=== PATIENT | female | born 1940 | race American Indian/Alaskan Native ===

== ENCOUNTER 2017-06-05 14:40 | Emergency (ER) | payer MEDICARE ==
[2017-06-05 15:52] LABS: Urine Drugs of Abuse Note Disclamer
[2017-06-05 15:56] LABS: Basophils % (Auto) 0.9 % (0.0-1.8); Eosinophils % (Auto) 4.2 % (0.0-4.3); Hematocrit 33.9 % (30.3-42.9); Hemoglobin 11.4 gm/dl (10.1-14.3); Mean Corpuscular HGB Conc 34 % (30-34); Mean Corpuscular Hemoglobin 31 pg (28-32); Mean Corpuscular Volume 92 fl (79-97); Platelet Count 206 K/mm3 (140-440); Red Blood Count 3.71 M/mm3 (3.65-5.03); White Blood Count 6.3 K/mm3 (4.5-11.0)
[2017-06-05 16:13] LABS: Albumin 3.7 g/dL (3.9-5); Albumin/Globulin Ratio 1.3 %; Bilirubin,Total 0.9 mg/dL (0.1-1.2); Calcium 8.7 mg/dL (8.4-10.2); Magnesium 1.8 mg/dL (1.7-2.3); Total Protein 6.6 g/dL (6.3-8.2)
[2017-06-05 16:14] LABS: Chloride 96.7 mmol/L (98-107); Potassium 4.4 mmol/L (3.6-5.0)
[2017-06-05 16:23] LABS: Bilirubin,Urine NEG (Negative); Blood,Urine NEG (Negative); Ketones,Urine NEG (Negative); Leukocyte Esterase,Urine NEG (Negative); Nitrite,Urine NEG (Negative); Protein,Urine <15 mg/dL mg/dL (Negative); Urobilinogen,Urine < 2.0 mg/dL (<2.0)
--- NOTE | 2017-06-05 18:36 | Cat Scan Report ---
FINAL REPORT PROCEDURE: CT HEAD/BRAIN WO CON TECHNIQUE: Computerized tomography of the head was performed without contrast material. HISTORY: slurred speech COMPARISON: No prior studies are available for comparison. FINDINGS: Brain: There is no evidence of intracranial hemorrhage. No parenchymal hemorrhage is seen. No mass lesions or mass effect is identified. No abnormal extra-axial fluid collections or masses are seen. Nonspecific mineralization of the basal ganglia visualized on the right. There is some decreased density seen in the periventricular white matter without mass effect. This is fairly symmetric and does not exhibit any mass effect consistent with gliosis probably on the basis of microvascular disease or white matter changes of aging. Ventricles: The ventricles, sulcal pattern and fissures are prominent consistent with atrophy. Bones: No evidence of acute fracture. Paranasal sinuses: Visualized portions appear clear. Mastoid air cells: clear IMPRESSION: There is evidence of mild atrophy and gliosis. No acute intracranial abnormalities are seen. If symptoms persist or worsen consider follow-up CT scan or MRI for further evaluation.
--- NOTE | 2017-06-05 18:52 | Emergency Department Report ---
ED General Adult HPI - General Chief complaint: Dizziness Stated complaint: SLURRED SPEECH,DIZZINESS Time Seen by Provider: 06/05/17 16:10 Source: patient, family, EMS Mode of arrival: Stretcher Limitations: Physical Limitation - History of Present Illness Initial comments: The patient had a very vague episode during dialysis. According to her and the staff that she might be having a stroke. The patient herself is completely at her baseline. The states there is no slurred speech or any focal neurological signs. He clearly states that her mental status does wax and wane due to dementia. The patient is unable to tell me her corrected age of month and year. She can' t tell me that she's in an emergency department. All this is her baseline. Her speech is not slurred. She has no current complaints. -: minutes(s) Consistency: now resolved Improves with: none Worsens with: none Associated Symptoms: denies other symptoms - Related Data Home Medications Medication Instructions Recorded Confirmed Last Taken Carvedilol [Coreg] 25 mg PO BID 01/19/15 09/19/16 06/20/16 Gabapentin 300 mg PO BID 01/19/15 09/19/16 06/20/16 Insulin NPH Hum/Reg Insulin Hm 35 unit SQ QAM 01/19/15 09/19/16 06/20/16 [HumuLIN 70-30 Vial] Pantoprazole Sodium [Protonix] 40 mg PO QDAY 01/19/15 09/19/16 06/20/16 amLODIPine [Norvasc] 10 mg PO DAILY 01/19/15 09/19/16 06/20/16 Dorzolamide HCl/Timolol Maleat 10 ml OP QDAY 09/19/16 09/19/16 Unknown [Dorzolamide-Timolol Eye Drops] Torsemide [Demadex] 10 mg PO QDAY 09/19/16 09/19/16 Unknown Previous Rx's Medication Instructions Recorded Last Taken Type Levofloxacin [Levaquin TAB] 500 mg PO QDAY #7 tablet 09/21/16 Unknown Rx Allergies Allergy/AdvReac Type Severity Reaction Status Date / Time methadone AdvReac Vomiting Verified 04/06/15 11:54 tramadol AdvReac Vomiting Verified 04/06/15 11:54 unknown Allergy Unknown Uncoded 04/06/15 11:54 ED Review of Systems ROS: Stated complaint: SLURRED SPEECH,DIZZINESS Other details as noted in HPI Comment: All other systems reviewed and negative (but limited secondary to dementia) ED Past Medical Hx - Past Medical History Previous Medical History?: Yes Hx Hypertension: Yes Hx Heart Attack/AMI: No Hx Congestive Heart Failure: Yes Hx Diabetes: Yes Hx Deep Vein Thrombosis: No Hx Pulmonary Embolism: No Hx Liver Disease: No Hx Renal Disease: Yes Hx Sickle Cell Disease: No Hx Arthritis: No Hx Seizures: No Hx Kidney Stones: No Hx Asthma: No Hx COPD: No Hx Tuberculosis: No Hx Dementia: No Hx HIV: No - Surgical History Past Surgical History?: Yes Hx Coronary Stent: No Hx Pacemaker: No Hx Internal Defibrillator: No Additional Surgical History: L kidney removed, Back surgery, Hysterectomy - Social History Smoking Status: Former Smoker Substance Use Type: Prescribed - Medications Home Medications: Home Medications Medication Instructions Recorded Confirmed Last Taken Type Carvedilol [Coreg] 25 mg PO BID 01/19/15 09/19/16 06/20/16 History Gabapentin 300 mg PO BID 01/19/15 09/19/16 06/20/16 History Insulin NPH Hum/Reg Insulin Hm 35 unit SQ QAM 01/19/15 09/19/16 06/20/16 History [HumuLIN 70-30 Vial] Pantoprazole Sodium [Protonix] 40 mg PO QDAY 01/19/15 09/19/16 06/20/16 History amLODIPine [Norvasc] 10 mg PO DAILY 01/19/15 09/19/16 06/20/16 History Dorzolamide HCl/Timolol Maleat 10 ml OP QDAY 09/19/16 09/19/16 Unknown History [Dorzolamide-Timolol Eye Drops] Torsemide [Demadex] 10 mg PO QDAY 09/19/16 09/19/16 Unknown History Levofloxacin [Levaquin TAB] 500 mg PO QDAY #7 tablet 09/21/16 Unknown Rx ED Physical Exam - General Limitations: Physical Limitation General appearance: alert, in no apparent distress - Head Head exam: Present: atraumatic, normocephalic - Eye Eye exam: Present: normal appearance, PERRL, EOMI. Absent: scleral icterus - ENT ENT exam: Present: normal exam, mucous membranes moist - Neck Neck exam: Present: normal inspection. Absent: tenderness, meningismus - Respiratory Respiratory exam: Present: normal lung sounds bilaterally. Absent: respiratory distress - Cardiovascular Cardiovascular Exam: Present: regular rate, normal rhythm. Absent: systolic murmur, diastolic murmur, rubs, gallop - GI/Abdominal GI/Abdominal exam: Present: soft, normal bowel sounds. Absent: distended, tenderness, guarding, rebound, rigid - Extremities Exam Extremities exam: Present: normal inspection - Back Exam Back exam: Present: normal inspection - Neurological Exam Neurological exam: Present: alert, oriented X3, CN II-XII intact. Absent: motor sensory deficit - Psychiatric Psychiatric exam: Present: normal mood, flat affect - Skin Skin exam: Present: warm, dry, intact, normal color. Absent: rash ED Course Vital Signs 06/05/17 06/05/17 06/05/17 14:47 14:51 15:00 Temperature 98.4 F Pulse Rate 79 84 Respiratory 17 15 16 Rate Blood Pressure 122/57 127/47 Blood Pressure 122/57 [Right] O2 Sat by Pulse 95 93 Oximetry 06/05/17 06/05/17 06/05/17 15:16 15:30 15:46 Temperature Pulse Rate 92 H 90 84 Respiratory 14 15 11 L Rate Blood Pressure 127/47 127/47 127/47 Blood Pressure [Right] O2 Sat by Pulse 92 91 Oximetry 06/05/17 06/05/17 06/05/17 16:00 16:16 16:30 Temperature Pulse Rate 82 80 71 Respiratory 16 15 11 L Rate Blood Pressure 127/47 127/47 143/59 Blood Pressure [Right] O2 Sat by Pulse 97 96 98 Oximetry 06/05/17 06/05/17 06/05/17 16:36 16:45 17:00 Temperature Pulse Rate 76 74 70 Respiratory 14 11 L 13 Rate Blood Pressure 125/64 120/54 Blood Pressure 130/61 [Right] O2 Sat by Pulse 99 98 99 Oximetry 06/05/17 06/05/17 06/05/17 17:51 18:00 18:15 Temperature Pulse Rate 79 81 77 Respiratory 16 14 20 Rate Blood Pressure 125/64 128/69 125/51 Blood Pressure [Right] O2 Sat by Pulse 95 97 Oximetry ED Medical Decision Making - Lab Data Result diagrams: 06/05/17 15:40 06/05/17 15:40 Laboratory Results - last 24 hr 11/15/17 11/15/17 11/15/17 15:30 15:40 15:40 WBC 6.3 RBC 3.71 Hgb 11.4 Hct 33.9 MCV 92 MCH 31 MCHC 34 RDW 14.0 Plt Count 206 Lymph % (Auto) 36.4 H [place] % (Auto) 4.4 Eos % (Auto) 4.2 Baso % (Auto) 0.9 Lymph # 2.3 [place] # 0.3 Eos # 0.3 Baso # 0.1 Seg Neutrophils % 54.1 Seg Neutrophils # 3.4 Sodium 140 Potassium 4.4 Chloride 96.7 L Carbon Dioxide 29 Anion Gap 19 BUN 9 Creatinine 1.1 Estimated GFR 59 BUN/Creatinine Ratio 8 Glucose 206 H POC Glucose Lactic Acid 1.90 Calcium 8.7 Magnesium 1.80 Total Bilirubin 0.90 AST 17 ALT 19 Alkaline Phosphatase 125 Total Protein 6.6 Albumin 3.7 L Albumin/Globulin Ratio 1.3 TSH Urine Color Urine Turbidity Urine pH Ur Specific [place] Urine Protein Urine Glucose (UA) Urine Ketones Urine Blood Urine Nitrite Urine Bilirubin Urine Urobilinogen Ur Leukocyte Esterase Urine WBC (Auto) Urine RBC (Auto) U Epithel Cells (Auto) Salicylates Urine Opiates Screen Urine Methadone Screen Acetaminophen Ur Barbiturates Screen Ur Phencyclidine Scrn Ur Amphetamines Screen U Benzodiazepines Scrn Urine Cocaine Screen U Marijuana (THC) Screen Drugs of Abuse Note Plasma/Serum Alcohol 06/05/17 06/05/17 06/05/17 15:40 15:40 15:40 WBC RBC Hgb Hct MCV MCH MCHC RDW Plt Count Lymph % (Auto) [place] % (Auto) Eos % (Auto) Baso % (Auto) Lymph # [place] # Eos # Baso # Seg Neutrophils % Seg Neutrophils # Sodium Potassium Chloride Carbon Dioxide Anion Gap BUN Creatinine Estimated GFR BUN/Creatinine Ratio Glucose POC Glucose Lactic Acid Calcium Magnesium Total Bilirubin AST ALT Alkaline Phosphatase Total Protein Albumin Albumin/Globulin Ratio TSH 1.810 Urine Color Urine Turbidity Urine pH Ur Specific [place] Urine Protein Urine Glucose (UA) Urine Ketones Urine Blood Urine Nitrite Urine Bilirubin Urine Urobilinogen Ur Leukocyte Esterase Urine WBC (Auto) Urine RBC (Auto) U Epithel Cells (Auto) Salicylates < 0.3 L Urine Opiates Screen Urine Methadone Screen Acetaminophen < 15.0 Ur Barbiturates Screen Ur Phencyclidine Scrn Ur Amphetamines Screen U Benzodiazepines Scrn Urine Cocaine Screen U Marijuana (THC) Screen Drugs of Abuse Note Plasma/Serum Alcohol 06/05/17 06/05/17 06/05/17 15:40 15:47 15:48 WBC RBC Hgb Hct MCV MCH MCHC RDW Plt Count Lymph % (Auto) [place] % (Auto) Eos % (Auto) Baso % (Auto) Lymph # [place] # Eos # Baso # Seg Neutrophils % Seg Neutrophils # Sodium Potassium Chloride Carbon Dioxide Anion Gap BUN Creatinine Estimated GFR BUN/Creatinine Ratio Glucose POC Glucose 223 H Lactic Acid Calcium Magnesium Total Bilirubin AST ALT Alkaline Phosphatase Total Protein Albumin Albumin/Globulin Ratio TSH Urine Color Yellow Urine Turbidity Clear Urine pH 7.0 Ur Specific [place] 1.013 Urine Protein <15 mg/dl Urine Glucose (UA) >=500 Urine Ketones Neg Urine Blood Neg Urine Nitrite Neg Urine Bilirubin Neg Urine Urobilinogen < 2.0 Ur Leukocyte Esterase Neg Urine WBC (Auto) 4.0 Urine RBC (Auto) 1.0 U Epithel Cells (Auto) 3.0 Salicylates Urine Opiates Screen Urine Methadone Screen Acetaminophen Ur Barbiturates Screen Ur Phencyclidine Scrn Ur Amphetamines Screen U Benzodiazepines Scrn Urine Cocaine Screen U Marijuana (THC) Screen Drugs of Abuse Note Plasma/Serum Alcohol < 0.01 06/05/17 06/05/17 15:48 18:03 WBC RBC Hgb Hct MCV MCH MCHC RDW Plt Count Lymph % (Auto) [place] % (Auto) Eos % (Auto) Baso % (Auto) Lymph # [place] # Eos # Baso # Seg Neutrophils % Seg Neutrophils # Sodium Potassium Chloride Carbon Dioxide Anion Gap BUN Creatinine Estimated GFR BUN/Creatinine Ratio Glucose POC Glucose Lactic Acid 1.00 Calcium Magnesium Total Bilirubin AST ALT Alkaline Phosphatase Total Protein Albumin Albumin/Globulin Ratio TSH Urine Color Urine Turbidity Urine pH Ur Specific [place] Urine Protein Urine Glucose (UA) Urine Ketones Urine Blood Urine Nitrite Urine Bilirubin Urine Urobilinogen Ur Leukocyte Esterase Urine WBC (Auto) Urine RBC (Auto) U Epithel Cells (Auto) Salicylates Urine Opiates Screen Presumptive negative Urine Methadone Screen Presumptive negative Acetaminophen Ur Barbiturates Screen Presumptive negative Ur Phencyclidine Scrn Presumptive negative Ur Amphetamines Screen Presumptive negative U Benzodiazepines Scrn Presumptive negative Urine Cocaine Screen Presumptive negative U Marijuana (THC) Screen Presumptive negative Drugs of Abuse Note Disclamer Plasma/Serum Alcohol - EKG Data -: EKG Interpreted by In EKG shows normal: sinus rhythm, axis, intervals, QRS complexes, ST-T waves Rate: normal - EKG Data Interpretation: other (minute piece nonspecific changes) Critical care attestation.: If time is entered above; I have spent that time in minutes in the direct care of this critically ill patient, excluding procedure time. ED Disposition Clinical Impression: Dementia Altered mental status Qualifiers: Altered mental status type: transient alteration of awareness Qualified Code(s) : R40.4 - Transient alteration of awareness Disposition: DC-01 TO HOME OR SELFCARE Is pt being admited?: No Does the pt Need Aspirin: No Condition: Stable Instructions: Dementia (ED), Altered Mental Status (ED) Additional Instructions: Return any acute change or problem. Referrals: PRIMARY CARE, [Primary Care Provider] - 3-5 Days Time of Disposition: 18:54
[2017-06-05 19:02] VITALS: BP 137/95
== END 2017-06-05 19:02 | disposition home or self-care (01) ==
LOC: ED 14:40
DX: F03.90 Unspecified dementia, unspecified severity, without behavioral disturbance, psychotic disturbance, mood disturbance, and anxiety (principal); I10 Essential (primary) hypertension; E11.9 Type 2 diabetes mellitus without complications
CPT/HCPCS: 36415; 70450; 80053; 80307; 81001; 82140; 82962; 83735; 84443; 85025; 93005; 93010; 99285; G0480; 80320

== ENCOUNTER 2017-06-15 17:10 | Inpatient (IN) | payer MEDICARE ==
[2017-06-15] MEDS ORDERED: NACL 0.9% 500 ML 500 ML ONE (18:12)
[2017-06-15] MEDS ORDERED: NACL 0.9% 500 ML 500 ML IV ONE ×2 (18:17→23:22)
[2017-06-15 19:22] LABS: Basophils % (Auto) 0.7 % (0.0-1.8); Eosinophils % (Auto) 1.1 % (0.0-4.3); Hematocrit 31.5 % (30.3-42.9); Hemoglobin 10.2 gm/dl (10.1-14.3); Mean Corpuscular HGB Conc 33 % (30-34); Mean Corpuscular Hemoglobin 32 pg (28-32); Mean Corpuscular Volume 97 fl (79-97); Platelet Count 205 K/mm3 (140-440); Red Blood Count 3.25 M/mm3 (3.65-5.03); Red Cell Distribution Width 15.8 % (13.2-15.2); White Blood Count 3.7 K/mm3 (4.5-11.0)
[2017-06-15 19:34] LABS: Calcium 8.5 mg/dL (8.4-10.2); Chloride 96.3 mmol/L (98-107); Potassium 3.9 mmol/L (3.6-5.0)
[2017-06-15] MEDS ORDERED: NACL 0.9% 500 ML IV SCH (20:00)
--- NOTE | 2017-06-15 20:11 | Emergency Department Report ---
- General Chief complaint: Hyperglycemia Stated complaint: AMS Time Seen by Provider: 06/15/17 19:44 Source: patient, family, EMS Mode of arrival: Stretcher Limitations: Physical Limitation - History of Present Illness Initial comments: 76 yo female renal dialysis pt who was dialyzed yesterday is here with hyperglycemia and weakness . She had an episode of nausea with vomiting yesterday-only a single episode . She denies sob/chest pain but feels tired. her weakness usually goes away within a few hours after dialysis but thsi has continued. Severity scale (0 -10): 0 - Related Data Home Medications Medication Instructions Recorded Confirmed Last Taken Carvedilol [Coreg] 25 mg PO BID 01/19/15 09/19/16 06/20/16 Gabapentin 300 mg PO BID 01/19/15 09/19/16 06/20/16 Insulin NPH Hum/Reg Insulin Hm 35 unit SQ QAM 01/19/15 09/19/16 06/20/16 [HumuLIN 70-30 Vial] Pantoprazole Sodium [Protonix] 40 mg PO QDAY 01/19/15 09/19/16 06/20/16 amLODIPine [Norvasc] 10 mg PO DAILY 01/19/15 09/19/16 06/20/16 Dorzolamide HCl/Timolol Maleat 10 ml OP QDAY 09/19/16 09/19/16 Unknown [Dorzolamide-Timolol Eye Drops] Torsemide [Demadex] 10 mg PO QDAY 09/19/16 09/19/16 Unknown Previous Rx's Medication Instructions Recorded Last Taken Type Levofloxacin [Levaquin TAB] 500 mg PO QDAY #7 tablet 09/21/16 Unknown Rx Allergies Allergy/AdvReac Type Severity Reaction Status Date / Time methadone AdvReac Vomiting Verified 04/06/15 11:54 tramadol AdvReac Vomiting Verified 04/06/15 11:54 unknown Allergy Unknown Uncoded 04/06/15 11:54 ED Review of Systems ROS: Stated complaint: AMS Other details as noted in HPI Constitutional: denies: chills, fever Eyes: denies: eye pain, eye discharge, vision change ENT: denies: ear pain, throat pain Respiratory: denies: cough, shortness of breath, wheezing Cardiovascular: denies: chest pain, palpitations Endocrine: no symptoms reported Gastrointestinal: nausea, vomiting. denies: abdominal pain, diarrhea Genitourinary: denies: urgency, dysuria, discharge Musculoskeletal: denies: back pain, joint swelling, arthralgia Skin: denies: rash, lesions Neurological: weakness. denies: headache, paresthesias Psychiatric: denies: anxiety, depression Hematological/Lymphatic: denies: easy bleeding, easy bruising ED Past Medical Hx - Past Medical History Hx Hypertension: Yes Hx Heart Attack/AMI: No Hx Congestive Heart Failure: Yes Hx Diabetes: Yes Hx Deep Vein Thrombosis: No Hx Pulmonary Embolism: No Hx Liver Disease: No Hx Renal Disease: Yes Hx Sickle Cell Disease: No Hx Arthritis: No Hx Seizures: No Hx Kidney Stones: No Hx Asthma: No Hx COPD: No Hx Tuberculosis: No Hx Dementia: No Hx HIV: No - Surgical History Hx Coronary Stent: No Hx Pacemaker: No Hx Internal Defibrillator: No Additional Surgical History: L kidney removed, Back surgery, Hysterectomy - Social History Smoking Status: Current Some Day Smoker Substance Use Type: None - Medications Home Medications: Home Medications Medication Instructions Recorded Confirmed Last Taken Type Carvedilol [Coreg] 25 mg PO BID 01/19/15 09/19/16 06/20/16 History Gabapentin 300 mg PO BID 01/19/15 09/19/16 06/20/16 History Insulin NPH Hum/Reg Insulin Hm 35 unit SQ QAM 01/19/15 09/19/16 06/20/16 History [HumuLIN 70-30 Vial] Pantoprazole Sodium [Protonix] 40 mg PO QDAY 01/19/15 09/19/16 06/20/16 History amLODIPine [Norvasc] 10 mg PO DAILY 01/19/15 09/19/16 06/20/16 History Dorzolamide HCl/Timolol Maleat 10 ml OP QDAY 09/19/16 09/19/16 Unknown History [Dorzolamide-Timolol Eye Drops] Torsemide [Demadex] 10 mg PO QDAY 09/19/16 09/19/16 Unknown History Levofloxacin [Levaquin TAB] 500 mg PO QDAY #7 tablet 09/21/16 Unknown Rx ED Physical Exam - General Limitations: Physical Limitation General appearance: alert, in no apparent distress, other (appears weak,not energized enough to sit up) - Head Head exam: Present: atraumatic, normocephalic - Eye Eye exam: Present: normal appearance, EOMI. Absent: scleral icterus, conjunctival injection - ENT ENT exam: Present: mucous membranes dry - Neck Neck exam: Present: normal inspection, full ROM - Respiratory Respiratory exam: Present: normal lung sounds bilaterally, rales (bases). Absent: respiratory distress - Cardiovascular Cardiovascular Exam: Present: regular rate, normal rhythm. Absent: systolic murmur, diastolic murmur, rubs, gallop - GI/Abdominal GI/Abdominal exam: Present: soft, normal bowel sounds - Rectal Rectal exam: Present: deferred - Extremities Exam Extremities exam: Present: normal inspection, pedal edema (trace) - Back Exam Back exam: Present: normal inspection, full ROM - Neurological Exam Neurological exam: Present: alert, oriented X3 - Psychiatric Psychiatric exam: Present: normal mood, depressed - Skin Skin exam: Present: warm, dry, intact, normal color, other (midline lower abdominal surgical scar). Absent: rash - Assessment Assessment Interval: Baseline - Level of Consciousness 1a. Level of Consciousness: alert - LOC Questions 1b. LOC Questions: answers correctly - LOC Command 1c. LOC Commands: performs tasks correctly - Best Gaze 2. Best Gaze: normal - Visual 3. Visual: no visual loss - Facial Palsy 4. Facial Palsy: normal symmetrical movement - Motor Arm 5b. Motor Arm Right: no drift 5a. Motor Arm Left: no drift - Limb Ataxia 7. Limb Ataxia: absent - Sensory 8. Sensory: normal - Best Language 9. Best Language: no aphasia - Dysarthria 10. Dysarthria: normal ED Course Vital Signs 06/15/17 06/15/17 06/15/17 17:22 17:55 18:00 Temperature 97.4 F L 97.4 F L Pulse Rate 56 L 53 L Respiratory 18 18 18 Rate Blood Pressure 93/52 Blood Pressure 93/52 [Left] O2 Sat by Pulse 97 97 96 Oximetry 06/15/17 06/15/17 06/15/17 23:11 23:13 23:15 Temperature Pulse Rate Respiratory Rate Blood Pressure 86/34 86/34 86/34 Blood Pressure [Left] O2 Sat by Pulse 94 89 91 Oximetry 06/15/17 06/15/17 06/15/17 23:17 23:19 23:21 Temperature Pulse Rate Respiratory Rate Blood Pressure 86/34 86/34 86/34 Blood Pressure [Left] O2 Sat by Pulse 91 84 88 Oximetry 06/15/17 06/15/17 06/15/17 23:23 23:25 23:27 Temperature Pulse Rate Respiratory Rate Blood Pressure 86/34 86/34 86/34 Blood Pressure [Left] O2 Sat by Pulse 89 84 81 L Oximetry 06/15/17 06/15/17 06/15/17 23:29 23:31 23:33 Temperature Pulse Rate Respiratory Rate Blood Pressure 86/34 86/34 86/34 Blood Pressure [Left] O2 Sat by Pulse 79 L 89 90 Oximetry 06/15/17 06/15/17 06/15/17 23:35 23:37 23:39 Temperature Pulse Rate Respiratory Rate Blood Pressure 86/34 86/34 86/34 Blood Pressure [Left] O2 Sat by Pulse 85 89 86 Oximetry 06/15/17 06/15/17 06/15/17 23:41 23:43 23:45 Temperature Pulse Rate Respiratory Rate Blood Pressure 86/34 86/34 86/34 Blood Pressure [Left] O2 Sat by Pulse 84 90 95 Oximetry 06/15/17 06/15/17 06/15/17 23:47 23:49 23:51 Temperature Pulse Rate Respiratory Rate Blood Pressure 86/34 86/34 86/34 Blood Pressure [Left] O2 Sat by Pulse 84 83 L 82 L Oximetry 06/15/17 06/15/17 06/15/17 23:53 23:55 23:57 Temperature Pulse Rate Respiratory Rate Blood Pressure 86/34 86/34 86/34 Blood Pressure [Left] O2 Sat by Pulse 84 88 100 Oximetry 06/15/17 06/16/17 06/16/17 23:59 00:00 00:02 Temperature Pulse Rate Respiratory Rate Blood Pressure 86/34 92/39 90/39 Blood Pressure [Left] O2 Sat by Pulse 96 86 82 L Oximetry 06/16/17 06/16/17 06/16/17 00:05 00:07 00:09 Temperature Pulse Rate Respiratory Rate Blood Pressure 90/39 90/39 90/39 Blood Pressure [Left] O2 Sat by Pulse 87 90 100 Oximetry 06/16/17 06/16/17 06/16/17 00:11 00:12 00:15 Temperature Pulse Rate Respiratory Rate Blood Pressure 88/44 88/44 98/54 Blood Pressure [Left] O2 Sat by Pulse 96 96 100 Oximetry 06/16/17 06/16/17 06/16/17 00:17 00:19 00:21 Temperature Pulse Rate Respiratory Rate Blood Pressure 98/54 98/54 98/54 Blood Pressure [Left] O2 Sat by Pulse 100 100 100 Oximetry 06/16/17 06/16/17 06/16/17 00:23 00:25 00:27 Temperature Pulse Rate Respiratory Rate Blood Pressure 98/54 98/54 98/54 Blood Pressure [Left] O2 Sat by Pulse 100 100 100 Oximetry 06/16/17 06/16/17 06/16/17 00:29 00:30 00:33 Temperature Pulse Rate Respiratory Rate Blood Pressure 98/54 90/55 90/55 Blood Pressure [Left] O2 Sat by Pulse 100 100 100 Oximetry 06/16/17 06/16/17 06/16/17 00:34 00:37 00:39 Temperature Pulse Rate Respiratory Rate Blood Pressure 90/55 90/55 90/55 Blood Pressure [Left] O2 Sat by Pulse 100 99 Oximetry 06/16/17 06/16/17 06/16/17 00:40 00:43 00:45 Temperature Pulse Rate 60 Respiratory Rate Blood Pressure 90/47 90/47 90/47 Blood Pressure [Left] O2 Sat by Pulse 97 100 100 Oximetry 06/16/17 06/16/17 06/16/17 00:47 00:49 00:52 Temperature 97.6 F Pulse Rate 63 61 59 L Respiratory 22 14 18 Rate Blood Pressure 90/47 90/47 Blood Pressure 88/44 [Left] O2 Sat by Pulse 100 100 99 Oximetry - Reevaluation(s) Reevaluation #1: 06/16/17 02:46 pt had small boluses of normal saline each time watching her pressure. she received 250ml, per time then eventually started on levaphed ater antibiiotics and 1000 had been given. - Central Line Placement Right Femoral Consent Obtained: verbal consent Time Out Performed: Yes MD Prep: mask, gown, gloves, other (head cover) Central Line Prep: Chlorhexidine scrub (x2) Local Anesthesia Used: Lidocaine 2% Amount of Anesthesia Used (mls): 5 Ultrasound Used for Placement: Yes Central Line Lumen Inserted: triple Bloods Obtained for Lab: No Central Line Position: good blood return, all ports aspirated, flus, sutured in place with 2-0 Dressing Applied: Tegaderm, sterile gauze/tape Post Procedure X-Ray: tip of catheter in good p Patient Tolerated Procedure: well Complications: none ED Medical Decision Making - Lab Data Result diagrams: 06/15/17 19:00 06/15/17 19:00 Critical Care Time: Yes Critical care time in (mins) excluding proc time.: 90 Critical care attestation.: If time is entered above; I have spent that time in minutes in the direct care of this critically ill patient, excluding procedure time. daniele Critical Care Time: 90 minutes ED Disposition Clinical Impression: Acute UTI, Hyperglycemia Sepsis Qualifiers: Sepsis type: sepsis due to unspecified organism Qualified Code(s): A41.9 - Sepsis, unspecified organism Altered mental status Qualifiers: Altered mental status type: transient alteration of awareness Qualified Code(s) : R40.4 - Transient alteration of awareness UTI (urinary tract infection) Qualifiers: Urinary tract infection type: acute cystitis Hematuria presence: without hematuria Qualified Code(s): N30.00 - Acute cystitis without hematuria Disposition: OP ADMIT IP TO THIS HOSP Is pt being admited?: Yes Does the pt Need Aspirin: No Condition: Critical Referrals: PRIMARY CARE, [Primary Care Provider] - 3-5 Days Time of Disposition: 02:49 (case reviewed with dr sydney Mcneil and she will admit pt to hospital)
[2017-06-15 20:38] LABS: Bacteria,Urine 1+ /HPF (Negative); Bilirubin,Urine SM (Negative); Blood,Urine MOD (Negative); Ketones,Urine NEG (Negative); Leukocyte Esterase,Urine MOD (Negative); Mucus,Urine 1+ /HPF; Nitrite,Urine NEG (Negative)
[2017-06-15 20:52] LABS: INR 1.31 (0.87-1.13)
[2017-06-15 20:53] LABS: Partial Thromboplastin Time 35.3 Sec. (24.2-36.6)
--- NOTE | 2017-06-15 20:57 | Cat Scan Report ---
FINAL REPORT PROCEDURE: CT HEAD/BRAIN W/O CON TECHNIQUE: Computerized tomography of the head was performed without contrast material. HISTORY: ams COMPARISON: 06/05/2017 FINDINGS: Skull and scalp: Normal. Paranasal sinuses: Mucosal thickening is noted involving left maxillary sinus.. Ventricles and subarachnoid spaces: Are prominent consistent with cerebral atrophy.. Cerebrum: No evidence of hemorrhage, acute infarction or mass . Cerebellum and brainstem: No evidence of hemorrhage, acute infarction or mass. Vasculature: Atherosclerotic calcification is noted involving bilateral internal carotid and vertebral arteries.. Comments: None. IMPRESSION: Cerebral atrophy appropriate for patient's age. Chronic left maxillary sinusitis. No acute intracranial abnormality
[2017-06-15 21:32] LABS: Creatine Kinase 147 units/L (30-135); Creatine Kinase MB 1.8 ng/mL (0.0-4.0)
[2017-06-15] MEDS ORDERED: NACL ONE (21:57)
--- NOTE | 2017-06-15 23:15 | Cat Scan Report ---
FINAL REPORT PROCEDURE: CT ANGIO CHEST TECHNIQUE: Computerized tomographic angiography of the chest was performed after the IV injection of iodinated nonionic contrast including image processing. The image data was postprocessed using 2-dimensional multiplanar reformatted (MPR) and 3-dimensional (MIP and/or volume rendered) techniques. HISTORY: chest pain,elevated ddimer COMPARISON: No prior studies are available for comparison. FINDINGS: Bilateral pulmonary arteries and their branches demonstrate normal opacification without filling defects. Aorta is not opacified. There is no evidence of aneurysm. Coronary arterial calcifications is noted. There is moderate cardiomegaly. Reflux of contrast is noted into the inferior vena cava and hepatic veins consistent with right heart failure. There are mild bilateral pleural effusions. Prominent interstitial markings are noted involving bilateral lungs. There are no confluent infiltrates or mass lesions. IMPRESSION: Changes of cardiomegaly with CHF. No evidence of pulmonary embolism Lymphadenopathy is noted in the pretracheal and as ago esophageal regions.
[2017-06-15] MEDS ORDERED: XYLOCAINE 1% MPF 5 mL INFILTRATI ONE (23:21)
[2017-06-15] MEDS ORDERED: cefTRIAXone 1 GM in NACL 0.9% 20 ML IV ONE (23:30)
[2017-06-15] MEDS ORDERED: ROCEPHIN 1,000 MG in NACL 0.9% 50 ML IV NR (23:45)
[2017-06-16] MEDS: LEVOPHED DRIP 4 MG/NS 250 ML 4 MG/250 ML BAG IV SCH ×3 (02:15→21:35)
[2017-06-16] MEDS ORDERED: DULCOLAX PR PRN (03:32)
--- NOTE | 2017-06-16 03:56 | History and Physical Report ---
History of Present Illness Date of examination: 06/16/17 Date of admission: 06/16/17 03:32 History of present illness: 75 year old woman with a history of hypertension, diabetes complicated by neuropathy, peripheral vascular, history of nephrectomy comes to the emergency room with complaints of generalized weakness, urinary frequency, nausea vomiting. Patient was hypotensive in the emergency room with systolic blood pressure of 70s, given IV fluid bolus Review Of Systems: Constitutional: no weight loss Ears, eyes, nose, mouth and throat: no nasal congestion, no nasal discharge, no sinus pressure, blurry vision, diplopia Neck: No neck pain or rigidity. Cardiovascular: no chest pain, orthopnea, palpitations Respiratory: No shortness of breath, cough Gastrointestinal: no abdominal pain, hematochezia Genitourinary : no dysuria, frequency , hematuria Musculoskeletal: no muscle ache Integumentary: no rash, no pruritis Neurological: no parathesias, focal weakness Endocrine: no cold or heat intolerance, no polyuria or polydipsia Hematologic/Lymphatic: no easy bruising, no easy bleeding, no gland swelling Allergic/Immunologic: no urticaria, no angioedema. PAST SURGICAL HISTORY: Appendectomy,back surgery, nephrectomy SOCIAL HISTORY:Denies alcohol, tobacco and drugs FAMILY HISTORY:Hypertension, Diabetes Medications and Allergies Allergies Allergy/AdvReac Type Severity Reaction Status Date / Time methadone AdvReac Vomiting Verified 04/06/15 11:54 tramadol AdvReac Vomiting Verified 04/06/15 11:54 unknown Allergy Unknown Uncoded 04/06/15 11:54 Home Medications Medication Instructions Recorded Confirmed Last Taken Type Carvedilol [Coreg] 25 mg PO BID 01/19/15 09/19/16 06/20/16 History Gabapentin 300 mg PO BID 01/19/15 09/19/16 06/20/16 History Insulin NPH Hum/Reg Insulin Hm 35 unit SQ QAM 01/19/15 09/19/16 06/20/16 History [HumuLIN 70-30 Vial] Pantoprazole Sodium [Protonix] 40 mg PO QDAY 01/19/15 09/19/16 06/20/16 History amLODIPine [Norvasc] 10 mg PO DAILY 01/19/15 09/19/16 06/20/16 History Dorzolamide HCl/Timolol Maleat 10 ml OP QDAY 09/19/16 09/19/16 Unknown History [Dorzolamide-Timolol Eye Drops] Torsemide [Demadex] 10 mg PO QDAY 09/19/16 09/19/16 Unknown History Levofloxacin [Levaquin TAB] 500 mg PO QDAY #7 tablet 09/21/16 Unknown Rx Active Meds: Active Medications Acetaminophen (Tylenol) 650 mg PO Q4H PRN PRN Reason: Pain MILD(1-3)/Fever >100.5/ALVARADO Bisacodyl (Dulcolax) 10 mg [place] QDAY PRN PRN Reason: Constipation unrelieved by MOM Enoxaparin Sodium (Lovenox) 30 mg SUB-Q QDAY MUNA Gabapentin (Neurontin) 300 mg PO BID MUNA Norepinephrine (Levophed Drip 4 Mg/Ns 250 Ml) 4 mg in 250 mls @ 7.5 mls/hr IV TITR MUNA; 2 MCG/MIN PRN Reason: Protocol Last Titration: 06/16/17 02:56 Dose: 6 mcg/min, 22.5 mls/hr Insulin Human Isoph/Insulin Regular (Novolin 70/30) 35 unit SUB-Q QAM MUNA Miscellaneous Medication (Dorzolamide Hcl/Timolol Maleat [Dorzolamide-Timolol Eye Drops]) 10 ml OP QDAY MUNA Ondansetron HCl (Zofran) 4 mg IV Q8H PRN PRN Reason: N/V unrelieved by Reglan Pantoprazole Sodium (Protonix) 40 mg PO QDAY MUNA Exam - Physical Exam Narrative exam: Gen. appearance: Patient lying in bed in no acute distress HEENT: Normocephalic/atraumatic, pupils equal round reactive to light, extra alkaline movement intact, no scleral icterus, no JVD or thyromegaly or nodule, neck is supple, mucous membrane moist, no erythema or exudate Heart: S1-S2, regular rate and rhythm Lungs: Clear to auscultation bilateral breathing comfortable Abdomen: Positive bowel sounds, nontender, nondistended, no organomegaly Extremities: No edema, cyanosis, clubbing Neuro:: Oriented 3 , cranial nerves II-12 intact, speech, motor intact Skin: No rash, nodules, warm dry - Constitutional Vitals: Temp Pulse Resp BP Pulse Ox 97.6 F 66 12 96/43 100 06/16/17 00:52 06/16/17 02:35 06/16/17 02:35 06/16/17 02:35 06/16/17 02:35 Results - Labs CBC & Chem 7: 06/15/17 19:00 06/15/17 19:00 Labs: Abnormal lab results 06/15/17 06/15/17 06/15/17 Range/Units 17:52 19:00 19:00 WBC 3.7 L (4.5-11.0) K/mm3 RBC 3.25 L (3.65-5.03) M/mm3 RDW 15.8 H (13.2-15.2) % [place] % (Auto) 7.7 H (0.0-7.3) % Lymph # 0.9 L (1.2-5.4) K/mm3 PT (12.2-14.9) Sec. INR (0.87-1.13) D-Dimer (0-234) ng/mlDDU VBG pH (7.320-7.420) Chloride 96.3 L (98-107) mmol/L BUN 32 H (7-17) mg/dL Creatinine 3.5 H (0.7-1.2) mg/dL Glucose 428 H (65-100) mg/dL POC Glucose > 500 H (70-105) Total Creatine Kinase (30-135) units/L NT-Pro-B Natriuret Pep (0-900) pg/mL Urine WBC (Auto) (0.0-6.0) /HPF 06/15/17 06/15/17 06/15/17 Range/Units 19:00 19:35 20:00 WBC (4.5-11.0) K/mm3 RBC (3.65-5.03) M/mm3 RDW (13.2-15.2) % [place] % (Auto) (0.0-7.3) % Lymph # (1.2-5.4) K/mm3 PT (12.2-14.9) Sec. INR (0.87-1.13) D-Dimer (0-234) ng/mlDDU VBG pH 7.261 L (7.320-7.420) Chloride (98-107) mmol/L BUN (7-17) mg/dL Creatinine (0.7-1.2) mg/dL Glucose (65-100) mg/dL POC Glucose 371 H 384 H (70-105) Total Creatine Kinase (30-135) units/L NT-Pro-B Natriuret Pep (0-900) pg/mL Urine WBC (Auto) (0.0-6.0) /HPF 06/15/17 06/15/17 06/15/17 Range/Units 20:21 20:21 20:21 WBC (4.5-11.0) K/mm3 RBC (3.65-5.03) M/mm3 RDW (13.2-15.2) % [place] % (Auto) (0.0-7.3) % Lymph # (1.2-5.4) K/mm3 PT 16.9 H (12.2-14.9) Sec. INR 1.31 H (0.87-1.13) D-Dimer 985.05 H (0-234) ng/mlDDU VBG pH (7.320-7.420) Chloride (98-107) mmol/L BUN (7-17) mg/dL Creatinine (0.7-1.2) mg/dL Glucose (65-100) mg/dL POC Glucose (70-105) Total Creatine Kinase 147 H (30-135) units/L NT-Pro-B Natriuret Pep 7290 H (0-900) pg/mL Urine WBC (Auto) (0.0-6.0) /HPF 06/15/17 Range/Units Unknown WBC (4.5-11.0) K/mm3 RBC (3.65-5.03) M/mm3 RDW (13.2-15.2) % [place] % (Auto) (0.0-7.3) % Lymph # (1.2-5.4) K/mm3 PT (12.2-14.9) Sec. INR (0.87-1.13) D-Dimer (0-234) ng/mlDDU VBG pH (7.320-7.420) Chloride (98-107) mmol/L BUN (7-17) mg/dL Creatinine (0.7-1.2) mg/dL Glucose (65-100) mg/dL POC Glucose (70-105) Total Creatine Kinase (30-135) units/L NT-Pro-B Natriuret Pep (0-900) pg/mL Urine WBC (Auto) 72.0 H (0.0-6.0) /HPF - Imaging and Cardiology CT scan - chest: report reviewed CT Scan - head: report reviewed Assessment and Plan Assessment Septic shock UTI ESRD renal disease on dialysis Diabetes Plan Admit to medicine Start IV Zosyn, FOllow cultures, check cardiac enzymes Start Levophed drip, consult critical care Consult renal, check fingersticks and initiate insulin size and scale DVT prophylaxis
[2017-06-16] MEDS: ZOSYN/NS 2.25 GM/50ML 2.25 GM/50 ML BAG IV SCH ×3 (05:52→18:53)
[2017-06-16] MEDS ORDERED: ZOSYN/NS 3.375GM/50ML 3.375 GM/50 ML BAG IV SCH (06:00)
[2017-06-16 06:18] LABS: Creatine Kinase MB 1.9 ng/mL (0.0-4.0)
[2017-06-16 06:19] LABS: Creatine Kinase 132 units/L (30-135)
--- NOTE | 2017-06-16 08:12 | Progress Note ---
Assessment and Plan Assessment and plan: --Septic shock; on Levophed, IV fluids, titrate systolic blood pressure to more than 100, map more than 65 --Sepsis secondary to urinary tract infection; continue empiric antibiotics, follow cultures, ID if needed --End-stage renal disease on hemodialysis; dialysis per schedule, nephrology consulted --Type 2 diabetes mellitus; Accu-Chek sliding scale coverage and ADA diet and insulin, check hemoglobin A1c, possible home health nurse at discharge --CHF on CT scan; probably diastolic dysfunction ,echocardiogram for left ventricle function ejection fraction, cannot use diuretics in view of hypotension --DVT prophylaxis; with heparin --Full CODE STATUS Closely monitor the patient and adjust the management as needed Plan of care discussed with the patient and her nurse Critical care time 31 minutes The high probability of a clinically significant, sudden or life threatening deterioration of the [ID,,cardio ,renal] system(s) required my full and direct attention, intervention and personal management. The aggregate critical care time was [31 ] minutes. This time is in addition to time spent performing reported procedures but includes the following: [x] Data Review and interpretation [x] Patient assessment and monitoring of vital signs [x] Documentation, counseling [x] Medication orders and management History Interval history: Patient seen and examined in the ER awaiting ICU bed assignment Patient feels generalized weakness, denies chest pain or shortness of breath Admitted with severe sepsis and septic shock on Levophed Hospitalist Physical - Constitutional Vitals: Temp Pulse Resp BP Pulse Ox 97.6 F 63 15 101/49 100 06/16/17 00:52 06/16/17 07:52 06/16/17 07:45 06/16/17 07:45 06/16/17 07:45 General appearance: Present: no acute distress, well-nourished, obese - EENT Eyes: Present: PERRL, EOM intact - Neck Neck: Present: supple, normal ROM - Respiratory Respiratory effort: normal Respiratory: bilateral: diminished, negative: rales, rhonchi, wheezing - Cardiovascular Rhythm: regular Heart Sounds: Present: S1 & S2 - Extremities Extremities: no ischemia, No edema - Abdominal General gastrointestinal: soft, non-tender, non-distended, normal bowel sounds - Integumentary Integumentary: Present: clear, warm - Psychiatric Psychiatric: appropriate mood/affect, cooperative - Neurologic Neurologic: CNII-XII intact, moves all extremities Results - Labs CBC & Chem 7: 06/15/17 19:00 06/15/17 19:00 Labs: Laboratory Last Values WBC 3.7 K/mm3 (4.5-11.0) L 06/15/17 19:00 RBC 3.25 M/mm3 (3.65-5.03) L 06/15/17 19:00 Hgb 10.2 gm/dl (10.1-14.3) 06/15/17 19:00 Hct 31.5 % (30.3-42.9) 06/15/17 19:00 MCV 97 fl (79-97) 06/15/17 19:00 MCH 32 pg (28-32) 06/15/17 19:00 MCHC 33 % (30-34) 06/15/17 19:00 RDW 15.8 % (13.2-15.2) H 06/15/17 19:00 Plt Count 205 K/mm3 (140-440) 06/15/17 19:00 Lymph % (Auto) 23.1 % (13.4-35.0) 06/15/17 19:00 [place] % (Auto) 7.7 % (0.0-7.3) H 06/15/17 19:00 Eos % (Auto) 1.1 % (0.0-4.3) 06/15/17 19:00 Baso % (Auto) 0.7 % (0.0-1.8) 06/15/17 19:00 Lymph # 0.9 K/mm3 (1.2-5.4) L 06/15/17 19:00 [place] # 0.3 K/mm3 (0.0-0.8) 06/15/17 19:00 Eos # 0.0 K/mm3 (0.0-0.4) 06/15/17 19:00 Baso # 0.0 K/mm3 (0.0-0.1) 06/15/17 19:00 Seg Neutrophils % 67.4 % (40.0-70.0) 06/15/17 19:00 Seg Neutrophils # 2.5 K/mm3 (1.8-7.7) 06/15/17 19:00 PT 16.9 Sec. (12.2-14.9) H 06/15/17 20:21 INR 1.31 (0.87-1.13) H 06/15/17 20:21 APTT 35.3 Sec. (24.2-36.6) 06/15/17 20:21 D-Dimer 985.05 ng/mlDDU (0-234) H 06/15/17 20:21 VBG pH 7.261 (7.320-7.420) L 06/15/17 19:00 Sodium 139 mmol/L (137-145) 06/15/17 19:00 Potassium 3.9 mmol/L (3.6-5.0) 06/15/17 19:00 Chloride 96.3 mmol/L (98-107) L 06/15/17 19:00 Carbon Dioxide 29 mmol/L (22-30) 06/15/17 19:00 Anion Gap 18 mmol/L 06/15/17 19:00 BUN 32 mg/dL (7-17) H 06/15/17 19:00 Creatinine 3.5 mg/dL (0.7-1.2) H 06/15/17 19:00 Estimated GFR 15 ml/min 06/15/17 19:00 BUN/Creatinine Ratio 9 % 06/15/17 19:00 Glucose 428 mg/dL (65-100) H 06/15/17 19:00 POC Glucose 384 (70-105) H 06/15/17 20:00 Calcium 8.5 mg/dL (8.4-10.2) 06/15/17 19:00 Total Creatine Kinase 132 units/L (30-135) 06/16/17 05:16 CK-MB (CK-2) 1.9 ng/mL (0.0-4.0) 06/16/17 05:16 CK-MB (CK-2) Rel Index 1.4 (0-4) 06/16/17 05:16 Troponin T < 0.010 ng/mL (0.00-0.029) 06/16/17 05:16 NT-Pro-B Natriuret Pep 7290 pg/mL (0-900) H 06/15/17 20:21 Urine Color [place] (Yellow) 06/15/17 Unknown Urine Turbidity Clear (Clear) 06/15/17 Unknown Urine pH 5.0 (5.0-7.0) 06/15/17 Unknown Ur Specific [place] 1.026 (1.003-1.030) 06/15/17 Unknown Urine Protein 30 mg/dl mg/dL (Negative) 06/15/17 Unknown Urine Glucose (UA) 50 mg/dL (Negative) 06/15/17 Unknown Urine Ketones Neg mg/dL (Negative) 06/15/17 Unknown Urine Blood Mod (Negative) 06/15/17 Unknown Urine Nitrite Neg (Negative) 06/15/17 Unknown Urine Bilirubin Sm (Negative) 06/15/17 Unknown Urine Ictotest Negative (Negative) 06/15/17 Unknown Urine Urobilinogen 4.0 mg/dL (<2.0) 06/15/17 Unknown Ur Leukocyte Esterase Mod (Negative) 06/15/17 Unknown Urine WBC (Auto) 72.0 /HPF (0.0-6.0) H 06/15/17 Unknown Urine RBC (Auto) 10.0 /HPF (0.0-6.0) 06/15/17 Unknown U Epithel Cells (Auto) 10.0 /HPF (0-13.0) 06/15/17 Unknown Urine Bacteria (Auto) 1+ /HPF (Negative) 06/15/17 Unknown Urine WBC Clumps 3+ /HPF 06/15/17 Unknown Hyaline Casts 11 /LPF 06/15/17 Unknown Urine Mucus 1+ /HPF 06/15/17 Unknown
[2017-06-16 11:02] LABS: Creatine Kinase 124 units/L (30-135); Creatine Kinase MB 1.9 ng/mL (0.0-4.0)
[2017-06-16] MEDS: PROTONIX PO SCH (12:10)
[2017-06-16] MEDS: NEURONTIN PO SCH (12:10)
[2017-06-16] MEDS: LOVENOX SUB-Q SCH (12:10)
[2017-06-16] MEDS: TIMOLOL MALEAT OP SCH (12:20)
[2017-06-16] MEDS: DORZOLAMIDE HCL OP SCH (12:20)
--- NOTE | 2017-06-16 15:23 | Consultation ---
History of Present Illness - Reason for Consult Consult date: 06/16/17 end stage renal disease Requesting physician: IRMA WHALEY - History of Present Illness This is a 76 yo F with PMHx of hypertension, diabetes complicated by neuropathy , peripheral vascular, history of nephrectomy, ESRD on HD on MWF schedule at [facility], who presents to the emergency room with complaints of generalized weakness, urinary frequency, nausea, vomiting. Patient was hypotensive in the emergency room with systolic blood pressure of 70s mmHg with UA showing evidence of UTI. Pt was started on vasopressor support with levophed for septic shock, renal consult is requested for management of ESRD/HD. Past History Past Medical History: anemia, diabetes, ESRD, hypertension Past Surgical History: appendectomy, Other (nephrectomy, back surgery) Social history: , lives with family Family history: diabetes, hypertension Medications and Allergies Allergies Allergy/AdvReac Type Severity Reaction Status Date / Time methadone AdvReac Vomiting Verified 04/06/15 11:54 tramadol AdvReac Vomiting Verified 04/06/15 11:54 unknown Allergy Unknown Uncoded 04/06/15 11:54 Home Medications Medication Instructions Recorded Confirmed Last Taken Type Carvedilol [Coreg] 25 mg PO BID 01/19/15 06/16/17 06/20/16 History Gabapentin 300 mg PO BID 01/19/15 06/16/17 06/20/16 History Insulin NPH Hum/Reg Insulin Hm 35 unit SQ QAM 01/19/15 06/16/17 06/20/16 History [HumuLIN 70-30 Vial] Pantoprazole Sodium [Protonix] 40 mg PO QDAY 01/19/15 06/16/17 06/20/16 History amLODIPine [Norvasc] 10 mg PO DAILY 01/19/15 06/16/17 06/20/16 History Dorzolamide HCl/Timolol Maleat 10 ml OP QDAY 09/19/16 06/16/17 Unknown History [Dorzolamide-Timolol Eye Drops] Lisinopril/Hydrochlorothiazide 1 tab PO QDAY 06/16/17 06/16/17 Unknown History [Zestoretic 20-25 mg] Pravastatin Sodium [Pravachol] 40 mg PO HS 06/16/17 06/16/17 Unknown History oxyCODONE /ACETAMINOPHEN [Percocet 5 mg PO PRN PRN 06/16/17 06/16/17 Unknown History 5/325 mg] Active Meds: Active Medications Acetaminophen (Tylenol) 650 mg PO Q4H PRN PRN Reason: Pain MILD(1-3)/Fever >100.5/ALVARADO Bisacodyl (Dulcolax) 10 mg [place] QDAY PRN PRN Reason: Constipation unrelieved by MOM Enoxaparin Sodium (Lovenox) 30 mg SUB-Q QDAY [facility] Last Admin: 06/16/17 12:10 Dose: 30 mg Gabapentin (Neurontin) 300 mg PO BID [facility] Last Admin: 06/16/17 12:10 Dose: 300 mg Norepinephrine (Levophed Drip 4 Mg/Ns 250 Ml) 4 mg in 250 mls @ 7.5 mls/hr IV TITR MUNA; 2 MCG/MIN PRN Reason: Protocol Last Titration: 06/16/17 09:11 Dose: Infused Piperacillin Sod/Tazobactam Sod (Zosyn/Ns 2.25 Gm/50ml) 2.25 gm in 50 mls @ 100 mls/hr IV Q6HR [facility] Last Admin: 06/16/17 14:51 Dose: 100 mls/hr Insulin Aspart (Novolog) 0 units SUB-Q ACHS [facility] PRN Reason: Protocol Insulin Human Isoph/Insulin Regular (Novolin 70/30) 35 unit SUB-Q QAMDIAB [facility] Last Admin: 06/16/17 10:12 Dose: 35 unit Insulin Human Isoph/Insulin Regular (Novolin 70/30) 25 unit SUB-Q QPMDIAB [facility] Miscellaneous Medication (Dorzolamide Hcl/Timolol Maleat [Dorzolamide-Timolol Eye Drops]) 10 ml OP QDAY [facility] Last Admin: 06/16/17 12:20 Dose: Not Given Ondansetron HCl (Zofran) 4 mg IV Q8H PRN PRN Reason: N/V unrelieved by Reglan Pantoprazole Sodium (Protonix) 40 mg PO QDAY [facility] Last Admin: 06/16/17 12:10 Dose: 40 mg Review of Systems All systems: negative Constitutional: fatigue, weakness Gastrointestinal: abdominal pain, nausea Genitourinary Female: dysuria Exam - Vital Signs Vital signs: Vital Signs Temp Pulse Resp BP Pulse Ox 97.4 F L 56 L 18 93/52 97 06/15/17 17:22 06/15/17 17:22 06/15/17 17:22 06/15/17 17:22 06/15/17 17:22 - General Appearance General appearance: well-developed, well-nourished, appears stated age EENT: ATNC, PERRL, mucous membranes moist Neck: Present: neck supple Respiratory: Clear to Ascultation Heart: regular, S1S2 Gastrointestinal: Present: normoactive bowel sounds Integumentary: no rash, other (no edema ) Neurologic: no focal deficit, alert and oriented x3, CN 3-12 intact Psychiatric: mood/affect appropriate, cooperative Results - Lab Results 06/15/17 19:00 06/15/17 19:00 Most recent lab results Calcium 8.5 mg/dL (8.4-10.2) 06/15/17 19:00 Laboratory Tests 06/15/17 06/15/17 06/15/17 20:21 20:21 20:21 PT 16.9 H INR 1.31 H APTT 35.3 D-Dimer 985.05 H Total Creatine Kinase 147 H CK-MB (CK-2) 1.8 CK-MB (CK-2) Rel Index 1.2 Troponin T < 0.010 NT-Pro-B Natriuret Pep 7290 H Urine Color Urine Turbidity Urine pH Ur Specific [place] Urine Protein Urine Glucose (UA) Urine Ketones Urine Blood Urine Nitrite Urine Ictotest Urine Urobilinogen Ur Leukocyte Esterase Urine WBC (Auto) Urine RBC (Auto) U Epithel Cells (Auto) Urine Bacteria (Auto) Urine WBC Clumps Hyaline Casts Urine Mucus 06/15/17 06/16/17 06/16/17 Unknown 05:16 10:25 PT INR APTT D-Dimer Total Creatine Kinase 132 124 CK-MB (CK-2) 1.9 1.9 CK-MB (CK-2) Rel Index 1.4 1.5 Troponin T < 0.010 < 0.010 NT-Pro-B Natriuret Pep Urine Color [place] Urine Turbidity Clear Urine pH 5.0 Ur Specific [place] 1.026 Urine Protein 30 mg/dl Urine Glucose (UA) 50 Urine Ketones Neg Urine Blood Mod Urine Nitrite Neg Urine Ictotest Negative Urine Urobilinogen 4.0 Ur Leukocyte Esterase Mod Urine WBC (Auto) 72.0 H Urine RBC (Auto) 10.0 U Epithel Cells (Auto) 10.0 Urine Bacteria (Auto) 1+ Urine WBC Clumps 3+ Hyaline Casts 11 Urine Mucus 1+ Assessment and Plan - Patient Problems (1) Septic shock Current Visit: No Status: Acute Plan to address problem: cont empiric ABXs, vasopressor support to keep MAP > 65mmHg. (2) Acute UTI Current Visit: Yes Status: Acute Plan to address problem: cont ABXs, dose renally adjusted (3) ESRD (end stage renal disease) Current Visit: No Status: Acute Plan to address problem: Will arrange HD in AM, to cont MWF schedule (4) Anemia in chronic kidney disease Current Visit: No Status: Acute Plan to address problem: Hb at target, no need for EPO at present
[2017-06-16] MEDS: NOVOLOG SUB-Q SCH (18:30)
[2017-06-17] MEDS ORDERED: D50W (25GM) Vial 50 ML IV ONE ×3 (00:16→23:35)
[2017-06-17] MEDS: NOVOLOG SUB-Q SCH ×3 (00:23→11:24)
[2017-06-17] MEDS: NEURONTIN PO SCH ×3 (00:23→23:09)
[2017-06-17] MEDS ORDERED: NACL 0.9% 500 ML 500 ML IV ONE (01:19)
[2017-06-17] MEDS ORDERED: NACL 0.9% 500 ML 500 ML ONE (01:22)
[2017-06-17] MEDS: ZOSYN/NS 2.25 GM/50ML 2.25 GM/50 ML BAG IV SCH ×3 (02:01→12:10)
[2017-06-17] MEDS: LEVOPHED DRIP 4 MG/NS 250 ML 4 MG/250 ML BAG IV SCH ×6 (02:34→23:09)
[2017-06-17 03:52] LABS: Basophils % (Auto) 0.6 % (0.0-1.8); Eosinophils % (Auto) 2.4 % (0.0-4.3); Hematocrit 31.4 % (30.3-42.9); Hemoglobin 10.4 gm/dl (10.1-14.3); Mean Corpuscular HGB Conc 33 % (30-34); Mean Corpuscular Hemoglobin 32 pg (28-32); Mean Corpuscular Volume 95 fl (79-97); Platelet Count 222 K/mm3 (140-440); Red Blood Count 3.31 M/mm3 (3.65-5.03); White Blood Count 7.4 K/mm3 (4.5-11.0)
[2017-06-17 03:58] LABS: Calcium 8.1 mg/dL (8.4-10.2); Chloride 99.1 mmol/L (98-107); Potassium 4.3 mmol/L (3.6-5.0)
[2017-06-17] MEDS: ZOFRAN IV PRN (06:47)
--- NOTE | 2017-06-17 07:39 | Progress Note ---
Assessment and Plan Assessment and plan: --Septic shock; on Levophed, IV fluids, titrate systolic blood pressure to more than 100, map more than 65 --Sepsis secondary to urinary tract infection; continue empiric antibiotics, follow cultures, ID if needed --End-stage renal disease on hemodialysis; dialysis per schedule, nephrology consulted --Type 2 diabetes mellitus; uncontrolled , slight insulin was not given by the nurse for unknown reason Accu-Chek sliding scale coverage and ADA diet and insulin, A1c 11.5, possible home health nurse at discharge --CHF on CT scan; probably diastolic dysfunction ,echocardiogram for left ventricle function ejection fraction, cannot use diuretics in view of hypotension --DVT prophylaxis; with heparin --Full CODE STATUS Closely monitor the patient and adjust the management as needed Plan of care discussed with the patient and her nurse Critical care time 31 minutes The high probability of a clinically significant, sudden or life threatening deterioration of the [ID,,cardio ,renal] system(s) required my full and direct attention, intervention and personal management. The aggregate critical care time was [31 ] minutes. This time is in addition to time spent performing reported procedures but includes the following: [x] Data Review and interpretation [x] Patient assessment and monitoring of vital signs [x] Documentation, counseling [x] Medication orders and management History Interval history: Patient seen and evaluated Feels better, remains on Levophed No new complaints Hospitalist Physical - Constitutional Vitals: Temp Pulse Resp BP Pulse Ox 97.6 F 59 L 16 91/59 96 06/16/17 00:52 06/17/17 07:13 06/17/17 07:13 06/17/17 07:13 06/17/17 07:13 General appearance: Present: no acute distress, well-nourished, obese - EENT Eyes: Present: PERRL, EOM intact - Neck Neck: Present: supple, normal ROM - Respiratory Respiratory effort: normal Respiratory: bilateral: diminished, negative: rales, rhonchi, wheezing - Cardiovascular Rhythm: regular Heart Sounds: Present: S1 & S2 - Extremities Extremities: no ischemia, No edema - Abdominal General gastrointestinal: soft, non-tender, non-distended, normal bowel sounds - Integumentary Integumentary: Present: clear, warm - Psychiatric Psychiatric: appropriate mood/affect, cooperative - Neurologic Neurologic: CNII-XII intact, moves all extremities Results - Labs CBC & Chem 7: 06/18/17 05:00 06/18/17 05:00 Labs: Laboratory Last Values WBC 7.4 K/mm3 (4.5-11.0) 06/17/17 03:19 RBC 3.31 M/mm3 (3.65-5.03) L 06/17/17 03:19 Hgb 10.4 gm/dl (10.1-14.3) 06/17/17 03:19 Hct 31.4 % (30.3-42.9) 06/17/17 03:19 MCV 95 fl (79-97) 06/17/17 03:19 MCH 32 pg (28-32) 06/17/17 03:19 MCHC 33 % (30-34) 06/17/17 03:19 RDW 16.0 % (13.2-15.2) H 06/17/17 03:19 Plt Count 222 K/mm3 (140-440) 06/17/17 03:19 Lymph % (Auto) 14.7 % (13.4-35.0) 06/17/17 03:19 [place] % (Auto) 6.3 % (0.0-7.3) 06/17/17 03:19 Eos % (Auto) 2.4 % (0.0-4.3) 06/17/17 03:19 Baso % (Auto) 0.6 % (0.0-1.8) 06/17/17 03:19 Lymph # 1.1 K/mm3 (1.2-5.4) L 06/17/17 03:19 [place] # 0.5 K/mm3 (0.0-0.8) 06/17/17 03:19 Eos # 0.2 K/mm3 (0.0-0.4) 06/17/17 03:19 Baso # 0.0 K/mm3 (0.0-0.1) 06/17/17 03:19 Seg Neutrophils % 76.0 % (40.0-70.0) H 06/17/17 03:19 Seg Neutrophils # 5.6 K/mm3 (1.8-7.7) 06/17/17 03:19 PT 16.9 Sec. (12.2-14.9) H 06/15/17 20:21 INR 1.31 (0.87-1.13) H 06/15/17 20:21 APTT 35.3 Sec. (24.2-36.6) 06/15/17 20:21 D-Dimer 985.05 ng/mlDDU (0-234) H 06/15/17 20:21 VBG pH 7.261 (7.320-7.420) L 06/15/17 19:00 Sodium 138 mmol/L (137-145) 06/17/17 03:19 Potassium 4.3 mmol/L (3.6-5.0) 06/17/17 03:19 Chloride 99.1 mmol/L (98-107) 06/17/17 03:19 Carbon Dioxide 22 mmol/L (22-30) D 06/17/17 03:19 Anion Gap 21 mmol/L 06/17/17 03:19 BUN 45 mg/dL (7-17) H 06/17/17 03:19 Creatinine 4.5 mg/dL (0.7-1.2) H 06/17/17 03:19 Estimated GFR 12 ml/min 06/17/17 03:19 BUN/Creatinine Ratio 10 % 06/17/17 03:19 Glucose 192 mg/dL (65-100) H 06/17/17 03:19 POC Glucose 326 (70-105) H 06/17/17 06:44 Hemoglobin A1c 11.5 % (4-6) H 06/17/17 03:19 Calcium 8.1 mg/dL (8.4-10.2) L 06/17/17 03:19 Total Creatine Kinase 124 units/L (30-135) 06/16/17 10:25 CK-MB (CK-2) 1.9 ng/mL (0.0-4.0) 06/16/17 10:25 CK-MB (CK-2) Rel Index 1.5 (0-4) 06/16/17 10:25 Troponin T < 0.010 ng/mL (0.00-0.029) 06/16/17 10:25 NT-Pro-B Natriuret Pep 7290 pg/mL (0-900) H 06/15/17 20:21 Urine Color [place] (Yellow) 06/15/17 Unknown Urine Turbidity Clear (Clear) 06/15/17 Unknown Urine pH 5.0 (5.0-7.0) 06/15/17 Unknown Ur Specific [place] 1.026 (1.003-1.030) 06/15/17 Unknown Urine Protein 30 mg/dl mg/dL (Negative) 06/15/17 Unknown Urine Glucose (UA) 50 mg/dL (Negative) 06/15/17 Unknown Urine Ketones Neg mg/dL (Negative) 06/15/17 Unknown Urine Blood Mod (Negative) 06/15/17 Unknown Urine Nitrite Neg (Negative) 06/15/17 Unknown Urine Bilirubin Sm (Negative) 06/15/17 Unknown Urine Ictotest Negative (Negative) 06/15/17 Unknown Urine Urobilinogen 4.0 mg/dL (<2.0) 06/15/17 Unknown Ur Leukocyte Esterase Mod (Negative) 06/15/17 Unknown Urine WBC (Auto) 72.0 /HPF (0.0-6.0) H 06/15/17 Unknown Urine RBC (Auto) 10.0 /HPF (0.0-6.0) 06/15/17 Unknown U Epithel Cells (Auto) 10.0 /HPF (0-13.0) 06/15/17 Unknown Urine Bacteria (Auto) 1+ /HPF (Negative) 06/15/17 Unknown Urine WBC Clumps 3+ /HPF 06/15/17 Unknown Hyaline Casts 11 /LPF 06/15/17 Unknown Urine Mucus 1+ /HPF 06/15/17 Unknown
[2017-06-17] MEDS: LOVENOX SUB-Q SCH (11:24)
[2017-06-17] MEDS: TIMOLOL MALEAT OP SCH (11:28)
[2017-06-17] MEDS: DORZOLAMIDE HCL OP SCH (11:28)
[2017-06-17] MEDS ORDERED: NACL 0.9% 100 ML IV PRN (12:00)
--- NOTE | 2017-06-17 14:33 | Progress Note ---
Assessment and Plan - Patient Problems (1) Septic shock Current Visit: No Status: Acute Plan to address problem: cont empiric ABXs, vasopressor support to keep MAP > 65mmHg. (2) Acute UTI Current Visit: Yes Status: Acute Plan to address problem: cont ABXs, dose renally adjusted (3) ESRD (end stage renal disease) Current Visit: No Status: Acute Plan to address problem: cont HD on MWF schedule (4) Anemia in chronic kidney disease Current Visit: No Status: Acute Plan to address problem: Hb at target, no need for EPO at present Subjective Date of service: 06/17/17 Principal diagnosis: sepsis, ESRD Interval history: Pt awake, alert, remains on vasopressor support with levo Objective - Vital Signs Vital signs: Vital Signs - 12hr 06/17/17 06/17/17 06/17/17 05:25 05:28 05:30 Temperature Pulse Rate 55 L 54 L 50 L Respiratory 13 13 13 Rate Blood Pressure 114/48 112/43 Blood Pressure [Left] O2 Sat by Pulse 96 96 95 Oximetry 06/17/17 06/17/17 06/17/17 05:35 05:41 05:45 Temperature Pulse Rate 54 L 52 L 53 L Respiratory 13 14 13 Rate Blood Pressure 112/43 112/43 123/59 Blood Pressure [Left] O2 Sat by Pulse 96 97 Oximetry 06/17/17 06/17/17 06/17/17 05:51 05:55 06:01 Temperature Pulse Rate 56 L 66 61 Respiratory 14 14 17 Rate Blood Pressure 123/59 123/59 133/52 Blood Pressure [Left] O2 Sat by Pulse 96 97 95 Oximetry 06/17/17 06/17/17 06/17/17 06:05 06:07 06:09 Temperature Pulse Rate 68 54 L 59 L Respiratory 14 16 16 Rate Blood Pressure 133/52 133/52 133/52 Blood Pressure [Left] O2 Sat by Pulse 95 96 97 Oximetry 06/17/17 06/17/17 06/17/17 06:11 06:13 06:15 Temperature Pulse Rate 59 L 61 60 Respiratory 14 14 17 Rate Blood Pressure 133/52 133/52 118/45 Blood Pressure [Left] O2 Sat by Pulse 99 98 98 Oximetry 06/17/17 06/17/17 06/17/17 06:16 06:19 06:21 Temperature Pulse Rate 56 L 59 L 55 L Respiratory 15 15 16 Rate Blood Pressure 118/45 118/45 118/45 Blood Pressure [Left] O2 Sat by Pulse 98 97 97 Oximetry 06/17/17 06/17/17 06/17/17 06:23 06:25 06:27 Temperature Pulse Rate 55 L 58 L 65 Respiratory 14 16 16 Rate Blood Pressure 118/45 118/45 118/45 Blood Pressure [Left] O2 Sat by Pulse 98 96 96 Oximetry 06/17/17 06/17/17 06/17/17 06:29 06:31 06:33 Temperature Pulse Rate 57 L 57 L 70 Respiratory 15 17 18 Rate Blood Pressure 118/45 111/45 111/45 Blood Pressure [Left] O2 Sat by Pulse 98 97 97 Oximetry 06/17/17 06/17/17 06/17/17 06:35 06:37 06:39 Temperature Pulse Rate 69 67 66 Respiratory 16 13 13 Rate Blood Pressure 111/45 111/45 111/45 Blood Pressure [Left] O2 Sat by Pulse 96 97 98 Oximetry 06/17/17 06/17/17 06/17/17 06:41 06:43 06:45 Temperature Pulse Rate 59 L 70 61 Respiratory 11 L 13 17 Rate Blood Pressure 111/45 111/45 111/45 Blood Pressure [Left] O2 Sat by Pulse 98 95 94 Oximetry 06/17/17 06/17/17 06/17/17 06:47 06:49 06:51 Temperature Pulse Rate 70 63 63 Respiratory 17 18 16 Rate Blood Pressure 111/45 111/45 194/142 Blood Pressure [Left] O2 Sat by Pulse 93 80 L Oximetry 06/17/17 06/17/17 06/17/17 06:53 07:00 07:13 Temperature Pulse Rate 68 64 59 L Respiratory 14 13 16 Rate Blood Pressure 107/23 103/49 Blood Pressure 91/59 [Left] O2 Sat by Pulse 98 96 96 Oximetry 06/17/17 06/17/17 06/17/17 07:15 07:30 07:45 Temperature Pulse Rate 63 57 L 60 Respiratory 17 12 14 Rate Blood Pressure 91/59 102/34 102/34 Blood Pressure [Left] O2 Sat by Pulse 97 98 99 Oximetry 06/17/17 06/17/17 06/17/17 08:00 08:15 08:30 Temperature Pulse Rate 63 57 L 54 L Respiratory 16 14 15 Rate Blood Pressure 101/38 101/38 103/35 Blood Pressure [Left] O2 Sat by Pulse 96 96 95 Oximetry 06/17/17 06/17/17 06/17/17 08:38 08:45 09:01 Temperature Pulse Rate 67 60 Respiratory 18 17 11 L Rate Blood Pressure 103/35 120/39 Blood Pressure [Left] O2 Sat by Pulse 86 92 92 Oximetry 06/17/17 06/17/17 06/17/17 09:15 09:31 09:45 Temperature Pulse Rate 63 56 L 56 L Respiratory 14 15 17 Rate Blood Pressure 120/39 96/36 96/36 Blood Pressure [Left] O2 Sat by Pulse 95 94 96 Oximetry 06/17/17 06/17/17 06/17/17 10:01 10:30 11:01 Temperature Pulse Rate 52 L 53 L 60 Respiratory 20 26 H 16 Rate Blood Pressure 84/37 106/49 83/61 Blood Pressure [Left] O2 Sat by Pulse 94 95 93 Oximetry 06/17/17 06/17/17 06/17/17 11:30 12:01 12:30 Temperature Pulse Rate 60 53 L 53 L Respiratory 14 14 14 Rate Blood Pressure 92/57 102/70 112/67 Blood Pressure [Left] O2 Sat by Pulse 95 95 96 Oximetry 06/17/17 06/17/17 13:00 14:00 Temperature 97.6 F Pulse Rate 56 L Respiratory 16 Rate Blood Pressure 100/52 Blood Pressure [Left] O2 Sat by Pulse 95 Oximetry - General Appearance General appearance: well-nourished, appears stated age, fatigue EENT: ATNC, PERRL, mucous membranes moist Neck: no JVD Respiratory: Present: Clear to Ascultation Cardiology: regular, S1S2 Gastrointestinal: normoactive bowel sounds Integumentary: no rash, other (no edema ) Neurologic: no focal deficit, alert and oriented x3, strength 5/5, CN 3-12 intact Psychiatric: mood/affect appropriate, cooperative - Lab 06/17/17 03:19 06/17/17 03:19 Most recent lab results Calcium 8.1 mg/dL (8.4-10.2) L 06/17/17 03:19
--- NOTE | 2017-06-17 15:04 | Consultation ---
History of Present Illness Consult date: 06/17/17 Requesting physician: ABHILASH WRIGHT Reason for consult: other (sepsis, uti) History of present illness: 76 yo with ESRD presents with generalized weakness, N/V, hypotension requiring CVL and Levophed. She is sleepy, arouses, but mumbles to questions, seemingly confused. On 2L NC. Denies SOB, chest pain, cough. Active Medications Acetaminophen (Tylenol) 650 mg PO Q4H PRN PRN Reason: Pain MILD(1-3)/Fever >100.5/ALVARADO Bisacodyl (Dulcolax) 10 mg HI QDAY PRN PRN Reason: Constipation unrelieved by MOM Enoxaparin Sodium (Lovenox) 30 mg SUB-Q QDAY [facility] Last Admin: 06/17/17 11:24 Dose: 30 mg Gabapentin (Neurontin) 300 mg PO BID [facility] Last Admin: 06/17/17 11:24 Dose: 300 mg Norepinephrine (Levophed Drip 4 Mg/Ns 250 Ml) 4 mg in 250 mls @ 7.5 mls/hr IV TITR MUNA; 2 MCG/MIN PRN Reason: Protocol Last Titration: 06/17/17 07:55 Dose: 27 mcg/min, 101.25 mls/hr Piperacillin Sod/Tazobactam Sod (Zosyn/Ns 2.25 Gm/50ml) 2.25 gm in 50 mls @ 100 mls/hr IV Q6HR [facility] Last Admin: 06/17/17 12:10 Dose: 100 mls/hr Sodium Chloride (Nacl 0.9%) 100 mls @ 999 mls/hr IV RAJENDRA PRN PRN Reason: Hypotension Insulin Aspart (Novolog) 0 units SUB-Q ACHS [facility] PRN Reason: Protocol Last Admin: 06/17/17 11:24 Dose: 8 units Insulin Human Isoph/Insulin Regular (Novolin 70/30) 35 unit SUB-Q QAMDIAB [facility] Last Admin: 06/17/17 08:12 Dose: 35 unit Insulin Human Isoph/Insulin Regular (Novolin 70/30) 25 unit SUB-Q QPMDIAB [facility] Last Admin: 06/16/17 18:30 Dose: Not Given Miscellaneous Medication (Dorzolamide Hcl/Timolol Maleat [Dorzolamide-Timolol Eye Drops]) 10 ml OP QDAY [facility] Last Admin: 06/17/17 11:28 Dose: Not Given Ondansetron HCl (Zofran) 4 mg IV Q8H PRN PRN Reason: N/V unrelieved by Stan Last Admin: 06/17/17 06:47 Dose: 4 mg Pantoprazole Sodium (Protonix) 40 mg PO QDAY [facility] Last Admin: 06/16/17 12:10 Dose: 40 mg Past History Past Medical History: anemia, diabetes, ESRD, hypertension Past Surgical History: appendectomy, Other (nephrectomy, back surgery) Social history: , lives with family. denies: smoking, alcohol abuse, prescription drug abuse Family history: diabetes, hypertension Medications and Allergies Allergies Allergy/AdvReac Type Severity Reaction Status Date / Time methadone AdvReac Vomiting Verified 04/06/15 11:54 tramadol AdvReac Vomiting Verified 04/06/15 11:54 unknown Allergy Unknown Uncoded 04/06/15 11:54 Home Medications Medication Instructions Recorded Confirmed Last Taken Type Carvedilol [Coreg] 25 mg PO BID 01/19/15 06/16/17 06/20/16 History Gabapentin 300 mg PO BID 01/19/15 06/16/17 06/20/16 History Insulin NPH Hum/Reg Insulin Hm 35 unit SQ QAM 01/19/15 06/16/17 06/20/16 History [HumuLIN 70-30 Vial] Pantoprazole Sodium [Protonix] 40 mg PO QDAY 01/19/15 06/16/17 06/20/16 History amLODIPine [Norvasc] 10 mg PO DAILY 01/19/15 06/16/17 06/20/16 History Dorzolamide HCl/Timolol Maleat 10 ml OP QDAY 09/19/16 06/16/17 Unknown History [Dorzolamide-Timolol Eye Drops] Lisinopril/Hydrochlorothiazide 1 tab PO QDAY 06/16/17 06/16/17 Unknown History [Zestoretic 20-25 mg] Pravastatin Sodium [Pravachol] 40 mg PO HS 06/16/17 06/16/17 Unknown History oxyCODONE /ACETAMINOPHEN [Percocet 5 mg PO PRN PRN 06/16/17 06/16/17 Unknown History 5/325 mg] Active Meds: Active Medications Acetaminophen (Tylenol) 650 mg PO Q4H PRN PRN Reason: Pain MILD(1-3)/Fever >100.5/ALVARADO Bisacodyl (Dulcolax) 10 mg HI QDAY PRN PRN Reason: Constipation unrelieved by MOM Enoxaparin Sodium (Lovenox) 30 mg SUB-Q QDAY [facility] Last Admin: 06/17/17 11:24 Dose: 30 mg Gabapentin (Neurontin) 300 mg PO BID [facility] Last Admin: 06/17/17 11:24 Dose: 300 mg Norepinephrine (Levophed Drip 4 Mg/Ns 250 Ml) 4 mg in 250 mls @ 7.5 mls/hr IV TITR MUNA; 2 MCG/MIN PRN Reason: Protocol Last Titration: 06/17/17 07:55 Dose: 27 mcg/min, 101.25 mls/hr Piperacillin Sod/Tazobactam Sod (Zosyn/Ns 2.25 Gm/50ml) 2.25 gm in 50 mls @ 100 mls/hr IV Q6HR [facility] Last Admin: 06/17/17 12:10 Dose: 100 mls/hr Sodium Chloride (Nacl 0.9%) 100 mls @ 999 mls/hr IV RAJENDRA PRN PRN Reason: Hypotension Insulin Aspart (Novolog) 0 units SUB-Q ACHS [facility] PRN Reason: Protocol Last Admin: 06/17/17 11:24 Dose: 8 units Insulin Human Isoph/Insulin Regular (Novolin 70/30) 35 unit SUB-Q QAMDIAB [facility] Last Admin: 06/17/17 08:12 Dose: 35 unit Insulin Human Isoph/Insulin Regular (Novolin 70/30) 25 unit SUB-Q QPMDIAB [facility] Last Admin: 06/16/17 18:30 Dose: Not Given Miscellaneous Medication (Dorzolamide Hcl/Timolol Maleat [Dorzolamide-Timolol Eye Drops]) 10 ml OP QDAY [facility] Last Admin: 06/17/17 11:28 Dose: Not Given Ondansetron HCl (Zofran) 4 mg IV Q8H PRN PRN Reason: N/V unrelieved by Reglan Last Admin: 06/17/17 06:47 Dose: 4 mg Pantoprazole Sodium (Protonix) 40 mg PO QDAY [facility] Last Admin: 06/16/17 12:10 Dose: 40 mg Review of Systems All systems: negative Physical Examination Vital signs: Vital Signs Temp Pulse Resp BP Pulse Ox 97.4 F L 56 L 18 93/52 97 06/15/17 17:22 06/15/17 17:22 06/15/17 17:22 06/15/17 17:22 06/15/17 17:22 General appearance: alert, other (critically ill on pressors) Eyes: non-icteric ENT: oropharynx moist Neck: supple Effort: normal Ascultation: Bilateral: clear Cardiovascular: other (bradycardia, RR; no mrg) Gastrointestinal: normoactive bowel sounds, soft, non-tender, non-distended Integumentary: normal Extremities: no cyanosis, no edema, pink and warm Musculoskeletal: no deformities non-focal exam, pupils equal and round, CN II-XII normal, other (mildly confused ) mood appropriate, affect normal Results - Laboratory Findings CBC and BMP: 06/17/17 03:19 06/17/17 03:19 PT/INR, D-dimer PT 16.9 Sec. (12.2-14.9) H 06/15/17 20:21 INR 1.31 (0.87-1.13) H 06/15/17 20:21 D-Dimer 985.05 ng/mlDDU (0-234) H 06/15/17 20:21 Abnormal lab findings: Abnormal Labs 06/15/17 06/15/17 06/15/17 17:52 19:00 19:00 WBC 3.7 L RBC 3.25 L RDW 15.8 H [place] % (Auto) 7.7 H Lymph # 0.9 L Seg Neutrophils % PT INR D-Dimer VBG pH Chlor[place] 96.3 L BUN 32 H Creatinine 3.5 H Glucose 428 H POC Glucose > 500 H Hemoglobin A1c Calcium Total Creatine Kinase NT-Pro-B Natriuret Pep Urine WBC (Auto) 06/15/17 06/15/17 06/15/17 19:00 19:35 20:00 WBC RBC RDW [place] % (Auto) Lymph # Seg Neutrophils % PT INR D-Dimer VBG pH 7.261 L Chloride BUN Creatinine Glucose POC Glucose 371 H 384 H Hemoglobin A1c Calcium Total Creatine Kinase NT-Pro-B Natriuret Pep Urine WBC (Auto) 06/15/17 06/15/17 06/15/17 20:21 20:21 20:21 WBC RBC RDW [place] % (Auto) Lymph # Seg Neutrophils % PT 16.9 H INR 1.31 H D-Dimer 985.05 H VBG pH Chloride BUN Creatinine Glucose POC Glucose Hemoglobin A1c Calcium Total Creatine Kinase 147 H NT-Pro-B Natriuret Pep 7290 H Urine WBC (Auto) 06/15/17 06/16/17 06/16/17 Unknown 10:13 13:23 WBC RBC RDW [place] % (Auto) Lymph # Seg Neutrophils % PT INR D-Dimer VBG pH Chloride BUN Creatinine Glucose POC Glucose 290 H 301 H Hemoglobin A1c Calcium Total Creatine Kinase NT-Pro-B Natriuret Pep Urine WBC (Auto) 72.0 H 06/16/17 06/17/17 06/17/17 17:36 00:16 00:35 WBC RBC RDW [place] % (Auto) Lymph # Seg Neutrophils % PT INR D-Dimer VBG pH Chloride BUN Creatinine Glucose POC Glucose 120 H < 40 L 188 H Hemoglobin A1c Calcium Total Creatine Kinase NT-Pro-B Natriuret Pep Urine WBC (Auto) 06/17/17 06/17/17 06/17/17 03:19 03:19 03:19 WBC RBC 3.31 L RDW 16.0 H [place] % (Auto) Lymph # 1.1 L Seg Neutrophils % 76.0 H PT INR D-Dimer VBG pH Chloride BUN 45 H Creatinine 4.5 H Glucose 192 H POC Glucose Hemoglobin A1c 11.5 H Calcium 8.1 L Total Creatine Kinase NT-Pro-B Natriuret Pep Urine WBC (Auto) 06/17/17 06/17/17 06/17/17 03:51 06:44 11:15 WBC RBC RDW [place] % (Auto) Lymph # Seg Neutrophils % PT INR D-Dimer VBG pH Chloride BUN Creatinine Glucose POC Glucose 184 H 326 H 380 H Hemoglobin A1c Calcium Total Creatine Kinase NT-Pro-B Natriuret Pep Urine WBC (Auto) - Diagnostic Findings CT scan - chest: report reviewed, image reviewed Assessment and Plan Imp: 1. UTI 2. Severe sepsis with septic shock 3. ESRD 4. Acute respiratory failure, hypoxia 5. Metabolic encephalopathy Rec: 1. Cont. Zosyn; check blood and urine cultures 2. Check lactate; wean pressors to keep MAP > 65 3. Check TSH 4. Echo 5. Do not suspect ILD or pneumonia per CT chest; may have mild volume overload, see #4 6. DVT PPx 7. Awaiting ICU bed No family present CCT 31 minutes
[2017-06-17] MEDS ORDERED: NACL 0.9% 1000 ML 2,000 ML ONE (19:56)
[2017-06-17] MEDS: HEPARIN IV PRN (21:43)
[2017-06-18] MEDS ORDERED: D50W (25GM) Vial IV ONE (00:19)
[2017-06-18 00:41] LABS: ISTAT Base Excess -1; ISTAT HCO3 24.8; ISTAT PCO2 48.8 (35-45); ISTAT PH 7.314 (7.35-7.45); ISTAT PO2 53 (80-105); ISTAT SO2 83; ISTAT TCO2 26
[2017-06-18] MEDS: ZOSYN/NS 2.25 GM/50ML 2.25 GM/50 ML BAG IV SCH ×3 (00:59→05:50)
[2017-06-18] MEDS: NOVOLOG SUB-Q SCH ×2 (01:02→11:30)
[2017-06-18 01:14] LABS: Calcium 8.2 mg/dL (8.4-10.2); Chloride 95.8 mmol/L (98-107); Potassium 4.2 mmol/L (3.6-5.0)
[2017-06-18 01:42] LABS: Bacteria,Urine 1+ /HPF (Negative); Bilirubin,Urine NEG (Negative); Blood,Urine SM (Negative); Ketones,Urine NEG (Negative); Leukocyte Esterase,Urine MOD (Negative); Mucus,Urine FEW /HPF; Nitrite,Urine NEG (Negative); Urobilinogen,Urine < 2.0 mg/dL (<2.0)
[2017-06-18] MEDS: LEVOPHED DRIP 4 MG/NS 250 ML 4 MG/250 ML BAG IV SCH ×2 (02:52→12:08)
[2017-06-18 05:33] LABS: Basophils % (Auto) 0.3 % (0.0-1.8); Eosinophils % (Auto) 1.4 % (0.0-4.3); Hemoglobin 10.3 gm/dl (10.1-14.3); Mean Corpuscular HGB Conc 33 % (30-34); Mean Corpuscular Hemoglobin 32 pg (28-32); Mean Corpuscular Volume 96 fl (79-97); Platelet Count 179 K/mm3 (140-440); Red Blood Count 3.22 M/mm3 (3.65-5.03); Red Cell Distribution Width 16.2 % (13.2-15.2); White Blood Count 6.7 K/mm3 (4.5-11.0)
[2017-06-18 05:54] LABS: Albumin 3.4 g/dL (3.9-5); Albumin/Globulin Ratio 1.1 %; Bilirubin,Direct 0.3 mg/dL (0-0.2); Bilirubin,Indirect 0.3 mg/dL; Bilirubin,Total 0.6 mg/dL (0.1-1.2); Calcium 7.9 mg/dL (8.4-10.2); Chloride 98.9 mmol/L (98-107); Magnesium 1.9 mg/dL (1.7-2.3); Total Protein 6.4 g/dL (6.3-8.2)
[2017-06-18 09:26] LABS: ISTAT Base Excess -1; ISTAT HCO3 23.9; ISTAT PCO2 41.5 (35-45); ISTAT PH 7.368 (7.35-7.45); ISTAT PO2 72 (80-105); ISTAT SO2 94; ISTAT TCO2 25
--- NOTE | 2017-06-18 09:39 | Progress Note ---
Assessment and Plan - Patient Problems (1) Septic shock Current Visit: No Status: Acute Plan to address problem: cont empiric ABXs, vasopressor support to keep MAP > 65mmHg. (2) Acute UTI Current Visit: Yes Status: Acute Plan to address problem: cont ABXs, dose renally adjusted (3) ESRD (end stage renal disease) Current Visit: No Status: Acute Plan to address problem: cont HD on MWF schedule, will adjust UF as tolerated given hemodynamic instability (4) Anemia in chronic kidney disease Current Visit: No Status: Acute Plan to address problem: Hb at target, no need for EPO at present Subjective Date of service: 06/18/17 Principal diagnosis: sepsis, ESRD Interval history: Pt awake, alert, remains on vasopressor support with levo at 8mcg/min Objective - Vital Signs Vital signs: Vital Signs - 12hr 06/17/17 06/17/17 06/17/17 21:45 22:00 22:01 Temperature Pulse Rate 69 61 73 Respiratory 17 13 Rate Blood Pressure 126/45 131/69 O2 Sat by Pulse 91 94 Oximetry 06/17/17 06/17/17 06/17/17 22:15 22:30 22:45 Temperature Pulse Rate 73 80 71 Respiratory 12 13 20 Rate Blood Pressure 131/69 112/44 112/44 O2 Sat by Pulse 87 88 91 Oximetry 06/17/17 06/17/17 06/17/17 23:01 23:15 23:31 Temperature Pulse Rate 74 70 70 Respiratory 19 19 18 Rate Blood Pressure 98/39 112/44 93/45 O2 Sat by Pulse 52 L 92 93 Oximetry 06/17/17 06/18/17 06/18/17 23:45 00:00 00:01 Temperature Pulse Rate 60 63 Respiratory 12 14 18 Rate Blood Pressure 93/45 131/54 O2 Sat by Pulse 93 99 94 Oximetry 06/18/17 06/18/17 06/18/17 00:15 00:31 00:45 Temperature Pulse Rate 63 65 62 Respiratory 9 L 13 13 Rate Blood Pressure 131/54 128/61 128/61 O2 Sat by Pulse 98 98 98 Oximetry 06/18/17 06/18/17 06/18/17 01:00 01:15 01:30 Temperature Pulse Rate 56 L 65 55 L Respiratory 13 11 L 13 Rate Blood Pressure 130/56 130/56 120/56 O2 Sat by Pulse 98 98 99 Oximetry 06/18/17 06/18/17 06/18/17 01:45 02:00 02:15 Temperature Pulse Rate 54 L 53 L 54 L Respiratory 12 14 12 Rate Blood Pressure 120/56 111/48 111/48 O2 Sat by Pulse 100 98 99 Oximetry 06/18/17 06/18/17 06/18/17 02:30 02:45 03:01 Temperature Pulse Rate 53 L 53 L 61 Respiratory 12 13 12 Rate Blood Pressure 112/45 112/45 104/63 O2 Sat by Pulse 96 98 99 Oximetry 06/18/17 06/18/17 06/18/17 03:15 03:31 03:45 Temperature Pulse Rate 58 L 63 Respiratory 13 14 Rate Blood Pressure 104/63 113/84 113/84 O2 Sat by Pulse 96 97 97 Oximetry 06/18/17 06/18/17 06/18/17 03:58 04:00 04:15 Temperature 96.2 F L Pulse Rate 58 L 64 Respiratory 13 17 Rate Blood Pressure 113/84 79/52 O2 Sat by Pulse 97 Oximetry 06/18/17 06/18/17 06/18/17 04:31 04:45 05:01 Temperature Pulse Rate 59 L 61 66 Respiratory 13 13 14 Rate Blood Pressure 107/51 107/51 120/54 O2 Sat by Pulse 98 96 94 Oximetry 06/18/17 06/18/17 06/18/17 05:15 05:31 05:45 Temperature Pulse Rate 71 69 63 Respiratory 15 17 14 Rate Blood Pressure 120/54 125/56 125/56 O2 Sat by Pulse 95 94 95 Oximetry 06/18/17 06/18/17 06/18/17 06:00 06:15 06:30 Temperature 97.3 F L Pulse Rate 65 65 65 Respiratory 15 14 15 Rate Blood Pressure 116/53 116/53 123/62 O2 Sat by Pulse 98 93 96 Oximetry 06/18/17 06/18/17 06/18/17 06:45 07:00 07:15 Temperature Pulse Rate 61 69 76 Respiratory 12 19 19 Rate Blood Pressure 123/62 123/54 123/54 O2 Sat by Pulse 97 87 83 L Oximetry 06/18/17 06/18/17 06/18/17 07:30 08:00 09:13 Temperature 98.3 F Pulse Rate 72 Respiratory 18 Rate Blood Pressure 123/91 O2 Sat by Pulse 97 99 Oximetry - General Appearance General appearance: well-developed, well-nourished, appears stated age EENT: ATNC, PERRL, mucous membranes moist Neck: no JVD Respiratory: Present: Clear to Ascultation Cardiology: regular, S1S2 Gastrointestinal: normoactive bowel sounds Integumentary: no rash, other (no edema ) Neurologic: no focal deficit, alert and oriented x3, strength 5/5, CN 3-12 intact Psychiatric: mood/affect appropriate, cooperative - Lab 06/18/17 05:00 06/18/17 05:00 Most recent lab results Calcium 7.9 mg/dL (8.4-10.2) L 06/18/17 05:00 Magnesium 1.90 mg/dL (1.7-2.3) 06/18/17 05:00
[2017-06-18] MEDS: NEURONTIN PO SCH ×2 (10:00→22:02)
[2017-06-18] MEDS: LOVENOX SUB-Q SCH (10:00)
[2017-06-18] MEDS: PROTONIX PO SCH (10:00)
[2017-06-18] MEDS ORDERED: VANCOMYCIN/NS 1 GM/250 ML 1 GM/250 ML BAG IV ONE (13:00)
[2017-06-18] MEDS ORDERED: ZOSYN/NS 2.25 GM/50ML 2.25 GM/50 ML BAG IV SCH (14:00)
--- NOTE | 2017-06-18 14:03 | Progress Note ---
Assessment and Plan Imp: 1. UTI 2. Severe sepsis with septic shock 3. ESRD 4. Acute respiratory failure, hypoxia 5. Metabolic encephalopathy 6. RV failure/pulm HTN/TR, ? etiology Rec: 1. Cont. Zosyn; f/u blood and urine cultures; add Vanco pending results given presence of permcath 2. Wean pressors to keep MAP > 65 3. TSH normal 4. Do not suspect ILD or pneumonia per CT chest 5. DVT PPx 6. Re: Echo findings, CTA chest negative 06/15/17, prior CT a/p showed normal liver; will send HIV and CTD panel, and give a small NS bolus given preload dependence; would consider outpatient PFTs +/- PSG if she recovers from current illness 7. Leave groin CVL 24 more hours pending cultures (not drawn on admission unfortunately); if cultures negative and cannot wean off pressors will place PICC on 06/19/17 No family present CCT 31 minutes Subjective Date of service: 06/18/17 Principal diagnosis: sepsis, ESRD Interval history: No events. On Levophed low-dose. Awake but confused, oriented to person only. Ate all of her breakfast. No complaints but poor historian. Active Medications Acetaminophen (Tylenol) 650 mg PO Q4H PRN PRN Reason: Pain MILD(1-3)/Fever >100.5/ALVARADO Bisacodyl (Dulcolax) 10 mg MI QDAY PRN PRN Reason: Constipation unrelieved by MOM Enoxaparin Sodium (Lovenox) 30 mg SUB-Q QDAY [facility] Last Admin: 06/18/17 10:00 Dose: 30 mg Gabapentin (Neurontin) 300 mg PO BID [facility] Last Admin: 06/18/17 10:00 Dose: 300 mg Heparin Sodium (Porcine) (Heparin) 5,000 unit IV RAJENDRA PRN PRN Reason: dwell after dialysis Last Admin: 06/17/17 21:43 Dose: 5,000 unit Norepinephrine (Levophed Drip 4 Mg/Ns 250 Ml) 4 mg in 250 mls @ 7.5 mls/hr IV TITR MUNA; 2 MCG/MIN PRN Reason: Protocol Last Titration: 06/18/17 12:09 Dose: 4 mcg/min, 15 mls/hr Sodium Chloride (Nacl 0.9%) 100 mls @ 999 mls/hr IV RAJENDRA PRN PRN Reason: Hypotension Piperacillin Sod/Tazobactam Sod (Zosyn/Ns 2.25 Gm/50ml) 2.25 gm in 50 mls @ 100 mls/hr IV Q8HR [facility] Vancomycin HCl (Vancomycin/Ns 1 Gm/250 Ml) 1 gm in 250 mls @ 167.007 mls/hr IV ONCE ONE Stop: 06/18/17 14:29 Sodium Chloride (Nacl 0.9% 250ml) 250 mls @ 999 mls/hr IV ONCE ONE Stop: 06/18/17 14:11 Insulin Aspart (Novolog) 0 units SUB-Q ACHS MUNA PRN Reason: Protocol Last Admin: 06/18/17 11:30 Dose: 4 units Miscellaneous Medication (Dorzolamide Hcl/Timolol Maleat [Dorzolamide-Timolol Eye Drops]) 10 ml OP QDAY [facility] Last Admin: 06/17/17 11:28 Dose: Not Given Ondansetron HCl (Zofran) 4 mg IV Q8H PRN PRN Reason: N/V unrelieved by Stan Last Admin: 06/17/17 06:47 Dose: 4 mg Pantoprazole Sodium (Protonix) 40 mg PO QDAY [facility] Last Admin: 06/18/17 10:00 Dose: 40 mg Objective Vital Signs - 12hr 06/18/17 06/18/17 06/18/17 02:00 02:15 02:30 Temperature Pulse Rate 53 L 54 L 53 L Respiratory 14 12 12 Rate Blood Pressure 111/48 111/48 112/45 O2 Sat by Pulse 98 99 96 Oximetry 06/18/17 06/18/17 06/18/17 02:45 03:01 03:15 Temperature Pulse Rate 53 L 61 58 L Respiratory 13 12 13 Rate Blood Pressure 112/45 104/63 104/63 O2 Sat by Pulse 98 99 96 Oximetry 06/18/17 06/18/17 06/18/17 03:31 03:45 03:58 Temperature 96.2 F L Pulse Rate 63 Respiratory 14 Rate Blood Pressure 113/84 113/84 O2 Sat by Pulse 97 97 Oximetry 06/18/17 06/18/17 06/18/17 04:00 04:15 04:31 Temperature Pulse Rate 58 L 64 59 L Respiratory 13 17 13 Rate Blood Pressure 113/84 79/52 107/51 O2 Sat by Pulse 97 98 Oximetry 06/18/17 06/18/17 06/18/17 04:45 05:01 05:15 Temperature Pulse Rate 61 66 71 Respiratory 13 14 15 Rate Blood Pressure 107/51 120/54 120/54 O2 Sat by Pulse 96 94 95 Oximetry 06/18/17 06/18/17 06/18/17 05:31 05:45 06:00 Temperature 97.3 F L Pulse Rate 69 63 65 Respiratory 17 14 15 Rate Blood Pressure 125/56 125/56 116/53 O2 Sat by Pulse 94 95 98 Oximetry 06/18/17 06/18/17 06/18/17 06:15 06:30 06:45 Temperature Pulse Rate 65 65 61 Respiratory 14 15 12 Rate Blood Pressure 116/53 123/62 123/62 O2 Sat by Pulse 93 96 97 Oximetry 06/18/17 06/18/17 06/18/17 07:00 07:15 07:30 Temperature Pulse Rate 69 76 72 Respiratory 19 19 18 Rate Blood Pressure 123/54 123/54 123/91 O2 Sat by Pulse 87 83 L 97 Oximetry 06/18/17 06/18/17 06/18/17 07:45 08:00 08:01 Temperature 98.3 F Pulse Rate 65 77 Respiratory 13 17 Rate Blood Pressure 123/91 113/75 O2 Sat by Pulse 99 95 Oximetry 06/18/17 06/18/17 06/18/17 08:15 08:31 08:45 Temperature Pulse Rate 78 72 58 L Respiratory 10 L 13 27 H Rate Blood Pressure 113/75 59/36 59/36 O2 Sat by Pulse 96 94 99 Oximetry 06/18/17 06/18/17 06/18/17 09:00 09:13 09:15 Temperature Pulse Rate 62 64 Respiratory 11 L 24 Rate Blood Pressure 106/57 106/57 O2 Sat by Pulse 98 99 97 Oximetry 06/18/17 06/18/17 06/18/17 09:30 09:45 10:00 Temperature Pulse Rate 59 L 59 L 63 Respiratory 15 12 14 Rate Blood Pressure 96/47 96/47 90/31 O2 Sat by Pulse 97 98 96 Oximetry 06/18/17 06/18/17 06/18/17 10:15 10:31 10:45 Temperature Pulse Rate 61 65 65 Respiratory 21 21 23 Rate Blood Pressure 90/31 93/35 93/35 O2 Sat by Pulse 96 92 97 Oximetry 06/18/17 06/18/17 06/18/17 11:00 11:15 11:31 Temperature Pulse Rate 63 62 67 Respiratory 14 15 18 Rate Blood Pressure 102/45 93/35 102/46 O2 Sat by Pulse 97 98 97 Oximetry 06/18/17 06/18/17 06/18/17 11:45 12:00 12:15 Temperature 98.4 F Pulse Rate 68 68 68 Respiratory 18 14 16 Rate Blood Pressure 102/46 105/52 112/52 O2 Sat by Pulse 97 96 96 Oximetry 06/18/17 06/18/17 06/18/17 12:31 12:45 12:49 Temperature 97.7 F Pulse Rate 81 84 Respiratory 14 14 Rate Blood Pressure 112/52 112/52 O2 Sat by Pulse 94 81 L Oximetry 06/18/17 06/18/17 13:01 13:15 Temperature Pulse Rate 76 72 Respiratory 17 15 Rate Blood Pressure 99/44 120/50 O2 Sat by Pulse 84 87 Oximetry Constitutional: alert, other (critically ill on pressors) Eyes: non-icteric ENT: oropharynx moist Neck: supple Effort: normal Ascultation: Bilateral: wheezes (faint expiratory bilaterally) Cardiovascular: regular rate and rhythm (no mrg) Gastrointestinal: normoactive bowel sounds, soft, non-tender, non-distended Integumentary: normal Extremities: no cyanosis, no edema, pink and warm Neurologic: non-focal exam, pupils equal and round, CN II-XII normal, other ( mildly confused) Psychiatric: mood appropriate, affect normal CBC and BMP: 06/18/17 05:00 06/18/17 05:00 ABG, PT/INR, D-dimer: ABG POC ABG pH 7.368 (7.35-7.45) 06/18/17 09:25 POC ABG pCO2 41.5 (35-45) 06/18/17 09:25 POC ABG pO2 72 (80-105) L 06/18/17 09:25 POC ABG HCO3 23.9 06/18/17 09:25 POC ABG Total CO2 25 06/18/17 09:25 POC ABG O2 Sat 94 06/18/17 09:25 PT/INR, D-dimer PT 16.9 Sec. (12.2-14.9) H 06/15/17 20:21 INR 1.31 (0.87-1.13) H 06/15/17 20:21 D-Dimer 985.05 ng/mlDDU (0-234) H 06/15/17 20:21 Abnormal lab findings: Abnormal Labs 06/15/17 06/15/17 06/15/17 17:52 19:00 19:00 WBC 3.7 L RBC 3.25 L RDW 15.8 H Lymph % (Auto) [place] % (Auto) 7.7 H Lymph # 0.9 L Seg Neutrophils % PT INR D-Dimer POC ABG pH POC ABG pCO2 POC ABG pO2 VBG pH Sodium Chloride 96.3 L BUN 32 H Creatinine 3.5 H Glucose 428 H POC Glucose > 500 H Hemoglobin A1c Calcium Direct Bilirubin AST ALT Alkaline Phosphatase Total Creatine Kinase NT-Pro-B Natriuret Pep Albumin Ur Specific [place] Urine WBC (Auto) U Epithel Cells (Auto) 06/15/17 06/15/17 06/15/17 19:00 19:35 20:00 WBC RBC RDW Lymph % (Auto) [place] % (Auto) Lymph # Seg Neutrophils % PT INR D-Dimer POC ABG pH POC ABG pCO2 POC ABG pO2 VBG pH 7.261 L Sodium Chloride BUN Creatinine Glucose POC Glucose 371 H 384 H Hemoglobin A1c Calcium Direct Bilirubin AST ALT Alkaline Phosphatase Total Creatine Kinase NT-Pro-B Natriuret Pep Albumin Ur Specific [place] Urine WBC (Auto) U Epithel Cells (Auto) 06/15/17 06/15/17 06/15/17 20:21 20:21 20:21 WBC RBC RDW Lymph % (Auto) [place] % (Auto) Lymph # Seg Neutrophils % PT 16.9 H INR 1.31 H D-Dimer 985.05 H POC ABG pH POC ABG pCO2 POC ABG pO2 VBG pH Sodium Chloride BUN Creatinine Glucose POC Glucose Hemoglobin A1c Calcium Direct Bilirubin AST ALT Alkaline Phosphatase Total Creatine Kinase 147 H NT-Pro-B Natriuret Pep 7290 H Albumin Ur Specific [place] Urine WBC (Auto) U Epithel Cells (Auto) 06/15/17 06/16/17 06/16/17 Unknown 10:13 13:23 WBC RBC RDW Lymph % (Auto) [place] % (Auto) Lymph # Seg Neutrophils % PT INR D-Dimer POC ABG pH POC ABG pCO2 POC ABG pO2 VBG pH Sodium Chloride BUN Creatinine Glucose POC Glucose 290 H 301 H Hemoglobin A1c Calcium Direct Bilirubin AST ALT Alkaline Phosphatase Total Creatine Kinase NT-Pro-B Natriuret Pep Albumin Ur Specific [place] Urine WBC (Auto) 72.0 H U Epithel Cells (Auto) 06/16/17 06/17/17 06/17/17 17:36 00:16 00:35 WBC RBC RDW Lymph % (Auto) [place] % (Auto) Lymph # Seg Neutrophils % PT INR D-Dimer POC ABG pH POC ABG pCO2 POC ABG pO2 VBG pH Sodium Chloride BUN Creatinine Glucose POC Glucose 120 H < 40 L 188 H Hemoglobin A1c Calcium Direct Bilirubin AST ALT Alkaline Phosphatase Total Creatine Kinase NT-Pro-B Natriuret Pep Albumin Ur Specific [place] Urine WBC (Auto) U Epithel Cells (Auto) 06/17/17 06/17/17 06/17/17 03:19 03:19 03:19 WBC RBC 3.31 L RDW 16.0 H Lymph % (Auto) [place] % (Auto) Lymph # 1.1 L Seg Neutrophils % 76.0 H PT INR D-Dimer POC ABG pH POC ABG pCO2 POC ABG pO2 VBG pH Sodium Chloride BUN 45 H Creatinine 4.5 H Glucose 192 H POC Glucose Hemoglobin A1c 11.5 H Calcium 8.1 L Direct Bilirubin AST ALT Alkaline Phosphatase Total Creatine Kinase NT-Pro-B Natriuret Pep Albumin Ur Specific [place] Urine WBC (Auto) U Epithel Cells (Auto) 06/17/17 06/17/17 06/17/17 03:51 06:44 11:15 WBC RBC RDW Lymph % (Auto) [place] % (Auto) Lymph # Seg Neutrophils % PT INR D-Dimer POC ABG pH POC ABG pCO2 POC ABG pO2 VBG pH Sodium Chloride BUN Creatinine Glucose POC Glucose 184 H 326 H 380 H Hemoglobin A1c Calcium Direct Bilirubin AST ALT Alkaline Phosphatase Total Creatine Kinase NT-Pro-B Natriuret Pep Albumin Ur Specific [place] Urine WBC (Auto) U Epithel Cells (Auto) 06/17/17 06/17/17 06/18/17 17:56 23:35 00:02 WBC RBC RDW Lymph % (Auto) [place] % (Auto) Lymph # Seg Neutrophils % PT INR D-Dimer POC ABG pH 7.314 L POC ABG pCO2 48.8 H POC ABG pO2 53 L VBG pH Sodium Chloride BUN Creatinine Glucose POC Glucose 59 L < 40 L Hemoglobin A1c Calcium Direct Bilirubin AST ALT Alkaline Phosphatase Total Creatine Kinase NT-Pro-B Natriuret Pep Albumin Ur Specific [place] Urine WBC (Auto) U Epithel Cells (Auto) 06/18/17 06/18/17 06/18/17 00:08 00:25 00:43 WBC RBC RDW Lymph % (Auto) [place] % (Auto) Lymph # Seg Neutrophils % PT INR D-Dimer POC ABG pH POC ABG pCO2 POC ABG pO2 VBG pH Sodium 136 L Chloride 95.8 L BUN 21 H Creatinine 2.9 H Glucose 131 H POC Glucose 151 H Hemoglobin A1c Calcium 8.2 L Direct Bilirubin AST ALT Alkaline Phosphatase Total Creatine Kinase NT-Pro-B Natriuret Pep Albumin Ur Specific [place] 1.041 H Urine WBC (Auto) 67.0 H U Epithel Cells (Auto) 24.0 H 06/18/17 06/18/17 06/18/17 02:11 05:00 05:00 WBC RBC 3.22 L RDW 16.2 H Lymph % (Auto) 10.3 L [place] % (Auto) Lymph # 0.7 L Seg Neutrophils % 81.3 H PT INR D-Dimer POC ABG pH POC ABG pCO2 POC ABG pO2 VBG pH Sodium Chloride BUN 21 H Creatinine 3.2 H Glucose 159 H POC Glucose 183 H Hemoglobin A1c Calcium 7.9 L Direct Bilirubin 0.3 H AST 73 H ALT 112 H Alkaline Phosphatase 207 H Total Creatine Kinase NT-Pro-B Natriuret Pep Albumin 3.4 L Ur Specific [place] Urine WBC (Auto) U Epithel Cells (Auto) 06/18/17 06/18/17 06/18/17 05:31 09:25 12:30 WBC RBC RDW Lymph % (Auto) [place] % (Auto) Lymph # Seg Neutrophils % PT INR D-Dimer POC ABG pH POC ABG pCO2 POC ABG pO2 72 L VBG pH Sodium Chloride BUN Creatinine Glucose POC Glucose 181 H 286 H Hemoglobin A1c Calcium Direct Bilirubin AST ALT Alkaline Phosphatase Total Creatine Kinase NT-Pro-B Natriuret Pep Albumin Ur Specific [place] Urine WBC (Auto) U Epithel Cells (Auto) Chest x-ray: report reviewed, image reviewed CT scan - chest: report reviewed, image reviewed
[2017-06-18] MEDS ORDERED: NACL 0.9% 250ML 250 ML IV ONE (14:56)
[2017-06-18 16:14] LABS: HIV-1 Antigen p24 Non React (Non React); HIVR-1/2 Ab Non React (Non React)
--- NOTE | 2017-06-18 16:21 | Progress Note ---
Assessment and Plan Assessment and plan: --Septic shock; on Levophed, IV fluids, titrate systolic blood pressure to more than 100, map more than 65 --Sepsis secondary to urinary tract infection; continue empiric antibiotics, follow cultures, ID if needed --End-stage renal disease on hemodialysis; dialysis per schedule, nephrology consulted --Type 2 diabetes mellitus; uncontrolled , slight insulin was not given by the nurse for unknown reason Accu-Chek sliding scale coverage and ADA diet and insulin, A1c 11.5, possible home health nurse at discharge --CHF on CT scan; probably diastolic dysfunction ,echocardiogram for left ventricle function ejection fraction, cannot use diuretics in view of hypotension --DVT prophylaxis; with heparin --Full CODE STATUS Closely monitor the patient and adjust the management as needed Plan of care discussed with the patient and her nurse Critical care time 31 minutes The high probability of a clinically significant, sudden or life threatening deterioration of the [ID,,cardio ,renal] system(s) required my full and direct attention, intervention and personal management. The aggregate critical care time was [31 ] minutes. This time is in addition to time spent performing reported procedures but includes the following: [x] Data Review and interpretation [x] Patient assessment and monitoring of vital signs [x] Documentation, counseling [x] Medication orders and management History Interval history: Patient seen and examined No new events reported by nursing staff Remains on Levophed Hospitalist Physical - Constitutional Vitals: Temp Pulse Resp BP Pulse Ox 97.7 F 72 15 120/50 87 06/18/17 12:49 06/18/17 13:15 06/18/17 13:15 06/18/17 13:15 06/18/17 13:15 General appearance: Present: no acute distress, well-nourished, obese - EENT Eyes: Present: PERRL, EOM intact - Neck Neck: Present: supple, normal ROM - Respiratory Respiratory effort: normal Respiratory: bilateral: diminished, negative: rales, rhonchi, wheezing - Cardiovascular Rhythm: regular Heart Sounds: Present: S1 & S2 - Extremities Extremities: no ischemia, normal temperature - Abdominal General gastrointestinal: soft, non-tender, non-distended, normal bowel sounds - Integumentary Integumentary: Present: clear, warm - Psychiatric Psychiatric: appropriate mood/affect, cooperative - Neurologic Neurologic: CNII-XII intact, moves all extremities Results - Labs CBC & Chem 7: 06/18/17 05:00 06/18/17 05:00 Labs: Laboratory Last Values WBC 6.7 K/mm3 (4.5-11.0) 06/18/17 05:00 RBC 3.22 M/mm3 (3.65-5.03) L 06/18/17 05:00 Hgb 10.3 gm/dl (10.1-14.3) 06/18/17 05:00 Hct 31.0 % (30.3-42.9) 06/18/17 05:00 MCV 96 fl (79-97) 06/18/17 05:00 MCH 32 pg (28-32) 06/18/17 05:00 MCHC 33 % (30-34) 06/18/17 05:00 RDW 16.2 % (13.2-15.2) H 06/18/17 05:00 Plt Count 179 K/mm3 (140-440) 06/18/17 05:00 Lymph % (Auto) 10.3 % (13.4-35.0) L 06/18/17 05:00 [place] % (Auto) 6.7 % (0.0-7.3) 06/18/17 05:00 Eos % (Auto) 1.4 % (0.0-4.3) 06/18/17 05:00 Baso % (Auto) 0.3 % (0.0-1.8) 06/18/17 05:00 Lymph # 0.7 K/mm3 (1.2-5.4) L 06/18/17 05:00 [place] # 0.4 K/mm3 (0.0-0.8) 06/18/17 05:00 Eos # 0.1 K/mm3 (0.0-0.4) 06/18/17 05:00 Baso # 0.0 K/mm3 (0.0-0.1) 06/18/17 05:00 Seg Neutrophils % 81.3 % (40.0-70.0) H 06/18/17 05:00 Seg Neutrophils # 5.5 K/mm3 (1.8-7.7) 06/18/17 05:00 PT 16.9 Sec. (12.2-14.9) H 06/15/17 20:21 INR 1.31 (0.87-1.13) H 06/15/17 20:21 APTT 35.3 Sec. (24.2-36.6) 06/15/17 20:21 D-Dimer 985.05 ng/mlDDU (0-234) H 06/15/17 20:21 POC ABG pH 7.368 (7.35-7.45) 06/18/17 09:25 POC ABG pCO2 41.5 (35-45) 06/18/17 09:25 POC ABG pO2 72 (80-105) L 06/18/17 09:25 POC ABG HCO3 23.9 06/18/17 09:25 POC ABG Total CO2 25 06/18/17 09:25 POC ABG O2 Sat 94 06/18/17 09:25 POC ABG Base Excess -1 06/18/17 09:25 VBG pH 7.261 (7.320-7.420) L 06/15/17 19:00 FiO2 35 % 06/18/17 09:25 Sodium 140 mmol/L (137-145) 06/18/17 05:00 Potassium 4.0 mmol/L (3.6-5.0) 06/18/17 05:00 Chloride 98.9 mmol/L (98-107) 06/18/17 05:00 Carbon Dioxide 27 mmol/L (22-30) 06/18/17 05:00 Anion Gap 18 mmol/L 06/18/17 05:00 BUN 21 mg/dL (7-17) H 06/18/17 05:00 Creatinine 3.2 mg/dL (0.7-1.2) H 06/18/17 05:00 Estimated GFR 17 ml/min 06/18/17 05:00 BUN/Creatinine Ratio 7 % 06/18/17 05:00 Glucose 159 mg/dL (65-100) H 06/18/17 05:00 POC Glucose 286 (70-105) H 06/18/17 12:30 Hemoglobin A1c 11.5 % (4-6) H 06/17/17 03:19 Lactic Acid 1.50 mmol/L (0.7-2.0) 06/17/17 15:12 Calcium 7.9 mg/dL (8.4-10.2) L 06/18/17 05:00 Magnesium 1.90 mg/dL (1.7-2.3) 06/18/17 05:00 Total Bilirubin 0.60 mg/dL (0.1-1.2) 06/18/17 05:00 Direct Bilirubin 0.3 mg/dL (0-0.2) H 06/18/17 05:00 Indirect Bilirubin 0.3 mg/dL 06/18/17 05:00 AST 73 units/L (5-40) H 06/18/17 05:00 ALT 112 units/L (7-56) H 06/18/17 05:00 Alkaline Phosphatase 207 units/L (35-129) H 06/18/17 05:00 Total Creatine Kinase 124 units/L (30-135) 06/16/17 10:25 CK-MB (CK-2) 1.9 ng/mL (0.0-4.0) 06/16/17 10:25 CK-MB (CK-2) Rel Index 1.5 (0-4) 06/16/17 10:25 Troponin T < 0.010 ng/mL (0.00-0.029) 06/16/17 10:25 C-Reactive Protein 2.50 mg/dL (0.00-1.30) H 06/18/17 13:57 NT-Pro-B Natriuret Pep 7290 pg/mL (0-900) H 06/15/17 20:21 Total Protein 6.4 g/dL (6.3-8.2) 06/18/17 05:00 Albumin 3.4 g/dL (3.9-5) L 06/18/17 05:00 Albumin/Globulin Ratio 1.1 % 06/18/17 05:00 TSH 0.415 mlU/mL (0.270-4.200) 06/17/17 15:12 Urine Color [place] (Yellow) 06/18/17 00:25 Urine Turbidity Slightly cloudy (Clear) 06/18/17 00:25 Urine pH 5.0 (5.0-7.0) 06/18/17 00:25 Ur Specific [place] 1.041 (1.003-1.030) H 06/18/17 00:25 Urine Protein 100 mg/dl mg/dL (Negative) 06/18/17 00:25 Urine Glucose (UA) 50 mg/dL (Negative) 06/18/17 00:25 Urine Ketones Neg mg/dL (Negative) 06/18/17 00:25 Urine Blood Sm (Negative) 06/18/17 00:25 Urine Nitrite Neg (Negative) 06/18/17 00:25 Urine Bilirubin Neg (Negative) 06/18/17 00:25 Urine Ictotest Negative (Negative) 06/15/17 Unknown Urine Urobilinogen < 2.0 mg/dL (<2.0) 06/18/17 00:25 Ur Leukocyte Esterase Mod (Negative) 06/18/17 00:25 Urine WBC (Auto) 67.0 /HPF (0.0-6.0) H 06/18/17 00:25 Urine RBC (Auto) 25.0 /HPF (0.0-6.0) 06/18/17 00:25 U Epithel Cells (Auto) 24.0 /HPF (0-13.0) H 06/18/17 00:25 Urine Bacteria (Auto) 1+ /HPF (Negative) 06/18/17 00:25 Urine WBC Clumps 2+ /HPF 06/18/17 00:25 Amorphous Crystals 2+ 06/18/17 00:25 Hyaline Casts 3 /LPF 06/18/17 00:25 Urine Mucus Few /HPF 06/18/17 00:25 Rheumatoid Factor < 10 IU/ml (0-13) 06/18/17 14:51 HIV 1&2 Antibody Rapid Non react (Non React) 06/18/17 14:51 HIV P24 Antigen Non react (Non React) 06/18/17 14:51
[2017-06-18] MEDS ORDERED: D50W (25GM) Vial 50 ML IV ONE (21:52)
[2017-06-18] MEDS ORDERED: D50W (25GM) Vial IV PRN (23:00)
[2017-06-18] MEDS: TYLENOL PO PRN (23:07)
[2017-06-18] MEDS: ZOFRAN IV PRN (23:08)
[2017-06-19] MEDS: PROVENTIL IH SCH ×3 (00:10→09:01)
[2017-06-19] MEDS: MORPHINE IV PRN ×3 (00:15→09:57)
[2017-06-19] MEDS: ZOSYN/NS 2.25 GM/50ML 2.25 GM/50 ML BAG IV SCH (00:30)
[2017-06-19 05:35] LABS: Basophils % (Auto) 0.3 % (0.0-1.8); Eosinophils % (Auto) 1.2 % (0.0-4.3); Hematocrit 29.4 % (30.3-42.9); Hemoglobin 9.7 gm/dl (10.1-14.3); Mean Corpuscular HGB Conc 33 % (30-34); Mean Corpuscular Hemoglobin 32 pg (28-32); Mean Corpuscular Volume 97 fl (79-97); Platelet Count 166 K/mm3 (140-440); Red Blood Count 3.02 M/mm3 (3.65-5.03); Red Cell Distribution Width 16.9 % (13.2-15.2); White Blood Count 7.9 K/mm3 (4.5-11.0)
[2017-06-19 06:00] LABS: Albumin 3.3 g/dL (3.9-5); Albumin/Globulin Ratio 1.1 %; Chloride 96.2 mmol/L (98-107); Potassium 4.5 mmol/L (3.6-5.0); Total Protein 6.3 g/dL (6.3-8.2)
[2017-06-19] MEDS: NOVOLOG SUB-Q SCH ×2 (06:14→13:50)
--- NOTE | 2017-06-19 09:29 | Progress Note ---
Assessment and Plan Assessment and plan: --Septic shock; blood prs improved , off Levophed, IV fluids, closely monitor --Sepsis secondary to urinary tract infection; continue empiric antibiotics, follow cultures, ID if needed --End-stage renal disease on hemodialysis; dialysis per schedule, nephrology consulted --Type 2 diabetes mellitus; uncontrolled , slight insulin was not given by the nurse for unknown reason Accu-Chek sliding scale coverage and ADA diet and insulin, A1c 11.5, possible home health nurse at discharge --CHF on CT scan; probably diastolic dysfunction ,echocardiogram for left ventricle function ejection fraction, cannot use diuretics in view of hypotension --DVT prophylaxis; with heparin --Full CODE STATUS Closely monitor the patient and adjust the management as needed If blood pressures remain stable , may transfer out of ICU to the floor Critical care time 31 minutes The high probability of a clinically significant, sudden or life threatening deterioration of the [ID,cardio ,renal] system(s) required my full and direct attention, intervention and personal management. The aggregate critical care time was [31 ] minutes. This time is in addition to time spent performing reported procedures but includes the following: [x] Data Review and interpretation [x] Patient assessment and monitoring of vital signs [x] Documentation, counseling [x] Medication orders and management History Interval history: Patient seen and examined medical records reviewed Blood pressures are reasonable levels, off Levophed Lethargy, responds to verbal commands Vital signs reviewed Hospitalist Physical - Constitutional Vitals: Temp Pulse Resp BP Pulse Ox 97.8 F 79 20 102/43 98 06/19/17 08:00 06/19/17 09:14 06/19/17 09:14 06/19/17 06:30 06/19/17 08:59 General appearance: Present: no acute distress, well-nourished, other (lethergic ) - EENT Eyes: Present: PERRL, EOM intact - Neck Neck: Present: supple, normal ROM - Respiratory Respiratory effort: normal Respiratory: bilateral: diminished, negative: rales, rhonchi, wheezing - Cardiovascular Rhythm: regular Heart Sounds: Present: S1 & S2 - Extremities Extremities: no ischemia, No edema - Abdominal General gastrointestinal: soft, non-tender, non-distended, normal bowel sounds - Integumentary Integumentary: Present: clear, warm - Psychiatric Psychiatric: cooperative, other (minimally communicative) - Neurologic Neurologic: moves all extremities, other (lethargic) Results - Labs CBC & Chem 7: 06/19/17 04:50 06/19/17 04:50 Labs: Laboratory Last Values WBC 7.9 K/mm3 (4.5-11.0) 06/19/17 04:50 RBC 3.02 M/mm3 (3.65-5.03) L 06/19/17 04:50 Hgb 9.7 gm/dl (10.1-14.3) L 06/19/17 04:50 Hct 29.4 % (30.3-42.9) L 06/19/17 04:50 MCV 97 fl (79-97) 06/19/17 04:50 MCH 32 pg (28-32) 06/19/17 04:50 MCHC 33 % (30-34) 06/19/17 04:50 RDW 16.9 % (13.2-15.2) H 06/19/17 04:50 Plt Count 166 K/mm3 (140-440) 06/19/17 04:50 Lymph % (Auto) 5.9 % (13.4-35.0) L 06/19/17 04:50 [place] % (Auto) 5.3 % (0.0-7.3) 06/19/17 04:50 Eos % (Auto) 1.2 % (0.0-4.3) 06/19/17 04:50 Baso % (Auto) 0.3 % (0.0-1.8) 06/19/17 04:50 Lymph # 0.5 K/mm3 (1.2-5.4) L 06/19/17 04:50 [place] # 0.4 K/mm3 (0.0-0.8) 06/19/17 04:50 Eos # 0.1 K/mm3 (0.0-0.4) 06/19/17 04:50 Baso # 0.0 K/mm3 (0.0-0.1) 06/19/17 04:50 Seg Neutrophils % 87.3 % (40.0-70.0) H 06/19/17 04:50 Seg Neutrophils # 6.9 K/mm3 (1.8-7.7) 06/19/17 04:50 PT 16.9 Sec. (12.2-14.9) H 06/15/17 20:21 INR 1.31 (0.87-1.13) H 06/15/17 20:21 APTT 35.3 Sec. (24.2-36.6) 06/15/17 20:21 D-Dimer 985.05 ng/mlDDU (0-234) H 06/15/17 20:21 POC ABG pH 7.368 (7.35-7.45) 06/18/17 09:25 POC ABG pCO2 41.5 (35-45) 06/18/17 09:25 POC ABG pO2 72 (80-105) L 06/18/17 09:25 POC ABG HCO3 23.9 06/18/17 09:25 POC ABG Total CO2 25 06/18/17 09:25 POC ABG O2 Sat 94 06/18/17 09:25 POC ABG Base Excess -1 06/18/17 09:25 VBG pH 7.261 (7.320-7.420) L 06/15/17 19:00 FiO2 35 % 06/18/17 09:25 Sodium 136 mmol/L (137-145) L 06/19/17 04:50 Potassium 4.5 mmol/L (3.6-5.0) 06/19/17 04:50 Chloride 96.2 mmol/L (98-107) L 06/19/17 04:50 Carbon Dioxide 24 mmol/L (22-30) 06/19/17 04:50 Anion Gap 20 mmol/L 06/19/17 04:50 BUN 27 mg/dL (7-17) H 06/19/17 04:50 Creatinine 4.3 mg/dL (0.7-1.2) H 06/19/17 04:50 Estimated GFR 12 ml/min 06/19/17 04:50 BUN/Creatinine Ratio 6 % 06/19/17 04:50 Glucose 111 mg/dL (65-100) H 06/19/17 04:50 POC Glucose 108 (70-105) H 06/19/17 07:47 Hemoglobin A1c 11.5 % (4-6) H 06/17/17 03:19 Lactic Acid 1.50 mmol/L (0.7-2.0) 06/17/17 15:12 Calcium 8.0 mg/dL (8.4-10.2) L 06/19/17 04:50 Magnesium 1.90 mg/dL (1.7-2.3) 06/18/17 05:00 Total Bilirubin 1.00 mg/dL (0.1-1.2) 06/19/17 04:50 Direct Bilirubin 0.3 mg/dL (0-0.2) H 06/18/17 05:00 Indirect Bilirubin 0.3 mg/dL 06/18/17 05:00 AST 51 units/L (5-40) H 06/19/17 04:50 ALT 95 units/L (7-56) H 06/19/17 04:50 Alkaline Phosphatase 236 units/L (35-129) H 06/19/17 04:50 Total Creatine Kinase 124 units/L (30-135) 06/16/17 10:25 CK-MB (CK-2) 1.9 ng/mL (0.0-4.0) 06/16/17 10:25 CK-MB (CK-2) Rel Index 1.5 (0-4) 06/16/17 10:25 Troponin T < 0.010 ng/mL (0.00-0.029) 06/16/17 10:25 C-Reactive Protein 2.50 mg/dL (0.00-1.30) H 06/18/17 13:57 NT-Pro-B Natriuret Pep 7290 pg/mL (0-900) H 06/15/17 20:21 Total Protein 6.3 g/dL (6.3-8.2) 06/19/17 04:50 Albumin 3.3 g/dL (3.9-5) L 06/19/17 04:50 Albumin/Globulin Ratio 1.1 % 06/19/17 04:50 TSH 0.415 mlU/mL (0.270-4.200) 06/17/17 15:12 Urine Color [place] (Yellow) 06/18/17 00:25 Urine Turbidity Slightly cloudy (Clear) 06/18/17 00:25 Urine pH 5.0 (5.0-7.0) 06/18/17 00:25 Ur Specific [place] 1.041 (1.003-1.030) H 06/18/17 00:25 Urine Protein 100 mg/dl mg/dL (Negative) 06/18/17 00:25 Urine Glucose (UA) 50 mg/dL (Negative) 06/18/17 00:25 Urine Ketones Neg mg/dL (Negative) 06/18/17 00:25 Urine Blood Sm (Negative) 06/18/17 00:25 Urine Nitrite Neg (Negative) 06/18/17 00:25 Urine Bilirubin Neg (Negative) 06/18/17 00:25 Urine Ictotest Negative (Negative) 06/15/17 Unknown Urine Urobilinogen < 2.0 mg/dL (<2.0) 06/18/17 00:25 Ur Leukocyte Esterase Mod (Negative) 06/18/17 00:25 Urine WBC (Auto) 67.0 /HPF (0.0-6.0) H 06/18/17 00:25 Urine RBC (Auto) 25.0 /HPF (0.0-6.0) 06/18/17 00:25 U Epithel Cells (Auto) 24.0 /HPF (0-13.0) H 06/18/17 00:25 Urine Bacteria (Auto) 1+ /HPF (Negative) 06/18/17 00:25 Urine WBC Clumps 2+ /HPF 06/18/17 00:25 Amorphous Crystals 2+ 06/18/17 00:25 Hyaline Casts 3 /LPF 06/18/17 00:25 Urine Mucus Few /HPF 06/18/17 00:25 Rheumatoid Factor < 10 IU/ml (0-13) 06/18/17 14:51 HIV 1&2 Antibody Rapid Non react (Non React) 06/18/17 14:51 HIV P24 Antigen Non react (Non React) 06/18/17 14:51
[2017-06-19] MEDS: NEURONTIN PO SCH (09:58)
[2017-06-19] MEDS: LOVENOX SUB-Q SCH (09:58)
[2017-06-19] MEDS: PROTONIX PO SCH (09:58)
[2017-06-19] MEDS ORDERED: LASIX PO SCH (10:00)
--- NOTE | 2017-06-19 10:55 | Progress Note ---
Assessment and Plan - Patient Problems (1) Septic shock Current Visit: No Status: Acute Plan to address problem: cont empiric ABXs, vasopressor support to keep MAP > 65mmHg. BCx/UCx NGTD (2) Acute UTI Current Visit: Yes Status: Acute Plan to address problem: cont ABXs, dose renally adjusted (3) ESRD (end stage renal disease) Current Visit: No Status: Acute Plan to address problem: cont HD on MWF schedule (4) Anemia in chronic kidney disease Current Visit: No Status: Acute Plan to address problem: Hb at target, no need for EPO at present Subjective Date of service: 06/19/17 Principal diagnosis: sepsis, ESRD Interval history: Pt weak, remains on vasopressor support with levo at 4mcg/min Objective - Vital Signs Vital signs: Vital Signs - 12hr 06/18/17 06/18/17 06/18/17 23:00 23:11 23:15 Temperature Pulse Rate 75 81 77 Pulse Rate [ Bilateral Throughout] Respiratory 14 22 14 Rate Respiratory Rate [Bilateral Throughout] Blood Pressure 121/46 121/46 121/46 O2 Sat by Pulse 94 88 93 Oximetry 06/18/17 06/18/17 06/19/17 23:31 23:45 00:00 Temperature 98.0 F Pulse Rate 76 75 76 Pulse Rate [ Bilateral Throughout] Respiratory 16 14 24 Rate Respiratory Rate [Bilateral Throughout] Blood Pressure 114/54 114/54 117/48 O2 Sat by Pulse 94 95 94 Oximetry 06/19/17 06/19/17 06/19/17 00:10 00:15 00:25 Temperature Pulse Rate 71 Pulse Rate [ 73 75 Bilateral Throughout] Respiratory 16 Rate Respiratory 15 15 Rate [Bilateral Throughout] Blood Pressure 117/48 O2 Sat by Pulse 97 Oximetry 06/19/17 06/19/17 06/19/17 00:31 00:45 01:00 Temperature Pulse Rate 72 72 Pulse Rate [ Bilateral Throughout] Respiratory 15 15 22 Rate Respiratory Rate [Bilateral Throughout] Blood Pressure 117/48 75/39 O2 Sat by Pulse 92 98 93 Oximetry 06/19/17 06/19/17 06/19/17 01:01 01:15 01:31 Temperature Pulse Rate 72 69 69 Pulse Rate [ Bilateral Throughout] Respiratory 13 17 14 Rate Respiratory Rate [Bilateral Throughout] Blood Pressure 116/40 116/40 96/37 O2 Sat by Pulse 86 95 67 L Oximetry 06/19/17 06/19/17 06/19/17 01:45 02:00 02:15 Temperature Pulse Rate 70 69 68 Pulse Rate [ Bilateral Throughout] Respiratory 9 L 16 18 Rate Respiratory Rate [Bilateral Throughout] Blood Pressure 102/50 100/43 114/40 O2 Sat by Pulse 98 94 91 Oximetry 06/19/17 06/19/17 06/19/17 02:31 02:45 03:01 Temperature Pulse Rate 69 75 71 Pulse Rate [ Bilateral Throughout] Respiratory 17 25 H 17 Rate Respiratory Rate [Bilateral Throughout] Blood Pressure 114/42 104/45 108/47 O2 Sat by Pulse 98 95 96 Oximetry 06/19/17 06/19/17 06/19/17 03:15 03:31 03:45 Temperature Pulse Rate 74 74 75 Pulse Rate [ Bilateral Throughout] Respiratory 11 L 11 L 19 Rate Respiratory Rate [Bilateral Throughout] Blood Pressure 108/47 106/49 97/59 O2 Sat by Pulse 73 L 98 87 Oximetry 06/19/17 06/19/17 06/19/17 04:00 04:15 04:31 Temperature 98.0 F Pulse Rate 72 74 74 Pulse Rate [ Bilateral Throughout] Respiratory 15 17 11 L Rate Respiratory Rate [Bilateral Throughout] Blood Pressure 114/50 106/45 107/49 O2 Sat by Pulse 95 96 95 Oximetry 06/19/17 06/19/17 06/19/17 04:39 04:45 05:01 Temperature Pulse Rate 75 82 Pulse Rate [ Bilateral Throughout] Respiratory 19 13 12 Rate Respiratory Rate [Bilateral Throughout] Blood Pressure 100/52 100/52 O2 Sat by Pulse 93 100 95 Oximetry 06/19/17 06/19/17 06/19/17 05:15 05:31 05:45 Temperature Pulse Rate 79 81 79 Pulse Rate [ Bilateral Throughout] Respiratory 12 12 24 Rate Respiratory Rate [Bilateral Throughout] Blood Pressure 66/39 109/54 108/56 O2 Sat by Pulse 85 93 95 Oximetry 06/19/17 06/19/17 06/19/17 06:01 06:15 06:16 Temperature Pulse Rate 78 80 Pulse Rate [ Bilateral Throughout] Respiratory 17 20 22 Rate Respiratory Rate [Bilateral Throughout] Blood Pressure 108/56 108/56 O2 Sat by Pulse 96 52 L Oximetry 06/19/17 06/19/17 06/19/17 06:30 06:45 07:00 Temperature Pulse Rate 70 70 72 Pulse Rate [ Bilateral Throughout] Respiratory 23 14 15 Rate Respiratory Rate [Bilateral Throughout] Blood Pressure 102/43 102/52 111/45 O2 Sat by Pulse 99 100 100 Oximetry 06/19/17 06/19/17 06/19/17 07:15 07:30 07:45 Temperature Pulse Rate 72 68 68 Pulse Rate [ Bilateral Throughout] Respiratory 15 14 14 Rate Respiratory Rate [Bilateral Throughout] Blood Pressure 104/55 100/41 111/48 O2 Sat by Pulse 100 100 98 Oximetry 06/19/17 06/19/17 06/19/17 08:00 08:59 09:00 Temperature 97.8 F Pulse Rate 69 Pulse Rate [ Bilateral Throughout] Respiratory 13 18 Rate Respiratory Rate [Bilateral Throughout] Blood Pressure 92/44 97/48 O2 Sat by Pulse 99 98 97 Oximetry 06/19/17 06/19/17 06/19/17 09:01 09:14 10:00 Temperature Pulse Rate Pulse Rate [ 74 79 Bilateral Throughout] Respiratory 18 Rate Respiratory 20 20 Rate [Bilateral Throughout] Blood Pressure 109/40 O2 Sat by Pulse 95 Oximetry - General Appearance General appearance: well-developed, well-nourished, appears stated age EENT: ATNC, PERRL Neck: no JVD Respiratory: Present: Clear to Ascultation Cardiology: regular, S1S2 Gastrointestinal: normoactive bowel sounds Integumentary: no rash, other (no edema ) Neurologic: no focal deficit, alert and oriented x3, strength 5/5, CN 3-12 intact Psychiatric: mood/affect appropriate, cooperative - Lab 06/19/17 04:50 06/19/17 04:50 Most recent lab results Calcium 8.0 mg/dL (8.4-10.2) L 06/19/17 04:50 Magnesium 1.90 mg/dL (1.7-2.3) 06/18/17 05:00
[2017-06-19] MEDS ORDERED: PROVENTIL IH PRN (12:49)
[2017-06-19] MEDS: DUONEB *Not for PRN Use IH SCH ×5 (12:50→23:44)
--- NOTE | 2017-06-19 13:53 | Progress Note ---
Assessment and Plan Imp: 1. UTI 2. Severe sepsis with septic shock 3. ESRD 4. Acute respiratory failure, hypoxia 5. Metabolic encephalopathy 6. RV failure/pulm HTN/TR, ? etiology Rec: 1. Complete course of Zosyn empirically; received a dose of Vanco 06/18/17 but no need to continue if cultures remain negative 2. Monitor BP, off pressors x 24 hours 3. TSH normal 4. Do not suspect ILD or pneumonia per CT chest 5. DVT PPx 6. Re: Echo findings, CTA chest negative 06/15/17, prior CT a/p showed normal liver; f/u HIV and CTD panel; would recommend outpatient PFTs +/- PSG if she recovers from current illness 7. For HD today 8. Mentation and work of breathing appear worse this afternoon; obtain stat CXR and ABG, w/ BIPAP on standby; CT head was negative on admit 9. Place PICC line and remove groin CVL rico Complex patient, decision-making Plan of care reviewed with family at bedside, they understand/agree Subjective Date of service: 06/19/17 Principal diagnosis: sepsis, ESRD Interval history: Patient was transferred to floor this AM. I was not called or asked to clear the patient for transfer. She has been off of pressors x 24 hours. She is more confused and somnolent today, arouses but only moans to questions. Appears to have increased SOB + wheezing as well. She cannot give me any history. She is on nasal cannula. Active Medications Acetaminophen (Tylenol) 650 mg PO Q4H PRN PRN Reason: Pain MILD(1-3)/Fever >100.5/ALVARADO Last Admin: 06/18/17 23:07 Dose: 650 mg Albuterol (Proventil) 2.5 mg IH Q3H PRN PRN Reason: Shortness Of Breath Albuterol/Ipratropium (Duoneb *Not For Prn Use*) 1 ampul IH Q4HRT [facility] Bisacodyl (Dulcolax) 10 mg [place] QDAY PRN PRN Reason: Constipation unrelieved by MOM Dextrose (D50w (25gm) Vial) 25 gm IV PRN PRN PRN Reason: Hypoglycemia Enoxaparin Sodium (Lovenox) 30 mg SUB-Q QDAY [facility] Last Admin: 06/19/17 09:58 Dose: 30 mg Gabapentin (Neurontin) 300 mg PO BID [facility] Last Admin: 06/19/17 09:58 Dose: 300 mg Heparin Sodium (Porcine) (Heparin) 5,000 unit IV RAJENDRA PRN PRN Reason: dwell after dialysis Last Admin: 06/17/17 21:43 Dose: 5,000 unit Sodium Chloride (Nacl 0.9%) 100 mls @ 999 mls/hr IV RAJENDRA PRN PRN Reason: Hypotension Piperacillin Sod/Tazobactam Sod (Zosyn/Ns 2.25 Gm/50ml) 2.25 gm in 50 mls @ 100 mls/hr IV Q8HR [facility] Insulin Aspart (Novolog) 0 units SUB-Q ACHS MUNA PRN Reason: Protocol Last Admin: 06/19/17 06:14 Dose: Not Given Miscellaneous Medication (Dorzolamide Hcl/Timolol Maleat [Dorzolamide-Timolol Eye Drops]) 10 ml OP QDAY [facility] Last Admin: 06/17/17 11:28 Dose: Not Given Ondansetron HCl (Zofran) 4 mg IV Q8H PRN PRN Reason: N/V unrelieved by Stan Last Admin: 06/18/17 23:08 Dose: 4 mg Pantoprazole Sodium (Protonix) 40 mg PO QDAY [facility] Last Admin: 06/19/17 09:58 Dose: 40 mg Objective Vital Signs - 12hr 06/19/17 06/19/17 06/19/17 02:00 02:15 02:31 Temperature Pulse Rate 69 68 69 Pulse Rate [ Bilateral Throughout] Respiratory 16 18 17 Rate Respiratory Rate [Bilateral Throughout] Blood Pressure 100/43 114/40 114/42 O2 Sat by Pulse 94 91 98 Oximetry 06/19/17 06/19/17 06/19/17 02:45 03:01 03:15 Temperature Pulse Rate 75 71 74 Pulse Rate [ Bilateral Throughout] Respiratory 25 H 17 11 L Rate Respiratory Rate [Bilateral Throughout] Blood Pressure 104/45 108/47 108/47 O2 Sat by Pulse 95 96 73 L Oximetry 06/19/17 06/19/17 06/19/17 03:31 03:45 04:00 Temperature 98.0 F Pulse Rate 74 75 72 Pulse Rate [ Bilateral Throughout] Respiratory 11 L 19 15 Rate Respiratory Rate [Bilateral Throughout] Blood Pressure 106/49 97/59 114/50 O2 Sat by Pulse 98 87 95 Oximetry 06/19/17 06/19/17 06/19/17 04:15 04:31 04:39 Temperature Pulse Rate 74 74 Pulse Rate [ Bilateral Throughout] Respiratory 17 11 L 19 Rate Respiratory Rate [Bilateral Throughout] Blood Pressure 106/45 107/49 O2 Sat by Pulse 96 95 93 Oximetry 06/19/17 06/19/17 06/19/17 04:45 05:01 05:15 Temperature Pulse Rate 75 82 79 Pulse Rate [ Bilateral Throughout] Respiratory 13 12 12 Rate Respiratory Rate [Bilateral Throughout] Blood Pressure 100/52 100/52 66/39 O2 Sat by Pulse 100 95 85 Oximetry 06/19/17 06/19/17 06/19/17 05:31 05:45 06:01 Temperature Pulse Rate 81 79 78 Pulse Rate [ Bilateral Throughout] Respiratory 12 24 17 Rate Respiratory Rate [Bilateral Throughout] Blood Pressure 109/54 108/56 108/56 O2 Sat by Pulse 93 95 96 Oximetry 06/19/17 06/19/17 06/19/17 06:15 06:16 06:30 Temperature Pulse Rate 80 70 Pulse Rate [ Bilateral Throughout] Respiratory 20 22 23 Rate Respiratory Rate [Bilateral Throughout] Blood Pressure 108/56 102/43 O2 Sat by Pulse 52 L 99 Oximetry 06/19/17 06/19/17 06/19/17 06:45 07:00 07:15 Temperature Pulse Rate 70 72 72 Pulse Rate [ Bilateral Throughout] Respiratory 14 15 15 Rate Respiratory Rate [Bilateral Throughout] Blood Pressure 102/52 111/45 104/55 O2 Sat by Pulse 100 100 100 Oximetry 06/19/17 06/19/17 06/19/17 07:30 07:45 08:00 Temperature 97.8 F Pulse Rate 68 68 69 Pulse Rate [ Bilateral Throughout] Respiratory 14 14 13 Rate Respiratory Rate [Bilateral Throughout] Blood Pressure 100/41 111/48 92/44 O2 Sat by Pulse 100 98 99 Oximetry 06/19/17 06/19/17 06/19/17 08:15 08:30 08:45 Temperature Pulse Rate 70 69 69 Pulse Rate [ Bilateral Throughout] Respiratory 14 14 14 Rate Respiratory Rate [Bilateral Throughout] Blood Pressure 84/42 83/42 97/45 O2 Sat by Pulse 99 98 98 Oximetry 06/19/17 06/19/17 06/19/17 08:59 09:00 09:01 Temperature Pulse Rate 76 Pulse Rate [ 74 Bilateral Throughout] Respiratory 18 17 Rate Respiratory 20 Rate [Bilateral Throughout] Blood Pressure 97/48 84/58 O2 Sat by Pulse 98 97 98 Oximetry 06/19/17 06/19/17 06/19/17 09:14 09:15 09:31 Temperature Pulse Rate 78 77 Pulse Rate [ 79 Bilateral Throughout] Respiratory 17 10 L Rate Respiratory 20 Rate [Bilateral Throughout] Blood Pressure 104/57 102/44 O2 Sat by Pulse 97 95 Oximetry 06/19/17 06/19/17 06/19/17 09:46 10:00 10:01 Temperature Pulse Rate 78 82 Pulse Rate [ Bilateral Throughout] Respiratory 15 18 20 Rate Respiratory Rate [Bilateral Throughout] Blood Pressure 109/40 109/40 O2 Sat by Pulse 92 95 95 Oximetry 06/19/17 06/19/17 06/19/17 10:15 10:30 10:45 Temperature Pulse Rate 76 70 70 Pulse Rate [ Bilateral Throughout] Respiratory 20 15 32 H Rate Respiratory Rate [Bilateral Throughout] Blood Pressure 98/44 90/44 78/37 O2 Sat by Pulse 94 97 97 Oximetry 06/19/17 06/19/17 06/19/17 11:00 11:12 12:27 Temperature Pulse Rate 67 Pulse Rate [ 94 H Bilateral Throughout] Respiratory 29 H 18 Rate Respiratory 16 Rate [Bilateral Throughout] Blood Pressure 82/37 149/67 O2 Sat by Pulse 97 Oximetry Constitutional: other (somnolent, arousable) Eyes: non-icteric ENT: oropharynx moist Neck: supple Effort: mildly labored Ascultation: Bilateral: wheezes (faint expiratory bilaterally with prolonged expiratory phase) Cardiovascular: regular rate and rhythm (no mrg) Gastrointestinal: normoactive bowel sounds, soft, non-tender, non-distended Integumentary: normal Extremities: no cyanosis, no edema, pink and warm Neurologic: non-focal exam (moves all extremities), pupils equal and round, CN II-XII normal, other (confused, somnolent, moans to questions, follows basic commands) Psychiatric: other (not able to assess) CBC and BMP: 06/19/17 04:50 06/19/17 04:50 ABG, PT/INR, D-dimer: ABG POC ABG pH 7.368 (7.35-7.45) 06/18/17 09:25 POC ABG pCO2 41.5 (35-45) 06/18/17 09:25 POC ABG pO2 72 (80-105) L 06/18/17 09:25 POC ABG HCO3 23.9 06/18/17 09:25 POC ABG Total CO2 25 06/18/17 09:25 POC ABG O2 Sat 94 06/18/17 09:25 PT/INR, D-dimer PT 16.9 Sec. (12.2-14.9) H 06/15/17 20:21 INR 1.31 (0.87-1.13) H 06/15/17 20:21 D-Dimer 985.05 ng/mlDDU (0-234) H 06/15/17 20:21 Abnormal lab findings: Abnormal Labs 06/15/17 06/15/17 06/15/17 17:52 19:00 19:00 WBC 3.7 L RBC 3.25 L Hgb Hct RDW 15.8 H Lymph % (Auto) [place] % (Auto) 7.7 H Lymph # 0.9 L Seg Neutrophils % PT INR D-Dimer POC ABG pH POC ABG pCO2 POC ABG pO2 VBG pH Sodium Chloride 96.3 L BUN 32 H Creatinine 3.5 H Glucose 428 H POC Glucose > 500 H Hemoglobin A1c Calcium Direct Bilirubin AST ALT Alkaline Phosphatase Total Creatine Kinase C-Reactive Protein NT-Pro-B Natriuret Pep Albumin Ur Specific [place] Urine WBC (Auto) U Epithel Cells (Auto) 06/15/17 06/15/17 06/15/17 19:00 19:35 20:00 WBC RBC Hgb Hct RDW Lymph % (Auto) [place] % (Auto) Lymph # Seg Neutrophils % PT INR D-Dimer POC ABG pH POC ABG pCO2 POC ABG pO2 VBG pH 7.261 L Sodium Chloride BUN Creatinine Glucose POC Glucose 371 H 384 H Hemoglobin A1c Calcium Direct Bilirubin AST ALT Alkaline Phosphatase Total Creatine Kinase C-Reactive Protein NT-Pro-B Natriuret Pep Albumin Ur Specific [place] Urine WBC (Auto) U Epithel Cells (Auto) 06/15/17 06/15/17 06/15/17 20:21 20:21 20:21 WBC RBC Hgb Hct RDW Lymph % (Auto) [place] % (Auto) Lymph # Seg Neutrophils % PT 16.9 H INR 1.31 H D-Dimer 985.05 H POC ABG pH POC ABG pCO2 POC ABG pO2 VBG pH Sodium Chloride BUN Creatinine Glucose POC Glucose Hemoglobin A1c Calcium Direct Bilirubin AST ALT Alkaline Phosphatase Total Creatine Kinase 147 H C-Reactive Protein NT-Pro-B Natriuret Pep 7290 H Albumin Ur Specific [place] Urine WBC (Auto) U Epithel Cells (Auto) 06/15/17 06/16/17 06/16/17 Unknown 10:13 13:23 WBC RBC Hgb Hct RDW Lymph % (Auto) [place] % (Auto) Lymph # Seg Neutrophils % PT INR D-Dimer POC ABG pH POC ABG pCO2 POC ABG pO2 VBG pH Sodium Chloride BUN Creatinine Glucose POC Glucose 290 H 301 H Hemoglobin A1c Calcium Direct Bilirubin AST ALT Alkaline Phosphatase Total Creatine Kinase C-Reactive Protein NT-Pro-B Natriuret Pep Albumin Ur Specific [place] Urine WBC (Auto) 72.0 H U Epithel Cells (Auto) 06/16/17 06/17/17 06/17/17 17:36 00:16 00:35 WBC RBC Hgb Hct RDW Lymph % (Auto) [place] % (Auto) Lymph # Seg Neutrophils % PT INR D-Dimer POC ABG pH POC ABG pCO2 POC ABG pO2 VBG pH Sodium Chloride BUN Creatinine Glucose POC Glucose 120 H < 40 L 188 H Hemoglobin A1c Calcium Direct Bilirubin AST ALT Alkaline Phosphatase Total Creatine Kinase C-Reactive Protein NT-Pro-B Natriuret Pep Albumin Ur Specific [place] Urine WBC (Auto) U Epithel Cells (Auto) 06/17/17 06/17/17 06/17/17 03:19 03:19 03:19 WBC RBC 3.31 L Hgb Hct RDW 16.0 H Lymph % (Auto) [place] % (Auto) Lymph # 1.1 L Seg Neutrophils % 76.0 H PT INR D-Dimer POC ABG pH POC ABG pCO2 POC ABG pO2 VBG pH Sodium Chloride BUN 45 H Creatinine 4.5 H Glucose 192 H POC Glucose Hemoglobin A1c 11.5 H Calcium 8.1 L Direct Bilirubin AST ALT Alkaline Phosphatase Total Creatine Kinase C-Reactive Protein NT-Pro-B Natriuret Pep Albumin Ur Specific [place] Urine WBC (Auto) U Epithel Cells (Auto) 06/17/17 06/17/17 06/17/17 03:51 06:44 11:15 WBC RBC Hgb Hct RDW Lymph % (Auto) [place] % (Auto) Lymph # Seg Neutrophils % PT INR D-Dimer POC ABG pH POC ABG pCO2 POC ABG pO2 VBG pH Sodium Chloride BUN Creatinine Glucose POC Glucose 184 H 326 H 380 H Hemoglobin A1c Calcium Direct Bilirubin AST ALT Alkaline Phosphatase Total Creatine Kinase C-Reactive Protein NT-Pro-B Natriuret Pep Albumin Ur Specific [place] Urine WBC (Auto) U Epithel Cells (Auto) 06/17/17 06/17/17 06/18/17 17:56 23:35 00:02 WBC RBC Hgb Hct RDW Lymph % (Auto) [place] % (Auto) Lymph # Seg Neutrophils % PT INR D-Dimer POC ABG pH 7.314 L POC ABG pCO2 48.8 H POC ABG pO2 53 L VBG pH Sodium Chloride BUN Creatinine Glucose POC Glucose 59 L < 40 L Hemoglobin A1c Calcium Direct Bilirubin AST ALT Alkaline Phosphatase Total Creatine Kinase C-Reactive Protein NT-Pro-B Natriuret Pep Albumin Ur Specific [place] Urine WBC (Auto) U Epithel Cells (Auto) 06/18/17 06/18/17 06/18/17 00:08 00:25 00:43 WBC RBC Hgb Hct RDW Lymph % (Auto) [place] % (Auto) Lymph # Seg Neutrophils % PT INR D-Dimer POC ABG pH POC ABG pCO2 POC ABG pO2 VBG pH Sodium 136 L Chloride 95.8 L BUN 21 H Creatinine 2.9 H Glucose 131 H POC Glucose 151 H Hemoglobin A1c Calcium 8.2 L Direct Bilirubin AST ALT Alkaline Phosphatase Total Creatine Kinase C-Reactive Protein NT-Pro-B Natriuret Pep Albumin Ur Specific [place] 1.041 H Urine WBC (Auto) 67.0 H U Epithel Cells (Auto) 24.0 H 06/18/17 06/18/17 06/18/17 02:11 05:00 05:00 WBC RBC 3.22 L Hgb Hct RDW 16.2 H Lymph % (Auto) 10.3 L [place] % (Auto) Lymph # 0.7 L Seg Neutrophils % 81.3 H PT INR D-Dimer POC ABG pH POC ABG pCO2 POC ABG pO2 VBG pH Sodium Chloride BUN 21 H Creatinine 3.2 H Glucose 159 H POC Glucose 183 H Hemoglobin A1c Calcium 7.9 L Direct Bilirubin 0.3 H AST 73 H ALT 112 H Alkaline Phosphatase 207 H Total Creatine Kinase C-Reactive Protein NT-Pro-B Natriuret Pep Albumin 3.4 L Ur Specific [place] Urine WBC (Auto) U Epithel Cells (Auto) 06/18/17 06/18/17 06/18/17 05:31 09:25 12:30 WBC RBC Hgb Hct RDW Lymph % (Auto) [place] % (Auto) Lymph # Seg Neutrophils % PT INR D-Dimer POC ABG pH POC ABG pCO2 POC ABG pO2 72 L VBG pH Sodium Chloride BUN Creatinine Glucose POC Glucose 181 H 286 H Hemoglobin A1c Calcium Direct Bilirubin AST ALT Alkaline Phosphatase Total Creatine Kinase C-Reactive Protein NT-Pro-B Natriuret Pep Albumin Ur Specific [place] Urine WBC (Auto) U Epithel Cells (Auto) 06/18/17 06/18/17 06/18/17 13:57 21:30 22:45 WBC RBC Hgb Hct RDW Lymph % (Auto) [place] % (Auto) Lymph # Seg Neutrophils % PT INR D-Dimer POC ABG pH POC ABG pCO2 POC ABG pO2 VBG pH Sodium Chloride BUN Creatinine Glucose POC Glucose 67 L 206 H Hemoglobin A1c Calcium Direct Bilirubin AST ALT Alkaline Phosphatase Total Creatine Kinase C-Reactive Protein 2.50 H NT-Pro-B Natriuret Pep Albumin Ur Specific [place] Urine WBC (Auto) U Epithel Cells (Auto) 06/19/17 06/19/17 06/19/17 00:56 04:50 04:50 WBC RBC 3.02 L Hgb 9.7 L Hct 29.4 L RDW 16.9 H Lymph % (Auto) 5.9 L [place] % (Auto) Lymph # 0.5 L Seg Neutrophils % 87.3 H PT INR D-Dimer POC ABG pH POC ABG pCO2 POC ABG pO2 VBG pH Sodium 136 L Chloride 96.2 L BUN 27 H Creatinine 4.3 H Glucose 111 H POC Glucose 150 H Hemoglobin A1c Calcium 8.0 L Direct Bilirubin AST 51 H ALT 95 H Alkaline Phosphatase 236 H Total Creatine Kinase C-Reactive Protein NT-Pro-B Natriuret Pep Albumin 3.3 L Ur Specific [place] Urine WBC (Auto) U Epithel Cells (Auto) 06/19/17 06/19/17 07:47 12:36 WBC RBC Hgb Hct RDW Lymph % (Auto) [place] % (Auto) Lymph # Seg Neutrophils % PT INR D-Dimer POC ABG pH POC ABG pCO2 POC ABG pO2 VBG pH Sodium Chloride BUN Creatinine Glucose POC Glucose 108 H 181 H Hemoglobin A1c Calcium Direct Bilirubin AST ALT Alkaline Phosphatase Total Creatine Kinase C-Reactive Protein NT-Pro-B Natriuret Pep Albumin Ur Specific [place] Urine WBC (Auto) U Epithel Cells (Auto) Chest x-ray: report reviewed, image reviewed CT scan - chest: report reviewed, image reviewed
[2017-06-19 15:20] LABS: ISTAT Base Excess -6; ISTAT HCO3 21.5; ISTAT PCO2 48.3 (35-45); ISTAT PH 7.256 (7.35-7.45); ISTAT PO2 62 (80-105); ISTAT SO2 88; ISTAT TCO2 23
[2017-06-19] MEDS ORDERED: NACL 0.9% 500 ML 500 ML IV ONE (15:42)
--- NOTE | 2017-06-19 15:47 | Event Note ---
Date: 06/19/17 The patient is lethargic, and hypotensive Response to deep stimuli and verbal commands by opening eyes Normal saline fluid bolus, Levophed drip Transfer to ICU, ICU charge nurse informed Planner Intern contacted Plan of care discussed with the patient's at the bedside CODE STATUS discussed. Full code
[2017-06-19] MEDS ORDERED: LEVOPHED DRIP 4 MG/NS 250 ML 4 MG/250 ML BAG IV SCH (16:00)
--- NOTE | 2017-06-19 16:03 | XRay Report ---
AP CHEST :06/19/17 CLINICAL: Shortness of breath. COMPARISON:09/19/16 FINDINGS: A double lumen Vas-Cath with tips in the SVC.The lungs are underexpanded. Cardiomegaly and central vascular congestion not significantly changed compared to the prior exam. Elevation of the right hemidiaphragm is seen on the last exam. IMPRESSION: CHF with cardiomegaly, pulmonary venous hypertension and perihilar pulmonary edema.
[2017-06-19] MEDS ORDERED: NACL 0.9% 500 ML 500 ML ONE (16:35)
[2017-06-19 18:29] LABS: ISTAT Base Excess -5; ISTAT PCO2 50.5 (35-45); ISTAT PH 7.247 (7.35-7.45); ISTAT PO2 108 (80-105); ISTAT SO2 97; ISTAT TCO2 24
--- NOTE | 2017-06-19 20:05 | Procedure Note ---
Date of procedure: 06/19/17 (Left IJ Central line placement) Pre-op diagnosis: hypotension Post-op diagnosis: same Procedure: Central line placement left IJ Patient was examined and site selected based on vas-cath in right IJ. Preliminary non-sterile US done to evaluate for Left IJ. Time out was done with nurses. Sterile gown and cap placed. Sterile prep of the left neck after patient secured with restraints due to combative toward procedure efforts. Chlorhexidine applied and drape placed. Site injected with lidocaine and US sterile dressing applied. Aspiration needle inserted and US-guided to left IJ. Venous blood aspirated and guide wire placed with no resistance. Dilator placed and incision made of skin. Triple lumen cather inserted to 12 cm and all lines aspirated and flushed. Line secured with sutures. EBL 10 mL. No complications. Patient tolerated without difficulty. Anesthesia: local Surgeon: VALERIE POST Estimated blood loss: minimal Pathology: none Specimen disposition: other (not applicable.) Condition: critical Disposition: ICU
--- NOTE | 2017-06-19 21:30 | XRay Report ---
FINAL REPORT EXAM: XR CHEST 1V AP HISTORY: S/P CVL placement TECHNIQUE: upright single view chest PRIORS: None. FINDINGS: Cardiac silhouette is enlarged. No focal pulmonary infiltrate is identified. No pleural fluid collection seen. Pulmonary vasculature is unremarkable. There is a right-sided dialysis catheter catheter tips projection over the caval atrial junction. There is a left IJ catheter with tip overlying the brachiocephalic. There is no evidence for pneumothorax IMPRESSION: Cardiomegaly Central venous catheters as noted. The left IJ catheter overlies the brachiocephalic vein
[2017-06-19] MEDS: LEVOPHED 8 MG in NACL 0.9% 250ML 242 ML IV SCH (21:59)
[2017-06-19] MEDS: HEPARIN IV PRN (23:38)
[2017-06-20] MEDS: TYLENOL PO PRN (00:53)
[2017-06-20] MEDS: NEURONTIN PO SCH ×2 (00:53→10:40)
[2017-06-20] MEDS: NOVOLOG SUB-Q SCH ×5 (01:00→21:44)
[2017-06-20] MEDS: DUONEB *Not for PRN Use IH SCH ×4 (03:51→21:19)
[2017-06-20] MEDS: ZOSYN/NS 2.25 GM/50ML 2.25 GM/50 ML BAG IV SCH ×3 (06:50→21:26)
[2017-06-20 06:51] LABS: Basophils % (Auto) 0.2 % (0.0-1.8); Eosinophils % (Auto) 0.2 % (0.0-4.3); Hematocrit 26.8 % (30.3-42.9); Hemoglobin 8.7 gm/dl (10.1-14.3); Mean Corpuscular HGB Conc 33 % (30-34); Mean Corpuscular Hemoglobin 31 pg (28-32); Mean Corpuscular Volume 96 fl (79-97); Red Blood Count 2.78 M/mm3 (3.65-5.03); Red Cell Distribution Width 17.1 % (13.2-15.2); White Blood Count 11.7 K/mm3 (4.5-11.0)
[2017-06-20 06:52] LABS: Platelet Count 164 K/mm3 (140-440)
[2017-06-20 07:11] LABS: Calcium 7.7 mg/dL (8.4-10.2); Chloride 98.4 mmol/L (98-107); Magnesium 1.7 mg/dL (1.7-2.3); Potassium 4.1 mmol/L (3.6-5.0)
[2017-06-20] MEDS: LEVOPHED 8 MG in NACL 0.9% 250ML 242 ML IV SCH ×3 (09:04→21:24)
--- NOTE | 2017-06-20 09:15 | Progress Note ---
Assessment and Plan Assessment and plan: --Septic shock; on Levophed, IV fluids, closely monitor --End-stage renal disease on hemodialysis; dialysis per schedule, nephrology consulted --Sepsis secondary to urinary tract infection; continue empiric antibiotics, follow cultures, ID if needed --Type 2 diabetes mellitus; uncontrolled , slight insulin was not given by the nurse for unknown reason Accu-Chek sliding scale coverage and ADA diet and insulin, A1c 11.5, possible home health nurse at discharge --CHF /acute diastolic CHF, left ventricle function ejection [id number]%, cannot use diuretics in view of hypotension --DVT prophylaxis; with heparin --Full CODE STATUS Closely monitor the patient and adjust the management as needed If blood pressures remain stable , may transfer out of ICU to the floor Critical care time 31 minutes The high probability of a clinically significant, sudden or life threatening deterioration of the [ID,cardio ,renal] system(s) required my full and direct attention, intervention and personal management. The aggregate critical care time was [31 ] minutes. This time is in addition to time spent performing reported procedures but includes the following: [x] Data Review and interpretation [x] Patient assessment and monitoring of vital signs [x] Documentation, counseling [x] Medication orders and management History Interval history: Patient seen an examined medical records reviewed No events reported by the nursing staff Remains hypotensive on Levophed Looks chronically ill and cachectic Hospitalist Physical - Constitutional Vitals: Temp Pulse Resp BP Pulse Ox 98.5 F 59 L 16 107/46 99 06/20/17 03:38 06/20/17 07:45 06/20/17 07:45 06/20/17 07:45 06/20/17 07:45 General appearance: Present: no acute distress, well-nourished, other (lethergic ) - EENT Eyes: Present: PERRL, EOM intact - Neck Neck: Present: supple, normal ROM - Respiratory Respiratory effort: normal Respiratory: negative: rales, rhonchi, wheezing - Cardiovascular Rhythm: regular Heart Sounds: Present: S1 & S2 - Extremities Extremities: no ischemia, pulses intact, pulses symmetrical Peripheral Pulses: within normal limits - Abdominal General gastrointestinal: soft, non-tender, normal bowel sounds - Integumentary Integumentary: Present: clear, warm - Psychiatric Psychiatric: appropriate mood/affect, cooperative - Neurologic Neurologic: CNII-XII intact, moves all extremities Results - Labs CBC & Chem 7: 06/20/17 06:00 06/20/17 06:00 Labs: Laboratory Last Values WBC 11.7 K/mm3 (4.5-11.0) H 06/20/17 06:00 RBC 2.78 M/mm3 (3.65-5.03) L 06/20/17 06:00 Hgb 8.7 gm/dl (10.1-14.3) L 06/20/17 06:00 Hct 26.8 % (30.3-42.9) L 06/20/17 06:00 MCV 96 fl (79-97) 06/20/17 06:00 MCH 31 pg (28-32) 06/20/17 06:00 MCHC 33 % (30-34) 06/20/17 06:00 RDW 17.1 % (13.2-15.2) H 06/20/17 06:00 Plt Count 164 K/mm3 (140-440) 06/20/17 06:00 Lymph % (Auto) 5.6 % (13.4-35.0) L 06/20/17 06:00 [place] % (Auto) 7.9 % (0.0-7.3) H 06/20/17 06:00 Eos % (Auto) 0.2 % (0.0-4.3) 06/20/17 06:00 Baso % (Auto) 0.2 % (0.0-1.8) 06/20/17 06:00 Lymph # 0.7 K/mm3 (1.2-5.4) L 06/20/17 06:00 [place] # 0.9 K/mm3 (0.0-0.8) H 06/20/17 06:00 Eos # 0.0 K/mm3 (0.0-0.4) 06/20/17 06:00 Baso # 0.0 K/mm3 (0.0-0.1) 06/20/17 06:00 Seg Neutrophils % 86.1 % (40.0-70.0) H 06/20/17 06:00 Seg Neutrophils # 10.0 K/mm3 (1.8-7.7) H 06/20/17 06:00 PT 16.9 Sec. (12.2-14.9) H 06/15/17 20:21 INR 1.31 (0.87-1.13) H 06/15/17 20:21 APTT 35.3 Sec. (24.2-36.6) 06/15/17 20:21 D-Dimer 985.05 ng/mlDDU (0-234) H 06/15/17 20:21 POC ABG pH 7.247 (7.35-7.45) L 06/19/17 18:23 POC ABG pCO2 50.5 (35-45) H 06/19/17 18:23 POC ABG pO2 108 (80-105) H 06/19/17 18:23 POC ABG HCO3 22.0 06/19/17 18:23 POC ABG Total CO2 24 06/19/17 18:23 POC ABG O2 Sat 97 06/19/17 18:23 POC ABG Base Excess -5 06/19/17 18:23 VBG pH 7.261 (7.320-7.420) L 06/15/17 19:00 FiO2 100 % 06/19/17 18:23 Sodium 139 mmol/L (137-145) 06/20/17 06:00 Potassium 4.1 mmol/L (3.6-5.0) 06/20/17 06:00 Chloride 98.4 mmol/L (98-107) 06/20/17 06:00 Carbon Dioxide 26 mmol/L (22-30) 06/20/17 06:00 Anion Gap 19 mmol/L 06/20/17 06:00 BUN 17 mg/dL (7-17) 06/20/17 06:00 Creatinine 3.0 mg/dL (0.7-1.2) H 06/20/17 06:00 Estimated GFR 18 ml/min 06/20/17 06:00 BUN/Creatinine Ratio 6 % 06/20/17 06:00 Glucose 167 mg/dL (65-100) H 06/20/17 06:00 POC Glucose 199 (70-105) H 06/20/17 09:01 Hemoglobin A1c 11.5 % (4-6) H 06/17/17 03:19 Lactic Acid 1.50 mmol/L (0.7-2.0) 06/17/17 15:12 Calcium 7.7 mg/dL (8.4-10.2) L 06/20/17 06:00 Magnesium 1.70 mg/dL (1.7-2.3) 06/20/17 06:00 Total Bilirubin 1.00 mg/dL (0.1-1.2) 06/19/17 04:50 Direct Bilirubin 0.3 mg/dL (0-0.2) H 06/18/17 05:00 Indirect Bilirubin 0.3 mg/dL 06/18/17 05:00 AST 51 units/L (5-40) H 06/19/17 04:50 ALT 95 units/L (7-56) H 06/19/17 04:50 Alkaline Phosphatase 236 units/L (35-129) H 06/19/17 04:50 Total Creatine Kinase 124 units/L (30-135) 06/16/17 10:25 CK-MB (CK-2) 1.9 ng/mL (0.0-4.0) 06/16/17 10:25 CK-MB (CK-2) Rel Index 1.5 (0-4) 06/16/17 10:25 Troponin T < 0.010 ng/mL (0.00-0.029) 06/16/17 10:25 C-Reactive Protein 2.50 mg/dL (0.00-1.30) H 06/18/17 13:57 NT-Pro-B Natriuret Pep 7290 pg/mL (0-900) H 06/15/17 20:21 Total Protein 6.3 g/dL (6.3-8.2) 06/19/17 04:50 Albumin 3.3 g/dL (3.9-5) L 06/19/17 04:50 Albumin/Globulin Ratio 1.1 % 06/19/17 04:50 TSH 0.415 mlU/mL (0.270-4.200) 06/17/17 15:12 Urine Color [place] (Yellow) 06/18/17 00:25 Urine Turbidity Slightly cloudy (Clear) 06/18/17 00:25 Urine pH 5.0 (5.0-7.0) 06/18/17 00:25 Ur Specific [place] 1.041 (1.003-1.030) H 06/18/17 00:25 Urine Protein 100 mg/dl mg/dL (Negative) 06/18/17 00:25 Urine Glucose (UA) 50 mg/dL (Negative) 06/18/17 00:25 Urine Ketones Neg mg/dL (Negative) 06/18/17 00:25 Urine Blood Sm (Negative) 06/18/17 00:25 Urine Nitrite Neg (Negative) 06/18/17 00:25 Urine Bilirubin Neg (Negative) 06/18/17 00:25 Urine Ictotest Negative (Negative) 06/15/17 Unknown Urine Urobilinogen < 2.0 mg/dL (<2.0) 06/18/17 00:25 Ur Leukocyte Esterase Mod (Negative) 06/18/17 00:25 Urine WBC (Auto) 67.0 /HPF (0.0-6.0) H 06/18/17 00:25 Urine RBC (Auto) 25.0 /HPF (0.0-6.0) 06/18/17 00:25 U Epithel Cells (Auto) 24.0 /HPF (0-13.0) H 06/18/17 00:25 Urine Bacteria (Auto) 1+ /HPF (Negative) 06/18/17 00:25 Urine WBC Clumps 2+ /HPF 06/18/17 00:25 Amorphous Crystals 2+ 06/18/17 00:25 Hyaline Casts 3 /LPF 06/18/17 00:25 Urine Mucus Few /HPF 06/18/17 00:25 Rheumatoid Factor < 10 IU/ml (0-13) 06/18/17 14:51 HIV 1&2 Antibody Rapid Non react (Non React) 06/18/17 14:51 HIV P24 Antigen Non react (Non React) 06/18/17 14:51
[2017-06-20] MEDS ORDERED: PROVENTIL IH PRN (09:45)
[2017-06-20] MEDS: PROTONIX PO SCH (10:40)
[2017-06-20] MEDS: LOVENOX SUB-Q SCH (10:40)
[2017-06-20 10:58] LABS: ISTAT Base Excess -1; ISTAT PCO2 42.4 (35-45); ISTAT PO2 57 (80-105); ISTAT SO2 88; ISTAT TCO2 25
--- NOTE | 2017-06-20 12:06 | Progress Note ---
Assessment and Plan - Patient Problems (1) Septic shock Current Visit: No Status: Acute Plan to address problem: cont empiric ABXs, vasopressor support to keep MAP > 65mmHg. BCx/UCx NGTD (2) Acute UTI Current Visit: Yes Status: Acute Plan to address problem: cont ABXs, dose renally adjusted (3) ESRD (end stage renal disease) Current Visit: No Status: Acute Plan to address problem: cont HD on MWF schedule as tolerated (4) Anemia in chronic kidney disease Current Visit: No Status: Acute Plan to address problem: start EPO with HD Subjective Date of service: 06/20/17 Principal diagnosis: sepsis, ESRD Interval history: Pt weak, confused, remains on vasopressor support with levo at 20mcg/min Objective - Vital Signs Vital signs: Vital Signs - 12hr 06/20/17 06/20/17 06/20/17 00:08 00:15 00:31 Temperature Pulse Rate 84 86 82 Pulse Rate [ Bilateral Throughout] Respiratory 24 15 15 Rate Respiratory Rate [Bilateral Throughout] Blood Pressure 93/63 122/58 122/58 O2 Sat by Pulse 100 100 100 Oximetry 06/20/17 06/20/17 06/20/17 00:45 01:01 01:15 Temperature Pulse Rate 81 81 78 Pulse Rate [ Bilateral Throughout] Respiratory 18 14 15 Rate Respiratory Rate [Bilateral Throughout] Blood Pressure 117/54 117/54 117/54 O2 Sat by Pulse 100 100 100 Oximetry 06/20/17 06/20/17 06/20/17 01:30 01:45 02:01 Temperature Pulse Rate 68 77 71 Pulse Rate [ Bilateral Throughout] Respiratory 13 11 L 14 Rate Respiratory Rate [Bilateral Throughout] Blood Pressure 121/52 119/45 115/39 O2 Sat by Pulse 99 100 99 Oximetry 06/20/17 06/20/17 06/20/17 02:15 02:30 02:45 Temperature Pulse Rate 62 62 64 Pulse Rate [ Bilateral Throughout] Respiratory 15 16 13 Rate Respiratory Rate [Bilateral Throughout] Blood Pressure 99/44 97/42 101/47 O2 Sat by Pulse 100 100 100 Oximetry 06/20/17 06/20/17 06/20/17 03:00 03:15 03:30 Temperature Pulse Rate 58 L 65 62 Pulse Rate [ Bilateral Throughout] Respiratory 13 15 13 Rate Respiratory Rate [Bilateral Throughout] Blood Pressure 102/47 87/35 101/47 O2 Sat by Pulse 99 100 99 Oximetry 06/20/17 06/20/17 06/20/17 03:38 03:45 03:51 Temperature 98.5 F Pulse Rate 66 Pulse Rate [ 64 Bilateral Throughout] Respiratory 15 Rate Respiratory 22 Rate [Bilateral Throughout] Blood Pressure 95/44 O2 Sat by Pulse 99 Oximetry 06/20/17 06/20/17 06/20/17 03:52 04:00 04:11 Temperature Pulse Rate 60 65 Pulse Rate [ 65 Bilateral Throughout] Respiratory 22 14 Rate Respiratory 22 Rate [Bilateral Throughout] Blood Pressure 95/44 94/42 O2 Sat by Pulse 100 95 Oximetry 06/20/17 06/20/17 06/20/17 04:15 04:30 04:45 Temperature Pulse Rate 66 63 65 Pulse Rate [ Bilateral Throughout] Respiratory 16 14 14 Rate Respiratory Rate [Bilateral Throughout] Blood Pressure 102/41 93/38 99/40 O2 Sat by Pulse 96 97 98 Oximetry 06/20/17 06/20/17 06/20/17 05:00 05:15 05:30 Temperature Pulse Rate 71 72 66 Pulse Rate [ Bilateral Throughout] Respiratory 14 15 11 L Rate Respiratory Rate [Bilateral Throughout] Blood Pressure 104/39 98/40 94/48 O2 Sat by Pulse 98 98 97 Oximetry 06/20/17 06/20/17 06/20/17 05:45 06:01 06:15 Temperature Pulse Rate 67 68 65 Pulse Rate [ Bilateral Throughout] Respiratory 13 15 15 Rate Respiratory Rate [Bilateral Throughout] Blood Pressure 101/45 143/116 98/40 O2 Sat by Pulse 96 97 95 Oximetry 06/20/17 06/20/17 06/20/17 06:31 06:45 07:00 Temperature Pulse Rate 75 73 75 Pulse Rate [ Bilateral Throughout] Respiratory 18 19 19 Rate Respiratory Rate [Bilateral Throughout] Blood Pressure 98/40 98/40 107/51 O2 Sat by Pulse 99 98 96 Oximetry 06/20/17 06/20/17 06/20/17 07:10 07:15 07:30 Temperature Pulse Rate 70 64 Pulse Rate [ Bilateral Throughout] Respiratory 14 17 12 Rate Respiratory Rate [Bilateral Throughout] Blood Pressure 107/45 110/48 O2 Sat by Pulse 96 98 96 Oximetry 06/20/17 06/20/17 06/20/17 07:45 08:00 08:15 Temperature 98.0 F Pulse Rate 59 L 64 58 L Pulse Rate [ Bilateral Throughout] Respiratory 16 15 18 Rate Respiratory Rate [Bilateral Throughout] Blood Pressure 107/46 112/50 105/46 O2 Sat by Pulse 99 99 99 Oximetry 06/20/17 06/20/17 06/20/17 08:30 08:45 09:00 Temperature Pulse Rate 62 57 L 64 Pulse Rate [ Bilateral Throughout] Respiratory 16 14 16 Rate Respiratory Rate [Bilateral Throughout] Blood Pressure 112/49 84/40 69/34 O2 Sat by Pulse 98 97 98 Oximetry 06/20/17 06/20/17 06/20/17 09:15 09:30 09:32 Temperature Pulse Rate 59 L 57 L 70 Pulse Rate [ Bilateral Throughout] Respiratory 16 14 22 Rate Respiratory Rate [Bilateral Throughout] Blood Pressure 118/57 122/49 122/49 O2 Sat by Pulse 96 96 98 Oximetry 06/20/17 06/20/17 06/20/17 09:39 09:43 09:45 Temperature Pulse Rate 86 Pulse Rate [ 75 Bilateral Throughout] Respiratory 20 Rate Respiratory 18 Rate [Bilateral Throughout] Blood Pressure 122/49 O2 Sat by Pulse 98 95 Oximetry 06/20/17 06/20/17 06/20/17 09:51 10:00 10:15 Temperature Pulse Rate 81 74 Pulse Rate [ 77 Bilateral Throughout] Respiratory 17 21 Rate Respiratory 16 Rate [Bilateral Throughout] Blood Pressure 123/57 123/57 O2 Sat by Pulse 96 95 Oximetry 06/20/17 06/20/17 06/20/17 10:31 10:45 10:53 Temperature Pulse Rate 76 76 Pulse Rate [ Bilateral Throughout] Respiratory 15 17 Rate Respiratory Rate [Bilateral Throughout] Blood Pressure 107/53 107/53 O2 Sat by Pulse 94 93 94 Oximetry 06/20/17 06/20/17 11:00 11:05 Temperature Pulse Rate 73 Pulse Rate [ Bilateral Throughout] Respiratory 20 18 Rate Respiratory Rate [Bilateral Throughout] Blood Pressure 117/45 O2 Sat by Pulse 98 98 Oximetry - General Appearance General appearance: well-nourished, appears stated age EENT: ATNC, PERRL, mucous membranes moist Neck: no JVD Respiratory: Present: Clear to Ascultation Cardiology: regular, S1S2 Gastrointestinal: normoactive bowel sounds Integumentary: no rash, other (no edema ) Neurologic: confused, disoriented - Lab 06/20/17 06:00 06/20/17 06:00 Most recent lab results Calcium 7.7 mg/dL (8.4-10.2) L 06/20/17 06:00 Magnesium 1.70 mg/dL (1.7-2.3) 06/20/17 06:00
--- NOTE | 2017-06-20 15:24 | Progress Note ---
Assessment and Plan Imp: 1. UTI 2. Severe sepsis with septic shock 3. ESRD 4. Acute respiratory failure, hypoxia and hypercapnea 5. Metabolic encephalopathy 6. RV failure/pulm HTN/TR, ? etiology Rec: 1. Complete course of Zosyn empirically; received a dose of Vanco 06/18/17 but no need to continue if cultures remain negative 2. Wean Levophed to keep MAP > 65; will add Midrodrine 2.5mg TID; f/u Cortisol level and consider empiric steroids if unable to wean from pressors (holding off today due to hyperglycemia issues) 3. TSH normal 4. Do not suspect ILD or pneumonia per CT chest 5. DVT PPx 6. Re: Echo findings, CTA chest negative 06/15/17, prior CT a/p showed normal liver; f/u HIV and CTD panel; would recommend outpatient PFTs +/- PSG if she recovers from current illness 7. BIPAP prn 8. Would try to limit IV narcotics if possible CCT 31 minutes Plan of care reviewed with family at bedside, they understand/agree Subjective Date of service: 06/20/17 Principal diagnosis: sepsis, ESRD Interval history: Transferred back to ICU. CVL placed by ED MD. Back on Levophed. Apparently underwent HD again. More alert, able to eat today, but remains confused. C/o back pain (has chronic back issues). Active Medications Acetaminophen (Tylenol) 650 mg PO Q4H PRN PRN Reason: Pain MILD(1-3)/Fever >100.5/ALVARADO Last Admin: 06/20/17 00:53 Dose: 650 mg Albuterol (Proventil) 2.5 mg IH Q4HRT PRN PRN Reason: Shortness Of Breath Albuterol/Ipratropium (Duoneb *Not For Prn Use*) 1 ampul IH TIDRT [facility] Last Admin: 06/20/17 14:43 Dose: 1 ampul Bisacodyl (Dulcolax) 10 mg MD QDAY PRN PRN Reason: Constipation unrelieved by MOM Dextrose (D50w (25gm) Vial) 25 gm IV PRN PRN PRN Reason: Hypoglycemia Enoxaparin Sodium (Lovenox) 30 mg SUB-Q QDAY [facility] Last Admin: 06/20/17 10:40 Dose: 30 mg Epoetin Pradeep (Epogen) 20,000 unit IV RAJENDRA MUNA Gabapentin (Neurontin) 300 mg PO BID [facility] Last Admin: 06/20/17 10:40 Dose: 300 mg Heparin Sodium (Porcine) (Heparin) 5,000 unit IV RAJENDRA PRN PRN Reason: dwell after dialysis Last Admin: 06/19/17 23:38 Dose: 5,000 unit Sodium Chloride (Nacl 0.9%) 100 mls @ 999 mls/hr IV RAJENDRA PRN PRN Reason: Hypotension Norepinephrine 8 mg/ Sodium (Chloride) 250 mls @ 3.75 mls/hr IV TITR MUNA; 2 MCG /MIN PRN Reason: Protocol Last Titration: 06/20/17 14:58 Dose: 28 mcg/min, 52.5 mls/hr Piperacillin Sod/Tazobactam Sod (Zosyn/Ns 2.25 Gm/50ml) 2.25 gm in 50 mls @ 100 mls/hr IV Q8HR [facility] Last Admin: 06/20/17 13:53 Dose: 100 mls/hr Insulin Aspart (Novolog) 0 units SUB-Q ACHS MUNA PRN Reason: Protocol Last Admin: 06/20/17 12:02 Dose: 3 units Midodrine (Proamatine) 2.5 mg PO Q8HR [facility] Miscellaneous Medication (Dorzolamide Hcl/Timolol Maleat [Dorzolamide-Timolol Eye Drops]) 10 ml OP QDAY [facility] Last Admin: 06/17/17 11:28 Dose: Not Given Morphine Sulfate (Morphine) 1 mg IV Q4H PRN PRN Reason: Pain, Moderate (4-6) Ondansetron HCl (Zofran) 4 mg IV Q8H PRN PRN Reason: N/V unrelieved by Stan Last Admin: 06/18/17 23:08 Dose: 4 mg Pantoprazole Sodium (Protonix) 40 mg PO QDAY [facility] Last Admin: 06/20/17 10:40 Dose: 40 mg Objective Vital Signs - 12hr 06/20/17 06/20/17 06/20/17 03:30 03:38 03:45 Temperature 98.5 F Pulse Rate 62 66 Pulse Rate [ Bilateral Throughout] Respiratory 13 15 Rate Respiratory Rate [Bilateral Throughout] Blood Pressure 101/47 95/44 O2 Sat by Pulse 99 99 Oximetry 06/20/17 06/20/17 06/20/17 03:51 03:52 04:00 Temperature Pulse Rate 60 65 Pulse Rate [ 64 Bilateral Throughout] Respiratory 22 14 Rate Respiratory 22 Rate [Bilateral Throughout] Blood Pressure 95/44 94/42 O2 Sat by Pulse 100 95 Oximetry 06/20/17 06/20/17 06/20/17 04:11 04:15 04:30 Temperature Pulse Rate 66 63 Pulse Rate [ 65 Bilateral Throughout] Respiratory 16 14 Rate Respiratory 22 Rate [Bilateral Throughout] Blood Pressure 102/41 93/38 O2 Sat by Pulse 96 97 Oximetry 06/20/17 06/20/17 06/20/17 04:45 05:00 05:15 Temperature Pulse Rate 65 71 72 Pulse Rate [ Bilateral Throughout] Respiratory 14 14 15 Rate Respiratory Rate [Bilateral Throughout] Blood Pressure 99/40 104/39 98/40 O2 Sat by Pulse 98 98 98 Oximetry 06/20/17 06/20/17 06/20/17 05:30 05:45 06:01 Temperature Pulse Rate 66 67 68 Pulse Rate [ Bilateral Throughout] Respiratory 11 L 13 15 Rate Respiratory Rate [Bilateral Throughout] Blood Pressure 94/48 101/45 143/116 O2 Sat by Pulse 97 96 97 Oximetry 06/20/17 06/20/17 06/20/17 06:15 06:31 06:45 Temperature Pulse Rate 65 75 73 Pulse Rate [ Bilateral Throughout] Respiratory 15 18 19 Rate Respiratory Rate [Bilateral Throughout] Blood Pressure 98/40 98/40 98/40 O2 Sat by Pulse 95 99 98 Oximetry 06/20/17 06/20/17 06/20/17 07:00 07:10 07:15 Temperature Pulse Rate 75 70 Pulse Rate [ Bilateral Throughout] Respiratory 19 14 17 Rate Respiratory Rate [Bilateral Throughout] Blood Pressure 107/51 107/45 O2 Sat by Pulse 96 96 98 Oximetry 06/20/17 06/20/17 06/20/17 07:30 07:45 08:00 Temperature 98.0 F Pulse Rate 64 59 L 64 Pulse Rate [ Bilateral Throughout] Respiratory 12 16 15 Rate Respiratory Rate [Bilateral Throughout] Blood Pressure 110/48 107/46 112/50 O2 Sat by Pulse 96 99 99 Oximetry 06/20/17 06/20/17 06/20/17 08:15 08:30 08:45 Temperature Pulse Rate 58 L 62 57 L Pulse Rate [ Bilateral Throughout] Respiratory 18 16 14 Rate Respiratory Rate [Bilateral Throughout] Blood Pressure 105/46 112/49 84/40 O2 Sat by Pulse 99 98 97 Oximetry 06/20/17 06/20/17 06/20/17 09:00 09:15 09:30 Temperature Pulse Rate 64 59 L 57 L Pulse Rate [ Bilateral Throughout] Respiratory 16 16 14 Rate Respiratory Rate [Bilateral Throughout] Blood Pressure 69/34 118/57 122/49 O2 Sat by Pulse 98 96 96 Oximetry 06/20/17 06/20/17 06/20/17 09:32 09:39 09:43 Temperature Pulse Rate 70 Pulse Rate [ 75 Bilateral Throughout] Respiratory 22 Rate Respiratory 18 Rate [Bilateral Throughout] Blood Pressure 122/49 O2 Sat by Pulse 98 98 Oximetry 06/20/17 06/20/17 06/20/17 09:45 09:51 10:00 Temperature Pulse Rate 86 81 Pulse Rate [ 77 Bilateral Throughout] Respiratory 20 17 Rate Respiratory 16 Rate [Bilateral Throughout] Blood Pressure 122/49 123/57 O2 Sat by Pulse 95 96 Oximetry 06/20/17 06/20/17 06/20/17 10:15 10:31 10:45 Temperature Pulse Rate 74 76 76 Pulse Rate [ Bilateral Throughout] Respiratory 21 15 17 Rate Respiratory Rate [Bilateral Throughout] Blood Pressure 123/57 107/53 107/53 O2 Sat by Pulse 95 94 93 Oximetry 06/20/17 06/20/17 06/20/17 10:53 11:00 11:05 Temperature Pulse Rate 73 Pulse Rate [ Bilateral Throughout] Respiratory 20 18 Rate Respiratory Rate [Bilateral Throughout] Blood Pressure 117/45 O2 Sat by Pulse 94 98 98 Oximetry 06/20/17 06/20/17 06/20/17 11:15 11:31 11:45 Temperature Pulse Rate 64 73 72 Pulse Rate [ Bilateral Throughout] Respiratory 18 16 10 L Rate Respiratory Rate [Bilateral Throughout] Blood Pressure 106/50 110/49 106/48 O2 Sat by Pulse 95 95 97 Oximetry 06/20/17 06/20/17 06/20/17 12:00 12:15 12:30 Temperature Pulse Rate 66 70 70 Pulse Rate [ Bilateral Throughout] Respiratory 16 16 17 Rate Respiratory Rate [Bilateral Throughout] Blood Pressure 106/45 110/46 114/47 O2 Sat by Pulse 96 95 94 Oximetry 06/20/17 06/20/17 06/20/17 12:45 13:00 13:15 Temperature Pulse Rate 76 78 77 Pulse Rate [ Bilateral Throughout] Respiratory 20 14 17 Rate Respiratory Rate [Bilateral Throughout] Blood Pressure 114/47 111/51 106/51 O2 Sat by Pulse 96 95 98 Oximetry 06/20/17 06/20/17 06/20/17 13:31 13:45 14:01 Temperature Pulse Rate 77 75 Pulse Rate [ Bilateral Throughout] Respiratory 20 18 Rate Respiratory Rate [Bilateral Throughout] Blood Pressure 104/47 102/45 102/45 O2 Sat by Pulse 99 96 96 Oximetry 06/20/17 06/20/17 06/20/17 14:15 14:31 14:43 Temperature Pulse Rate 74 76 Pulse Rate [ 79 Bilateral Throughout] Respiratory 33 H 24 Rate Respiratory 24 Rate [Bilateral Throughout] Blood Pressure 104/33 106/48 O2 Sat by Pulse 94 94 Oximetry Constitutional: alert (awake, critically ill on pressors) Eyes: non-icteric ENT: oropharynx moist Neck: supple Effort: normal Ascultation: Bilateral: wheezes (faint expiratory bilaterally) Cardiovascular: regular rate and rhythm (no mrg) Gastrointestinal: normoactive bowel sounds, soft, non-tender, non-distended Integumentary: normal Extremities: no cyanosis, no edema, pink and warm Neurologic: normal mental status (except confusiong), non-focal exam (moves all extremities), pupils equal and round, CN II-XII normal Psychiatric: mood appropriate, affect normal CBC and BMP: 06/20/17 06:00 06/20/17 06:00 ABG, PT/INR, D-dimer: ABG POC ABG pH 7.360 (7.35-7.45) 06/20/17 10:53 POC ABG pCO2 42.4 (35-45) 06/20/17 10:53 POC ABG pO2 57 (80-105) L 06/20/17 10:53 POC ABG HCO3 24.0 06/20/17 10:53 POC ABG Total CO2 25 06/20/17 10:53 POC ABG O2 Sat 88 06/20/17 10:53 PT/INR, D-dimer PT 16.9 Sec. (12.2-14.9) H 06/15/17 20:21 INR 1.31 (0.87-1.13) H 06/15/17 20:21 D-Dimer 985.05 ng/mlDDU (0-234) H 06/15/17 20:21 Abnormal lab findings: Abnormal Labs 06/15/17 06/15/17 06/15/17 17:52 19:00 19:00 WBC 3.7 L RBC 3.25 L Hgb Hct RDW 15.8 H Lymph % (Auto) Stephens % (Auto) 7.7 H Lymph # 0.9 L Stephens # Seg Neutrophils % Seg Neutrophils # PT INR D-Dimer POC ABG pH POC ABG pCO2 POC ABG pO2 VBG pH Sodium Chloride 96.3 L BUN 32 H Creatinine 3.5 H Glucose 428 H POC Glucose > 500 H Hemoglobin A1c Calcium Direct Bilirubin AST ALT Alkaline Phosphatase Total Creatine Kinase C-Reactive Protein NT-Pro-B Natriuret Pep Albumin Ur Specific [place] Urine WBC (Auto) U Epithel Cells (Auto) 06/15/17 06/15/17 06/15/17 19:00 19:35 20:00 WBC RBC Hgb Hct RDW Lymph % (Auto) Stephens % (Auto) Lymph # Stephens # Seg Neutrophils % Seg Neutrophils # PT INR D-Dimer POC ABG pH POC ABG pCO2 POC ABG pO2 VBG pH 7.261 L Sodium Chloride BUN Creatinine Glucose POC Glucose 371 H 384 H Hemoglobin A1c Calcium Direct Bilirubin AST ALT Alkaline Phosphatase Total Creatine Kinase C-Reactive Protein NT-Pro-B Natriuret Pep Albumin Ur Specific [place] Urine WBC (Auto) U Epithel Cells (Auto) 06/15/17 06/15/17 06/15/17 20:21 20:21 20:21 WBC RBC Hgb Hct RDW Lymph % (Auto) Stephens % (Auto) Lymph # Stephens # Seg Neutrophils % Seg Neutrophils # PT 16.9 H INR 1.31 H D-Dimer 985.05 H POC ABG pH POC ABG pCO2 POC ABG pO2 VBG pH Sodium Chloride BUN Creatinine Glucose POC Glucose Hemoglobin A1c Calcium Direct Bilirubin AST ALT Alkaline Phosphatase Total Creatine Kinase 147 H C-Reactive Protein NT-Pro-B Natriuret Pep 7290 H Albumin Ur Specific [place] Urine WBC (Auto) U Epithel Cells (Auto) 06/15/17 06/16/17 06/16/17 Unknown 10:13 13:23 WBC RBC Hgb Hct RDW Lymph % (Auto) Stephens % (Auto) Lymph # Stephens # Seg Neutrophils % Seg Neutrophils # PT INR D-Dimer POC ABG pH POC ABG pCO2 POC ABG pO2 VBG pH Sodium Chloride BUN Creatinine Glucose POC Glucose 290 H 301 H Hemoglobin A1c Calcium Direct Bilirubin AST ALT Alkaline Phosphatase Total Creatine Kinase C-Reactive Protein NT-Pro-B Natriuret Pep Albumin Ur Specific [place] Urine WBC (Auto) 72.0 H U Epithel Cells (Auto) 06/16/17 06/17/17 06/17/17 17:36 00:16 00:35 WBC RBC Hgb Hct RDW Lymph % (Auto) Stephens % (Auto) Lymph # Stephens # Seg Neutrophils % Seg Neutrophils # PT INR D-Dimer POC ABG pH POC ABG pCO2 POC ABG pO2 VBG pH Sodium Chloride BUN Creatinine Glucose POC Glucose 120 H < 40 L 188 H Hemoglobin A1c Calcium Direct Bilirubin AST ALT Alkaline Phosphatase Total Creatine Kinase C-Reactive Protein NT-Pro-B Natriuret Pep Albumin Ur Specific [place] Urine WBC (Auto) U Epithel Cells (Auto) 06/17/17 06/17/17 06/17/17 03:19 03:19 03:19 WBC RBC 3.31 L Hgb Hct RDW 16.0 H Lymph % (Auto) Stephens % (Auto) Lymph # 1.1 L Stephens # Seg Neutrophils % 76.0 H Seg Neutrophils # PT INR D-Dimer POC ABG pH POC ABG pCO2 POC ABG pO2 VBG pH Sodium Chloride BUN 45 H Creatinine 4.5 H Glucose 192 H POC Glucose Hemoglobin A1c 11.5 H Calcium 8.1 L Direct Bilirubin AST ALT Alkaline Phosphatase Total Creatine Kinase C-Reactive Protein NT-Pro-B Natriuret Pep Albumin Ur Specific [place] Urine WBC (Auto) U Epithel Cells (Auto) 06/17/17 06/17/17 06/17/17 03:51 06:44 11:15 WBC RBC Hgb Hct RDW Lymph % (Auto) Stephens % (Auto) Lymph # Stephens # Seg Neutrophils % Seg Neutrophils # PT INR D-Dimer POC ABG pH POC ABG pCO2 POC ABG pO2 VBG pH Sodium Chloride BUN Creatinine Glucose POC Glucose 184 H 326 H 380 H Hemoglobin A1c Calcium Direct Bilirubin AST ALT Alkaline Phosphatase Total Creatine Kinase C-Reactive Protein NT-Pro-B Natriuret Pep Albumin Ur Specific [place] Urine WBC (Auto) U Epithel Cells (Auto) 06/17/17 06/17/17 06/18/17 17:56 23:35 00:02 WBC RBC Hgb Hct RDW Lymph % (Auto) Stephens % (Auto) Lymph # Stephens # Seg Neutrophils % Seg Neutrophils # PT INR D-Dimer POC ABG pH 7.314 L POC ABG pCO2 48.8 H POC ABG pO2 53 L VBG pH Sodium Chloride BUN Creatinine Glucose POC Glucose 59 L < 40 L Hemoglobin A1c Calcium Direct Bilirubin AST ALT Alkaline Phosphatase Total Creatine Kinase C-Reactive Protein NT-Pro-B Natriuret Pep Albumin Ur Specific [place] Urine WBC (Auto) U Epithel Cells (Auto) 06/18/17 06/18/17 06/18/17 00:08 00:25 00:43 WBC RBC Hgb Hct RDW Lymph % (Auto) Stephens % (Auto) Lymph # Stephens # Seg Neutrophils % Seg Neutrophils # PT INR D-Dimer POC ABG pH POC ABG pCO2 POC ABG pO2 VBG pH Sodium 136 L Chloride 95.8 L BUN 21 H Creatinine 2.9 H Glucose 131 H POC Glucose 151 H Hemoglobin A1c Calcium 8.2 L Direct Bilirubin AST ALT Alkaline Phosphatase Total Creatine Kinase C-Reactive Protein NT-Pro-B Natriuret Pep Albumin Ur Specific [place] 1.041 H Urine WBC (Auto) 67.0 H U Epithel Cells (Auto) 24.0 H 06/18/17 06/18/17 06/18/17 02:11 05:00 05:00 WBC RBC 3.22 L Hgb Hct RDW 16.2 H Lymph % (Auto) 10.3 L Stephens % (Auto) Lymph # 0.7 L Stephens # Seg Neutrophils % 81.3 H Seg Neutrophils # PT INR D-Dimer POC ABG pH POC ABG pCO2 POC ABG pO2 VBG pH Sodium Chloride BUN 21 H Creatinine 3.2 H Glucose 159 H POC Glucose 183 H Hemoglobin A1c Calcium 7.9 L Direct Bilirubin 0.3 H AST 73 H ALT 112 H Alkaline Phosphatase 207 H Total Creatine Kinase C-Reactive Protein NT-Pro-B Natriuret Pep Albumin 3.4 L Ur Specific [place] Urine WBC (Auto) U Epithel Cells (Auto) 06/18/17 06/18/17 06/18/17 05:31 09:25 12:30 WBC RBC Hgb Hct RDW Lymph % (Auto) Stephens % (Auto) Lymph # Stephens # Seg Neutrophils % Seg Neutrophils # PT INR D-Dimer POC ABG pH POC ABG pCO2 POC ABG pO2 72 L VBG pH Sodium Chloride BUN Creatinine Glucose POC Glucose 181 H 286 H Hemoglobin A1c Calcium Direct Bilirubin AST ALT Alkaline Phosphatase Total Creatine Kinase C-Reactive Protein NT-Pro-B Natriuret Pep Albumin Ur Specific [place] Urine WBC (Auto) U Epithel Cells (Auto) 06/18/17 06/18/17 06/18/17 13:57 21:30 22:45 WBC RBC Hgb Hct RDW Lymph % (Auto) Stephens % (Auto) Lymph # Stephens # Seg Neutrophils % Seg Neutrophils # PT INR D-Dimer POC ABG pH POC ABG pCO2 POC ABG pO2 VBG pH Sodium Chloride BUN Creatinine Glucose POC Glucose 67 L 206 H Hemoglobin A1c Calcium Direct Bilirubin AST ALT Alkaline Phosphatase Total Creatine Kinase C-Reactive Protein 2.50 H NT-Pro-B Natriuret Pep Albumin Ur Specific [place] Urine WBC (Auto) U Epithel Cells (Auto) 06/19/17 06/19/17 06/19/17 00:56 04:50 04:50 WBC RBC 3.02 L Hgb 9.7 L Hct 29.4 L RDW 16.9 H Lymph % (Auto) 5.9 L Stephens % (Auto) Lymph # 0.5 L Stephens # Seg Neutrophils % 87.3 H Seg Neutrophils # PT INR D-Dimer POC ABG pH POC ABG pCO2 POC ABG pO2 VBG pH Sodium 136 L Chloride 96.2 L BUN 27 H Creatinine 4.3 H Glucose 111 H POC Glucose 150 H Hemoglobin A1c Calcium 8.0 L Direct Bilirubin AST 51 H ALT 95 H Alkaline Phosphatase 236 H Total Creatine Kinase C-Reactive Protein NT-Pro-B Natriuret Pep Albumin 3.3 L Ur Specific [place] Urine WBC (Auto) U Epithel Cells (Auto) 06/19/17 06/19/17 06/19/17 07:47 12:36 15:18 WBC RBC Hgb Hct RDW Lymph % (Auto) Stephens % (Auto) Lymph # Stephens # Seg Neutrophils % Seg Neutrophils # PT INR D-Dimer POC ABG pH 7.256 L POC ABG pCO2 48.3 H POC ABG pO2 62 L VBG pH Sodium Chloride BUN Creatinine Glucose POC Glucose 108 H 181 H Hemoglobin A1c Calcium Direct Bilirubin AST ALT Alkaline Phosphatase Total Creatine Kinase C-Reactive Protein NT-Pro-B Natriuret Pep Albumin Ur Specific [place] Urine WBC (Auto) U Epithel Cells (Auto) 06/19/17 06/19/17 06/19/17 18:22 18:23 21:40 WBC RBC Hgb Hct RDW Lymph % (Auto) Stephens % (Auto) Lymph # Stephens # Seg Neutrophils % Seg Neutrophils # PT INR D-Dimer POC ABG pH 7.247 L POC ABG pCO2 50.5 H POC ABG pO2 108 H VBG pH Sodium Chloride BUN Creatinine Glucose POC Glucose 177 H 217 H Hemoglobin A1c Calcium Direct Bilirubin AST ALT Alkaline Phosphatase Total Creatine Kinase C-Reactive Protein NT-Pro-B Natriuret Pep Albumin Ur Specific [place] Urine WBC (Auto) U Epithel Cells (Auto) 06/20/17 06/20/17 06/20/17 00:15 06:00 06:00 WBC 11.7 H RBC 2.78 L Hgb 8.7 L Hct 26.8 L RDW 17.1 H Lymph % (Auto) 5.6 L Stephens % (Auto) 7.9 H Lymph # 0.7 L Stephens # 0.9 H Seg Neutrophils % 86.1 H Seg Neutrophils # 10.0 H PT INR D-Dimer POC ABG pH POC ABG pCO2 POC ABG pO2 VBG pH Sodium Chloride BUN Creatinine 3.0 H Glucose 167 H POC Glucose 243 H Hemoglobin A1c Calcium 7.7 L Direct Bilirubin AST ALT Alkaline Phosphatase Total Creatine Kinase C-Reactive Protein NT-Pro-B Natriuret Pep Albumin Ur Specific [place] Urine WBC (Auto) U Epithel Cells (Auto) 06/20/17 06/20/17 06/20/17 09:01 10:53 11:10 WBC RBC Hgb Hct RDW Lymph % (Auto) Stephens % (Auto) Lymph # Stephens # Seg Neutrophils % Seg Neutrophils # PT INR D-Dimer POC ABG pH POC ABG pCO2 POC ABG pO2 57 L VBG pH Sodium Chloride BUN Creatinine Glucose POC Glucose 199 H 205 H Hemoglobin A1c Calcium Direct Bilirubin AST ALT Alkaline Phosphatase Total Creatine Kinase C-Reactive Protein NT-Pro-B Natriuret Pep Albumin Ur Specific [place] Urine WBC (Auto) U Epithel Cells (Auto) Chest x-ray: report reviewed
[2017-06-20] MEDS ORDERED: WATER FOR INJ (PF) 20 ML ONE (17:02)
[2017-06-20] MEDS: PROAMATINE PO SCH (21:24)
[2017-06-20] MEDS: MORPHINE IV PRN (22:14)
[2017-06-21] MEDS: LEVOPHED 8 MG in NACL 0.9% 250ML 242 ML IV SCH ×4 (01:21→14:41)
[2017-06-21] MEDS: MORPHINE IV PRN ×2 (04:20→16:58)
[2017-06-21] MEDS: NEURONTIN PO SCH ×3 (04:24→22:34)
[2017-06-21] MEDS: ZOSYN/NS 2.25 GM/50ML 2.25 GM/50 ML BAG IV SCH ×3 (05:04→22:31)
[2017-06-21] MEDS: PROAMATINE PO SCH ×3 (05:06→22:31)
[2017-06-21 06:05] LABS: Basophils % (Auto) 0.2 % (0.0-1.8); Hematocrit 25.6 % (30.3-42.9); Hemoglobin 8.4 gm/dl (10.1-14.3); Mean Corpuscular HGB Conc 33 % (30-34); Mean Corpuscular Hemoglobin 32 pg (28-32); Mean Corpuscular Volume 97 fl (79-97); Platelet Count 165 K/mm3 (140-440); Red Blood Count 2.63 M/mm3 (3.65-5.03); Red Cell Distribution Width 17.4 % (13.2-15.2); White Blood Count 9.6 K/mm3 (4.5-11.0)
[2017-06-21 06:22] LABS: Calcium 7.9 mg/dL (8.4-10.2); Potassium 4.2 mmol/L (3.6-5.0)
[2017-06-21] MEDS: NOVOLOG SUB-Q SCH ×4 (07:39→21:52)
[2017-06-21] MEDS: DUONEB *Not for PRN Use IH SCH ×3 (07:55→20:28)
--- NOTE | 2017-06-21 08:30 | Progress Note ---
Assessment and Plan Assessment and plan: --Sepsis secondary to urinary tract infection; continue empiric antibiotics, follow cultures, ID if needed --Septic shock; on Levophed, IV fluids, closely monitor --End-stage renal disease on hemodialysis; dialysis per schedule, nephrology consulted --Type 2 diabetes mellitus; uncontrolled , slight insulin was not given by the nurse for unknown reason Accu-Chek sliding scale coverage and ADA diet and insulin, A1c 11.5, possible home health nurse at discharge --CHF /acute diastolic CHF, left ventricle function ejection -20%, cannot use diuretics in view of hypotension --DVT prophylaxis; with heparin --Full CODE STATUS Closely monitor the patient and adjust the management as needed If blood pressures remain stable , may transfer out of ICU to the floor Critical care time 31 minutes The high probability of a clinically significant, sudden or life threatening deterioration of the [ID,cardio ,renal] system(s) required my full and direct attention, intervention and personal management. The aggregate critical care time was [31 ] minutes. This time is in addition to time spent performing reported procedures but includes the following: [x] Data Review and interpretation [x] Patient assessment and monitoring of vital signs [x] Documentation, counseling [x] Medication orders and management History Interval history: Patient Seen and examined Medical records reviewed Remained hypotensive, on Levophed No new complaints Hospitalist Physical - Constitutional Vitals: Temp Pulse Resp BP Pulse Ox 97.5 F L 82 20 113/48 98 06/21/17 07:57 06/21/17 08:09 06/21/17 08:09 06/21/17 08:00 06/21/17 08:00 General appearance: Present: no acute distress, well-nourished, other (lethergic ) - EENT Eyes: Present: PERRL, EOM intact - Neck Neck: Present: supple, normal ROM - Respiratory Respiratory effort: normal Respiratory: bilateral: diminished, negative: rales, rhonchi, wheezing - Cardiovascular Rhythm: regular Heart Sounds: Present: S1 & S2 - Extremities Extremities: no ischemia, No edema - Abdominal General gastrointestinal: soft, non-tender, non-distended, normal bowel sounds - Integumentary Integumentary: Present: clear, warm - Psychiatric Psychiatric: appropriate mood/affect, other (confused at times) - Neurologic Neurologic: CNII-XII intact, moves all extremities Results - Labs CBC & Chem 7: 06/21/17 04:30 06/21/17 04:30 Labs: Laboratory Last Values WBC 9.6 K/mm3 (4.5-11.0) 06/21/17 04:30 RBC 2.63 M/mm3 (3.65-5.03) L 06/21/17 04:30 Hgb 8.4 gm/dl (10.1-14.3) L 06/21/17 04:30 Hct 25.6 % (30.3-42.9) L 06/21/17 04:30 MCV 97 fl (79-97) 06/21/17 04:30 MCH 32 pg (28-32) 06/21/17 04:30 MCHC 33 % (30-34) 06/21/17 04:30 RDW 17.4 % (13.2-15.2) H 06/21/17 04:30 Plt Count 165 K/mm3 (140-440) 06/21/17 04:30 Lymph % (Auto) 8.6 % (13.4-35.0) L 06/21/17 04:30 [place] % (Auto) 6.2 % (0.0-7.3) 06/21/17 04:30 Eos % (Auto) 1.0 % (0.0-4.3) 06/21/17 04:30 Baso % (Auto) 0.2 % (0.0-1.8) 06/21/17 04:30 Lymph # 0.8 K/mm3 (1.2-5.4) L 06/21/17 04:30 [place] # 0.6 K/mm3 (0.0-0.8) 06/21/17 04:30 Eos # 0.1 K/mm3 (0.0-0.4) 06/21/17 04:30 Baso # 0.0 K/mm3 (0.0-0.1) 06/21/17 04:30 Seg Neutrophils % 84.0 % (40.0-70.0) H 06/21/17 04:30 Seg Neutrophils # 8.0 K/mm3 (1.8-7.7) H 06/21/17 04:30 PT 16.9 Sec. (12.2-14.9) H 06/15/17 20:21 INR 1.31 (0.87-1.13) H 06/15/17 20:21 APTT 35.3 Sec. (24.2-36.6) 06/15/17 20:21 D-Dimer 985.05 ng/mlDDU (0-234) H 06/15/17 20:21 POC ABG pH 7.360 (7.35-7.45) 06/20/17 10:53 POC ABG pCO2 42.4 (35-45) 06/20/17 10:53 POC ABG pO2 57 (80-105) L 06/20/17 10:53 POC ABG HCO3 24.0 06/20/17 10:53 POC ABG Total CO2 25 06/20/17 10:53 POC ABG O2 Sat 88 06/20/17 10:53 POC ABG Base Excess -1 06/20/17 10:53 VBG pH 7.261 (7.320-7.420) L 06/15/17 19:00 FiO2 32 % 06/20/17 10:53 Sodium 136 mmol/L (137-145) L 06/21/17 04:30 Potassium 4.2 mmol/L (3.6-5.0) 06/21/17 04:30 Chloride 96.0 mmol/L (98-107) L 06/21/17 04:30 Carbon Dioxide 22 mmol/L (22-30) 06/21/17 04:30 Anion Gap 22 mmol/L 06/21/17 04:30 BUN 28 mg/dL (7-17) H 06/21/17 04:30 Creatinine 4.1 mg/dL (0.7-1.2) H 06/21/17 04:30 Estimated GFR 13 ml/min 06/21/17 04:30 BUN/Creatinine Ratio 7 % 06/21/17 04:30 Glucose 160 mg/dL (65-100) H 06/21/17 04:30 POC Glucose 217 (70-105) H 06/21/17 07:35 Hemoglobin A1c 11.5 % (4-6) H 06/17/17 03:19 Lactic Acid 1.50 mmol/L (0.7-2.0) 06/17/17 15:12 Calcium 7.9 mg/dL (8.4-10.2) L 06/21/17 04:30 Magnesium 1.70 mg/dL (1.7-2.3) 06/20/17 06:00 Total Bilirubin 1.00 mg/dL (0.1-1.2) 06/19/17 04:50 Direct Bilirubin 0.3 mg/dL (0-0.2) H 06/18/17 05:00 Indirect Bilirubin 0.3 mg/dL 06/18/17 05:00 AST 51 units/L (5-40) H 06/19/17 04:50 ALT 95 units/L (7-56) H 06/19/17 04:50 Alkaline Phosphatase 236 units/L (35-129) H 06/19/17 04:50 Total Creatine Kinase 124 units/L (30-135) 06/16/17 10:25 CK-MB (CK-2) 1.9 ng/mL (0.0-4.0) 06/16/17 10:25 CK-MB (CK-2) Rel Index 1.5 (0-4) 06/16/17 10:25 Troponin T < 0.010 ng/mL (0.00-0.029) 06/16/17 10:25 C-Reactive Protein 2.50 mg/dL (0.00-1.30) H 06/18/17 13:57 NT-Pro-B Natriuret Pep 7290 pg/mL (0-900) H 06/15/17 20:21 Total Protein 6.3 g/dL (6.3-8.2) 06/19/17 04:50 Albumin 3.3 g/dL (3.9-5) L 06/19/17 04:50 Albumin/Globulin Ratio 1.1 % 06/19/17 04:50 TSH 0.415 mlU/mL (0.270-4.200) 06/17/17 15:12 Urine Color [place] (Yellow) 06/18/17 00:25 Urine Turbidity Slightly cloudy (Clear) 06/18/17 00:25 Urine pH 5.0 (5.0-7.0) 06/18/17 00:25 Ur Specific [place] 1.041 (1.003-1.030) H 06/18/17 00:25 Urine Protein 100 mg/dl mg/dL (Negative) 06/18/17 00:25 Urine Glucose (UA) 50 mg/dL (Negative) 06/18/17 00:25 Urine Ketones Neg mg/dL (Negative) 06/18/17 00:25 Urine Blood Sm (Negative) 06/18/17 00:25 Urine Nitrite Neg (Negative) 06/18/17 00:25 Urine Bilirubin Neg (Negative) 06/18/17 00:25 Urine Ictotest Negative (Negative) 06/15/17 Unknown Urine Urobilinogen < 2.0 mg/dL (<2.0) 06/18/17 00:25 Ur Leukocyte Esterase Mod (Negative) 06/18/17 00:25 Urine WBC (Auto) 67.0 /HPF (0.0-6.0) H 06/18/17 00:25 Urine RBC (Auto) 25.0 /HPF (0.0-6.0) 06/18/17 00:25 U Epithel Cells (Auto) 24.0 /HPF (0-13.0) H 06/18/17 00:25 Urine Bacteria (Auto) 1+ /HPF (Negative) 06/18/17 00:25 Urine WBC Clumps 2+ /HPF 06/18/17 00:25 Amorphous Crystals 2+ 06/18/17 00:25 Hyaline Casts 3 /LPF 06/18/17 00:25 Urine Mucus Few /HPF 06/18/17 00:25 Rheumatoid Factor < 10 IU/ml (0-13) 06/18/17 14:51 HIV 1&2 Antibody Rapid Non react (Non React) 06/18/17 14:51 HIV P24 Antigen Non react (Non React) 06/18/17 14:51
[2017-06-21] MEDS: HEPARIN IV PRN (11:55)
[2017-06-21] MEDS: LOVENOX SUB-Q SCH (11:58)
[2017-06-21] MEDS: PROTONIX PO SCH (12:19)
--- NOTE | 2017-06-21 13:09 | Progress Note ---
Assessment and Plan Imp: 1. UTI 2. Severe sepsis with septic shock 3. ESRD 4. Acute respiratory failure, hypoxia and hypercapnea 5. Metabolic encephalopathy 6. RV failure/pulm HTN/TR, ? etiology Rec: 1. Complete course of Zosyn empirically, now day #6 -> stop soon 2. Wean Levophed to keep MAP > 65; added Midrodrine 2.5mg TID; f/u Cortisol level -> not getting better so start empiric Solumedrol in light of persistent hypotension and wheezing 3. TSH normal 4. Do not suspect ILD or pneumonia per CT chest 5. DVT PPx 6. Re: Echo findings, CTA chest negative 06/15/17, prior CT a/p showed normal liver; f/u HIV and CTD panel; would recommend outpatient PFTs +/- PSG if she recovers from current illness 7. BIPAP prn 8. Would try to limit IV narcotics if possible 9. Prognosis is guarded CCT 31 minutes No family present today Subjective Date of service: 06/21/17 Principal diagnosis: sepsis, ESRD Interval history: No events except O2 desaturation upon initiation of HD this AM, now back on BIPAP with improvement. Mental status is not changed -> she is confused but alert with nonfocal exam. Remains on Levophed 18mcg. + Wheezing. Active Medications Acetaminophen (Tylenol) 650 mg PO Q4H PRN PRN Reason: Pain MILD(1-3)/Fever >100.5/LAVARADO Last Admin: 06/20/17 00:53 Dose: 650 mg Albuterol (Proventil) 2.5 mg IH Q4HRT PRN PRN Reason: Shortness Of Breath Albuterol/Ipratropium (Duoneb *Not For Prn Use*) 1 ampul IH TIDRT [facility] Last Admin: 06/21/17 07:55 Dose: 1 ampul Bisacodyl (Dulcolax) 10 mg UT QDAY PRN PRN Reason: Constipation unrelieved by MOM Dextrose (D50w (25gm) Vial) 25 gm IV PRN PRN PRN Reason: Hypoglycemia Enoxaparin Sodium (Lovenox) 30 mg SUB-Q QDAY [facility] Last Admin: 06/21/17 11:58 Dose: 30 mg Epoetin Pradeep (Epogen) 20,000 unit IV RAJENDRA [facility] Last Admin: 06/21/17 10:19 Dose: 20,000 unit Gabapentin (Neurontin) 300 mg PO BID [facility] Last Admin: 06/21/17 12:18 Dose: Not Given Heparin Sodium (Porcine) (Heparin) 5,000 unit IV RAJENDRA PRN PRN Reason: dwell after dialysis Last Admin: 06/21/17 11:55 Dose: 5,000 unit Sodium Chloride (Nacl 0.9%) 100 mls @ 999 mls/hr IV RAJENDRA PRN PRN Reason: Hypotension Norepinephrine 8 mg/ Sodium (Chloride) 250 mls @ 3.75 mls/hr IV TITR MUNA; 2 MCG /MIN PRN Reason: Protocol Last Titration: 06/21/17 12:00 Dose: 14 mcg/min, 26.25 mls/hr Piperacillin Sod/Tazobactam Sod (Zosyn/Ns 2.25 Gm/50ml) 2.25 gm in 50 mls @ 100 mls/hr IV Q8HR [facility] Last Admin: 06/21/17 05:04 Dose: 100 mls/hr Insulin Aspart (Novolog) 0 units SUB-Q ACHS MUNA PRN Reason: Protocol Last Admin: 06/21/17 12:00 Dose: 2 units Methylprednisolone Sodium Succinate (Solu-Medrol) 40 mg IV Q8HR MUNA Midodrine (Proamatine) 2.5 mg PO Q8HR [facility] Last Admin: 06/21/17 05:06 Dose: 2.5 mg Miscellaneous Medication (Dorzolamide Hcl/Timolol Maleat [Dorzolamide-Timolol Eye Drops]) 10 ml OP QDAY [facility] Last Admin: 06/17/17 11:28 Dose: Not Given Morphine Sulfate (Morphine) 1 mg IV Q4H PRN PRN Reason: Pain, Moderate (4-6) Last Admin: 06/21/17 04:20 Dose: 1 mg Ondansetron HCl (Zofran) 4 mg IV Q8H PRN PRN Reason: N/V unrelieved by Stan Last Admin: 06/18/17 23:08 Dose: 4 mg Pantoprazole Sodium (Protonix) 40 mg PO QDAY [facility] Last Admin: 06/21/17 12:19 Dose: Not Given Objective Vital Signs - 12hr 06/21/17 06/21/17 06/21/17 01:15 01:31 01:45 Temperature Pulse Rate 72 73 77 Pulse Rate [ Anterior Bilateral Throughout] Pulse Rate [ Left Dorsalis Pedis] Pulse Rate [ Left Radial] Pulse Rate [ Right Dorsalis Pedis] Pulse Rate [ Right Radial] Respiratory 15 18 18 Rate Respiratory Rate [Anterior Bilateral Throughout] Blood Pressure 108/42 127/52 127/55 O2 Sat by Pulse 95 97 96 Oximetry O2 Sat by Pulse Oximetry [ Anterior Bilateral Throughout] 06/21/17 06/21/17 06/21/17 02:00 02:15 02:30 Temperature Pulse Rate 82 79 79 Pulse Rate [ Anterior Bilateral Throughout] Pulse Rate [ Left Dorsalis Pedis] Pulse Rate [ Left Radial] Pulse Rate [ Right Dorsalis Pedis] Pulse Rate [ Right Radial] Respiratory 18 17 18 Rate Respiratory Rate [Anterior Bilateral Throughout] Blood Pressure 127/55 128/54 120/55 O2 Sat by Pulse 98 97 95 Oximetry O2 Sat by Pulse Oximetry [ Anterior Bilateral Throughout] 06/21/17 06/21/17 06/21/17 02:45 03:00 03:15 Temperature Pulse Rate 80 77 79 Pulse Rate [ Anterior Bilateral Throughout] Pulse Rate [ Left Dorsalis Pedis] Pulse Rate [ Left Radial] Pulse Rate [ Right Dorsalis Pedis] Pulse Rate [ Right Radial] Respiratory 19 18 16 Rate Respiratory Rate [Anterior Bilateral Throughout] Blood Pressure 129/53 128/53 128/60 O2 Sat by Pulse 96 97 97 Oximetry O2 Sat by Pulse Oximetry [ Anterior Bilateral Throughout] 06/21/17 06/21/17 06/21/17 03:24 03:30 03:45 Temperature 98.6 F Pulse Rate 77 86 Pulse Rate [ Anterior Bilateral Throughout] Pulse Rate [ Left Dorsalis Pedis] Pulse Rate [ Left Radial] Pulse Rate [ Right Dorsalis Pedis] Pulse Rate [ Right Radial] Respiratory 19 16 Rate Respiratory Rate [Anterior Bilateral Throughout] Blood Pressure 126/57 128/60 O2 Sat by Pulse 97 Oximetry O2 Sat by Pulse Oximetry [ Anterior Bilateral Throughout] 06/21/17 06/21/17 06/21/17 04:00 04:01 04:15 Temperature Pulse Rate 94 H 81 Pulse Rate [ Anterior Bilateral Throughout] Pulse Rate [ 78 Left Dorsalis Pedis] Pulse Rate [ 79 Left Radial] Pulse Rate [ 79 Right Dorsalis Pedis] Pulse Rate [ 79 Right Radial] Respiratory 21 20 20 Rate Respiratory Rate [Anterior Bilateral Throughout] Blood Pressure 130/49 120/47 O2 Sat by Pulse 97 95 96 Oximetry O2 Sat by Pulse Oximetry [ Anterior Bilateral Throughout] 06/21/17 06/21/17 06/21/17 04:20 04:31 04:45 Temperature Pulse Rate 78 76 Pulse Rate [ Anterior Bilateral Throughout] Pulse Rate [ Left Dorsalis Pedis] Pulse Rate [ Left Radial] Pulse Rate [ Right Dorsalis Pedis] Pulse Rate [ Right Radial] Respiratory 22 21 19 Rate Respiratory Rate [Anterior Bilateral Throughout] Blood Pressure 104/41 116/46 O2 Sat by Pulse 89 95 Oximetry O2 Sat by Pulse Oximetry [ Anterior Bilateral Throughout] 06/21/17 06/21/17 06/21/17 05:00 05:15 05:30 Temperature Pulse Rate 82 80 75 Pulse Rate [ Anterior Bilateral Throughout] Pulse Rate [ Left Dorsalis Pedis] Pulse Rate [ Left Radial] Pulse Rate [ Right Dorsalis Pedis] Pulse Rate [ Right Radial] Respiratory 23 21 17 Rate Respiratory Rate [Anterior Bilateral Throughout] Blood Pressure 114/50 105/42 104/50 O2 Sat by Pulse 89 85 97 Oximetry O2 Sat by Pulse Oximetry [ Anterior Bilateral Throughout] 06/21/17 06/21/17 06/21/17 05:45 06:00 06:15 Temperature Pulse Rate 86 77 76 Pulse Rate [ Anterior Bilateral Throughout] Pulse Rate [ Left Dorsalis Pedis] Pulse Rate [ Left Radial] Pulse Rate [ Right Dorsalis Pedis] Pulse Rate [ Right Radial] Respiratory 21 17 19 Rate Respiratory Rate [Anterior Bilateral Throughout] Blood Pressure 113/53 114/47 106/48 O2 Sat by Pulse 97 90 86 Oximetry O2 Sat by Pulse Oximetry [ Anterior Bilateral Throughout] 06/21/17 06/21/17 06/21/17 06:30 06:45 07:00 Temperature Pulse Rate 77 76 78 Pulse Rate [ Anterior Bilateral Throughout] Pulse Rate [ Left Dorsalis Pedis] Pulse Rate [ Left Radial] Pulse Rate [ Right Dorsalis Pedis] Pulse Rate [ Right Radial] Respiratory 16 19 24 Rate Respiratory Rate [Anterior Bilateral Throughout] Blood Pressure 110/50 115/48 106/51 O2 Sat by Pulse 95 96 86 Oximetry O2 Sat by Pulse Oximetry [ Anterior Bilateral Throughout] 06/21/17 06/21/17 06/21/17 07:15 07:25 07:30 Temperature Pulse Rate 77 84 Pulse Rate [ Anterior Bilateral Throughout] Pulse Rate [ Left Dorsalis Pedis] Pulse Rate [ Left Radial] Pulse Rate [ Right Dorsalis Pedis] Pulse Rate [ Right Radial] Respiratory 18 16 14 Rate Respiratory Rate [Anterior Bilateral Throughout] Blood Pressure 112/47 105/48 O2 Sat by Pulse 91 96 95 Oximetry O2 Sat by Pulse Oximetry [ Anterior Bilateral Throughout] 06/21/17 06/21/17 06/21/17 07:45 07:52 07:57 Temperature 97.5 F L Pulse Rate 75 Pulse Rate [ 81 Anterior Bilateral Throughout] Pulse Rate [ Left Dorsalis Pedis] Pulse Rate [ Left Radial] Pulse Rate [ Right Dorsalis Pedis] Pulse Rate [ Right Radial] Respiratory 21 Rate Respiratory 16 Rate [Anterior Bilateral Throughout] Blood Pressure 107/49 O2 Sat by Pulse 97 97 Oximetry O2 Sat by Pulse Oximetry [ Anterior Bilateral Throughout] 06/21/17 06/21/17 06/21/17 08:00 08:09 08:15 Temperature 97.5 F L Pulse Rate 78 81 Pulse Rate [ 82 Anterior Bilateral Throughout] Pulse Rate [ Left Dorsalis Pedis] Pulse Rate [ Left Radial] Pulse Rate [ Right Dorsalis Pedis] Pulse Rate [ Right Radial] Respiratory 21 18 Rate Respiratory 20 Rate [Anterior Bilateral Throughout] Blood Pressure 115/50 116/51 O2 Sat by Pulse 98 96 Oximetry O2 Sat by Pulse 94 Oximetry [ Anterior Bilateral Throughout] 06/21/17 06/21/17 06/21/17 08:20 08:30 08:45 Temperature Pulse Rate 78 89 94 H Pulse Rate [ Anterior Bilateral Throughout] Pulse Rate [ Left Dorsalis Pedis] Pulse Rate [ Left Radial] Pulse Rate [ Right Dorsalis Pedis] Pulse Rate [ Right Radial] Respiratory 16 13 Rate Respiratory Rate [Anterior Bilateral Throughout] Blood Pressure 115/50 125/55 124/62 O2 Sat by Pulse 94 96 Oximetry O2 Sat by Pulse Oximetry [ Anterior Bilateral Throughout] 06/21/17 06/21/17 06/21/17 09:00 09:01 09:15 Temperature Pulse Rate 93 H 93 H 90 Pulse Rate [ Anterior Bilateral Throughout] Pulse Rate [ Left Dorsalis Pedis] Pulse Rate [ Left Radial] Pulse Rate [ Right Dorsalis Pedis] Pulse Rate [ Right Radial] Respiratory 26 H 15 Rate Respiratory Rate [Anterior Bilateral Throughout] Blood Pressure 126/55 124/62 129/52 O2 Sat by Pulse 87 96 Oximetry O2 Sat by Pulse Oximetry [ Anterior Bilateral Throughout] 06/21/17 06/21/17 06/21/17 09:21 09:30 09:45 Temperature Pulse Rate 90 84 76 Pulse Rate [ Anterior Bilateral Throughout] Pulse Rate [ Left Dorsalis Pedis] Pulse Rate [ Left Radial] Pulse Rate [ Right Dorsalis Pedis] Pulse Rate [ Right Radial] Respiratory 23 15 17 Rate Respiratory Rate [Anterior Bilateral Throughout] Blood Pressure 129/52 120/59 118/55 O2 Sat by Pulse 98 98 100 Oximetry O2 Sat by Pulse Oximetry [ Anterior Bilateral Throughout] 06/21/17 06/21/17 06/21/17 10:00 10:15 10:30 Temperature Pulse Rate 74 84 80 Pulse Rate [ Anterior Bilateral Throughout] Pulse Rate [ Left Dorsalis Pedis] Pulse Rate [ Left Radial] Pulse Rate [ Right Dorsalis Pedis] Pulse Rate [ Right Radial] Respiratory 13 18 13 Rate Respiratory Rate [Anterior Bilateral Throughout] Blood Pressure 112/54 128/64 119/67 O2 Sat by Pulse 100 97 100 Oximetry O2 Sat by Pulse Oximetry [ Anterior Bilateral Throughout] 06/21/17 06/21/17 06/21/17 10:45 11:00 11:15 Temperature Pulse Rate 75 90 88 Pulse Rate [ Anterior Bilateral Throughout] Pulse Rate [ Left Dorsalis Pedis] Pulse Rate [ Left Radial] Pulse Rate [ Right Dorsalis Pedis] Pulse Rate [ Right Radial] Respiratory 15 17 16 Rate Respiratory Rate [Anterior Bilateral Throughout] Blood Pressure 124/63 135/60 127/62 O2 Sat by Pulse 100 98 82 L Oximetry O2 Sat by Pulse Oximetry [ Anterior Bilateral Throughout] 06/21/17 06/21/17 06/21/17 11:17 11:30 11:32 Temperature Pulse Rate 85 85 89 Pulse Rate [ Anterior Bilateral Throughout] Pulse Rate [ Left Dorsalis Pedis] Pulse Rate [ Left Radial] Pulse Rate [ Right Dorsalis Pedis] Pulse Rate [ Right Radial] Respiratory 14 Rate Respiratory Rate [Anterior Bilateral Throughout] Blood Pressure 127/64 130/64 130/64 O2 Sat by Pulse 99 Oximetry O2 Sat by Pulse Oximetry [ Anterior Bilateral Throughout] 06/21/17 06/21/17 06/21/17 11:45 11:52 12:00 Temperature 97.4 F L Pulse Rate 88 82 80 Pulse Rate [ Anterior Bilateral Throughout] Pulse Rate [ Left Dorsalis Pedis] Pulse Rate [ Left Radial] Pulse Rate [ Right Dorsalis Pedis] Pulse Rate [ Right Radial] Respiratory 19 19 Rate Respiratory Rate [Anterior Bilateral Throughout] Blood Pressure 132/68 132/68 122/97 O2 Sat by Pulse 99 99 Oximetry O2 Sat by Pulse 98 Oximetry [ Anterior Bilateral Throughout] 06/21/17 12:15 Temperature Pulse Rate 86 Pulse Rate [ Anterior Bilateral Throughout] Pulse Rate [ Left Dorsalis Pedis] Pulse Rate [ Left Radial] Pulse Rate [ Right Dorsalis Pedis] Pulse Rate [ Right Radial] Respiratory 14 Rate Respiratory Rate [Anterior Bilateral Throughout] Blood Pressure 122/57 O2 Sat by Pulse 90 Oximetry O2 Sat by Pulse Oximetry [ Anterior Bilateral Throughout] Constitutional: alert (awake, critically ill on pressors and BIPAP) Eyes: non-icteric ENT: oropharynx moist Neck: supple Effort: normal Ascultation: Bilateral: wheezes (faint expiratory bilaterally) Cardiovascular: regular rate and rhythm (no mrg; rhythm appears to be NSR with PACs) Gastrointestinal: normoactive bowel sounds, soft, non-tender, non-distended Integumentary: normal Extremities: no cyanosis, no edema, pink and warm Neurologic: normal mental status (except confusiong), non-focal exam (moves all extremities), pupils equal and round, CN II-XII normal Psychiatric: mood appropriate, affect normal CBC and BMP: 06/21/17 04:30 06/21/17 04:30 ABG, PT/INR, D-dimer: ABG POC ABG pH 7.360 (7.35-7.45) 06/20/17 10:53 POC ABG pCO2 42.4 (35-45) 06/20/17 10:53 POC ABG pO2 57 (80-105) L 06/20/17 10:53 POC ABG HCO3 24.0 06/20/17 10:53 POC ABG Total CO2 25 06/20/17 10:53 POC ABG O2 Sat 88 06/20/17 10:53 PT/INR, D-dimer PT 16.9 Sec. (12.2-14.9) H 06/15/17 20:21 INR 1.31 (0.87-1.13) H 06/15/17 20:21 D-Dimer 985.05 ng/mlDDU (0-234) H 06/15/17 20:21 Abnormal lab findings: Abnormal Labs 06/15/17 06/15/17 06/15/17 17:52 19:00 19:00 WBC 3.7 L RBC 3.25 L Hgb Hct RDW 15.8 H Lymph % (Auto) [place] % (Auto) 7.7 H Lymph # 0.9 L [place] # Seg Neutrophils % Seg Neutrophils # PT INR D-Dimer POC ABG pH POC ABG pCO2 POC ABG pO2 VBG pH Sodium Chloride 96.3 L BUN 32 H Creatinine 3.5 H Glucose 428 H POC Glucose > 500 H Hemoglobin A1c Calcium Direct Bilirubin AST ALT Alkaline Phosphatase Total Creatine Kinase C-Reactive Protein NT-Pro-B Natriuret Pep Albumin Ur Specific [place] Urine WBC (Auto) U Epithel Cells (Auto) 06/15/17 06/15/17 06/15/17 19:00 19:35 20:00 WBC RBC Hgb Hct RDW Lymph % (Auto) [place] % (Auto) Lymph # [place] # Seg Neutrophils % Seg Neutrophils # PT INR D-Dimer POC ABG pH POC ABG pCO2 POC ABG pO2 VBG pH 7.261 L Sodium Chloride BUN Creatinine Glucose POC Glucose 371 H 384 H Hemoglobin A1c Calcium Direct Bilirubin AST ALT Alkaline Phosphatase Total Creatine Kinase C-Reactive Protein NT-Pro-B Natriuret Pep Albumin Ur Specific [place] Urine WBC (Auto) U Epithel Cells (Auto) 06/15/17 06/15/17 06/15/17 20:21 20:21 20:21 WBC RBC Hgb Hct RDW Lymph % (Auto) [place] % (Auto) Lymph # [place] # Seg Neutrophils % Seg Neutrophils # PT 16.9 H INR 1.31 H D-Dimer 985.05 H POC ABG pH POC ABG pCO2 POC ABG pO2 VBG pH Sodium Chloride BUN Creatinine Glucose POC Glucose Hemoglobin A1c Calcium Direct Bilirubin AST ALT Alkaline Phosphatase Total Creatine Kinase 147 H C-Reactive Protein NT-Pro-B Natriuret Pep 7290 H Albumin Ur Specific [place] Urine WBC (Auto) U Epithel Cells (Auto) 06/15/17 06/16/17 06/16/17 Unknown 10:13 13:23 WBC RBC Hgb Hct RDW Lymph % (Auto) [place] % (Auto) Lymph # [place] # Seg Neutrophils % Seg Neutrophils # PT INR D-Dimer POC ABG pH POC ABG pCO2 POC ABG pO2 VBG pH Sodium Chloride BUN Creatinine Glucose POC Glucose 290 H 301 H Hemoglobin A1c Calcium Direct Bilirubin AST ALT Alkaline Phosphatase Total Creatine Kinase C-Reactive Protein NT-Pro-B Natriuret Pep Albumin Ur Specific [place] Urine WBC (Auto) 72.0 H U Epithel Cells (Auto) 06/16/17 06/17/17 06/17/17 17:36 00:16 00:35 WBC RBC Hgb Hct RDW Lymph % (Auto) [place] % (Auto) Lymph # [place] # Seg Neutrophils % Seg Neutrophils # PT INR D-Dimer POC ABG pH POC ABG pCO2 POC ABG pO2 VBG pH Sodium Chloride BUN Creatinine Glucose POC Glucose 120 H < 40 L 188 H Hemoglobin A1c Calcium Direct Bilirubin AST ALT Alkaline Phosphatase Total Creatine Kinase C-Reactive Protein NT-Pro-B Natriuret Pep Albumin Ur Specific [place] Urine WBC (Auto) U Epithel Cells (Auto) 06/17/17 06/17/17 06/17/17 03:19 03:19 03:19 WBC RBC 3.31 L Hgb Hct RDW 16.0 H Lymph % (Auto) [place] % (Auto) Lymph # 1.1 L [place] # Seg Neutrophils % 76.0 H Seg Neutrophils # PT INR D-Dimer POC ABG pH POC ABG pCO2 POC ABG pO2 VBG pH Sodium Chloride BUN 45 H Creatinine 4.5 H Glucose 192 H POC Glucose Hemoglobin A1c 11.5 H Calcium 8.1 L Direct Bilirubin AST ALT Alkaline Phosphatase Total Creatine Kinase C-Reactive Protein NT-Pro-B Natriuret Pep Albumin Ur Specific [place] Urine WBC (Auto) U Epithel Cells (Auto) 06/17/17 06/17/17 06/17/17 03:51 06:44 11:15 WBC RBC Hgb Hct RDW Lymph % (Auto) [place] % (Auto) Lymph # [place] # Seg Neutrophils % Seg Neutrophils # PT INR D-Dimer POC ABG pH POC ABG pCO2 POC ABG pO2 VBG pH Sodium Chloride BUN Creatinine Glucose POC Glucose 184 H 326 H 380 H Hemoglobin A1c Calcium Direct Bilirubin AST ALT Alkaline Phosphatase Total Creatine Kinase C-Reactive Protein NT-Pro-B Natriuret Pep Albumin Ur Specific [place] Urine WBC (Auto) U Epithel Cells (Auto) 06/17/17 06/17/17 06/18/17 17:56 23:35 00:02 WBC RBC Hgb Hct RDW Lymph % (Auto) [place] % (Auto) Lymph # [place] # Seg Neutrophils % Seg Neutrophils # PT INR D-Dimer POC ABG pH 7.314 L POC ABG pCO2 48.8 H POC ABG pO2 53 L VBG pH Sodium Chloride BUN Creatinine Glucose POC Glucose 59 L < 40 L Hemoglobin A1c Calcium Direct Bilirubin AST ALT Alkaline Phosphatase Total Creatine Kinase C-Reactive Protein NT-Pro-B Natriuret Pep Albumin Ur Specific [place] Urine WBC (Auto) U Epithel Cells (Auto) 06/18/17 06/18/17 06/18/17 00:08 00:25 00:43 WBC RBC Hgb Hct RDW Lymph % (Auto) [place] % (Auto) Lymph # [place] # Seg Neutrophils % Seg Neutrophils # PT INR D-Dimer POC ABG pH POC ABG pCO2 POC ABG pO2 VBG pH Sodium 136 L Chloride 95.8 L BUN 21 H Creatinine 2.9 H Glucose 131 H POC Glucose 151 H Hemoglobin A1c Calcium 8.2 L Direct Bilirubin AST ALT Alkaline Phosphatase Total Creatine Kinase C-Reactive Protein NT-Pro-B Natriuret Pep Albumin Ur Specific [place] 1.041 H Urine WBC (Auto) 67.0 H U Epithel Cells (Auto) 24.0 H 06/18/17 06/18/17 06/18/17 02:11 05:00 05:00 WBC RBC 3.22 L Hgb Hct RDW 16.2 H Lymph % (Auto) 10.3 L [place] % (Auto) Lymph # 0.7 L [place] # Seg Neutrophils % 81.3 H Seg Neutrophils # PT INR D-Dimer POC ABG pH POC ABG pCO2 POC ABG pO2 VBG pH Sodium Chloride BUN 21 H Creatinine 3.2 H Glucose 159 H POC Glucose 183 H Hemoglobin A1c Calcium 7.9 L Direct Bilirubin 0.3 H AST 73 H ALT 112 H Alkaline Phosphatase 207 H Total Creatine Kinase C-Reactive Protein NT-Pro-B Natriuret Pep Albumin 3.4 L Ur Specific [place] Urine WBC (Auto) U Epithel Cells (Auto) 06/18/17 06/18/17 06/18/17 05:31 09:25 12:30 WBC RBC Hgb Hct RDW Lymph % (Auto) [place] % (Auto) Lymph # [place] # Seg Neutrophils % Seg Neutrophils # PT INR D-Dimer POC ABG pH POC ABG pCO2 POC ABG pO2 72 L VBG pH Sodium Chloride BUN Creatinine Glucose POC Glucose 181 H 286 H Hemoglobin A1c Calcium Direct Bilirubin AST ALT Alkaline Phosphatase Total Creatine Kinase C-Reactive Protein NT-Pro-B Natriuret Pep Albumin Ur Specific [place] Urine WBC (Auto) U Epithel Cells (Auto) 06/18/17 06/18/17 06/18/17 13:57 21:30 22:45 WBC RBC Hgb Hct RDW Lymph % (Auto) [place] % (Auto) Lymph # [place] # Seg Neutrophils % Seg Neutrophils # PT INR D-Dimer POC ABG pH POC ABG pCO2 POC ABG pO2 VBG pH Sodium Chloride BUN Creatinine Glucose POC Glucose 67 L 206 H Hemoglobin A1c Calcium Direct Bilirubin AST ALT Alkaline Phosphatase Total Creatine Kinase C-Reactive Protein 2.50 H NT-Pro-B Natriuret Pep Albumin Ur Specific [place] Urine WBC (Auto) U Epithel Cells (Auto) 06/19/17 06/19/17 06/19/17 00:56 04:50 04:50 WBC RBC 3.02 L Hgb 9.7 L Hct 29.4 L RDW 16.9 H Lymph % (Auto) 5.9 L [place] % (Auto) Lymph # 0.5 L [place] # Seg Neutrophils % 87.3 H Seg Neutrophils # PT INR D-Dimer POC ABG pH POC ABG pCO2 POC ABG pO2 VBG pH Sodium 136 L Chloride 96.2 L BUN 27 H Creatinine 4.3 H Glucose 111 H POC Glucose 150 H Hemoglobin A1c Calcium 8.0 L Direct Bilirubin AST 51 H ALT 95 H Alkaline Phosphatase 236 H Total Creatine Kinase C-Reactive Protein NT-Pro-B Natriuret Pep Albumin 3.3 L Ur Specific [place] Urine WBC (Auto) U Epithel Cells (Auto) 06/19/17 06/19/17 06/19/17 07:47 12:36 15:18 WBC RBC Hgb Hct RDW Lymph % (Auto) [place] % (Auto) Lymph # [place] # Seg Neutrophils % Seg Neutrophils # PT INR D-Dimer POC ABG pH 7.256 L POC ABG pCO2 48.3 H POC ABG pO2 62 L VBG pH Sodium Chloride BUN Creatinine Glucose POC Glucose 108 H 181 H Hemoglobin A1c Calcium Direct Bilirubin AST ALT Alkaline Phosphatase Total Creatine Kinase C-Reactive Protein NT-Pro-B Natriuret Pep Albumin Ur Specific [place] Urine WBC (Auto) U Epithel Cells (Auto) 06/19/17 06/19/17 06/19/17 18:22 18:23 21:40 WBC RBC Hgb Hct RDW Lymph % (Auto) [place] % (Auto) Lymph # [place] # Seg Neutrophils % Seg Neutrophils # PT INR D-Dimer POC ABG pH 7.247 L POC ABG pCO2 50.5 H POC ABG pO2 108 H VBG pH Sodium Chloride BUN Creatinine Glucose POC Glucose 177 H 217 H Hemoglobin A1c Calcium Direct Bilirubin AST ALT Alkaline Phosphatase Total Creatine Kinase C-Reactive Protein NT-Pro-B Natriuret Pep Albumin Ur Specific [place] Urine WBC (Auto) U Epithel Cells (Auto) 06/20/17 06/20/17 06/20/17 00:15 06:00 06:00 WBC 11.7 H RBC 2.78 L Hgb 8.7 L Hct 26.8 L RDW 17.1 H Lymph % (Auto) 5.6 L [place] % (Auto) 7.9 H Lymph # 0.7 L [place] # 0.9 H Seg Neutrophils % 86.1 H Seg Neutrophils # 10.0 H PT INR D-Dimer POC ABG pH POC ABG pCO2 POC ABG pO2 VBG pH Sodium Chloride BUN Creatinine 3.0 H Glucose 167 H POC Glucose 243 H Hemoglobin A1c Calcium 7.7 L Direct Bilirubin AST ALT Alkaline Phosphatase Total Creatine Kinase C-Reactive Protein NT-Pro-B Natriuret Pep Albumin Ur Specific [place] Urine WBC (Auto) U Epithel Cells (Auto) 06/20/17 06/20/17 06/20/17 09:01 10:53 11:10 WBC RBC Hgb Hct RDW Lymph % (Auto) [place] % (Auto) Lymph # [place] # Seg Neutrophils % Seg Neutrophils # PT INR D-Dimer POC ABG pH POC ABG pCO2 POC ABG pO2 57 L VBG pH Sodium Chloride BUN Creatinine Glucose POC Glucose 199 H 205 H Hemoglobin A1c Calcium Direct Bilirubin AST ALT Alkaline Phosphatase Total Creatine Kinase C-Reactive Protein NT-Pro-B Natriuret Pep Albumin Ur Specific [place] Urine WBC (Auto) U Epithel Cells (Auto) 06/20/17 06/20/17 06/20/17 16:16 21:34 22:02 WBC RBC Hgb Hct RDW Lymph % (Auto) [place] % (Auto) Lymph # [place] # Seg Neutrophils % Seg Neutrophils # PT INR D-Dimer POC ABG pH POC ABG pCO2 POC ABG pO2 VBG pH Sodium Chloride BUN Creatinine Glucose POC Glucose 233 H 150 H 158 H Hemoglobin A1c Calcium Direct Bilirubin AST ALT Alkaline Phosphatase Total Creatine Kinase C-Reactive Protein NT-Pro-B Natriuret Pep Albumin Ur Specific [place] Urine WBC (Auto) U Epithel Cells (Auto) 06/21/17 06/21/17 06/21/17 04:30 04:30 07:35 WBC RBC 2.63 L Hgb 8.4 L Hct 25.6 L RDW 17.4 H Lymph % (Auto) 8.6 L [place] % (Auto) Lymph # 0.8 L [place] # Seg Neutrophils % 84.0 H Seg Neutrophils # 8.0 H PT INR D-Dimer POC ABG pH POC ABG pCO2 POC ABG pO2 VBG pH Sodium 136 L Chloride 96.0 L BUN 28 H Creatinine 4.1 H Glucose 160 H POC Glucose 217 H Hemoglobin A1c Calcium 7.9 L Direct Bilirubin AST ALT Alkaline Phosphatase Total Creatine Kinase C-Reactive Protein NT-Pro-B Natriuret Pep Albumin Ur Specific [place] Urine WBC (Auto) U Epithel Cells (Auto) 06/21/17 11:33 WBC RBC Hgb Hct RDW Lymph % (Auto) [place] % (Auto) Lymph # [place] # Seg Neutrophils % Seg Neutrophils # PT INR D-Dimer POC ABG pH POC ABG pCO2 POC ABG pO2 VBG pH Sodium Chloride BUN Creatinine Glucose POC Glucose 170 H Hemoglobin A1c Calcium Direct Bilirubin AST ALT Alkaline Phosphatase Total Creatine Kinase C-Reactive Protein NT-Pro-B Natriuret Pep Albumin Ur Specific [place] Urine WBC (Auto) U Epithel Cells (Auto) Chest x-ray: report reviewed, image reviewed
[2017-06-21 13:42] LABS: ISTAT Base Excess 2; ISTAT HCO3 26.7; ISTAT PH 7.391 (7.35-7.45); ISTAT PO2 50 (80-105); ISTAT SO2 84; ISTAT TCO2 28
--- NOTE | 2017-06-21 13:42 | Progress Note ---
Assessment and Plan - Patient Problems (1) Septic shock Current Visit: No Status: Acute Plan to address problem: cont empiric ABXs, vasopressor support to keep MAP > 65mmHg. BCx/UCx NGTD (2) Acute UTI Current Visit: Yes Status: Acute Plan to address problem: cont ABXs, dose renally adjusted (3) ESRD (end stage renal disease) Current Visit: No Status: Acute Plan to address problem: cont HD on MWF schedule as tolerated (4) Anemia in chronic kidney disease Current Visit: No Status: Acute Plan to address problem: EPO with HD Subjective Date of service: 06/21/17 Principal diagnosis: sepsis, ESRD Interval history: Pt weak, in acute respiratory distress, currently on BIPAP, remains on vasopressor support with levo at 14mcg/min Objective - Vital Signs Vital signs: Vital Signs - 12hr 06/21/17 06/21/17 06/21/17 01:45 02:00 02:15 Temperature Pulse Rate 77 82 79 Pulse Rate [ Anterior Bilateral Throughout] Pulse Rate [ Left Dorsalis Pedis] Pulse Rate [ Left Radial] Pulse Rate [ Right Dorsalis Pedis] Pulse Rate [ Right Radial] Respiratory 18 18 17 Rate Respiratory Rate [Anterior Bilateral Throughout] Blood Pressure 127/55 127/55 128/54 O2 Sat by Pulse 96 98 97 Oximetry O2 Sat by Pulse Oximetry [ Anterior Bilateral Throughout] 06/21/17 06/21/17 06/21/17 02:30 02:45 03:00 Temperature Pulse Rate 79 80 77 Pulse Rate [ Anterior Bilateral Throughout] Pulse Rate [ Left Dorsalis Pedis] Pulse Rate [ Left Radial] Pulse Rate [ Right Dorsalis Pedis] Pulse Rate [ Right Radial] Respiratory 18 19 18 Rate Respiratory Rate [Anterior Bilateral Throughout] Blood Pressure 120/55 129/53 128/53 O2 Sat by Pulse 95 96 97 Oximetry O2 Sat by Pulse Oximetry [ Anterior Bilateral Throughout] 06/21/17 06/21/17 06/21/17 03:15 03:24 03:30 Temperature 98.6 F Pulse Rate 79 77 Pulse Rate [ Anterior Bilateral Throughout] Pulse Rate [ Left Dorsalis Pedis] Pulse Rate [ Left Radial] Pulse Rate [ Right Dorsalis Pedis] Pulse Rate [ Right Radial] Respiratory 16 19 Rate Respiratory Rate [Anterior Bilateral Throughout] Blood Pressure 128/60 126/57 O2 Sat by Pulse 97 97 Oximetry O2 Sat by Pulse Oximetry [ Anterior Bilateral Throughout] 06/21/17 06/21/17 06/21/17 03:45 04:00 04:01 Temperature Pulse Rate 86 94 H Pulse Rate [ Anterior Bilateral Throughout] Pulse Rate [ 78 Left Dorsalis Pedis] Pulse Rate [ 79 Left Radial] Pulse Rate [ 79 Right Dorsalis Pedis] Pulse Rate [ 79 Right Radial] Respiratory 16 21 20 Rate Respiratory Rate [Anterior Bilateral Throughout] Blood Pressure 128/60 130/49 O2 Sat by Pulse 97 95 Oximetry O2 Sat by Pulse Oximetry [ Anterior Bilateral Throughout] 06/21/17 06/21/17 06/21/17 04:15 04:20 04:31 Temperature Pulse Rate 81 78 Pulse Rate [ Anterior Bilateral Throughout] Pulse Rate [ Left Dorsalis Pedis] Pulse Rate [ Left Radial] Pulse Rate [ Right Dorsalis Pedis] Pulse Rate [ Right Radial] Respiratory 20 22 21 Rate Respiratory Rate [Anterior Bilateral Throughout] Blood Pressure 120/47 104/41 O2 Sat by Pulse 96 89 Oximetry O2 Sat by Pulse Oximetry [ Anterior Bilateral Throughout] 06/21/17 06/21/17 06/21/17 04:45 05:00 05:15 Temperature Pulse Rate 76 82 80 Pulse Rate [ Anterior Bilateral Throughout] Pulse Rate [ Left Dorsalis Pedis] Pulse Rate [ Left Radial] Pulse Rate [ Right Dorsalis Pedis] Pulse Rate [ Right Radial] Respiratory 19 23 21 Rate Respiratory Rate [Anterior Bilateral Throughout] Blood Pressure 116/46 114/50 105/42 O2 Sat by Pulse 95 89 85 Oximetry O2 Sat by Pulse Oximetry [ Anterior Bilateral Throughout] 06/21/17 06/21/17 06/21/17 05:30 05:45 06:00 Temperature Pulse Rate 75 86 77 Pulse Rate [ Anterior Bilateral Throughout] Pulse Rate [ Left Dorsalis Pedis] Pulse Rate [ Left Radial] Pulse Rate [ Right Dorsalis Pedis] Pulse Rate [ Right Radial] Respiratory 17 21 17 Rate Respiratory Rate [Anterior Bilateral Throughout] Blood Pressure 104/50 113/53 114/47 O2 Sat by Pulse 97 97 90 Oximetry O2 Sat by Pulse Oximetry [ Anterior Bilateral Throughout] 06/21/17 06/21/17 06/21/17 06:15 06:30 06:45 Temperature Pulse Rate 76 77 76 Pulse Rate [ Anterior Bilateral Throughout] Pulse Rate [ Left Dorsalis Pedis] Pulse Rate [ Left Radial] Pulse Rate [ Right Dorsalis Pedis] Pulse Rate [ Right Radial] Respiratory 19 16 19 Rate Respiratory Rate [Anterior Bilateral Throughout] Blood Pressure 106/48 110/50 115/48 O2 Sat by Pulse 86 95 96 Oximetry O2 Sat by Pulse Oximetry [ Anterior Bilateral Throughout] 06/21/17 06/21/17 06/21/17 07:00 07:15 07:25 Temperature Pulse Rate 78 77 Pulse Rate [ Anterior Bilateral Throughout] Pulse Rate [ Left Dorsalis Pedis] Pulse Rate [ Left Radial] Pulse Rate [ Right Dorsalis Pedis] Pulse Rate [ Right Radial] Respiratory 24 18 16 Rate Respiratory Rate [Anterior Bilateral Throughout] Blood Pressure 106/51 112/47 O2 Sat by Pulse 86 91 96 Oximetry O2 Sat by Pulse Oximetry [ Anterior Bilateral Throughout] 06/21/17 06/21/17 06/21/17 07:30 07:45 07:52 Temperature Pulse Rate 84 75 Pulse Rate [ 81 Anterior Bilateral Throughout] Pulse Rate [ Left Dorsalis Pedis] Pulse Rate [ Left Radial] Pulse Rate [ Right Dorsalis Pedis] Pulse Rate [ Right Radial] Respiratory 14 21 Rate Respiratory 16 Rate [Anterior Bilateral Throughout] Blood Pressure 105/48 107/49 O2 Sat by Pulse 95 97 97 Oximetry O2 Sat by Pulse Oximetry [ Anterior Bilateral Throughout] 06/21/17 06/21/17 06/21/17 07:57 08:00 08:09 Temperature 97.5 F L 97.5 F L Pulse Rate 78 Pulse Rate [ 82 Anterior Bilateral Throughout] Pulse Rate [ Left Dorsalis Pedis] Pulse Rate [ Left Radial] Pulse Rate [ Right Dorsalis Pedis] Pulse Rate [ Right Radial] Respiratory 21 Rate Respiratory 20 Rate [Anterior Bilateral Throughout] Blood Pressure 115/50 O2 Sat by Pulse 98 Oximetry O2 Sat by Pulse 94 Oximetry [ Anterior Bilateral Throughout] 06/21/17 06/21/17 06/21/17 08:15 08:20 08:30 Temperature Pulse Rate 81 78 89 Pulse Rate [ Anterior Bilateral Throughout] Pulse Rate [ Left Dorsalis Pedis] Pulse Rate [ Left Radial] Pulse Rate [ Right Dorsalis Pedis] Pulse Rate [ Right Radial] Respiratory 18 16 Rate Respiratory Rate [Anterior Bilateral Throughout] Blood Pressure 116/51 115/50 125/55 O2 Sat by Pulse 96 94 Oximetry O2 Sat by Pulse Oximetry [ Anterior Bilateral Throughout] 06/21/17 06/21/17 06/21/17 08:45 09:00 09:01 Temperature Pulse Rate 94 H 93 H 93 H Pulse Rate [ Anterior Bilateral Throughout] Pulse Rate [ Left Dorsalis Pedis] Pulse Rate [ Left Radial] Pulse Rate [ Right Dorsalis Pedis] Pulse Rate [ Right Radial] Respiratory 13 26 H Rate Respiratory Rate [Anterior Bilateral Throughout] Blood Pressure 124/62 126/55 124/62 O2 Sat by Pulse 96 87 Oximetry O2 Sat by Pulse Oximetry [ Anterior Bilateral Throughout] 06/21/17 06/21/17 06/21/17 09:15 09:21 09:30 Temperature Pulse Rate 90 90 84 Pulse Rate [ Anterior Bilateral Throughout] Pulse Rate [ Left Dorsalis Pedis] Pulse Rate [ Left Radial] Pulse Rate [ Right Dorsalis Pedis] Pulse Rate [ Right Radial] Respiratory 15 23 15 Rate Respiratory Rate [Anterior Bilateral Throughout] Blood Pressure 129/52 129/52 120/59 O2 Sat by Pulse 96 98 98 Oximetry O2 Sat by Pulse Oximetry [ Anterior Bilateral Throughout] 06/21/17 06/21/17 06/21/17 09:45 10:00 10:15 Temperature Pulse Rate 76 74 84 Pulse Rate [ Anterior Bilateral Throughout] Pulse Rate [ Left Dorsalis Pedis] Pulse Rate [ Left Radial] Pulse Rate [ Right Dorsalis Pedis] Pulse Rate [ Right Radial] Respiratory 17 13 18 Rate Respiratory Rate [Anterior Bilateral Throughout] Blood Pressure 118/55 112/54 128/64 O2 Sat by Pulse 100 100 97 Oximetry O2 Sat by Pulse Oximetry [ Anterior Bilateral Throughout] 06/21/17 06/21/17 06/21/17 10:30 10:45 11:00 Temperature Pulse Rate 80 75 90 Pulse Rate [ Anterior Bilateral Throughout] Pulse Rate [ Left Dorsalis Pedis] Pulse Rate [ Left Radial] Pulse Rate [ Right Dorsalis Pedis] Pulse Rate [ Right Radial] Respiratory 13 15 17 Rate Respiratory Rate [Anterior Bilateral Throughout] Blood Pressure 119/67 124/63 135/60 O2 Sat by Pulse 100 100 98 Oximetry O2 Sat by Pulse Oximetry [ Anterior Bilateral Throughout] 06/21/17 06/21/17 06/21/17 11:15 11:17 11:30 Temperature Pulse Rate 88 85 85 Pulse Rate [ Anterior Bilateral Throughout] Pulse Rate [ Left Dorsalis Pedis] Pulse Rate [ Left Radial] Pulse Rate [ Right Dorsalis Pedis] Pulse Rate [ Right Radial] Respiratory 16 14 Rate Respiratory Rate [Anterior Bilateral Throughout] Blood Pressure 127/62 127/64 130/64 O2 Sat by Pulse 82 L 99 Oximetry O2 Sat by Pulse Oximetry [ Anterior Bilateral Throughout] 06/21/17 06/21/17 06/21/17 11:32 11:45 11:52 Temperature Pulse Rate 89 88 82 Pulse Rate [ Anterior Bilateral Throughout] Pulse Rate [ Left Dorsalis Pedis] Pulse Rate [ Left Radial] Pulse Rate [ Right Dorsalis Pedis] Pulse Rate [ Right Radial] Respiratory 19 Rate Respiratory Rate [Anterior Bilateral Throughout] Blood Pressure 130/64 132/68 132/68 O2 Sat by Pulse 99 Oximetry O2 Sat by Pulse Oximetry [ Anterior Bilateral Throughout] 06/21/17 06/21/17 06/21/17 12:00 12:15 12:30 Temperature 97.4 F L Pulse Rate 80 86 82 Pulse Rate [ Anterior Bilateral Throughout] Pulse Rate [ Left Dorsalis Pedis] Pulse Rate [ Left Radial] Pulse Rate [ Right Dorsalis Pedis] Pulse Rate [ Right Radial] Respiratory 19 14 15 Rate Respiratory Rate [Anterior Bilateral Throughout] Blood Pressure 122/97 122/57 127/55 O2 Sat by Pulse 99 90 86 Oximetry O2 Sat by Pulse 98 Oximetry [ Anterior Bilateral Throughout] 06/21/17 06/21/17 06/21/17 12:45 13:01 13:08 Temperature Pulse Rate 84 86 88 Pulse Rate [ Anterior Bilateral Throughout] Pulse Rate [ Left Dorsalis Pedis] Pulse Rate [ Left Radial] Pulse Rate [ Right Dorsalis Pedis] Pulse Rate [ Right Radial] Respiratory 13 18 Rate Respiratory Rate [Anterior Bilateral Throughout] Blood Pressure 126/58 123/53 123/53 O2 Sat by Pulse 89 89 Oximetry O2 Sat by Pulse Oximetry [ Anterior Bilateral Throughout] 06/21/17 13:34 Temperature Pulse Rate 85 Pulse Rate [ Anterior Bilateral Throughout] Pulse Rate [ Left Dorsalis Pedis] Pulse Rate [ Left Radial] Pulse Rate [ Right Dorsalis Pedis] Pulse Rate [ Right Radial] Respiratory Rate Respiratory Rate [Anterior Bilateral Throughout] Blood Pressure O2 Sat by Pulse 90 Oximetry O2 Sat by Pulse Oximetry [ Anterior Bilateral Throughout] - General Appearance General appearance: well-nourished, appears stated age, moderate distress EENT: ATNC, PERRL, mucous membranes moist Neck: no JVD Respiratory: Present: Ronchi, Wheezes, Decreased Breath Sounds Cardiology: regular, S1S2 Gastrointestinal: normoactive bowel sounds Integumentary: no rash, other (no edema ) Neurologic: no focal deficit, alert and oriented x3, strength 5/5, CN 3-12 intact Psychiatric: mood/affect appropriate, cooperative - Lab 06/21/17 04:30 06/21/17 04:30 Most recent lab results Calcium 7.9 mg/dL (8.4-10.2) L 06/21/17 04:30 Magnesium 1.70 mg/dL (1.7-2.3) 06/20/17 06:00
[2017-06-22] MEDS: LEVOPHED 8 MG in NACL 0.9% 250ML 242 ML IV SCH ×2 (06:24→13:08)
[2017-06-22] MEDS: ZOSYN/NS 2.25 GM/50ML 2.25 GM/50 ML BAG IV SCH ×3 (06:24→22:05)
[2017-06-22 06:52] LABS: Basophils % (Auto) 0.1 % (0.0-1.8); Eosinophils % (Auto) 0.1 % (0.0-4.3); Hematocrit 29.3 % (30.3-42.9); Hemoglobin 9.5 gm/dl (10.1-14.3); Mean Corpuscular HGB Conc 32 % (30-34); Mean Corpuscular Hemoglobin 32 pg (28-32); Mean Corpuscular Volume 98 fl (79-97); Platelet Count 215 K/mm3 (140-440); Red Cell Distribution Width 17.5 % (13.2-15.2); White Blood Count 7.3 K/mm3 (4.5-11.0)
[2017-06-22 07:30] LABS: Calcium 8.2 mg/dL (8.4-10.2); Chloride 95.6 mmol/L (98-107); Potassium 4.8 mmol/L (3.6-5.0)
[2017-06-22] MEDS: NOVOLOG SUB-Q SCH ×7 (07:30→22:00)
[2017-06-22] MEDS: DUONEB *Not for PRN Use IH SCH ×3 (07:37→20:02)
[2017-06-22] MEDS: LOVENOX SUB-Q SCH (10:59)
[2017-06-22] MEDS: NEURONTIN PO SCH ×2 (11:00→22:00)
[2017-06-22] MEDS: PROTONIX PO SCH (11:00)
[2017-06-22] MEDS: MORPHINE IV PRN ×2 (11:00→19:45)
--- NOTE | 2017-06-22 11:45 | Progress Note ---
Assessment and Plan - Patient Problems (1) Hypoglycemia associated with diabetes Current Visit: Yes Status: Acute (2) Acute UTI Current Visit: Yes Status: Acute (3) Hyperglycemia Current Visit: Yes Status: Acute (4) Sepsis Current Visit: Yes Status: Acute Qualifiers: Sepsis type: sepsis due to unspecified organism Qualified Code(s): A41.9 - Sepsis, unspecified organism (5) UTI (urinary tract infection) Current Visit: Yes Status: Acute Qualifiers: Urinary tract infection type: acute cystitis Hematuria presence: without hematuria Qualified Code(s): N30.00 - Acute cystitis without hematuria (6) ARF (acute renal failure) Current Visit: No Status: Acute Qualifiers: Acute renal failure type: unspecified Qualified Code(s): N17.9 - Acute kidney failure, unspecified (7) Acute delirium Current Visit: No Status: Acute (8) Acute hypoxemic respiratory failure Current Visit: No Status: Acute (9) Septic shock Current Visit: No Status: Acute (10) Diabetes Current Visit: No Status: Chronic Subjective Principal diagnosis: sepsis, ESRD Interval history: awake but confused Objective Vital Signs - 12hr 06/22/17 06/22/17 06/22/17 00:00 00:15 00:30 Temperature 98.0 F Pulse Rate 81 84 72 Pulse Rate [ Anterior Bilateral Throughout] Pulse Rate [ 72 Left Dorsalis Pedis] Pulse Rate [ 72 Left Radial] Pulse Rate [ 72 Right Dorsalis Pedis] Pulse Rate [ 72 Right Radial] Respiratory 14 17 16 Rate Respiratory Rate [Anterior Bilateral Throughout] Blood Pressure 130/58 127/60 125/57 O2 Sat by Pulse 98 98 97 Oximetry 06/22/17 06/22/17 06/22/17 00:45 01:00 01:15 Temperature Pulse Rate 77 76 80 Pulse Rate [ Anterior Bilateral Throughout] Pulse Rate [ Left Dorsalis Pedis] Pulse Rate [ Left Radial] Pulse Rate [ Right Dorsalis Pedis] Pulse Rate [ Right Radial] Respiratory 19 16 16 Rate Respiratory Rate [Anterior Bilateral Throughout] Blood Pressure 130/61 128/58 132/59 O2 Sat by Pulse 97 96 98 Oximetry 06/22/17 06/22/17 06/22/17 01:30 01:45 02:00 Temperature Pulse Rate 71 82 82 Pulse Rate [ Anterior Bilateral Throughout] Pulse Rate [ Left Dorsalis Pedis] Pulse Rate [ Left Radial] Pulse Rate [ Right Dorsalis Pedis] Pulse Rate [ Right Radial] Respiratory 16 15 15 Rate Respiratory Rate [Anterior Bilateral Throughout] Blood Pressure 129/55 132/46 125/62 O2 Sat by Pulse 98 96 98 Oximetry 06/22/17 06/22/17 06/22/17 02:15 02:30 02:45 Temperature Pulse Rate 78 80 82 Pulse Rate [ Anterior Bilateral Throughout] Pulse Rate [ Left Dorsalis Pedis] Pulse Rate [ Left Radial] Pulse Rate [ Right Dorsalis Pedis] Pulse Rate [ Right Radial] Respiratory 11 L 13 13 Rate Respiratory Rate [Anterior Bilateral Throughout] Blood Pressure 132/60 133/61 130/59 O2 Sat by Pulse 98 99 98 Oximetry 06/22/17 06/22/17 06/22/17 03:00 03:15 03:24 Temperature Pulse Rate 77 78 80 Pulse Rate [ Anterior Bilateral Throughout] Pulse Rate [ Left Dorsalis Pedis] Pulse Rate [ Left Radial] Pulse Rate [ Right Dorsalis Pedis] Pulse Rate [ Right Radial] Respiratory 19 15 21 Rate Respiratory Rate [Anterior Bilateral Throughout] Blood Pressure 131/60 132/58 131/60 O2 Sat by Pulse 97 98 97 Oximetry 06/22/17 06/22/17 06/22/17 03:30 03:45 04:00 Temperature 98.5 F Pulse Rate 69 77 84 Pulse Rate [ Anterior Bilateral Throughout] Pulse Rate [ 76 Left Dorsalis Pedis] Pulse Rate [ Left Radial] Pulse Rate [ 76 Right Dorsalis Pedis] Pulse Rate [ 76 Right Radial] Respiratory 17 17 15 Rate Respiratory Rate [Anterior Bilateral Throughout] Blood Pressure 126/62 131/62 121/60 O2 Sat by Pulse 97 97 97 Oximetry 06/22/17 06/22/17 06/22/17 04:15 04:30 04:45 Temperature Pulse Rate 92 H 82 79 Pulse Rate [ Anterior Bilateral Throughout] Pulse Rate [ Left Dorsalis Pedis] Pulse Rate [ Left Radial] Pulse Rate [ Right Dorsalis Pedis] Pulse Rate [ Right Radial] Respiratory 18 14 15 Rate Respiratory Rate [Anterior Bilateral Throughout] Blood Pressure 132/63 121/51 121/51 O2 Sat by Pulse 98 99 99 Oximetry 06/22/17 06/22/17 06/22/17 05:00 05:15 05:30 Temperature Pulse Rate 83 82 79 Pulse Rate [ Anterior Bilateral Throughout] Pulse Rate [ Left Dorsalis Pedis] Pulse Rate [ Left Radial] Pulse Rate [ Right Dorsalis Pedis] Pulse Rate [ Right Radial] Respiratory 12 12 16 Rate Respiratory Rate [Anterior Bilateral Throughout] Blood Pressure 134/59 142/60 134/61 O2 Sat by Pulse 99 99 100 Oximetry 06/22/17 06/22/17 06/22/17 05:45 06:00 06:15 Temperature Pulse Rate 90 80 83 Pulse Rate [ Anterior Bilateral Throughout] Pulse Rate [ Left Dorsalis Pedis] Pulse Rate [ Left Radial] Pulse Rate [ Right Dorsalis Pedis] Pulse Rate [ Right Radial] Respiratory 16 11 L 20 Rate Respiratory Rate [Anterior Bilateral Throughout] Blood Pressure 134/61 129/56 129/56 O2 Sat by Pulse 99 99 100 Oximetry 06/22/17 06/22/17 06/22/17 06:31 06:45 07:01 Temperature Pulse Rate 88 82 83 Pulse Rate [ Anterior Bilateral Throughout] Pulse Rate [ Left Dorsalis Pedis] Pulse Rate [ Left Radial] Pulse Rate [ Right Dorsalis Pedis] Pulse Rate [ Right Radial] Respiratory 17 10 L 13 Rate Respiratory Rate [Anterior Bilateral Throughout] Blood Pressure 135/61 135/61 126/59 O2 Sat by Pulse 98 100 98 Oximetry 06/22/17 06/22/17 06/22/17 07:15 07:19 07:31 Temperature Pulse Rate 79 86 Pulse Rate [ Anterior Bilateral Throughout] Pulse Rate [ Left Dorsalis Pedis] Pulse Rate [ Left Radial] Pulse Rate [ Right Dorsalis Pedis] Pulse Rate [ Right Radial] Respiratory 15 16 Rate Respiratory Rate [Anterior Bilateral Throughout] Blood Pressure 126/59 116/51 O2 Sat by Pulse 100 98 100 Oximetry 06/22/17 06/22/17 06/22/17 07:37 07:42 07:45 Temperature Pulse Rate 87 Pulse Rate [ 82 85 Anterior Bilateral Throughout] Pulse Rate [ Left Dorsalis Pedis] Pulse Rate [ Left Radial] Pulse Rate [ Right Dorsalis Pedis] Pulse Rate [ Right Radial] Respiratory 17 Rate Respiratory 20 20 Rate [Anterior Bilateral Throughout] Blood Pressure 124/56 O2 Sat by Pulse 97 Oximetry 06/22/17 06/22/17 06/22/17 08:00 08:01 08:15 Temperature 99.1 F Pulse Rate 89 83 Pulse Rate [ Anterior Bilateral Throughout] Pulse Rate [ Left Dorsalis Pedis] Pulse Rate [ Left Radial] Pulse Rate [ Right Dorsalis Pedis] Pulse Rate [ Right Radial] Respiratory 21 13 Rate Respiratory Rate [Anterior Bilateral Throughout] Blood Pressure 120/61 120/54 O2 Sat by Pulse 99 98 Oximetry 06/22/17 06/22/17 06/22/17 08:31 08:45 09:01 Temperature Pulse Rate 84 88 88 Pulse Rate [ Anterior Bilateral Throughout] Pulse Rate [ Left Dorsalis Pedis] Pulse Rate [ Left Radial] Pulse Rate [ Right Dorsalis Pedis] Pulse Rate [ Right Radial] Respiratory 15 16 16 Rate Respiratory Rate [Anterior Bilateral Throughout] Blood Pressure 120/61 120/61 125/60 O2 Sat by Pulse 99 90 97 Oximetry 06/22/17 06/22/17 09:15 09:31 Temperature Pulse Rate 90 85 Pulse Rate [ Anterior Bilateral Throughout] Pulse Rate [ Left Dorsalis Pedis] Pulse Rate [ Left Radial] Pulse Rate [ Right Dorsalis Pedis] Pulse Rate [ Right Radial] Respiratory 13 18 Rate Respiratory Rate [Anterior Bilateral Throughout] Blood Pressure 125/60 124/56 O2 Sat by Pulse 96 98 Oximetry Constitutional: no acute distress, other (awake) Eyes: non-icteric ENT: oropharynx moist Neck: supple Effort: normal Ascultation: Bilateral: clear Cardiovascular: regular rate and rhythm (no mrg; rhythm appears to be NSR with PACs) Gastrointestinal: normoactive bowel sounds, soft, non-tender, non-distended Integumentary: normal Extremities: no cyanosis, no edema, pink and warm Neurologic: normal mental status (except confusiong), non-focal exam (moves all extremities), pupils equal and round, CN II-XII normal Psychiatric: mood appropriate, affect normal CBC and BMP: 06/22/17 06:20 06/22/17 06:20 ABG, PT/INR, D-dimer: ABG POC ABG pH 7.391 (7.35-7.45) 06/21/17 13:29 POC ABG pCO2 44.0 (35-45) 06/21/17 13:29 POC ABG pO2 50 (80-105) L 06/21/17 13:29 POC ABG HCO3 26.7 06/21/17 13:29 POC ABG Total CO2 28 06/21/17 13:29 POC ABG O2 Sat 84 06/21/17 13:29 PT/INR, D-dimer PT 16.9 Sec. (12.2-14.9) H 06/15/17 20:21 INR 1.31 (0.87-1.13) H 06/15/17 20:21 D-Dimer 985.05 ng/mlDDU (0-234) H 06/15/17 20:21 Abnormal lab findings: Abnormal Labs 06/15/17 06/15/17 06/15/17 17:52 19:00 19:00 WBC 3.7 L RBC 3.25 L Hgb Hct MCV RDW 15.8 H Lymph % (Auto) [place] % (Auto) 7.7 H Lymph # 0.9 L [place] # Seg Neutrophils % Seg Neutrophils # PT INR D-Dimer POC ABG pH POC ABG pCO2 POC ABG pO2 VBG pH Sodium Chloride 96.3 L Carbon Dioxide BUN 32 H Creatinine 3.5 H Glucose 428 H POC Glucose > 500 H Hemoglobin A1c Calcium Direct Bilirubin AST ALT Alkaline Phosphatase Total Creatine Kinase C-Reactive Protein NT-Pro-B Natriuret Pep Albumin Ur Specific [place] Urine WBC (Auto) U Epithel Cells (Auto) 06/15/17 06/15/17 06/15/17 19:00 19:35 20:00 WBC RBC Hgb Hct MCV RDW Lymph % (Auto) [place] % (Auto) Lymph # [place] # Seg Neutrophils % Seg Neutrophils # PT INR D-Dimer POC ABG pH POC ABG pCO2 POC ABG pO2 VBG pH 7.261 L Sodium Chloride Carbon Dioxide BUN Creatinine Glucose POC Glucose 371 H 384 H Hemoglobin A1c Calcium Direct Bilirubin AST ALT Alkaline Phosphatase Total Creatine Kinase C-Reactive Protein NT-Pro-B Natriuret Pep Albumin Ur Specific [place] Urine WBC (Auto) U Epithel Cells (Auto) 06/15/17 06/15/17 06/15/17 20:21 20:21 20:21 WBC RBC Hgb Hct MCV RDW Lymph % (Auto) [place] % (Auto) Lymph # [place] # Seg Neutrophils % Seg Neutrophils # PT 16.9 H INR 1.31 H D-Dimer 985.05 H POC ABG pH POC ABG pCO2 POC ABG pO2 VBG pH Sodium Chloride Carbon Dioxide BUN Creatinine Glucose POC Glucose Hemoglobin A1c Calcium Direct Bilirubin AST ALT Alkaline Phosphatase Total Creatine Kinase 147 H C-Reactive Protein NT-Pro-B Natriuret Pep 7290 H Albumin Ur Specific [place] Urine WBC (Auto) U Epithel Cells (Auto) 1106/16/17 06/16/17 Unknown 10:13 13:23 WBC RBC Hgb Hct MCV RDW Lymph % (Auto) [place] % (Auto) Lymph # [place] # Seg Neutrophils % Seg Neutrophils # PT INR D-Dimer POC ABG pH POC ABG pCO2 POC ABG pO2 VBG pH Sodium Chloride Carbon Dioxide BUN Creatinine Glucose POC Glucose 290 H 301 H Hemoglobin A1c Calcium Direct Bilirubin AST ALT Alkaline Phosphatase Total Creatine Kinase C-Reactive Protein NT-Pro-B Natriuret Pep Albumin Ur Specific [place] Urine WBC (Auto) 72.0 H U Epithel Cells (Auto) 06/16/17 06/17/17 06/17/17 17:36 00:16 00:35 WBC RBC Hgb Hct MCV RDW Lymph % (Auto) [place] % (Auto) Lymph # [place] # Seg Neutrophils % Seg Neutrophils # PT INR D-Dimer POC ABG pH POC ABG pCO2 POC ABG pO2 VBG pH Sodium Chloride Carbon Dioxide BUN Creatinine Glucose POC Glucose 120 H < 40 L 188 H Hemoglobin A1c Calcium Direct Bilirubin AST ALT Alkaline Phosphatase Total Creatine Kinase C-Reactive Protein NT-Pro-B Natriuret Pep Albumin Ur Specific [place] Urine WBC (Auto) U Epithel Cells (Auto) 06/17/17 06/17/17 06/17/17 03:19 03:19 03:19 WBC RBC 3.31 L Hgb Hct MCV RDW 16.0 H Lymph % (Auto) [place] % (Auto) Lymph # 1.1 L [place] # Seg Neutrophils % 76.0 H Seg Neutrophils # PT INR D-Dimer POC ABG pH POC ABG pCO2 POC ABG pO2 VBG pH Sodium Chloride Carbon Dioxide BUN 45 H Creatinine 4.5 H Glucose 192 H POC Glucose Hemoglobin A1c 11.5 H Calcium 8.1 L Direct Bilirubin AST ALT Alkaline Phosphatase Total Creatine Kinase C-Reactive Protein NT-Pro-B Natriuret Pep Albumin Ur Specific [place] Urine WBC (Auto) U Epithel Cells (Auto) 06/17/17 06/17/17 06/17/17 03:51 06:44 11:15 WBC RBC Hgb Hct MCV RDW Lymph % (Auto) [place] % (Auto) Lymph # [place] # Seg Neutrophils % Seg Neutrophils # PT INR D-Dimer POC ABG pH POC ABG pCO2 POC ABG pO2 VBG pH Sodium Chloride Carbon Dioxide BUN Creatinine Glucose POC Glucose 184 H 326 H 380 H Hemoglobin A1c Calcium Direct Bilirubin AST ALT Alkaline Phosphatase Total Creatine Kinase C-Reactive Protein NT-Pro-B Natriuret Pep Albumin Ur Specific [place] Urine WBC (Auto) U Epithel Cells (Auto) 06/17/17 06/17/17 06/18/17 17:56 23:35 00:02 WBC RBC Hgb Hct MCV RDW Lymph % (Auto) [place] % (Auto) Lymph # [place] # Seg Neutrophils % Seg Neutrophils # PT INR D-Dimer POC ABG pH 7.314 L POC ABG pCO2 48.8 H POC ABG pO2 53 L VBG pH Sodium Chloride Carbon Dioxide BUN Creatinine Glucose POC Glucose 59 L < 40 L Hemoglobin A1c Calcium Direct Bilirubin AST ALT Alkaline Phosphatase Total Creatine Kinase C-Reactive Protein NT-Pro-B Natriuret Pep Albumin Ur Specific [place] Urine WBC (Auto) U Epithel Cells (Auto) 06/18/17 06/18/17 06/18/17 00:08 00:25 00:43 WBC RBC Hgb Hct MCV RDW Lymph % (Auto) [place] % (Auto) Lymph # [place] # Seg Neutrophils % Seg Neutrophils # PT INR D-Dimer POC ABG pH POC ABG pCO2 POC ABG pO2 VBG pH Sodium 136 L Chloride 95.8 L Carbon Dioxide BUN 21 H Creatinine 2.9 H Glucose 131 H POC Glucose 151 H Hemoglobin A1c Calcium 8.2 L Direct Bilirubin AST ALT Alkaline Phosphatase Total Creatine Kinase C-Reactive Protein NT-Pro-B Natriuret Pep Albumin Ur Specific [place] 1.041 H Urine WBC (Auto) 67.0 H U Epithel Cells (Auto) 24.0 H 06/18/17 06/18/17 06/18/17 02:11 05:00 05:00 WBC RBC 3.22 L Hgb Hct MCV RDW 16.2 H Lymph % (Auto) 10.3 L [place] % (Auto) Lymph # 0.7 L [place] # Seg Neutrophils % 81.3 H Seg Neutrophils # PT INR D-Dimer POC ABG pH POC ABG pCO2 POC ABG pO2 VBG pH Sodium Chloride Carbon Dioxide BUN 21 H Creatinine 3.2 H Glucose 159 H POC Glucose 183 H Hemoglobin A1c Calcium 7.9 L Direct Bilirubin 0.3 H AST 73 H ALT 112 H Alkaline Phosphatase 207 H Total Creatine Kinase C-Reactive Protein NT-Pro-B Natriuret Pep Albumin 3.4 L Ur Specific [place] Urine WBC (Auto) U Epithel Cells (Auto) 1106/18/17 06/18/17 05:31 09:25 12:30 WBC RBC Hgb Hct MCV RDW Lymph % (Auto) [place] % (Auto) Lymph # [place] # Seg Neutrophils % Seg Neutrophils # PT INR D-Dimer POC ABG pH POC ABG pCO2 POC ABG pO2 72 L VBG pH Sodium Chloride Carbon Dioxide BUN Creatinine Glucose POC Glucose 181 H 286 H Hemoglobin A1c Calcium Direct Bilirubin AST ALT Alkaline Phosphatase Total Creatine Kinase C-Reactive Protein NT-Pro-B Natriuret Pep Albumin Ur Specific [place] Urine WBC (Auto) U Epithel Cells (Auto) 06/18/17 06/18/17 06/18/17 13:57 21:30 22:45 WBC RBC Hgb Hct MCV RDW Lymph % (Auto) [place] % (Auto) Lymph # [place] # Seg Neutrophils % Seg Neutrophils # PT INR D-Dimer POC ABG pH POC ABG pCO2 POC ABG pO2 VBG pH Sodium Chloride Carbon Dioxide BUN Creatinine Glucose POC Glucose 67 L 206 H Hemoglobin A1c Calcium Direct Bilirubin AST ALT Alkaline Phosphatase Total Creatine Kinase C-Reactive Protein 2.50 H NT-Pro-B Natriuret Pep Albumin Ur Specific [place] Urine WBC (Auto) U Epithel Cells (Auto) 06/19/17 06/19/17 06/19/17 00:56 04:50 04:50 WBC RBC 3.02 L Hgb 9.7 L Hct 29.4 L MCV RDW 16.9 H Lymph % (Auto) 5.9 L [place] % (Auto) Lymph # 0.5 L [place] # Seg Neutrophils % 87.3 H Seg Neutrophils # PT INR D-Dimer POC ABG pH POC ABG pCO2 POC ABG pO2 VBG pH Sodium 136 L Chloride 96.2 L Carbon Dioxide BUN 27 H Creatinine 4.3 H Glucose 111 H POC Glucose 150 H Hemoglobin A1c Calcium 8.0 L Direct Bilirubin AST 51 H ALT 95 H Alkaline Phosphatase 236 H Total Creatine Kinase C-Reactive Protein NT-Pro-B Natriuret Pep Albumin 3.3 L Ur Specific [place] Urine WBC (Auto) U Epithel Cells (Auto) 06/19/17 06/19/17 06/19/17 07:47 12:36 15:18 WBC RBC Hgb Hct MCV RDW Lymph % (Auto) [place] % (Auto) Lymph # [place] # Seg Neutrophils % Seg Neutrophils # PT INR D-Dimer POC ABG pH 7.256 L POC ABG pCO2 48.3 H POC ABG pO2 62 L VBG pH Sodium Chloride Carbon Dioxide BUN Creatinine Glucose POC Glucose 108 H 181 H Hemoglobin A1c Calcium Direct Bilirubin AST ALT Alkaline Phosphatase Total Creatine Kinase C-Reactive Protein NT-Pro-B Natriuret Pep Albumin Ur Specific [place] Urine WBC (Auto) U Epithel Cells (Auto) 06/19/17 06/19/17 06/19/17 18:22 18:23 21:40 WBC RBC Hgb Hct MCV RDW Lymph % (Auto) [place] % (Auto) Lymph # [place] # Seg Neutrophils % Seg Neutrophils # PT INR D-Dimer POC ABG pH 7.247 L POC ABG pCO2 50.5 H POC ABG pO2 108 H VBG pH Sodium Chloride Carbon Dioxide BUN Creatinine Glucose POC Glucose 177 H 217 H Hemoglobin A1c Calcium Direct Bilirubin AST ALT Alkaline Phosphatase Total Creatine Kinase C-Reactive Protein NT-Pro-B Natriuret Pep Albumin Ur Specific [place] Urine WBC (Auto) U Epithel Cells (Auto) 06/20/17 06/20/17 06/20/17 00:15 06:00 06:00 WBC 11.7 H RBC 2.78 L Hgb 8.7 L Hct 26.8 L MCV RDW 17.1 H Lymph % (Auto) 5.6 L [place] % (Auto) 7.9 H Lymph # 0.7 L [place] # 0.9 H Seg Neutrophils % 86.1 H Seg Neutrophils # 10.0 H PT INR D-Dimer POC ABG pH POC ABG pCO2 POC ABG pO2 VBG pH Sodium Chloride Carbon Dioxide BUN Creatinine 3.0 H Glucose 167 H POC Glucose 243 H Hemoglobin A1c Calcium 7.7 L Direct Bilirubin AST ALT Alkaline Phosphatase Total Creatine Kinase C-Reactive Protein NT-Pro-B Natriuret Pep Albumin Ur Specific [place] Urine WBC (Auto) U Epithel Cells (Auto) 06/20/17 06/20/17 06/20/17 09:01 10:53 11:10 WBC RBC Hgb Hct MCV RDW Lymph % (Auto) [place] % (Auto) Lymph # [place] # Seg Neutrophils % Seg Neutrophils # PT INR D-Dimer POC ABG pH POC ABG pCO2 POC ABG pO2 57 L VBG pH Sodium Chloride Carbon Dioxide BUN Creatinine Glucose POC Glucose 199 H 205 H Hemoglobin A1c Calcium Direct Bilirubin AST ALT Alkaline Phosphatase Total Creatine Kinase C-Reactive Protein NT-Pro-B Natriuret Pep Albumin Ur Specific [place] Urine WBC (Auto) U Epithel Cells (Auto) 06/20/17 06/20/17 06/20/17 16:16 21:34 22:02 WBC RBC Hgb Hct MCV RDW Lymph % (Auto) [place] % (Auto) Lymph # [place] # Seg Neutrophils % Seg Neutrophils # PT INR D-Dimer POC ABG pH POC ABG pCO2 POC ABG pO2 VBG pH Sodium Chloride Carbon Dioxide BUN Creatinine Glucose POC Glucose 233 H 150 H 158 H Hemoglobin A1c Calcium Direct Bilirubin AST ALT Alkaline Phosphatase Total Creatine Kinase C-Reactive Protein NT-Pro-B Natriuret Pep Albumin Ur Specific [place] Urine WBC (Auto) U Epithel Cells (Auto) 06/21/17 06/21/17 06/21/17 04:30 04:30 07:35 WBC RBC 2.63 L Hgb 8.4 L Hct 25.6 L MCV RDW 17.4 H Lymph % (Auto) 8.6 L [place] % (Auto) Lymph # 0.8 L [place] # Seg Neutrophils % 84.0 H Seg Neutrophils # 8.0 H PT INR D-Dimer POC ABG pH POC ABG pCO2 POC ABG pO2 VBG pH Sodium 136 L Chloride 96.0 L Carbon Dioxide BUN 28 H Creatinine 4.1 H Glucose 160 H POC Glucose 217 H Hemoglobin A1c Calcium 7.9 L Direct Bilirubin AST ALT Alkaline Phosphatase Total Creatine Kinase C-Reactive Protein NT-Pro-B Natriuret Pep Albumin Ur Specific [place] Urine WBC (Auto) U Epithel Cells (Auto) 06/21/17 06/21/17 06/21/17 11:33 13:29 16:47 WBC RBC Hgb Hct MCV RDW Lymph % (Auto) [place] % (Auto) Lymph # [place] # Seg Neutrophils % Seg Neutrophils # PT INR D-Dimer POC ABG pH POC ABG pCO2 POC ABG pO2 50 L VBG pH Sodium Chloride Carbon Dioxide BUN Creatinine Glucose POC Glucose 170 H 216 H Hemoglobin A1c Calcium Direct Bilirubin AST ALT Alkaline Phosphatase Total Creatine Kinase C-Reactive Protein NT-Pro-B Natriuret Pep Albumin Ur Specific [place] Urine WBC (Auto) U Epithel Cells (Auto) 06/21/17 06/22/17 06/22/17 21:06 06:20 06:20 WBC RBC 3.00 L Hgb 9.5 L Hct 29.3 L MCV 98 H RDW 17.5 H Lymph % (Auto) 11.0 L [place] % (Auto) Lymph # 0.8 L [place] # Seg Neutrophils % 86.8 H Seg Neutrophils # PT INR D-Dimer POC ABG pH POC ABG pCO2 POC ABG pO2 VBG pH Sodium Chloride 95.6 L Carbon Dioxide 21 L BUN 19 H Creatinine 2.9 H Glucose 187 H POC Glucose 141 H Hemoglobin A1c Calcium 8.2 L Direct Bilirubin AST ALT Alkaline Phosphatase Total Creatine Kinase C-Reactive Protein NT-Pro-B Natriuret Pep Albumin Ur Specific [place] Urine WBC (Auto) U Epithel Cells (Auto) 06/22/17 06:31 WBC RBC Hgb Hct MCV RDW Lymph % (Auto) [place] % (Auto) Lymph # [place] # Seg Neutrophils % Seg Neutrophils # PT INR D-Dimer POC ABG pH POC ABG pCO2 POC ABG pO2 VBG pH Sodium Chloride Carbon Dioxide BUN Creatinine Glucose POC Glucose 197 H Hemoglobin A1c Calcium Direct Bilirubin AST ALT Alkaline Phosphatase Total Creatine Kinase C-Reactive Protein NT-Pro-B Natriuret Pep Albumin Ur Specific [place] Urine WBC (Auto) U Epithel Cells (Auto)
--- NOTE | 2017-06-22 11:49 | Progress Note ---
Assessment and Plan Assessment and plan: --Septic shock; on Levophed, antibiotics and supportive care Gentle IV hydration as needed --Sepsis secondary to urinary tract infection; continue empiric antibiotics, follow cultures, ID if needed --End-stage renal disease on hemodialysis; dialysis per schedule, nephrology consulted --Type 2 diabetes mellitus; uncontrolled , slight insulin was not given by the nurse for unknown reason Accu-Chek sliding scale coverage and ADA diet and insulin, A1c 11.5, possible home health nurse at discharge --CHF /acute diastolic CHF, left ventricle function ejection [id number] cannot use diuretics in view of hypotension --DVT prophylaxis; with heparin --Full CODE STATUS --Restraints for safety Plan of care discussed with patient's nurse, her . The high probability of a clinically significant, sudden or life threatening deterioration of the [ID,cardio ,renal] system(s) required my full and direct attention, intervention and personal management. The aggregate critical care time was [31 ] minutes. This time is in addition to time spent performing reported procedures but includes the following: [x] Data Review and interpretation [x] Patient assessment and monitoring of vital signs [x] Documentation, counseling [x] Medication orders and management History Interval history: Patient seen and examined this morning Medical records reviewed, patient's is at the bedside and has multiple questions All of them discussed with him Patient feels slightly better, pressor dependent Alert and awake, cachectic afebrile Vital signs reviewed Hospitalist Physical - Constitutional Vitals: Temp Pulse Resp BP Pulse Ox 99.1 F 85 18 124/56 98 06/22/17 08:00 06/22/17 09:31 06/22/17 09:31 06/22/17 09:31 06/22/17 09:31 General appearance: Present: no acute distress, well-nourished, other (lethergic ) - EENT Eyes: Present: PERRL, EOM intact - Neck Neck: Present: supple, normal ROM - Respiratory Respiratory effort: normal, labored Respiratory: bilateral: diminished, rhonchi, negative: rales, wheezing - Cardiovascular Rhythm: regular Heart Sounds: Present: S1 & S2 - Extremities Extremities: no ischemia, No edema - Abdominal General gastrointestinal: soft, non-tender, non-distended, normal bowel sounds - Integumentary Integumentary: Present: clear, warm - Psychiatric Psychiatric: appropriate mood/affect, other (infused at times) - Neurologic Neurologic: moves all extremities Results - Labs CBC & Chem 7: 06/22/17 06:20 06/22/17 06:20 Labs: Laboratory Last Values WBC 7.3 K/mm3 (4.5-11.0) 06/22/17 06:20 RBC 3.00 M/mm3 (3.65-5.03) L 06/22/17 06:20 Hgb 9.5 gm/dl (10.1-14.3) L 06/22/17 06:20 Hct 29.3 % (30.3-42.9) L 06/22/17 06:20 MCV 98 fl (79-97) H 06/22/17 06:20 MCH 32 pg (28-32) 06/22/17 06:20 MCHC 32 % (30-34) 06/22/17 06:20 RDW 17.5 % (13.2-15.2) H 06/22/17 06:20 Plt Count 215 K/mm3 (140-440) 06/22/17 06:20 Lymph % (Auto) 11.0 % (13.4-35.0) L 06/22/17 06:20 [place] % (Auto) 2.0 % (0.0-7.3) 06/22/17 06:20 Eos % (Auto) 0.1 % (0.0-4.3) 06/22/17 06:20 Baso % (Auto) 0.1 % (0.0-1.8) 06/22/17 06:20 Lymph # 0.8 K/mm3 (1.2-5.4) L 06/22/17 06:20 [place] # 0.1 K/mm3 (0.0-0.8) 06/22/17 06:20 Eos # 0.0 K/mm3 (0.0-0.4) 06/22/17 06:20 Baso # 0.0 K/mm3 (0.0-0.1) 06/22/17 06:20 Seg Neutrophils % 86.8 % (40.0-70.0) H 06/22/17 06:20 Seg Neutrophils # 6.3 K/mm3 (1.8-7.7) 06/22/17 06:20 PT 16.9 Sec. (12.2-14.9) H 06/15/17 20:21 INR 1.31 (0.87-1.13) H 06/15/17 20:21 APTT 35.3 Sec. (24.2-36.6) 06/15/17 20:21 D-Dimer 985.05 ng/mlDDU (0-234) H 06/15/17 20:21 POC ABG pH 7.391 (7.35-7.45) 06/21/17 13:29 POC ABG pCO2 44.0 (35-45) 06/21/17 13:29 POC ABG pO2 50 (80-105) L 06/21/17 13:29 POC ABG HCO3 26.7 06/21/17 13:29 POC ABG Total CO2 28 06/21/17 13:29 POC ABG O2 Sat 84 06/21/17 13:29 POC ABG Base Excess 2 06/21/17 13:29 VBG pH 7.261 (7.320-7.420) L 06/15/17 19:00 FiO2 40 % 06/21/17 13:29 Sodium 138 mmol/L (137-145) 06/22/17 06:20 Potassium 4.8 mmol/L (3.6-5.0) 06/22/17 06:20 Chloride 95.6 mmol/L (98-107) L 06/22/17 06:20 Carbon Dioxide 21 mmol/L (22-30) L 06/22/17 06:20 Anion Gap 26 mmol/L 06/22/17 06:20 BUN 19 mg/dL (7-17) H 06/22/17 06:20 Creatinine 2.9 mg/dL (0.7-1.2) H 06/22/17 06:20 Estimated GFR 19 ml/min 06/22/17 06:20 BUN/Creatinine Ratio 7 % 06/22/17 06:20 Glucose 187 mg/dL (65-100) H 06/22/17 06:20 POC Glucose 197 (70-105) H 06/22/17 06:31 Hemoglobin A1c 11.5 % (4-6) H 06/17/17 03:19 Lactic Acid 1.50 mmol/L (0.7-2.0) 06/17/17 15:12 Calcium 8.2 mg/dL (8.4-10.2) L 06/22/17 06:20 Magnesium 1.70 mg/dL (1.7-2.3) 06/20/17 06:00 Total Bilirubin 1.00 mg/dL (0.1-1.2) 06/19/17 04:50 Direct Bilirubin 0.3 mg/dL (0-0.2) H 06/18/17 05:00 Indirect Bilirubin 0.3 mg/dL 06/18/17 05:00 AST 51 units/L (5-40) H 06/19/17 04:50 ALT 95 units/L (7-56) H 06/19/17 04:50 Alkaline Phosphatase 236 units/L (35-129) H 06/19/17 04:50 Total Creatine Kinase 124 units/L (30-135) 06/16/17 10:25 CK-MB (CK-2) 1.9 ng/mL (0.0-4.0) 06/16/17 10:25 CK-MB (CK-2) Rel Index 1.5 (0-4) 06/16/17 10:25 Troponin T < 0.010 ng/mL (0.00-0.029) 06/16/17 10:25 C-Reactive Protein 2.50 mg/dL (0.00-1.30) H 06/18/17 13:57 NT-Pro-B Natriuret Pep 7290 pg/mL (0-900) H 06/15/17 20:21 Total Protein 6.3 g/dL (6.3-8.2) 06/19/17 04:50 Albumin 3.3 g/dL (3.9-5) L 06/19/17 04:50 Albumin/Globulin Ratio 1.1 % 06/19/17 04:50 TSH 0.415 mlU/mL (0.270-4.200) 06/17/17 15:12 Urine Color [place] (Yellow) 06/18/17 00:25 Urine Turbidity Slightly cloudy (Clear) 06/18/17 00:25 Urine pH 5.0 (5.0-7.0) 06/18/17 00:25 Ur Specific [place] 1.041 (1.003-1.030) H 06/18/17 00:25 Urine Protein 100 mg/dl mg/dL (Negative) 06/18/17 00:25 Urine Glucose (UA) 50 mg/dL (Negative) 06/18/17 00:25 Urine Ketones Neg mg/dL (Negative) 06/18/17 00:25 Urine Blood Sm (Negative) 06/18/17 00:25 Urine Nitrite Neg (Negative) 06/18/17 00:25 Urine Bilirubin Neg (Negative) 06/18/17 00:25 Urine Ictotest Negative (Negative) 06/15/17 Unknown Urine Urobilinogen < 2.0 mg/dL (<2.0) 06/18/17 00:25 Ur Leukocyte Esterase Mod (Negative) 06/18/17 00:25 Urine WBC (Auto) 67.0 /HPF (0.0-6.0) H 06/18/17 00:25 Urine RBC (Auto) 25.0 /HPF (0.0-6.0) 06/18/17 00:25 U Epithel Cells (Auto) 24.0 /HPF (0-13.0) H 06/18/17 00:25 Urine Bacteria (Auto) 1+ /HPF (Negative) 06/18/17 00:25 Urine WBC Clumps 2+ /HPF 06/18/17 00:25 Amorphous Crystals 2+ 06/18/17 00:25 Hyaline Casts 3 /LPF 06/18/17 00:25 Urine Mucus Few /HPF 06/18/17 00:25 Rheumatoid Factor < 10 IU/ml (0-13) 06/18/17 14:51 HIV 1&2 Antibody Rapid Non react (Non React) 06/18/17 14:51 HIV P24 Antigen Non react (Non React) 06/18/17 14:51
--- NOTE | 2017-06-22 11:58 | Progress Note ---
Assessment and Plan - Patient Problems (1) Altered mental status Current Visit: Yes Status: Acute Qualifiers: Altered mental status type: transient alteration of awareness Qualified Code(s): R40.4 - Transient alteration of awareness Plan to address problem: Continue Neuro monitoring. 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 (3) History of nephrectomy, unilateral Current Visit: No Status: Acute (4) HTN (hypertension) Current Visit: No Status: Chronic Plan to address problem: Blood pressure is now low. Patient is off of hypertensive medications. Follow- up Subjective Date of service: 06/22/17 Principal diagnosis: sepsis, ESRD Interval history: Patient seen lying in bed. She is a bit confused. is not at the bedside. Nurse reports incontinence of urine and stool Objective - Exam Narrative Exam: Elderly -[place] female lying in bed in no acute distress HEENT: NCAT, pink oral mucous membrane Neck: Supple, no venous distention CVS: S1S2 RRR with no murmur, rub or gallop Chest: Clear to auscultation Abdomen: Protuberant, soft, nontender, no organomegaly, bowel sounds are present Extremities: No edema Neuro: Awake, alert no focal deficits - Vital Signs Vital signs: Vital Signs - 12hr 06/22/17 06/22/17 06/22/17 00:00 00:15 00:30 Temperature 98.0 F Pulse Rate 81 84 72 Pulse Rate [ Anterior Bilateral Throughout] Pulse Rate [ 72 Left Dorsalis Pedis] Pulse Rate [ 72 Left Radial] Pulse Rate [ 72 Right Dorsalis Pedis] Pulse Rate [ 72 Right Radial] Respiratory 14 17 16 Rate Respiratory Rate [Anterior Bilateral Throughout] Blood Pressure 130/58 127/60 125/57 O2 Sat by Pulse 98 98 97 Oximetry 06/22/17 06/22/17 06/22/17 00:45 01:00 01:15 Temperature Pulse Rate 77 76 80 Pulse Rate [ Anterior Bilateral Throughout] Pulse Rate [ Left Dorsalis Pedis] Pulse Rate [ Left Radial] Pulse Rate [ Right Dorsalis Pedis] Pulse Rate [ Right Radial] Respiratory 19 16 16 Rate Respiratory Rate [Anterior Bilateral Throughout] Blood Pressure 130/61 128/58 132/59 O2 Sat by Pulse 97 96 98 Oximetry 06/22/17 06/22/17 06/22/17 01:30 01:45 02:00 Temperature Pulse Rate 71 82 82 Pulse Rate [ Anterior Bilateral Throughout] Pulse Rate [ Left Dorsalis Pedis] Pulse Rate [ Left Radial] Pulse Rate [ Right Dorsalis Pedis] Pulse Rate [ Right Radial] Respiratory 16 15 15 Rate Respiratory Rate [Anterior Bilateral Throughout] Blood Pressure 129/55 132/46 125/62 O2 Sat by Pulse 98 96 98 Oximetry 06/22/17 06/22/17 06/22/17 02:15 02:30 02:45 Temperature Pulse Rate 78 80 82 Pulse Rate [ Anterior Bilateral Throughout] Pulse Rate [ Left Dorsalis Pedis] Pulse Rate [ Left Radial] Pulse Rate [ Right Dorsalis Pedis] Pulse Rate [ Right Radial] Respiratory 11 L 13 13 Rate Respiratory Rate [Anterior Bilateral Throughout] Blood Pressure 132/60 133/61 130/59 O2 Sat by Pulse 98 99 98 Oximetry 06/22/17 06/22/17 06/22/17 03:00 03:15 03:24 Temperature Pulse Rate 77 78 80 Pulse Rate [ Anterior Bilateral Throughout] Pulse Rate [ Left Dorsalis Pedis] Pulse Rate [ Left Radial] Pulse Rate [ Right Dorsalis Pedis] Pulse Rate [ Right Radial] Respiratory 19 15 21 Rate Respiratory Rate [Anterior Bilateral Throughout] Blood Pressure 131/60 132/58 131/60 O2 Sat by Pulse 97 98 97 Oximetry 06/22/17 06/22/17 06/22/17 03:30 03:45 04:00 Temperature 98.5 F Pulse Rate 69 77 84 Pulse Rate [ Anterior Bilateral Throughout] Pulse Rate [ 76 Left Dorsalis Pedis] Pulse Rate [ Left Radial] Pulse Rate [ 76 Right Dorsalis Pedis] Pulse Rate [ 76 Right Radial] Respiratory 17 17 15 Rate Respiratory Rate [Anterior Bilateral Throughout] Blood Pressure 126/62 131/62 121/60 O2 Sat by Pulse 97 97 97 Oximetry 06/22/17 06/22/17 06/22/17 04:15 04:30 04:45 Temperature Pulse Rate 92 H 82 79 Pulse Rate [ Anterior Bilateral Throughout] Pulse Rate [ Left Dorsalis Pedis] Pulse Rate [ Left Radial] Pulse Rate [ Right Dorsalis Pedis] Pulse Rate [ Right Radial] Respiratory 18 14 15 Rate Respiratory Rate [Anterior Bilateral Throughout] Blood Pressure 132/63 121/51 121/51 O2 Sat by Pulse 98 99 99 Oximetry 06/22/17 06/22/17 06/22/17 05:00 05:15 05:30 Temperature Pulse Rate 83 82 79 Pulse Rate [ Anterior Bilateral Throughout] Pulse Rate [ Left Dorsalis Pedis] Pulse Rate [ Left Radial] Pulse Rate [ Right Dorsalis Pedis] Pulse Rate [ Right Radial] Respiratory 12 12 16 Rate Respiratory Rate [Anterior Bilateral Throughout] Blood Pressure 134/59 142/60 134/61 O2 Sat by Pulse 99 99 100 Oximetry 06/22/17 06/22/17 06/22/17 05:45 06:00 06:15 Temperature Pulse Rate 90 80 83 Pulse Rate [ Anterior Bilateral Throughout] Pulse Rate [ Left Dorsalis Pedis] Pulse Rate [ Left Radial] Pulse Rate [ Right Dorsalis Pedis] Pulse Rate [ Right Radial] Respiratory 16 11 L 20 Rate Respiratory Rate [Anterior Bilateral Throughout] Blood Pressure 134/61 129/56 129/56 O2 Sat by Pulse 99 99 100 Oximetry 06/22/17 06/22/17 06/22/17 06:31 06:45 07:01 Temperature Pulse Rate 88 82 83 Pulse Rate [ Anterior Bilateral Throughout] Pulse Rate [ Left Dorsalis Pedis] Pulse Rate [ Left Radial] Pulse Rate [ Right Dorsalis Pedis] Pulse Rate [ Right Radial] Respiratory 17 10 L 13 Rate Respiratory Rate [Anterior Bilateral Throughout] Blood Pressure 135/61 135/61 126/59 O2 Sat by Pulse 98 100 98 Oximetry 06/22/17 06/22/17 06/22/17 07:15 07:19 07:31 Temperature Pulse Rate 79 86 Pulse Rate [ Anterior Bilateral Throughout] Pulse Rate [ Left Dorsalis Pedis] Pulse Rate [ Left Radial] Pulse Rate [ Right Dorsalis Pedis] Pulse Rate [ Right Radial] Respiratory 15 16 Rate Respiratory Rate [Anterior Bilateral Throughout] Blood Pressure 126/59 116/51 O2 Sat by Pulse 100 98 100 Oximetry 06/22/17 06/22/17 06/22/17 07:37 07:42 07:45 Temperature Pulse Rate 87 Pulse Rate [ 82 85 Anterior Bilateral Throughout] Pulse Rate [ Left Dorsalis Pedis] Pulse Rate [ Left Radial] Pulse Rate [ Right Dorsalis Pedis] Pulse Rate [ Right Radial] Respiratory 17 Rate Respiratory 20 20 Rate [Anterior Bilateral Throughout] Blood Pressure 124/56 O2 Sat by Pulse 97 Oximetry 06/22/17 06/22/17 06/22/17 08:00 08:01 08:15 Temperature 99.1 F Pulse Rate 89 83 Pulse Rate [ Anterior Bilateral Throughout] Pulse Rate [ Left Dorsalis Pedis] Pulse Rate [ Left Radial] Pulse Rate [ Right Dorsalis Pedis] Pulse Rate [ Right Radial] Respiratory 21 13 Rate Respiratory Rate [Anterior Bilateral Throughout] Blood Pressure 120/61 120/54 O2 Sat by Pulse 92 99 98 Oximetry 06/22/17 06/22/17 06/22/17 08:31 08:45 09:01 Temperature Pulse Rate 84 88 88 Pulse Rate [ Anterior Bilateral Throughout] Pulse Rate [ Left Dorsalis Pedis] Pulse Rate [ Left Radial] Pulse Rate [ Right Dorsalis Pedis] Pulse Rate [ Right Radial] Respiratory 15 16 16 Rate Respiratory Rate [Anterior Bilateral Throughout] Blood Pressure 120/61 120/61 125/60 O2 Sat by Pulse 99 90 97 Oximetry 06/22/17 06/22/17 09:15 09:31 Temperature Pulse Rate 90 85 Pulse Rate [ Anterior Bilateral Throughout] Pulse Rate [ Left Dorsalis Pedis] Pulse Rate [ Left Radial] Pulse Rate [ Right Dorsalis Pedis] Pulse Rate [ Right Radial] Respiratory 13 18 Rate Respiratory Rate [Anterior Bilateral Throughout] Blood Pressure 125/60 124/56 O2 Sat by Pulse 96 98 Oximetry - Lab 06/22/17 06:20 06/22/17 06:20 Most recent lab results Calcium 8.2 mg/dL (8.4-10.2) L 06/22/17 06:20 Magnesium 1.70 mg/dL (1.7-2.3) 06/20/17 06:00
[2017-06-22] MEDS: PROAMATINE PO SCH (14:21)
[2017-06-23] MEDS: PROAMATINE PO SCH ×5 (00:40→21:47)
[2017-06-23] MEDS: LEVOPHED 8 MG in NACL 0.9% 250ML 242 ML IV SCH ×2 (00:44→09:25)
[2017-06-23] MEDS: MORPHINE IV PRN (05:47)
[2017-06-23] MEDS: ZOSYN/NS 2.25 GM/50ML 2.25 GM/50 ML BAG IV SCH ×3 (05:48→21:19)
[2017-06-23 07:29] LABS: Basophils % (Auto) 0.3 % (0.0-1.8); Hematocrit 28.2 % (30.3-42.9); Hemoglobin 9.3 gm/dl (10.1-14.3); Mean Corpuscular HGB Conc 33 % (30-34); Mean Corpuscular Hemoglobin 32 pg (28-32); Mean Corpuscular Volume 96 fl (79-97); Platelet Count 238 K/mm3 (140-440); Red Blood Count 2.93 M/mm3 (3.65-5.03); Red Cell Distribution Width 17.1 % (13.2-15.2); White Blood Count 9.2 K/mm3 (4.5-11.0)
[2017-06-23] MEDS: NOVOLOG SUB-Q SCH ×5 (07:45→22:25)
[2017-06-23 07:46] LABS: Calcium 8.2 mg/dL (8.4-10.2); Chloride 96.7 mmol/L (98-107); Potassium 4.3 mmol/L (3.6-5.0)
[2017-06-23] MEDS: LOVENOX SUB-Q SCH (10:00)
[2017-06-23] MEDS: PROTONIX PO SCH (10:04)
[2017-06-23] MEDS: DUONEB *Not for PRN Use IH SCH ×3 (10:05→20:06)
--- NOTE | 2017-06-23 13:29 | Progress Note ---
Assessment and Plan - Patient Problems (1) Hypoglycemia associated with diabetes Current Visit: Yes Status: Acute (2) Acute UTI Current Visit: Yes Status: Acute (3) Hyperglycemia Current Visit: Yes Status: Acute (4) Sepsis Current Visit: Yes Status: Acute Qualifiers: Sepsis type: sepsis due to unspecified organism Qualified Code(s): A41.9 - Sepsis, unspecified organism (5) UTI (urinary tract infection) Current Visit: Yes Status: Acute Qualifiers: Urinary tract infection type: acute cystitis Hematuria presence: without hematuria Qualified Code(s): N30.00 - Acute cystitis without hematuria (6) ARF (acute renal failure) Current Visit: No Status: Acute Qualifiers: Acute renal failure type: unspecified Qualified Code(s): N17.9 - Acute kidney failure, unspecified (7) Acute delirium Current Visit: No Status: Acute (8) Acute hypoxemic respiratory failure Current Visit: No Status: Acute (9) Septic shock Current Visit: No Status: Acute (10) Diabetes Current Visit: No Status: Chronic Subjective Principal diagnosis: sepsis, ESRD Interval history: cough Objective Vital Signs - 12hr 06/23/17 06/23/17 06/23/17 01:30 01:45 02:01 Temperature Pulse Rate 85 85 87 Pulse Rate [ Anterior Bilateral Throughout] Pulse Rate [ Left Dorsalis Pedis] Pulse Rate [ Left Radial] Pulse Rate [ Right Dorsalis Pedis] Pulse Rate [ Right Radial] Respiratory 17 12 16 Rate Respiratory Rate [Anterior Bilateral Throughout] Blood Pressure 111/50 105/61 103/65 O2 Sat by Pulse 97 96 97 Oximetry 06/23/17 06/23/17 06/23/17 02:15 02:30 02:45 Temperature Pulse Rate 80 83 83 Pulse Rate [ Anterior Bilateral Throughout] Pulse Rate [ Left Dorsalis Pedis] Pulse Rate [ Left Radial] Pulse Rate [ Right Dorsalis Pedis] Pulse Rate [ Right Radial] Respiratory 16 16 19 Rate Respiratory Rate [Anterior Bilateral Throughout] Blood Pressure 106/49 112/65 94/73 O2 Sat by Pulse 97 97 96 Oximetry 06/23/17 06/23/17 06/23/17 03:00 03:15 03:30 Temperature Pulse Rate 78 84 87 Pulse Rate [ Anterior Bilateral Throughout] Pulse Rate [ Left Dorsalis Pedis] Pulse Rate [ Left Radial] Pulse Rate [ Right Dorsalis Pedis] Pulse Rate [ Right Radial] Respiratory 18 18 18 Rate Respiratory Rate [Anterior Bilateral Throughout] Blood Pressure 109/58 102/67 106/64 O2 Sat by Pulse 99 99 96 Oximetry 06/23/17 06/23/17 06/23/17 03:45 03:56 04:00 Temperature 98.6 F Pulse Rate 86 80 Pulse Rate [ Anterior Bilateral Throughout] Pulse Rate [ 104 H Left Dorsalis Pedis] Pulse Rate [ 104 H Left Radial] Pulse Rate [ 104 H Right Dorsalis Pedis] Pulse Rate [ 104 H Right Radial] Respiratory 20 35 H 16 Rate Respiratory Rate [Anterior Bilateral Throughout] Blood Pressure 106/58 109/52 O2 Sat by Pulse 94 100 98 Oximetry 06/23/17 06/23/17 06/23/17 04:15 04:30 04:45 Temperature Pulse Rate 82 82 80 Pulse Rate [ Anterior Bilateral Throughout] Pulse Rate [ Left Dorsalis Pedis] Pulse Rate [ Left Radial] Pulse Rate [ Right Dorsalis Pedis] Pulse Rate [ Right Radial] Respiratory 16 14 15 Rate Respiratory Rate [Anterior Bilateral Throughout] Blood Pressure 105/51 104/49 104/49 O2 Sat by Pulse 99 98 96 Oximetry 06/23/17 06/23/17 06/23/17 05:00 05:15 05:30 Temperature Pulse Rate 77 76 80 Pulse Rate [ Anterior Bilateral Throughout] Pulse Rate [ Left Dorsalis Pedis] Pulse Rate [ Left Radial] Pulse Rate [ Right Dorsalis Pedis] Pulse Rate [ Right Radial] Respiratory 14 15 19 Rate Respiratory Rate [Anterior Bilateral Throughout] Blood Pressure 103/50 103/50 99/51 O2 Sat by Pulse 97 97 96 Oximetry 06/23/17 06/23/17 06/23/17 05:45 06:00 06:15 Temperature Pulse Rate 85 79 78 Pulse Rate [ Anterior Bilateral Throughout] Pulse Rate [ Left Dorsalis Pedis] Pulse Rate [ Left Radial] Pulse Rate [ Right Dorsalis Pedis] Pulse Rate [ Right Radial] Respiratory 21 13 16 Rate Respiratory Rate [Anterior Bilateral Throughout] Blood Pressure 102/49 108/54 107/53 O2 Sat by Pulse 97 97 92 Oximetry 06/23/17 06/23/17 06/23/17 06:30 06:45 07:00 Temperature Pulse Rate 78 79 95 H Pulse Rate [ Anterior Bilateral Throughout] Pulse Rate [ Left Dorsalis Pedis] Pulse Rate [ Left Radial] Pulse Rate [ Right Dorsalis Pedis] Pulse Rate [ Right Radial] Respiratory 16 13 18 Rate Respiratory Rate [Anterior Bilateral Throughout] Blood Pressure 103/49 98/55 105/54 O2 Sat by Pulse 98 96 95 Oximetry 06/23/17 06/23/17 06/23/17 07:15 07:30 07:45 Temperature Pulse Rate 81 83 76 Pulse Rate [ Anterior Bilateral Throughout] Pulse Rate [ Left Dorsalis Pedis] Pulse Rate [ Left Radial] Pulse Rate [ Right Dorsalis Pedis] Pulse Rate [ Right Radial] Respiratory 15 18 21 Rate Respiratory Rate [Anterior Bilateral Throughout] Blood Pressure 113/57 101/52 104/50 O2 Sat by Pulse 96 94 95 Oximetry 06/23/17 06/23/17 06/23/17 08:00 08:15 08:30 Temperature 97.6 F Pulse Rate 81 79 76 Pulse Rate [ Anterior Bilateral Throughout] Pulse Rate [ Left Dorsalis Pedis] Pulse Rate [ Left Radial] Pulse Rate [ Right Dorsalis Pedis] Pulse Rate [ Right Radial] Respiratory 16 15 12 Rate Respiratory Rate [Anterior Bilateral Throughout] Blood Pressure 104/53 101/56 97/53 O2 Sat by Pulse 94 94 98 Oximetry 06/23/17 06/23/17 06/23/17 08:45 09:00 09:15 Temperature Pulse Rate 76 78 85 Pulse Rate [ Anterior Bilateral Throughout] Pulse Rate [ Left Dorsalis Pedis] Pulse Rate [ Left Radial] Pulse Rate [ Right Dorsalis Pedis] Pulse Rate [ Right Radial] Respiratory 19 15 16 Rate Respiratory Rate [Anterior Bilateral Throughout] Blood Pressure 107/55 99/56 99/56 O2 Sat by Pulse 98 97 89 Oximetry 06/23/17 06/23/17 06/23/17 09:56 10:13 12:00 Temperature 97.7 F Pulse Rate Pulse Rate [ 85 91 H Anterior Bilateral Throughout] Pulse Rate [ Left Dorsalis Pedis] Pulse Rate [ Left Radial] Pulse Rate [ Right Dorsalis Pedis] Pulse Rate [ Right Radial] Respiratory Rate Respiratory 20 16 Rate [Anterior Bilateral Throughout] Blood Pressure O2 Sat by Pulse 98 Oximetry Constitutional: no acute distress, other (awake) Eyes: non-icteric ENT: oropharynx moist Neck: supple Effort: normal Ascultation: Bilateral: clear, wheezes (faint expiratory bilaterally) Cardiovascular: regular rate and rhythm (no mrg; rhythm appears to be NSR with PACs) Gastrointestinal: normoactive bowel sounds, soft, non-tender, non-distended Integumentary: normal Extremities: no cyanosis, no edema, pink and warm Neurologic: normal mental status (except confusiong), non-focal exam (moves all extremities), pupils equal and round, CN II-XII normal Psychiatric: mood appropriate, affect normal CBC and BMP: 06/23/17 07:20 06/23/17 07:20 ABG, PT/INR, D-dimer: ABG POC ABG pH 7.391 (7.35-7.45) 06/21/17 13:29 POC ABG pCO2 44.0 (35-45) 06/21/17 13:29 POC ABG pO2 50 (80-105) L 06/21/17 13:29 POC ABG HCO3 26.7 06/21/17 13:29 POC ABG Total CO2 28 06/21/17 13:29 POC ABG O2 Sat 84 06/21/17 13:29 PT/INR, D-dimer PT 16.9 Sec. (12.2-14.9) H 06/15/17 20:21 INR 1.31 (0.87-1.13) H 06/15/17 20:21 D-Dimer 985.05 ng/mlDDU (0-234) H 06/15/17 20:21 Abnormal lab findings: Abnormal Labs 06/15/17 06/15/17 06/15/17 17:52 19:00 19:00 WBC 3.7 L RBC 3.25 L Hgb Hct MCV RDW 15.8 H Lymph % (Auto) [place] % (Auto) 7.7 H Lymph # 0.9 L [place] # Seg Neutrophils % Seg Neutrophils # PT INR D-Dimer POC ABG pH POC ABG pCO2 POC ABG pO2 VBG pH Sodium Chloride 96.3 L Carbon Dioxide BUN 32 H Creatinine 3.5 H Glucose 428 H POC Glucose > 500 H Hemoglobin A1c Calcium Direct Bilirubin AST ALT Alkaline Phosphatase Total Creatine Kinase C-Reactive Protein NT-Pro-B Natriuret Pep Albumin Ur Specific [place] Urine WBC (Auto) U Epithel Cells (Auto) 06/15/17 06/15/17 06/15/17 19:00 19:35 20:00 WBC RBC Hgb Hct MCV RDW Lymph % (Auto) [place] % (Auto) Lymph # [place] # Seg Neutrophils % Seg Neutrophils # PT INR D-Dimer POC ABG pH POC ABG pCO2 POC ABG pO2 VBG pH 7.261 L Sodium Chloride Carbon Dioxide BUN Creatinine Glucose POC Glucose 371 H 384 H Hemoglobin A1c Calcium Direct Bilirubin AST ALT Alkaline Phosphatase Total Creatine Kinase C-Reactive Protein NT-Pro-B Natriuret Pep Albumin Ur Specific [place] Urine WBC (Auto) U Epithel Cells (Auto) 06/15/17 06/15/17 06/15/17 20:21 20:21 20:21 WBC RBC Hgb Hct MCV RDW Lymph % (Auto) [place] % (Auto) Lymph # [place] # Seg Neutrophils % Seg Neutrophils # PT 16.9 H INR 1.31 H D-Dimer 985.05 H POC ABG pH POC ABG pCO2 POC ABG pO2 VBG pH Sodium Chloride Carbon Dioxide BUN Creatinine Glucose POC Glucose Hemoglobin A1c Calcium Direct Bilirubin AST ALT Alkaline Phosphatase Total Creatine Kinase 147 H C-Reactive Protein NT-Pro-B Natriuret Pep 7290 H Albumin Ur Specific [place] Urine WBC (Auto) U Epithel Cells (Auto) 06/15/17 06/16/17 06/16/17 Unknown 10:13 13:23 WBC RBC Hgb Hct MCV RDW Lymph % (Auto) [place] % (Auto) Lymph # [place] # Seg Neutrophils % Seg Neutrophils # PT INR D-Dimer POC ABG pH POC ABG pCO2 POC ABG pO2 VBG pH Sodium Chloride Carbon Dioxide BUN Creatinine Glucose POC Glucose 290 H 301 H Hemoglobin A1c Calcium Direct Bilirubin AST ALT Alkaline Phosphatase Total Creatine Kinase C-Reactive Protein NT-Pro-B Natriuret Pep Albumin Ur Specific [place] Urine WBC (Auto) 72.0 H U Epithel Cells (Auto) 06/16/17 06/17/17 06/17/17 17:36 00:16 00:35 WBC RBC Hgb Hct MCV RDW Lymph % (Auto) [place] % (Auto) Lymph # [place] # Seg Neutrophils % Seg Neutrophils # PT INR D-Dimer POC ABG pH POC ABG pCO2 POC ABG pO2 VBG pH Sodium Chloride Carbon Dioxide BUN Creatinine Glucose POC Glucose 120 H < 40 L 188 H Hemoglobin A1c Calcium Direct Bilirubin AST ALT Alkaline Phosphatase Total Creatine Kinase C-Reactive Protein NT-Pro-B Natriuret Pep Albumin Ur Specific [place] Urine WBC (Auto) U Epithel Cells (Auto) 06/17/17 06/17/17 06/17/17 03:19 03:19 03:19 WBC RBC 3.31 L Hgb Hct MCV RDW 16.0 H Lymph % (Auto) [place] % (Auto) Lymph # 1.1 L [place] # Seg Neutrophils % 76.0 H Seg Neutrophils # PT INR D-Dimer POC ABG pH POC ABG pCO2 POC ABG pO2 VBG pH Sodium Chloride Carbon Dioxide BUN 45 H Creatinine 4.5 H Glucose 192 H POC Glucose Hemoglobin A1c 11.5 H Calcium 8.1 L Direct Bilirubin AST ALT Alkaline Phosphatase Total Creatine Kinase C-Reactive Protein NT-Pro-B Natriuret Pep Albumin Ur Specific [place] Urine WBC (Auto) U Epithel Cells (Auto) 06/17/17 06/17/17 06/17/17 03:51 06:44 11:15 WBC RBC Hgb Hct MCV RDW Lymph % (Auto) [place] % (Auto) Lymph # [place] # Seg Neutrophils % Seg Neutrophils # PT INR D-Dimer POC ABG pH POC ABG pCO2 POC ABG pO2 VBG pH Sodium Chloride Carbon Dioxide BUN Creatinine Glucose POC Glucose 184 H 326 H 380 H Hemoglobin A1c Calcium Direct Bilirubin AST ALT Alkaline Phosphatase Total Creatine Kinase C-Reactive Protein NT-Pro-B Natriuret Pep Albumin Ur Specific [place] Urine WBC (Auto) U Epithel Cells (Auto) 06/17/17 06/17/17 06/18/17 17:56 23:35 00:02 WBC RBC Hgb Hct MCV RDW Lymph % (Auto) [place] % (Auto) Lymph # [place] # Seg Neutrophils % Seg Neutrophils # PT INR D-Dimer POC ABG pH 7.314 L POC ABG pCO2 48.8 H POC ABG pO2 53 L VBG pH Sodium Chloride Carbon Dioxide BUN Creatinine Glucose POC Glucose 59 L < 40 L Hemoglobin A1c Calcium Direct Bilirubin AST ALT Alkaline Phosphatase Total Creatine Kinase C-Reactive Protein NT-Pro-B Natriuret Pep Albumin Ur Specific [place] Urine WBC (Auto) U Epithel Cells (Auto) 06/18/17 06/18/17 06/18/17 00:08 00:25 00:43 WBC RBC Hgb Hct MCV RDW Lymph % (Auto) [place] % (Auto) Lymph # [place] # Seg Neutrophils % Seg Neutrophils # PT INR D-Dimer POC ABG pH POC ABG pCO2 POC ABG pO2 VBG pH Sodium 136 L Chloride 95.8 L Carbon Dioxide BUN 21 H Creatinine 2.9 H Glucose 131 H POC Glucose 151 H Hemoglobin A1c Calcium 8.2 L Direct Bilirubin AST ALT Alkaline Phosphatase Total Creatine Kinase C-Reactive Protein NT-Pro-B Natriuret Pep Albumin Ur Specific [place] 1.041 H Urine WBC (Auto) 67.0 H U Epithel Cells (Auto) 24.0 H 06/18/17 06/18/17 06/18/17 02:11 05:00 05:00 WBC RBC 3.22 L Hgb Hct MCV RDW 16.2 H Lymph % (Auto) 10.3 L [place] % (Auto) Lymph # 0.7 L [place] # Seg Neutrophils % 81.3 H Seg Neutrophils # PT INR D-Dimer POC ABG pH POC ABG pCO2 POC ABG pO2 VBG pH Sodium Chloride Carbon Dioxide BUN 21 H Creatinine 3.2 H Glucose 159 H POC Glucose 183 H Hemoglobin A1c Calcium 7.9 L Direct Bilirubin 0.3 H AST 73 H ALT 112 H Alkaline Phosphatase 207 H Total Creatine Kinase C-Reactive Protein NT-Pro-B Natriuret Pep Albumin 3.4 L Ur Specific [place] Urine WBC (Auto) U Epithel Cells (Auto) 06/18/17 06/18/17 06/18/17 05:31 09:25 12:30 WBC RBC Hgb Hct MCV RDW Lymph % (Auto) [place] % (Auto) Lymph # [place] # Seg Neutrophils % Seg Neutrophils # PT INR D-Dimer POC ABG pH POC ABG pCO2 POC ABG pO2 72 L VBG pH Sodium Chloride Carbon Dioxide BUN Creatinine Glucose POC Glucose 181 H 286 H Hemoglobin A1c Calcium Direct Bilirubin AST ALT Alkaline Phosphatase Total Creatine Kinase C-Reactive Protein NT-Pro-B Natriuret Pep Albumin Ur Specific [place] Urine WBC (Auto) U Epithel Cells (Auto) 06/18/17 06/18/17 06/18/17 13:57 21:30 22:45 WBC RBC Hgb Hct MCV RDW Lymph % (Auto) [place] % (Auto) Lymph # [place] # Seg Neutrophils % Seg Neutrophils # PT INR D-Dimer POC ABG pH POC ABG pCO2 POC ABG pO2 VBG pH Sodium Chloride Carbon Dioxide BUN Creatinine Glucose POC Glucose 67 L 206 H Hemoglobin A1c Calcium Direct Bilirubin AST ALT Alkaline Phosphatase Total Creatine Kinase C-Reactive Protein 2.50 H NT-Pro-B Natriuret Pep Albumin Ur Specific [place] Urine WBC (Auto) U Epithel Cells (Auto) 06/19/17 06/19/17 06/19/17 00:56 04:50 04:50 WBC RBC 3.02 L Hgb 9.7 L Hct 29.4 L MCV RDW 16.9 H Lymph % (Auto) 5.9 L [place] % (Auto) Lymph # 0.5 L [place] # Seg Neutrophils % 87.3 H Seg Neutrophils # PT INR D-Dimer POC ABG pH POC ABG pCO2 POC ABG pO2 VBG pH Sodium 136 L Chloride 96.2 L Carbon Dioxide BUN 27 H Creatinine 4.3 H Glucose 111 H POC Glucose 150 H Hemoglobin A1c Calcium 8.0 L Direct Bilirubin AST 51 H ALT 95 H Alkaline Phosphatase 236 H Total Creatine Kinase C-Reactive Protein NT-Pro-B Natriuret Pep Albumin 3.3 L Ur Specific [place] Urine WBC (Auto) U Epithel Cells (Auto) 06/19/17 06/19/17 06/19/17 07:47 12:36 15:18 WBC RBC Hgb Hct MCV RDW Lymph % (Auto) [place] % (Auto) Lymph # [place] # Seg Neutrophils % Seg Neutrophils # PT INR D-Dimer POC ABG pH 7.256 L POC ABG pCO2 48.3 H POC ABG pO2 62 L VBG pH Sodium Chloride Carbon Dioxide BUN Creatinine Glucose POC Glucose 108 H 181 H Hemoglobin A1c Calcium Direct Bilirubin AST ALT Alkaline Phosphatase Total Creatine Kinase C-Reactive Protein NT-Pro-B Natriuret Pep Albumin Ur Specific [place] Urine WBC (Auto) U Epithel Cells (Auto) 06/19/17 06/19/17 06/19/17 18:22 18:23 21:40 WBC RBC Hgb Hct MCV RDW Lymph % (Auto) [place] % (Auto) Lymph # [place] # Seg Neutrophils % Seg Neutrophils # PT INR D-Dimer POC ABG pH 7.247 L POC ABG pCO2 50.5 H POC ABG pO2 108 H VBG pH Sodium Chloride Carbon Dioxide BUN Creatinine Glucose POC Glucose 177 H 217 H Hemoglobin A1c Calcium Direct Bilirubin AST ALT Alkaline Phosphatase Total Creatine Kinase C-Reactive Protein NT-Pro-B Natriuret Pep Albumin Ur Specific [place] Urine WBC (Auto) U Epithel Cells (Auto) 06/20/17 06/20/17 06/20/17 00:15 06:00 06:00 WBC 11.7 H RBC 2.78 L Hgb 8.7 L Hct 26.8 L MCV RDW 17.1 H Lymph % (Auto) 5.6 L [place] % (Auto) 7.9 H Lymph # 0.7 L [place] # 0.9 H Seg Neutrophils % 86.1 H Seg Neutrophils # 10.0 H PT INR D-Dimer POC ABG pH POC ABG pCO2 POC ABG pO2 VBG pH Sodium Chloride Carbon Dioxide BUN Creatinine 3.0 H Glucose 167 H POC Glucose 243 H Hemoglobin A1c Calcium 7.7 L Direct Bilirubin AST ALT Alkaline Phosphatase Total Creatine Kinase C-Reactive Protein NT-Pro-B Natriuret Pep Albumin Ur Specific [place] Urine WBC (Auto) U Epithel Cells (Auto) 06/20/17 06/20/17 06/20/17 09:01 10:53 11:10 WBC RBC Hgb Hct MCV RDW Lymph % (Auto) [place] % (Auto) Lymph # [place] # Seg Neutrophils % Seg Neutrophils # PT INR D-Dimer POC ABG pH POC ABG pCO2 POC ABG pO2 57 L VBG pH Sodium Chloride Carbon Dioxide BUN Creatinine Glucose POC Glucose 199 H 205 H Hemoglobin A1c Calcium Direct Bilirubin AST ALT Alkaline Phosphatase Total Creatine Kinase C-Reactive Protein NT-Pro-B Natriuret Pep Albumin Ur Specific [place] Urine WBC (Auto) U Epithel Cells (Auto) 06/20/17 06/20/17 06/20/17 16:16 21:34 22:02 WBC RBC Hgb Hct MCV RDW Lymph % (Auto) [place] % (Auto) Lymph # [place] # Seg Neutrophils % Seg Neutrophils # PT INR D-Dimer POC ABG pH POC ABG pCO2 POC ABG pO2 VBG pH Sodium Chloride Carbon Dioxide BUN Creatinine Glucose POC Glucose 233 H 150 H 158 H Hemoglobin A1c Calcium Direct Bilirubin AST ALT Alkaline Phosphatase Total Creatine Kinase C-Reactive Protein NT-Pro-B Natriuret Pep Albumin Ur Specific [place] Urine WBC (Auto) U Epithel Cells (Auto) 06/21/17 06/21/17 06/21/17 04:30 04:30 07:35 WBC RBC 2.63 L Hgb 8.4 L Hct 25.6 L MCV RDW 17.4 H Lymph % (Auto) 8.6 L [place] % (Auto) Lymph # 0.8 L [place] # Seg Neutrophils % 84.0 H Seg Neutrophils # 8.0 H PT INR D-Dimer POC ABG pH POC ABG pCO2 POC ABG pO2 VBG pH Sodium 136 L Chloride 96.0 L Carbon Dioxide BUN 28 H Creatinine 4.1 H Glucose 160 H POC Glucose 217 H Hemoglobin A1c Calcium 7.9 L Direct Bilirubin AST ALT Alkaline Phosphatase Total Creatine Kinase C-Reactive Protein NT-Pro-B Natriuret Pep Albumin Ur Specific [place] Urine WBC (Auto) U Epithel Cells (Auto) 06/21/17 06/21/17 06/21/17 11:33 13:29 16:47 WBC RBC Hgb Hct MCV RDW Lymph % (Auto) [place] % (Auto) Lymph # [place] # Seg Neutrophils % Seg Neutrophils # PT INR D-Dimer POC ABG pH POC ABG pCO2 POC ABG pO2 50 L VBG pH Sodium Chloride Carbon Dioxide BUN Creatinine Glucose POC Glucose 170 H 216 H Hemoglobin A1c Calcium Direct Bilirubin AST ALT Alkaline Phosphatase Total Creatine Kinase C-Reactive Protein NT-Pro-B Natriuret Pep Albumin Ur Specific [place] Urine WBC (Auto) U Epithel Cells (Auto) 06/21/17 06/22/17 06/22/17 21:06 06:20 06:20 WBC RBC 3.00 L Hgb 9.5 L Hct 29.3 L MCV 98 H RDW 17.5 H Lymph % (Auto) 11.0 L [place] % (Auto) Lymph # 0.8 L [place] # Seg Neutrophils % 86.8 H Seg Neutrophils # PT INR D-Dimer POC ABG pH POC ABG pCO2 POC ABG pO2 VBG pH Sodium Chloride 95.6 L Carbon Dioxide 21 L BUN 19 H Creatinine 2.9 H Glucose 187 H POC Glucose 141 H Hemoglobin A1c Calcium 8.2 L Direct Bilirubin AST ALT Alkaline Phosphatase Total Creatine Kinase C-Reactive Protein NT-Pro-B Natriuret Pep Albumin Ur Specific [place] Urine WBC (Auto) U Epithel Cells (Auto) 06/22/17 06/22/17 06/22/17 06:31 07:53 12:01 WBC RBC Hgb Hct MCV RDW Lymph % (Auto) [place] % (Auto) Lymph # [place] # Seg Neutrophils % Seg Neutrophils # PT INR D-Dimer POC ABG pH POC ABG pCO2 POC ABG pO2 VBG pH Sodium Chloride Carbon Dioxide BUN Creatinine Glucose POC Glucose 197 H 203 H 297 H Hemoglobin A1c Calcium Direct Bilirubin AST ALT Alkaline Phosphatase Total Creatine Kinase C-Reactive Protein NT-Pro-B Natriuret Pep Albumin Ur Specific [place] Urine WBC (Auto) U Epithel Cells (Auto) 06/22/17 06/22/17 06/23/17 16:32 21:29 07:20 WBC RBC 2.93 L Hgb 9.3 L Hct 28.2 L MCV RDW 17.1 H Lymph % (Auto) 7.4 L [place] % (Auto) 8.9 H Lymph # 0.7 L [place] # Seg Neutrophils % 83.4 H Seg Neutrophils # PT INR D-Dimer POC ABG pH POC ABG pCO2 POC ABG pO2 VBG pH Sodium Chloride Carbon Dioxide BUN Creatinine Glucose POC Glucose 370 H 400 H Hemoglobin A1c Calcium Direct Bilirubin AST ALT Alkaline Phosphatase Total Creatine Kinase C-Reactive Protein NT-Pro-B Natriuret Pep Albumin Ur Specific [place] Urine WBC (Auto) U Epithel Cells (Auto) 06/23/17 06/23/17 06/23/17 07:20 07:45 12:22 WBC RBC Hgb Hct MCV RDW Lymph % (Auto) [place] % (Auto) Lymph # [place] # Seg Neutrophils % Seg Neutrophils # PT INR D-Dimer POC ABG pH POC ABG pCO2 POC ABG pO2 VBG pH Sodium Chloride 96.7 L Carbon Dioxide BUN 41 H Creatinine 4.3 H Glucose 281 H POC Glucose 293 H 416 H Hemoglobin A1c Calcium 8.2 L Direct Bilirubin AST ALT Alkaline Phosphatase Total Creatine Kinase C-Reactive Protein NT-Pro-B Natriuret Pep Albumin Ur Specific [place] Urine WBC (Auto) U Epithel Cells (Auto)
--- NOTE | 2017-06-23 15:17 | Progress Note ---
Assessment and Plan Assessment and plan: The high probability of a clinically significant sudden or life-threatening deterioration of patient require muffling direct attention. My intervention and personal management secondary to life-threatening illness. My critical care time was 34 minutes. This included time spent performing data review and interpretation patient assessment and monitoring documentation counseling and medical orders. Total Time Spent with Patient (Minutes): 35 - Patient Problems (1) Acute UTI Current Visit: Yes Status: Acute Plan to address problem: Ratio remain on antibiotics Zosyn will follow up culture sepsis secondary to UTI present on admission. (2) Altered mental status Current Visit: Yes Status: Acute Qualifiers: Altered mental status type: transient alteration of awareness Qualified Code(s): R40.4 - Transient alteration of awareness Plan to address problem: Mental status may be something other than sepsis. Patient confused requiring 4. restraints. Temperature removal restraints unable to secondary to confusion and inability to hurt himself by pulling off oxygen. (3) Sepsis Current Visit: Yes Status: Acute Qualifiers: Sepsis type: sepsis due to unspecified organism Qualified Code(s): A41.9 - Sepsis, unspecified organism Plan to address problem: T UTI follow culture data and continue present antibiotic coverage. Zosyn. No growth in culture data so far or urine. (4) UTI (urinary tract infection) Current Visit: Yes Status: Acute Qualifiers: Urinary tract infection type: acute cystitis Hematuria presence: without hematuria Qualified Code(s): N30.00 - Acute cystitis without hematuria (5) Acute hypoxemic respiratory failure Current Visit: No Status: Acute Plan to address problem: Secondary to COPD. Patient placed on nebulizers pulmonology following. (6) ESRD (end stage renal disease) Current Visit: No Status: Acute Plan to address problem: T hemodialysis. (7) Diabetes Current Visit: No Status: Chronic Plan to address problem: Uncontrolled diabetes. We'll add long-acting insulin Lantus 10 units daily at bedtime. (8) Hyperlipidemia Current Visit: No Status: Chronic History Interval history: At present patient in bed only with fair drip. Somewhat confused 4-point restraint. Attempt to remove restraint patient attempted to take oxygen off. Hospitalist Physical - Constitutional Vitals: Temp Pulse Resp BP Pulse Ox 97.7 F 90 16 99/56 98 06/23/17 12:00 06/23/17 15:00 06/23/17 15:00 06/23/17 09:15 06/23/17 09:56 General appearance: Present: no acute distress, well-nourished, other (lethergic ) - EENT Eyes: Present: PERRL, EOM intact ENT: hearing intact - Respiratory Respiratory effort: normal Respiratory: bilateral: diminished - Cardiovascular Rhythm: regular Heart Sounds: Present: S1 & S2 - Extremities Extremities: no ischemia, normal temperature, normal color Extremity abnormal: edema Peripheral Pulses: within normal limits - Abdominal General gastrointestinal: soft, non-tender, non-distended, other (obese) - Psychiatric Psychiatric: other (poor judgment poor cognition.) - Neurologic Neurologic: CNII-XII intact Results - Labs CBC & Chem 7: 06/23/17 07:20 06/23/17 07:20 Labs: Laboratory Last Values WBC 9.2 K/mm3 (4.5-11.0) 06/23/17 07:20 RBC 2.93 M/mm3 (3.65-5.03) L 06/23/17 07:20 Hgb 9.3 gm/dl (10.1-14.3) L 06/23/17 07:20 Hct 28.2 % (30.3-42.9) L 06/23/17 07:20 MCV 96 fl (79-97) 06/23/17 07:20 MCH 32 pg (28-32) 06/23/17 07:20 MCHC 33 % (30-34) 06/23/17 07:20 RDW 17.1 % (13.2-15.2) H 06/23/17 07:20 Plt Count 238 K/mm3 (140-440) 06/23/17 07:20 Lymph % (Auto) 7.4 % (13.4-35.0) L 06/23/17 07:20 Orange % (Auto) 8.9 % (0.0-7.3) H 06/23/17 07:20 Eos % (Auto) 0.0 % (0.0-4.3) 06/23/17 07:20 Baso % (Auto) 0.3 % (0.0-1.8) 06/23/17 07:20 Lymph # 0.7 K/mm3 (1.2-5.4) L 06/23/17 07:20 Orange # 0.8 K/mm3 (0.0-0.8) 06/23/17 07:20 Eos # 0.0 K/mm3 (0.0-0.4) 06/23/17 07:20 Baso # 0.0 K/mm3 (0.0-0.1) 06/23/17 07:20 Seg Neutrophils % 83.4 % (40.0-70.0) H 06/23/17 07:20 Seg Neutrophils # 7.7 K/mm3 (1.8-7.7) 06/23/17 07:20 PT 16.9 Sec. (12.2-14.9) H 06/15/17 20:21 INR 1.31 (0.87-1.13) H 06/15/17 20:21 APTT 35.3 Sec. (24.2-36.6) 06/15/17 20:21 D-Dimer 985.05 ng/mlDDU (0-234) H 06/15/17 20:21 POC ABG pH 7.391 (7.35-7.45) 06/21/17 13:29 POC ABG pCO2 44.0 (35-45) 06/21/17 13:29 POC ABG pO2 50 (80-105) L 06/21/17 13:29 POC ABG HCO3 26.7 06/21/17 13:29 POC ABG Total CO2 28 06/21/17 13:29 POC ABG O2 Sat 84 06/21/17 13:29 POC ABG Base Excess 2 06/21/17 13:29 VBG pH 7.261 (7.320-7.420) L 06/15/17 19:00 FiO2 40 % 06/21/17 13:29 Sodium 138 mmol/L (137-145) 06/23/17 07:20 Potassium 4.3 mmol/L (3.6-5.0) 06/23/17 07:20 Chloride 96.7 mmol/L (98-107) L 06/23/17 07:20 Carbon Dioxide 24 mmol/L (22-30) 06/23/17 07:20 Anion Gap 22 mmol/L 06/23/17 07:20 BUN 41 mg/dL (7-17) H 06/23/17 07:20 Creatinine 4.3 mg/dL (0.7-1.2) H 06/23/17 07:20 Estimated GFR 12 ml/min 06/23/17 07:20 BUN/Creatinine Ratio 10 % 06/23/17 07:20 Glucose 281 mg/dL (65-100) H 06/23/17 07:20 POC Glucose 416 (70-105) H 06/23/17 12:22 Hemoglobin A1c 11.5 % (4-6) H 06/17/17 03:19 Lactic Acid 1.50 mmol/L (0.7-2.0) 06/17/17 15:12 Calcium 8.2 mg/dL (8.4-10.2) L 06/23/17 07:20 Magnesium 1.70 mg/dL (1.7-2.3) 06/20/17 06:00 Total Bilirubin 1.00 mg/dL (0.1-1.2) 06/19/17 04:50 Direct Bilirubin 0.3 mg/dL (0-0.2) H 06/18/17 05:00 Indirect Bilirubin 0.3 mg/dL 06/18/17 05:00 AST 51 units/L (5-40) H 06/19/17 04:50 ALT 95 units/L (7-56) H 06/19/17 04:50 Alkaline Phosphatase 236 units/L (35-129) H 06/19/17 04:50 Total Creatine Kinase 124 units/L (30-135) 06/16/17 10:25 CK-MB (CK-2) 1.9 ng/mL (0.0-4.0) 06/16/17 10:25 CK-MB (CK-2) Rel Index 1.5 (0-4) 06/16/17 10:25 Troponin T < 0.010 ng/mL (0.00-0.029) 06/16/17 10:25 C-Reactive Protein 2.50 mg/dL (0.00-1.30) H 06/18/17 13:57 NT-Pro-B Natriuret Pep 7290 pg/mL (0-900) H 06/15/17 20:21 Total Protein 6.3 g/dL (6.3-8.2) 06/19/17 04:50 Albumin 3.3 g/dL (3.9-5) L 06/19/17 04:50 Albumin/Globulin Ratio 1.1 % 06/19/17 04:50 TSH 0.415 mlU/mL (0.270-4.200) 06/17/17 15:12 Urine Color [place] (Yellow) 06/18/17 00:25 Urine Turbidity Slightly cloudy (Clear) 06/18/17 00:25 Urine pH 5.0 (5.0-7.0) 06/18/17 00:25 Ur Specific [place] 1.041 (1.003-1.030) H 06/18/17 00:25 Urine Protein 100 mg/dl mg/dL (Negative) 06/18/17 00:25 Urine Glucose (UA) 50 mg/dL (Negative) 06/18/17 00:25 Urine Ketones Neg mg/dL (Negative) 06/18/17 00:25 Urine Blood Sm (Negative) 06/18/17 00:25 Urine Nitrite Neg (Negative) 06/18/17 00:25 Urine Bilirubin Neg (Negative) 06/18/17 00:25 Urine Ictotest Negative (Negative) 06/15/17 Unknown Urine Urobilinogen < 2.0 mg/dL (<2.0) 06/18/17 00:25 Ur Leukocyte Esterase Mod (Negative) 06/18/17 00:25 Urine WBC (Auto) 67.0 /HPF (0.0-6.0) H 06/18/17 00:25 Urine RBC (Auto) 25.0 /HPF (0.0-6.0) 06/18/17 00:25 U Epithel Cells (Auto) 24.0 /HPF (0-13.0) H 06/18/17 00:25 Urine Bacteria (Auto) 1+ /HPF (Negative) 06/18/17 00:25 Urine WBC Clumps 2+ /HPF 06/18/17 00:25 Amorphous Crystals 2+ 06/18/17 00:25 Hyaline Casts 3 /LPF 06/18/17 00:25 Urine Mucus Few /HPF 06/18/17 00:25 Rheumatoid Factor < 10 IU/ml (0-13) 06/18/17 14:51 HIV 1&2 Antibody Rapid Non react (Non React) 06/18/17 14:51 HIV P24 Antigen Non react (Non React) 06/18/17 14:51 - Imaging and Cardiology Chest x-ray: image reviewed CT scan - chest: image reviewed CT Scan - head: image reviewed
--- NOTE | 2017-06-23 16:16 | XRay Report ---
FINAL REPORT EXAM: XR CHEST 1V AP HISTORY: cough TECHNIQUE: AP semi erect portable chest x-ray Comparison: 06/19 FINDINGS: Cardiomegaly. Right-sided dialysis catheter present with tips unchanged. No pneumothorax. Persistent pulmonary vascular congestion. Blunting of left costophrenic sulcus with silhouetting of the hemidiaphragm compatible with layering effusion and basal consolidation. No pneumothorax. IMPRESSION: Dialysis catheter unchanged. No pneumothorax. Persist pulmonary vascular congestion/interstitial edema and layering left pleural effusion. Right pleural effusion may also be present. Persistent basal consolidation.
--- NOTE | 2017-06-23 16:38 | Progress Note ---
Assessment and Plan - Patient Problems (1) Altered mental status Current Visit: Yes Status: Acute Qualifiers: Altered mental status type: transient alteration of awareness Qualified Code(s): R40.4 - Transient alteration of awareness Plan to address problem: Continue Neuro monitoring. Being managed by primary attending/heel nail rasper (2) ESRD (end stage renal disease) Current Visit: No Status: Acute Plan to address problem: Continue dialysis on a Saturday, Saturday and Saturday schedule. (3) History of nephrectomy, unilateral Current Visit: No Status: Acute (4) Hypotension Current Visit: Yes Status: Acute Plan to address problem: Wean Levophed to map of more than 60 mmHg. Continue midodrine. (5) HTN (hypertension) Current Visit: No Status: Chronic Plan to address problem: Blood pressure is now low. Patient is off of hypertensive medications. Follow- up Subjective Date of service: 06/23/17 Principal diagnosis: sepsis, ESRD Interval history: Patient seen lying in bed. She is still a bit confused. is at the bedside. Low-dose Levophed infusion. Nurse reports blood pressure has been very labile Objective - Exam Narrative Exam: Elderly -[place] female lying in bed in no acute distress HEENT: NCAT, pink oral mucous membrane Neck: Supple, no venous distention CVS: S1S2 RRR with no murmur, rub or gallop Chest: Clear to auscultation Abdomen: Protuberant, soft, nontender, no organomegaly, bowel sounds are present Extremities: No edema Neuro: Awake, alert no focal deficits - Vital Signs Vital signs: Vital Signs - 12hr 06/23/17 06/23/17 06/23/17 04:45 05:00 05:15 Temperature Pulse Rate 80 77 76 Pulse Rate [ Anterior Bilateral Throughout] Respiratory 15 14 15 Rate Respiratory Rate [Anterior Bilateral Throughout] Blood Pressure 104/49 103/50 103/50 O2 Sat by Pulse 96 97 97 Oximetry 06/23/17 06/23/17 06/23/17 05:30 05:45 06:00 Temperature Pulse Rate 80 85 79 Pulse Rate [ Anterior Bilateral Throughout] Respiratory 19 21 13 Rate Respiratory Rate [Anterior Bilateral Throughout] Blood Pressure 99/51 102/49 108/54 O2 Sat by Pulse 96 97 97 Oximetry 06/23/17 06/23/17 06/23/17 06:15 06:30 06:45 Temperature Pulse Rate 78 78 79 Pulse Rate [ Anterior Bilateral Throughout] Respiratory 16 16 13 Rate Respiratory Rate [Anterior Bilateral Throughout] Blood Pressure 107/53 103/49 98/55 O2 Sat by Pulse 92 98 96 Oximetry 06/23/17 06/23/17 06/23/17 07:00 07:15 07:30 Temperature Pulse Rate 95 H 81 83 Pulse Rate [ Anterior Bilateral Throughout] Respiratory 18 15 18 Rate Respiratory Rate [Anterior Bilateral Throughout] Blood Pressure 105/54 113/57 101/52 O2 Sat by Pulse 95 96 94 Oximetry 06/23/17 06/23/17 06/23/17 07:45 08:00 08:15 Temperature 97.6 F Pulse Rate 76 81 79 Pulse Rate [ Anterior Bilateral Throughout] Respiratory 21 16 15 Rate Respiratory Rate [Anterior Bilateral Throughout] Blood Pressure 104/50 104/53 101/56 O2 Sat by Pulse 95 94 94 Oximetry 06/23/17 06/23/17 06/23/17 08:30 08:45 09:00 Temperature Pulse Rate 76 76 78 Pulse Rate [ Anterior Bilateral Throughout] Respiratory 12 19 15 Rate Respiratory Rate [Anterior Bilateral Throughout] Blood Pressure 97/53 107/55 99/56 O2 Sat by Pulse 98 98 97 Oximetry 06/23/17 06/23/17 06/23/17 09:15 09:31 09:45 Temperature Pulse Rate 85 89 87 Pulse Rate [ Anterior Bilateral Throughout] Respiratory 16 17 18 Rate Respiratory Rate [Anterior Bilateral Throughout] Blood Pressure 99/56 85/47 84/46 O2 Sat by Pulse 89 83 L 86 Oximetry 06/23/17 06/23/17 06/23/17 09:56 10:00 10:13 Temperature Pulse Rate 87 Pulse Rate [ 85 91 H Anterior Bilateral Throughout] Respiratory 18 Rate Respiratory 20 16 Rate [Anterior Bilateral Throughout] Blood Pressure 116/67 O2 Sat by Pulse 98 96 Oximetry 06/23/17 06/23/17 06/23/17 10:15 10:30 10:45 Temperature Pulse Rate 89 91 H 77 Pulse Rate [ Anterior Bilateral Throughout] Respiratory 18 16 12 Rate Respiratory Rate [Anterior Bilateral Throughout] Blood Pressure 116/67 113/63 123/59 O2 Sat by Pulse 99 96 98 Oximetry 06/23/17 06/23/17 06/23/17 11:00 11:15 11:30 Temperature Pulse Rate 81 79 79 Pulse Rate [ Anterior Bilateral Throughout] Respiratory 15 22 16 Rate Respiratory Rate [Anterior Bilateral Throughout] Blood Pressure 132/86 126/72 131/69 O2 Sat by Pulse 100 98 97 Oximetry 06/23/17 06/23/17 06/23/17 11:45 12:00 12:15 Temperature 97.7 F Pulse Rate 74 79 91 H Pulse Rate [ Anterior Bilateral Throughout] Respiratory 15 17 17 Rate Respiratory Rate [Anterior Bilateral Throughout] Blood Pressure 131/65 127/72 131/65 O2 Sat by Pulse 97 99 96 Oximetry 06/23/17 06/23/17 06/23/17 12:31 12:45 13:01 Temperature Pulse Rate 95 H 97 H 97 H Pulse Rate [ Anterior Bilateral Throughout] Respiratory 18 19 15 Rate Respiratory Rate [Anterior Bilateral Throughout] Blood Pressure 183/155 127/72 127/72 O2 Sat by Pulse 97 97 96 Oximetry 06/23/17 06/23/17 06/23/17 13:15 13:30 13:45 Temperature Pulse Rate 95 H 92 H 89 Pulse Rate [ Anterior Bilateral Throughout] Respiratory 9 L 15 19 Rate Respiratory Rate [Anterior Bilateral Throughout] Blood Pressure 151/54 112/65 106/60 O2 Sat by Pulse 96 97 98 Oximetry 06/23/17 06/23/17 06/23/17 14:00 14:15 14:31 Temperature Pulse Rate 95 H 97 H 83 Pulse Rate [ Anterior Bilateral Throughout] Respiratory 17 23 16 Rate Respiratory Rate [Anterior Bilateral Throughout] Blood Pressure 106/60 127/70 O2 Sat by Pulse 98 96 98 Oximetry 06/23/17 06/23/17 06/23/17 14:45 15:00 15:15 Temperature Pulse Rate 94 H 87 83 Pulse Rate [ 90 Anterior Bilateral Throughout] Respiratory 15 17 22 Rate Respiratory 16 Rate [Anterior Bilateral Throughout] Blood Pressure 127/70 101/56 101/56 O2 Sat by Pulse 97 98 99 Oximetry 06/23/17 06/23/17 06/23/17 15:20 15:30 15:45 Temperature Pulse Rate 95 H 88 Pulse Rate [ 86 Anterior Bilateral Throughout] Respiratory 14 19 Rate Respiratory 20 Rate [Anterior Bilateral Throughout] Blood Pressure 103/46 111/60 O2 Sat by Pulse 98 98 Oximetry 06/23/17 06/23/17 16:00 16:15 Temperature 97.6 F Pulse Rate 95 H 90 Pulse Rate [ Anterior Bilateral Throughout] Respiratory 16 18 Rate Respiratory Rate [Anterior Bilateral Throughout] Blood Pressure 112/81 125/67 O2 Sat by Pulse 97 98 Oximetry - Lab 06/23/17 07:20 06/23/17 07:20 Most recent lab results Calcium 8.2 mg/dL (8.4-10.2) L 06/23/17 07:20 Magnesium 1.70 mg/dL (1.7-2.3) 06/20/17 06:00
[2017-06-23] MEDS: NEURONTIN PO SCH (21:46)
[2017-06-23] MEDS ORDERED: LEVEMIR SUB-Q SCH (22:00)
[2017-06-24] MEDS: PROAMATINE PO SCH ×4 (01:33→21:20)
[2017-06-24] MEDS: ZOSYN/NS 2.25 GM/50ML 2.25 GM/50 ML BAG IV SCH (05:50)
[2017-06-24 06:02] LABS: Hematocrit 31.2 % (30.3-42.9); Hemoglobin 9.9 gm/dl (10.1-14.3); Mean Corpuscular HGB Conc 32 % (30-34); Mean Corpuscular Hemoglobin 30 pg (28-32); Mean Corpuscular Volume 96 fl (79-97); Platelet Count 271 K/mm3 (140-440); Red Blood Count 3.26 M/mm3 (3.65-5.03); White Blood Count 11.9 K/mm3 (4.5-11.0)
[2017-06-24 06:29] LABS: Calcium 8.4 mg/dL (8.4-10.2); Chloride 97.4 mmol/L (98-107); Potassium 4.2 mmol/L (3.6-5.0)
[2017-06-24] MEDS: LEVOPHED 8 MG in NACL 0.9% 250ML 242 ML IV SCH (06:44)
[2017-06-24 06:50] LABS: Anisocytosis 1+; Basophils % (Manual) 0 % (0.0-1.8); Blastocytes % (Manual) 0 %; Diff Status Complete; Eosinophils % (Manual) 0 % (0.0-4.3); Macrocytosis Few; Platelet Estimate Consistent w Auto; Polychromasia Few
[2017-06-24] MEDS: NOVOLOG SUB-Q SCH ×4 (08:00→22:29)
[2017-06-24] MEDS: DUONEB *Not for PRN Use IH SCH ×3 (08:33→20:22)
--- NOTE | 2017-06-24 10:30 | Progress Note ---
Assessment and Plan 76 y/o female with known renal failure, now admitted to ICU with shock, etiology unknown, RV failure of unknown etiology and acute respiratory failure with pulmonary hypertension 1. Will attempt a dose of hydrocortisone to see if this will help to remedy shock 2. Will encourage patient to eat 3. Bipap PRN 4. HD per renal 5. Wean pressors for MAPs >65 6. Overall prognosis is guarded CCT 31 minutes. Subjective Date of service: 06/24/17 Principal diagnosis: sepsis, ESRD Interval history: Currently on HD, no family at bedside. Did not wear bipap last night. Objective Vital Signs - 12hr 06/23/17 06/23/17 06/23/17 22:30 22:45 23:00 Temperature Pulse Rate 87 87 81 Pulse Rate [ Anterior Bilateral Throughout] Respiratory 14 15 15 Rate Respiratory Rate [Anterior Bilateral Throughout] Blood Pressure 85/55 93/50 93/50 O2 Sat by Pulse 95 98 99 Oximetry O2 Sat by Pulse Oximetry [ Anterior Bilateral Throughout] 06/23/17 06/23/17 06/23/17 23:15 23:30 23:45 Temperature Pulse Rate 78 78 77 Pulse Rate [ Anterior Bilateral Throughout] Respiratory 15 17 15 Rate Respiratory Rate [Anterior Bilateral Throughout] Blood Pressure 93/51 91/47 89/48 O2 Sat by Pulse 100 100 100 Oximetry O2 Sat by Pulse Oximetry [ Anterior Bilateral Throughout] 06/24/17 06/24/17 06/24/17 00:00 00:15 00:30 Temperature 98.1 F Pulse Rate 82 77 76 Pulse Rate [ Anterior Bilateral Throughout] Respiratory 24 15 29 H Rate Respiratory Rate [Anterior Bilateral Throughout] Blood Pressure 81/46 84/45 93/58 O2 Sat by Pulse 100 100 100 Oximetry O2 Sat by Pulse Oximetry [ Anterior Bilateral Throughout] 06/24/17 06/24/17 06/24/17 00:45 01:00 01:15 Temperature Pulse Rate 79 77 75 Pulse Rate [ Anterior Bilateral Throughout] Respiratory 20 14 13 Rate Respiratory Rate [Anterior Bilateral Throughout] Blood Pressure 88/48 88/53 96/54 O2 Sat by Pulse 100 100 100 Oximetry O2 Sat by Pulse Oximetry [ Anterior Bilateral Throughout] 06/24/17 06/24/17 06/24/17 01:31 01:45 02:00 Temperature Pulse Rate 82 79 77 Pulse Rate [ Anterior Bilateral Throughout] Respiratory 18 27 H 14 Rate Respiratory Rate [Anterior Bilateral Throughout] Blood Pressure 88/58 95/49 96/53 O2 Sat by Pulse 100 100 100 Oximetry O2 Sat by Pulse Oximetry [ Anterior Bilateral Throughout] 06/24/17 06/24/17 06/24/17 02:15 02:30 02:45 Temperature Pulse Rate 79 77 78 Pulse Rate [ Anterior Bilateral Throughout] Respiratory 16 15 19 Rate Respiratory Rate [Anterior Bilateral Throughout] Blood Pressure 99/52 96/47 96/47 O2 Sat by Pulse 100 99 98 Oximetry O2 Sat by Pulse Oximetry [ Anterior Bilateral Throughout] 06/24/17 06/24/17 06/24/17 03:00 03:15 03:30 Temperature Pulse Rate 78 78 77 Pulse Rate [ Anterior Bilateral Throughout] Respiratory 27 H 17 28 H Rate Respiratory Rate [Anterior Bilateral Throughout] Blood Pressure 97/55 104/53 105/43 O2 Sat by Pulse 98 99 99 Oximetry O2 Sat by Pulse Oximetry [ Anterior Bilateral Throughout] 06/24/17 06/24/17 06/24/17 03:45 04:00 04:15 Temperature 98.6 F Pulse Rate 86 80 79 Pulse Rate [ Anterior Bilateral Throughout] Respiratory 18 13 29 H Rate Respiratory Rate [Anterior Bilateral Throughout] Blood Pressure 105/54 111/49 99/57 O2 Sat by Pulse 99 100 99 Oximetry O2 Sat by Pulse Oximetry [ Anterior Bilateral Throughout] 06/24/17 06/24/17 06/24/17 04:30 04:45 05:00 Temperature Pulse Rate 88 90 87 Pulse Rate [ Anterior Bilateral Throughout] Respiratory 15 16 15 Rate Respiratory Rate [Anterior Bilateral Throughout] Blood Pressure 112/56 112/56 105/52 O2 Sat by Pulse 98 98 98 Oximetry O2 Sat by Pulse Oximetry [ Anterior Bilateral Throughout] 06/24/17 06/24/17 06/24/17 05:15 05:30 05:45 Temperature Pulse Rate 82 79 79 Pulse Rate [ Anterior Bilateral Throughout] Respiratory 18 26 H 19 Rate Respiratory Rate [Anterior Bilateral Throughout] Blood Pressure 99/56 112/46 104/51 O2 Sat by Pulse 99 100 100 Oximetry O2 Sat by Pulse Oximetry [ Anterior Bilateral Throughout] 06/24/17 06/24/17 06/24/17 06:00 06:15 06:30 Temperature Pulse Rate 79 86 79 Pulse Rate [ Anterior Bilateral Throughout] Respiratory 28 H 18 29 H Rate Respiratory Rate [Anterior Bilateral Throughout] Blood Pressure 103/50 95/52 101/54 O2 Sat by Pulse 99 98 98 Oximetry O2 Sat by Pulse Oximetry [ Anterior Bilateral Throughout] 06/24/17 06/24/17 06/24/17 06:45 07:00 08:00 Temperature 98.4 F Pulse Rate 79 79 73 Pulse Rate [ Anterior Bilateral Throughout] Respiratory 16 16 18 Rate Respiratory Rate [Anterior Bilateral Throughout] Blood Pressure 102/54 100/44 114/38 O2 Sat by Pulse 98 98 Oximetry O2 Sat by Pulse 99 Oximetry [ Anterior Bilateral Throughout] 06/24/17 06/24/17 06/24/17 08:15 08:30 08:43 Temperature Pulse Rate 76 74 Pulse Rate [ 85 88 Anterior Bilateral Throughout] Respiratory Rate Respiratory 21 18 Rate [Anterior Bilateral Throughout] Blood Pressure 105/81 159/72 O2 Sat by Pulse 100 Oximetry O2 Sat by Pulse Oximetry [ Anterior Bilateral Throughout] 06/24/17 06/24/17 06/24/17 08:45 09:00 09:15 Temperature Pulse Rate 89 78 81 Pulse Rate [ Anterior Bilateral Throughout] Respiratory Rate Respiratory Rate [Anterior Bilateral Throughout] Blood Pressure 152/80 153/82 131/63 O2 Sat by Pulse Oximetry O2 Sat by Pulse Oximetry [ Anterior Bilateral Throughout] 06/24/17 06/24/17 09:30 09:45 Temperature Pulse Rate 80 75 Pulse Rate [ Anterior Bilateral Throughout] Respiratory Rate Respiratory Rate [Anterior Bilateral Throughout] Blood Pressure 140/71 129/62 O2 Sat by Pulse Oximetry O2 Sat by Pulse Oximetry [ Anterior Bilateral Throughout] Constitutional: no acute distress, other (awake) Eyes: non-icteric ENT: oropharynx moist Neck: supple Effort: normal Ascultation: Bilateral: clear, wheezes (faint expiratory bilaterally) Cardiovascular: regular rate and rhythm (no mrg; rhythm appears to be NSR with PACs) Gastrointestinal: normoactive bowel sounds, soft, non-tender, non-distended Integumentary: normal Extremities: no cyanosis, no edema, pink and warm Neurologic: normal mental status (except confusiong), non-focal exam (moves all extremities), pupils equal and round, CN II-XII normal Psychiatric: mood appropriate, affect normal CBC and BMP: 06/24/17 05:40 06/24/17 05:40 ABG, PT/INR, D-dimer: ABG POC ABG pH 7.391 (7.35-7.45) 06/21/17 13:29 POC ABG pCO2 44.0 (35-45) 06/21/17 13:29 POC ABG pO2 50 (80-105) L 06/21/17 13:29 POC ABG HCO3 26.7 06/21/17 13:29 POC ABG Total CO2 28 06/21/17 13:29 POC ABG O2 Sat 84 06/21/17 13:29 PT/INR, D-dimer PT 16.9 Sec. (12.2-14.9) H 06/15/17 20:21 INR 1.31 (0.87-1.13) H 06/15/17 20:21 D-Dimer 985.05 ng/mlDDU (0-234) H 06/15/17 20:21 Abnormal lab findings: Abnormal Labs 06/15/17 06/15/17 06/15/17 17:52 19:00 19:00 WBC 3.7 L RBC 3.25 L Hgb Hct MCV RDW 15.8 H Lymph % (Auto) [place] % (Auto) 7.7 H Lymph # 0.9 L [place] # Seg Neutrophils % Seg Neuts % (Manual) Lymphocytes % (Manual) Seg Neutrophils # Seg Neutrophils # Man Lymphocytes # (Manual) PT INR D-Dimer POC ABG pH POC ABG pCO2 POC ABG pO2 VBG pH Sodium Chloride 96.3 L Carbon Dioxide BUN 32 H Creatinine 3.5 H Glucose 428 H POC Glucose > 500 H Hemoglobin A1c Calcium Direct Bilirubin AST ALT Alkaline Phosphatase Total Creatine Kinase C-Reactive Protein NT-Pro-B Natriuret Pep Albumin Ur Specific [place] Urine WBC (Auto) U Epithel Cells (Auto) 06/15/17 06/15/17 06/15/17 19:00 19:35 20:00 WBC RBC Hgb Hct MCV RDW Lymph % (Auto) [place] % (Auto) Lymph # [place] # Seg Neutrophils % Seg Neuts % (Manual) Lymphocytes % (Manual) Seg Neutrophils # Seg Neutrophils # Man Lymphocytes # (Manual) PT INR D-Dimer POC ABG pH POC ABG pCO2 POC ABG pO2 VBG pH 7.261 L Sodium Chloride Carbon Dioxide BUN Creatinine Glucose POC Glucose 371 H 384 H Hemoglobin A1c Calcium Direct Bilirubin AST ALT Alkaline Phosphatase Total Creatine Kinase C-Reactive Protein NT-Pro-B Natriuret Pep Albumin Ur Specific [place] Urine WBC (Auto) U Epithel Cells (Auto) 06/15/17 06/15/17 06/15/17 20:21 20:21 20:21 WBC RBC Hgb Hct MCV RDW Lymph % (Auto) [place] % (Auto) Lymph # [place] # Seg Neutrophils % Seg Neuts % (Manual) Lymphocytes % (Manual) Seg Neutrophils # Seg Neutrophils # Man Lymphocytes # (Manual) PT 16.9 H INR 1.31 H D-Dimer 985.05 H POC ABG pH POC ABG pCO2 POC ABG pO2 VBG pH Sodium Chloride Carbon Dioxide BUN Creatinine Glucose POC Glucose Hemoglobin A1c Calcium Direct Bilirubin AST ALT Alkaline Phosphatase Total Creatine Kinase 147 H C-Reactive Protein NT-Pro-B Natriuret Pep 7290 H Albumin Ur Specific [place] Urine WBC (Auto) U Epithel Cells (Auto) 06/15/17 06/16/17 06/16/17 Unknown 10:13 13:23 WBC RBC Hgb Hct MCV RDW Lymph % (Auto) [place] % (Auto) Lymph # [place] # Seg Neutrophils % Seg Neuts % (Manual) Lymphocytes % (Manual) Seg Neutrophils # Seg Neutrophils # Man Lymphocytes # (Manual) PT INR D-Dimer POC ABG pH POC ABG pCO2 POC ABG pO2 VBG pH Sodium Chloride Carbon Dioxide BUN Creatinine Glucose POC Glucose 290 H 301 H Hemoglobin A1c Calcium Direct Bilirubin AST ALT Alkaline Phosphatase Total Creatine Kinase C-Reactive Protein NT-Pro-B Natriuret Pep Albumin Ur Specific [place] Urine WBC (Auto) 72.0 H U Epithel Cells (Auto) 06/16/17 06/17/17 06/17/17 17:36 00:16 00:35 WBC RBC Hgb Hct MCV RDW Lymph % (Auto) [place] % (Auto) Lymph # [place] # Seg Neutrophils % Seg Neuts % (Manual) Lymphocytes % (Manual) Seg Neutrophils # Seg Neutrophils # Man Lymphocytes # (Manual) PT INR D-Dimer POC ABG pH POC ABG pCO2 POC ABG pO2 VBG pH Sodium Chloride Carbon Dioxide BUN Creatinine Glucose POC Glucose 120 H < 40 L 188 H Hemoglobin A1c Calcium Direct Bilirubin AST ALT Alkaline Phosphatase Total Creatine Kinase C-Reactive Protein NT-Pro-B Natriuret Pep Albumin Ur Specific [place] Urine WBC (Auto) U Epithel Cells (Auto) 06/17/17 06/17/17 06/17/17 03:19 03:19 03:19 WBC RBC 3.31 L Hgb Hct MCV RDW 16.0 H Lymph % (Auto) [place] % (Auto) Lymph # 1.1 L [place] # Seg Neutrophils % 76.0 H Seg Neuts % (Manual) Lymphocytes % (Manual) Seg Neutrophils # Seg Neutrophils # Man Lymphocytes # (Manual) PT INR D-Dimer POC ABG pH POC ABG pCO2 POC ABG pO2 VBG pH Sodium Chloride Carbon Dioxide BUN 45 H Creatinine 4.5 H Glucose 192 H POC Glucose Hemoglobin A1c 11.5 H Calcium 8.1 L Direct Bilirubin AST ALT Alkaline Phosphatase Total Creatine Kinase C-Reactive Protein NT-Pro-B Natriuret Pep Albumin Ur Specific [place] Urine WBC (Auto) U Epithel Cells (Auto) 06/17/17 06/17/17 06/17/17 03:51 06:44 11:15 WBC RBC Hgb Hct MCV RDW Lymph % (Auto) [place] % (Auto) Lymph # [place] # Seg Neutrophils % Seg Neuts % (Manual) Lymphocytes % (Manual) Seg Neutrophils # Seg Neutrophils # Man Lymphocytes # (Manual) PT INR D-Dimer POC ABG pH POC ABG pCO2 POC ABG pO2 VBG pH Sodium Chloride Carbon Dioxide BUN Creatinine Glucose POC Glucose 184 H 326 H 380 H Hemoglobin A1c Calcium Direct Bilirubin AST ALT Alkaline Phosphatase Total Creatine Kinase C-Reactive Protein NT-Pro-B Natriuret Pep Albumin Ur Specific [place] Urine WBC (Auto) U Epithel Cells (Auto) 06/17/17 06/17/17 06/18/17 17:56 23:35 00:02 WBC RBC Hgb Hct MCV RDW Lymph % (Auto) [place] % (Auto) Lymph # [place] # Seg Neutrophils % Seg Neuts % (Manual) Lymphocytes % (Manual) Seg Neutrophils # Seg Neutrophils # Man Lymphocytes # (Manual) PT INR D-Dimer POC ABG pH 7.314 L POC ABG pCO2 48.8 H POC ABG pO2 53 L VBG pH Sodium Chloride Carbon Dioxide BUN Creatinine Glucose POC Glucose 59 L < 40 L Hemoglobin A1c Calcium Direct Bilirubin AST ALT Alkaline Phosphatase Total Creatine Kinase C-Reactive Protein NT-Pro-B Natriuret Pep Albumin Ur Specific [place] Urine WBC (Auto) U Epithel Cells (Auto) 06/18/17 06/18/17 06/18/17 00:08 00:25 00:43 WBC RBC Hgb Hct MCV RDW Lymph % (Auto) [place] % (Auto) Lymph # [place] # Seg Neutrophils % Seg Neuts % (Manual) Lymphocytes % (Manual) Seg Neutrophils # Seg Neutrophils # Man Lymphocytes # (Manual) PT INR D-Dimer POC ABG pH POC ABG pCO2 POC ABG pO2 VBG pH Sodium 136 L Chloride 95.8 L Carbon Dioxide BUN 21 H Creatinine 2.9 H Glucose 131 H POC Glucose 151 H Hemoglobin A1c Calcium 8.2 L Direct Bilirubin AST ALT Alkaline Phosphatase Total Creatine Kinase C-Reactive Protein NT-Pro-B Natriuret Pep Albumin Ur Specific [place] 1.041 H Urine WBC (Auto) 67.0 H U Epithel Cells (Auto) 24.0 H 06/18/17 06/18/17 06/18/17 02:11 05:00 05:00 WBC RBC 3.22 L Hgb Hct MCV RDW 16.2 H Lymph % (Auto) 10.3 L [place] % (Auto) Lymph # 0.7 L [place] # Seg Neutrophils % 81.3 H Seg Neuts % (Manual) Lymphocytes % (Manual) Seg Neutrophils # Seg Neutrophils # Man Lymphocytes # (Manual) PT INR D-Dimer POC ABG pH POC ABG pCO2 POC ABG pO2 VBG pH Sodium Chloride Carbon Dioxide BUN 21 H Creatinine 3.2 H Glucose 159 H POC Glucose 183 H Hemoglobin A1c Calcium 7.9 L Direct Bilirubin 0.3 H AST 73 H ALT 112 H Alkaline Phosphatase 207 H Total Creatine Kinase C-Reactive Protein NT-Pro-B Natriuret Pep Albumin 3.4 L Ur Specific [place] Urine WBC (Auto) U Epithel Cells (Auto) 06/18/17 06/18/17 06/18/17 05:31 09:25 12:30 WBC RBC Hgb Hct MCV RDW Lymph % (Auto) [place] % (Auto) Lymph # [place] # Seg Neutrophils % Seg Neuts % (Manual) Lymphocytes % (Manual) Seg Neutrophils # Seg Neutrophils # Man Lymphocytes # (Manual) PT INR D-Dimer POC ABG pH POC ABG pCO2 POC ABG pO2 72 L VBG pH Sodium Chloride Carbon Dioxide BUN Creatinine Glucose POC Glucose 181 H 286 H Hemoglobin A1c Calcium Direct Bilirubin AST ALT Alkaline Phosphatase Total Creatine Kinase C-Reactive Protein NT-Pro-B Natriuret Pep Albumin Ur Specific [place] Urine WBC (Auto) U Epithel Cells (Auto) 06/18/17 06/18/17 06/18/17 13:57 21:30 22:45 WBC RBC Hgb Hct MCV RDW Lymph % (Auto) [place] % (Auto) Lymph # [place] # Seg Neutrophils % Seg Neuts % (Manual) Lymphocytes % (Manual) Seg Neutrophils # Seg Neutrophils # Man Lymphocytes # (Manual) PT INR D-Dimer POC ABG pH POC ABG pCO2 POC ABG pO2 VBG pH Sodium Chloride Carbon Dioxide BUN Creatinine Glucose POC Glucose 67 L 206 H Hemoglobin A1c Calcium Direct Bilirubin AST ALT Alkaline Phosphatase Total Creatine Kinase C-Reactive Protein 2.50 H NT-Pro-B Natriuret Pep Albumin Ur Specific [place] Urine WBC (Auto) U Epithel Cells (Auto) 06/19/17 06/19/17 06/19/17 00:56 04:50 04:50 WBC RBC 3.02 L Hgb 9.7 L Hct 29.4 L MCV RDW 16.9 H Lymph % (Auto) 5.9 L [place] % (Auto) Lymph # 0.5 L [place] # Seg Neutrophils % 87.3 H Seg Neuts % (Manual) Lymphocytes % (Manual) Seg Neutrophils # Seg Neutrophils # Man Lymphocytes # (Manual) PT INR D-Dimer POC ABG pH POC ABG pCO2 POC ABG pO2 VBG pH Sodium 136 L Chloride 96.2 L Carbon Dioxide BUN 27 H Creatinine 4.3 H Glucose 111 H POC Glucose 150 H Hemoglobin A1c Calcium 8.0 L Direct Bilirubin AST 51 H ALT 95 H Alkaline Phosphatase 236 H Total Creatine Kinase C-Reactive Protein NT-Pro-B Natriuret Pep Albumin 3.3 L Ur Specific [place] Urine WBC (Auto) U Epithel Cells (Auto) 06/19/17 06/19/17 06/19/17 07:47 12:36 15:18 WBC RBC Hgb Hct MCV RDW Lymph % (Auto) [place] % (Auto) Lymph # [place] # Seg Neutrophils % Seg Neuts % (Manual) Lymphocytes % (Manual) Seg Neutrophils # Seg Neutrophils # Man Lymphocytes # (Manual) PT INR D-Dimer POC ABG pH 7.256 L POC ABG pCO2 48.3 H POC ABG pO2 62 L VBG pH Sodium Chloride Carbon Dioxide BUN Creatinine Glucose POC Glucose 108 H 181 H Hemoglobin A1c Calcium Direct Bilirubin AST ALT Alkaline Phosphatase Total Creatine Kinase C-Reactive Protein NT-Pro-B Natriuret Pep Albumin Ur Specific [place] Urine WBC (Auto) U Epithel Cells (Auto) 06/19/17 06/19/17 06/19/17 18:22 18:23 21:40 WBC RBC Hgb Hct MCV RDW Lymph % (Auto) [place] % (Auto) Lymph # [place] # Seg Neutrophils % Seg Neuts % (Manual) Lymphocytes % (Manual) Seg Neutrophils # Seg Neutrophils # Man Lymphocytes # (Manual) PT INR D-Dimer POC ABG pH 7.247 L POC ABG pCO2 50.5 H POC ABG pO2 108 H VBG pH Sodium Chloride Carbon Dioxide BUN Creatinine Glucose POC Glucose 177 H 217 H Hemoglobin A1c Calcium Direct Bilirubin AST ALT Alkaline Phosphatase Total Creatine Kinase C-Reactive Protein NT-Pro-B Natriuret Pep Albumin Ur Specific [place] Urine WBC (Auto) U Epithel Cells (Auto) 06/20/17 06/20/17 06/20/17 00:15 06:00 06:00 WBC 11.7 H RBC 2.78 L Hgb 8.7 L Hct 26.8 L MCV RDW 17.1 H Lymph % (Auto) 5.6 L [place] % (Auto) 7.9 H Lymph # 0.7 L [place] # 0.9 H Seg Neutrophils % 86.1 H Seg Neuts % (Manual) Lymphocytes % (Manual) Seg Neutrophils # 10.0 H Seg Neutrophils # Man Lymphocytes # (Manual) PT INR D-Dimer POC ABG pH POC ABG pCO2 POC ABG pO2 VBG pH Sodium Chloride Carbon Dioxide BUN Creatinine 3.0 H Glucose 167 H POC Glucose 243 H Hemoglobin A1c Calcium 7.7 L Direct Bilirubin AST ALT Alkaline Phosphatase Total Creatine Kinase C-Reactive Protein NT-Pro-B Natriuret Pep Albumin Ur Specific [place] Urine WBC (Auto) U Epithel Cells (Auto) 06/20/17 06/20/17 06/20/17 09:01 10:53 11:10 WBC RBC Hgb Hct MCV RDW Lymph % (Auto) [place] % (Auto) Lymph # [place] # Seg Neutrophils % Seg Neuts % (Manual) Lymphocytes % (Manual) Seg Neutrophils # Seg Neutrophils # Man Lymphocytes # (Manual) PT INR D-Dimer POC ABG pH POC ABG pCO2 POC ABG pO2 57 L VBG pH Sodium Chloride Carbon Dioxide BUN Creatinine Glucose POC Glucose 199 H 205 H Hemoglobin A1c Calcium Direct Bilirubin AST ALT Alkaline Phosphatase Total Creatine Kinase C-Reactive Protein NT-Pro-B Natriuret Pep Albumin Ur Specific [place] Urine WBC (Auto) U Epithel Cells (Auto) 06/20/17 06/20/17 06/20/17 16:16 21:34 22:02 WBC RBC Hgb Hct MCV RDW Lymph % (Auto) [place] % (Auto) Lymph # [place] # Seg Neutrophils % Seg Neuts % (Manual) Lymphocytes % (Manual) Seg Neutrophils # Seg Neutrophils # Man Lymphocytes # (Manual) PT INR D-Dimer POC ABG pH POC ABG pCO2 POC ABG pO2 VBG pH Sodium Chloride Carbon Dioxide BUN Creatinine Glucose POC Glucose 233 H 150 H 158 H Hemoglobin A1c Calcium Direct Bilirubin AST ALT Alkaline Phosphatase Total Creatine Kinase C-Reactive Protein NT-Pro-B Natriuret Pep Albumin Ur Specific [place] Urine WBC (Auto) U Epithel Cells (Auto) 06/21/17 06/21/17 06/21/17 04:30 04:30 07:35 WBC RBC 2.63 L Hgb 8.4 L Hct 25.6 L MCV RDW 17.4 H Lymph % (Auto) 8.6 L [place] % (Auto) Lymph # 0.8 L [place] # Seg Neutrophils % 84.0 H Seg Neuts % (Manual) Lymphocytes % (Manual) Seg Neutrophils # 8.0 H Seg Neutrophils # Man Lymphocytes # (Manual) PT INR D-Dimer POC ABG pH POC ABG pCO2 POC ABG pO2 VBG pH Sodium 136 L Chloride 96.0 L Carbon Dioxide BUN 28 H Creatinine 4.1 H Glucose 160 H POC Glucose 217 H Hemoglobin A1c Calcium 7.9 L Direct Bilirubin AST ALT Alkaline Phosphatase Total Creatine Kinase C-Reactive Protein NT-Pro-B Natriuret Pep Albumin Ur Specific [place] Urine WBC (Auto) U Epithel Cells (Auto) 06/21/17 06/21/17 06/21/17 11:33 13:29 16:47 WBC RBC Hgb Hct MCV RDW Lymph % (Auto) [place] % (Auto) Lymph # [place] # Seg Neutrophils % Seg Neuts % (Manual) Lymphocytes % (Manual) Seg Neutrophils # Seg Neutrophils # Man Lymphocytes # (Manual) PT INR D-Dimer POC ABG pH POC ABG pCO2 POC ABG pO2 50 L VBG pH Sodium Chloride Carbon Dioxide BUN Creatinine Glucose POC Glucose 170 H 216 H Hemoglobin A1c Calcium Direct Bilirubin AST ALT Alkaline Phosphatase Total Creatine Kinase C-Reactive Protein NT-Pro-B Natriuret Pep Albumin Ur Specific [place] Urine WBC (Auto) U Epithel Cells (Auto) 06/21/17 06/22/17 06/22/17 21:06 06:20 06:20 WBC RBC 3.00 L Hgb 9.5 L Hct 29.3 L MCV 98 H RDW 17.5 H Lymph % (Auto) 11.0 L [place] % (Auto) Lymph # 0.8 L [place] # Seg Neutrophils % 86.8 H Seg Neuts % (Manual) Lymphocytes % (Manual) Seg Neutrophils # Seg Neutrophils # Man Lymphocytes # (Manual) PT INR D-Dimer POC ABG pH POC ABG pCO2 POC ABG pO2 VBG pH Sodium Chloride 95.6 L Carbon Dioxide 21 L BUN 19 H Creatinine 2.9 H Glucose 187 H POC Glucose 141 H Hemoglobin A1c Calcium 8.2 L Direct Bilirubin AST ALT Alkaline Phosphatase Total Creatine Kinase C-Reactive Protein NT-Pro-B Natriuret Pep Albumin Ur Specific [place] Urine WBC (Auto) U Epithel Cells (Auto) 06/22/17 06/22/17 06/22/17 06:31 07:53 12:01 WBC RBC Hgb Hct MCV RDW Lymph % (Auto) [place] % (Auto) Lymph # [place] # Seg Neutrophils % Seg Neuts % (Manual) Lymphocytes % (Manual) Seg Neutrophils # Seg Neutrophils # Man Lymphocytes # (Manual) PT INR D-Dimer POC ABG pH POC ABG pCO2 POC ABG pO2 VBG pH Sodium Chloride Carbon Dioxide BUN Creatinine Glucose POC Glucose 197 H 203 H 297 H Hemoglobin A1c Calcium Direct Bilirubin AST ALT Alkaline Phosphatase Total Creatine Kinase C-Reactive Protein NT-Pro-B Natriuret Pep Albumin Ur Specific [place] Urine WBC (Auto) U Epithel Cells (Auto) 06/22/17 06/22/17 06/23/17 16:32 21:29 07:20 WBC RBC 2.93 L Hgb 9.3 L Hct 28.2 L MCV RDW 17.1 H Lymph % (Auto) 7.4 L [place] % (Auto) 8.9 H Lymph # 0.7 L [place] # Seg Neutrophils % 83.4 H Seg Neuts % (Manual) Lymphocytes % (Manual) Seg Neutrophils # Seg Neutrophils # Man Lymphocytes # (Manual) PT INR D-Dimer POC ABG pH POC ABG pCO2 POC ABG pO2 VBG pH Sodium Chloride Carbon Dioxide BUN Creatinine Glucose POC Glucose 370 H 400 H Hemoglobin A1c Calcium Direct Bilirubin AST ALT Alkaline Phosphatase Total Creatine Kinase C-Reactive Protein NT-Pro-B Natriuret Pep Albumin Ur Specific [place] Urine WBC (Auto) U Epithel Cells (Auto) 06/23/17 06/23/17 06/23/17 07:20 07:45 12:22 WBC RBC Hgb Hct MCV RDW Lymph % (Auto) [place] % (Auto) Lymph # [place] # Seg Neutrophils % Seg Neuts % (Manual) Lymphocytes % (Manual) Seg Neutrophils # Seg Neutrophils # Man Lymphocytes # (Manual) PT INR D-Dimer POC ABG pH POC ABG pCO2 POC ABG pO2 VBG pH Sodium Chloride 96.7 L Carbon Dioxide BUN 41 H Creatinine 4.3 H Glucose 281 H POC Glucose 293 H 416 H Hemoglobin A1c Calcium 8.2 L Direct Bilirubin AST ALT Alkaline Phosphatase Total Creatine Kinase C-Reactive Protein NT-Pro-B Natriuret Pep Albumin Ur Specific [place] Urine WBC (Auto) U Epithel Cells (Auto) 06/23/17 06/24/17 06/24/17 21:56 05:40 05:40 WBC 11.9 H RBC 3.26 L Hgb 9.9 L Hct MCV RDW 17.0 H Lymph % (Auto) [place] % (Auto) Lymph # [place] # Seg Neutrophils % Seg Neuts % (Manual) 92.0 H Lymphocytes % (Manual) 5.0 L Seg Neutrophils # Seg Neutrophils # Man 10.9 H Lymphocytes # (Manual) 0.6 L PT INR D-Dimer POC ABG pH POC ABG pCO2 POC ABG pO2 VBG pH Sodium Chloride 97.4 L Carbon Dioxide BUN 54 H Creatinine 4.9 H Glucose 175 H POC Glucose 310 H Hemoglobin A1c Calcium Direct Bilirubin AST ALT Alkaline Phosphatase Total Creatine Kinase C-Reactive Protein NT-Pro-B Natriuret Pep Albumin Ur Specific [place] Urine WBC (Auto) U Epithel Cells (Auto)
[2017-06-24] MEDS: HEPARIN IV PRN (11:32)
[2017-06-24] MEDS: LEVEMIR SUB-Q SCH (12:29)
[2017-06-24] MEDS: PROTONIX PO SCH (12:29)
[2017-06-24] MEDS: LOVENOX SUB-Q SCH (12:29)
--- NOTE | 2017-06-24 14:54 | Progress Note ---
Assessment and Plan Assessment and plan: The high probability of a clinically significant, sudden or life threatening deterioration of the [pulmonary and endocrine and cardiovascular] system(s) required my full and direct attention, intervention and personal management. The aggregate critical care time was [34] minutes. This time is in addition to time spent performing reported procedures but includes the following: [x] Data Review and interpretation [x] Patient assessment and monitoring of vital signs x[]x Documentation [x] Medication orders and management - Patient Problems (1) Acute UTI Current Visit: Yes Status: Acute Plan to address problem: Ratio remain on antibiotics Zosyn will follow up culture sepsis secondary to UTI present on admission. (2) Altered mental status Current Visit: Yes Status: Acute Qualifiers: Altered mental status type: transient alteration of awareness Qualified Code(s): R40.4 - Transient alteration of awareness Plan to address problem: Much improved. Much better than yesterday. Even family states patient much more alert. Was secondary to sepsis and dehydration and most likely hypoxemia (3) Sepsis Current Visit: Yes Status: Acute Qualifiers: Sepsis type: sepsis due to unspecified organism Qualified Code(s): A41.9 - Sepsis, unspecified organism Plan to address problem: T UTI follow culture data and continue present antibiotic coverage. Zosyn. No growth in culture data so far or urine. (4) UTI (urinary tract infection) Current Visit: Yes Status: Acute Qualifiers: Urinary tract infection type: acute cystitis Hematuria presence: without hematuria Qualified Code(s): N30.00 - Acute cystitis without hematuria Plan to address problem: Current antibiotic coverage stable. Abscess improving. (5) Acute hypoxemic respiratory failure Current Visit: No Status: Acute Plan to address problem: Secondary to COPD. Patient placed on nebulizers pulmonology following. (6) ESRD (end stage renal disease) Current Visit: No Status: Acute Plan to address problem: T hemodialysis. (7) Diabetes Current Visit: No Status: Chronic Plan to address problem: Diabetes uncontrolled. We'll increase Lantus to 15 units daily at bedtime. (8) Hyperlipidemia Current Visit: No Status: Chronic History Interval history: Patient this a.m. is actively getting dialysis. Dialysis Saturday and Saturday. Hospital course complicated by uncontrolled blood sugars [phone]. An altered mental status. Alert than yesterday. Hospitalist Physical - Constitutional Vitals: Temp Pulse Resp BP Pulse Ox 98.4 F 87 13 148/61 99 06/24/17 12:00 06/24/17 12:15 06/24/17 12:15 06/24/17 12:15 06/24/17 12:15 General appearance: Present: no acute distress, well-nourished, other (lethergic ) - EENT Eyes: Present: PERRL, EOM intact ENT: hearing intact - Neck Neck: Present: supple, normal ROM - Respiratory Respiratory effort: normal Respiratory: bilateral: diminished - Cardiovascular Rhythm: regular - Extremities Extremities: no ischemia, No edema, normal temperature, normal color Peripheral Pulses: within normal limits - Abdominal General gastrointestinal: soft, non-tender, non-distended - Psychiatric Psychiatric: other (poor cognition much more cooperative much more alert and able to answer some questions.) - Neurologic Neurologic: CNII-XII intact Results - Labs CBC & Chem 7: 06/24/17 05:40 06/24/17 05:40 Labs: Laboratory Last Values WBC 11.9 K/mm3 (4.5-11.0) H 06/24/17 05:40 RBC 3.26 M/mm3 (3.65-5.03) L 06/24/17 05:40 Hgb 9.9 gm/dl (10.1-14.3) L 06/24/17 05:40 Hct 31.2 % (30.3-42.9) 06/24/17 05:40 MCV 96 fl (79-97) 06/24/17 05:40 MCH 30 pg (28-32) 06/24/17 05:40 MCHC 32 % (30-34) 06/24/17 05:40 RDW 17.0 % (13.2-15.2) H 06/24/17 05:40 Plt Count 271 K/mm3 (140-440) 06/24/17 05:40 Lymph % (Auto) 7.4 % (13.4-35.0) L 06/23/17 07:20 [place] % (Auto) 8.9 % (0.0-7.3) H 06/23/17 07:20 Eos % (Auto) 0.0 % (0.0-4.3) 06/23/17 07:20 Baso % (Auto) 0.3 % (0.0-1.8) 06/23/17 07:20 Lymph # 0.7 K/mm3 (1.2-5.4) L 06/23/17 07:20 [place] # 0.8 K/mm3 (0.0-0.8) 06/23/17 07:20 Eos # 0.0 K/mm3 (0.0-0.4) 06/23/17 07:20 Baso # 0.0 K/mm3 (0.0-0.1) 06/23/17 07:20 Add Manual Diff Complete 06/24/17 05:40 Total Counted 100 06/24/17 05:40 Seg Neutrophils % Director Ship 06/24/17 05:40 Seg Neuts % (Manual) 92.0 % (40.0-70.0) H 06/24/17 05:40 Band Neutrophils % 0 % 06/24/17 05:40 Lymphocytes % (Manual) 5.0 % (13.4-35.0) L 06/24/17 05:40 Reactive Lymphs % (Man) 0 % 06/24/17 05:40 Monocytes % (Manual) 3.0 % (0.0-7.3) 06/24/17 05:40 Eosinophils % (Manual) 0 % (0.0-4.3) 06/24/17 05:40 Basophils % (Manual) 0 % (0.0-1.8) 06/24/17 05:40 Metamyelocytes % 0 % 06/24/17 05:40 Myelocytes % 0 % 06/24/17 05:40 Promyelocytes % 0 % 06/24/17 05:40 Blast Cells % 0 % 06/24/17 05:40 Nucleated RBC % Not Reportable 06/24/17 05:40 Seg Neutrophils # 7.7 K/mm3 (1.8-7.7) 06/23/17 07:20 Seg Neutrophils # Man 10.9 K/mm3 (1.8-7.7) H 06/24/17 05:40 Band Neutrophils # 0.0 K/mm3 06/24/17 05:40 Lymphocytes # (Manual) 0.6 K/mm3 (1.2-5.4) L 06/24/17 05:40 Abs React Lymphs (Man) 0.0 K/mm3 06/24/17 05:40 Monocytes # (Manual) 0.4 K/mm3 (0.0-0.8) 06/24/17 05:40 Eosinophils # (Manual) 0.0 K/mm3 (0.0-0.4) 06/24/17 05:40 Basophils # (Manual) 0.0 K/mm3 (0.0-0.1) 06/24/17 05:40 Metamyelocytes # 0.0 K/mm3 06/24/17 05:40 Myelocytes # 0.0 K/mm3 06/24/17 05:40 Promyelocytes # 0.0 K/mm3 06/24/17 05:40 Blast Cells # 0.0 K/mm3 06/24/17 05:40 WBC Morphology Not Reportable 06/24/17 05:40 Hypersegmented Neuts Not Reportable 06/24/17 05:40 Hyposegmented Neuts Not Reportable 06/24/17 05:40 Hypogranular Neuts Not Reportable 06/24/17 05:40 Smudge Cells Not Reportable 06/24/17 05:40 Toxic Granulation Not Reportable 06/24/17 05:40 Toxic Vacuolation Not Reportable 06/24/17 05:40 Dohle Bodies Not Reportable 06/24/17 05:40 Pelger-Huet Anomaly Not Reportable 06/24/17 05:40 Anastasiya Rods Not Reportable 06/24/17 05:40 Platelet Estimate Consistent w auto 06/24/17 05:40 Clumped Platelets Not Reportable 06/24/17 05:40 Plt Clumps, EDTA Not Reportable 06/24/17 05:40 Large Platelets Not Reportable 06/24/17 05:40 Giant Platelets Not Reportable 06/24/17 05:40 Platelet Satelliting Not Reportable 06/24/17 05:40 Plt Morphology Comment Not Reportable 06/24/17 05:40 RBC Morphology Not Reportable 06/24/17 05:40 Dimorphic RBCs Not Reportable 06/24/17 05:40 Polychromasia Few 06/24/17 05:40 Hypochromasia Not Reportable 06/24/17 05:40 Poikilocytosis Not Reportable 06/24/17 05:40 Anisocytosis 1+ 06/24/17 05:40 Microcytosis Not Reportable 06/24/17 05:40 Macrocytosis Few 06/24/17 05:40 Spherocytes Not Reportable 06/24/17 05:40 Pappenheimer Bodies Not Reportable 06/24/17 05:40 Sickle Cells Not Reportable 06/24/17 05:40 Target Cells Not Reportable 06/24/17 05:40 Tear Drop Cells Not Reportable 06/24/17 05:40 Ovalocytes Not Reportable 06/24/17 05:40 Helmet Cells Not Reportable 06/24/17 05:40 [place] Bodies Not Reportable 06/24/17 05:40 [place] Rings Not Reportable 06/24/17 05:40 [place] Cells Not Reportable 06/24/17 05:40 Bite Cells Not Reportable 06/24/17 05:40 Crenated Cell Not Reportable 06/24/17 05:40 Elliptocytes Not Reportable 06/24/17 05:40 Acanthocytes (Spur) Not Reportable 06/24/17 05:40 Rouleaux Not Reportable 06/24/17 05:40 Hemoglobin C Crystals Not Reportable 06/24/17 05:40 Schistocytes Not Reportable 06/24/17 05:40 Malaria parasites Not Reportable 06/24/17 05:40 [place] Bodies Not Reportable 06/24/17 05:40 Hem Pathologist Commnt No 06/24/17 05:40 PT 16.9 Sec. (12.2-14.9) H 06/15/17 20:21 INR 1.31 (0.87-1.13) H 06/15/17 20:21 APTT 35.3 Sec. (24.2-36.6) 06/15/17 20:21 D-Dimer 985.05 ng/mlDDU (0-234) H 06/15/17 20:21 POC ABG pH 7.391 (7.35-7.45) 06/21/17 13:29 POC ABG pCO2 44.0 (35-45) 06/21/17 13:29 POC ABG pO2 50 (80-105) L 06/21/17 13:29 POC ABG HCO3 26.7 06/21/17 13:29 POC ABG Total CO2 28 06/21/17 13:29 POC ABG O2 Sat 84 06/21/17 13:29 POC ABG Base Excess 2 06/21/17 13:29 VBG pH 7.261 (7.320-7.420) L 06/15/17 19:00 FiO2 40 % 06/21/17 13:29 Sodium 138 mmol/L (137-145) 06/24/17 05:40 Potassium 4.2 mmol/L (3.6-5.0) 06/24/17 05:40 Chloride 97.4 mmol/L (98-107) L 06/24/17 05:40 Carbon Dioxide 23 mmol/L (22-30) 06/24/17 05:40 Anion Gap 22 mmol/L 06/24/17 05:40 BUN 54 mg/dL (7-17) H 06/24/17 05:40 Creatinine 4.9 mg/dL (0.7-1.2) H 06/24/17 05:40 Estimated GFR 10 ml/min 06/24/17 05:40 BUN/Creatinine Ratio 11 % 06/24/17 05:40 Glucose 175 mg/dL (65-100) H 06/24/17 05:40 POC Glucose 181 (70-105) H 06/24/17 07:27 Hemoglobin A1c 11.5 % (4-6) H 06/17/17 03:19 Lactic Acid 1.50 mmol/L (0.7-2.0) 06/17/17 15:12 Calcium 8.4 mg/dL (8.4-10.2) 06/24/17 05:40 Magnesium 1.70 mg/dL (1.7-2.3) 06/20/17 06:00 Total Bilirubin 1.00 mg/dL (0.1-1.2) 06/19/17 04:50 Direct Bilirubin 0.3 mg/dL (0-0.2) H 06/18/17 05:00 Indirect Bilirubin 0.3 mg/dL 06/18/17 05:00 AST 51 units/L (5-40) H 06/19/17 04:50 ALT 95 units/L (7-56) H 06/19/17 04:50 Alkaline Phosphatase 236 units/L (35-129) H 06/19/17 04:50 Total Creatine Kinase 124 units/L (30-135) 06/16/17 10:25 CK-MB (CK-2) 1.9 ng/mL (0.0-4.0) 06/16/17 10:25 CK-MB (CK-2) Rel Index 1.5 (0-4) 06/16/17 10:25 Troponin T < 0.010 ng/mL (0.00-0.029) 06/16/17 10:25 C-Reactive Protein 2.50 mg/dL (0.00-1.30) H 06/18/17 13:57 NT-Pro-B Natriuret Pep 7290 pg/mL (0-900) H 06/15/17 20:21 Total Protein 6.3 g/dL (6.3-8.2) 06/19/17 04:50 Albumin 3.3 g/dL (3.9-5) L 06/19/17 04:50 Albumin/Globulin Ratio 1.1 % 06/19/17 04:50 TSH 0.415 mlU/mL (0.270-4.200) 06/17/17 15:12 Urine Color [place] (Yellow) 06/18/17 00:25 Urine Turbidity Slightly cloudy (Clear) 06/18/17 00:25 Urine pH 5.0 (5.0-7.0) 06/18/17 00:25 Ur Specific [place] 1.041 (1.003-1.030) H 06/18/17 00:25 Urine Protein 100 mg/dl mg/dL (Negative) 06/18/17 00:25 Urine Glucose (UA) 50 mg/dL (Negative) 06/18/17 00:25 Urine Ketones Neg mg/dL (Negative) 06/18/17 00:25 Urine Blood Sm (Negative) 06/18/17 00:25 Urine Nitrite Neg (Negative) 06/18/17 00:25 Urine Bilirubin Neg (Negative) 06/18/17 00:25 Urine Ictotest Negative (Negative) 06/15/17 Unknown Urine Urobilinogen < 2.0 mg/dL (<2.0) 06/18/17 00:25 Ur Leukocyte Esterase Mod (Negative) 06/18/17 00:25 Urine WBC (Auto) 67.0 /HPF (0.0-6.0) H 06/18/17 00:25 Urine RBC (Auto) 25.0 /HPF (0.0-6.0) 06/18/17 00:25 U Epithel Cells (Auto) 24.0 /HPF (0-13.0) H 06/18/17 00:25 Urine Bacteria (Auto) 1+ /HPF (Negative) 06/18/17 00:25 Urine WBC Clumps 2+ /HPF 06/18/17 00:25 Amorphous Crystals 2+ 06/18/17 00:25 Hyaline Casts 3 /LPF 06/18/17 00:25 Urine Mucus Few /HPF 06/18/17 00:25 Rheumatoid Factor < 10 IU/ml (0-13) 06/18/17 14:51 HIV 1&2 Antibody Rapid Non react (Non React) 06/18/17 14:51 HIV P24 Antigen Non react (Non React) 06/18/17 14:51 - Imaging and Cardiology Chest x-ray: report reviewed, image reviewed CT scan - chest: image reviewed CT Scan - head: image reviewed
--- NOTE | 2017-06-24 17:56 | Progress Note ---
Assessment and Plan (1) Altered mental status Current Visit: Yes Status: Acute Qualifiers: Altered mental status type: transient alteration of awareness Qualified Code(s): R40.4 - Transient alteration of awareness Plan to address problem: Improved (2) ESRD (end stage renal disease) Current Visit: No Status: Acute Plan to address problem: Continue dialysis on a Saturday, Saturday and Saturday schedule. (3) History of nephrectomy, unilateral Current Visit: No Status: Acute (4) Hypotension Current Visit: Yes Status: Acute Plan to address problem: Wean Levophed to map of more than 60 mmHg. Continue midodrine. (5) Anemia Current Visit: Yes Status: chronic Plan to address problem: JAN on dialysis Subjective Date of service: 06/24/17 Principal diagnosis: sepsis, ESRD Interval history: No SOB/CP Objective - Vital Signs Vital signs: Vital Signs - 12hr 06/24/17 06/24/17 06/24/17 06:00 06:15 06:30 Temperature Pulse Rate 79 86 79 Pulse Rate [ Anterior Bilateral Throughout] Respiratory 28 H 18 29 H Rate Respiratory Rate [Anterior Bilateral Throughout] Blood Pressure 103/50 95/52 101/54 O2 Sat by Pulse 99 98 98 Oximetry O2 Sat by Pulse Oximetry [ Anterior Bilateral Throughout] 06/24/17 06/24/17 06/24/17 06:45 07:00 07:15 Temperature Pulse Rate 79 79 85 Pulse Rate [ Anterior Bilateral Throughout] Respiratory 16 16 13 Rate Respiratory Rate [Anterior Bilateral Throughout] Blood Pressure 102/54 100/44 107/57 O2 Sat by Pulse 98 98 98 Oximetry O2 Sat by Pulse Oximetry [ Anterior Bilateral Throughout] 06/24/17 06/24/17 06/24/17 07:31 07:45 08:00 Temperature 98.4 F Pulse Rate 78 82 89 Pulse Rate [ Anterior Bilateral Throughout] Respiratory 14 13 16 Rate Respiratory Rate [Anterior Bilateral Throughout] Blood Pressure 91/45 91/45 114/38 O2 Sat by Pulse 98 97 98 Oximetry O2 Sat by Pulse 99 Oximetry [ Anterior Bilateral Throughout] 06/24/17 06/24/17 06/24/17 08:15 08:30 08:43 Temperature Pulse Rate 79 84 Pulse Rate [ 85 88 Anterior Bilateral Throughout] Respiratory 16 18 Rate Respiratory 21 18 Rate [Anterior Bilateral Throughout] Blood Pressure 100/53 165/76 O2 Sat by Pulse 98 98 Oximetry O2 Sat by Pulse Oximetry [ Anterior Bilateral Throughout] 06/24/17 06/24/17 06/24/17 08:45 09:00 09:15 Temperature Pulse Rate 83 86 81 Pulse Rate [ Anterior Bilateral Throughout] Respiratory 14 16 17 Rate Respiratory Rate [Anterior Bilateral Throughout] Blood Pressure 152/80 150/81 154/76 O2 Sat by Pulse 99 98 98 Oximetry O2 Sat by Pulse Oximetry [ Anterior Bilateral Throughout] 06/24/17 06/24/17 06/24/17 09:30 09:35 09:45 Temperature Pulse Rate 76 88 Pulse Rate [ Anterior Bilateral Throughout] Respiratory 13 13 19 Rate Respiratory Rate [Anterior Bilateral Throughout] Blood Pressure 126/67 129/62 O2 Sat by Pulse 99 100 99 Oximetry O2 Sat by Pulse Oximetry [ Anterior Bilateral Throughout] 06/24/17 06/24/17 06/24/17 10:00 10:15 10:30 Temperature Pulse Rate 86 90 82 Pulse Rate [ Anterior Bilateral Throughout] Respiratory 15 16 Rate Respiratory Rate [Anterior Bilateral Throughout] Blood Pressure 138/64 148/69 139/63 O2 Sat by Pulse 99 100 Oximetry O2 Sat by Pulse Oximetry [ Anterior Bilateral Throughout] 06/24/17 06/24/17 06/24/17 10:31 10:45 11:00 Temperature Pulse Rate 78 79 78 Pulse Rate [ Anterior Bilateral Throughout] Respiratory 16 16 Rate Respiratory Rate [Anterior Bilateral Throughout] Blood Pressure 139/63 137/59 138/64 O2 Sat by Pulse 100 100 Oximetry O2 Sat by Pulse Oximetry [ Anterior Bilateral Throughout] 06/24/17 06/24/17 06/24/17 11:01 11:15 11:30 Temperature Pulse Rate 71 74 83 Pulse Rate [ Anterior Bilateral Throughout] Respiratory 16 17 Rate Respiratory Rate [Anterior Bilateral Throughout] Blood Pressure 135/60 145/63 120/63 O2 Sat by Pulse 99 99 Oximetry O2 Sat by Pulse Oximetry [ Anterior Bilateral Throughout] 06/24/17 06/24/17 06/24/17 11:31 11:45 11:50 Temperature 98.4 F Pulse Rate 84 85 84 Pulse Rate [ Anterior Bilateral Throughout] Respiratory 16 15 10 L Rate Respiratory Rate [Anterior Bilateral Throughout] Blood Pressure 144/66 144/67 145/67 O2 Sat by Pulse 98 98 Oximetry O2 Sat by Pulse 99 Oximetry [ Anterior Bilateral Throughout] 06/24/17 06/24/17 06/24/17 12:00 12:01 12:15 Temperature 98.4 F Pulse Rate 85 87 Pulse Rate [ Anterior Bilateral Throughout] Respiratory 17 13 Rate Respiratory Rate [Anterior Bilateral Throughout] Blood Pressure 156/55 148/61 O2 Sat by Pulse 98 99 Oximetry O2 Sat by Pulse Oximetry [ Anterior Bilateral Throughout] 06/24/17 06/24/17 06/24/17 12:30 12:31 12:45 Temperature Pulse Rate 80 91 H Pulse Rate [ Anterior Bilateral Throughout] Respiratory 12 12 14 Rate Respiratory Rate [Anterior Bilateral Throughout] Blood Pressure 139/60 128/74 O2 Sat by Pulse 99 99 91 Oximetry O2 Sat by Pulse Oximetry [ Anterior Bilateral Throughout] 06/24/17 06/24/17 06/24/17 13:01 13:15 13:31 Temperature Pulse Rate 95 H 93 H 85 Pulse Rate [ Anterior Bilateral Throughout] Respiratory 22 21 14 Rate Respiratory Rate [Anterior Bilateral Throughout] Blood Pressure 116/49 123/59 128/59 O2 Sat by Pulse 92 99 99 Oximetry O2 Sat by Pulse Oximetry [ Anterior Bilateral Throughout] 06/24/17 06/24/17 06/24/17 13:45 14:01 14:15 Temperature Pulse Rate 84 82 83 Pulse Rate [ Anterior Bilateral Throughout] Respiratory 12 20 17 Rate Respiratory Rate [Anterior Bilateral Throughout] Blood Pressure 126/53 113/61 129/57 O2 Sat by Pulse 100 99 99 Oximetry O2 Sat by Pulse Oximetry [ Anterior Bilateral Throughout] 06/24/17 06/24/17 06/24/17 14:31 14:45 15:01 Temperature Pulse Rate 92 H 82 81 Pulse Rate [ Anterior Bilateral Throughout] Respiratory 20 19 18 Rate Respiratory Rate [Anterior Bilateral Throughout] Blood Pressure 121/47 121/56 108/51 O2 Sat by Pulse 99 99 98 Oximetry O2 Sat by Pulse Oximetry [ Anterior Bilateral Throughout] 06/24/17 06/24/17 06/24/17 15:15 15:31 15:45 Temperature Pulse Rate 82 81 79 Pulse Rate [ Anterior Bilateral Throughout] Respiratory 17 15 18 Rate Respiratory Rate [Anterior Bilateral Throughout] Blood Pressure 106/51 123/61 112/55 O2 Sat by Pulse 99 100 99 Oximetry O2 Sat by Pulse Oximetry [ Anterior Bilateral Throughout] 06/24/17 06/24/17 06/24/17 16:00 16:01 16:15 Temperature Pulse Rate 78 82 Pulse Rate [ Anterior Bilateral Throughout] Respiratory 17 17 16 Rate Respiratory Rate [Anterior Bilateral Throughout] Blood Pressure 120/51 117/50 O2 Sat by Pulse 97 97 98 Oximetry O2 Sat by Pulse Oximetry [ Anterior Bilateral Throughout] 06/24/17 06/24/17 16:48 17:49 Temperature 98.6 F Pulse Rate Pulse Rate [ 86 Anterior Bilateral Throughout] Respiratory Rate Respiratory 19 Rate [Anterior Bilateral Throughout] Blood Pressure O2 Sat by Pulse Oximetry O2 Sat by Pulse Oximetry [ Anterior Bilateral Throughout] - Lab 06/24/17 05:40 06/24/17 05:40 Most recent lab results Calcium 8.4 mg/dL (8.4-10.2) 06/24/17 05:40 Magnesium 1.70 mg/dL (1.7-2.3) 06/20/17 06:00
[2017-06-24] MEDS: NEURONTIN PO SCH (21:20)
[2017-06-25] MEDS: PROAMATINE PO SCH ×3 (06:28→21:52)
[2017-06-25] MEDS: NOVOLOG SUB-Q SCH ×4 (07:40→21:52)
[2017-06-25] MEDS: DUONEB *Not for PRN Use IH SCH ×3 (08:09→20:38)
--- NOTE | 2017-06-25 09:45 | Progress Note ---
Assessment and Plan 76 y/o female with known renal failure, now admitted to ICU with shock, etiology unknown, RV failure of unknown etiology and acute respiratory failure with pulmonary hypertension 1. Continue Midodrine 2. Will encourage patient to eat 3. Bipap PRN 4. HD per renal MWF 5. Overall prognosis is guarded Subjective Date of service: 06/25/17 Principal diagnosis: sepsis, ESRD Interval history: Levophed has been weaned off. Currently on nasal cannula with good sats. Did not wear bipap last night. No family at bedside. Had HD yesterday. Tolerated Midodrine and did get one dose of hydrocortisone on yesterday. Objective Vital Signs - 12hr 06/24/17 06/24/17 06/24/17 21:45 22:00 22:01 Temperature Pulse Rate 80 80 77 Pulse Rate [ Anterior Bilateral Throughout] Respiratory 13 15 Rate Respiratory Rate [Anterior Bilateral Throughout] Blood Pressure 117/55 129/58 O2 Sat by Pulse 99 98 Oximetry 06/24/17 06/24/17 06/24/17 22:15 22:31 22:45 Temperature Pulse Rate 90 81 83 Pulse Rate [ Anterior Bilateral Throughout] Respiratory 14 12 17 Rate Respiratory Rate [Anterior Bilateral Throughout] Blood Pressure 129/58 130/63 129/58 O2 Sat by Pulse 97 98 99 Oximetry 06/24/17 06/24/17 06/24/17 23:01 23:15 23:30 Temperature 98.2 F Pulse Rate 86 84 Pulse Rate [ Anterior Bilateral Throughout] Respiratory 18 21 Rate Respiratory Rate [Anterior Bilateral Throughout] Blood Pressure 140/64 140/64 O2 Sat by Pulse 98 97 Oximetry 06/24/17 06/24/17 06/25/17 23:31 23:45 00:00 Temperature Pulse Rate 82 83 Pulse Rate [ Anterior Bilateral Throughout] Respiratory 18 13 17 Rate Respiratory Rate [Anterior Bilateral Throughout] Blood Pressure 144/64 123/75 O2 Sat by Pulse 100 97 100 Oximetry 06/25/17 06/25/17 06/25/17 00:01 00:15 00:31 Temperature Pulse Rate 83 83 Pulse Rate [ Anterior Bilateral Throughout] Respiratory 15 15 Rate Respiratory Rate [Anterior Bilateral Throughout] Blood Pressure 123/75 97/70 109/58 O2 Sat by Pulse 97 100 99 Oximetry 06/25/17 06/25/17 06/25/17 00:45 01:01 01:15 Temperature Pulse Rate 90 77 86 Pulse Rate [ Anterior Bilateral Throughout] Respiratory 14 18 15 Rate Respiratory Rate [Anterior Bilateral Throughout] Blood Pressure 109/58 107/56 133/57 O2 Sat by Pulse 98 98 98 Oximetry 06/25/17 06/25/17 06/25/17 01:31 01:45 02:01 Temperature Pulse Rate 77 75 78 Pulse Rate [ Anterior Bilateral Throughout] Respiratory 17 31 H 17 Rate Respiratory Rate [Anterior Bilateral Throughout] Blood Pressure 110/59 110/59 129/52 O2 Sat by Pulse 98 99 95 Oximetry 06/25/17 06/25/17 06/25/17 02:15 02:31 02:45 Temperature Pulse Rate 75 73 81 Pulse Rate [ Anterior Bilateral Throughout] Respiratory 15 16 14 Rate Respiratory Rate [Anterior Bilateral Throughout] Blood Pressure 129/52 129/52 129/52 O2 Sat by Pulse 97 96 96 Oximetry 06/25/17 06/25/17 06/25/17 03:01 03:15 03:31 Temperature Pulse Rate 72 71 79 Pulse Rate [ Anterior Bilateral Throughout] Respiratory 15 16 14 Rate Respiratory Rate [Anterior Bilateral Throughout] Blood Pressure 129/52 132/56 133/56 O2 Sat by Pulse 96 97 96 Oximetry 06/25/17 06/25/17 06/25/17 03:45 03:57 04:00 Temperature 99 F Pulse Rate 72 Pulse Rate [ Anterior Bilateral Throughout] Respiratory 15 16 Rate Respiratory Rate [Anterior Bilateral Throughout] Blood Pressure 133/56 O2 Sat by Pulse 97 98 Oximetry 06/25/17 06/25/17 06/25/17 04:01 04:15 04:31 Temperature Pulse Rate 74 73 85 Pulse Rate [ Anterior Bilateral Throughout] Respiratory 16 16 14 Rate Respiratory Rate [Anterior Bilateral Throughout] Blood Pressure 131/54 131/54 118/64 O2 Sat by Pulse 96 98 97 Oximetry 06/25/17 06/25/17 06/25/17 04:45 05:01 05:15 Temperature Pulse Rate 80 81 87 Pulse Rate [ Anterior Bilateral Throughout] Respiratory 17 17 16 Rate Respiratory Rate [Anterior Bilateral Throughout] Blood Pressure 118/64 124/64 130/91 O2 Sat by Pulse 97 98 95 Oximetry 06/25/17 06/25/17 06/25/17 05:31 05:45 06:01 Temperature Pulse Rate 73 85 93 H Pulse Rate [ Anterior Bilateral Throughout] Respiratory 17 15 16 Rate Respiratory Rate [Anterior Bilateral Throughout] Blood Pressure 142/64 142/64 145/67 O2 Sat by Pulse 96 98 100 Oximetry 06/25/17 06/25/17 06/25/17 06:15 06:31 06:45 Temperature Pulse Rate 81 81 77 Pulse Rate [ Anterior Bilateral Throughout] Respiratory 17 14 16 Rate Respiratory Rate [Anterior Bilateral Throughout] Blood Pressure 145/67 149/62 149/62 O2 Sat by Pulse 99 96 98 Oximetry 06/25/17 06/25/17 06/25/17 07:01 07:15 07:25 Temperature Pulse Rate 77 78 Pulse Rate [ Anterior Bilateral Throughout] Respiratory 18 17 12 Rate Respiratory Rate [Anterior Bilateral Throughout] Blood Pressure 152/61 152/61 O2 Sat by Pulse 98 100 99 Oximetry 06/25/17 06/25/17 06/25/17 07:31 07:45 08:00 Temperature 97.6 F Pulse Rate 84 82 70 Pulse Rate [ Anterior Bilateral Throughout] Respiratory 15 13 16 Rate Respiratory Rate [Anterior Bilateral Throughout] Blood Pressure 148/68 148/68 126/56 O2 Sat by Pulse 98 98 96 Oximetry 06/25/17 06/25/17 06/25/17 08:09 08:10 08:15 Temperature Pulse Rate 87 Pulse Rate [ 73 Anterior Bilateral Throughout] Respiratory 13 Rate Respiratory 16 Rate [Anterior Bilateral Throughout] Blood Pressure 131/59 O2 Sat by Pulse 98 96 Oximetry 06/25/17 06/25/17 06/25/17 08:23 08:31 08:45 Temperature Pulse Rate 74 84 Pulse Rate [ 81 Anterior Bilateral Throughout] Respiratory 16 11 L Rate Respiratory 16 Rate [Anterior Bilateral Throughout] Blood Pressure 136/59 136/59 O2 Sat by Pulse 97 97 Oximetry Constitutional: no acute distress, other (awake) Eyes: non-icteric ENT: oropharynx moist Neck: supple Effort: normal Ascultation: Bilateral: clear, wheezes (faint expiratory bilaterally) Cardiovascular: regular rate and rhythm (no mrg; rhythm appears to be NSR with PACs) Gastrointestinal: normoactive bowel sounds, soft, non-tender, non-distended Integumentary: normal Extremities: no cyanosis, no edema, pink and warm Neurologic: normal mental status (except confusiong), non-focal exam (moves all extremities), pupils equal and round, CN II-XII normal Psychiatric: mood appropriate, affect normal CBC and BMP: 06/24/17 05:40 06/24/17 05:40 ABG, PT/INR, D-dimer: ABG POC ABG pH 7.391 (7.35-7.45) 06/21/17 13:29 POC ABG pCO2 44.0 (35-45) 06/21/17 13:29 POC ABG pO2 50 (80-105) L 06/21/17 13:29 POC ABG HCO3 26.7 06/21/17 13:29 POC ABG Total CO2 28 06/21/17 13:29 POC ABG O2 Sat 84 06/21/17 13:29 PT/INR, D-dimer PT 16.9 Sec. (12.2-14.9) H 06/15/17 20:21 INR 1.31 (0.87-1.13) H 06/15/17 20:21 D-Dimer 985.05 ng/mlDDU (0-234) H 06/15/17 20:21 Abnormal lab findings: Abnormal Labs 06/15/17 06/15/17 06/15/17 17:52 19:00 19:00 WBC 3.7 L RBC 3.25 L Hgb Hct MCV RDW 15.8 H Lymph % (Auto) [place] % (Auto) 7.7 H Lymph # 0.9 L [place] # Seg Neutrophils % Seg Neuts % (Manual) Lymphocytes % (Manual) Seg Neutrophils # Seg Neutrophils # Man Lymphocytes # (Manual) PT INR D-Dimer POC ABG pH POC ABG pCO2 POC ABG pO2 VBG pH Sodium Chloride 96.3 L Carbon Dioxide BUN 32 H Creatinine 3.5 H Glucose 428 H POC Glucose > 500 H Hemoglobin A1c Calcium Direct Bilirubin AST ALT Alkaline Phosphatase Total Creatine Kinase C-Reactive Protein NT-Pro-B Natriuret Pep Albumin Ur Specific [place] Urine WBC (Auto) U Epithel Cells (Auto) 06/15/17 06/15/17 06/15/17 19:00 19:35 20:00 WBC RBC Hgb Hct MCV RDW Lymph % (Auto) [place] % (Auto) Lymph # [place] # Seg Neutrophils % Seg Neuts % (Manual) Lymphocytes % (Manual) Seg Neutrophils # Seg Neutrophils # Man Lymphocytes # (Manual) PT INR D-Dimer POC ABG pH POC ABG pCO2 POC ABG pO2 VBG pH 7.261 L Sodium Chloride Carbon Dioxide BUN Creatinine Glucose POC Glucose 371 H 384 H Hemoglobin A1c Calcium Direct Bilirubin AST ALT Alkaline Phosphatase Total Creatine Kinase C-Reactive Protein NT-Pro-B Natriuret Pep Albumin Ur Specific [place] Urine WBC (Auto) U Epithel Cells (Auto) 06/15/17 06/15/17 06/15/17 20:21 20:21 20:21 WBC RBC Hgb Hct MCV RDW Lymph % (Auto) [place] % (Auto) Lymph # [place] # Seg Neutrophils % Seg Neuts % (Manual) Lymphocytes % (Manual) Seg Neutrophils # Seg Neutrophils # Man Lymphocytes # (Manual) PT 16.9 H INR 1.31 H D-Dimer 985.05 H POC ABG pH POC ABG pCO2 POC ABG pO2 VBG pH Sodium Chloride Carbon Dioxide BUN Creatinine Glucose POC Glucose Hemoglobin A1c Calcium Direct Bilirubin AST ALT Alkaline Phosphatase Total Creatine Kinase 147 H C-Reactive Protein NT-Pro-B Natriuret Pep 7290 H Albumin Ur Specific [place] Urine WBC (Auto) U Epithel Cells (Auto) 06/15/17 06/16/17 06/16/17 Unknown 10:13 13:23 WBC RBC Hgb Hct MCV RDW Lymph % (Auto) [place] % (Auto) Lymph # [place] # Seg Neutrophils % Seg Neuts % (Manual) Lymphocytes % (Manual) Seg Neutrophils # Seg Neutrophils # Man Lymphocytes # (Manual) PT INR D-Dimer POC ABG pH POC ABG pCO2 POC ABG pO2 VBG pH Sodium Chloride Carbon Dioxide BUN Creatinine Glucose POC Glucose 290 H 301 H Hemoglobin A1c Calcium Direct Bilirubin AST ALT Alkaline Phosphatase Total Creatine Kinase C-Reactive Protein NT-Pro-B Natriuret Pep Albumin Ur Specific [place] Urine WBC (Auto) 72.0 H U Epithel Cells (Auto) 06/16/17 06/17/17 06/17/17 17:36 00:16 00:35 WBC RBC Hgb Hct MCV RDW Lymph % (Auto) [place] % (Auto) Lymph # [place] # Seg Neutrophils % Seg Neuts % (Manual) Lymphocytes % (Manual) Seg Neutrophils # Seg Neutrophils # Man Lymphocytes # (Manual) PT INR D-Dimer POC ABG pH POC ABG pCO2 POC ABG pO2 VBG pH Sodium Chloride Carbon Dioxide BUN Creatinine Glucose POC Glucose 120 H < 40 L 188 H Hemoglobin A1c Calcium Direct Bilirubin AST ALT Alkaline Phosphatase Total Creatine Kinase C-Reactive Protein NT-Pro-B Natriuret Pep Albumin Ur Specific [place] Urine WBC (Auto) U Epithel Cells (Auto) 06/17/17 06/17/17 06/17/17 03:19 03:19 03:19 WBC RBC 3.31 L Hgb Hct MCV RDW 16.0 H Lymph % (Auto) [place] % (Auto) Lymph # 1.1 L [place] # Seg Neutrophils % 76.0 H Seg Neuts % (Manual) Lymphocytes % (Manual) Seg Neutrophils # Seg Neutrophils # Man Lymphocytes # (Manual) PT INR D-Dimer POC ABG pH POC ABG pCO2 POC ABG pO2 VBG pH Sodium Chloride Carbon Dioxide BUN 45 H Creatinine 4.5 H Glucose 192 H POC Glucose Hemoglobin A1c 11.5 H Calcium 8.1 L Direct Bilirubin AST ALT Alkaline Phosphatase Total Creatine Kinase C-Reactive Protein NT-Pro-B Natriuret Pep Albumin Ur Specific [place] Urine WBC (Auto) U Epithel Cells (Auto) 06/17/17 06/17/17 06/17/17 03:51 06:44 11:15 WBC RBC Hgb Hct MCV RDW Lymph % (Auto) [place] % (Auto) Lymph # [place] # Seg Neutrophils % Seg Neuts % (Manual) Lymphocytes % (Manual) Seg Neutrophils # Seg Neutrophils # Man Lymphocytes # (Manual) PT INR D-Dimer POC ABG pH POC ABG pCO2 POC ABG pO2 VBG pH Sodium Chloride Carbon Dioxide BUN Creatinine Glucose POC Glucose 184 H 326 H 380 H Hemoglobin A1c Calcium Direct Bilirubin AST ALT Alkaline Phosphatase Total Creatine Kinase C-Reactive Protein NT-Pro-B Natriuret Pep Albumin Ur Specific [place] Urine WBC (Auto) U Epithel Cells (Auto) 06/17/17 06/17/17 06/18/17 17:56 23:35 00:02 WBC RBC Hgb Hct MCV RDW Lymph % (Auto) [place] % (Auto) Lymph # [place] # Seg Neutrophils % Seg Neuts % (Manual) Lymphocytes % (Manual) Seg Neutrophils # Seg Neutrophils # Man Lymphocytes # (Manual) PT INR D-Dimer POC ABG pH 7.314 L POC ABG pCO2 48.8 H POC ABG pO2 53 L VBG pH Sodium Chloride Carbon Dioxide BUN Creatinine Glucose POC Glucose 59 L < 40 L Hemoglobin A1c Calcium Direct Bilirubin AST ALT Alkaline Phosphatase Total Creatine Kinase C-Reactive Protein NT-Pro-B Natriuret Pep Albumin Ur Specific [place] Urine WBC (Auto) U Epithel Cells (Auto) 06/18/17 06/18/17 06/18/17 00:08 00:25 00:43 WBC RBC Hgb Hct MCV RDW Lymph % (Auto) [place] % (Auto) Lymph # [place] # Seg Neutrophils % Seg Neuts % (Manual) Lymphocytes % (Manual) Seg Neutrophils # Seg Neutrophils # Man Lymphocytes # (Manual) PT INR D-Dimer POC ABG pH POC ABG pCO2 POC ABG pO2 VBG pH Sodium 136 L Chloride 95.8 L Carbon Dioxide BUN 21 H Creatinine 2.9 H Glucose 131 H POC Glucose 151 H Hemoglobin A1c Calcium 8.2 L Direct Bilirubin AST ALT Alkaline Phosphatase Total Creatine Kinase C-Reactive Protein NT-Pro-B Natriuret Pep Albumin Ur Specific [place] 1.041 H Urine WBC (Auto) 67.0 H U Epithel Cells (Auto) 24.0 H 06/18/17 06/18/17 06/18/17 02:11 05:00 05:00 WBC RBC 3.22 L Hgb Hct MCV RDW 16.2 H Lymph % (Auto) 10.3 L [place] % (Auto) Lymph # 0.7 L [place] # Seg Neutrophils % 81.3 H Seg Neuts % (Manual) Lymphocytes % (Manual) Seg Neutrophils # Seg Neutrophils # Man Lymphocytes # (Manual) PT INR D-Dimer POC ABG pH POC ABG pCO2 POC ABG pO2 VBG pH Sodium Chloride Carbon Dioxide BUN 21 H Creatinine 3.2 H Glucose 159 H POC Glucose 183 H Hemoglobin A1c Calcium 7.9 L Direct Bilirubin 0.3 H AST 73 H ALT 112 H Alkaline Phosphatase 207 H Total Creatine Kinase C-Reactive Protein NT-Pro-B Natriuret Pep Albumin 3.4 L Ur Specific [place] Urine WBC (Auto) U Epithel Cells (Auto) 06/18/17 06/18/17 06/18/17 05:31 09:25 12:30 WBC RBC Hgb Hct MCV RDW Lymph % (Auto) [place] % (Auto) Lymph # [place] # Seg Neutrophils % Seg Neuts % (Manual) Lymphocytes % (Manual) Seg Neutrophils # Seg Neutrophils # Man Lymphocytes # (Manual) PT INR D-Dimer POC ABG pH POC ABG pCO2 POC ABG pO2 72 L VBG pH Sodium Chloride Carbon Dioxide BUN Creatinine Glucose POC Glucose 181 H 286 H Hemoglobin A1c Calcium Direct Bilirubin AST ALT Alkaline Phosphatase Total Creatine Kinase C-Reactive Protein NT-Pro-B Natriuret Pep Albumin Ur Specific [place] Urine WBC (Auto) U Epithel Cells (Auto) 06/18/17 06/18/17 06/18/17 13:57 21:30 22:45 WBC RBC Hgb Hct MCV RDW Lymph % (Auto) [place] % (Auto) Lymph # [place] # Seg Neutrophils % Seg Neuts % (Manual) Lymphocytes % (Manual) Seg Neutrophils # Seg Neutrophils # Man Lymphocytes # (Manual) PT INR D-Dimer POC ABG pH POC ABG pCO2 POC ABG pO2 VBG pH Sodium Chloride Carbon Dioxide BUN Creatinine Glucose POC Glucose 67 L 206 H Hemoglobin A1c Calcium Direct Bilirubin AST ALT Alkaline Phosphatase Total Creatine Kinase C-Reactive Protein 2.50 H NT-Pro-B Natriuret Pep Albumin Ur Specific [place] Urine WBC (Auto) U Epithel Cells (Auto) 06/19/17 06/19/17 06/19/17 00:56 04:50 04:50 WBC RBC 3.02 L Hgb 9.7 L Hct 29.4 L MCV RDW 16.9 H Lymph % (Auto) 5.9 L [place] % (Auto) Lymph # 0.5 L [place] # Seg Neutrophils % 87.3 H Seg Neuts % (Manual) Lymphocytes % (Manual) Seg Neutrophils # Seg Neutrophils # Man Lymphocytes # (Manual) PT INR D-Dimer POC ABG pH POC ABG pCO2 POC ABG pO2 VBG pH Sodium 136 L Chloride 96.2 L Carbon Dioxide BUN 27 H Creatinine 4.3 H Glucose 111 H POC Glucose 150 H Hemoglobin A1c Calcium 8.0 L Direct Bilirubin AST 51 H ALT 95 H Alkaline Phosphatase 236 H Total Creatine Kinase C-Reactive Protein NT-Pro-B Natriuret Pep Albumin 3.3 L Ur Specific [place] Urine WBC (Auto) U Epithel Cells (Auto) 06/19/17 06/19/17 06/19/17 07:47 12:36 15:18 WBC RBC Hgb Hct MCV RDW Lymph % (Auto) [place] % (Auto) Lymph # [place] # Seg Neutrophils % Seg Neuts % (Manual) Lymphocytes % (Manual) Seg Neutrophils # Seg Neutrophils # Man Lymphocytes # (Manual) PT INR D-Dimer POC ABG pH 7.256 L POC ABG pCO2 48.3 H POC ABG pO2 62 L VBG pH Sodium Chloride Carbon Dioxide BUN Creatinine Glucose POC Glucose 108 H 181 H Hemoglobin A1c Calcium Direct Bilirubin AST ALT Alkaline Phosphatase Total Creatine Kinase C-Reactive Protein NT-Pro-B Natriuret Pep Albumin Ur Specific [place] Urine WBC (Auto) U Epithel Cells (Auto) 06/19/17 06/19/17 06/19/17 18:22 18:23 21:40 WBC RBC Hgb Hct MCV RDW Lymph % (Auto) [place] % (Auto) Lymph # [place] # Seg Neutrophils % Seg Neuts % (Manual) Lymphocytes % (Manual) Seg Neutrophils # Seg Neutrophils # Man Lymphocytes # (Manual) PT INR D-Dimer POC ABG pH 7.247 L POC ABG pCO2 50.5 H POC ABG pO2 108 H VBG pH Sodium Chloride Carbon Dioxide BUN Creatinine Glucose POC Glucose 177 H 217 H Hemoglobin A1c Calcium Direct Bilirubin AST ALT Alkaline Phosphatase Total Creatine Kinase C-Reactive Protein NT-Pro-B Natriuret Pep Albumin Ur Specific [place] Urine WBC (Auto) U Epithel Cells (Auto) 06/20/17 06/20/17 06/20/17 00:15 06:00 06:00 WBC 11.7 H RBC 2.78 L Hgb 8.7 L Hct 26.8 L MCV RDW 17.1 H Lymph % (Auto) 5.6 L [place] % (Auto) 7.9 H Lymph # 0.7 L [place] # 0.9 H Seg Neutrophils % 86.1 H Seg Neuts % (Manual) Lymphocytes % (Manual) Seg Neutrophils # 10.0 H Seg Neutrophils # Man Lymphocytes # (Manual) PT INR D-Dimer POC ABG pH POC ABG pCO2 POC ABG pO2 VBG pH Sodium Chloride Carbon Dioxide BUN Creatinine 3.0 H Glucose 167 H POC Glucose 243 H Hemoglobin A1c Calcium 7.7 L Direct Bilirubin AST ALT Alkaline Phosphatase Total Creatine Kinase C-Reactive Protein NT-Pro-B Natriuret Pep Albumin Ur Specific [place] Urine WBC (Auto) U Epithel Cells (Auto) 06/20/17 06/20/17 06/20/17 09:01 10:53 11:10 WBC RBC Hgb Hct MCV RDW Lymph % (Auto) [place] % (Auto) Lymph # [place] # Seg Neutrophils % Seg Neuts % (Manual) Lymphocytes % (Manual) Seg Neutrophils # Seg Neutrophils # Man Lymphocytes # (Manual) PT INR D-Dimer POC ABG pH POC ABG pCO2 POC ABG pO2 57 L VBG pH Sodium Chloride Carbon Dioxide BUN Creatinine Glucose POC Glucose 199 H 205 H Hemoglobin A1c Calcium Direct Bilirubin AST ALT Alkaline Phosphatase Total Creatine Kinase C-Reactive Protein NT-Pro-B Natriuret Pep Albumin Ur Specific [place] Urine WBC (Auto) U Epithel Cells (Auto) 06/20/17 06/20/17 06/20/17 16:16 21:34 22:02 WBC RBC Hgb Hct MCV RDW Lymph % (Auto) [place] % (Auto) Lymph # [place] # Seg Neutrophils % Seg Neuts % (Manual) Lymphocytes % (Manual) Seg Neutrophils # Seg Neutrophils # Man Lymphocytes # (Manual) PT INR D-Dimer POC ABG pH POC ABG pCO2 POC ABG pO2 VBG pH Sodium Chloride Carbon Dioxide BUN Creatinine Glucose POC Glucose 233 H 150 H 158 H Hemoglobin A1c Calcium Direct Bilirubin AST ALT Alkaline Phosphatase Total Creatine Kinase C-Reactive Protein NT-Pro-B Natriuret Pep Albumin Ur Specific [place] Urine WBC (Auto) U Epithel Cells (Auto) 06/21/17 06/21/17 06/21/17 04:30 04:30 07:35 WBC RBC 2.63 L Hgb 8.4 L Hct 25.6 L MCV RDW 17.4 H Lymph % (Auto) 8.6 L [place] % (Auto) Lymph # 0.8 L [place] # Seg Neutrophils % 84.0 H Seg Neuts % (Manual) Lymphocytes % (Manual) Seg Neutrophils # 8.0 H Seg Neutrophils # Man Lymphocytes # (Manual) PT INR D-Dimer POC ABG pH POC ABG pCO2 POC ABG pO2 VBG pH Sodium 136 L Chloride 96.0 L Carbon Dioxide BUN 28 H Creatinine 4.1 H Glucose 160 H POC Glucose 217 H Hemoglobin A1c Calcium 7.9 L Direct Bilirubin AST ALT Alkaline Phosphatase Total Creatine Kinase C-Reactive Protein NT-Pro-B Natriuret Pep Albumin Ur Specific [place] Urine WBC (Auto) U Epithel Cells (Auto) 06/21/17 06/21/17 06/21/17 11:33 13:29 16:47 WBC RBC Hgb Hct MCV RDW Lymph % (Auto) [place] % (Auto) Lymph # [place] # Seg Neutrophils % Seg Neuts % (Manual) Lymphocytes % (Manual) Seg Neutrophils # Seg Neutrophils # Man Lymphocytes # (Manual) PT INR D-Dimer POC ABG pH POC ABG pCO2 POC ABG pO2 50 L VBG pH Sodium Chloride Carbon Dioxide BUN Creatinine Glucose POC Glucose 170 H 216 H Hemoglobin A1c Calcium Direct Bilirubin AST ALT Alkaline Phosphatase Total Creatine Kinase C-Reactive Protein NT-Pro-B Natriuret Pep Albumin Ur Specific [place] Urine WBC (Auto) U Epithel Cells (Auto) 06/21/17 06/22/17 06/22/17 21:06 06:20 06:20 WBC RBC 3.00 L Hgb 9.5 L Hct 29.3 L MCV 98 H RDW 17.5 H Lymph % (Auto) 11.0 L [place] % (Auto) Lymph # 0.8 L [place] # Seg Neutrophils % 86.8 H Seg Neuts % (Manual) Lymphocytes % (Manual) Seg Neutrophils # Seg Neutrophils # Man Lymphocytes # (Manual) PT INR D-Dimer POC ABG pH POC ABG pCO2 POC ABG pO2 VBG pH Sodium Chloride 95.6 L Carbon Dioxide 21 L BUN 19 H Creatinine 2.9 H Glucose 187 H POC Glucose 141 H Hemoglobin A1c Calcium 8.2 L Direct Bilirubin AST ALT Alkaline Phosphatase Total Creatine Kinase C-Reactive Protein NT-Pro-B Natriuret Pep Albumin Ur Specific [place] Urine WBC (Auto) U Epithel Cells (Auto) 06/22/17 06/22/17 06/22/17 06:31 07:53 12:01 WBC RBC Hgb Hct MCV RDW Lymph % (Auto) [place] % (Auto) Lymph # [place] # Seg Neutrophils % Seg Neuts % (Manual) Lymphocytes % (Manual) Seg Neutrophils # Seg Neutrophils # Man Lymphocytes # (Manual) PT INR D-Dimer POC ABG pH POC ABG pCO2 POC ABG pO2 VBG pH Sodium Chloride Carbon Dioxide BUN Creatinine Glucose POC Glucose 197 H 203 H 297 H Hemoglobin A1c Calcium Direct Bilirubin AST ALT Alkaline Phosphatase Total Creatine Kinase C-Reactive Protein NT-Pro-B Natriuret Pep Albumin Ur Specific [place] Urine WBC (Auto) U Epithel Cells (Auto) 06/22/17 06/22/17 06/23/17 16:32 21:29 07:20 WBC RBC 2.93 L Hgb 9.3 L Hct 28.2 L MCV RDW 17.1 H Lymph % (Auto) 7.4 L [place] % (Auto) 8.9 H Lymph # 0.7 L [place] # Seg Neutrophils % 83.4 H Seg Neuts % (Manual) Lymphocytes % (Manual) Seg Neutrophils # Seg Neutrophils # Man Lymphocytes # (Manual) PT INR D-Dimer POC ABG pH POC ABG pCO2 POC ABG pO2 VBG pH Sodium Chloride Carbon Dioxide BUN Creatinine Glucose POC Glucose 370 H 400 H Hemoglobin A1c Calcium Direct Bilirubin AST ALT Alkaline Phosphatase Total Creatine Kinase C-Reactive Protein NT-Pro-B Natriuret Pep Albumin Ur Specific [place] Urine WBC (Auto) U Epithel Cells (Auto) 06/23/17 06/23/17 06/23/17 07:20 07:45 12:22 WBC RBC Hgb Hct MCV RDW Lymph % (Auto) [place] % (Auto) Lymph # [place] # Seg Neutrophils % Seg Neuts % (Manual) Lymphocytes % (Manual) Seg Neutrophils # Seg Neutrophils # Man Lymphocytes # (Manual) PT INR D-Dimer POC ABG pH POC ABG pCO2 POC ABG pO2 VBG pH Sodium Chloride 96.7 L Carbon Dioxide BUN 41 H Creatinine 4.3 H Glucose 281 H POC Glucose 293 H 416 H Hemoglobin A1c Calcium 8.2 L Direct Bilirubin AST ALT Alkaline Phosphatase Total Creatine Kinase C-Reactive Protein NT-Pro-B Natriuret Pep Albumin Ur Specific [place] Urine WBC (Auto) U Epithel Cells (Auto) 06/23/17 06/24/17 06/24/17 21:56 05:40 05:40 WBC 11.9 H RBC 3.26 L Hgb 9.9 L Hct MCV RDW 17.0 H Lymph % (Auto) [place] % (Auto) Lymph # [place] # Seg Neutrophils % Seg Neuts % (Manual) 92.0 H Lymphocytes % (Manual) 5.0 L Seg Neutrophils # Seg Neutrophils # Man 10.9 H Lymphocytes # (Manual) 0.6 L PT INR D-Dimer POC ABG pH POC ABG pCO2 POC ABG pO2 VBG pH Sodium Chloride 97.4 L Carbon Dioxide BUN 54 H Creatinine 4.9 H Glucose 175 H POC Glucose 310 H Hemoglobin A1c Calcium Direct Bilirubin AST ALT Alkaline Phosphatase Total Creatine Kinase C-Reactive Protein NT-Pro-B Natriuret Pep Albumin Ur Specific [place] Urine WBC (Auto) U Epithel Cells (Auto) 06/24/17 06/24/17 06/24/17 07:27 12:23 16:43 WBC RBC Hgb Hct MCV RDW Lymph % (Auto) [place] % (Auto) Lymph # [place] # Seg Neutrophils % Seg Neuts % (Manual) Lymphocytes % (Manual) Seg Neutrophils # Seg Neutrophils # Man Lymphocytes # (Manual) PT INR D-Dimer POC ABG pH POC ABG pCO2 POC ABG pO2 VBG pH Sodium Chloride Carbon Dioxide BUN Creatinine Glucose POC Glucose 181 H 188 H 301 H Hemoglobin A1c Calcium Direct Bilirubin AST ALT Alkaline Phosphatase Total Creatine Kinase C-Reactive Protein NT-Pro-B Natriuret Pep Albumin Ur Specific [place] Urine WBC (Auto) U Epithel Cells (Auto) 06/24/17 06/25/17 21:33 07:50 WBC RBC Hgb Hct MCV RDW Lymph % (Auto) [place] % (Auto) Lymph # [place] # Seg Neutrophils % Seg Neuts % (Manual) Lymphocytes % (Manual) Seg Neutrophils # Seg Neutrophils # Man Lymphocytes # (Manual) PT INR D-Dimer POC ABG pH POC ABG pCO2 POC ABG pO2 VBG pH Sodium Chloride Carbon Dioxide BUN Creatinine Glucose POC Glucose 204 H 132 H Hemoglobin A1c Calcium Direct Bilirubin AST ALT Alkaline Phosphatase Total Creatine Kinase C-Reactive Protein NT-Pro-B Natriuret Pep Albumin Ur Specific [place] Urine WBC (Auto) U Epithel Cells (Auto)
[2017-06-25] MEDS: LOVENOX SUB-Q SCH (10:38)
[2017-06-25] MEDS: PROTONIX PO SCH (10:38)
[2017-06-25] MEDS: LEVEMIR SUB-Q SCH (10:39)
--- NOTE | 2017-06-25 15:54 | Progress Note ---
Assessment and Plan (1) Altered mental status Current Visit: Yes Status: Acute Qualifiers: Altered mental status type: transient alteration of awareness Qualified Code(s): R40.4 - Transient alteration of awareness Plan to address problem: Improved, back to baseline (2) ESRD (end stage renal disease) Current Visit: No Status: Acute Plan to address problem: Continue dialysis on a Saturday, Saturday and Saturday schedule. (3) History of nephrectomy, unilateral Current Visit: No Status: Acute Stable. (4) Hypotension Current Visit: Yes Status: Acute Plan to address problem: Off Levophed. Continue Midodrine (5) Anemia Current Visit: Yes Status: chronic Plan to address problem: JAN on dialysis Subjective Date of service: 06/25/17 Principal diagnosis: sepsis, ESRD Interval history: Feels better, more alert, off levo Objective - Exam Narrative Exam: Elderly -[place] female lying in bed in no acute distress HEENT: NCAT, pink oral mucous membrane Neck: Supple, no venous distention CVS: S1S2 RRR with no murmur, rub or gallop Chest: decreased BS b/L, no wheezing Abdomen: Protuberant, soft, nontender, no organomegaly, bowel sounds are present Extremities: No edema, no clubbing Neuro: AO x3, no focal deficits - Vital Signs Vital signs: Vital Signs - 12hr 06/25/17 06/25/17 06/25/17 03:57 04:00 04:01 Temperature 99 F Pulse Rate 74 Pulse Rate [ Anterior Bilateral Throughout] Respiratory 16 16 Rate Respiratory Rate [Anterior Bilateral Throughout] Blood Pressure 131/54 O2 Sat by Pulse 98 96 Oximetry 06/25/17 06/25/17 06/25/17 04:15 04:31 04:45 Temperature Pulse Rate 73 85 80 Pulse Rate [ Anterior Bilateral Throughout] Respiratory 16 14 17 Rate Respiratory Rate [Anterior Bilateral Throughout] Blood Pressure 131/54 118/64 118/64 O2 Sat by Pulse 98 97 97 Oximetry 06/25/17 06/25/17 06/25/17 05:01 05:15 05:31 Temperature Pulse Rate 81 87 73 Pulse Rate [ Anterior Bilateral Throughout] Respiratory 17 16 17 Rate Respiratory Rate [Anterior Bilateral Throughout] Blood Pressure 124/64 130/91 142/64 O2 Sat by Pulse 98 95 96 Oximetry 06/25/17 06/25/17 06/25/17 05:45 06:01 06:15 Temperature Pulse Rate 85 93 H 81 Pulse Rate [ Anterior Bilateral Throughout] Respiratory 15 16 17 Rate Respiratory Rate [Anterior Bilateral Throughout] Blood Pressure 142/64 145/67 145/67 O2 Sat by Pulse 98 100 99 Oximetry 06/25/17 06/25/17 06/25/17 06:31 06:45 07:01 Temperature Pulse Rate 81 77 77 Pulse Rate [ Anterior Bilateral Throughout] Respiratory 14 16 18 Rate Respiratory Rate [Anterior Bilateral Throughout] Blood Pressure 149/62 149/62 152/61 O2 Sat by Pulse 96 98 98 Oximetry 06/25/17 06/25/17 06/25/17 07:15 07:25 07:31 Temperature Pulse Rate 78 84 Pulse Rate [ Anterior Bilateral Throughout] Respiratory 17 12 15 Rate Respiratory Rate [Anterior Bilateral Throughout] Blood Pressure 152/61 148/68 O2 Sat by Pulse 100 99 98 Oximetry 06/25/17 06/25/17 06/25/17 07:45 08:00 08:09 Temperature 97.6 F Pulse Rate 82 70 Pulse Rate [ Anterior Bilateral Throughout] Respiratory 13 16 Rate Respiratory Rate [Anterior Bilateral Throughout] Blood Pressure 148/68 126/56 O2 Sat by Pulse 98 96 98 Oximetry 06/25/17 06/25/17 06/25/17 08:10 08:15 08:23 Temperature Pulse Rate 87 Pulse Rate [ 73 81 Anterior Bilateral Throughout] Respiratory 13 Rate Respiratory 16 16 Rate [Anterior Bilateral Throughout] Blood Pressure 131/59 O2 Sat by Pulse 96 Oximetry 06/25/17 06/25/17 06/25/17 08:31 08:45 09:01 Temperature Pulse Rate 74 84 94 H Pulse Rate [ Anterior Bilateral Throughout] Respiratory 16 11 L 21 Rate Respiratory Rate [Anterior Bilateral Throughout] Blood Pressure 136/59 136/59 136/59 O2 Sat by Pulse 97 97 97 Oximetry 06/25/17 06/25/17 06/25/17 09:15 09:31 09:45 Temperature Pulse Rate 82 77 80 Pulse Rate [ Anterior Bilateral Throughout] Respiratory 14 16 17 Rate Respiratory Rate [Anterior Bilateral Throughout] Blood Pressure 136/59 136/59 137/53 O2 Sat by Pulse 97 96 96 Oximetry 06/25/17 06/25/17 06/25/17 10:01 10:15 10:30 Temperature Pulse Rate 77 82 81 Pulse Rate [ Anterior Bilateral Throughout] Respiratory 17 11 L 13 Rate Respiratory Rate [Anterior Bilateral Throughout] Blood Pressure 124/49 124/49 104/54 O2 Sat by Pulse 95 99 98 Oximetry 06/25/17 06/25/17 06/25/17 10:45 11:01 11:15 Temperature Pulse Rate 85 88 80 Pulse Rate [ Anterior Bilateral Throughout] Respiratory 16 13 17 Rate Respiratory Rate [Anterior Bilateral Throughout] Blood Pressure 104/54 85/49 85/49 O2 Sat by Pulse 100 97 98 Oximetry 06/25/17 06/25/17 06/25/17 11:31 11:45 12:00 Temperature 98.3 F Pulse Rate 88 79 Pulse Rate [ Anterior Bilateral Throughout] Respiratory 17 16 Rate Respiratory Rate [Anterior Bilateral Throughout] Blood Pressure 103/43 103/43 O2 Sat by Pulse 96 98 Oximetry 06/25/17 06/25/17 06/25/17 12:01 12:10 12:15 Temperature Pulse Rate 77 90 Pulse Rate [ Anterior Bilateral Throughout] Respiratory 17 17 17 Rate Respiratory Rate [Anterior Bilateral Throughout] Blood Pressure 103/43 101/53 O2 Sat by Pulse 97 100 97 Oximetry 06/25/17 06/25/17 06/25/17 12:30 12:45 13:00 Temperature Pulse Rate 77 81 88 Pulse Rate [ Anterior Bilateral Throughout] Respiratory 17 17 17 Rate Respiratory Rate [Anterior Bilateral Throughout] Blood Pressure 87/48 87/48 113/55 O2 Sat by Pulse 97 98 97 Oximetry 06/25/17 06/25/17 06/25/17 13:15 13:30 14:59 Temperature Pulse Rate 92 H 104 H Pulse Rate [ 87 Anterior Bilateral Throughout] Respiratory 16 Rate Respiratory 18 Rate [Anterior Bilateral Throughout] Blood Pressure 113/55 O2 Sat by Pulse 97 Oximetry 06/25/17 15:11 Temperature Pulse Rate Pulse Rate [ 85 Anterior Bilateral Throughout] Respiratory Rate Respiratory 16 Rate [Anterior Bilateral Throughout] Blood Pressure O2 Sat by Pulse Oximetry - Lab 06/24/17 05:40 06/24/17 05:40 Most recent lab results Calcium 8.4 mg/dL (8.4-10.2) 06/24/17 05:40 Magnesium 1.70 mg/dL (1.7-2.3) 06/20/17 06:00
--- NOTE | 2017-06-25 18:20 | Progress Note ---
Assessment and Plan Assessment and plan: Sepsis with septic shock secondary to UTI - Was treated with IV Zosyn and currently off IV antibiotics - Blood pressure is holding and patient is off pressors - We'll increase midodrine to 10 mg by mouth 3 times a day End-stage renal disease on hemodialysis - Nephrology is following Acute on chronic respiratory failure - Patient is on intranasal oxygen currently DVT prophylaxis Disposition - Possible transfer to the floor tomorrow if continued to be stable. History Interval history: Patient was seen and evaluated this morning, I have discussed the management plan with the patient and her who was in the room by the time of examination. Hospitalist Physical - Physical exam Narrative exam: Not in cardiopulmonary distress. On intranasal oxygen. The patient appeared well nourished and normally developed. Vital signs as documented. Head exam is unremarkable. No scleral icterus . Neck is without jugular venous distension, thyromegaly, or carotid bruits. Lungs are clear to auscultation. Cardiac exam reveals regular rate and Rhythm. First and second heart sounds normal. No murmurs, rubs or gallops. Abdominal exam reveals normal bowel sounds, no masses, no organomegaly and no aortic enlargement. Extremities are nonedematous and both femoral and pedal pulses are normal. CHIROPRACTIC ASSISTANT: Alert and oriented 3. No focal weakness. - Constitutional Vitals: Temp Pulse Resp BP Pulse Ox 98.5 F 83 17 137/67 98 06/25/17 16:00 06/25/17 18:01 06/25/17 18:01 06/25/17 18:01 06/25/17 18:01 General appearance: Present: no acute distress, well-nourished, other (lethergic ) Results - Labs CBC & Chem 7: 06/24/17 05:40 06/24/17 05:40 Labs: Laboratory Last Values WBC 11.9 K/mm3 (4.5-11.0) H 06/24/17 05:40 RBC 3.26 M/mm3 (3.65-5.03) L 06/24/17 05:40 Hgb 9.9 gm/dl (10.1-14.3) L 06/24/17 05:40 Hct 31.2 % (30.3-42.9) 06/24/17 05:40 MCV 96 fl (79-97) 06/24/17 05:40 MCH 30 pg (28-32) 06/24/17 05:40 MCHC 32 % (30-34) 06/24/17 05:40 RDW 17.0 % (13.2-15.2) H 06/24/17 05:40 Plt Count 271 K/mm3 (140-440) 06/24/17 05:40 Lymph % (Auto) 7.4 % (13.4-35.0) L 06/23/17 07:20 [place] % (Auto) 8.9 % (0.0-7.3) H 06/23/17 07:20 Eos % (Auto) 0.0 % (0.0-4.3) 06/23/17 07:20 Baso % (Auto) 0.3 % (0.0-1.8) 06/23/17 07:20 Lymph # 0.7 K/mm3 (1.2-5.4) L 06/23/17 07:20 [place] # 0.8 K/mm3 (0.0-0.8) 06/23/17 07:20 Eos # 0.0 K/mm3 (0.0-0.4) 06/23/17 07:20 Baso # 0.0 K/mm3 (0.0-0.1) 06/23/17 07:20 Add Manual Diff Complete 06/24/17 05:40 Total Counted 100 06/24/17 05:40 Seg Neutrophils % Grinder Setup Operator 06/24/17 05:40 Seg Neuts % (Manual) 92.0 % (40.0-70.0) H 06/24/17 05:40 Band Neutrophils % 0 % 06/24/17 05:40 Lymphocytes % (Manual) 5.0 % (13.4-35.0) L 06/24/17 05:40 Reactive Lymphs % (Man) 0 % 06/24/17 05:40 Monocytes % (Manual) 3.0 % (0.0-7.3) 06/24/17 05:40 Eosinophils % (Manual) 0 % (0.0-4.3) 06/24/17 05:40 Basophils % (Manual) 0 % (0.0-1.8) 06/24/17 05:40 Metamyelocytes % 0 % 06/24/17 05:40 Myelocytes % 0 % 06/24/17 05:40 Promyelocytes % 0 % 06/24/17 05:40 Blast Cells % 0 % 06/24/17 05:40 Nucleated RBC % Not Reportable 06/24/17 05:40 Seg Neutrophils # 7.7 K/mm3 (1.8-7.7) 06/23/17 07:20 Seg Neutrophils # Man 10.9 K/mm3 (1.8-7.7) H 06/24/17 05:40 Band Neutrophils # 0.0 K/mm3 06/24/17 05:40 Lymphocytes # (Manual) 0.6 K/mm3 (1.2-5.4) L 06/24/17 05:40 Abs React Lymphs (Man) 0.0 K/mm3 06/24/17 05:40 Monocytes # (Manual) 0.4 K/mm3 (0.0-0.8) 06/24/17 05:40 Eosinophils # (Manual) 0.0 K/mm3 (0.0-0.4) 06/24/17 05:40 Basophils # (Manual) 0.0 K/mm3 (0.0-0.1) 06/24/17 05:40 Metamyelocytes # 0.0 K/mm3 06/24/17 05:40 Myelocytes # 0.0 K/mm3 06/24/17 05:40 Promyelocytes # 0.0 K/mm3 06/24/17 05:40 Blast Cells # 0.0 K/mm3 06/24/17 05:40 WBC Morphology Not Reportable 06/24/17 05:40 Hypersegmented Neuts Not Reportable 06/24/17 05:40 Hyposegmented Neuts Not Reportable 06/24/17 05:40 Hypogranular Neuts Not Reportable 06/24/17 05:40 Smudge Cells Not Reportable 06/24/17 05:40 Toxic Granulation Not Reportable 06/24/17 05:40 Toxic Vacuolation Not Reportable 06/24/17 05:40 Dohle Bodies Not Reportable 06/24/17 05:40 Pelger-Huet Anomaly Not Reportable 06/24/17 05:40 Anastasiya Rods Not Reportable 06/24/17 05:40 Platelet Estimate Consistent w auto 06/24/17 05:40 Clumped Platelets Not Reportable 06/24/17 05:40 Plt Clumps, EDTA Not Reportable 06/24/17 05:40 Large Platelets Not Reportable 06/24/17 05:40 Giant Platelets Not Reportable 06/24/17 05:40 Platelet Satelliting Not Reportable 06/24/17 05:40 Plt Morphology Comment Not Reportable 06/24/17 05:40 RBC Morphology Not Reportable 06/24/17 05:40 Dimorphic RBCs Not Reportable 06/24/17 05:40 Polychromasia Few 06/24/17 05:40 Hypochromasia Not Reportable 06/24/17 05:40 Poikilocytosis Not Reportable 06/24/17 05:40 Anisocytosis 1+ 06/24/17 05:40 Microcytosis Not Reportable 06/24/17 05:40 Macrocytosis Few 06/24/17 05:40 Spherocytes Not Reportable 06/24/17 05:40 Pappenheimer Bodies Not Reportable 06/24/17 05:40 Sickle Cells Not Reportable 06/24/17 05:40 Target Cells Not Reportable 06/24/17 05:40 Tear Drop Cells Not Reportable 06/24/17 05:40 Ovalocytes Not Reportable 06/24/17 05:40 Helmet Cells Not Reportable 06/24/17 05:40 Cornelius-Nickerson Bodies Not Reportable 06/24/17 05:40 [place] Rings Not Reportable 06/24/17 05:40 F[place]ar Cells Not Reportable 06/24/17 05:40 Bite Cells Not Reportable 06/24/17 05:40 Crenated Cell Not Reportable 06/24/17 05:40 Elliptocytes Not Reportable 06/24/17 05:40 Acanthocytes (Spur) Not Reportable 06/24/17 05:40 Rouleaux Not Reportable 06/24/17 05:40 Hemoglobin C Crystals Not Reportable 06/24/17 05:40 Schistocytes Not Reportable 06/24/17 05:40 Malaria parasites Not Reportable 06/24/17 05:40 Remberto Bodies Not Reportable 06/24/17 05:40 Hem Pathologist Commnt No 06/24/17 05:40 PT 16.9 Sec. (12.2-14.9) H 06/15/17 20:21 INR 1.31 (0.87-1.13) H 06/15/17 20:21 APTT 35.3 Sec. (24.2-36.6) 06/15/17 20:21 D-Dimer 985.05 ng/mlDDU (0-234) H 06/15/17 20:21 POC ABG pH 7.391 (7.35-7.45) 06/21/17 13:29 POC ABG pCO2 44.0 (35-45) 06/21/17 13:29 POC ABG pO2 50 (80-105) L 06/21/17 13:29 POC ABG HCO3 26.7 06/21/17 13:29 POC ABG Total CO2 28 06/21/17 13:29 POC ABG O2 Sat 84 06/21/17 13:29 POC ABG Base Excess 2 06/21/17 13:29 VBG pH 7.261 (7.320-7.420) L 06/15/17 19:00 FiO2 40 % 06/21/17 13:29 Sodium 138 mmol/L (137-145) 06/24/17 05:40 Potassium 4.2 mmol/L (3.6-5.0) 06/24/17 05:40 Chloride 97.4 mmol/L (98-107) L 06/24/17 05:40 Carbon Dioxide 23 mmol/L (22-30) 06/24/17 05:40 Anion Gap 22 mmol/L 06/24/17 05:40 BUN 54 mg/dL (7-17) H 06/24/17 05:40 Creatinine 4.9 mg/dL (0.7-1.2) H 06/24/17 05:40 Estimated GFR 10 ml/min 06/24/17 05:40 BUN/Creatinine Ratio 11 % 06/24/17 05:40 Glucose 175 mg/dL (65-100) H 06/24/17 05:40 POC Glucose 186 (70-105) H 06/25/17 16:36 Hemoglobin A1c 11.5 % (4-6) H 06/17/17 03:19 Lactic Acid 1.50 mmol/L (0.7-2.0) 06/17/17 15:12 Calcium 8.4 mg/dL (8.4-10.2) 06/24/17 05:40 Magnesium 1.70 mg/dL (1.7-2.3) 06/20/17 06:00 Total Bilirubin 1.00 mg/dL (0.1-1.2) 06/19/17 04:50 Direct Bilirubin 0.3 mg/dL (0-0.2) H 06/18/17 05:00 Indirect Bilirubin 0.3 mg/dL 06/18/17 05:00 AST 51 units/L (5-40) H 06/19/17 04:50 ALT 95 units/L (7-56) H 06/19/17 04:50 Alkaline Phosphatase 236 units/L (35-129) H 06/19/17 04:50 Total Creatine Kinase 124 units/L (30-135) 06/16/17 10:25 CK-MB (CK-2) 1.9 ng/mL (0.0-4.0) 06/16/17 10:25 CK-MB (CK-2) Rel Index 1.5 (0-4) 06/16/17 10:25 Troponin T < 0.010 ng/mL (0.00-0.029) 06/16/17 10:25 C-Reactive Protein 2.50 mg/dL (0.00-1.30) H 06/18/17 13:57 NT-Pro-B Natriuret Pep 7290 pg/mL (0-900) H 06/15/17 20:21 Total Protein 6.3 g/dL (6.3-8.2) 06/19/17 04:50 Albumin 3.3 g/dL (3.9-5) L 06/19/17 04:50 Albumin/Globulin Ratio 1.1 % 06/19/17 04:50 TSH 0.415 mlU/mL (0.270-4.200) 06/17/17 15:12 Urine Color [place] (Yellow) 06/18/17 00:25 Urine Turbidity Slightly cloudy (Clear) 06/18/17 00:25 Urine pH 5.0 (5.0-7.0) 06/18/17 00:25 Ur Specific [place] 1.041 (1.003-1.030) H 06/18/17 00:25 Urine Protein 100 mg/dl mg/dL (Negative) 06/18/17 00:25 Urine Glucose (UA) 50 mg/dL (Negative) 06/18/17 00:25 Urine Ketones Neg mg/dL (Negative) 06/18/17 00:25 Urine Blood Sm (Negative) 06/18/17 00:25 Urine Nitrite Neg (Negative) 06/18/17 00:25 Urine Bilirubin Neg (Negative) 06/18/17 00:25 Urine Ictotest Negative (Negative) 06/15/17 Unknown Urine Urobilinogen < 2.0 mg/dL (<2.0) 06/18/17 00:25 Ur Leukocyte Esterase Mod (Negative) 06/18/17 00:25 Urine WBC (Auto) 67.0 /HPF (0.0-6.0) H 06/18/17 00:25 Urine RBC (Auto) 25.0 /HPF (0.0-6.0) 06/18/17 00:25 U Epithel Cells (Auto) 24.0 /HPF (0-13.0) H 06/18/17 00:25 Urine Bacteria (Auto) 1+ /HPF (Negative) 06/18/17 00:25 Urine WBC Clumps 2+ /HPF 06/18/17 00:25 Amorphous Crystals 2+ 06/18/17 00:25 Hyaline Casts 3 /LPF 06/18/17 00:25 Urine Mucus Few /HPF 06/18/17 00:25 Rheumatoid Factor < 10 IU/ml (0-13) 06/18/17 14:51 HIV 1&2 Antibody Rapid Non react (Non React) 06/18/17 14:51 HIV P24 Antigen Non react (Non React) 06/18/17 14:51
[2017-06-25] MEDS: NEURONTIN PO SCH (21:52)
[2017-06-26 04:18] LABS: Hematocrit 32.6 % (30.3-42.9); Hemoglobin 10.3 gm/dl (10.1-14.3); Mean Corpuscular HGB Conc 32 % (30-34); Mean Corpuscular Hemoglobin 31 pg (28-32); Mean Corpuscular Volume 98 fl (79-97); Platelet Count 266 K/mm3 (140-440); Red Blood Count 3.32 M/mm3 (3.65-5.03); Red Cell Distribution Width 18.1 % (13.2-15.2); White Blood Count 8.4 K/mm3 (4.5-11.0)
[2017-06-26 04:25] LABS: Calcium 7.7 mg/dL (8.4-10.2); Chloride 100.5 mmol/L (98-107)
[2017-06-26 05:15] LABS: Basophils % (Manual) 0 % (0.0-1.8); Blastocytes % (Manual) 0 %
[2017-06-26 05:16] LABS: Anisocytosis 1+; Diff Status Complete; Macrocytosis Few; Platelet Estimate Consistent w Auto; Polychromasia Few
[2017-06-26] MEDS: PROAMATINE PO SCH ×3 (05:24→23:03)
[2017-06-26] MEDS: DUONEB *Not for PRN Use IH SCH ×3 (08:02→21:44)
[2017-06-26] MEDS: NOVOLOG SUB-Q SCH ×3 (08:18→16:56)
[2017-06-26] MEDS: LOVENOX SUB-Q SCH (10:16)
[2017-06-26] MEDS: PROTONIX PO SCH (10:16)
--- NOTE | 2017-06-26 10:59 | Progress Note ---
Assessment and Plan 76 y/o female with known renal failure, now admitted to ICU with shock, etiology unknown, RV failure of unknown etiology and acute respiratory failure with pulmonary hypertension 1. Continue Midodrine 2. Will encourage patient to eat 3. Bipap PRN 4. HD per renal MWF 5. Overall prognosis is guarded 6. Hemodynamically stable now, will transfer out of ICU. Subjective Date of service: 06/26/17 Principal diagnosis: sepsis, ESRD Interval history: No acute events over night. Did not require any further vasopressor therapy. Tolerating more PO and more alert. Stable on 3 liters NC. Objective Vital Signs - 12hr 06/25/17 06/25/17 06/26/17 23:01 23:31 00:00 Temperature 98.7 F Pulse Rate 91 H 79 Pulse Rate [ Anterior Bilateral Throughout] Respiratory 18 17 Rate Respiratory Rate [Anterior Bilateral Throughout] Blood Pressure 133/57 140/61 O2 Sat by Pulse 97 97 97 Oximetry 06/26/17 06/26/17 06/26/17 00:01 00:31 01:01 Temperature Pulse Rate 77 74 73 Pulse Rate [ Anterior Bilateral Throughout] Respiratory 25 H 18 30 H Rate Respiratory Rate [Anterior Bilateral Throughout] Blood Pressure 150/60 131/59 132/57 O2 Sat by Pulse 99 99 98 Oximetry 06/26/17 06/26/17 06/26/17 01:31 02:01 02:31 Temperature Pulse Rate 75 83 77 Pulse Rate [ Anterior Bilateral Throughout] Respiratory 15 26 H 16 Rate Respiratory Rate [Anterior Bilateral Throughout] Blood Pressure 140/57 144/59 133/57 O2 Sat by Pulse 97 97 97 Oximetry 06/26/17 06/26/17 06/26/17 03:01 03:31 04:00 Temperature 98.8 F Pulse Rate 74 82 Pulse Rate [ Anterior Bilateral Throughout] Respiratory 14 31 H Rate Respiratory Rate [Anterior Bilateral Throughout] Blood Pressure 118/48 118/48 O2 Sat by Pulse 96 95 97 Oximetry 06/26/17 06/26/17 06/26/17 04:01 04:31 05:01 Temperature Pulse Rate 83 88 80 Pulse Rate [ Anterior Bilateral Throughout] Respiratory 19 17 16 Rate Respiratory Rate [Anterior Bilateral Throughout] Blood Pressure 135/61 135/60 132/56 O2 Sat by Pulse 98 98 98 Oximetry 06/26/17 06/26/17 06/26/17 05:31 06:01 07:01 Temperature Pulse Rate 92 H 82 80 Pulse Rate [ Anterior Bilateral Throughout] Respiratory 17 16 16 Rate Respiratory Rate [Anterior Bilateral Throughout] Blood Pressure 123/56 119/65 123/60 O2 Sat by Pulse 95 98 100 Oximetry 06/26/17 06/26/17 06/26/17 07:31 08:00 08:01 Temperature 98 F Pulse Rate 76 77 Pulse Rate [ Anterior Bilateral Throughout] Respiratory 17 16 Rate Respiratory Rate [Anterior Bilateral Throughout] Blood Pressure 146/57 134/55 O2 Sat by Pulse 97 98 Oximetry 06/26/17 06/26/17 06/26/17 08:02 08:15 08:31 Temperature Pulse Rate Pulse Rate [ 79 80 Anterior Bilateral Throughout] Respiratory Rate Respiratory 16 16 Rate [Anterior Bilateral Throughout] Blood Pressure 138/56 O2 Sat by Pulse 95 Oximetry 06/26/17 06/26/17 06/26/17 09:01 09:31 10:01 Temperature Pulse Rate 84 85 98 H Pulse Rate [ Anterior Bilateral Throughout] Respiratory 17 19 20 Rate Respiratory Rate [Anterior Bilateral Throughout] Blood Pressure 134/97 126/52 132/65 O2 Sat by Pulse 98 98 99 Oximetry Constitutional: no acute distress, other (awake) Eyes: non-icteric ENT: oropharynx moist Neck: supple Effort: normal Ascultation: Bilateral: clear, wheezes (faint expiratory bilaterally) Cardiovascular: regular rate and rhythm (no mrg; rhythm appears to be NSR with PACs) Gastrointestinal: normoactive bowel sounds, soft, non-tender, non-distended Integumentary: normal Extremities: no cyanosis, no edema, pink and warm Neurologic: normal mental status (except confusiong), non-focal exam (moves all extremities), pupils equal and round, CN II-XII normal Psychiatric: mood appropriate, affect normal CBC and BMP: 06/26/17 03:27 06/26/17 03:27 ABG, PT/INR, D-dimer: ABG POC ABG pH 7.391 (7.35-7.45) 06/21/17 13:29 POC ABG pCO2 44.0 (35-45) 06/21/17 13:29 POC ABG pO2 50 (80-105) L 06/21/17 13:29 POC ABG HCO3 26.7 06/21/17 13:29 POC ABG Total CO2 28 06/21/17 13:29 POC ABG O2 Sat 84 06/21/17 13:29 PT/INR, D-dimer PT 16.9 Sec. (12.2-14.9) H 06/15/17 20:21 INR 1.31 (0.87-1.13) H 06/15/17 20:21 D-Dimer 985.05 ng/mlDDU (0-234) H 06/15/17 20:21 Abnormal lab findings: Abnormal Labs 06/15/17 06/15/17 06/15/17 17:52 19:00 19:00 WBC 3.7 L RBC 3.25 L Hgb Hct MCV RDW 15.8 H Lymph % (Auto) [place] % (Auto) 7.7 H Lymph # 0.9 L [place] # Seg Neutrophils % Seg Neuts % (Manual) Lymphocytes % (Manual) Nucleated RBC % Seg Neutrophils # Seg Neutrophils # Man Lymphocytes # (Manual) PT INR D-Dimer POC ABG pH POC ABG pCO2 POC ABG pO2 VBG pH Sodium Chloride 96.3 L Carbon Dioxide BUN 32 H Creatinine 3.5 H Glucose 428 H POC Glucose > 500 H Hemoglobin A1c Calcium Direct Bilirubin AST ALT Alkaline Phosphatase Total Creatine Kinase C-Reactive Protein NT-Pro-B Natriuret Pep Albumin Ur Specific [place] Urine WBC (Auto) U Epithel Cells (Auto) 06/15/17 06/15/17 06/15/17 19:00 19:35 20:00 WBC RBC Hgb Hct MCV RDW Lymph % (Auto) [place] % (Auto) Lymph # [place] # Seg Neutrophils % Seg Neuts % (Manual) Lymphocytes % (Manual) Nucleated RBC % Seg Neutrophils # Seg Neutrophils # Man Lymphocytes # (Manual) PT INR D-Dimer POC ABG pH POC ABG pCO2 POC ABG pO2 VBG pH 7.261 L Sodium Chloride Carbon Dioxide BUN Creatinine Glucose POC Glucose 371 H 384 H Hemoglobin A1c Calcium Direct Bilirubin AST ALT Alkaline Phosphatase Total Creatine Kinase C-Reactive Protein NT-Pro-B Natriuret Pep Albumin Ur Specific [place] Urine WBC (Auto) U Epithel Cells (Auto) 06/15/17 06/15/17 06/15/17 20:21 20:21 20:21 WBC RBC Hgb Hct MCV RDW Lymph % (Auto) [place] % (Auto) Lymph # [place] # Seg Neutrophils % Seg Neuts % (Manual) Lymphocytes % (Manual) Nucleated RBC % Seg Neutrophils # Seg Neutrophils # Man Lymphocytes # (Manual) PT 16.9 H INR 1.31 H D-Dimer 985.05 H POC ABG pH POC ABG pCO2 POC ABG pO2 VBG pH Sodium Chloride Carbon Dioxide BUN Creatinine Glucose POC Glucose Hemoglobin A1c Calcium Direct Bilirubin AST ALT Alkaline Phosphatase Total Creatine Kinase 147 H C-Reactive Protein NT-Pro-B Natriuret Pep 7290 H Albumin Ur Specific [place] Urine WBC (Auto) U Epithel Cells (Auto) 06/15/17 06/16/17 06/16/17 Unknown 10:13 13:23 WBC RBC Hgb Hct MCV RDW Lymph % (Auto) [place] % (Auto) Lymph # [place] # Seg Neutrophils % Seg Neuts % (Manual) Lymphocytes % (Manual) Nucleated RBC % Seg Neutrophils # Seg Neutrophils # Man Lymphocytes # (Manual) PT INR D-Dimer POC ABG pH POC ABG pCO2 POC ABG pO2 VBG pH Sodium Chloride Carbon Dioxide BUN Creatinine Glucose POC Glucose 290 H 301 H Hemoglobin A1c Calcium Direct Bilirubin AST ALT Alkaline Phosphatase Total Creatine Kinase C-Reactive Protein NT-Pro-B Natriuret Pep Albumin Ur Specific [place] Urine WBC (Auto) 72.0 H U Epithel Cells (Auto) 06/16/17 06/17/17 06/17/17 17:36 00:16 00:35 WBC RBC Hgb Hct MCV RDW Lymph % (Auto) [place] % (Auto) Lymph # [place] # Seg Neutrophils % Seg Neuts % (Manual) Lymphocytes % (Manual) Nucleated RBC % Seg Neutrophils # Seg Neutrophils # Man Lymphocytes # (Manual) PT INR D-Dimer POC ABG pH POC ABG pCO2 POC ABG pO2 VBG pH Sodium Chloride Carbon Dioxide BUN Creatinine Glucose POC Glucose 120 H < 40 L 188 H Hemoglobin A1c Calcium Direct Bilirubin AST ALT Alkaline Phosphatase Total Creatine Kinase C-Reactive Protein NT-Pro-B Natriuret Pep Albumin Ur Specific [place] Urine WBC (Auto) U Epithel Cells (Auto) 06/17/17 06/17/17 06/17/17 03:19 03:19 03:19 WBC RBC 3.31 L Hgb Hct MCV RDW 16.0 H Lymph % (Auto) [place] % (Auto) Lymph # 1.1 L [place] # Seg Neutrophils % 76.0 H Seg Neuts % (Manual) Lymphocytes % (Manual) Nucleated RBC % Seg Neutrophils # Seg Neutrophils # Man Lymphocytes # (Manual) PT INR D-Dimer POC ABG pH POC ABG pCO2 POC ABG pO2 VBG pH Sodium Chloride Carbon Dioxide BUN 45 H Creatinine 4.5 H Glucose 192 H POC Glucose Hemoglobin A1c 11.5 H Calcium 8.1 L Direct Bilirubin AST ALT Alkaline Phosphatase Total Creatine Kinase C-Reactive Protein NT-Pro-B Natriuret Pep Albumin Ur Specific [place] Urine WBC (Auto) U Epithel Cells (Auto) 06/17/17 06/17/17 06/17/17 03:51 06:44 11:15 WBC RBC Hgb Hct MCV RDW Lymph % (Auto) [place] % (Auto) Lymph # [place] # Seg Neutrophils % Seg Neuts % (Manual) Lymphocytes % (Manual) Nucleated RBC % Seg Neutrophils # Seg Neutrophils # Man Lymphocytes # (Manual) PT INR D-Dimer POC ABG pH POC ABG pCO2 POC ABG pO2 VBG pH Sodium Chloride Carbon Dioxide BUN Creatinine Glucose POC Glucose 184 H 326 H 380 H Hemoglobin A1c Calcium Direct Bilirubin AST ALT Alkaline Phosphatase Total Creatine Kinase C-Reactive Protein NT-Pro-B Natriuret Pep Albumin Ur Specific [place] Urine WBC (Auto) U Epithel Cells (Auto) 06/17/17 06/17/17 06/18/17 17:56 23:35 00:02 WBC RBC Hgb Hct MCV RDW Lymph % (Auto) [place] % (Auto) Lymph # [place] # Seg Neutrophils % Seg Neuts % (Manual) Lymphocytes % (Manual) Nucleated RBC % Seg Neutrophils # Seg Neutrophils # Man Lymphocytes # (Manual) PT INR D-Dimer POC ABG pH 7.314 L POC ABG pCO2 48.8 H POC ABG pO2 53 L VBG pH Sodium Chloride Carbon Dioxide BUN Creatinine Glucose POC Glucose 59 L < 40 L Hemoglobin A1c Calcium Direct Bilirubin AST ALT Alkaline Phosphatase Total Creatine Kinase C-Reactive Protein NT-Pro-B Natriuret Pep Albumin Ur Specific [place] Urine WBC (Auto) U Epithel Cells (Auto) 06/18/17 06/18/17 06/18/17 00:08 00:25 00:43 WBC RBC Hgb Hct MCV RDW Lymph % (Auto) [place] % (Auto) Lymph # [place] # Seg Neutrophils % Seg Neuts % (Manual) Lymphocytes % (Manual) Nucleated RBC % Seg Neutrophils # Seg Neutrophils # Man Lymphocytes # (Manual) PT INR D-Dimer POC ABG pH POC ABG pCO2 POC ABG pO2 VBG pH Sodium 136 L Chloride 95.8 L Carbon Dioxide BUN 21 H Creatinine 2.9 H Glucose 131 H POC Glucose 151 H Hemoglobin A1c Calcium 8.2 L Direct Bilirubin AST ALT Alkaline Phosphatase Total Creatine Kinase C-Reactive Protein NT-Pro-B Natriuret Pep Albumin Ur Specific [place] 1.041 H Urine WBC (Auto) 67.0 H U Epithel Cells (Auto) 24.0 H 06/18/17 06/18/17 06/18/17 02:11 05:00 05:00 WBC RBC 3.22 L Hgb Hct MCV RDW 16.2 H Lymph % (Auto) 10.3 L [place] % (Auto) Lymph # 0.7 L [place] # Seg Neutrophils % 81.3 H Seg Neuts % (Manual) Lymphocytes % (Manual) Nucleated RBC % Seg Neutrophils # Seg Neutrophils # Man Lymphocytes # (Manual) PT INR D-Dimer POC ABG pH POC ABG pCO2 POC ABG pO2 VBG pH Sodium Chloride Carbon Dioxide BUN 21 H Creatinine 3.2 H Glucose 159 H POC Glucose 183 H Hemoglobin A1c Calcium 7.9 L Direct Bilirubin 0.3 H AST 73 H ALT 112 H Alkaline Phosphatase 207 H Total Creatine Kinase C-Reactive Protein NT-Pro-B Natriuret Pep Albumin 3.4 L Ur Specific [place] Urine WBC (Auto) U Epithel Cells (Auto) 06/18/17 06/18/17 06/18/17 05:31 09:25 12:30 WBC RBC Hgb Hct MCV RDW Lymph % (Auto) [place] % (Auto) Lymph # [place] # Seg Neutrophils % Seg Neuts % (Manual) Lymphocytes % (Manual) Nucleated RBC % Seg Neutrophils # Seg Neutrophils # Man Lymphocytes # (Manual) PT INR D-Dimer POC ABG pH POC ABG pCO2 POC ABG pO2 72 L VBG pH Sodium Chloride Carbon Dioxide BUN Creatinine Glucose POC Glucose 181 H 286 H Hemoglobin A1c Calcium Direct Bilirubin AST ALT Alkaline Phosphatase Total Creatine Kinase C-Reactive Protein NT-Pro-B Natriuret Pep Albumin Ur Specific [place] Urine WBC (Auto) U Epithel Cells (Auto) 06/18/17 06/18/17 06/18/17 13:57 21:30 22:45 WBC RBC Hgb Hct MCV RDW Lymph % (Auto) [place] % (Auto) Lymph # [place] # Seg Neutrophils % Seg Neuts % (Manual) Lymphocytes % (Manual) Nucleated RBC % Seg Neutrophils # Seg Neutrophils # Man Lymphocytes # (Manual) PT INR D-Dimer POC ABG pH POC ABG pCO2 POC ABG pO2 VBG pH Sodium Chloride Carbon Dioxide BUN Creatinine Glucose POC Glucose 67 L 206 H Hemoglobin A1c Calcium Direct Bilirubin AST ALT Alkaline Phosphatase Total Creatine Kinase C-Reactive Protein 2.50 H NT-Pro-B Natriuret Pep Albumin Ur Specific [place] Urine WBC (Auto) U Epithel Cells (Auto) 06/19/17 06/19/17 06/19/17 00:56 04:50 04:50 WBC RBC 3.02 L Hgb 9.7 L Hct 29.4 L MCV RDW 16.9 H Lymph % (Auto) 5.9 L [place] % (Auto) Lymph # 0.5 L [place] # Seg Neutrophils % 87.3 H Seg Neuts % (Manual) Lymphocytes % (Manual) Nucleated RBC % Seg Neutrophils # Seg Neutrophils # Man Lymphocytes # (Manual) PT INR D-Dimer POC ABG pH POC ABG pCO2 POC ABG pO2 VBG pH Sodium 136 L Chloride 96.2 L Carbon Dioxide BUN 27 H Creatinine 4.3 H Glucose 111 H POC Glucose 150 H Hemoglobin A1c Calcium 8.0 L Direct Bilirubin AST 51 H ALT 95 H Alkaline Phosphatase 236 H Total Creatine Kinase C-Reactive Protein NT-Pro-B Natriuret Pep Albumin 3.3 L Ur Specific [place] Urine WBC (Auto) U Epithel Cells (Auto) 06/19/17 06/19/17 06/19/17 07:47 12:36 15:18 WBC RBC Hgb Hct MCV RDW Lymph % (Auto) [place] % (Auto) Lymph # [place] # Seg Neutrophils % Seg Neuts % (Manual) Lymphocytes % (Manual) Nucleated RBC % Seg Neutrophils # Seg Neutrophils # Man Lymphocytes # (Manual) PT INR D-Dimer POC ABG pH 7.256 L POC ABG pCO2 48.3 H POC ABG pO2 62 L VBG pH Sodium Chloride Carbon Dioxide BUN Creatinine Glucose POC Glucose 108 H 181 H Hemoglobin A1c Calcium Direct Bilirubin AST ALT Alkaline Phosphatase Total Creatine Kinase C-Reactive Protein NT-Pro-B Natriuret Pep Albumin Ur Specific [place] Urine WBC (Auto) U Epithel Cells (Auto) 06/19/17 06/19/17 06/19/17 18:22 18:23 21:40 WBC RBC Hgb Hct MCV RDW Lymph % (Auto) [place] % (Auto) Lymph # [place] # Seg Neutrophils % Seg Neuts % (Manual) Lymphocytes % (Manual) Nucleated RBC % Seg Neutrophils # Seg Neutrophils # Man Lymphocytes # (Manual) PT INR D-Dimer POC ABG pH 7.247 L POC ABG pCO2 50.5 H POC ABG pO2 108 H VBG pH Sodium Chloride Carbon Dioxide BUN Creatinine Glucose POC Glucose 177 H 217 H Hemoglobin A1c Calcium Direct Bilirubin AST ALT Alkaline Phosphatase Total Creatine Kinase C-Reactive Protein NT-Pro-B Natriuret Pep Albumin Ur Specific [place] Urine WBC (Auto) U Epithel Cells (Auto) 06/20/17 06/20/17 06/20/17 00:15 06:00 06:00 WBC 11.7 H RBC 2.78 L Hgb 8.7 L Hct 26.8 L MCV RDW 17.1 H Lymph % (Auto) 5.6 L [place] % (Auto) 7.9 H Lymph # 0.7 L [place] # 0.9 H Seg Neutrophils % 86.1 H Seg Neuts % (Manual) Lymphocytes % (Manual) Nucleated RBC % Seg Neutrophils # 10.0 H Seg Neutrophils # Man Lymphocytes # (Manual) PT INR D-Dimer POC ABG pH POC ABG pCO2 POC ABG pO2 VBG pH Sodium Chloride Carbon Dioxide BUN Creatinine 3.0 H Glucose 167 H POC Glucose 243 H Hemoglobin A1c Calcium 7.7 L Direct Bilirubin AST ALT Alkaline Phosphatase Total Creatine Kinase C-Reactive Protein NT-Pro-B Natriuret Pep Albumin Ur Specific [place] Urine WBC (Auto) U Epithel Cells (Auto) 06/20/17 06/20/17 06/20/17 09:01 10:53 11:10 WBC RBC Hgb Hct MCV RDW Lymph % (Auto) [place] % (Auto) Lymph # [place] # Seg Neutrophils % Seg Neuts % (Manual) Lymphocytes % (Manual) Nucleated RBC % Seg Neutrophils # Seg Neutrophils # Man Lymphocytes # (Manual) PT INR D-Dimer POC ABG pH POC ABG pCO2 POC ABG pO2 57 L VBG pH Sodium Chloride Carbon Dioxide BUN Creatinine Glucose POC Glucose 199 H 205 H Hemoglobin A1c Calcium Direct Bilirubin AST ALT Alkaline Phosphatase Total Creatine Kinase C-Reactive Protein NT-Pro-B Natriuret Pep Albumin Ur Specific [place] Urine WBC (Auto) U Epithel Cells (Auto) 06/20/17 06/20/17 06/20/17 16:16 21:34 22:02 WBC RBC Hgb Hct MCV RDW Lymph % (Auto) [place] % (Auto) Lymph # [place] # Seg Neutrophils % Seg Neuts % (Manual) Lymphocytes % (Manual) Nucleated RBC % Seg Neutrophils # Seg Neutrophils # Man Lymphocytes # (Manual) PT INR D-Dimer POC ABG pH POC ABG pCO2 POC ABG pO2 VBG pH Sodium Chloride Carbon Dioxide BUN Creatinine Glucose POC Glucose 233 H 150 H 158 H Hemoglobin A1c Calcium Direct Bilirubin AST ALT Alkaline Phosphatase Total Creatine Kinase C-Reactive Protein NT-Pro-B Natriuret Pep Albumin Ur Specific [place] Urine WBC (Auto) U Epithel Cells (Auto) 06/21/17 06/21/17 06/21/17 04:30 04:30 07:35 WBC RBC 2.63 L Hgb 8.4 L Hct 25.6 L MCV RDW 17.4 H Lymph % (Auto) 8.6 L [place] % (Auto) Lymph # 0.8 L [place] # Seg Neutrophils % 84.0 H Seg Neuts % (Manual) Lymphocytes % (Manual) Nucleated RBC % Seg Neutrophils # 8.0 H Seg Neutrophils # Man Lymphocytes # (Manual) PT INR D-Dimer POC ABG pH POC ABG pCO2 POC ABG pO2 VBG pH Sodium 136 L Chloride 96.0 L Carbon Dioxide BUN 28 H Creatinine 4.1 H Glucose 160 H POC Glucose 217 H Hemoglobin A1c Calcium 7.9 L Direct Bilirubin AST ALT Alkaline Phosphatase Total Creatine Kinase C-Reactive Protein NT-Pro-B Natriuret Pep Albumin Ur Specific [place] Urine WBC (Auto) U Epithel Cells (Auto) 06/21/17 06/21/17 06/21/17 11:33 13:29 16:47 WBC RBC Hgb Hct MCV RDW Lymph % (Auto) [place] % (Auto) Lymph # [place] # Seg Neutrophils % Seg Neuts % (Manual) Lymphocytes % (Manual) Nucleated RBC % Seg Neutrophils # Seg Neutrophils # Man Lymphocytes # (Manual) PT INR D-Dimer POC ABG pH POC ABG pCO2 POC ABG pO2 50 L VBG pH Sodium Chloride Carbon Dioxide BUN Creatinine Glucose POC Glucose 170 H 216 H Hemoglobin A1c Calcium Direct Bilirubin AST ALT Alkaline Phosphatase Total Creatine Kinase C-Reactive Protein NT-Pro-B Natriuret Pep Albumin Ur Specific [place] Urine WBC (Auto) U Epithel Cells (Auto) 06/21/17 06/22/17 06/22/17 21:06 06:20 06:20 WBC RBC 3.00 L Hgb 9.5 L Hct 29.3 L MCV 98 H RDW 17.5 H Lymph % (Auto) 11.0 L [place] % (Auto) Lymph # 0.8 L [place] # Seg Neutrophils % 86.8 H Seg Neuts % (Manual) Lymphocytes % (Manual) Nucleated RBC % Seg Neutrophils # Seg Neutrophils # Man Lymphocytes # (Manual) PT INR D-Dimer POC ABG pH POC ABG pCO2 POC ABG pO2 VBG pH Sodium Chloride 95.6 L Carbon Dioxide 21 L BUN 19 H Creatinine 2.9 H Glucose 187 H POC Glucose 141 H Hemoglobin A1c Calcium 8.2 L Direct Bilirubin AST ALT Alkaline Phosphatase Total Creatine Kinase C-Reactive Protein NT-Pro-B Natriuret Pep Albumin Ur Specific [place] Urine WBC (Auto) U Epithel Cells (Auto) 06/22/17 06/22/17 06/22/17 06:31 07:53 12:01 WBC RBC Hgb Hct MCV RDW Lymph % (Auto) [place] % (Auto) Lymph # [place] # Seg Neutrophils % Seg Neuts % (Manual) Lymphocytes % (Manual) Nucleated RBC % Seg Neutrophils # Seg Neutrophils # Man Lymphocytes # (Manual) PT INR D-Dimer POC ABG pH POC ABG pCO2 POC ABG pO2 VBG pH Sodium Chloride Carbon Dioxide BUN Creatinine Glucose POC Glucose 197 H 203 H 297 H Hemoglobin A1c Calcium Direct Bilirubin AST ALT Alkaline Phosphatase Total Creatine Kinase C-Reactive Protein NT-Pro-B Natriuret Pep Albumin Ur Specific [place] Urine WBC (Auto) U Epithel Cells (Auto) 06/22/17 06/22/17 06/23/17 16:32 21:29 07:20 WBC RBC 2.93 L Hgb 9.3 L Hct 28.2 L MCV RDW 17.1 H Lymph % (Auto) 7.4 L [place] % (Auto) 8.9 H Lymph # 0.7 L [place] # Seg Neutrophils % 83.4 H Seg Neuts % (Manual) Lymphocytes % (Manual) Nucleated RBC % Seg Neutrophils # Seg Neutrophils # Man Lymphocytes # (Manual) PT INR D-Dimer POC ABG pH POC ABG pCO2 POC ABG pO2 VBG pH Sodium Chloride Carbon Dioxide BUN Creatinine Glucose POC Glucose 370 H 400 H Hemoglobin A1c Calcium Direct Bilirubin AST ALT Alkaline Phosphatase Total Creatine Kinase C-Reactive Protein NT-Pro-B Natriuret Pep Albumin Ur Specific [place] Urine WBC (Auto) U Epithel Cells (Auto) 06/23/17 06/23/17 06/23/17 07:20 07:45 12:22 WBC RBC Hgb Hct MCV RDW Lymph % (Auto) [place] % (Auto) Lymph # [place] # Seg Neutrophils % Seg Neuts % (Manual) Lymphocytes % (Manual) Nucleated RBC % Seg Neutrophils # Seg Neutrophils # Man Lymphocytes # (Manual) PT INR D-Dimer POC ABG pH POC ABG pCO2 POC ABG pO2 VBG pH Sodium Chloride 96.7 L Carbon Dioxide BUN 41 H Creatinine 4.3 H Glucose 281 H POC Glucose 293 H 416 H Hemoglobin A1c Calcium 8.2 L Direct Bilirubin AST ALT Alkaline Phosphatase Total Creatine Kinase C-Reactive Protein NT-Pro-B Natriuret Pep Albumin Ur Specific [place] Urine WBC (Auto) U Epithel Cells (Auto) 06/23/17 06/24/17 06/24/17 21:56 05:40 05:40 WBC 11.9 H RBC 3.26 L Hgb 9.9 L Hct MCV RDW 17.0 H Lymph % (Auto) [place] % (Auto) Lymph # [place] # Seg Neutrophils % Seg Neuts % (Manual) 92.0 H Lymphocytes % (Manual) 5.0 L Nucleated RBC % Seg Neutrophils # Seg Neutrophils # Man 10.9 H Lymphocytes # (Manual) 0.6 L PT INR D-Dimer POC ABG pH POC ABG pCO2 POC ABG pO2 VBG pH Sodium Chloride 97.4 L Carbon Dioxide BUN 54 H Creatinine 4.9 H Glucose 175 H POC Glucose 310 H Hemoglobin A1c Calcium Direct Bilirubin AST ALT Alkaline Phosphatase Total Creatine Kinase C-Reactive Protein NT-Pro-B Natriuret Pep Albumin Ur Specific [place] Urine WBC (Auto) U Epithel Cells (Auto) 06/24/17 06/24/17 06/24/17 07:27 12:23 16:43 WBC RBC Hgb Hct MCV RDW Lymph % (Auto) [place] % (Auto) Lymph # [place] # Seg Neutrophils % Seg Neuts % (Manual) Lymphocytes % (Manual) Nucleated RBC % Seg Neutrophils # Seg Neutrophils # Man Lymphocytes # (Manual) PT INR D-Dimer POC ABG pH POC ABG pCO2 POC ABG pO2 VBG pH Sodium Chloride Carbon Dioxide BUN Creatinine Glucose POC Glucose 181 H 188 H 301 H Hemoglobin A1c Calcium Direct Bilirubin AST ALT Alkaline Phosphatase Total Creatine Kinase C-Reactive Protein NT-Pro-B Natriuret Pep Albumin Ur Specific [place] Urine WBC (Auto) U Epithel Cells (Auto) 06/24/17 06/25/17 06/25/17 21:33 07:50 11:55 WBC RBC Hgb Hct MCV RDW Lymph % (Auto) [place] % (Auto) Lymph # [place] # Seg Neutrophils % Seg Neuts % (Manual) Lymphocytes % (Manual) Nucleated RBC % Seg Neutrophils # Seg Neutrophils # Man Lymphocytes # (Manual) PT INR D-Dimer POC ABG pH POC ABG pCO2 POC ABG pO2 VBG pH Sodium Chloride Carbon Dioxide BUN Creatinine Glucose POC Glucose 204 H 132 H 261 H Hemoglobin A1c Calcium Direct Bilirubin AST ALT Alkaline Phosphatase Total Creatine Kinase C-Reactive Protein NT-Pro-B Natriuret Pep Albumin Ur Specific [place] Urine WBC (Auto) U Epithel Cells (Auto) 06/25/17 06/25/17 06/26/17 16:36 21:44 03:27 WBC RBC 3.32 L Hgb Hct MCV 98 H RDW 18.1 H Lymph % (Auto) [place] % (Auto) Lymph # [place] # Seg Neutrophils % Seg Neuts % (Manual) 86.0 H Lymphocytes % (Manual) 7.0 L Nucleated RBC % 2.0 H Seg Neutrophils # Seg Neutrophils # Man Lymphocytes # (Manual) 0.6 L PT INR D-Dimer POC ABG pH POC ABG pCO2 POC ABG pO2 VBG pH Sodium Chloride Carbon Dioxide BUN Creatinine Glucose POC Glucose 186 H 202 H Hemoglobin A1c Calcium Direct Bilirubin AST ALT Alkaline Phosphatase Total Creatine Kinase C-Reactive Protein NT-Pro-B Natriuret Pep Albumin Ur Specific [place] Urine WBC (Auto) U Epithel Cells (Auto) 06/26/17 06/26/17 03:27 07:31 WBC RBC Hgb Hct MCV RDW Lymph % (Auto) [place] % (Auto) Lymph # [place] # Seg Neutrophils % Seg Neuts % (Manual) Lymphocytes % (Manual) Nucleated RBC % Seg Neutrophils # Seg Neutrophils # Man Lymphocytes # (Manual) PT INR D-Dimer POC ABG pH POC ABG pCO2 POC ABG pO2 VBG pH Sodium Chloride Carbon Dioxide BUN 37 H Creatinine 3.2 H Glucose 127 H POC Glucose 151 H Hemoglobin A1c Calcium 7.7 L Direct Bilirubin AST ALT Alkaline Phosphatase Total Creatine Kinase C-Reactive Protein NT-Pro-B Natriuret Pep Albumin Ur Specific [place] Urine WBC (Auto) U Epithel Cells (Auto)
[2017-06-26] MEDS: HEPARIN IV PRN (15:19)
--- NOTE | 2017-06-26 16:35 | Progress Note ---
Assessment and Plan Assessment and plan: Sepsis with septic shock secondary to UTI - Was treated with IV Zosyn and currently off IV antibiotics - Blood pressure is holding and patient is off pressors - We'll increase midodrine to 10 mg by mouth 3 times a day End-stage renal disease on hemodialysis - Nephrology is following Acute on chronic respiratory failure - Patient is on intranasal oxygen currently DVT prophylaxis Disposition - Transfer to the floor. History Interval history: Patient was seen and evaluated this morning, I have discussed the management plan with the patient. Hospitalist Physical - Physical exam Narrative exam: Not in cardiopulmonary distress. On intranasal oxygen. The patient appeared well nourished and normally developed. Vital signs as documented. Head exam is unremarkable. No scleral icterus . Neck is without jugular venous distension, thyromegaly, or carotid bruits. Lungs are clear to auscultation. Cardiac exam reveals regular rate and Rhythm. First and second heart sounds normal. No murmurs, rubs or gallops. Abdominal exam reveals normal bowel sounds, no masses, no organomegaly and no aortic enlargement. Extremities are nonedematous and both femoral and pedal pulses are normal. 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 No focal weakness. - Constitutional Vitals: Temp Pulse Resp BP Pulse Ox 97.7 F 96 H 20 128/48 100 06/26/17 16:02 06/26/17 16:02 06/26/17 16:02 06/26/17 16:02 06/26/17 16:02 General appearance: Present: no acute distress, well-nourished, other (lethergic ) Results - Labs CBC & Chem 7: 06/26/17 03:27 06/26/17 03:27 Labs: Laboratory Last Values WBC 8.4 K/mm3 (4.5-11.0) 06/26/17 03:27 RBC 3.32 M/mm3 (3.65-5.03) L 06/26/17 03:27 Hgb 10.3 gm/dl (10.1-14.3) 06/26/17 03:27 Hct 32.6 % (30.3-42.9) 06/26/17 03:27 MCV 98 fl (79-97) H 06/26/17 03:27 MCH 31 pg (28-32) 06/26/17 03:27 MCHC 32 % (30-34) 06/26/17 03:27 RDW 18.1 % (13.2-15.2) H 06/26/17 03:27 Plt Count 266 K/mm3 (140-440) 06/26/17 03:27 Lymph % (Auto) 7.4 % (13.4-35.0) L 06/23/17 07:20 Holmes % (Auto) 8.9 % (0.0-7.3) H 06/23/17 07:20 Eos % (Auto) 0.0 % (0.0-4.3) 06/23/17 07:20 Baso % (Auto) 0.3 % (0.0-1.8) 06/23/17 07:20 Lymph # 0.7 K/mm3 (1.2-5.4) L 06/23/17 07:20 Holmes # 0.8 K/mm3 (0.0-0.8) 06/23/17 07:20 Eos # 0.0 K/mm3 (0.0-0.4) 06/23/17 07:20 Baso # 0.0 K/mm3 (0.0-0.1) 06/23/17 07:20 Add Manual Diff Complete 06/26/17 03:27 Total Counted 100 06/26/17 03:27 Seg Neutrophils % Template Checker 06/24/17 05:40 Seg Neuts % (Manual) 86.0 % (40.0-70.0) H 06/26/17 03:27 Band Neutrophils % 0 % 06/26/17 03:27 Lymphocytes % (Manual) 7.0 % (13.4-35.0) L 06/26/17 03:27 Reactive Lymphs % (Man) 0 % 06/26/17 03:27 Monocytes % (Manual) 5.0 % (0.0-7.3) 06/26/17 03:27 Eosinophils % (Manual) 1.0 % (0.0-4.3) 06/26/17 03:27 Basophils % (Manual) 0 % (0.0-1.8) 06/26/17 03:27 Metamyelocytes % 0 % 06/26/17 03:27 Myelocytes % 1.0 % 06/26/17 03:27 Promyelocytes % 0 % 06/26/17 03:27 Blast Cells % 0 % 06/26/17 03:27 Nucleated RBC % 2.0 % (0.0-0.9) H 06/26/17 03:27 Seg Neutrophils # 7.7 K/mm3 (1.8-7.7) 06/23/17 07:20 Seg Neutrophils # Man 7.2 K/mm3 (1.8-7.7) 06/26/17 03:27 Band Neutrophils # 0.0 K/mm3 06/26/17 03:27 Lymphocytes # (Manual) 0.6 K/mm3 (1.2-5.4) L 06/26/17 03:27 Abs React Lymphs (Man) 0.0 K/mm3 06/26/17 03:27 Monocytes # (Manual) 0.4 K/mm3 (0.0-0.8) 06/26/17 03:27 Eosinophils # (Manual) 0.1 K/mm3 (0.0-0.4) 06/26/17 03:27 Basophils # (Manual) 0.0 K/mm3 (0.0-0.1) 06/26/17 03:27 Metamyelocytes # 0.0 K/mm3 06/26/17 03:27 Myelocytes # 0.1 K/mm3 06/26/17 03:27 Promyelocytes # 0.0 K/mm3 06/26/17 03:27 Blast Cells # 0.0 K/mm3 06/26/17 03:27 WBC Morphology Not Reportable 06/26/17 03:27 Hypersegmented Neuts Not Reportable 06/26/17 03:27 Hyposegmented Neuts Not Reportable 06/26/17 03:27 Hypogranular Neuts Not Reportable 06/26/17 03:27 Smudge Cells Not Reportable 06/26/17 03:27 Toxic Granulation Not Reportable 06/26/17 03:27 Toxic Vacuolation Not Reportable 06/26/17 03:27 Dohle Bodies Not Reportable 06/26/17 03:27 Pelger-Huet Anomaly Not Reportable 06/26/17 03:27 Anastasiya Rods Not Reportable 06/26/17 03:27 Platelet Estimate Consistent w auto 06/26/17 03:27 Clumped Platelets Not Reportable 06/26/17 03:27 Plt Clumps, EDTA Not Reportable 06/26/17 03:27 Large Platelets Not Reportable 06/26/17 03:27 Giant Platelets Not Reportable 06/26/17 03:27 Platelet Satelliting Not Reportable 06/26/17 03:27 Plt Morphology Comment Not Reportable 06/26/17 03:27 RBC Morphology Not Reportable 06/26/17 03:27 Dimorphic RBCs Not Reportable 06/26/17 03:27 Polychromasia Few 06/26/17 03:27 Hypochromasia Not Reportable 06/26/17 03:27 Poikilocytosis Not Reportable 06/26/17 03:27 Anisocytosis 1+ 06/26/17 03:27 Microcytosis Not Reportable 06/26/17 03:27 Macrocytosis Few 06/26/17 03:27 Spherocytes Not Reportable 06/26/17 03:27 Pappenheimer Bodies Not Reportable 06/26/17 03:27 Sickle Cells Not Reportable 06/26/17 03:27 Target Cells Not Reportable 06/26/17 03:27 Tear Drop Cells Not Reportable 06/26/17 03:27 Ovalocytes Not Reportable 06/26/17 03:27 Helmet Cells Not Reportable 06/26/17 03:27 Cornelius-[place] Bodies Not Reportable 06/26/17 03:27 [place] Rings Not Reportable 06/26/17 03:27 [place] Cells Not Reportable 06/26/17 03:27 Bite Cells Not Reportable 06/26/17 03:27 Crenated Cell Not Reportable 06/26/17 03:27 Elliptocytes Not Reportable 06/26/17 03:27 Acanthocytes (Spur) Not Reportable 06/26/17 03:27 Rouleaux Not Reportable 06/26/17 03:27 Hemoglobin C Crystals Not Reportable 06/26/17 03:27 Schistocytes Not Reportable 06/26/17 03:27 Malaria parasites Not Reportable 06/26/17 03:27 Remberto Bodies Not Reportable 06/26/17 03:27 Hem Pathologist Commnt No 06/26/17 03:27 PT 16.9 Sec. (12.2-14.9) H 06/15/17 20:21 INR 1.31 (0.87-1.13) H 06/15/17 20:21 APTT 35.3 Sec. (24.2-36.6) 06/15/17 20:21 D-Dimer 985.05 ng/mlDDU (0-234) H 06/15/17 20:21 POC ABG pH 7.391 (7.35-7.45) 06/21/17 13:29 POC ABG pCO2 44.0 (35-45) 06/21/17 13:29 POC ABG pO2 50 (80-105) L 06/21/17 13:29 POC ABG HCO3 26.7 06/21/17 13:29 POC ABG Total CO2 28 06/21/17 13:29 POC ABG O2 Sat 84 06/21/17 13:29 POC ABG Base Excess 2 06/21/17 13:29 VBG pH 7.261 (7.320-7.420) L 06/15/17 19:00 FiO2 40 % 06/21/17 13:29 Sodium 138 mmol/L (137-145) 06/26/17 03:27 Potassium 4.0 mmol/L (3.6-5.0) 06/26/17 03:27 Chloride 100.5 mmol/L (98-107) 06/26/17 03:27 Carbon Dioxide 27 mmol/L (22-30) 06/26/17 03:27 Anion Gap 15 mmol/L 06/26/17 03:27 BUN 37 mg/dL (7-17) H 06/26/17 03:27 Creatinine 3.2 mg/dL (0.7-1.2) H 06/26/17 03:27 Estimated GFR 17 ml/min 06/26/17 03:27 BUN/Creatinine Ratio 12 % 06/26/17 03:27 Glucose 127 mg/dL (65-100) H 06/26/17 03:27 POC Glucose 233 (70-105) H 06/26/17 12:03 Hemoglobin A1c 11.5 % (4-6) H 06/17/17 03:19 Lactic Acid 1.50 mmol/L (0.7-2.0) 06/17/17 15:12 Calcium 7.7 mg/dL (8.4-10.2) L 06/26/17 03:27 Magnesium 1.70 mg/dL (1.7-2.3) 06/20/17 06:00 Total Bilirubin 1.00 mg/dL (0.1-1.2) 06/19/17 04:50 Direct Bilirubin 0.3 mg/dL (0-0.2) H 06/18/17 05:00 Indirect Bilirubin 0.3 mg/dL 06/18/17 05:00 AST 51 units/L (5-40) H 06/19/17 04:50 ALT 95 units/L (7-56) H 06/19/17 04:50 Alkaline Phosphatase 236 units/L (35-129) H 06/19/17 04:50 Total Creatine Kinase 124 units/L (30-135) 06/16/17 10:25 CK-MB (CK-2) 1.9 ng/mL (0.0-4.0) 06/16/17 10:25 CK-MB (CK-2) Rel Index 1.5 (0-4) 06/16/17 10:25 Troponin T < 0.010 ng/mL (0.00-0.029) 06/16/17 10:25 C-Reactive Protein 2.50 mg/dL (0.00-1.30) H 06/18/17 13:57 NT-Pro-B Natriuret Pep 7290 pg/mL (0-900) H 06/15/17 20:21 Total Protein 6.3 g/dL (6.3-8.2) 06/19/17 04:50 Albumin 3.3 g/dL (3.9-5) L 06/19/17 04:50 Albumin/Globulin Ratio 1.1 % 06/19/17 04:50 TSH 0.415 mlU/mL (0.270-4.200) 06/17/17 15:12 Urine Color [place] (Yellow) 06/18/17 00:25 Urine Turbidity Slightly cloudy (Clear) 06/18/17 00:25 Urine pH 5.0 (5.0-7.0) 06/18/17 00:25 Ur Specific [place] 1.041 (1.003-1.030) H 06/18/17 00:25 Urine Protein 100 mg/dl mg/dL (Negative) 06/18/17 00:25 Urine Glucose (UA) 50 mg/dL (Negative) 06/18/17 00:25 Urine Ketones Neg mg/dL (Negative) 06/18/17 00:25 Urine Blood Sm (Negative) 06/18/17 00:25 Urine Nitrite Neg (Negative) 06/18/17 00:25 Urine Bilirubin Neg (Negative) 06/18/17 00:25 Urine Ictotest Negative (Negative) 06/15/17 Unknown Urine Urobilinogen < 2.0 mg/dL (<2.0) 06/18/17 00:25 Ur Leukocyte Esterase Mod (Negative) 06/18/17 00:25 Urine WBC (Auto) 67.0 /HPF (0.0-6.0) H 06/18/17 00:25 Urine RBC (Auto) 25.0 /HPF (0.0-6.0) 06/18/17 00:25 U Epithel Cells (Auto) 24.0 /HPF (0-13.0) H 06/18/17 00:25 Urine Bacteria (Auto) 1+ /HPF (Negative) 06/18/17 00:25 Urine WBC Clumps 2+ /HPF 06/18/17 00:25 Amorphous Crystals 2+ 06/18/17 00:25 Hyaline Casts 3 /LPF 06/18/17 00:25 Urine Mucus Few /HPF 06/18/17 00:25 Rheumatoid Factor < 10 IU/ml (0-13) 06/18/17 14:51 HIV 1&2 Antibody Rapid Non react (Non React) 06/18/17 14:51 HIV P24 Antigen Non react (Non React) 06/18/17 14:51
--- NOTE | 2017-06-26 16:47 | Progress Note ---
Assessment and Plan (1) Altered mental status Current Visit: Yes Status: Acute Qualifiers: Altered mental status type: transient alteration of awareness Qualified Code(s): R40.4 - Transient alteration of awareness Plan to address problem: Improved, back to baseline (2) ESRD (end stage renal disease) Current Visit: No Status: Acute Plan to address problem: HD today. (3) History of nephrectomy, unilateral Current Visit: No Status: Acute Stable. (4) Hypotension Current Visit: Yes Status: Acute Plan to address problem: Off Levophed. Continue Midodrine OK for transfer out of ICU after dialysis (5) Anemia Current Visit: Yes Status: chronic Plan to address problem: JAN on dialysis Subjective Date of service: 06/26/17 Principal diagnosis: sepsis, ESRD Interval history: Feels better, more alert, off levo , Pt seen and examined while on HD Objective - Exam Narrative Exam: Elderly -[place] female lying in bed in no acute distress HEENT: NCAT, pink oral mucous membrane Neck: Supple, no venous distention CVS: S1S2 RRR with no murmur, rub or gallop Chest: decreased BS b/L, no wheezing Abdomen: Protuberant, soft, nontender, no organomegaly, bowel sounds are present Extremities: No edema, no clubbing Neuro: AO x3, no focal deficits - Vital Signs Vital signs: Vital Signs - 12hr 06/26/17 06/26/17 06/26/17 05:01 05:31 06:01 Temperature Pulse Rate 80 92 H 82 Pulse Rate [ Anterior Bilateral Throughout] Pulse Rate [ Posterior Bilateral Bases ] Respiratory 16 17 16 Rate Respiratory Rate [Anterior Bilateral Throughout] Respiratory Rate [Posterior Bilateral Bases] Blood Pressure 132/56 123/56 119/65 Blood Pressure [Left] O2 Sat by Pulse 98 95 98 Oximetry 06/26/17 06/26/17 06/26/17 07:01 07:31 08:00 Temperature 98 F Pulse Rate 80 76 Pulse Rate [ Anterior Bilateral Throughout] Pulse Rate [ Posterior Bilateral Bases ] Respiratory 16 17 Rate Respiratory Rate [Anterior Bilateral Throughout] Respiratory Rate [Posterior Bilateral Bases] Blood Pressure 123/60 146/57 Blood Pressure [Left] O2 Sat by Pulse 100 97 Oximetry 06/26/17 06/26/17 06/26/17 08:01 08:02 08:15 Temperature Pulse Rate 77 Pulse Rate [ 79 80 Anterior Bilateral Throughout] Pulse Rate [ Posterior Bilateral Bases ] Respiratory 16 Rate Respiratory 16 16 Rate [Anterior Bilateral Throughout] Respiratory Rate [Posterior Bilateral Bases] Blood Pressure 134/55 Blood Pressure [Left] O2 Sat by Pulse 98 Oximetry 06/26/17 06/26/17 06/26/17 08:31 09:01 09:31 Temperature Pulse Rate 84 85 Pulse Rate [ Anterior Bilateral Throughout] Pulse Rate [ Posterior Bilateral Bases ] Respiratory 17 19 Rate Respiratory Rate [Anterior Bilateral Throughout] Respiratory Rate [Posterior Bilateral Bases] Blood Pressure 138/56 134/97 126/52 Blood Pressure [Left] O2 Sat by Pulse 95 98 98 Oximetry 06/26/17 06/26/17 06/26/17 10:01 10:31 11:01 Temperature Pulse Rate 98 H 85 91 H Pulse Rate [ Anterior Bilateral Throughout] Pulse Rate [ Posterior Bilateral Bases ] Respiratory 20 17 20 Rate Respiratory Rate [Anterior Bilateral Throughout] Respiratory Rate [Posterior Bilateral Bases] Blood Pressure 132/65 134/57 133/63 Blood Pressure [Left] O2 Sat by Pulse 99 98 98 Oximetry 06/26/17 06/26/17 06/26/17 11:15 11:30 11:31 Temperature Pulse Rate 86 84 91 H Pulse Rate [ Anterior Bilateral Throughout] Pulse Rate [ Posterior Bilateral Bases ] Respiratory 15 Rate Respiratory Rate [Anterior Bilateral Throughout] Respiratory Rate [Posterior Bilateral Bases] Blood Pressure 103/32 137/55 103/32 Blood Pressure [Left] O2 Sat by Pulse 100 Oximetry 06/26/17 06/26/17 06/26/17 11:39 11:45 12:00 Temperature 98.0 F 97.6 F Pulse Rate 89 85 80 Pulse Rate [ Anterior Bilateral Throughout] Pulse Rate [ Posterior Bilateral Bases ] Respiratory 18 Rate Respiratory Rate [Anterior Bilateral Throughout] Respiratory Rate [Posterior Bilateral Bases] Blood Pressure 103/32 128/64 138/64 Blood Pressure [Left] O2 Sat by Pulse Oximetry 06/26/17 06/26/17 06/26/17 12:01 12:15 12:30 Temperature Pulse Rate 80 96 H 83 Pulse Rate [ Anterior Bilateral Throughout] Pulse Rate [ Posterior Bilateral Bases ] Respiratory 16 Rate Respiratory Rate [Anterior Bilateral Throughout] Respiratory Rate [Posterior Bilateral Bases] Blood Pressure 138/64 141/62 130/54 Blood Pressure [Left] O2 Sat by Pulse 98 Oximetry 06/26/17 06/26/17 06/26/17 12:31 12:45 13:00 Temperature Pulse Rate 78 98 H 107 H Pulse Rate [ Anterior Bilateral Throughout] Pulse Rate [ Posterior Bilateral Bases ] Respiratory 15 Rate Respiratory Rate [Anterior Bilateral Throughout] Respiratory Rate [Posterior Bilateral Bases] Blood Pressure 130/54 119/60 108/66 Blood Pressure [Left] O2 Sat by Pulse 97 Oximetry 06/26/17 06/26/17 06/26/17 13:01 13:15 13:30 Temperature Pulse Rate 94 H 100 H 85 Pulse Rate [ Anterior Bilateral Throughout] Pulse Rate [ Posterior Bilateral Bases ] Respiratory 17 Rate Respiratory Rate [Anterior Bilateral Throughout] Respiratory Rate [Posterior Bilateral Bases] Blood Pressure 108/66 129/59 117/55 Blood Pressure [Left] O2 Sat by Pulse 98 Oximetry 06/26/17 06/26/17 06/26/17 13:31 14:00 14:01 Temperature Pulse Rate 97 H 91 H 88 Pulse Rate [ Anterior Bilateral Throughout] Pulse Rate [ Posterior Bilateral Bases ] Respiratory 14 17 Rate Respiratory Rate [Anterior Bilateral Throughout] Respiratory Rate [Posterior Bilateral Bases] Blood Pressure 129/59 114/54 114/54 Blood Pressure [Left] O2 Sat by Pulse 100 98 Oximetry 06/26/17 06/26/17 06/26/17 14:08 14:15 14:19 Temperature Pulse Rate 90 Pulse Rate [ Anterior Bilateral Throughout] Pulse Rate [ 92 H 94 H Posterior Bilateral Bases ] Respiratory Rate Respiratory Rate [Anterior Bilateral Throughout] Respiratory 18 16 Rate [Posterior Bilateral Bases] Blood Pressure 124/58 Blood Pressure [Left] O2 Sat by Pulse Oximetry 06/26/17 06/26/17 06/26/17 14:30 14:31 14:45 Temperature Pulse Rate 84 76 80 Pulse Rate [ Anterior Bilateral Throughout] Pulse Rate [ Posterior Bilateral Bases ] Respiratory 15 Rate Respiratory Rate [Anterior Bilateral Throughout] Respiratory Rate [Posterior Bilateral Bases] Blood Pressure 138/62 138/62 130/56 Blood Pressure [Left] O2 Sat by Pulse 100 Oximetry 06/26/17 06/26/17 06/26/17 15:00 15:01 15:15 Temperature 98.4 F Pulse Rate 94 H 91 H 94 H Pulse Rate [ Anterior Bilateral Throughout] Pulse Rate [ Posterior Bilateral Bases ] Respiratory 15 14 Rate Respiratory Rate [Anterior Bilateral Throughout] Respiratory Rate [Posterior Bilateral Bases] Blood Pressure 122/61 122/61 135/57 Blood Pressure [Left] O2 Sat by Pulse 98 Oximetry 06/26/17 16:02 Temperature 97.7 F Pulse Rate 96 H Pulse Rate [ Anterior Bilateral Throughout] Pulse Rate [ Posterior Bilateral Bases ] Respiratory 20 Rate Respiratory Rate [Anterior Bilateral Throughout] Respiratory Rate [Posterior Bilateral Bases] Blood Pressure Blood Pressure 128/48 [Left] O2 Sat by Pulse 100 Oximetry - Lab 06/26/17 03:27 06/26/17 03:27 Most recent lab results Calcium 7.7 mg/dL (8.4-10.2) L 06/26/17 03:27 Magnesium 1.70 mg/dL (1.7-2.3) 06/20/17 06:00
[2017-06-26] MEDS: NEURONTIN PO SCH (23:02)
[2017-06-27] MEDS: NOVOLOG SUB-Q SCH ×3 (01:18→11:42)
[2017-06-27 06:34] LABS: Chloride 100.9 mmol/L (98-107); Potassium 3.7 mmol/L (3.6-5.0)
[2017-06-27] MEDS: LOVENOX SUB-Q SCH (09:02)
[2017-06-27] MEDS: PROTONIX PO SCH (09:02)
[2017-06-27] MEDS: PROAMATINE PO SCH (09:09)
[2017-06-27] MEDS: DUONEB *Not for PRN Use IH SCH ×2 (09:12→13:28)
--- NOTE | 2017-06-27 11:09 | Discharge Summary ---
Providers - Providers Date of Admission: 06/16/17 03:32 Date of discharge: 06/27/17 Attending physician: BERTRAND SALCEDO MD 06/16/17 03:32 Consult to Physician [CONS] Routine Consulting Provider: JAMILAH BUSCH Reason For Exam: hd Place consult to:: answering service Notified:: yes Phone number called:: [phone] Was contact made?: Yes If yes, spoke with:: Ariela Time called:: 09:00 06/16/17 03:59 Consult to Physician [CONS] Routine Consulting Provider: EVANGELISTA FOREMAN Reason For Exam: cc Place consult to:: Dr. Foreman Notified:: Answering Service Phone number called:: [phone] Was contact made?: No 06/26/17 16:06 Physical Therapy Evaluation and Treat [CONS] Routine Comment: Reason For Exam: weakness, deconditionong Primary care physician: SQUARING MACHINE OPERATOR Hospitalization Reason for admission: Septic shock Condition: Stable Hospital course: 75 year old woman with a history of hypertension, diabetes complicated by neuropathy, peripheral vascular, history of nephrectomy comes to the emergency room with complaints of generalized weakness, urinary frequency, nausea vomiting. Patient was hypotensive in the emergency room with systolic blood pressure of 70s, given IV fluid bolus. Patient is admitted to ICU for management of septic shock, shows treated according to sepsis protocol and patient showed improvement. Patient transferred to the floor and observed for one day, patient was hemodynamically stable. I have offered her to go to SNF but patient declined. Nephrology and skin care technician input was appreciated. Patient discharged home with advice to keep dialysis appointment and see primary care physician. Patient's questions and concerns were addressed at the bedside. Disposition: DC-01 TO HOME OR SELFCARE Time spent for discharge: 31 minutes - Discharge Diagnoses (1) ESRD on hemodialysis Status: Acute (2) Acute UTI Status: Acute (3) Altered mental status Status: Acute Qualifiers: Altered mental status type: transient alteration of awareness Qualified Code(s): R40.4 - Transient alteration of awareness (4) Septic shock Status: Acute Core Measure Documentation - Palliative Care Palliative Care/ Comfort Measures: Not Applicable - Core Measures Any of the following diagnoses?: none Exam - Physical Exam Narrative exam: Not in cardiopulmonary distress. The patient appeared well nourished and normally developed. Vital signs as documented. Head exam is unremarkable. No scleral icterus . Neck is without jugular venous distension, thyromegaly, or carotid bruits. Lungs are clear to auscultation. Cardiac exam reveals regular rate and Rhythm. First and second heart sounds normal. No murmurs, rubs or gallops. Abdominal exam reveals normal bowel sounds, no masses, no organomegaly and no aortic enlargement. Extremities are nonedematous and both femoral and pedal pulses are normal. 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 No focal weakness. - Constitutional Vitals: Temp Pulse Resp BP Pulse Ox 98.9 F 106 H 17 132/50 96 06/27/17 08:27 06/27/17 09:12 06/27/17 09:12 06/27/17 08:27 06/27/17 09:13 Plan Activity: no restrictions Weight Bearing Status: Full Weight Bearing Diet: low cholesterol, diabetic, renal Additional Instructions: please follow at [facility] in 2 weeks. Follow up with: PRIMARY MD KURT [Primary Care Provider] - 7 Days
--- NOTE | 2017-06-27 11:23 | Progress Note ---
Assessment and Plan 76 y/o female with known renal failure, now admitted to ICU with shock, etiology unknown, RV failure of unknown etiology and acute respiratory failure with pulmonary hypertension 1. Weaned to room air and stable. 2. Will sign off Subjective Date of service: 06/27/17 Principal diagnosis: sepsis, ESRD Interval history: Stable transfer out of the ICU. Objective Vital Signs - 12hr 06/27/17 06/27/17 06/27/17 03:24 06:17 08:00 Temperature 97.3 F L 98.6 F Pulse Rate 91 H 98 H Pulse Rate [ 104 H Posterior Bilateral Bases ] Respiratory 18 18 Rate Respiratory 18 Rate [Posterior Bilateral Bases] Blood Pressure 128/51 132/56 O2 Sat by Pulse 93 92 Oximetry 06/27/17 06/27/17 06/27/17 08:27 09:12 09:13 Temperature 98.9 F Pulse Rate 95 H Pulse Rate [ 106 H Posterior Bilateral Bases ] Respiratory 20 Rate Respiratory 17 Rate [Posterior Bilateral Bases] Blood Pressure 132/50 O2 Sat by Pulse 84 96 Oximetry Constitutional: no acute distress, other (awake) Eyes: non-icteric ENT: oropharynx moist Neck: supple Effort: normal Ascultation: Bilateral: clear, wheezes (faint expiratory bilaterally) Cardiovascular: regular rate and rhythm (no mrg; rhythm appears to be NSR with PACs) Gastrointestinal: normoactive bowel sounds, soft, non-tender, non-distended Integumentary: normal Extremities: no cyanosis, no edema, pink and warm Neurologic: normal mental status (except confusiong), non-focal exam (moves all extremities), pupils equal and round, CN II-XII normal Psychiatric: mood appropriate, affect normal CBC and BMP: 06/26/17 03:27 06/27/17 05:17 ABG, PT/INR, D-dimer: ABG POC ABG pH 7.391 (7.35-7.45) 06/21/17 13:29 POC ABG pCO2 44.0 (35-45) 06/21/17 13:29 POC ABG pO2 50 (80-105) L 06/21/17 13:29 POC ABG HCO3 26.7 06/21/17 13:29 POC ABG Total CO2 28 06/21/17 13:29 POC ABG O2 Sat 84 06/21/17 13:29 PT/INR, D-dimer PT 16.9 Sec. (12.2-14.9) H 06/15/17 20:21 INR 1.31 (0.87-1.13) H 06/15/17 20:21 D-Dimer 985.05 ng/mlDDU (0-234) H 06/15/17 20:21 Abnormal lab findings: Abnormal Labs 06/15/17 06/15/17 06/15/17 17:52 19:00 19:00 WBC 3.7 L RBC 3.25 L Hgb Hct MCV RDW 15.8 H Lymph % (Auto) [place] % (Auto) 7.7 H Lymph # 0.9 L [place] # Seg Neutrophils % Seg Neuts % (Manual) Lymphocytes % (Manual) Nucleated RBC % Seg Neutrophils # Seg Neutrophils # Man Lymphocytes # (Manual) PT INR D-Dimer POC ABG pH POC ABG pCO2 POC ABG pO2 VBG pH Sodium Chloride 96.3 L Carbon Dioxide BUN 32 H Creatinine 3.5 H Glucose 428 H POC Glucose > 500 H Hemoglobin A1c Calcium Direct Bilirubin AST ALT Alkaline Phosphatase Total Creatine Kinase C-Reactive Protein NT-Pro-B Natriuret Pep Albumin Ur Specific [place] Urine WBC (Auto) U Epithel Cells (Auto) 06/15/17 06/15/17 06/15/17 19:00 19:35 20:00 WBC RBC Hgb Hct MCV RDW Lymph % (Auto) [place] % (Auto) Lymph # [place] # Seg Neutrophils % Seg Neuts % (Manual) Lymphocytes % (Manual) Nucleated RBC % Seg Neutrophils # Seg Neutrophils # Man Lymphocytes # (Manual) PT INR D-Dimer POC ABG pH POC ABG pCO2 POC ABG pO2 VBG pH 7.261 L Sodium Chloride Carbon Dioxide BUN Creatinine Glucose POC Glucose 371 H 384 H Hemoglobin A1c Calcium Direct Bilirubin AST ALT Alkaline Phosphatase Total Creatine Kinase C-Reactive Protein NT-Pro-B Natriuret Pep Albumin Ur Specific [place] Urine WBC (Auto) U Epithel Cells (Auto) 06/15/17 06/15/17 06/15/17 20:21 20:21 20:21 WBC RBC Hgb Hct MCV RDW Lymph % (Auto) [place] % (Auto) Lymph # [place] # Seg Neutrophils % Seg Neuts % (Manual) Lymphocytes % (Manual) Nucleated RBC % Seg Neutrophils # Seg Neutrophils # Man Lymphocytes # (Manual) PT 16.9 H INR 1.31 H D-Dimer 985.05 H POC ABG pH POC ABG pCO2 POC ABG pO2 VBG pH Sodium Chloride Carbon Dioxide BUN Creatinine Glucose POC Glucose Hemoglobin A1c Calcium Direct Bilirubin AST ALT Alkaline Phosphatase Total Creatine Kinase 147 H C-Reactive Protein NT-Pro-B Natriuret Pep 7290 H Albumin Ur Specific [place] Urine WBC (Auto) U Epithel Cells (Auto) 06/15/17 06/16/17 06/16/17 Unknown 10:13 13:23 WBC RBC Hgb Hct MCV RDW Lymph % (Auto) [place] % (Auto) Lymph # [place] # Seg Neutrophils % Seg Neuts % (Manual) Lymphocytes % (Manual) Nucleated RBC % Seg Neutrophils # Seg Neutrophils # Man Lymphocytes # (Manual) PT INR D-Dimer POC ABG pH POC ABG pCO2 POC ABG pO2 VBG pH Sodium Chloride Carbon Dioxide BUN Creatinine Glucose POC Glucose 290 H 301 H Hemoglobin A1c Calcium Direct Bilirubin AST ALT Alkaline Phosphatase Total Creatine Kinase C-Reactive Protein NT-Pro-B Natriuret Pep Albumin Ur Specific [place] Urine WBC (Auto) 72.0 H U Epithel Cells (Auto) 06/16/17 06/17/17 06/17/17 17:36 00:16 00:35 WBC RBC Hgb Hct MCV RDW Lymph % (Auto) [place] % (Auto) Lymph # [place] # Seg Neutrophils % Seg Neuts % (Manual) Lymphocytes % (Manual) Nucleated RBC % Seg Neutrophils # Seg Neutrophils # Man Lymphocytes # (Manual) PT INR D-Dimer POC ABG pH POC ABG pCO2 POC ABG pO2 VBG pH Sodium Chloride Carbon Dioxide BUN Creatinine Glucose POC Glucose 120 H < 40 L 188 H Hemoglobin A1c Calcium Direct Bilirubin AST ALT Alkaline Phosphatase Total Creatine Kinase C-Reactive Protein NT-Pro-B Natriuret Pep Albumin Ur Specific [place] Urine WBC (Auto) U Epithel Cells (Auto) 06/17/17 06/17/17 06/17/17 03:19 03:19 03:19 WBC RBC 3.31 L Hgb Hct MCV RDW 16.0 H Lymph % (Auto) [place] % (Auto) Lymph # 1.1 L [place] # Seg Neutrophils % 76.0 H Seg Neuts % (Manual) Lymphocytes % (Manual) Nucleated RBC % Seg Neutrophils # Seg Neutrophils # Man Lymphocytes # (Manual) PT INR D-Dimer POC ABG pH POC ABG pCO2 POC ABG pO2 VBG pH Sodium Chloride Carbon Dioxide BUN 45 H Creatinine 4.5 H Glucose 192 H POC Glucose Hemoglobin A1c 11.5 H Calcium 8.1 L Direct Bilirubin AST ALT Alkaline Phosphatase Total Creatine Kinase C-Reactive Protein NT-Pro-B Natriuret Pep Albumin Ur Specific [place] Urine WBC (Auto) U Epithel Cells (Auto) 06/17/17 06/17/17 06/17/17 03:51 06:44 11:15 WBC RBC Hgb Hct MCV RDW Lymph % (Auto) [place] % (Auto) Lymph # [place] # Seg Neutrophils % Seg Neuts % (Manual) Lymphocytes % (Manual) Nucleated RBC % Seg Neutrophils # Seg Neutrophils # Man Lymphocytes # (Manual) PT INR D-Dimer POC ABG pH POC ABG pCO2 POC ABG pO2 VBG pH Sodium Chloride Carbon Dioxide BUN Creatinine Glucose POC Glucose 184 H 326 H 380 H Hemoglobin A1c Calcium Direct Bilirubin AST ALT Alkaline Phosphatase Total Creatine Kinase C-Reactive Protein NT-Pro-B Natriuret Pep Albumin Ur Specific [place] Urine WBC (Auto) U Epithel Cells (Auto) 06/17/17 06/17/17 06/18/17 17:56 23:35 00:02 WBC RBC Hgb Hct MCV RDW Lymph % (Auto) [place] % (Auto) Lymph # [place] # Seg Neutrophils % Seg Neuts % (Manual) Lymphocytes % (Manual) Nucleated RBC % Seg Neutrophils # Seg Neutrophils # Man Lymphocytes # (Manual) PT INR D-Dimer POC ABG pH 7.314 L POC ABG pCO2 48.8 H POC ABG pO2 53 L VBG pH Sodium Chloride Carbon Dioxide BUN Creatinine Glucose POC Glucose 59 L < 40 L Hemoglobin A1c Calcium Direct Bilirubin AST ALT Alkaline Phosphatase Total Creatine Kinase C-Reactive Protein NT-Pro-B Natriuret Pep Albumin Ur Specific [place] Urine WBC (Auto) U Epithel Cells (Auto) 06/18/17 06/18/17 06/18/17 00:08 00:25 00:43 WBC RBC Hgb Hct MCV RDW Lymph % (Auto) [place] % (Auto) Lymph # [place] # Seg Neutrophils % Seg Neuts % (Manual) Lymphocytes % (Manual) Nucleated RBC % Seg Neutrophils # Seg Neutrophils # Man Lymphocytes # (Manual) PT INR D-Dimer POC ABG pH POC ABG pCO2 POC ABG pO2 VBG pH Sodium 136 L Chloride 95.8 L Carbon Dioxide BUN 21 H Creatinine 2.9 H Glucose 131 H POC Glucose 151 H Hemoglobin A1c Calcium 8.2 L Direct Bilirubin AST ALT Alkaline Phosphatase Total Creatine Kinase C-Reactive Protein NT-Pro-B Natriuret Pep Albumin Ur Specific [place] 1.041 H Urine WBC (Auto) 67.0 H U Epithel Cells (Auto) 24.0 H 06/18/17 06/18/17 06/18/17 02:11 05:00 05:00 WBC RBC 3.22 L Hgb Hct MCV RDW 16.2 H Lymph % (Auto) 10.3 L [place] % (Auto) Lymph # 0.7 L [place] # Seg Neutrophils % 81.3 H Seg Neuts % (Manual) Lymphocytes % (Manual) Nucleated RBC % Seg Neutrophils # Seg Neutrophils # Man Lymphocytes # (Manual) PT INR D-Dimer POC ABG pH POC ABG pCO2 POC ABG pO2 VBG pH Sodium Chloride Carbon Dioxide BUN 21 H Creatinine 3.2 H Glucose 159 H POC Glucose 183 H Hemoglobin A1c Calcium 7.9 L Direct Bilirubin 0.3 H AST 73 H ALT 112 H Alkaline Phosphatase 207 H Total Creatine Kinase C-Reactive Protein NT-Pro-B Natriuret Pep Albumin 3.4 L Ur Specific [place] Urine WBC (Auto) U Epithel Cells (Auto) 06/18/17 06/18/17 06/18/17 05:31 09:25 12:30 WBC RBC Hgb Hct MCV RDW Lymph % (Auto) [place] % (Auto) Lymph # [place] # Seg Neutrophils % Seg Neuts % (Manual) Lymphocytes % (Manual) Nucleated RBC % Seg Neutrophils # Seg Neutrophils # Man Lymphocytes # (Manual) PT INR D-Dimer POC ABG pH POC ABG pCO2 POC ABG pO2 72 L VBG pH Sodium Chloride Carbon Dioxide BUN Creatinine Glucose POC Glucose 181 H 286 H Hemoglobin A1c Calcium Direct Bilirubin AST ALT Alkaline Phosphatase Total Creatine Kinase C-Reactive Protein NT-Pro-B Natriuret Pep Albumin Ur Specific [place] Urine WBC (Auto) U Epithel Cells (Auto) 06/18/17 06/18/17 06/18/17 13:57 21:30 22:45 WBC RBC Hgb Hct MCV RDW Lymph % (Auto) [place] % (Auto) Lymph # [place] # Seg Neutrophils % Seg Neuts % (Manual) Lymphocytes % (Manual) Nucleated RBC % Seg Neutrophils # Seg Neutrophils # Man Lymphocytes # (Manual) PT INR D-Dimer POC ABG pH POC ABG pCO2 POC ABG pO2 VBG pH Sodium Chloride Carbon Dioxide BUN Creatinine Glucose POC Glucose 67 L 206 H Hemoglobin A1c Calcium Direct Bilirubin AST ALT Alkaline Phosphatase Total Creatine Kinase C-Reactive Protein 2.50 H NT-Pro-B Natriuret Pep Albumin Ur Specific [place] Urine WBC (Auto) U Epithel Cells (Auto) 06/19/17 06/19/17 06/19/17 00:56 04:50 04:50 WBC RBC 3.02 L Hgb 9.7 L Hct 29.4 L MCV RDW 16.9 H Lymph % (Auto) 5.9 L [place] % (Auto) Lymph # 0.5 L [place] # Seg Neutrophils % 87.3 H Seg Neuts % (Manual) Lymphocytes % (Manual) Nucleated RBC % Seg Neutrophils # Seg Neutrophils # Man Lymphocytes # (Manual) PT INR D-Dimer POC ABG pH POC ABG pCO2 POC ABG pO2 VBG pH Sodium 136 L Chloride 96.2 L Carbon Dioxide BUN 27 H Creatinine 4.3 H Glucose 111 H POC Glucose 150 H Hemoglobin A1c Calcium 8.0 L Direct Bilirubin AST 51 H ALT 95 H Alkaline Phosphatase 236 H Total Creatine Kinase C-Reactive Protein NT-Pro-B Natriuret Pep Albumin 3.3 L Ur Specific [place] Urine WBC (Auto) U Epithel Cells (Auto) 06/19/17 06/19/17 06/19/17 07:47 12:36 15:18 WBC RBC Hgb Hct MCV RDW Lymph % (Auto) [place] % (Auto) Lymph # [place] # Seg Neutrophils % Seg Neuts % (Manual) Lymphocytes % (Manual) Nucleated RBC % Seg Neutrophils # Seg Neutrophils # Man Lymphocytes # (Manual) PT INR D-Dimer POC ABG pH 7.256 L POC ABG pCO2 48.3 H POC ABG pO2 62 L VBG pH Sodium Chloride Carbon Dioxide BUN Creatinine Glucose POC Glucose 108 H 181 H Hemoglobin A1c Calcium Direct Bilirubin AST ALT Alkaline Phosphatase Total Creatine Kinase C-Reactive Protein NT-Pro-B Natriuret Pep Albumin Ur Specific [place] Urine WBC (Auto) U Epithel Cells (Auto) 06/19/17 06/19/17 06/19/17 18:22 18:23 21:40 WBC RBC Hgb Hct MCV RDW Lymph % (Auto) [place] % (Auto) Lymph # [place] # Seg Neutrophils % Seg Neuts % (Manual) Lymphocytes % (Manual) Nucleated RBC % Seg Neutrophils # Seg Neutrophils # Man Lymphocytes # (Manual) PT INR D-Dimer POC ABG pH 7.247 L POC ABG pCO2 50.5 H POC ABG pO2 108 H VBG pH Sodium Chloride Carbon Dioxide BUN Creatinine Glucose POC Glucose 177 H 217 H Hemoglobin A1c Calcium Direct Bilirubin AST ALT Alkaline Phosphatase Total Creatine Kinase C-Reactive Protein NT-Pro-B Natriuret Pep Albumin Ur Specific [place] Urine WBC (Auto) U Epithel Cells (Auto) 06/20/17 06/20/17 06/20/17 00:15 06:00 06:00 WBC 11.7 H RBC 2.78 L Hgb 8.7 L Hct 26.8 L MCV RDW 17.1 H Lymph % (Auto) 5.6 L [place] % (Auto) 7.9 H Lymph # 0.7 L [place] # 0.9 H Seg Neutrophils % 86.1 H Seg Neuts % (Manual) Lymphocytes % (Manual) Nucleated RBC % Seg Neutrophils # 10.0 H Seg Neutrophils # Man Lymphocytes # (Manual) PT INR D-Dimer POC ABG pH POC ABG pCO2 POC ABG pO2 VBG pH Sodium Chloride Carbon Dioxide BUN Creatinine 3.0 H Glucose 167 H POC Glucose 243 H Hemoglobin A1c Calcium 7.7 L Direct Bilirubin AST ALT Alkaline Phosphatase Total Creatine Kinase C-Reactive Protein NT-Pro-B Natriuret Pep Albumin Ur Specific [place] Urine WBC (Auto) U Epithel Cells (Auto) 06/20/17 06/20/17 06/20/17 09:01 10:53 11:10 WBC RBC Hgb Hct MCV RDW Lymph % (Auto) [place] % (Auto) Lymph # [place] # Seg Neutrophils % Seg Neuts % (Manual) Lymphocytes % (Manual) Nucleated RBC % Seg Neutrophils # Seg Neutrophils # Man Lymphocytes # (Manual) PT INR D-Dimer POC ABG pH POC ABG pCO2 POC ABG pO2 57 L VBG pH Sodium Chloride Carbon Dioxide BUN Creatinine Glucose POC Glucose 199 H 205 H Hemoglobin A1c Calcium Direct Bilirubin AST ALT Alkaline Phosphatase Total Creatine Kinase C-Reactive Protein NT-Pro-B Natriuret Pep Albumin Ur Specific [place] Urine WBC (Auto) U Epithel Cells (Auto) 06/20/17 06/20/17 06/20/17 16:16 21:34 22:02 WBC RBC Hgb Hct MCV RDW Lymph % (Auto) [place] % (Auto) Lymph # [place] # Seg Neutrophils % Seg Neuts % (Manual) Lymphocytes % (Manual) Nucleated RBC % Seg Neutrophils # Seg Neutrophils # Man Lymphocytes # (Manual) PT INR D-Dimer POC ABG pH POC ABG pCO2 POC ABG pO2 VBG pH Sodium Chloride Carbon Dioxide BUN Creatinine Glucose POC Glucose 233 H 150 H 158 H Hemoglobin A1c Calcium Direct Bilirubin AST ALT Alkaline Phosphatase Total Creatine Kinase C-Reactive Protein NT-Pro-B Natriuret Pep Albumin Ur Specific [place] Urine WBC (Auto) U Epithel Cells (Auto) 06/21/17 06/21/17 06/21/17 04:30 04:30 07:35 WBC RBC 2.63 L Hgb 8.4 L Hct 25.6 L MCV RDW 17.4 H Lymph % (Auto) 8.6 L [place] % (Auto) Lymph # 0.8 L [place] # Seg Neutrophils % 84.0 H Seg Neuts % (Manual) Lymphocytes % (Manual) Nucleated RBC % Seg Neutrophils # 8.0 H Seg Neutrophils # Man Lymphocytes # (Manual) PT INR D-Dimer POC ABG pH POC ABG pCO2 POC ABG pO2 VBG pH Sodium 136 L Chloride 96.0 L Carbon Dioxide BUN 28 H Creatinine 4.1 H Glucose 160 H POC Glucose 217 H Hemoglobin A1c Calcium 7.9 L Direct Bilirubin AST ALT Alkaline Phosphatase Total Creatine Kinase C-Reactive Protein NT-Pro-B Natriuret Pep Albumin Ur Specific [place] Urine WBC (Auto) U Epithel Cells (Auto) 06/21/17 06/21/17 06/21/17 11:33 13:29 16:47 WBC RBC Hgb Hct MCV RDW Lymph % (Auto) [place] % (Auto) Lymph # [place] # Seg Neutrophils % Seg Neuts % (Manual) Lymphocytes % (Manual) Nucleated RBC % Seg Neutrophils # Seg Neutrophils # Man Lymphocytes # (Manual) PT INR D-Dimer POC ABG pH POC ABG pCO2 POC ABG pO2 50 L VBG pH Sodium Chloride Carbon Dioxide BUN Creatinine Glucose POC Glucose 170 H 216 H Hemoglobin A1c Calcium Direct Bilirubin AST ALT Alkaline Phosphatase Total Creatine Kinase C-Reactive Protein NT-Pro-B Natriuret Pep Albumin Ur Specific [place] Urine WBC (Auto) U Epithel Cells (Auto) 06/21/17 06/22/17 06/22/17 21:06 06:20 06:20 WBC RBC 3.00 L Hgb 9.5 L Hct 29.3 L MCV 98 H RDW 17.5 H Lymph % (Auto) 11.0 L [place] % (Auto) Lymph # 0.8 L [place] # Seg Neutrophils % 86.8 H Seg Neuts % (Manual) Lymphocytes % (Manual) Nucleated RBC % Seg Neutrophils # Seg Neutrophils # Man Lymphocytes # (Manual) PT INR D-Dimer POC ABG pH POC ABG pCO2 POC ABG pO2 VBG pH Sodium Chloride 95.6 L Carbon Dioxide 21 L BUN 19 H Creatinine 2.9 H Glucose 187 H POC Glucose 141 H Hemoglobin A1c Calcium 8.2 L Direct Bilirubin AST ALT Alkaline Phosphatase Total Creatine Kinase C-Reactive Protein NT-Pro-B Natriuret Pep Albumin Ur Specific [place] Urine WBC (Auto) U Epithel Cells (Auto) 06/22/17 06/22/17 06/22/17 06:31 07:53 12:01 WBC RBC Hgb Hct MCV RDW Lymph % (Auto) [place] % (Auto) Lymph # [place] # Seg Neutrophils % Seg Neuts % (Manual) Lymphocytes % (Manual) Nucleated RBC % Seg Neutrophils # Seg Neutrophils # Man Lymphocytes # (Manual) PT INR D-Dimer POC ABG pH POC ABG pCO2 POC ABG pO2 VBG pH Sodium Chloride Carbon Dioxide BUN Creatinine Glucose POC Glucose 197 H 203 H 297 H Hemoglobin A1c Calcium Direct Bilirubin AST ALT Alkaline Phosphatase Total Creatine Kinase C-Reactive Protein NT-Pro-B Natriuret Pep Albumin Ur Specific [place] Urine WBC (Auto) U Epithel Cells (Auto) 06/22/17 06/22/17 06/23/17 16:32 21:29 07:20 WBC RBC 2.93 L Hgb 9.3 L Hct 28.2 L MCV RDW 17.1 H Lymph % (Auto) 7.4 L [place] % (Auto) 8.9 H Lymph # 0.7 L [place] # Seg Neutrophils % 83.4 H Seg Neuts % (Manual) Lymphocytes % (Manual) Nucleated RBC % Seg Neutrophils # Seg Neutrophils # Man Lymphocytes # (Manual) PT INR D-Dimer POC ABG pH POC ABG pCO2 POC ABG pO2 VBG pH Sodium Chloride Carbon Dioxide BUN Creatinine Glucose POC Glucose 370 H 400 H Hemoglobin A1c Calcium Direct Bilirubin AST ALT Alkaline Phosphatase Total Creatine Kinase C-Reactive Protein NT-Pro-B Natriuret Pep Albumin Ur Specific [place] Urine WBC (Auto) U Epithel Cells (Auto) 06/23/17 06/23/17 06/23/17 07:20 07:45 12:22 WBC RBC Hgb Hct MCV RDW Lymph % (Auto) [place] % (Auto) Lymph # [place] # Seg Neutrophils % Seg Neuts % (Manual) Lymphocytes % (Manual) Nucleated RBC % Seg Neutrophils # Seg Neutrophils # Man Lymphocytes # (Manual) PT INR D-Dimer POC ABG pH POC ABG pCO2 POC ABG pO2 VBG pH Sodium Chloride 96.7 L Carbon Dioxide BUN 41 H Creatinine 4.3 H Glucose 281 H POC Glucose 293 H 416 H Hemoglobin A1c Calcium 8.2 L Direct Bilirubin AST ALT Alkaline Phosphatase Total Creatine Kinase C-Reactive Protein NT-Pro-B Natriuret Pep Albumin Ur Specific [place] Urine WBC (Auto) U Epithel Cells (Auto) 06/23/17 06/24/17 06/24/17 21:56 05:40 05:40 WBC 11.9 H RBC 3.26 L Hgb 9.9 L Hct MCV RDW 17.0 H Lymph % (Auto) [place] % (Auto) Lymph # [place] # Seg Neutrophils % Seg Neuts % (Manual) 92.0 H Lymphocytes % (Manual) 5.0 L Nucleated RBC % Seg Neutrophils # Seg Neutrophils # Man 10.9 H Lymphocytes # (Manual) 0.6 L PT INR D-Dimer POC ABG pH POC ABG pCO2 POC ABG pO2 VBG pH Sodium Chloride 97.4 L Carbon Dioxide BUN 54 H Creatinine 4.9 H Glucose 175 H POC Glucose 310 H Hemoglobin A1c Calcium Direct Bilirubin AST ALT Alkaline Phosphatase Total Creatine Kinase C-Reactive Protein NT-Pro-B Natriuret Pep Albumin Ur Specific [place] Urine WBC (Auto) U Epithel Cells (Auto) 06/24/17 06/24/17 06/24/17 07:27 12:23 16:43 WBC RBC Hgb Hct MCV RDW Lymph % (Auto) [place] % (Auto) Lymph # [place] # Seg Neutrophils % Seg Neuts % (Manual) Lymphocytes % (Manual) Nucleated RBC % Seg Neutrophils # Seg Neutrophils # Man Lymphocytes # (Manual) PT INR D-Dimer POC ABG pH POC ABG pCO2 POC ABG pO2 VBG pH Sodium Chloride Carbon Dioxide BUN Creatinine Glucose POC Glucose 181 H 188 H 301 H Hemoglobin A1c Calcium Direct Bilirubin AST ALT Alkaline Phosphatase Total Creatine Kinase C-Reactive Protein NT-Pro-B Natriuret Pep Albumin Ur Specific [place] Urine WBC (Auto) U Epithel Cells (Auto) 06/24/17 06/25/17 06/25/17 21:33 07:50 11:55 WBC RBC Hgb Hct MCV RDW Lymph % (Auto) [place] % (Auto) Lymph # [place] # Seg Neutrophils % Seg Neuts % (Manual) Lymphocytes % (Manual) Nucleated RBC % Seg Neutrophils # Seg Neutrophils # Man Lymphocytes # (Manual) PT INR D-Dimer POC ABG pH POC ABG pCO2 POC ABG pO2 VBG pH Sodium Chloride Carbon Dioxide BUN Creatinine Glucose POC Glucose 204 H 132 H 261 H Hemoglobin A1c Calcium Direct Bilirubin AST ALT Alkaline Phosphatase Total Creatine Kinase C-Reactive Protein NT-Pro-B Natriuret Pep Albumin Ur Specific [place] Urine WBC (Auto) U Epithel Cells (Auto) 06/25/17 06/25/17 06/26/17 16:36 21:44 03:27 WBC RBC 3.32 L Hgb Hct MCV 98 H RDW 18.1 H Lymph % (Auto) [place] % (Auto) Lymph # [place] # Seg Neutrophils % Seg Neuts % (Manual) 86.0 H Lymphocytes % (Manual) 7.0 L Nucleated RBC % 2.0 H Seg Neutrophils # Seg Neutrophils # Man Lymphocytes # (Manual) 0.6 L PT INR D-Dimer POC ABG pH POC ABG pCO2 POC ABG pO2 VBG pH Sodium Chloride Carbon Dioxide BUN Creatinine Glucose POC Glucose 186 H 202 H Hemoglobin A1c Calcium Direct Bilirubin AST ALT Alkaline Phosphatase Total Creatine Kinase C-Reactive Protein NT-Pro-B Natriuret Pep Albumin Ur Specific [place] Urine WBC (Auto) U Epithel Cells (Auto) 06/26/17 06/26/17 06/26/17 03:27 07:31 12:03 WBC RBC Hgb Hct MCV RDW Lymph % (Auto) [place] % (Auto) Lymph # [place] # Seg Neutrophils % Seg Neuts % (Manual) Lymphocytes % (Manual) Nucleated RBC % Seg Neutrophils # Seg Neutrophils # Man Lymphocytes # (Manual) PT INR D-Dimer POC ABG pH POC ABG pCO2 POC ABG pO2 VBG pH Sodium Chloride Carbon Dioxide BUN 37 H Creatinine 3.2 H Glucose 127 H POC Glucose 151 H 233 H Hemoglobin A1c Calcium 7.7 L Direct Bilirubin AST ALT Alkaline Phosphatase Total Creatine Kinase C-Reactive Protein NT-Pro-B Natriuret Pep Albumin Ur Specific [place] Urine WBC (Auto) U Epithel Cells (Auto) 06/26/17 06/26/17 06/27/17 16:14 22:26 05:17 WBC RBC Hgb Hct MCV RDW Lymph % (Auto) [place] % (Auto) Lymph # [place] # Seg Neutrophils % Seg Neuts % (Manual) Lymphocytes % (Manual) Nucleated RBC % Seg Neutrophils # Seg Neutrophils # Man Lymphocytes # (Manual) PT INR D-Dimer POC ABG pH POC ABG pCO2 POC ABG pO2 VBG pH Sodium Chloride Carbon Dioxide BUN 19 H Creatinine 1.9 H Glucose 163 H POC Glucose 222 H 244 H Hemoglobin A1c Calcium 8.0 L Direct Bilirubin AST ALT Alkaline Phosphatase Total Creatine Kinase C-Reactive Protein NT-Pro-B Natriuret Pep Albumin Ur Specific [place] Urine WBC (Auto) U Epithel Cells (Auto) 06/27/17 07:39 WBC RBC Hgb Hct MCV RDW Lymph % (Auto) [place] % (Auto) Lymph # [place] # Seg Neutrophils % Seg Neuts % (Manual) Lymphocytes % (Manual) Nucleated RBC % Seg Neutrophils # Seg Neutrophils # Man Lymphocytes # (Manual) PT INR D-Dimer POC ABG pH POC ABG pCO2 POC ABG pO2 VBG pH Sodium Chloride Carbon Dioxide BUN Creatinine Glucose POC Glucose 175 H Hemoglobin A1c Calcium Direct Bilirubin AST ALT Alkaline Phosphatase Total Creatine Kinase C-Reactive Protein NT-Pro-B Natriuret Pep Albumin Ur Specific [place] Urine WBC (Auto) U Epithel Cells (Auto)
--- NOTE | 2017-06-27 16:16 | Progress Note ---
Assessment and Plan (1) Altered mental status Current Visit: Yes Status: Acute Qualifiers: Altered mental status type: transient alteration of awareness Qualified Code(s): R40.4 - Transient alteration of awareness Plan to address problem: Improved, back to baseline (2) ESRD (end stage renal disease) Current Visit: No Status: Acute Plan to address problem: HD MWF schedule (3) History of nephrectomy, unilateral Current Visit: No Status: Acute Stable. (4) Hypotension Current Visit: Yes Status: Acute Plan to address problem: Improved. (5) Anemia Current Visit: Yes Status: chronic Plan to address problem: JAN on dialysis D/c planning per primary team Subjective Date of service: 06/27/17 Principal diagnosis: sepsis, ESRD Interval history: No new events Objective - Exam Narrative Exam: Elderly -Cypriot female lying in bed in no acute distress HEENT: NCAT, pink oral mucous membrane Neck: Supple, no venous distention CVS: S1S2 RRR with no murmur, rub or gallop Chest: decreased BS b/L, no wheezing Abdomen: Protuberant, soft, nontender, no organomegaly, bowel sounds are present Extremities: No edema, no clubbing Neuro: AO x3, no focal deficits - Vital Signs Vital signs: Vital Signs - 12hr 06/27/17 06/27/17 06/27/17 06:17 08:00 08:27 Temperature 98.6 F 98.9 F Pulse Rate 98 H 95 H Pulse Rate [ 104 H Posterior Bilateral Bases ] Respiratory 18 20 Rate Respiratory 18 Rate [Posterior Bilateral Bases] Blood Pressure 132/56 132/50 O2 Sat by Pulse 92 84 Oximetry 06/27/17 06/27/17 06/27/17 09:12 09:13 13:28 Temperature Pulse Rate Pulse Rate [ 106 H 101 H Posterior Bilateral Bases ] Respiratory Rate Respiratory 17 17 Rate [Posterior Bilateral Bases] Blood Pressure O2 Sat by Pulse 96 Oximetry 06/27/17 13:29 Temperature Pulse Rate Pulse Rate [ 102 H Posterior Bilateral Bases ] Respiratory Rate Respiratory 18 Rate [Posterior Bilateral Bases] Blood Pressure O2 Sat by Pulse Oximetry - Lab 06/26/17 03:27 06/27/17 05:17 Most recent lab results Calcium 8.0 mg/dL (8.4-10.2) L 06/27/17 05:17 Magnesium 1.70 mg/dL (1.7-2.3) 06/20/17 06:00
[2017-06-27 17:20] VITALS: BP 134/55
== END 2017-06-27 17:02 | disposition home or self-care (01) | DRG 871 ==
LOC: ED 17:10 → CC1 06-16 03:32 → 3A 06-19 12:03 → CC1 06-19 16:47 → 2B-ACE 06-26 15:53
PROVIDERS: ADMIT Internal Medicine; ATTEND Internal Medicine
PROC: 06HN33Z Insertion of Infusion Device into Left Femoral Vein, Percutaneous Approach (ICD-10-PCS; 2017-06-16)
PROC: B54CZZA Ultrasonography of Left Lower Extremity Veins, Guidance (ICD-10-PCS; 2017-06-16)
PROC: 4A033R1 Measurement of Arterial Saturation, Peripheral, Percutaneous Approach (ICD-10-PCS; principal; 2017-06-18)
PROC: B544ZZA Ultrasonography of Left Jugular Veins, Guidance (ICD-10-PCS; 2017-06-19)
PROC: 02HV33Z Insertion of Infusion Device into Superior Vena Cava, Percutaneous Approach (ICD-10-PCS; 2017-06-20)
PROC: 5A09457 Assistance with Respiratory Ventilation, 24-96 Consecutive Hours, Continuous Positive Airway Pressure (ICD-10-PCS; 2017-06-20)
PROC: 5A1D70Z Performance of Urinary Filtration, Intermittent, Less than 6 Hours Per Day (ICD-10-PCS; 2017-06-21)
PROC: 5A1D70Z Performance of Urinary Filtration, Intermittent, Less than 6 Hours Per Day (ICD-10-PCS; 2017-06-24)
PROC: 5A1D70Z Performance of Urinary Filtration, Intermittent, Less than 6 Hours Per Day (ICD-10-PCS; 2017-06-26)
DX: A41.9 Sepsis, unspecified organism (principal); N18.6 End stage renal disease; J96.01 Acute respiratory failure with hypoxia; G93.41 Metabolic encephalopathy; R65.21 Severe sepsis with septic shock; N39.0 Urinary tract infection, site not specified; I50.30 Unspecified diastolic (congestive) heart failure; I13.2 Hypertensive heart and chronic kidney disease with heart failure and with stage 5 chronic kidney disease, or end stage renal disease; N17.9 Acute kidney failure, unspecified; I50.810 Right heart failure, unspecified; Z88.5 Allergy status to narcotic agent; Z88.8 Allergy status to other drugs, medicaments and biological substances; Z79.4 Long term (current) use of insulin; E11.22 Type 2 diabetes mellitus with diabetic chronic kidney disease; Z99.2 Dependence on renal dialysis; Z90.710 Acquired absence of both cervix and uterus; F17.200 Nicotine dependence, unspecified, uncomplicated; E11.40 Type 2 diabetes mellitus with diabetic neuropathy, unspecified; E11.51 Type 2 diabetes mellitus with diabetic peripheral angiopathy without gangrene; Z82.49 Family history of ischemic heart disease and other diseases of the circulatory system; Z83.3 Family history of diabetes mellitus; D63.1 Anemia in chronic kidney disease; I27.20 Pulmonary hypertension, unspecified; E11.649 Type 2 diabetes mellitus with hypoglycemia without coma; E78.5 Hyperlipidemia, unspecified
CPT/HCPCS: 36415; 36600; 70460; 71010; 71275; 80048; 80053; 80074; 81001; 82140; 82533; 82550; 82553; 82803; 82805; 82962; 83036; 83735; 83880; 84443; 84484; 85007; 85025; 85379; 85610; 85730; 86038; 86140; 86200; 86235; 86618; 87040; 87086; 87806; 93005; 93010; 93306; 94640; 94660; 94760; 96365; 96372; 99291; 99292; G8978-GP; G8979-GP; J0696; J0885; J1644; J1650; J1720; J1815; J1818; J2270; J2405; J2543; J2920; J3370; J7030; J7040; J7050; Q9967

== ENCOUNTER 2017-07-04 14:15 | Inpatient (IN) | payer MEDICARE ==
--- NOTE | 2017-07-04 15:01 | Emergency Department Report ---
ED General Adult HPI - General Chief complaint: Hypoglycemia Stated complaint: HYPOGLYCEMIA Time Seen by Provider: 07/04/17 14:48 Source: family Mode of arrival: Stretcher Limitations: Altered Mental Status - History of Present Illness Initial comments: Patient is 76 years old female history of end stage renal disease on dialysis, patient was recently discharged from the hospital. 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 Patient initial blood sugar at the office was 13, patient given dextrose 50 by EMS, blood sugar increased to 102 now. Patient denied any fever, shortness of breath but she stated that she's been coughing a lot recently. Patient denies any chest pain. Severity scale (0 -10): 5 - Related Data Home Medications Medication Instructions Recorded Confirmed Last Taken Carvedilol [Coreg] 25 mg PO BID 01/19/15 07/04/17 06/20/16 Gabapentin 300 mg PO BID 01/19/15 07/04/17 06/20/16 Insulin NPH Hum/Reg Insulin Hm 35 unit SQ QAM 01/19/15 07/04/17 07/04/17 [HumuLIN 70-30 Vial] Pantoprazole Sodium [Protonix] 40 mg PO QDAY 01/19/15 07/04/17 06/20/16 amLODIPine [Norvasc] 10 mg PO DAILY 01/19/15 07/04/17 06/20/16 Dorzolamide HCl/Timolol Maleat 10 ml OP QDAY 09/19/16 07/04/17 Unknown [Dorzolamide-Timolol Eye Drops] Lisinopril/Hydrochlorothiazide 1 tab PO QDAY 06/16/17 07/04/17 Unknown [Zestoretic 20-25 mg] Pravastatin Sodium [Pravachol] 40 mg PO HS 06/16/17 07/04/17 Unknown oxyCODONE /ACETAMINOPHEN [Percocet 5 mg PO PRN PRN 06/16/17 07/04/17 Unknown 5/325 mg] Allergies Allergy/AdvReac Type Severity Reaction Status Date / Time methadone AdvReac Vomiting Verified 04/06/15 11:54 tramadol AdvReac Vomiting Verified 04/06/15 11:54 unknown Allergy Unknown Uncoded 04/06/15 11:54 ED Review of Systems ROS: Stated complaint: HYPOGLYCEMIA Other details as noted in HPI Comment: All other systems reviewed and negative Constitutional: denies: chills, fever Respiratory: cough. denies: shortness of breath, SOB with exertion Cardiovascular: denies: chest pain, palpitations, dyspnea on exertion, orthopnea , edema, paroxysmal nocturnal dyspnea Gastrointestinal: denies: abdominal pain, nausea, vomiting, diarrhea, constipation, hematemesis, melena, hematochezia Musculoskeletal: denies: back pain, joint swelling Neurological: denies: headache, weakness, numbness, paresthesias ED Past Medical Hx - Past Medical History Hx Hypertension: Yes Hx Heart Attack/AMI: No Hx Congestive Heart Failure: Yes Hx Diabetes: Yes Hx Deep Vein Thrombosis: No Hx Pulmonary Embolism: No Hx Liver Disease: No Hx Renal Disease: Yes Hx Sickle Cell Disease: No Hx Arthritis: No Hx Seizures: No Hx Kidney Stones: No Hx Asthma: No Hx COPD: No Hx Tuberculosis: No Hx Dementia: No Hx HIV: No - Surgical History Hx Coronary Stent: No Hx Pacemaker: No Hx Internal Defibrillator: No Additional Surgical History: L kidney removed, Back surgery, Hysterectomy - Social History Smoking Status: Never Smoker - Medications Home Medications: Home Medications Medication Instructions Recorded Confirmed Last Taken Type Carvedilol [Coreg] 25 mg PO BID 01/19/15 07/04/17 06/20/16 History Gabapentin 300 mg PO BID 01/19/15 07/04/17 06/20/16 History Insulin NPH Hum/Reg Insulin Hm 35 unit SQ QAM 01/19/15 07/04/17 07/04/17 History [HumuLIN 70-30 Vial] Pantoprazole Sodium [Protonix] 40 mg PO QDAY 01/19/15 07/04/17 06/20/16 History amLODIPine [Norvasc] 10 mg PO DAILY 01/19/15 07/04/17 06/20/16 History Dorzolamide HCl/Timolol Maleat 10 ml OP QDAY 09/19/16 07/04/17 Unknown History [Dorzolamide-Timolol Eye Drops] Lisinopril/Hydrochlorothiazide 1 tab PO QDAY 06/16/17 07/04/17 Unknown History [Zestoretic 20-25 mg] Pravastatin Sodium [Pravachol] 40 mg PO HS 06/16/17 07/04/17 Unknown History oxyCODONE /ACETAMINOPHEN [Percocet 5 mg PO PRN PRN 06/16/17 07/04/17 Unknown History 5/325 mg] ED Physical Exam - General Limitations: Altered Mental Status General appearance: alert, in no apparent distress - Head Head exam: Present: atraumatic, normocephalic, normal inspection - Eye Eye exam: Present: normal appearance, PERRL - ENT ENT exam: Present: normal exam, mucous membranes moist - Neck Neck exam: Present: normal inspection, full ROM. Absent: meningismus, lymphadenopathy, thyromegaly - Respiratory Respiratory exam: Present: normal lung sounds bilaterally. Absent: respiratory distress, wheezes, rales, rhonchi, chest wall tenderness, accessory muscle use, decreased breath sounds, prolonged expiratory - Cardiovascular Cardiovascular Exam: Present: regular rate, normal rhythm, normal heart sounds - GI/Abdominal GI/Abdominal exam: Present: soft, normal bowel sounds. Absent: distended, tenderness, guarding, rebound, rigid, organomegaly, mass, bruit, pulsatile mass , hernia - Extremities Exam Extremities exam: Present: normal inspection, normal capillary refill - Back Exam Back exam: Present: normal inspection. Absent: CVA tenderness (R), CVA tenderness (L) - Neurological Exam Neurological exam: Present: alert, oriented X3, CN II-XII intact - Skin Skin exam: Present: warm, intact, normal color ED Course Vital Signs 07/04/17 14:48 Pulse Rate 87 Respiratory 21 Rate Blood Pressure 155/71 [Left] O2 Sat by Pulse 95 Oximetry ED Medical Decision Making - Lab Data Result diagrams: 07/04/17 15:01 07/04/17 15:01 - EKG Data -: EKG Interpreted by Ms Rate: normal - EKG Data Interpretation: no acute changes - Radiology Data Radiology results: report reviewed Chest x-ray showed no acute abnormalities. - Medical Decision Making discuss with Dr Alvarez, informed about the patient, agreed to admit to his service. Critical care attestation.: If time is entered above; I have spent that time in minutes in the direct care of this critically ill patient, excluding procedure time. ED Disposition Clinical Impression: Hypoglycemic reaction to insulin Altered mental status Qualifiers: Altered mental status type: transient alteration of awareness Qualified Code(s) : R40.4 - Transient alteration of awareness Disposition: DC-09 OP ADMIT IP TO THIS HOSP Is pt being admited?: Yes Condition: Stable
[2017-07-04 15:17] LABS: Basophils % (Auto) 0.7 % (0.0-1.8); Eosinophils % (Auto) 0.7 % (0.0-4.3); Hematocrit 37.7 % (30.3-42.9); Hemoglobin 11.9 gm/dl (10.1-14.3); Mean Corpuscular HGB Conc 32 % (30-34); Mean Corpuscular Hemoglobin 31 pg (28-32); Mean Corpuscular Volume 97 fl (79-97); Platelet Count 279 K/mm3 (140-440); Red Blood Count 3.88 M/mm3 (3.65-5.03); Red Cell Distribution Width 18.8 % (13.2-15.2); White Blood Count 7.3 K/mm3 (4.5-11.0)
--- NOTE | 2017-07-04 15:34 | XRay Report ---
AP CHEST: HISTORY: Lightheadedness, dizziness, syncope Dual-lumen right IJ catheter is unchanged since 06/23/17. Mild improvement in cardiomegaly and vascular congestion is demonstrated since the previous exam. Small left pleural effusion has resolved. The lungs are generally clear. IMPRESSION: No acute cardiopulmonary process is identified. Borderline to mild cardiomegaly and pulmonary venous congestion which has an proved.
[2017-07-04 15:40] LABS: Albumin 3.8 g/dL (3.9-5); Albumin/Globulin Ratio 1.3 %; Bilirubin,Total 0.6 mg/dL (0.1-1.2); Calcium 8.6 mg/dL (8.4-10.2); Chloride 102.4 mmol/L (98-107); Potassium 3.5 mmol/L (3.6-5.0); Total Protein 6.7 g/dL (6.3-8.2)
[2017-07-04] MEDS ORDERED: D10W 1,000 ML IV SCH (16:00)
[2017-07-04] MEDS ORDERED: D50W (25GM) Vial 50 ML IV ONE ×2 (16:00→21:55)
[2017-07-04] MEDS ORDERED: D50W (25GM) Syringe IV ONE ×2 (16:08→18:07)
[2017-07-04] MEDS ORDERED: TYLENOL PO PRN (16:50)
[2017-07-04] MEDS ORDERED: MILK OF MAGNESIA PO PRN (16:50)
[2017-07-04] MEDS ORDERED: ZOFRAN IV PRN (16:50)
[2017-07-04] MEDS ORDERED: PROVENTIL IH PRN (16:50)
[2017-07-04] MEDS ORDERED: DULCOLAX PR PRN (16:50)
--- NOTE | 2017-07-04 16:50 | History and Physical Report ---
History of Present Illness Chief complaint: her blood sugar is low History of present illness: 76 YO Female with ESRD on HD, HTN, DM, presents to ED for evaluation. Pt is confused and lethargic on exam. Pt is at bedside and provides history. As per , Pt took her insulin prior to leaving home for her nephrology appointment. Pt seen and evaluated at the nephrologists office and found to be confused, and weak. Serum glucose was checked, and was found to be 13. EMS called, and upon arrival patient was given D50 with improvement in serum glucose , but only mild improvement in symptoms. Pt transported to [facility] for evaluation. Pt seen and evaluated in ED and found to be confused,and lethargic with serum glucose of 33, but patient is able to protect her airway. Pt started on D10 drip. No reports of fever, chills, CP, Palpitations, NVD, Syncope, BRBPR, Recent Ill contacts, Trauma, or medication noncompliance. Pt acknowledges decreased oral intake over the past few days. Past History Past Medical History: diabetes, ESRD, hypertension Past Surgical History: hysterectomy, Other (nephrectomy, back) Social history: , lives with family. denies: smoking, alcohol abuse, prescription drug abuse Family history: diabetes, hypertension Medications and Allergies Allergies Allergy/AdvReac Type Severity Reaction Status Date / Time methadone AdvReac Vomiting Verified 04/06/15 11:54 tramadol AdvReac Vomiting Verified 04/06/15 11:54 unknown Allergy Unknown Uncoded 04/06/15 11:54 Home Medications Medication Instructions Recorded Confirmed Last Taken Type Carvedilol [Coreg] 25 mg PO BID 01/19/15 07/04/17 06/20/16 History Gabapentin 300 mg PO BID 01/19/15 07/04/17 06/20/16 History Insulin NPH Hum/Reg Insulin Hm 35 unit SQ QAM 01/19/15 07/04/17 07/04/17 History [HumuLIN 70-30 Vial] Pantoprazole Sodium [Protonix] 40 mg PO QDAY 01/19/15 07/04/17 06/20/16 History amLODIPine [Norvasc] 10 mg PO DAILY 01/19/15 07/04/17 06/20/16 History Dorzolamide HCl/Timolol Maleat 10 ml OP QDAY 03/01/17 12/14/17 Unknown History [Dorzolamide-Timolol Eye Drops] Lisinopril/Hydrochlorothiazide 1 tab PO QDAY 06/16/17 07/04/17 Unknown History [Zestoretic 20-25 mg] Pravastatin Sodium [Pravachol] 40 mg PO HS 06/16/17 07/04/17 Unknown History oxyCODONE /ACETAMINOPHEN [Percocet 5 mg PO PRN PRN 06/16/17 07/04/17 Unknown History 5/325 mg] Active Meds: Active Medications Dextrose (D10w) 1,000 mls @ 125 mls/hr IV DIRECT MUNA Last Admin: 07/04/17 15:56 Dose: 125 mls/hr Review of Systems ROS unobtainable: due to mental status Exam - Constitutional Vitals: Temp Pulse Resp BP Pulse Ox 87 21 155/71 95 07/04/17 14:48 07/04/17 14:48 07/04/17 14:48 07/04/17 14:48 General appearance: Present: mild distress, disheveled - EENT Eyes: Present: PERRL ENT: hearing intact, clear oral mucosa - Neck Neck: Present: supple, normal ROM - Respiratory Respiratory effort: normal Respiratory: bilateral: CTA - Cardiovascular Heart Sounds: Present: S1 & S2. Absent: rub, click - Extremities Extremities: pulses symmetrical, No edema Peripheral Pulses: within normal limits - Abdominal General gastrointestinal: Present: soft, non-tender, non-distended, normal bowel sounds Female genitourinary: Present: normal - Integumentary Integumentary: Present: clear, dry, clammy, decreased turgor - Musculoskeletal Musculoskeletal: generalized weakness - Psychiatric Psychiatric: no intact judgment & insight, no memory intact - Neurologic Neurologic: no gait normal Results - Labs CBC & Chem 7: 07/04/17 15:01 07/04/17 15:01 Labs: Abnormal lab results 07/04/17 07/04/17 Range/Units 15:01 15:01 RDW 18.8 H (13.2-15.2) % Lymph % (Auto) 8.8 L (13.4-35.0) % Lymph # 0.6 L (1.2-5.4) K/mm3 Seg Neutrophils % 84.4 H (40.0-70.0) % Sodium 146 H (137-145) mmol/L Potassium 3.5 L (3.6-5.0) mmol/L Glucose 33 L* (65-100) mg/dL Alkaline Phosphatase 231 H (35-129) units/L Albumin 3.8 L (3.9-5) g/dL Assessment and Plan - Patient Problems (1) Hypoglycemia Current Visit: Yes Status: Acute Plan to address problem: D10 therapy, monitor serum glucose, serial bmp, accu check, supportive care, hold antihyperglycemic therapy overnight. (2) Encephalopathy Current Visit: Yes Status: Acute Plan to address problem: Metabolic Encephalopathy: Suspect secondary to prolonged hypoglycemia, supportive care, monitor serum glucose, (3) ESRD (end stage renal disease) Current Visit: Yes Status: Acute Plan to address problem: Nephrology consulted in ED, dialysis as per renal team (4) HTN (hypertension) Current Visit: Yes Status: Acute Plan to address problem: Accelerated Hypertension: Monitor BP q shift, Iv hydralazine prn, continue medical management. (5) DVT prophylaxis Current Visit: Yes Status: Acute Plan to address problem: SCD to BLE while in bed
--- NOTE | 2017-07-04 17:43 | Cat Scan Report ---
FINAL REPORT EXAM: CT HEAD/BRAIN WO CON HISTORY: AMS, headache TECHNIQUE: Axial noncontrast CT images of the brain were performed. Total exam DLP 932.21 mGy-cm FINDINGS: There is normal valdez-white differentiation without midline shift or mass effect. There are no acute extra-axial fluid collections or intraparenchymal blood products. Ventricles and cisterns have normal size and configuration. There is streak artifact through the left middle cranial fossa with possible mild encephalomalacic defect. Bilateral temporal tips are prominent and commensurate with the remaining ventricular system. There is mild soft tissue/muscular prominence projecting over the posterior left parietal/occipital convexity. Clear imaged paranasal sinuses. No displaced calvarial fracture. IMPRESSION: Minimal atrophy. No acute transcortical infarct, bleed, or mass identified. Mild posterior left parietal/occipital muscular/soft tissue prominence without overlying soft tissue edema.
[2017-07-04] MEDS ORDERED: D50W (25GM) Vial IV PRN (22:13)
[2017-07-05] MEDS ORDERED: D50W (25GM) Syringe IV PRN (11:02)
[2017-07-05] MEDS ORDERED: REGLAN IV PRN (11:04)
--- NOTE | 2017-07-05 11:15 | Progress Note ---
Assessment and Plan Assessment and plan: Patient is a 76 yo woman with a history of end-stage renal disease on hemodialysis Saturday, Saturday, Saturday, diabetes mellitus type 2 on insulin, dyslipidemia, GERD, chronic pain syndrome, hypertension, peripheral neuropathy and glaucoma who presents with a blood glucose of only 13 with confusion. Patient was recently discharged last month, she was treated for septic shock and was in the ICU, documentation says she refused SNF hence bounced back CT of the head without contrast reported as minimal atrophy, no acute transcortical infarct bleed or mass effect, mild posterior left parietal/ occipital muscular/soft tissue prominence without overlying soft tissue edema pCXR reported as no acute process, borderline to mild cardiomegaly and pulmonary venous congestion which has improved, small left pleural effusion has resolved the lungs are clear -Acute metabolic encephalopathy due to hyperglycemia: Closely monitor blood sugars, treat with dextrose -Hypoglycemia with insulin: Start diet, Accu-Cheks -End-stage renal disease on hemodialysis: Consulted sample prep technician -Right occipital neck pain, reviewed CT head, no definite mass felt, possible contusion, ?trauma to head: continue to monitor, symptomatic management -DVT prophylaxis: Added subcutaneous heparin History Interval history: Patient was seen and examined. Follow-up on current diagnosis/low blood sugar. Overnight uneventful. Patient denies any chest pain, shortness breath, nausea /vomiting or severe headaches. Imaging, nursing note, chart, labs and old chart reviewed. Discussed with patient. Hospitalist Physical - Physical exam Narrative exam: GEN: Frail woman, appears chronically debilitated, NAD, AWAKE, ALERT, ORIENTATED 2 HEENT: NCAT, EOMI, PERRL, OP Clear, NECK: Palpable occipital neck pains without definite mass, no adenopathy, no thyromegaly, no JVD CVS/HEART: RRR, NORMAL S1S2, NO JVD, pulses present bilaterally CHEST/LUNGS: CTA B, Symmetrical chest expansion, good air entry bilaterally, she has a dialysis catheter right chest wall GI/Abdomen: soft, NTND, good bowel sounds, no guarding or rebound /Bladder: no suprapubic tenderness, no CVA or paraspinal tenderness EXT/Skin: no c/c/e, no obvious rash MSK: FROM x 4 Neuro: CN 2-12 grossly intact, no new focal deficits Psych: calm - Constitutional Vitals: Temp Pulse Resp BP Pulse Ox 99.3 F 96 H 18 146/53 95 07/05/17 07:50 07/05/17 07:50 07/05/17 07:50 07/05/17 07:50 07/05/17 09:33 General appearance: Present: disheveled Results - Labs CBC & Chem 7: 07/04/17 15:01 07/04/17 15:01 Labs: Laboratory Last Values WBC 7.3 K/mm3 (4.5-11.0) 07/04/17 15:01 RBC 3.88 M/mm3 (3.65-5.03) 07/04/17 15:01 Hgb 11.9 gm/dl (10.1-14.3) 07/04/17 15:01 Hct 37.7 % (30.3-42.9) 07/04/17 15:01 MCV 97 fl (79-97) 07/04/17 15:01 MCH 31 pg (28-32) 07/04/17 15:01 MCHC 32 % (30-34) 07/04/17 15:01 RDW 18.8 % (13.2-15.2) H 07/04/17 15:01 Plt Count 279 K/mm3 (140-440) 07/04/17 15:01 Lymph % (Auto) 8.8 % (13.4-35.0) L 07/04/17 15:01 [place] % (Auto) 5.4 % (0.0-7.3) 07/04/17 15:01 Eos % (Auto) 0.7 % (0.0-4.3) 07/04/17 15:01 Baso % (Auto) 0.7 % (0.0-1.8) 07/04/17 15:01 Lymph # 0.6 K/mm3 (1.2-5.4) L 07/04/17 15:01 [place] # 0.4 K/mm3 (0.0-0.8) 07/04/17 15:01 Eos # 0.0 K/mm3 (0.0-0.4) 07/04/17 15:01 Baso # 0.0 K/mm3 (0.0-0.1) 07/04/17 15:01 Seg Neutrophils % 84.4 % (40.0-70.0) H 07/04/17 15:01 Seg Neutrophils # 6.2 K/mm3 (1.8-7.7) 07/04/17 15:01 Sodium 146 mmol/L (137-145) H 07/04/17 15:01 Potassium 3.5 mmol/L (3.6-5.0) L 07/04/17 15:01 Chloride 102.4 mmol/L (98-107) 07/04/17 15:01 Carbon Dioxide 28 mmol/L (22-30) 07/04/17 15:01 Anion Gap 19 mmol/L 07/04/17 15:01 BUN 17 mg/dL (7-17) 07/04/17 15:01 Creatinine 1.2 mg/dL (0.7-1.2) 07/04/17 15:01 Estimated GFR 53 ml/min 07/04/17 15:01 BUN/Creatinine Ratio 14 % 07/04/17 15:01 Glucose 33 mg/dL (65-100) L* 07/04/17 15:01 POC Glucose 179 (70-105) H 07/05/17 01:57 Calcium 8.6 mg/dL (8.4-10.2) 07/04/17 15:01 Total Bilirubin 0.60 mg/dL (0.1-1.2) 07/04/17 15:01 AST 21 units/L (5-40) 07/04/17 15:01 ALT 18 units/L (7-56) 07/04/17 15:01 Alkaline Phosphatase 231 units/L (35-129) H 07/04/17 15:01 Troponin T 0.015 ng/mL (0.00-0.029) 07/04/17 15:01 Total Protein 6.7 g/dL (6.3-8.2) 07/04/17 15:01 Albumin 3.8 g/dL (3.9-5) L 07/04/17 15:01 Albumin/Globulin Ratio 1.3 % 07/04/17 15:01
[2017-07-05] MEDS: NOVOLOG SUB-Q SCH ×3 (12:42→23:24)
[2017-07-05] MEDS ORDERED: NACL 0.9% 100 ML IV PRN (15:30)
[2017-07-05] MEDS ORDERED: HEPARIN IV PRN ×2 (17:07→18:49)
[2017-07-05] MEDS ORDERED: NACL 0.9 (PRIMING MACHINE ONLY DIALYSIS) MC ONE ×2 (17:36→21:07)
--- NOTE | 2017-07-05 18:20 | Consultation ---
History of Present Illness - Reason for Consult Consult date: 07/05/17 end stage renal disease - History of Present Illness 76-year-old lady with a history of end-stage renal disease on hemodialysis on a Saturday, Saturday and Saturday schedule. Patient also has a history of type 2 diabetes mellitus. She was recently discharged from the hospital. Patient was brought back because of hypoglycemia. She was taken to the physician's office for a follow-up appointment. Patient was confused and her blood sugar was 13 mg /dL. She was also very weak. They called EMS and the patient was given D50 W and blood sugar increased to 102 mg/dL. Patient had very mild improvement in her symptoms (MENTAL status) and so she was brought to the hospital for further evaluation. I saw the patient on dialysis. I had given orders to the dialysis nurse earlier. She admits to having chills and cough productive of yellowish sputum. Appetite has been diminished. She denies any fever. No shortness of breath. No hemoptysis or wheezing. Past History Past Medical History: anemia, diabetes, ESRD, hypertension Past Surgical History: appendectomy, hysterectomy, Other (nephrectomy, back, permacath placement) Social history: , lives with family. denies: smoking, alcohol abuse, prescription drug abuse Family history: diabetes, hypertension Medications and Allergies Allergies Allergy/AdvReac Type Severity Reaction Status Date / Time methadone AdvReac Vomiting Verified 04/06/15 11:54 tramadol AdvReac Vomiting Verified 04/06/15 11:54 unknown Allergy Unknown Uncoded 04/06/15 11:54 Home Medications Medication Instructions Recorded Confirmed Last Taken Type Carvedilol [Coreg] 25 mg PO BID 01/19/15 07/04/17 06/20/16 History Gabapentin 300 mg PO BID 01/19/15 07/04/17 06/20/16 History Insulin NPH Hum/Reg Insulin Hm 35 unit SQ QAM 01/19/15 07/04/17 07/04/17 History [HumuLIN 70-30 Vial] Pantoprazole Sodium [Protonix] 40 mg PO QDAY 01/19/15 07/04/17 06/20/16 History amLODIPine [Norvasc] 10 mg PO DAILY 01/19/15 07/04/17 06/20/16 History Dorzolamide HCl/Timolol Maleat 10 ml OP QDAY 09/19/16 07/04/17 Unknown History [Dorzolamide-Timolol Eye Drops] Lisinopril/Hydrochlorothiazide 1 tab PO QDAY 06/16/17 07/04/17 Unknown History [Zestoretic 20-25 mg] Pravastatin Sodium [Pravachol] 40 mg PO HS 06/16/17 07/04/17 Unknown History oxyCODONE /ACETAMINOPHEN [Percocet 5 mg PO PRN PRN 06/16/17 07/04/17 Unknown History 5/325 mg] Active Meds: Active Medications Acetaminophen (Tylenol) 650 mg PO Q4H PRN PRN Reason: Pain MILD(1-3)/Fever >100.5/ALVARADO Last Admin: 07/05/17 10:59 Dose: 650 mg Albuterol (Proventil) 2.5 mg IH Q4HRT PRN PRN Reason: Shortness Of Breath Amlodipine Besylate (Norvasc) 10 mg PO DAILY MUNA Bisacodyl (Dulcolax) 10 mg TN QDAY PRN PRN Reason: Constipation unrelieved by MOM Carvedilol (Coreg) 25 mg PO BID MUNA Dextrose (D50w (25gm) Vial) 25 gm IV PRN PRN PRN Reason: Hypoglycemia Gabapentin (Neurontin) 300 mg PO BID MUNA Heparin Sodium (Porcine) (Heparin) 5,000 unit SUB-Q Q12HR MUNA Heparin Sodium (Porcine) (Heparin) 5,000 unit IV RAJENDRA PRN PRN Reason: hemodialysis Dextrose (D10w) 1,000 mls @ 125 mls/hr IV DIRECT MUNA Last Admin: 07/04/17 15:56 Dose: 125 mls/hr Sodium Chloride (Nacl 0.9%) 100 mls @ 999 mls/hr IV RAJENDRA PRN PRN Reason: Hypotension Insulin Aspart (Novolog) 0 units SUB-Q ACHS MUAN PRN Reason: Protocol Last Admin: 07/05/17 17:27 Dose: Not Given Metoclopramide HCl (Reglan) 10 mg IV Q8H PRN PRN Reason: Nausea And Vomiting Miscellaneous Medication (Dorzolamide Hcl/Timolol Maleat [Dorzolamide-Timolol Eye Drops]) 10 ml OP QDAY MUNA Ondansetron HCl (Zofran) 4 mg IV Q8H PRN PRN Reason: N/V unrelieved by Reglan Oxycodone/Acetaminophen (Percocet 5/325) 1 tab PO Q6H PRN PRN Reason: Pain Pantoprazole Sodium (Protonix) 40 mg PO QDAY MUNA Pravastatin Sodium (Pravachol) 40 mg PO HS MUNA Review of Systems All systems: negative (Constitutional: no fever she admits to chills. No anorexia or weight loss. HEENT: No sore throat or sinus drainage no hearing or vision impairment . Cardiovascular: No chest pain, shortness of breath, palpitations, lower extremity swelling or dizziness. Respiratory: Admits to cough productive of yellowish sputum, no shortness of breath, hemoptysis or wheezing. Gastrointestinal: No nausea, vomiting, diarrhea, abdominal pain, hematemesis or melena. Genitourinary: She makes very little urine No frequency urgency dysuria or hematuria. hematologic: No abnormal bleeding or bruising. Integumentary: no pruritus or rash. Neurological: She admits to dizziness. No headache no focal weakness or numbness, no syncope or seizures. Musculoskeletal : No joint pains no stiffness. Psychiatry: no anxiety but patient appears depressed) Exam - Vital Signs Vital signs: Vital Signs Pulse Resp BP Pulse Ox 87 21 155/71 95 07/04/17 14:48 07/04/17 14:48 07/04/17 14:48 07/04/17 14:48 - Physical Exam Narrative exam: Frail elderly -Italian lady lying in bed in no acute distress HEENT: NCAT, pink oral mucous membrane Neck: Supple, no venous distention, right IJ permacath CVS: S1S2 RRR with no murmur, rub or gallop Chest: Faint rhonchi, good chest expansion Abdomen: Protuberant, soft, nontender, no organomegaly, bowel sounds are present Extremities: No edema, no clubbing Skin: No rash, warm and dry Neuro: Awake, alert no focal deficits Results - Lab Results 07/04/17 15:01 07/04/17 15:01 Most recent lab results Calcium 8.6 mg/dL (8.4-10.2) 07/04/17 15:01 Assessment and Plan - Patient Problems (1) Hypertensive chronic kidney disease with stage 5 chronic kidney disease or end stage renal disease Current Visit: Yes Status: Acute Plan to address problem: Follow-up blood pressure on current medications (2) Altered mental status Current Visit: Yes Status: Acute Qualifiers: Altered mental status type: transient alteration of awareness Qualified Code(s): R40.4 - Transient alteration of awareness Plan to address problem: Mental status has improved. (3) ESRD (end stage renal disease) Current Visit: Yes Status: Acute Plan to address problem: Hemodialysis ongoing. Continue dialysis on a Saturday, Saturday and Saturday schedule. Low creatinine noted. Follow-up creatinine in the morning. If still low, may need to do 24-hour urine creatinine clearance to see if kidney function has improved. (4) Hypoglycemia Current Visit: Yes Status: Acute Plan to address problem: Insulin on hold. Blood sugar management by primary attending (5) History of nephrectomy, unilateral Current Visit: No Status: Acute (6) Anemia in chronic kidney disease Current Visit: Yes Status: Acute Plan to address problem: Give Erythropoetin on dialysis
[2017-07-05] MEDS: NEURONTIN PO SCH (23:24)
[2017-07-05] MEDS: PERCOCET 5/325 PO PRN (23:24)
[2017-07-05] MEDS: PRAVACHOL PO SCH (23:24)
[2017-07-05] MEDS: COREG PO SCH (23:24)
[2017-07-06 04:25] LABS: Hematocrit 34.5 % (30.3-42.9); Mean Corpuscular HGB Conc 32 % (30-34); Mean Corpuscular Hemoglobin 31 pg (28-32); Mean Corpuscular Volume 97 fl (79-97); Platelet Count 234 K/mm3 (140-440); Red Blood Count 3.56 M/mm3 (3.65-5.03); Red Cell Distribution Width 18.3 % (13.2-15.2); White Blood Count 6.3 K/mm3 (4.5-11.0)
[2017-07-06 04:42] LABS: Albumin/Globulin Ratio 0.9 %; Bilirubin,Total 0.6 mg/dL (0.1-1.2); Chloride 99.8 mmol/L (98-107); Potassium 3.4 mmol/L (3.6-5.0); Total Protein 6.2 g/dL (6.3-8.2)
[2017-07-06] MEDS: NOVOLOG SUB-Q SCH ×4 (08:25→22:07)
[2017-07-06] MEDS: NEURONTIN PO SCH (09:58)
[2017-07-06] MEDS: PROTONIX PO SCH (09:58)
[2017-07-06] MEDS ORDERED: TIMOLOL MALEAT OP SCH (10:00)
[2017-07-06] MEDS ORDERED: DORZOLAMIDE HCL OP SCH (10:00)
[2017-07-06] MEDS: COREG PO SCH ×2 (10:03→22:07)
[2017-07-06] MEDS: NORVASC PO SCH (10:04)
[2017-07-06] MEDS: HEPARIN SUB-Q SCH ×2 (10:22→22:08)
--- NOTE | 2017-07-06 11:30 | Progress Note ---
Assessment and Plan Assessment and plan: Patient is a 76 yo woman with a history of end-stage renal disease on hemodialysis Saturday, Saturday, Saturday, diabetes mellitus type 2 on insulin, dyslipidemia, GERD, chronic pain syndrome, hypertension, peripheral neuropathy and glaucoma who presents with a blood glucose of only 13 with confusion. Patient was recently discharged last month, she was treated for septic shock and was in the ICU, documentation says she refused SNF hence bounced back CT of the head without contrast reported as minimal atrophy, no acute transcortical infarct bleed or mass effect, mild posterior left parietal/ occipital muscular/soft tissue prominence without overlying soft tissue edema pCXR reported as no acute process, borderline to mild cardiomegaly and pulmonary venous congestion which has improved, small left pleural effusion has resolved the lungs are clear -Acute metabolic encephalopathy due to hyperglycemia: Closely monitor blood sugars, treat with dextrose -Hypoglycemia with insulin: Start diet, Accu-Cheks -End-stage renal disease on hemodialysis: Consulted accounting instructor -Right occipital neck pain, reviewed CT head, no definite mass felt, possible contusion, ?trauma to head: continue to monitor, symptomatic management -DVT prophylaxis: Added subcutaneous heparin 07/06/17: I called the to find out her baseline mental status, no answer at [phone], Will get Mri brain and consult Neurology. Asked staff to call me when he arrives. History Interval history: Patient was seen and examined. Follow-up on current diagnosis/low blood sugar. Overnight uneventful. Patient denies any chest pain, shortness breath, nausea /vomiting or severe headaches. Imaging, nursing note, chart, labs and old chart reviewed. Discussed with patient but she remains confused and left neck pain below ear. Hospitalist Physical - Physical exam Narrative exam: GEN: Frail woman, appears chronically debilitated, NAD, AWAKE, ALERT, ORIENTATED 1 HEENT: NCAT, EOMI, PERRL, OP Clear, NECK: Palpable occipital neck pains without definite mass, no adenopathy, no thyromegaly, no JVD CVS/HEART: RRR, NORMAL S1S2, NO JVD, pulses present bilaterally CHEST/LUNGS: CTA B, Symmetrical chest expansion, good air entry bilaterally, she has a dialysis catheter right chest wall GI/Abdomen: soft, NTND, good bowel sounds, no guarding or rebound /Bladder: no suprapubic tenderness, no CVA or paraspinal tenderness EXT/Skin: no c/c/e, no obvious rash MSK: FROM x 4 Neuro: CN 2-12 grossly intact, no new focal deficits Psych: calm - Constitutional Vitals: Temp Pulse Resp BP Pulse Ox 98.1 F 96 H 18 102/48 94 07/06/17 07:39 07/06/17 10:04 07/06/17 07:39 07/06/17 10:04 07/06/17 10:00 General appearance: Present: disheveled Results - Labs CBC & Chem 7: 07/06/17 03:51 07/06/17 03:51 Labs: Laboratory Last Values WBC 6.3 K/mm3 (4.5-11.0) 07/06/17 03:51 RBC 3.56 M/mm3 (3.65-5.03) L 07/06/17 03:51 Hgb 11.0 gm/dl (10.1-14.3) 07/06/17 03:51 Hct 34.5 % (30.3-42.9) 07/06/17 03:51 MCV 97 fl (79-97) 07/06/17 03:51 MCH 31 pg (28-32) 07/06/17 03:51 MCHC 32 % (30-34) 07/06/17 03:51 RDW 18.3 % (13.2-15.2) H 07/06/17 03:51 Plt Count 234 K/mm3 (140-440) 07/06/17 03:51 Lymph % (Auto) 8.8 % (13.4-35.0) L 07/04/17 15:01 [place] % (Auto) 5.4 % (0.0-7.3) 07/04/17 15:01 Eos % (Auto) 0.7 % (0.0-4.3) 07/04/17 15:01 Baso % (Auto) 0.7 % (0.0-1.8) 07/04/17 15:01 Lymph # 0.6 K/mm3 (1.2-5.4) L 07/04/17 15:01 [place] # 0.4 K/mm3 (0.0-0.8) 07/04/17 15:01 Eos # 0.0 K/mm3 (0.0-0.4) 07/04/17 15:01 Baso # 0.0 K/mm3 (0.0-0.1) 07/04/17 15:01 Seg Neutrophils % 84.4 % (40.0-70.0) H 07/04/17 15:01 Seg Neutrophils # 6.2 K/mm3 (1.8-7.7) 07/04/17 15:01 Sodium 138 mmol/L (137-145) D 07/06/17 03:51 Potassium 3.4 mmol/L (3.6-5.0) L 07/06/17 03:51 Chloride 99.8 mmol/L (98-107) 07/06/17 03:51 Carbon Dioxide 27 mmol/L (22-30) 07/06/17 03:51 Anion Gap 15 mmol/L 07/06/17 03:51 BUN 9 mg/dL (7-17) 07/06/17 03:51 Creatinine 1.5 mg/dL (0.7-1.2) H 07/06/17 03:51 Estimated GFR 41 ml/min 07/06/17 03:51 BUN/Creatinine Ratio 6 % 07/06/17 03:51 Glucose 149 mg/dL (65-100) H 07/06/17 03:51 POC Glucose 374 (70-105) H 07/05/17 22:48 Calcium 8.0 mg/dL (8.4-10.2) L 07/06/17 03:51 Total Bilirubin 0.60 mg/dL (0.1-1.2) 07/06/17 03:51 AST 14 units/L (5-40) 07/06/17 03:51 ALT 15 units/L (7-56) 07/06/17 03:51 Alkaline Phosphatase 215 units/L (35-129) H 07/06/17 03:51 Troponin T 0.015 ng/mL (0.00-0.029) 07/04/17 15:01 Total Protein 6.2 g/dL (6.3-8.2) L 07/06/17 03:51 Albumin 3.0 g/dL (3.9-5) L 07/06/17 03:51 Albumin/Globulin Ratio 0.9 % 07/06/17 03:51
--- NOTE | 2017-07-06 11:39 | Progress Note ---
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 Mental status has improved with improved glucose control (3) Hypoglycemia Current Visit: Yes Status: Acute Plan to address problem: improved (4) ESRD (end stage renal disease) Current Visit: Yes Status: Acute Plan to address problem: improved renal indices seen, possible renal recovery? will monitor lytes/renal parameters daily and decide whether pt needs further HD. (5) Anemia in chronic kidney disease Current Visit: No Status: Acute Plan to address problem: no EPO needed (6) History of nephrectomy, unilateral Current Visit: No Status: Acute Subjective Date of service: 07/06/17 Principal diagnosis: hypoglycemia Interval history: pt awake alert, FSG improved >100-200s Objective - Vital Signs Vital signs: Vital Signs - 12hr 07/06/17 07/06/17 07/06/17 04:14 05:42 05:50 Temperature 97.6 F Pulse Rate 78 75 Respiratory 20 18 Rate Blood Pressure 96/43 100/38 99/37 O2 Sat by Pulse 93 89 Oximetry 07/06/17 07/06/17 07/06/17 07:11 07:12 07:35 Temperature 97.5 F L Pulse Rate Respiratory 24 18 Rate Blood Pressure O2 Sat by Pulse Oximetry 07/06/17 07/06/17 07/06/17 07:39 10:00 10:03 Temperature 98.1 F Pulse Rate 80 88 96 H Respiratory 18 Rate Blood Pressure 114/53 102/48 102/48 O2 Sat by Pulse 90 94 Oximetry 07/06/17 10:04 Temperature Pulse Rate 96 H Respiratory Rate Blood Pressure 102/48 O2 Sat by Pulse Oximetry - General Appearance General appearance: well-nourished, appears stated age EENT: ATNC, PERRL, mucous membranes moist Neck: no JVD Respiratory: Present: Clear to Ascultation Cardiology: regular, S1S2 Gastrointestinal: normoactive bowel sounds Integumentary: no rash, other (no edema ) Neurologic: no focal deficit, alert and oriented x3, strength 5/5, CN 3-12 intact Psychiatric: mood/affect appropriate, cooperative - Lab 07/06/17 03:51 07/06/17 03:51 Most recent lab results Calcium 8.0 mg/dL (8.4-10.2) L 07/06/17 03:51
[2017-07-06] MEDS ORDERED: K-DUR PO ONE (12:00)
--- NOTE | 2017-07-06 13:43 | Consultation ---
History of Present Illness Consult date: 07/06/17 History of present illness: I have dictated a full consult she is in process of havinh her MRI of the brain done I will review this certainly sounds like hypoglycwemic encephalopathy from poor oral intake did note she was on excessive doses of neurontin for age/ level of renal function this can create severe sedation in older patients I will review this Past History Past Medical History: anemia, diabetes, ESRD, hypertension Past Surgical History: appendectomy, hysterectomy, Other (nephrectomy, back, permacath placement) Social history: , lives with family. denies: smoking, alcohol abuse, prescription drug abuse Family history: diabetes, hypertension Medications and Allergies Allergies Allergy/AdvReac Type Severity Reaction Status Date / Time methadone AdvReac Vomiting Verified 04/06/15 11:54 tramadol AdvReac Vomiting Verified 04/06/15 11:54 unknown Allergy Unknown Uncoded 04/06/15 11:54 Home Medications Medication Instructions Recorded Confirmed Last Taken Type Carvedilol [Coreg] 25 mg PO BID 01/19/15 07/04/17 06/20/16 History Gabapentin 300 mg PO BID 01/19/15 07/04/17 06/20/16 History Insulin NPH Hum/Reg Insulin Hm 35 unit SQ QAM 01/19/15 07/04/17 07/04/17 History [HumuLIN 70-30 Vial] Pantoprazole Sodium [Protonix] 40 mg PO QDAY 01/19/15 07/04/17 06/20/16 History amLODIPine [Norvasc] 10 mg PO DAILY 01/19/15 07/04/17 06/20/16 History Dorzolamide HCl/Timolol Maleat 10 ml OP QDAY 09/19/16 07/04/17 Unknown History [Dorzolamide-Timolol Eye Drops] Lisinopril/Hydrochlorothiazide 1 tab PO QDAY 06/16/17 07/04/17 Unknown History [Zestoretic 20-25 mg] Pravastatin Sodium [Pravachol] 40 mg PO HS 06/16/17 07/04/17 Unknown History oxyCODONE /ACETAMINOPHEN [Percocet 5 mg PO PRN PRN 06/16/17 07/04/17 Unknown History 5/325 mg] Active Meds: Active Medications Acetaminophen (Tylenol) 650 mg PO Q4H PRN PRN Reason: Pain MILD(1-3)/Fever >100.5/ALVARADO Last Admin: 07/05/17 10:59 Dose: 650 mg Albuterol (Proventil) 2.5 mg IH Q4HRT PRN PRN Reason: Shortness Of Breath Amlodipine Besylate (Norvasc) 10 mg PO DAILY [facility] Last Admin: 07/06/17 10:04 Dose: Not Given Bisacodyl (Dulcolax) 10 mg SD QDAY PRN PRN Reason: Constipation unrelieved by MOM Carvedilol (Coreg) 25 mg PO BID [facility] Last Admin: 07/06/17 10:03 Dose: Not Given Dextrose (D50w (25gm) Vial) 25 gm IV PRN PRN PRN Reason: Hypoglycemia Gabapentin (Neurontin) 300 mg PO BID [facility] Last Admin: 07/06/17 09:58 Dose: 300 mg Heparin Sodium (Porcine) (Heparin) 5,000 unit SUB-Q Q12HR [facility] Last Admin: 07/06/17 10:22 Dose: 5,000 unit Heparin Sodium (Porcine) (Heparin) 5,000 unit IV RAJENDRA PRN PRN Reason: hemodialysis Last Admin: 07/05/17 20:28 Dose: 5,000 unit Sodium Chloride (Nacl 0.9%) 100 mls @ 999 mls/hr IV RAJENDRA PRN PRN Reason: Hypotension Insulin Aspart (Novolog) 0 units SUB-Q ACHS MUNA PRN Reason: Protocol Last Admin: 07/06/17 12:11 Dose: 4 units Metoclopramide HCl (Reglan) 10 mg IV Q8H PRN PRN Reason: Nausea And Vomiting Miscellaneous Medication (Dorzolamide Hcl/Timolol Maleat [Dorzolamide-Timolol Eye Drops]) 10 ml OP QDAY [facility] Ondansetron HCl (Zofran) 4 mg IV Q8H PRN PRN Reason: N/V unrelieved by Reglan Oxycodone/Acetaminophen (Percocet 5/325) 1 tab PO Q6H PRN PRN Reason: Pain Last Admin: 07/05/17 23:24 Dose: 1 tab Pantoprazole Sodium (Protonix) 40 mg PO QDAY [facility] Last Admin: 07/06/17 09:58 Dose: 40 mg Pravastatin Sodium (Pravachol) 40 mg PO HS [facility] Last Admin: 07/05/17 23:24 Dose: 40 mg Physical Examination - Vital Signs Vital Signs: Vital Signs Pulse Resp BP Pulse Ox 87 21 155/71 95 07/04/17 14:48 07/04/17 14:48 07/04/17 14:48 07/04/17 14:48 Results - Laboratory Findings CBC and BMP: 07/06/17 03:51 07/06/17 03:51 Abnormal Lab Findings: Abnormal Labs 07/04/17 07/04/17 07/04/17 15:01 15:01 17:54 RBC RDW 18.8 H Lymph % (Auto) 8.8 L Lymph # 0.6 L Seg Neutrophils % 84.4 H Sodium 146 H Potassium 3.5 L Creatinine Glucose 33 L* POC Glucose 41 L Calcium Alkaline Phosphatase 231 H Total Protein Albumin 3.8 L 07/04/17 07/05/17 07/05/17 22:11 01:57 12:02 RBC RDW Lymph % (Auto) Lymph # Seg Neutrophils % Sodium Potassium Creatinine Glucose POC Glucose 160 H 179 H 291 H Calcium Alkaline Phosphatase Total Protein Albumin 07/05/17 07/05/17 07/05/17 16:45 22:45 22:48 RBC RDW Lymph % (Auto) Lymph # Seg Neutrophils % Sodium Potassium Creatinine Glucose POC Glucose 282 H > 500 H 374 H Calcium Alkaline Phosphatase Total Protein Albumin 07/06/17 07/06/17 07/06/17 03:51 03:51 11:41 RBC 3.56 L RDW 18.3 H Lymph % (Auto) Lymph # Seg Neutrophils % Sodium Potassium 3.4 L Creatinine 1.5 H Glucose 149 H POC Glucose 323 H Calcium 8.0 L Alkaline Phosphatase 215 H Total Protein 6.2 L Albumin 3.0 L
[2017-07-06] MEDS: PRAVACHOL PO SCH (22:09)
--- NOTE | 2017-07-07 02:49 | Consultation ---
HISTORY OF PRESENT ILLNESS: This is a 76-year-old black female who was readmitted to [facility] following a period of intense confusion and disorientation. She had previously according to the 's history been discharged from the hospital several days back. She interestingly was not eating well for 2-3 days because she had lost her dentures by history. She has taken some insulin, had seen her principal systems architect; her blood sugar at that point was 13. She was given dextrose 50 by the EMS. She had been coughing and also complaining of shortness of breath. Her previous medications were carvedilol, gabapentin, insulin, lisinopril, pravastatin. She has a history of kidney stones. She has history of congestive heart failure. She has a history of hypertension and when she presented to the hospital, her glucose was 33 and she had a sodium of 146 and a potassium of 3.5. She was admitted to the hospital with hypoglycemia and altered mental status associated with profound hypoglycemia. The patient's CT scan, which I reviewed, shows only minimal atrophy. Most recent laboratory showed the creatinine to be 1.5, glucose is in the range of 291-223 and albumin is 3.0. On my examination, the history from her who is at the bedside, he does not give me a very clear history of what happened to her except she had difficulty chewing and swallowing, apparently he did not alter her dose of insulin. She became more disoriented and inappropriate and lethargic and not at all reacting well. PHYSICAL EXAMINATION: VITAL SIGNS: Examination of the patient reveals her blood pressure at present to be 102/48, pulse rate is 96, respirations 18. She is afebrile. Her neck is supple. She has very limited speech, not reacting or responding to me much at all. She seems very withdrawn. Used Building Materials Yard Worker strength is equal. Motor tone in the lower extremities is unremarkable. She has absent reflexes throughout. Sensory examination is difficult to assess given the patient's level of responsivity. Cranial nerves 2-12 are intact. IMPRESSION: 1. Likely toxic encephalopathy, multifactorial. One thing that does concern me is her dose of Neurontin; typically, Neurontin should not be given as the creatinine is above 1.3-1.4 and particularly so in the elderly. I would recommend discontinuing that medication as it can produce sedation, especially in renal impairment and it is possible it is accumulated at the present dose. I would get an EEG. I plan to review her MRI scan. She is in the process of going for the MRI and ____ to obviously get the results but it has not yet been done. She does at this point is still appear to have altered mental status. This could be from profound hypoglycemia that had been present for 2-3 days ____. Given the history from the , he seems to have limited insight into her overall state of functioning and level of responsivity. So, I suspect that hypoglycemia may have been chronically present and this even possible that she did not have her doses of insulin well regulated but this is purely hypothetical. JOB# [id number] KRISTIN/SIMÓN
[2017-07-07 06:08] LABS: Calcium 7.9 mg/dL (8.4-10.2); Chloride 99.6 mmol/L (98-107); Potassium 3.3 mmol/L (3.6-5.0)
[2017-07-07] MEDS: NOVOLOG SUB-Q SCH ×4 (06:30→22:04)
[2017-07-07] MEDS: HEPARIN SUB-Q SCH ×2 (09:19→22:05)
[2017-07-07] MEDS: NORVASC PO SCH (09:20)
[2017-07-07] MEDS: PROTONIX PO SCH (09:21)
[2017-07-07] MEDS: COREG PO SCH ×2 (09:21→22:06)
[2017-07-07] MEDS: PERCOCET 5/325 PO PRN (09:29)
--- NOTE | 2017-07-07 11:38 | Progress Note ---
Assessment and Plan Assessment and plan: Patient is a 76 yo woman with a history of end-stage renal disease on hemodialysis Saturday, Saturday, Saturday, diabetes mellitus type 2 on insulin, dyslipidemia, GERD, chronic pain syndrome, hypertension, peripheral neuropathy and glaucoma who presents with a blood glucose of only 13 with confusion. Patient was recently discharged last month, she was treated for septic shock and was in the ICU, documentation says she refused SNF hence bounced back Acute metabolic encephalopathy due to hypoglycemia: Closely monitor blood sugars , treat with dextrose 50% iv prn. Blood glucose now normal. MRI Brain pending. Hypoglycemia with insulin: On consistent carbohydrate diet, Accu-Cheks End-stage renal disease on hemodialysis: Nephrology following Right occipital neck pain, reviewed CT head, no definite mass felt, possible contusion, ?trauma to head: continue to monitor, symptomatic management DVT prophylaxis: Heparin subcut History Interval history: Altered mental status no chest pain, nio vomiting Hospitalist Physical - Physical exam Narrative exam: GEN APPEARANCE : Not in acute distress HEENT: Normocephalic, Atraumatic NECK : supple, no JVD LUNGS: Clear to auscultation, bilaterally, no rales, no wheeze HEART: S1 and S2 regular, no murmurs, rubs or gallop, ABD: Soft, non tender, non distended, normal bowel sounds EXT: No edema, no clubbing, no cyanosis NEURO: Awake, confused, lethargic - Constitutional Vitals: Temp Pulse Resp BP Pulse Ox 98.7 F 91 H 18 110/48 96 07/07/17 08:03 07/07/17 09:21 07/07/17 09:29 07/07/17 09:21 07/07/17 08:03 Results - Labs CBC & Chem 7: 07/06/17 03:51 07/07/17 04:45 Labs: Laboratory Last Values WBC 6.3 K/mm3 (4.5-11.0) 07/06/17 03:51 RBC 3.56 M/mm3 (3.65-5.03) L 07/06/17 03:51 Hgb 11.0 gm/dl (10.1-14.3) 07/06/17 03:51 Hct 34.5 % (30.3-42.9) 07/06/17 03:51 MCV 97 fl (79-97) 07/06/17 03:51 MCH 31 pg (28-32) 07/06/17 03:51 MCHC 32 % (30-34) 07/06/17 03:51 RDW 18.3 % (13.2-15.2) H 07/06/17 03:51 Plt Count 234 K/mm3 (140-440) 07/06/17 03:51 Lymph % (Auto) 8.8 % (13.4-35.0) L 07/04/17 15:01 [place] % (Auto) 5.4 % (0.0-7.3) 07/04/17 15:01 Eos % (Auto) 0.7 % (0.0-4.3) 07/04/17 15:01 Baso % (Auto) 0.7 % (0.0-1.8) 07/04/17 15:01 Lymph # 0.6 K/mm3 (1.2-5.4) L 07/04/17 15:01 [place] # 0.4 K/mm3 (0.0-0.8) 07/04/17 15:01 Eos # 0.0 K/mm3 (0.0-0.4) 07/04/17 15:01 Baso # 0.0 K/mm3 (0.0-0.1) 07/04/17 15:01 Seg Neutrophils % 84.4 % (40.0-70.0) H 07/04/17 15:01 Seg Neutrophils # 6.2 K/mm3 (1.8-7.7) 07/04/17 15:01 Sodium 140 mmol/L (137-145) 07/07/17 04:45 Potassium 3.3 mmol/L (3.6-5.0) L 07/07/17 04:45 Chloride 99.6 mmol/L (98-107) 07/07/17 04:45 Carbon Dioxide 26 mmol/L (22-30) 07/07/17 04:45 Anion Gap 18 mmol/L 07/07/17 04:45 BUN 28 mg/dL (7-17) H 07/07/17 04:45 Creatinine 2.7 mg/dL (0.7-1.2) H D 07/07/17 04:45 Estimated GFR 21 ml/min 07/07/17 04:45 BUN/Creatinine Ratio 10 % 12/17/17 04:45 Glucose 123 mg/dL (65-100) H 07/07/17 04:45 POC Glucose 274 (70-105) H 07/06/17 21:57 Calcium 7.9 mg/dL (8.4-10.2) L 07/07/17 04:45 Total Bilirubin 0.60 mg/dL (0.1-1.2) 07/06/17 03:51 AST 14 units/L (5-40) 07/06/17 03:51 ALT 15 units/L (7-56) 07/06/17 03:51 Alkaline Phosphatase 215 units/L (35-129) H 07/06/17 03:51 Troponin T 0.015 ng/mL (0.00-0.029) 07/04/17 15:01 Total Protein 6.2 g/dL (6.3-8.2) L 07/06/17 03:51 Albumin 3.0 g/dL (3.9-5) L 07/06/17 03:51 Albumin/Globulin Ratio 0.9 % 07/06/17 03:51
--- NOTE | 2017-07-07 12:42 | Progress Note ---
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 Mental status has improved with improved glucose control (3) Hypoglycemia Current Visit: Yes Status: Acute Plan to address problem: improved (4) ESRD (end stage renal disease) Current Visit: Yes Status: Acute Plan to address problem: BUN/Cr rising off HD, will cont HD on MWF schedule (5) Anemia in chronic kidney disease Current Visit: No Status: Acute Plan to address problem: no EPO needed (6) History of nephrectomy, unilateral Current Visit: No Status: Acute Subjective Date of service: 07/07/17 Principal diagnosis: hypoglycemia Interval history: pt awake alert, FSG improved >200- 300s Objective - Vital Signs Vital signs: Vital Signs - 12hr 07/07/17 07/07/17 07/07/17 04:09 08:03 08:56 Temperature 99.2 F 98.7 F Pulse Rate 89 91 H Respiratory 18 18 18 Rate Blood Pressure 120/47 110/48 O2 Sat by Pulse 93 96 Oximetry 07/07/17 07/07/17 07/07/17 09:20 09:21 09:29 Temperature Pulse Rate 91 H 91 H Respiratory 18 Rate Blood Pressure 110/48 110/48 O2 Sat by Pulse Oximetry - General Appearance General appearance: appears stated age, chronically ill EENT: ATNC, PERRL, mucous membranes moist Neck: no JVD Respiratory: Present: Clear to Ascultation Cardiology: regular, S1S2 Gastrointestinal: normoactive bowel sounds Integumentary: no rash, other (no edema ) Neurologic: no focal deficit, alert and oriented x3, strength 5/5, CN 3-12 intact Psychiatric: mood/affect appropriate, cooperative - Lab 07/06/17 03:51 07/07/17 04:45 Most recent lab results Calcium 7.9 mg/dL (8.4-10.2) L 07/07/17 04:45
[2017-07-07] MEDS: TESSALON PERLES PO SCH ×2 (17:57→22:05)
[2017-07-07] MEDS: PRAVACHOL PO SCH (22:05)
[2017-07-08] MEDS: TESSALON PERLES PO SCH ×2 (05:47→13:57)
[2017-07-08] MEDS: NOVOLOG SUB-Q SCH ×3 (06:42→17:00)
--- NOTE | 2017-07-08 07:31 | Magnetic Resonance Report ---
FINAL REPORT EXAM: MR BRAIN WO CON HISTORY: AMS, headache TECHNIQUE: Multiplanar, multisequence MRI of the brain was performed without intravenous contrast. PRIORS: CT of the head 07/04/2017. FINDINGS: Motion artifact degrades image quality on several sequences. No intracranial hemorrhage, mass, mass effect, midline shift or evidence of ischemic infarct. No restricted diffusion. The intracranial flow voids are patent. The ventricles are normal in size, shape and position. The basilar cisterns are patent. Mild areas of T2 hyperintensity are seen in the periventricular and subcortical white matter. There is diffuse cerebral volume loss. Bilateral mastoid effusions are seen. Mucosal thickening of the maxillary and ethmoid sinuses is likely congestive or inflammatory. The orbits are intact. The extracranial soft tissues are normal. IMPRESSION: 1. No acute intracranial abnormality. 2. Mild findings of chronic microvascular ischemic disease and diffuse cerebral volume loss. 3. Bilateral mastoid effusions. 4. Mucosal thickening of the maxillary and ethmoid sinuses is likely congestive or inflammatory.
[2017-07-08] MEDS: HEPARIN SUB-Q SCH (09:27)
[2017-07-08] MEDS: PROTONIX PO SCH (09:29)
[2017-07-08] MEDS: COREG PO SCH (09:30)
[2017-07-08] MEDS: NORVASC PO SCH (09:33)
--- NOTE | 2017-07-08 12:59 | Discharge Summary ---
Providers - Providers Date of Admission: 07/04/17 16:50 Date of discharge: 07/08/17 Attending physician: TESSA THOMAS 07/05/17 11:00 Consult to Physician [CONS] Routine Consulting Provider: JAMILAH BUSCH Reason For Exam: esrd HD mwf, pt known to you Place consult to:: Notified:: Phone number called:: [phone] Was contact made?: Yes If yes, spoke with:: DANILO Time called:: 11:46 Comment:: SUSIE 07/06/17 11:30 Consult to Physician [CONS] Routine Consulting Provider: CORKY ESCOBEDO Reason For Exam: AMS, why confused? Place consult to:: Notified:: Phone number called:: [phone] Was contact made?: Yes If yes, spoke with:: ALEKSANDR Time called:: 12:00 Comment:: SUSIE Primary care physician: TESSA MAJOR Hospitalization Condition: Fair Hospital course: Patient is 76 yo with ESRD on dialysis, diabetes. She was brought to ED by paramedics because of hypoglycemia. She was lethargic at home , had blood glucose of 13, thererefore given 50%Dextrose and brought to ED. In Emergency room, her blood glucose was 33, so was started on 10%Dextrose and admitted. She improved slowly over several days, mental status went back to normal, lethargy resolved, 10% Dextrose was discontinued. Blood glucose increased and she was then discharged home. Total time spent on discharge, 33 mins. Disposition: - TO HOME OR SELFCARE - Discharge Diagnoses (1) Acute metabolic encephalopathy Status: Acute (2) ESRD on hemodialysis Status: Acute (3) Hypoglycemia associated with diabetes Status: Acute (4) Diabetes mellitus type 2 in nonobese Status: Chronic (5) HTN (hypertension), benign Status: Chronic (6) Hypokalemia Status: Acute Core Measure Documentation - Palliative Care Palliative Care/ Comfort Measures: Not Applicable - Core Measures Any of the following diagnoses?: none Exam - Physical Exam Narrative exam: GEN APPEARANCE : Not in acute distress HEENT: Normocephalic, Atraumatic NECK : supple, no JVD LUNGS: Clear to auscultation, bilaterally, no rales, no wheeze HEART: S1 and S2 regular, no murmurs, rubs or gallop, ABD: Soft, non tender, non distended, normal bowel sounds EXT: No edema, no clubbing, no cyanosis NEURO: Awake, alert,oriented x 3 - Constitutional Vitals: Temp Pulse Resp BP Pulse Ox 99.2 F 81 20 123/45 97 07/08/17 08:06 07/08/17 09:33 07/08/17 08:06 07/08/17 09:33 07/08/17 08:06 Plan Activity: no restrictions Diet: low salt, diabetic, renal Additional Instructions: 1.Follow up with PCP in 1 week. 2.Routine hemodialysis as scheduled Follow up with: TESSA MAJRO MD [Primary Care Provider] - 3-5 Days Prescriptions: guaiFENesin [Robitussin] 100 mg PO Q6H PRN #1 bottle PRN Reason: Cough Insulin NPH/Regular [Novolin 70/30] 4 unit SQ BIDDIAB #1 vial
--- NOTE | 2017-07-08 15:57 | Progress Note ---
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 Mental status has improved with improved glucose control (3) Hypoglycemia Current Visit: Yes Status: Acute Plan to address problem: improved (4) ESRD (end stage renal disease) Current Visit: Yes Status: Acute Plan to address problem: BUN/Cr rising off HD, will cont HD on MWF schedule (5) Anemia in chronic kidney disease Current Visit: No Status: Acute Plan to address problem: no EPO needed (6) History of nephrectomy, unilateral Current Visit: No Status: Acute Subjective Date of service: 07/08/17 Principal diagnosis: hypoglycemia Interval history: pt seen and examined during HD, BP 127/64 P 78 UF target 2.5L. in NAD Objective - Vital Signs Vital signs: Vital Signs - 12hr 07/08/17 07/08/17 07/08/17 04:30 08:06 09:30 Temperature 99.0 F 99.2 F Pulse Rate 86 81 81 Respiratory 18 20 Rate Blood Pressure 138/57 123/45 123/45 O2 Sat by Pulse 100 97 Oximetry 07/08/17 09:33 Temperature Pulse Rate 81 Respiratory Rate Blood Pressure 123/45 O2 Sat by Pulse Oximetry - General Appearance General appearance: well-nourished, appears stated age, chronically ill EENT: ATNC, PERRL, mucous membranes moist Neck: no JVD Respiratory: Present: Clear to Ascultation Cardiology: regular, S1S2 Gastrointestinal: normoactive bowel sounds Integumentary: no rash, other (no edema ) Neurologic: no focal deficit, alert and oriented x3, strength 5/5, CN 3-12 intact Psychiatric: mood/affect appropriate, cooperative - Lab 07/06/17 03:51 07/08/17 07:33 Most recent lab results Calcium 7.9 mg/dL (8.4-10.2) L 07/07/17 04:45
[2017-07-08] MEDS ORDERED: NACL 0.9 (PRIMING MACHINE ONLY DIALYSIS) MC ONE (16:36)
[2017-07-08 18:02] VITALS: BP 130/64
== END 2017-07-08 18:45 | disposition home or self-care (01) | DRG 637 ==
LOC: ED 14:15 → 3A 16:50 → 2B-ACE 18:09
PROVIDERS: ADMIT Internal Medicine; ATTEND Internal Medicine
PROC: 5A1D70Z Performance of Urinary Filtration, Intermittent, Less than 6 Hours Per Day (ICD-10-PCS; principal; 2017-07-05)
PROC: 5A1D70Z Performance of Urinary Filtration, Intermittent, Less than 6 Hours Per Day (ICD-10-PCS; 2017-07-08)
DX: E11.649 Type 2 diabetes mellitus with hypoglycemia without coma (principal); G93.41 Metabolic encephalopathy; I13.2 Hypertensive heart and chronic kidney disease with heart failure and with stage 5 chronic kidney disease, or end stage renal disease; N18.6 End stage renal disease; I50.9 Heart failure, unspecified; E11.22 Type 2 diabetes mellitus with diabetic chronic kidney disease; D63.1 Anemia in chronic kidney disease; K21.9 Gastro-esophageal reflux disease without esophagitis; G89.4 Chronic pain syndrome; E11.42 Type 2 diabetes mellitus with diabetic polyneuropathy; M54.2 Cervicalgia; Z79.4 Long term (current) use of insulin; Z79.899 Other long term (current) drug therapy; Z90.710 Acquired absence of both cervix and uterus; Z90.5 Acquired absence of kidney; Z82.49 Family history of ischemic heart disease and other diseases of the circulatory system; Z83.3 Family history of diabetes mellitus; Z90.49 Acquired absence of other specified parts of digestive tract; Z87.442 Personal history of urinary calculi
CPT/HCPCS: 36415; 70450; 70551; 71010; 80048; 80053; 82962; 84132; 84484; 85025; 85027; 87040; 93005; 93010; 96374; 96376; A9270-GY; J1644; J1815; J7030

== ENCOUNTER 2017-12-17 15:50 | Outpatient (CLI) | payer MEDICARE ==
--- NOTE | 2017-12-19 13:01 | XRay Report ---
CERVICAL SPINE SERIES THREE VIEWS: 12/17/17 15:50:00 CLINICAL: Neck pain. FINDINGS: Normal vertebral body alignment through T1. Decreased height of the C5 and C6 vertebral bodies but no fracture lines. The disc spaces are preserved. However, large anterior osteophytes from C2-3 through C6-7. The largest osteophytes are at C5-6. Minimal facet joint disease. The odontoid and C1 are normal. Normal airway and soft tissues. IMPRESSION: Extensive spondylosis with large anterior osteophytes. The osteophytes are particularly large at C5-6 and may impair swallowing.
== END 2017-12-17 15:51 | disposition home or self-care (01) ==
LOC: SPVIMAG 15:50
DX: M47.892 Other spondylosis, cervical region (principal); M25.78 Osteophyte, vertebrae
CPT/HCPCS: 72040

== ENCOUNTER 2018-09-22 13:48 | Inpatient (IN) | payer MEDICARE ==
--- NOTE | 2018-09-22 14:11 | Emergency Department Report ---
Chief Complaint: Medical Clearance Stated Complaint: DIALYSIS PATIENT Time Seen by Provider: 09/22/18 14:06 - HPI History of Present Illness: Pt presents due to left AV fistula failure Pt was unable to do dialysis today due to failure of the fistula Pt has not been able to have dialysis since 09/17 Pt brought a paper with her which is a plan for left AVF thrombectomy on 09/23/18 at 8:30 AM MSE complete MSE screening note: Focused history and physical exam performed. Due to findings the following was ordered: [facility] ED Disposition for MSE Condition: Stable
--- NOTE | 2018-09-22 14:58 | Emergency Department Report ---
ED General Adult HPI - General Chief complaint: Medical Clearance Stated complaint: DIALYSIS PATIENT Time Seen by Provider: 09/22/18 14:06 Source: patient Mode of arrival: Ambulatory Limitations: No Limitations - History of Present Illness Initial comments: Patient is 77-year-old female with history of end-stage renal disease on hemodialysis, diabetes and hypertension. Patient was sent from dialysis center for failure to dialyze due to left upper extremity fistula not working. Patient stated that last dialysis was September 17. Patient denied any chest pain, shortness of breath, nausea or vomiting. Patient brought in labor from Dr. Colbert, vascular surgeon stating that she is scheduled for fistula thrombectomy tomorrow. She denied any fever or chills. Severity scale (0 -10): 0 - Related Data Home Medications Medication Instructions Recorded Confirmed Last Taken Carvedilol [Coreg] 25 mg PO BID 01/19/15 08/10/17 06/20/16 Pantoprazole Sodium [Protonix] 40 mg PO QDAY 01/19/15 08/10/17 06/20/16 Dorzolamide HCl/Timolol Maleat 10 ml OP QDAY 09/19/16 08/10/17 Unknown [Dorzolamide-Timolol Eye Drops] Previous Rx's Medication Instructions Recorded Last Taken Type guaiFENesin [Robitussin] 100 mg PO Q6H PRN #1 bottle 07/08/17 Unknown Rx Haloperidol [Haldol] 5 mg PO Q6H PRN tablet 08/14/17 Unknown Rx Insulin NPH/Regular [NovoLIN 70/30] 4 unit SUB-Q BIDDIAB units 08/14/17 Unknown Rx Carvedilol [Coreg] 6.25 mg PO BID #60 tablet 05/22/18 Unknown Rx Dorzolamide/Timolol(Nf) 2-0.5% 1 drops OU BID bottle 05/22/18 Unknown Rx [Cosopt (Nf)] Epoetin Pradeep 10,000 Unit [Procrit] 10,000 unit IV RAJENDRA PRN vial 05/22/18 Unknown Rx Gabapentin [Neurontin] 300 mg PO BID #60 capsule 05/22/18 Unknown Rx Insulin Regular, Human [HumuLIN R] 0 units SUB-Q ACHS units 05/22/18 Unknown Rx Latanoprost 0.005% 1 drops OU QPM bottle 05/22/18 Unknown Rx Lisinopril/Hydrochlorothiazide 1 tab PO QDAY #30 tablet 05/22/18 Unknown Rx [Zestoretic 20-25 mg] Pravastatin Sodium [Pravachol] 40 mg PO HS #30 tablet 05/22/18 Unknown Rx amLODIPine [Norvasc] 10 mg PO DAILY #30 tablet 05/22/18 Unknown Rx hydroCHLOROthiazide [HCTZ] 25 mg PO QDAY tablet 05/22/18 Unknown Rx levoFLOXacin [Levaquin TAB] 500 mg PO Q48H #5 tablet 05/22/18 Unknown Rx Allergies Allergy/AdvReac Type Severity Reaction Status Date / Time methadone AdvReac Vomiting Verified 08/08/17 20:43 tramadol AdvReac Vomiting Verified 08/08/17 20:43 unknown Allergy Unknown Uncoded 08/08/17 20:43 ED Review of Systems ROS: Stated complaint: DIALYSIS PATIENT Other details as noted in HPI Comment: All other systems reviewed and negative Constitutional: denies: chills, fever Respiratory: denies: cough, orthopnea, shortness of breath, SOB with exertion, SOB at rest, wheezing Cardiovascular: denies: chest pain, palpitations Gastrointestinal: denies: abdominal pain, nausea Musculoskeletal: denies: back pain ED Past Medical Hx - Past Medical History Hx Hypertension: Yes Hx Heart Attack/AMI: No Hx Congestive Heart Failure: Yes Hx Diabetes: Yes Hx Deep Vein Thrombosis: No Hx Pulmonary Embolism: No Hx Liver Disease: No Hx Renal Disease: Yes (M,W,F) Hx Sickle Cell Disease: No Hx Arthritis: No Hx Seizures: No Hx Kidney Stones: No Hx Asthma: No Hx COPD: No Hx Tuberculosis: No Hx Dementia: No Hx HIV: No - Surgical History Hx Coronary Stent: No Hx Pacemaker: No Hx Internal Defibrillator: No Additional Surgical History: L kidney removed, Back surgery, Hysterectomy - Social History Smoking Status: Never Smoker Substance Use Type: None - Medications Home Medications: Home Medications Medication Instructions Recorded Confirmed Last Taken Type Carvedilol [Coreg] 25 mg PO BID 01/19/15 08/10/17 06/20/16 History Pantoprazole Sodium [Protonix] 40 mg PO QDAY 01/19/15 08/10/17 06/20/16 History Dorzolamide HCl/Timolol Maleat 10 ml OP QDAY 09/19/16 08/10/17 Unknown History [Dorzolamide-Timolol Eye Drops] guaiFENesin [Robitussin] 100 mg PO Q6H PRN #1 bottle 07/08/17 08/10/17 Unknown Rx Haloperidol [Haldol] 5 mg PO Q6H PRN tablet 08/14/17 Unknown Rx Insulin NPH/Regular [NovoLIN 70/30] 4 unit SUB-Q BIDDIAB units 08/14/17 Unknown Rx Carvedilol [Coreg] 6.25 mg PO BID #60 tablet 05/22/18 Unknown Rx Dorzolamide/Timolol(Nf) 2-0.5% 1 drops OU BID bottle 05/22/18 Unknown Rx [Cosopt (Nf)] Epoetin Pradeep 10,000 Unit [Procrit] 10,000 unit IV RAJENDRA PRN vial 05/22/18 Unknown Rx Gabapentin [Neurontin] 300 mg PO BID #60 capsule 05/22/18 Unknown Rx Insulin Regular, Human [HumuLIN R] 0 units SUB-Q ACHS units 05/22/18 Unknown Rx Latanoprost 0.005% 1 drops OU QPM bottle 05/22/18 Unknown Rx Lisinopril/Hydrochlorothiazide 1 tab PO QDAY #30 tablet 05/22/18 Unknown Rx [Zestoretic 20-25 mg] Pravastatin Sodium [Pravachol] 40 mg PO HS #30 tablet 05/22/18 Unknown Rx amLODIPine [Norvasc] 10 mg PO DAILY #30 tablet 05/22/18 Unknown Rx hydroCHLOROthiazide [HCTZ] 25 mg PO QDAY tablet 05/22/18 Unknown Rx levoFLOXacin [Levaquin TAB] 500 mg PO Q48H #5 tablet 05/22/18 Unknown Rx ED Physical Exam - General Limitations: No Limitations General appearance: alert, in no apparent distress - Head Head exam: Present: atraumatic, normocephalic, normal inspection - Eye Eye exam: Present: normal appearance, PERRL - ENT ENT exam: Present: normal exam, normal orophraynx, mucous membranes moist - Neck Neck exam: Present: normal inspection, full ROM. Absent: tenderness, meningismus, lymphadenopathy, thyromegaly - Respiratory Respiratory exam: Present: normal lung sounds bilaterally. Absent: respiratory distress, wheezes, rales, rhonchi, chest wall tenderness, accessory muscle use, decreased breath sounds, prolonged expiratory - Cardiovascular Cardiovascular Exam: Present: regular rate, normal rhythm, normal heart sounds - GI/Abdominal GI/Abdominal exam: Present: soft. Absent: distended, tenderness, guarding, rebound, rigid, mass - Extremities Exam Extremities exam: Present: normal inspection, full ROM, normal capillary refill, other (left upper extremity fistula, No thrill) - Back Exam Back exam: Present: normal inspection, full ROM - Neurological Exam Neurological exam: Present: alert, oriented X3, CN II-XII intact - Psychiatric Psychiatric exam: Present: normal mood - Skin Skin exam: Present: warm, intact, normal color ED Course Vital Signs 09/22/18 09/22/18 09/22/18 14:06 14:33 16:00 Temperature 97.3 F L 97.7 F Pulse Rate 90 84 82 Respiratory 18 19 20 Rate Blood Pressure 147/114 148/38 Blood Pressure 177/68 [Right] O2 Sat by Pulse 97 98 98 Oximetry - Consultations Consultation #1: 09/22/18 16:59 I discussed the patient is Dr. Noriega, he advised to admit the patient to the hospital and keep the patient nothing by mouth after midnight Consultation #2: 09/22/18 17:39 I discussed the patient is Dr. Causey, from nephrology, he advised to admit to the hospital and he will follow-up ED Medical Decision Making - Lab Data Result diagrams: 09/22/18 14:58 09/22/18 14:39 - Medical Decision Making I discussed the patient with Dr. Will, he had be to admit the patient to medical service. Critical Care Time: Yes Critical care time in (mins) excluding proc time.: 30 Critical care attestation.: If time is entered above; I have spent that time in minutes in the direct care of this critically ill patient, excluding procedure time. ED Disposition Clinical Impression: Acute hyperkalemia, End stage renal disease on dialysis Disposition: OP ADMIT IP TO THIS HOSP Is pt being admited?: Yes Condition: Stable Referrals: [facility] [Other] - 3-5 Days
[2018-09-22 15:18] LABS: Basophils % (Auto) 0.5 % (0.0-1.8); Eosinophils # (Auto) 0.2 K/mm3 (0.0-0.4); Eosinophils % (Auto) 4.1 % (0.0-4.3); Hematocrit 37.7 % (30.3-42.9); Hemoglobin 12.7 gm/dl (10.1-14.3); Lymphocytes # (Auto) 1.9 K/mm3 (1.2-5.4); Lymphocytes % (Auto) 32.9 % (13.4-35.0); Mean Corpuscular HGB Conc 34 % (30-34); Mean Corpuscular Volume 93 fl (79-97); Monocytes # (Auto) 0.3 K/mm3 (0.0-0.8); Monocytes % (Auto) 4.4 % (0.0-7.3); Platelet Count 168 K/mm3 (140-440); Red Blood Count 4.07 M/mm3 (3.65-5.03); Red Cell Distribution Width 16.4 % (13.2-15.2)
[2018-09-22 15:24] LABS: INR 1.02 (0.87-1.13); Partial Thromboplastin Time 22.6 Sec. (24.2-36.6)
[2018-09-22 15:28] LABS: Calcium 9.2 mg/dL (8.4-10.2)
[2018-09-22] MEDS ORDERED: HumuLIN R IV ONE (16:16)
[2018-09-22] MEDS ORDERED: D50W (25GM) Syringe IV ONE (16:16)
--- NOTE | 2018-09-22 16:59 | Event Note ---
Date: 09/22/18 Patient missed HD session, AVF malfunction. Denies ROGERIO, K 5.4. Will schedle for thrombectomy vs permcath tomorrow.
[2018-09-22] MEDS ORDERED: KIONEX PO ONE (18:07)
[2018-09-22] MEDS ORDERED: KIONEX ONE ×2 (18:44)
[2018-09-23] MEDS ORDERED: HALDOL PO PRN (02:29)
[2018-09-23] MEDS ORDERED: TIMOLOL OU SCH (02:30)
[2018-09-23] MEDS ORDERED: DORZOLAMIDE OU SCH (02:30)
[2018-09-23] MEDS ORDERED: AMBIEN PO PRN (02:32)
[2018-09-23] MEDS ORDERED: DILAUDID IV PRN (02:32)
[2018-09-23] MEDS ORDERED: SODIUM CHLORIDE FLUSH SYRINGE 10 ML IV PRN (02:32)
[2018-09-23] MEDS ORDERED: ZOFRAN IV PRN (02:32)
[2018-09-23] MEDS ORDERED: PERCOCET 5/325 PO PRN (02:32)
[2018-09-23] MEDS ORDERED: TYLENOL PO PRN (02:32)
[2018-09-23] MEDS: COREG PO SCH ×3 (04:18→21:33)
[2018-09-23] MEDS: NEURONTIN PO SCH ×3 (04:18→22:09)
[2018-09-23 05:52] LABS: Basophils % (Auto) 0.8 % (0.0-1.8); Eosinophils # (Auto) 0.2 K/mm3 (0.0-0.4); Hematocrit 35.9 % (30.3-42.9); Hemoglobin 12.1 gm/dl (10.1-14.3); Lymphocytes # (Auto) 1.9 K/mm3 (1.2-5.4); Lymphocytes % (Auto) 39.7 % (13.4-35.0); Mean Corpuscular HGB Conc 34 % (30-34); Mean Corpuscular Volume 92 fl (79-97); Monocytes # (Auto) 0.3 K/mm3 (0.0-0.8); Monocytes % (Auto) 6.4 % (0.0-7.3); Platelet Count 149 K/mm3 (140-440); Red Cell Distribution Width 16.1 % (13.2-15.2)
[2018-09-23 06:08] LABS: Albumin 4.1 g/dL (3.9-5); Calcium 9.2 mg/dL (8.4-10.2)
--- NOTE | 2018-09-23 06:42 | Event Note ---
Date: 09/22/18 See dictated H/p in repots Malfunctioning AV Graft ESRD needing HD Volume Overload
--- NOTE | 2018-09-23 07:09 | History and Physical Report ---
CHIEF COMPLAINT: Malfunctioning left upper extremity AV fistula. HISTORY OF PRESENT ILLNESS: A 77-year-old female sent from dialysis center for malfunctioning left upper extremity AV fistula. The patient's last dialysis was on 09/17/2018. No chest pain. No shortness of breath. The patient was supposed to be scheduled for fistula thrombectomy tomorrow. No fever or chills. PAST MEDICAL HISTORY: As mentioned, insulin-dependent diabetes, hypertension, end-stage renal disease, anemia of chronic kidney disease, glaucoma, hyperlipidemia. PAST SURGICAL HISTORY: Significant for left kidney removed, hysterectomy, back surgery. SOCIAL HISTORY: Does not smoke. No alcohol, no recreational drugs. FAMILY HISTORY: Hypertension. CURRENT MEDICATIONS: On the chart. REVIEW OF SYSTEMS: Significant for malfunctioning left AV graft. Slight shortness of breath present on close questioning. Otherwise, review of systems negative. PHYSICAL EXAMINATION: GENERAL: On examination, elderly female, cooperative during examination. VITAL SIGNS: Blood pressure is 145/43, temperature is 97.8, pulse is 85, and respirations 22. HEENT: Unremarkable. Pupils are equal and reactive. NECK: Supple, no lymphadenopathy, no thyromegaly. LUNGS: Clear to auscultation and percussion. Good air entry. CARDIOVASCULAR: S1, S2 heard. No gallop, no murmur, no rub. Apical impulse in left fifth intercostal space and midclavicular line. ABDOMEN: Soft and benign. No hepatosplenomegaly. No guarding, no rigidity. Hernial orifices are normal. EXTREMITIES: Left AV fistula. No thrill. CENTRAL NERVOUS SYSTEM: Normal. SKIN: Normal. LABORATORY DATA: Significant for normal CBC, potassium of 5.4, BUN and creatinine are 72 and 2.3, and glucose is 250. ASSESSMENT AND PLAN: 1. Malfunctioning AV graft. Vascular Surgery consult requested. The patient to be taken to the OR for thrombectomy. 2. End-stage renal disease, requiring hemodialysis. The patient to be taken for dialysis after the thrombectomy. 3. Insulin-dependent diabetes. Continue insulin from the home and also coverage. 4. Hypertension. Continue Coreg and amlodipine. 5. Peripheral neuropathy. Continue gabapentin. 6. Glaucoma. Continue latanoprost and Cosopt eyedrops and also timolol eyedrops. 7. Deep venous thrombosis prophylaxis, heparin 5000 q.12 hours. 8. Hyperkalemia--Kayexalate given in ER JOB# [id number] VSM/NTS MTDD
[2018-09-23] MEDS: HumaLOG SUB-Q SCH ×4 (08:50→22:10)
[2018-09-23] MEDS ORDERED: KIONEX PO NR (09:38)
[2018-09-23] MEDS ORDERED: ZESTRIL PO SCH (10:00)
[2018-09-23] MEDS ORDERED: DORZOLAMIDE HCL OP SCH (10:00)
[2018-09-23] MEDS ORDERED: HCTZ PO SCH (10:00)
[2018-09-23] MEDS ORDERED: TIMOLOL MALEAT OP SCH (10:00)
[2018-09-23] MEDS ORDERED: NON-FORMULARY (Lisinopril/Hydrochlorothiazide [Zestoretic 20-25 Mg] 1 TAB) PO SCH (10:00)
--- NOTE | 2018-09-23 10:56 | Consultation ---
History of Present Illness - Reason for Consult Consult date: 09/23/18 end stage renal disease Requesting physician: LULU FLORES - History of Present Illness This is a 77 yo F with PMHx of hypertension, diabetes, complicated by neuropathy and nephropathy, peripheral vascular disease, history of nephrectomy, ESRD on HD on MWF schedule at [facility], who was sent to the ER since pt was not dialyzed since last Sat due to AVF malfunction. pt was scheduled for thrombectomy on 09/23. Patient denied any chest pain, shortness of breath, nausea or vomiting. Labs showed stable renal function with BUN/Cr at 57/1.9mg/dl along with hyperkalemia with K at 5.6. Renal consult is requested for management of ESRD/hyperkalemia. Past History Past Medical History: anemia, diabetes, ESRD, hypertension Past Surgical History: Other (AVF placement ) Social history: denies: smoking, alcohol abuse, prescription drug abuse, IV drug use Family history: hypertension Medications and Allergies Allergies Allergy/AdvReac Type Severity Reaction Status Date / Time methadone AdvReac Vomiting Verified 08/08/17 20:43 tramadol AdvReac Vomiting Verified 08/08/17 20:43 unknown Allergy Unknown Uncoded 08/08/17 20:43 Home Medications Medication Instructions Recorded Confirmed Last Taken Type Carvedilol [Coreg] 25 mg PO BID 01/19/15 08/10/17 06/20/16 History Pantoprazole Sodium [Protonix] 40 mg PO QDAY 01/19/15 08/10/17 06/20/16 History Dorzolamide HCl/Timolol Maleat 10 ml OP QDAY 09/19/16 08/10/17 Unknown History [Dorzolamide-Timolol Eye Drops] guaiFENesin [Robitussin] 100 mg PO Q6H PRN #1 bottle 07/08/17 08/10/17 Unknown Rx Haloperidol [Haldol] 5 mg PO Q6H PRN tablet 08/14/17 Unknown Rx Insulin NPH/Regular [NovoLIN 70/30] 4 unit SUB-Q BIDDIAB units 08/14/17 Unknown Rx Carvedilol [Coreg] 6.25 mg PO BID #60 tablet 05/22/18 Unknown Rx Dorzolamide/Timolol(Nf) 2-0.5% 1 drops OU BID bottle 05/22/18 Unknown Rx [Cosopt (Nf)] Epoetin Pradeep 10,000 Unit [Procrit] 10,000 unit IV RAJENDRA PRN vial 05/22/18 Unknown Rx Gabapentin [Neurontin] 300 mg PO BID #60 capsule 05/22/18 Unknown Rx Insulin Regular, Human [HumuLIN R] 0 units SUB-Q ACHS units 05/22/18 Unknown Rx Latanoprost 0.005% 1 drops OU QPM bottle 05/22/18 Unknown Rx Lisinopril/Hydrochlorothiazide 1 tab PO QDAY #30 tablet 05/22/18 Unknown Rx [Zestoretic 20-25 mg] Pravastatin Sodium [Pravachol] 40 mg PO HS #30 tablet 05/22/18 Unknown Rx amLODIPine [Norvasc] 10 mg PO DAILY #30 tablet 05/22/18 Unknown Rx hydroCHLOROthiazide [HCTZ] 25 mg PO QDAY tablet 05/22/18 Unknown Rx levoFLOXacin [Levaquin TAB] 500 mg PO Q48H #5 tablet 05/22/18 Unknown Rx Active Meds: Active Medications Acetaminophen (Tylenol) 650 mg PO Q4H PRN PRN Reason: Pain MILD(1-3)/Fever >100.5/ALVARADO Amlodipine Besylate (Norvasc) 10 mg PO DAILY [facility] Carvedilol (Coreg) 25 mg PO BID [facility] Last Admin: 09/23/18 04:18 Dose: 25 mg Documented by: Furosemide (Lasix) 40 mg PO QDAY [facility] Gabapentin (Neurontin) 300 mg PO BID [facility] Last Admin: 09/23/18 04:18 Dose: 300 mg Documented by: Haloperidol (Haldol) 5 mg PO Q6H PRN PRN Reason: Agitation Heparin Sodium (Porcine) (Heparin) 5,000 unit SUB-Q Q12HR [facility] Hydromorphone HCl (Dilaudid) 0.5 mg IV Q3H PRN PRN Reason: Pain , Severe (7-10) Insulin Human Isoph/Insulin Regular (Humulin 70/30) 4 unit SUB-Q BIDDIAB [facility] Last Admin: 09/23/18 08:50 Dose: Not Given Documented by: Insulin Human Lispro (Humalog) 0 unit SUB-Q ACHS [facility]; Protocol Last Admin: 09/23/18 08:50 Dose: Not Given Documented by: Latanoprost (Latanoprost 0.005%) 1 drops OU QPM [facility] Miscellaneous Medication (Dorzolamide/Timolol(Nf) 2-0.5%) 1 drops OU BID [facility] Ondansetron HCl (Zofran) 4 mg IV Q8H PRN PRN Reason: Nausea And Vomiting Oxycodone/Acetaminophen (Percocet 5/325) 1 tab PO Q6H PRN PRN Reason: Pain, Moderate (4-6) Pantoprazole Sodium (Protonix) 40 mg PO QDAY [facility] Pravastatin Sodium (Pravachol) 40 mg PO HS [facility] Sodium Chloride (Sodium Chloride Flush Syringe 10 Ml) 10 ml IV BID [facility] Sodium Chloride (Sodium Chloride Flush Syringe 10 Ml) 10 ml IV PRN PRN PRN Reason: LINE FLUSH Sodium Polystyrene Sulfonate (Kionex) 30 gm PO ONCE NR Stop: 09/23/18 13:00 Zolpidem Tartrate (Ambien) 5 mg PO QHS PRN PRN Reason: Insomnia Review of Systems All systems: negative Constitutional: fatigue, weakness Exam - Vital Signs Vital signs: Vital Signs Temp Pulse Resp BP Pulse Ox 97.3 F L 90 18 147/114 97 09/22/18 14:06 09/22/18 14:06 09/22/18 14:06 09/22/18 14:06 09/22/18 14:06 - General Appearance General appearance: appears stated age, chronically ill EENT: ATNC, PERRL, mucous membranes moist Neck: Present: neck supple Respiratory: Clear to Ascultation Heart: regular, S1S2 Gastrointestinal: Present: normoactive bowel sounds Integumentary: no rash, other (no pitting edema ) Neurologic: no focal deficit, alert and oriented x3, strength 5/5, CN 3-12 in tact Psychiatric: mood/affect appropriate, cooperative Results - Lab Results 09/23/18 05:36 09/23/18 05:36 Most recent lab results Calcium 9.2 mg/dL (8.4-10.2) 09/23/18 05:36 Phosphorus 3.10 mg/dL (2.5-4.5) 09/22/18 14:39 Magnesium 1.90 mg/dL (1.7-2.3) 09/22/18 14:39 Assessment and Plan - Patient Problems (1) Acute hyperkalemia Current Visit: Yes Status: Acute Plan to address problem: treat hyperkalemia medically with D50/IV insulin, Kayexalate. will hold lisinopril and start lasix 40mg po qd for further kaliuretic effect. cont 2g K renal diet. (2) Chronic kidney disease, stage 4 (severe) Current Visit: Yes Status: Acute Plan to address problem: pt with preserved renal function despite not being dialyzed for about 1 week. will monitor volume status and renal parameters off HD for now and assess further signs of renal recovery. (3) Anemia in chronic kidney disease Current Visit: No Status: Acute Plan to address problem: Hb at target no need for EPO (4) HTN (hypertension) Current Visit: No Status: Acute Plan to address problem: BP controlled on current meds (5) Type 2 diabetes mellitus with diabetic nephropathy Current Visit: No Status: Acute Plan to address problem: glucose control as per primary attending
[2018-09-23] MEDS: PROTONIX PO SCH (11:09)
[2018-09-23] MEDS: HEPARIN SUB-Q SCH ×2 (11:10→21:33)
[2018-09-23] MEDS: SODIUM CHLORIDE FLUSH SYRINGE 10 ML IV SCH ×2 (11:11→21:34)
[2018-09-23] MEDS: NORVASC PO SCH (11:11)
--- NOTE | 2018-09-23 11:58 | Progress Note ---
Assessment and Plan Assessment and plan: Patient is a 77 year old female admitted with malfunctioning AV fistula of the left upper ext. Patients last dialysis was 09/17/18. She denies any chest pain, nausea, or vomiting. Left Upper ext Malfunction: planned for thrombectomy today. ESRD: Dialysis following Thombectomy Hyperkalemia: Kayxalate ordered, will recheck DM with hyper glycemia: Continue insulin and accucheck, resume consistent carb diet following procedure HTN: continue current management Peripheral neuropathy: Continue gabapentin Glaucoma: stable continue current management DVT/GI prophy History Interval history: Patient seen and examined, no new complaints this am. Denies any chest pain, nausea and vomiting. Hospitalist Physical - Constitutional Vitals: Temp Pulse Resp BP Pulse Ox 97.6 F 78 18 166/64 95 09/23/18 02:26 09/23/18 11:11 09/23/18 07:41 09/23/18 11:11 09/23/18 11:06 General appearance: Present: no acute distress, well-nourished - EENT Eyes: Present: PERRL, EOM intact - Neck Neck: Present: supple, normal ROM - Respiratory Respiratory effort: normal Respiratory: bilateral: diminished - Cardiovascular Rhythm: regularly irregular Heart Sounds: Present: S1 & S2. Absent: systolic murmur, diastolic murmur - Extremities Extremities: pulses symmetrical (No thrills in upper ext), normal color, abnormal Peripheral Pulses: within normal limits - Abdominal General gastrointestinal: deferred, soft, non-tender, non-distended, normal bowel sounds Localized gastrointestinal: rebound: diffuse - Integumentary Integumentary: Present: clear, warm, dry - Psychiatric Psychiatric: appropriate mood/affect - Neurologic Neurologic: CNII-XII intact, gait normal - Allied Health Allied health notes reviewed: nursing Results - Labs CBC & Chem 7: 09/23/18 05:36 09/23/18 05:36 Labs: Laboratory Last Values WBC 4.8 K/mm3 (4.5-11.0) 09/23/18 05:36 RBC 3.90 M/mm3 (3.65-5.03) 09/23/18 05:36 Hgb 12.1 gm/dl (10.1-14.3) 09/23/18 05:36 Hct 35.9 % (30.3-42.9) 09/23/18 05:36 MCV 92 fl (79-97) 09/23/18 05:36 MCH 31 pg (28-32) 09/23/18 05:36 MCHC 34 % (30-34) 09/23/18 05:36 RDW 16.1 % (13.2-15.2) H 09/23/18 05:36 Plt Count 149 K/mm3 (140-440) 09/23/18 05:36 Lymph % (Auto) 39.7 % (13.4-35.0) H 09/23/18 05:36 Bladen % (Auto) 6.4 % (0.0-7.3) 09/23/18 05:36 Eos % (Auto) 4.0 % (0.0-4.3) 09/23/18 05:36 Baso % (Auto) 0.8 % (0.0-1.8) 09/23/18 05:36 Lymph # 1.9 K/mm3 (1.2-5.4) 09/23/18 05:36 Bladen # 0.3 K/mm3 (0.0-0.8) 09/23/18 05:36 Eos # 0.2 K/mm3 (0.0-0.4) 09/23/18 05:36 Baso # 0.0 K/mm3 (0.0-0.1) 09/23/18 05:36 Seg Neutrophils % 49.1 % (40.0-70.0) 09/23/18 05:36 Seg Neutrophils # 2.3 K/mm3 (1.8-7.7) 09/23/18 05:36 PT 14.0 Sec. (12.2-14.9) 09/22/18 14:58 INR 1.02 (0.87-1.13) 09/22/18 14:58 APTT 22.6 Sec. (24.2-36.6) L 09/22/18 14:58 Sodium 144 mmol/L (137-145) 09/23/18 05:36 Potassium 5.6 mmol/L (3.6-5.0) H 09/23/18 05:36 Chloride 106.4 mmol/L (98-107) 09/23/18 05:36 Carbon Dioxide 24 mmol/L (22-30) 09/23/18 05:36 Anion Gap 19 mmol/L 09/23/18 05:36 BUN 57 mg/dL (7-17) H 09/23/18 05:36 Creatinine 1.9 mg/dL (0.7-1.2) H 09/23/18 05:36 Estimated GFR 31 ml/min 09/23/18 05:36 BUN/Creatinine Ratio 30 % 09/23/18 05:36 Glucose 280 mg/dL (65-100) H 09/23/18 05:36 POC Glucose 213 (70-105) H 09/23/18 11:35 Hemoglobin A1c 9.3 % (4-6) H 09/23/18 05:36 Calcium 9.2 mg/dL (8.4-10.2) 09/23/18 05:36 Phosphorus 3.10 mg/dL (2.5-4.5) 09/22/18 14:39 Magnesium 1.90 mg/dL (1.7-2.3) 09/22/18 14:39 Total Bilirubin 0.20 mg/dL (0.1-1.2) 09/23/18 05:36 AST 61 units/L (5-40) H 09/23/18 05:36 ALT 41 units/L (7-56) 09/23/18 05:36 Alkaline Phosphatase 210 units/L (35-129) H 09/23/18 05:36 Total Protein 7.4 g/dL (6.3-8.2) 09/23/18 05:36 Albumin 4.1 g/dL (3.9-5) 09/23/18 05:36 Albumin/Globulin Ratio 1.2 % 09/23/18 05:36
[2018-09-23] MEDS ORDERED: HEPARIN/NS 5000 UNIT/500ML(CATH LAB) 1,000 ML IR ONE (12:19)
[2018-09-23] MEDS ORDERED: XYLOCAINE 2% INFILTRATI ONE (12:20)
[2018-09-23] MEDS ORDERED: NACL 0.9% 250ML 250 ML ONE (12:20)
[2018-09-23] MEDS ORDERED: ANCEF/STERILE WATER 2 GM/20 ML 2 GM/20 ML SYRINGE IV ONE (12:38)
[2018-09-23] MEDS: VERSED ONE ×2 (12:39→13:19)
[2018-09-23] MEDS: SUBLIMAZE ONE ×2 (12:39→13:18)
[2018-09-23] MEDS: HEPARIN 10,000 UNITS/10 ML ONE ×2 (12:49→13:18)
--- NOTE | 2018-09-23 13:49 | Operative Report ---
Operative Report Operative Report: Operative note: Date: 09/23/2018 Preoperative diagnosis: Malfunctioning left arm AV access Postoperative diagnosis: Same. Operation: Left arm fistulogram, angioplasty of cephalic vein, angioplasty of arterial anastomosis. Surgeon: Leola Stahl. Asst.: none Anesthesia: moderate sedation EBL: minimal Findings: Cephalic vein has multiple stents that continue from cephalic arch into cephalic vein was small gap between them. At the end of procedure palpable thrill. Indications: 77-year-old female was missed dialysis session due to "pulling clots ". She came to the hospital and was scheduled for fistulogram. All risks, benefits and alternatives procedure were discussed with patient and her . Patient understood and signed informed consent. Operative details: Patient was brought to the [employer] [employer] Consultant and placed in supine position. Her left arm was prepped and draped in sterile fashion. Timeout was performed. Patient was initially accessed in retrograde fashion in the venous direction with micropuncture needle unchanged micropuncture sheath. J-wire was advanced proximally without any difficulty and multiple branches were changed O6 Bulgarian access sheath. Patient was performed showing diffuse in-stent stenosis. 8 x 60 Pilger balloon was used for balloon angioplasty protocol stented cephalic vein. Through multiple inflations 1 minute each. There was improvement was about 20% diffuse residual stenosis. Reflux was done showing some stenosis at the arterial anastomosis. Patient was accessed with micropuncture technique the worth arterial site. Glidewire was advanced proximally into brachial artery and micropuncture she's was exchanged to 6 Bulgarian sheath. I used a 5 x 40 ever Flex balloon and performed angioplasty of the perianastomotic portion of the vein. At the completion of procedure there was palpable thrill. At the sites were sutured was 4-0 chromic [id number] stitch. Patient tolerated procedure well and was transferred back in stable condition.
[2018-09-23] MEDS: LASIX PO SCH (15:29)
[2018-09-23] MEDS: LATANOPROST 0.005% OU SCH (17:20)
[2018-09-23] MEDS ORDERED: KIONEX PO ONE (20:45)
[2018-09-23] MEDS: PRAVACHOL PO SCH (21:34)
[2018-09-24] MEDS: HumaLOG SUB-Q SCH ×4 (08:21→22:20)
[2018-09-24] MEDS: SODIUM CHLORIDE FLUSH SYRINGE 10 ML IV SCH ×2 (09:17→22:23)
[2018-09-24] MEDS: NEURONTIN PO SCH ×2 (09:17→22:22)
[2018-09-24] MEDS: PROTONIX PO SCH (09:17)
[2018-09-24] MEDS: HEPARIN SUB-Q SCH ×2 (09:17→22:22)
[2018-09-24] MEDS: LASIX PO SCH (09:17)
[2018-09-24] MEDS: NORVASC PO SCH (09:21)
[2018-09-24] MEDS: COREG PO SCH ×2 (09:21→22:22)
--- NOTE | 2018-09-24 10:47 | Progress Note ---
Assessment and Plan - Patient Problems (1) Acute hyperkalemia Current Visit: Yes Status: Acute Plan to address problem: s/p medical treatment with with D50/IV insulin, Kayexalate. cont hold lisinopril, started lasix 40mg po qd for further kaliuretic effect. cont 2g K renal diet. (2) Chronic kidney disease, stage 4 (severe) Current Visit: Yes Status: Acute Plan to address problem: pt with preserved renal function despite not being dialyzed for about 1 week. will monitor volume status and renal parameters off HD for now and assess further signs of renal recovery. check 24h CrCl. if eGFR remains >20mls/min pt can be discharged off HD with close outpatient f/u (3) Anemia in chronic kidney disease Current Visit: No Status: Acute Plan to address problem: Hb at target no need for EPO (4) HTN (hypertension) Current Visit: No Status: Acute Plan to address problem: BP controlled on current meds (5) Type 2 diabetes mellitus with diabetic nephropathy Current Visit: No Status: Acute Plan to address problem: glucose control as per primary attending Subjective Date of service: 09/24/18 Principal diagnosis: ESRD Interval history: Pt awake alert, in no acute distress, 24hr CrCl pending Objective - Vital Signs Vital signs: Vital Signs - 12hr 09/24/18 09/24/18 09/24/18 03:12 07:45 09:20 Temperature 97.9 F 98.2 F Pulse Rate 80 86 Pulse Rate [ From Monitor] Respiratory 20 18 Rate Blood Pressure 115/47 162/68 149/63 O2 Sat by Pulse 96 97 Oximetry 09/24/18 09/24/18 09:21 10:00 Temperature Pulse Rate 86 87 Pulse Rate [ 87 From Monitor] Respiratory 18 Rate Blood Pressure 149/63 O2 Sat by Pulse 97 Oximetry - General Appearance General appearance: well-developed, well-nourished, appears stated age EENT: ATNC, PERRL, mucous membranes moist Neck: no JVD Respiratory: Present: Clear to Ascultation Cardiology: regular, S1S2 Gastrointestinal: normoactive bowel sounds Integumentary: no rash, other (no edema ) Neurologic: no focal deficit, alert and oriented x3, strength 5/5, CN 3-12 intact Psychiatric: mood/affect appropriate, cooperative - Lab 09/23/18 05:36 09/23/18 05:36 Most recent lab results Calcium 9.2 mg/dL (8.4-10.2) 09/23/18 05:36 Phosphorus 3.10 mg/dL (2.5-4.5) 09/22/18 14:39 Magnesium 1.90 mg/dL (1.7-2.3) 09/22/18 14:39 Medications & Allergies - Medications Allergies/Adverse Reactions: Allergies methadone Adverse Reaction (Verified 08/08/17 20:43) Vomiting tramadol Adverse Reaction (Verified 08/08/17 20:43) Vomiting unknown Allergy (Uncoded 08/08/17 20:43) Unknown PT DOES NOT NAME OR TYPE OF MEDICATION THAT SHE IS ALLERGIC TO. Home Medications: Home Medications Medication Instructions Recorded Confirmed Last Taken Type Carvedilol [Coreg] 25 mg PO BID 01/19/15 08/10/17 06/20/16 History Pantoprazole Sodium [Protonix] 40 mg PO QDAY 01/19/15 08/10/17 06/20/16 History Dorzolamide HCl/Timolol Maleat 10 ml OP QDAY 09/19/16 08/10/17 Unknown History [Dorzolamide-Timolol Eye Drops] guaiFENesin [Robitussin] 100 mg PO Q6H PRN #1 bottle 07/08/17 08/10/17 Unknown Rx Haloperidol [Haldol] 5 mg PO Q6H PRN tablet 08/14/17 Unknown Rx Insulin NPH/Regular [NovoLIN 70/30] 4 unit SUB-Q BIDDIAB units 08/14/17 Unknown Rx Carvedilol [Coreg] 6.25 mg PO BID #60 tablet 05/22/18 Unknown Rx Dorzolamide/Timolol(Nf) 2-0.5% 1 drops OU BID bottle 05/22/18 Unknown Rx [Cosopt (Nf)] Epoetin Pradeep 10,000 Unit [Procrit] 10,000 unit IV RAJENDRA PRN vial 05/22/18 Unknown Rx Gabapentin [Neurontin] 300 mg PO BID #60 capsule 05/22/18 Unknown Rx Insulin Regular, Human [HumuLIN R] 0 units SUB-Q ACHS units 05/22/18 Unknown Rx Latanoprost 0.005% 1 drops OU QPM bottle 05/22/18 Unknown Rx Lisinopril/Hydrochlorothiazide 1 tab PO QDAY #30 tablet 05/22/18 Unknown Rx [Zestoretic 20-25 mg] Pravastatin Sodium [Pravachol] 40 mg PO HS #30 tablet 05/22/18 Unknown Rx amLODIPine [Norvasc] 10 mg PO DAILY #30 tablet 05/22/18 Unknown Rx hydroCHLOROthiazide [HCTZ] 25 mg PO QDAY tablet 05/22/18 Unknown Rx levoFLOXacin [Levaquin TAB] 500 mg PO Q48H #5 tablet 05/22/18 Unknown Rx Active Medications: Generic Name Dose Route Start Last Admin Trade Name Freq PRN Reason Stop Dose Admin Acetaminophen 650 mg 09/23/18 02:32 Tylenol PO Q4H PRN Pain MILD(1-3)/Fever >100.5/ALVARADO Amlodipine Besylate 10 mg 09/23/18 10:00 09/24/18 09:21 Norvasc PO 10 mg DAILY MUNA Administration Carvedilol 25 mg 09/23/18 03:00 09/24/18 09:21 Coreg PO 25 mg BID MUNA Administration Furosemide 40 mg 09/23/18 11:00 09/24/18 09:17 Lasix PO 40 mg QDAY MUNA Administration Gabapentin 300 mg 09/23/18 03:00 09/24/18 09:17 Neurontin PO 300 mg BID MUNA Administration Haloperidol 5 mg 09/23/18 02:29 Haldol PO Q6H PRN Agitation Heparin Sodium (Porcine) 5,000 unit 09/23/18 10:00 09/24/18 09:17 Heparin SUB-Q 5,000 unit Q12HR MUNA Administration Hydromorphone HCl 0.5 mg 09/23/18 02:32 Dilaudid IV Q3H PRN Pain , Severe (7-10) Insulin Human Isoph/Insulin Regular 4 unit 09/23/18 08:00 09/24/18 08:20 Humulin 70/30 SUB-Q 4 unit BIDDIAB MUNA Administration Insulin Human Lispro 0 unit 09/23/18 07:30 09/24/18 08:21 Humalog SUB-Q Not Given ACHS [facility] Protocol Latanoprost 1 drops 09/23/18 18:00 09/23/18 17:20 Latanoprost 0.005% OU 1 drops QPM MUNA Administration Miscellaneous Medication 1 drops 09/23/18 02:30 Dorzolamide/Timolol(Nf) 2-0.5% OU BID MUNA Ondansetron HCl 4 mg 09/23/18 02:32 Zofran IV Q8H PRN Nausea And Vomiting Oxycodone/Acetaminophen 1 tab 09/23/18 02:32 Percocet 5/325 PO Q6H PRN Pain, Moderate (4-6) Pantoprazole Sodium 40 mg 09/23/18 10:00 09/24/18 09:17 Protonix PO 40 mg QDAY MUNA Administration Pravastatin Sodium 40 mg 09/23/18 22:00 09/23/18 21:34 Pravachol PO 40 mg HS MUNA Administration Sodium Chloride 10 ml 09/23/18 10:00 09/24/18 09:17 Sodium Chloride Flush Syringe 10 Ml IV 10 ml BID MUNA Administration Sodium Chloride 10 ml 09/23/18 02:32 Sodium Chloride Flush Syringe 10 Ml IV PRN PRN LINE FLUSH Zolpidem Tartrate 5 mg 09/23/18 02:32 Ambien PO QHS PRN Insomnia
--- NOTE | 2018-09-24 11:47 | Progress Note ---
Assessment and Plan Assessment and plan: Patient is a 77 year old female admitted with malfunctioning AV fistula of the left upper ext. Patients last dialysis was 09/17/18. She denies any chest pain, nausea, or vomiting. Left Upper ext Malfunction: planned for thrombectomy today. ESRD: Dialysis following Thombectomy. Renal holding dialysis and monitoring 24hr CrCl Hyperkalemia: Kayxalate Given. Resolved DM with hyper glycemia: Continue insulin and accucheck, resume consistent carb diet following procedure HTN: continue current management Peripheral neuropathy: Continue gabapentin Glaucoma: stable continue current management DVT/GI prophy History Interval history: Patient seen and examined, no new complaints this am. Denies any chest pain, nausea and vomiting. PER RENAL UNDERGOING 24 HR URINE COLLECTION Hospitalist Physical - Physical exam Narrative exam: VITAL SIGNS: Reviewed. GENERAL: The patient appeared well nourished and normally developed. Vital sign s as documented. HEAD: No signs of head trauma. EYES: Pupils are equal. Extraocular motions intact. EARS: Hearing grossly intact. MOUTH: Oropharynx is normal. NECK: No adenopathy, no JVD. CHEST: Chest with clear breath sounds bilaterally. No wheezes, rales, or rhonchi. CARDIAC: Regular rate and rhythm. S1 and S2, without murmurs, gallops, or rubs. VASCULAR: LEFT UPPER EXT FISTULA, WITH THRILLS No Edema. Peripheral pulses normal and equal in all extremities. ABDOMEN: Soft, without detectable tenderness. No sign of distention. No rebound or guarding, and no masses palpated. Bowel Sounds normal. MUSCULOSKELETAL: Good range of motion of all major joints. Extremities without clubbing, cyanosis or edema. NEUROLOGIC EXAM: Alert and oriented x 3. No focal sensory or strength deficits. Speech normal. Follows commands. PSYCHIATRIC: Mood normal. SKIN: No rash or lesions. - Constitutional Vitals: Temp Pulse Resp BP Pulse Ox 98.2 F 87 18 149/63 97 09/24/18 07:45 09/24/18 10:00 09/24/18 10:00 09/24/18 09:21 09/24/18 10:00 General appearance: Present: no acute distress, well-nourished Results - Labs CBC & Chem 7: 09/24/18 12:22 09/24/18 12:22 Labs: Laboratory Last Values WBC 4.8 K/mm3 (4.5-11.0) 09/23/18 05:36 RBC 3.90 M/mm3 (3.65-5.03) 09/23/18 05:36 Hgb 12.1 gm/dl (10.1-14.3) 09/23/18 05:36 Hct 35.9 % (30.3-42.9) 09/23/18 05:36 MCV 92 fl (79-97) 09/23/18 05:36 MCH 31 pg (28-32) 09/23/18 05:36 MCHC 34 % (30-34) 09/23/18 05:36 RDW 16.1 % (13.2-15.2) H 09/23/18 05:36 Plt Count 149 K/mm3 (140-440) 09/23/18 05:36 Lymph % (Auto) 39.7 % (13.4-35.0) H 09/23/18 05:36 Wise % (Auto) 6.4 % (0.0-7.3) 09/23/18 05:36 Eos % (Auto) 4.0 % (0.0-4.3) 09/23/18 05:36 Baso % (Auto) 0.8 % (0.0-1.8) 09/23/18 05:36 Lymph # 1.9 K/mm3 (1.2-5.4) 09/23/18 05:36 Wise # 0.3 K/mm3 (0.0-0.8) 09/23/18 05:36 Eos # 0.2 K/mm3 (0.0-0.4) 09/23/18 05:36 Baso # 0.0 K/mm3 (0.0-0.1) 09/23/18 05:36 Seg Neutrophils % 49.1 % (40.0-70.0) 09/23/18 05:36 Seg Neutrophils # 2.3 K/mm3 (1.8-7.7) 09/23/18 05:36 PT 14.0 Sec. (12.2-14.9) 09/22/18 14:58 INR 1.02 (0.87-1.13) 09/22/18 14:58 APTT 22.6 Sec. (24.2-36.6) L 09/22/18 14:58 Sodium 144 mmol/L (137-145) 09/23/18 05:36 Potassium 5.6 mmol/L (3.6-5.0) H 09/23/18 05:36 Chloride 106.4 mmol/L (98-107) 09/23/18 05:36 Carbon Dioxide 24 mmol/L (22-30) 09/23/18 05:36 Anion Gap 19 mmol/L 09/23/18 05:36 BUN 57 mg/dL (7-17) H 09/23/18 05:36 Creatinine 1.9 mg/dL (0.7-1.2) H 09/23/18 05:36 Estimated GFR 31 ml/min 09/23/18 05:36 BUN/Creatinine Ratio 30 % 09/23/18 05:36 Glucose 280 mg/dL (65-100) H 09/23/18 05:36 POC Glucose 229 (70-105) H 09/24/18 11:26 Hemoglobin A1c 9.3 % (4-6) H 09/23/18 05:36 Calcium 9.2 mg/dL (8.4-10.2) 09/23/18 05:36 Phosphorus 3.10 mg/dL (2.5-4.5) 09/22/18 14:39 Magnesium 1.90 mg/dL (1.7-2.3) 09/22/18 14:39 Total Bilirubin 0.20 mg/dL (0.1-1.2) 09/23/18 05:36 AST 61 units/L (5-40) H 09/23/18 05:36 ALT 41 units/L (7-56) 09/23/18 05:36 Alkaline Phosphatase 210 units/L (35-129) H 09/23/18 05:36 Total Protein 7.4 g/dL (6.3-8.2) 09/23/18 05:36 Albumin 4.1 g/dL (3.9-5) 09/23/18 05:36 Albumin/Globulin Ratio 1.2 % 09/23/18 05:36
[2018-09-24 13:07] LABS: Albumin 3.6 g/dL (3.9-5); Calcium 8.6 mg/dL (8.4-10.2)
[2018-09-24 14:09] LABS: Hematocrit 36.5 % (30.3-42.9); Hemoglobin 12.2 gm/dl (10.1-14.3); Mean Corpuscular HGB Conc 34 % (30-34); Mean Corpuscular Volume 92 fl (79-97); Platelet Count 153 K/mm3 (140-440); Red Blood Count 3.97 M/mm3 (3.65-5.03); Red Cell Distribution Width 16.1 % (13.2-15.2)
[2018-09-24 14:10] LABS: Mean Platelet Volume 9.5 fl (6-12)
[2018-09-24] MEDS: LATANOPROST 0.005% OU SCH (17:23)
[2018-09-24 19:33] LABS: Creatinine 24 Hour,Urine 0.9 (0.8-2.8); Creatinine,Urine 92.3 mg/dL (0.1-20.0)
[2018-09-24] MEDS: PRAVACHOL PO SCH (22:21)
[2018-09-25] MEDS: HumaLOG SUB-Q SCH ×2 (09:16→13:00)
[2018-09-25] MEDS: COREG PO SCH (09:44)
[2018-09-25] MEDS: LASIX PO SCH (09:44)
[2018-09-25] MEDS: HEPARIN SUB-Q SCH (09:44)
[2018-09-25] MEDS: PROTONIX PO SCH (09:44)
[2018-09-25] MEDS: NEURONTIN PO SCH (09:44)
[2018-09-25] MEDS: NORVASC PO SCH (09:44)
[2018-09-25 10:11] LABS: Calcium 8.4 mg/dL (8.4-10.2)
--- NOTE | 2018-09-25 10:27 | Discharge Summary ---
Providers - Providers Date of Admission: 09/22/18 18:08 Attending physician: MICKY EMMANUEL MD 09/22/18 16:57 Consult to Physician [CONS] Stat Comment: Consulting Provider: FRED ELDRIDGE Physician Instructions: Reason For Exam: ESRD, DIALYSIS ACCESS FAILURE 09/22/18 17:38 Consult to Physician [CONS] Stat Comment: Consulting Provider: SANGEETA VOSS Physician Instructions: Reason For Exam: ESRD ON HD, ACCESS MALFUNCTION [facility] Reason for admission: malfunctioning av fistula Condition: Stable Hospital course: Patient is a 77 year old female admitted with malfunctioning AV fistula of the left upper ext. Patients last dialysis was 09/17/18. She denies any chest pain, nausea, or vomiting. Left Upper ext Malfunction: Had thrombectomy based on findings of renal function, Manager Membership recommending hold off dialysis for now and will follow outpatient. ESRD: Dialysis following Thombectomy. Renal holding dialysis, patient had a 24 hr urine collection for creatnine clearance and will discuss with knitting machine fixer outpatient Hyperkalemia: Kayxalate Given. Resolved DM with hyper glycemia: Continue insulin and accucheck, resume consistent carb diet HTN: continue current management.acei and hctz held, knitting machine fixer will re- evaluate outpt. also will discuss result of the 24hr CrCL AND IF NEED BE, RESTART DIALYSIS Peripheral neuropathy: Continue gabapentine Glaucoma: stable continue current management findings and plans was discussed with patient and family in detail prior to disc harge. Disposition: - TO HOME OR SELFCARE Time spent for discharge: 35 MINS Core Measure Documentation - Palliative Care Palliative Care/ Comfort Measures: Not Applicable - Core Measures Any of the following diagnoses?: none Exam - Physical Exam Narrative exam: VITAL SIGNS: Reviewed. GENERAL: The patient appeared well nourished and normally developed. Vital signs as documented. HEAD: No signs of head trauma. EYES: Pupils are equal. Extraocular motions intact. EARS: Hearing grossly intact. MOUTH: Oropharynx is normal. NECK: No adenopathy, no JVD. CHEST: Chest with clear breath sounds bilaterally. No wheezes, rales, or rhonchi. CARDIAC: Regular rate and rhythm. S1 and S2, without murmurs, gallops, or rubs. VASCULAR: LEFT UPPER EXT FISTULA, WITH THRILLS No Edema. Peripheral pulses normal and equal in all extremities. ABDOMEN: Soft, without detectable tenderness. No sign of distention. No rebound or guarding, and no masses palpated. Bowel Sounds normal. MUSCULOSKELETAL: Good range of motion of all major joints. Extremities without clubbing, cyanosis or edema. NEUROLOGIC EXAM: Alert and oriented x 3. No focal sensory or strength deficits. Speech normal. Follows commands. PSYCHIATRIC: Mood normal. SKIN: No rash or lesions. - Constitutional Vitals: Temp Pulse Resp BP Pulse Ox 98.5 F 69 20 164/49 98 09/25/18 08:41 09/25/18 08:41 09/25/18 08:41 09/25/18 08:41 09/25/18 08:41 Plan Activity: advance as tolerated, fall precautions Diet: diabetic, renal Special Instructions: record daily BP diary, record blood sugar diary Follow up with: [facility] [Other] - 3-5 Days ELLE PARKS MD [Staff Physician] - 7 Days Prescriptions: Furosemide [Lasix TAB] 40 mg PO QDAY #30 tablet
[2018-09-25] MEDS: SODIUM CHLORIDE FLUSH SYRINGE 10 ML IV SCH (11:51)
--- NOTE | 2018-09-25 13:12 | Progress Note ---
Assessment and Plan - Patient Problems (1) Acute hyperkalemia Current Visit: Yes Status: Acute Plan to address problem: resolved s/p medical treatment with with D50/IV insulin, Kayexalate. cont hold lisinopril, started lasix 40mg po qd for further kaliuretic effect. cont 2g K renal diet. (2) Chronic kidney disease, stage 4 (severe) Current Visit: Yes Status: Acute Plan to address problem: pt with preserved renal function despite not being dialyzed for about 1 week. will monitor volume status and renal parameters off HD for now and assess further signs of renal recovery. eGFR remains >20mls/min, pt can be discharged off HD with close outpatient f/u in 1 week in our office (3) Anemia in chronic kidney disease Current Visit: No Status: Acute Plan to address problem: Hb at target no need for EPO (4) HTN (hypertension) Current Visit: No Status: Acute Plan to address problem: BP controlled on current meds (5) Type 2 diabetes mellitus with diabetic nephropathy Current Visit: No Status: Acute Plan to address problem: glucose control as per primary attending Subjective Date of service: 09/25/18 Principal diagnosis: ESRD Interval history: Pt awake alert, in no acute distress, 24hr CrCl pending Objective - Vital Signs Vital signs: Vital Signs - 12hr 09/25/18 09/25/18 09/25/18 02:09 08:41 10:00 Temperature 98.3 F 98.5 F Pulse Rate 75 69 78 Pulse Rate [ 69 From Monitor] Respiratory 20 20 Rate Blood Pressure 115/36 Blood Pressure 164/49 [Right] O2 Sat by Pulse 93 98 98 Oximetry 09/25/18 12:48 Temperature Pulse Rate 74 Pulse Rate [ From Monitor] Respiratory 20 Rate Blood Pressure Blood Pressure 116/61 [Right] O2 Sat by Pulse Oximetry - General Appearance General appearance: well-developed, well-nourished, appears stated age EENT: ATNC, PERRL, mucous membranes moist Neck: no JVD Respiratory: Present: Clear to Ascultation Cardiology: regular, S1S2 Gastrointestinal: normoactive bowel sounds Integumentary: no rash, other (no edema ) Neurologic: no focal deficit, alert and oriented x3, strength 5/5, CN 3-12 intact Psychiatric: mood/affect appropriate, cooperative - Lab 09/24/18 12:22 09/25/18 09:22 Most recent lab results Calcium 8.4 mg/dL (8.4-10.2) 09/25/18 09:22 Phosphorus 3.10 mg/dL (2.5-4.5) 09/22/18 14:39 Magnesium 1.90 mg/dL (1.7-2.3) 09/22/18 14:39 Urine Creatinine 92.3 mg/dL (0.1-20.0) H 09/24/18 Unknown Medications & Allergies - Medications Allergies/Adverse Reactions: Allergies methadone Adverse Reaction (Verified 08/08/17 20:43) Vomiting tramadol Adverse Reaction (Verified 08/08/17 20:43) Vomiting unknown Allergy (Uncoded 08/08/17 20:43) Unknown PT DOES NOT NAME OR TYPE OF MEDICATION THAT SHE IS ALLERGIC TO. Home Medications: Home Medications Medication Instructions Recorded Confirmed Last Taken Type Carvedilol [Coreg] 25 mg PO BID 01/19/15 09/24/18 06/20/16 History Pantoprazole Sodium [Protonix] 40 mg PO QDAY 01/19/15 09/24/18 06/20/16 History Dorzolamide HCl/Timolol Maleat 10 ml OP QDAY 09/19/16 09/24/18 Unknown History [Dorzolamide-Timolol Eye Drops] guaiFENesin [Robitussin] 100 mg PO Q6H PRN #1 bottle 07/08/17 09/24/18 Unknown Rx Haloperidol [Haldol] 5 mg PO Q6H PRN tablet 08/14/17 09/24/18 Unknown Rx Insulin NPH/Regular [NovoLIN 70/30] 4 unit SUB-Q BIDDIAB units 08/14/17 09/24/18 Unknown Rx Carvedilol [Coreg] 6.25 mg PO BID #60 tablet 05/22/18 09/24/18 Unknown Rx Dorzolamide/Timolol(Nf) 2-0.5% 1 drops OU BID bottle 05/22/18 09/24/18 Unknown Rx [Cosopt (Nf)] Epoetin Pradeep 10,000 Unit [Procrit] 10,000 unit IV RAJENDRA PRN vial 05/22/18 09/24/18 Unknown Rx Gabapentin [Neurontin] 300 mg PO BID #60 capsule 05/22/18 09/24/18 Unknown Rx Insulin Regular, Human [HumuLIN R] 0 units SUB-Q ACHS units 05/22/18 09/24/18 Unknown Rx Latanoprost 0.005% 1 drops OU QPM bottle 05/22/18 09/24/18 Unknown Rx Pravastatin Sodium [Pravachol] 40 mg PO HS #30 tablet 05/22/18 09/24/18 Unknown Rx amLODIPine [Norvasc] 10 mg PO DAILY #30 tablet 05/22/18 09/24/18 Unknown Rx Furosemide [Lasix TAB] 40 mg PO QDAY #30 tablet 09/25/18 Unknown Rx Active Medications: Generic Name Dose Route Start Last Admin Trade Name Freq PRN Reason Stop Dose Admin Acetaminophen 650 mg 09/23/18 02:32 Tylenol PO Q4H PRN Pain MILD(1-3)/Fever >100.5/ALVARADO Amlodipine Besylate 10 mg 09/23/18 10:00 09/25/18 09:44 Norvasc PO 10 mg DAILY MUNA Administration Carvedilol 25 mg 09/23/18 03:00 09/25/18 09:44 Coreg PO 25 mg BID MUNA Administration Furosemide 40 mg 09/23/18 11:00 09/25/18 09:44 Lasix PO 40 mg QDAY MUNA Administration Gabapentin 300 mg 09/23/18 03:00 09/25/18 09:44 Neurontin PO 300 mg BID MUNA Administration Haloperidol 5 mg 09/23/18 02:29 Haldol PO Q6H PRN Agitation Heparin Sodium (Porcine) 5,000 unit 09/23/18 10:00 09/25/18 09:44 Heparin SUB-Q 5,000 unit Q12HR MUNA Administration Hydromorphone HCl 0.5 mg 09/23/18 02:32 Dilaudid IV Q3H PRN Pain , Severe (7-10) Insulin Human Isoph/Insulin Regular 4 unit 09/23/18 08:00 09/25/18 09:23 Humulin 70/30 SUB-Q 4 unit BIDDIAB MUNA Administration Insulin Human Lispro 0 unit 09/23/18 07:30 09/25/18 13:00 Humalog SUB-Q 3 unit ACHS MUNA Administration Protocol Latanoprost 1 drops 09/23/18 18:00 09/24/18 17:23 Latanoprost 0.005% OU 1 drops QPM MUNA Administration Miscellaneous Medication 1 drops 09/23/18 02:30 Dorzolamide/Timolol(Nf) 2-0.5% OU BID MUNA Ondansetron HCl 4 mg 09/23/18 02:32 Zofran IV Q8H PRN Nausea And Vomiting Oxycodone/Acetaminophen 1 tab 09/23/18 02:32 Percocet 5/325 PO Q6H PRN Pain, Moderate (4-6) Pantoprazole Sodium 40 mg 09/23/18 10:00 09/25/18 09:44 Protonix PO 40 mg QDAY MUNA Administration Pravastatin Sodium 40 mg 09/23/18 22:00 09/24/18 22:21 Pravachol PO 40 mg HS MUNA Administration Sodium Chloride 10 ml 09/23/18 10:00 09/25/18 11:51 Sodium Chloride Flush Syringe 10 Ml IV 10 ml BID MUNA Administration Sodium Chloride 10 ml 09/23/18 02:32 Sodium Chloride Flush Syringe 10 Ml IV PRN PRN LINE FLUSH Zolpidem Tartrate 5 mg 09/23/18 02:32 Ambien PO QHS PRN Insomnia
[2018-09-25 14:59] VITALS: BP 113/54
[2018-09-25] MEDS ORDERED: K-DUR PO ONE (16:37)
== END 2018-09-25 15:40 | disposition home or self-care (01) | DRG 252 ==
LOC: ED 13:48 → 2B-ACE 18:08
PROVIDERS: ADMIT Internal Medicine; ATTEND Internal Medicine
PROC: B51NYZZ Fluoroscopy of Left Upper Extremity Veins using Other Contrast (ICD-10-PCS; principal; 2018-09-23)
PROC: 057F3ZZ Dilation of Left Cephalic Vein, Percutaneous Approach (ICD-10-PCS; 2018-09-23)
PROC: 03783ZZ Dilation of Left Brachial Artery, Percutaneous Approach (ICD-10-PCS; 2018-09-23)
PROC: B51W1ZZ Fluoroscopy of Dialysis Shunt/Fistula using Low Osmolar Contrast (ICD-10-PCS; 2018-09-23)
DX: T82.510A Breakdown (mechanical) of surgically created arteriovenous fistula, initial encounter (principal); N18.6 End stage renal disease; I13.2 Hypertensive heart and chronic kidney disease with heart failure and with stage 5 chronic kidney disease, or end stage renal disease; E87.5 Hyperkalemia; E11.65 Type 2 diabetes mellitus with hyperglycemia; E11.22 Type 2 diabetes mellitus with diabetic chronic kidney disease; E11.42 Type 2 diabetes mellitus with diabetic polyneuropathy; H40.9 Unspecified glaucoma; E87.70 Fluid overload, unspecified; I50.9 Heart failure, unspecified; D63.1 Anemia in chronic kidney disease; Y83.2 Surgical operation with anastomosis, bypass or graft as the cause of abnormal reaction of the patient, or of later complication, without mention of misadventure at the time of the procedure; Z99.2 Dependence on renal dialysis; Z82.49 Family history of ischemic heart disease and other diseases of the circulatory system; Z79.4 Long term (current) use of insulin; Z79.899 Other long term (current) drug therapy; Z90.710 Acquired absence of both cervix and uterus; Y92.89 Other specified places as the place of occurrence of the external cause
CPT/HCPCS: 36415; 36902; 80048; 80053; 82570; 82962; 83036; 83735; 84100; 85025; 85610; 85730; G0378; A9270-GY; C1725; C1769; C1894; J0690; J1644; J1815; J2250; J3010; J7050; Q9967

== ENCOUNTER 2018-11-19 09:55 | Inpatient (IN) | payer MEDICARE ==
[2018-11-19 10:40] LABS: Basophils % (Auto) 0.6 % (0.0-1.8); Eosinophils # (Auto) 0.2 K/mm3 (0.0-0.4); Hematocrit 33.6 % (30.3-42.9); Hemoglobin 11.2 gm/dl (10.1-14.3); Lymphocytes # (Auto) 1.4 K/mm3 (1.2-5.4); Lymphocytes % (Auto) 23.2 % (13.4-35.0); Mean Corpuscular HGB Conc 33 % (30-34); Mean Corpuscular Volume 94 fl (79-97); Monocytes # (Auto) 0.4 K/mm3 (0.0-0.8); Monocytes % (Auto) 5.9 % (0.0-7.3); Platelet Count 232 K/mm3 (140-440); Red Blood Count 3.57 M/mm3 (3.65-5.03)
[2018-11-19 11:14] LABS: Albumin 3.7 g/dL (3.9-5); Calcium 8.8 mg/dL (8.4-10.2)
--- NOTE | 2018-11-19 11:17 | Emergency Department Report ---
HPI - General Chief Complaint: Altered Mental Status Time Seen by Provider: 11/19/18 10:17 - HPI HPI: 77-year-old female presents to the emergency department from home with complaint of some altered mental status. The patient has a past medical history includes CHF, diabetes, end-stage renal disease, hypertension. Her machine turner is Dr. Dailey and her primary care physician is a Dr. Mckinney. The says that the patient was taken off dialysis about 2 weeks ago to "see how her kidneys do. Over the past few days the patient has been complaining of "feeling funny" and says that she is having trouble remembering things. Currently she is AAO [address] but not time. She has not taken anything for her symptoms prior to arrival. No recent travel or sick contacts at home. ED Past Medical Hx - Past Medical History Previous Medical History?: Yes Hx Hypertension: Yes Hx Heart Attack/AMI: No Hx Congestive Heart Failure: Yes Hx Diabetes: Yes Hx Deep Vein Thrombosis: No Hx Pulmonary Embolism: No Hx Liver Disease: No Hx Renal Disease: Yes (M,W,F) Hx Sickle Cell Disease: No Hx Arthritis: No Hx Seizures: No Hx Kidney Stones: No Hx Asthma: No Hx COPD: No Hx Tuberculosis: No Hx Dementia: No Hx HIV: No - Surgical History Past Surgical History?: Yes Hx Coronary Stent: No Hx Pacemaker: No Hx Internal Defibrillator: No Additional Surgical History: L kidney removed, Back surgery, Hysterectomy - Social History Smoking Status: Unknown if ever smoked Substance Use Type: None - Medications Home Medications: Home Medications Medication Instructions Recorded Confirmed Last Taken Type Pantoprazole Sodium [Protonix] 40 mg PO QAM 01/19/15 11/19/18 06/20/16 History Carvedilol [Coreg] 6.25 mg PO BID #60 tablet 05/22/18 11/19/18 Unknown Rx Pravastatin Sodium [Pravachol] 40 mg PO HS #30 tablet 05/22/18 11/19/18 Unknown Rx Furosemide [Lasix TAB] 40 mg PO DAILY 11/19/18 11/19/18 Unknown History L. Acidophilus/Bifid. Animalis 1 each PO DAILY 11/19/18 11/19/18 Unknown History [Dialyvite Chewable Probiotic] Lisinopril/Hydrochlorothiazide 1 tab PO DAILY 11/19/18 11/19/18 Unknown History [Zestoretic 20-25 mg] amLODIPine [Norvasc] 5 mg PO DAILY 11/19/18 11/19/18 Unknown History ED Review of Systems ROS: Stated complaint: SICK Other details as noted in HPI Comment: All other systems reviewed and negative Constitutional: denies: chills, fever Eyes: denies: eye pain, vision change ENT: denies: ear pain, throat pain Respiratory: shortness of breath. denies: cough Cardiovascular: denies: chest pain, palpitations Gastrointestinal: denies: abdominal pain, vomiting Genitourinary: denies: dysuria, discharge Musculoskeletal: denies: back pain, arthralgia Skin: denies: rash Neurological: confusion. denies: headache Physical Exam - Physical Exam Vital Signs: Vital Signs 11/19/18 10:08 Temperature 98.7 F Pulse Rate 71 Respiratory 16 Rate Blood Pressure 115/39 [Right] O2 Sat by Pulse 96 Oximetry Physical Exam: GENERAL: The patient is well-developed well-nourished. HENT: Normocephalic. Atraumatic. Patient has moist mucous membranes. EYES: Extraocular motions are intact. Pupils equal reactive to light bilaterally. NECK: Supple. Trachea is midline. CHEST/LUNGS: Clear to auscultation. There is no respiratory distress noted. HEART/CARDIOVASCULAR: Regular. There is no tachycardia. There is no murmur. ABDOMEN: Abdomen is soft, nontender. Patient has normal bowel sounds. There is no abdominal distention. SKIN: Skin is warm and dry. NEURO: The patient is awake and cooperative but confused. AAO [address] but not time. The patient has no focal neurologic deficits. The patient has normal speech. Cranial nerves II through XII grossly intact. MUSCULOSKELETAL: There is no tenderness or deformity. There appears to be a patent left upper extremity dialysis fistula. There is no evidence of acute injury. ED Course Vital Signs 11/19/18 10:08 Temperature 98.7 F Pulse Rate 71 Respiratory 16 Rate Blood Pressure 115/39 [Right] O2 Sat by Pulse 96 Oximetry ED Medical Decision Making - Lab Data Result diagrams: 11/19/18 10:23 11/19/18 10:23 - EKG Data -: EKG Interpreted by Me EKG shows normal: sinus rhythm, axis, intervals, QRS complexes, ST-T waves Rate: normal - EKG Data When compared to previous EKG there are: previous EKG unavailable Interpretation: normal EKG - Radiology Data Radiology results: report reviewed, image reviewed interpreted by me: Chest x-ray shows some mild pulmonary vascular congestion. CT HEAD WITHOUT CONTRAST INDICATION: Altered mental status. COMPARISON: 05/20/2018. FINDINGS: Noncontrast head CT again demonstrates normal ventricles and sulci. Mild periventricular hypodensities. Minimal benign bilateral basal ganglia calcifications. No definite acute infarct, hemorrhage, mass effect or midline shift. No abnormal extra-axial fluid collections. Normal posterior fossa with preserved basilar cisterns. Bilateral cataract surgery. Moderate to severe left maxillary sinus heterogeneous density/opacification again noted, possibly inspissated secretions versus fungal etiology. Clear remainder imaged paranasal sinuses and mastoid air cells. Extensive atherosclerotic ICA and vertebral artery calcifications. Normal calvarium and scalp. Edentulous mandible. CONCLUSION: No acute intracranial CT abnormality with extensive left maxillary sinus disease again noted, as described. Please correlate. Thank you for the opportunity to participate in this patient's care. Transcribed By: RS Dictated By: YASMIN NIEVES MD Electronically Authenticated By: YASMIN NIEVES MD Signed Date/Time: 11/19/18 1243 - Medical Decision Making Patient presents to the emergency department with some confusion and trouble wi th her memory. CT scan of the head did not show any bleed, shift, mass, ischemia or any other acute process. Labs show some of her chronic kidney disease along with some mild hyperkalemia. She was given some Kayexalate. Chest x-ray shows some mild pulmonary vascular congestion but the patient does not appear to be in any respiratory distress. However secondary to her recent altered mental status, the patient will be admitted to the hospital for further evaluation and treatment and was accepted for admission by the hospitalist, Dr. Alvarez. - Differential Diagnosis CVA, TIA, electrolyte abnormalities, CHF Critical Care Time: No Critical care attestation.: If time is entered above; I have spent that time in minutes in the direct care of this critically ill patient, excluding procedure time. ED Disposition Clinical Impression: Encephalopathy, Hyperkalemia Altered mental status Qualifiers: Altered mental status type: unspecified Qualified Code(s): R41.82 - Altered mental status, unspecified HTN (hypertension) Qualifiers: Hypertension type: essential hypertension Qualified Code(s): I10 - Essential (primary) hypertension Disposition: DC09 OP ADMIT IP TO THIS HOSP Is pt being admited?: Yes Condition: Fair Time of Disposition: 18:11
[2018-11-19] MEDS ORDERED: KIONEX PO ONE (11:31)
--- NOTE | 2018-11-19 12:07 | XRay Report ---
PORTABLE CHEST INDICATION: Shortness of breath. COMPARISON: 05/20/2018 FINDINGS: Portable, frontal chest radiograph suggests prominent perihilar haziness/possible congestion. No significant pleural effusions or overt CHF however. Mild cardiomegaly. Aortic knob calcifications. Right hemidiaphragm again approximately 3 cm higher than the left. Demineralized bones. EKG leads. Multiple new left axillary/upper arm stents. CONCLUSION: New left axillary/upper arm stents and slight central congestion possible in this patient with cardiomegaly and few other findings, as above. Please correlate. Thank you for the opportunity to participate in this patient's care.
--- NOTE | 2018-11-19 12:44 | Cat Scan Report ---
CT HEAD WITHOUT CONTRAST INDICATION: Altered mental status. COMPARISON: 05/20/2018. FINDINGS: Noncontrast head CT again demonstrates normal ventricles and sulci. Mild periventricular hypodensities. Minimal benign bilateral basal ganglia calcifications. No definite acute infarct, hemorrhage, mass effect or midline shift. No abnormal extra-axial fluid collections. Normal posterior fossa with preserved basilar cisterns. Bilateral cataract surgery. Moderate to severe left maxillary sinus heterogeneous density/opacification again noted, possibly inspissated secretions versus fungal etiology. Clear remainder imaged paranasal sinuses and mastoid air cells. Extensive atherosclerotic ICA and vertebral artery calcifications. Normal calvarium and scalp. Edentulous mandible. CONCLUSION: No acute intracranial CT abnormality with extensive left maxillary sinus disease again noted, as described. Please correlate. Thank you for the opportunity to participate in this patient's care.
--- NOTE | 2018-11-19 15:08 | History and Physical Report ---
History of Present Illness Chief complaint: She is confused, and not acting like herself History of present illness: 77 YO Female with DM, HTN, Dementia, Debility, ESRD on HD (Discontinued 2 weeks ago), CHF presents to ED for evaluation. Pt is confused and unable to provide detailed history. Pt history provided by her who is at bedside during exam and interview. Pt reports that patient has experienced worsening confusion, worsening short term memory loss, generalized weakness over the past 1 month with progressively worsening symptoms over the past 2 weeks. Pt is requires increased assistance with activities of daily living as well as increased verbal prompting and redirection. Pt transported to [facility] via private vehicle. Pt seen and evaluated in ED and found to have Encephalopathy, ARF, Hype rkalemia, and Sinusitis. Pt admitted to [facility] unit and initiated on IV antibiotic therapy. Nephrology consulted in ED. Prior admission on 09/22/18 reviewed. All listed medication reconciled at time of admission. Past History Past Medical History: diabetes, ESRD, heart failure, hypertension, other (Dementia, Debility) Past Surgical History: hysterectomy, Other (Left Nephrectomy) Social history: , lives with family. denies: smoking, alcohol abuse, prescription drug abuse, IV drug use Family history: diabetes, hypertension Medications and Allergies Allergies Allergy/AdvReac Type Severity Reaction Status Date / Time methadone AdvReac Vomiting Verified 08/08/17 20:43 tramadol AdvReac Vomiting Verified 08/08/17 20:43 unknown Allergy Unknown Uncoded 08/08/17 20:43 Home Medications Medication Instructions Recorded Confirmed Last Taken Type Pantoprazole Sodium [Protonix] 40 mg PO QAM 01/19/15 11/19/18 06/20/16 History Carvedilol [Coreg] 6.25 mg PO BID #60 tablet 05/22/18 11/19/18 Unknown Rx Pravastatin Sodium [Pravachol] 40 mg PO HS #30 tablet 05/22/18 11/19/18 Unknown Rx Furosemide [Lasix TAB] 40 mg PO DAILY 11/19/18 11/19/18 Unknown History L. Acidophilus/Bifid. Animalis 1 each PO DAILY 11/19/18 11/19/18 Unknown History [Dialyvite Chewable Probiotic] Lisinopril/Hydrochlorothiazide 1 tab PO DAILY 11/19/18 11/19/18 Unknown History [Zestoretic 20-25 mg] amLODIPine [Norvasc] 5 mg PO DAILY 11/19/18 11/19/18 Unknown History Review of Systems ROS unobtainable: due to mental status Exam - Constitutional Vitals: Temp Pulse Resp BP Pulse Ox 98.7 F 72 20 149/60 100 11/19/18 10:08 11/19/18 15:01 11/19/18 15:01 11/19/18 15:01 11/19/18 15:01 General appearance: Present: mild distress - EENT Eyes: Present: PERRL ENT: hearing intact, clear oral mucosa - Neck Neck: Present: supple, normal ROM - Respiratory Respiratory effort: normal Respiratory: bilateral: CTA - Cardiovascular Heart Sounds: Present: S1 & S2. Absent: rub, click - Extremities Extremities: pulses symmetrical, No edema Peripheral Pulses: within normal limits - Abdominal General gastrointestinal: Present: soft, non-tender, non-distended, normal bowel sounds Female genitourinary: Present: normal - Integumentary Integumentary: Present: clear, warm, dry - Musculoskeletal Musculoskeletal: generalized weakness - Psychiatric Psychiatric: no appropriate mood/affect, no intact judgment & insight, no memory intact - Neurologic Neurologic: CNII-XII intact, no focal deficits, moves all extremities, no gait normal Results - Labs CBC & Chem 7: 11/19/18 10:23 11/19/18 10:23 Labs: Abnormal lab results 11/19/18 11/19/18 11/19/18 Range/Units 10:23 10:23 10:23 RBC 3.57 L (3.65-5.03) M/mm3 Potassium 5.5 H (3.6-5.0) mmol/L BUN 29 H (7-17) mg/dL Creatinine 1.9 H (0.7-1.2) mg/dL Glucose 153 H (65-100) mg/dL Lactic Acid 0.40 L (0.7-2.0) mmol/L Alkaline Phosphatase 302 H (35-129) units/L Albumin 3.7 L (3.9-5) g/dL Assessment and Plan - Patient Problems (1) Encephalopathy Current Visit: Yes Status: Acute Plan to address problem: CT Head, neuro checks, seizure precautions, neuro check, aspiration precautions, fall precautions. (2) ARF (acute renal failure) Current Visit: No Status: Acute Qualifiers: Acute renal failure type: unspecified Qualified Code(s): N17.9 - Acute kidney failure, unspecified Plan to address problem: Nephrology consulted in ED, IVF resuscitation, monitor uop q shift, urine electrolytes, (3) Hyperkalemia Current Visit: No Status: Acute Plan to address problem: supportive care, kayexelate, repeat bmp to monitor serum potassium level (4) Sinusitis Current Visit: Yes Status: Acute Qualifiers: Sinusitis location: maxillary Plan to address problem: IV antibiotic therapy, CBC, CMP, CT head (5) Diastolic CHF Current Visit: Yes Status: Acute Qualifiers: Heart failure chronicity: chronic Qualified Code(s): I50.32 - Chronic diastolic (congestive) heart failure Plan to address problem: Strict I/O, daily weight, monitor uop q shift, afterload reduction, blood pressure control, (6) Dementia Current Visit: Yes Status: Acute Qualifiers: Alzheimer's disease onset: unspecified onset Plan to address problem: Initiate therapy with Aricept, neuro checks, supportive care. (7) DVT prophylaxis Current Visit: No Status: Acute Plan to address problem: SCD to BLE while in bed.
[2018-11-19] MEDS ORDERED: SODIUM CHLORIDE FLUSH SYRINGE 10 ML IV PRN (15:11)
[2018-11-19] MEDS ORDERED: TYLENOL PO PRN (15:11)
[2018-11-19] MEDS ORDERED: PROVENTIL IH PRN (15:11)
[2018-11-19] MEDS ORDERED: NON-FORMULARY (Lisinopril/Hydrochlorothiazide [Zestoretic 20-25 Mg] 1 TAB) PO SCH (15:48)
[2018-11-19] MEDS ORDERED: APRESOLINE IV PRN (15:50)
[2018-11-19] MEDS ORDERED: NACL 0.45% 500 ML IV SCH (16:00)
[2018-11-19] MEDS: HCTZ PO SCH (17:27)
[2018-11-19] MEDS: ZESTRIL PO SCH (17:28)
[2018-11-19] MEDS: PRAVACHOL PO SCH (21:55)
[2018-11-19] MEDS: ARICEPT PO SCH (21:56)
[2018-11-19] MEDS: COREG PO SCH (21:56)
[2018-11-19] MEDS: SODIUM CHLORIDE FLUSH SYRINGE 10 ML IV SCH (21:56)
[2018-11-20 06:32] LABS: Hematocrit 34.3 % (30.3-42.9); Hemoglobin 11.1 gm/dl (10.1-14.3); Mean Corpuscular HGB Conc 32 % (30-34); Mean Corpuscular Volume 93 fl (79-97); Red Blood Count 3.68 M/mm3 (3.65-5.03); Red Cell Distribution Width 13.9 % (13.2-15.2)
[2018-11-20 06:54] LABS: Calcium 8.7 mg/dL (8.4-10.2)
[2018-11-20] MEDS ORDERED: D50W (25GM) Syringe IV PRN (09:30)
[2018-11-20] MEDS: HCTZ PO SCH (09:35)
[2018-11-20] MEDS: PROTONIX PO SCH (09:35)
[2018-11-20] MEDS: ZESTRIL PO SCH (09:36)
[2018-11-20] MEDS: NORVASC PO SCH (09:36)
[2018-11-20] MEDS: COREG PO SCH ×2 (09:36→21:50)
[2018-11-20] MEDS: LASIX PO SCH (09:36)
[2018-11-20] MEDS: LEVAQUIN 250MG/50ML 250 MG/50 ML BAG IV SCH (09:37)
[2018-11-20] MEDS: SODIUM CHLORIDE FLUSH SYRINGE 10 ML IV SCH ×2 (09:38→21:48)
[2018-11-20] MEDS ORDERED: BIFID ANIMALIS PO SCH ×2 (10:00)
[2018-11-20] MEDS ORDERED: ACIDOPHILUS PO SCH ×2 (10:00)
[2018-11-20 10:52] LABS: Basophils % (Manual) 0 % (0.0-1.8); Platelet Estimate Consistent w Auto; RBC Morphology Normal; Total Cells Counted 100
[2018-11-20 10:59] LABS: Platelet Count 213 K/mm3 (140-440)
--- NOTE | 2018-11-20 11:33 | Progress Note ---
<CALVIN FIGUEROA - Last Filed: 11/20/18 17:00> Assessment and Plan Assessment and plan: 77 YO Female with DM, HTN, Dementia, Debility, ESRD on HD (Discontinued 2 weeks ago), CHF, DM2 with neuropathy, who presented to ED for evaluation. Pt is confused and unable to provide detailed history. Pt history provided by her who is at bedside during exam and interview. Pt reports that patient has experienced worsening confusion, worsening short term memory loss, generalized weakness over the past 1 month with progressively worsening symptoms over the past 2 weeks. Pt is requires increased assistance with activities of daily living as well as increased verbal prompting and redirection. Pt transported to [facility] via private vehicle. Pt seen and evaluated in ED and found to have Encephalopathy, ARF, Hyperkalemia, and Sinusitis. Pt admitted to [facility] unit and initiated on IV antibiotic therapy. Nephrology consulted in ED. Prior admission on 09/22/[address] head unrevealing for any acute intracranial CT abnormality with extensive, and showed left maxillary sinus disease . Acute Metabolic Encephalopthy EDRD- previously on HD; Lt AV fistula CKD3 Diastolic CHF Hyperkalemia Sinusitis Dementia DM 2 wit neuropathy Plan: POC BG Moniroting SSI and scheduled Lantus Monitor BP Continue antihypertensive medications to optimize BP Continue IV hydralazine prn Continue IV Levaquin Received kayexelate Monitor electrolytes Continue fall precautions Continue neuro checks Continue aspiration precautions Fluid restriction 1.5L per day Continue po Lasix Nephrology consulted DVT PPX on heparin History Interval history: Pt is seen on the [facility] unit. She has no complaints at this time. Pt is a poor historian and her is not at the bedside. She has generalized weakness. Note at baseline pt uses manual wheelchair. She denies cough, dyspnea, n/v/, and pain. Hospitalist Physical - Constitutional Vitals: Temp Pulse Resp BP Pulse Ox 98.7 F 89 20 169/69 92 11/20/18 07:30 11/20/18 10:00 11/20/18 07:30 11/20/18 09:36 11/20/18 10:00 General appearance: Present: no acute distress - EENT Eyes: Present: PERRL, EOM intact ENT: hearing intact, clear oral mucosa, poor dentition - Neck Neck: Present: supple, normal ROM - Respiratory Respiratory effort: normal Respiratory: bilateral: diminished - Cardiovascular Heart rate: 95 (bpm) Rhythm: regular Heart Sounds: Present: S1 & S2 - Extremities Extremities: pulses intact, abnormal (BAKARI AV fistula) Extremity abnormal: edema - Peripheral Assessment Lower Extremity Edema Type: Pitting Edema Degree: 1+ Skin Temperature: Warm - Abdominal General gastrointestinal: soft, non-tender, normal bowel sounds - Integumentary Integumentary: Present: warm, dry - Psychiatric Psychiatric: appropriate mood/affect, cooperative, other (poor historian) - Allied Health Allied health notes reviewed: nursing Results - Labs CBC & Chem 7: 11/20/18 06:04 11/20/18 06:04 Labs: Laboratory Last Values WBC 10.3 K/mm3 (4.5-11.0) 11/20/18 06:04 RBC 3.68 M/mm3 (3.65-5.03) 11/20/18 06:04 Hgb 11.1 gm/dl (10.1-14.3) 11/20/18 06:04 Hct 34.3 % (30.3-42.9) 11/20/18 06:04 MCV 93 fl (79-97) 11/20/18 06:04 MCH 30 pg (28-32) 11/20/18 06:04 MCHC 32 % (30-34) 11/20/18 06:04 RDW 13.9 % (13.2-15.2) 11/20/18 06:04 Plt Count 213 K/mm3 (140-440) 11/20/18 06:04 Lymph % (Auto) 23.2 % (13.4-35.0) 11/19/18 10:23 Waldo % (Auto) 5.9 % (0.0-7.3) 11/19/18 10:23 Eos % (Auto) 4.0 % (0.0-4.3) 11/19/18 10:23 Baso % (Auto) 0.6 % (0.0-1.8) 11/19/18 10:23 Lymph # 1.4 K/mm3 (1.2-5.4) 11/19/18 10:23 Waldo # 0.4 K/mm3 (0.0-0.8) 11/19/18 10:23 Eos # 0.2 K/mm3 (0.0-0.4) 11/19/18 10:23 Baso # 0.0 K/mm3 (0.0-0.1) 11/19/18 10:23 Add Manual Diff Complete 11/20/18 06:04 Total Counted 100 11/20/18 06:04 Seg Neutrophils % 66.3 % (40.0-70.0) 11/19/18 10:23 Seg Neuts % (Manual) 72.0 % (40.0-70.0) H 11/20/18 06:04 Band Neutrophils % 0 % 11/20/18 06:04 Lymphocytes % (Manual) 20.0 % (13.4-35.0) 11/20/18 06:04 Reactive Lymphs % (Man) 0 % 11/20/18 06:04 Monocytes % (Manual) 2.0 % (0.0-7.3) 11/20/18 06:04 Eosinophils % (Manual) 6.0 % (0.0-4.3) H 11/20/18 06:04 Basophils % (Manual) 0 % (0.0-1.8) 11/20/18 06:04 Metamyelocytes % 0 % 11/20/18 06:04 Myelocytes % 0 % 11/20/18 06:04 Promyelocytes % 0 % 11/20/18 06:04 Blast Cells % 0 % 11/20/18 06:04 Nucleated RBC % 1.0 % (0.0-0.9) H 11/20/18 06:04 Seg Neutrophils # 4.0 K/mm3 (1.8-7.7) 11/19/18 10:23 Seg Neutrophils # Man 7.4 K/mm3 (1.8-7.7) 11/20/18 06:04 Band Neutrophils # 0.0 K/mm3 11/20/18 06:04 Lymphocytes # (Manual) 2.1 K/mm3 (1.2-5.4) 11/20/18 06:04 Abs React Lymphs (Man) 0.0 K/mm3 11/20/18 06:04 Monocytes # (Manual) 0.2 K/mm3 (0.0-0.8) 11/20/18 06:04 Eosinophils # (Manual) 0.6 K/mm3 (0.0-0.4) H 11/20/18 06:04 Basophils # (Manual) 0.0 K/mm3 (0.0-0.1) 11/20/18 06:04 Metamyelocytes # 0.0 K/mm3 11/20/18 06:04 Myelocytes # 0.0 K/mm3 11/20/18 06:04 Promyelocytes # 0.0 K/mm3 11/20/18 06:04 Blast Cells # 0.0 K/mm3 11/20/18 06:04 WBC Morphology Not Reportable 11/20/18 06:04 Hypersegmented Neuts Not Reportable 11/20/18 06:04 Hyposegmented Neuts Not Reportable 11/20/18 06:04 Hypogranular Neuts Not Reportable 11/20/18 06:04 Smudge Cells Not Reportable 11/20/18 06:04 Toxic Granulation Not Reportable 11/20/18 06:04 Toxic Vacuolation Not Reportable 11/20/18 06:04 Dohle Bodies Not Reportable 11/20/18 06:04 Pelger-Huet Anomaly Not Reportable 11/20/18 06:04 Anastasiya Rods Not Reportable 11/20/18 06:04 Platelet Estimate Consistent w auto 11/20/18 06:04 Clumped Platelets Not Reportable 11/20/18 06:04 Plt Clumps, EDTA Not Reportable 11/20/18 06:04 Large Platelets Not Reportable 11/20/18 06:04 Giant Platelets Not Reportable 11/20/18 06:04 Platelet Satelliting Not Reportable 11/20/18 06:04 Plt Morphology Comment Not Reportable 11/20/18 06:04 RBC Morphology Normal 11/20/18 06:04 Dimorphic RBCs Not Reportable 11/20/18 06:04 Polychromasia Not Reportable 11/20/18 06:04 Hypochromasia Not Reportable 11/20/18 06:04 Poikilocytosis Not Reportable 11/20/18 06:04 Anisocytosis Not Reportable 11/20/18 06:04 Microcytosis Not Reportable 11/20/18 06:04 Macrocytosis Not Reportable 11/20/18 06:04 Spherocytes Not Reportable 11/20/18 06:04 Pappenheimer Bodies Not Reportable 11/20/18 06:04 Sickle Cells Not Reportable 11/20/18 06:04 Target Cells Not Reportable 11/20/18 06:04 Tear Drop Cells Not Reportable 11/20/18 06:04 Ovalocytes Not Reportable 11/20/18 06:04 Helmet Cells Not Reportable 11/20/18 06:04 [place] Bodies Not Reportable 11/20/18 06:04 [place] Rings Not Reportable 11/20/18 06:04 Adrianne Cells Not Reportable 11/20/18 06:04 Bite Cells Not Reportable 11/20/18 06:04 Crenated Cell Not Reportable 11/20/18 06:04 Elliptocytes Not Reportable 11/20/18 06:04 Acanthocytes (Spur) Not Reportable 11/20/18 06:04 Rouleaux Not Reportable 11/20/18 06:04 Hemoglobin C Crystals Not Reportable 11/20/18 06:04 Schistocytes Not Reportable 11/20/18 06:04 Malaria parasites Not Reportable 11/20/18 06:04 Remberto Bodies Not Reportable 11/20/18 06:04 Hem Pathologist Commnt No 11/20/18 06:04 Sodium 142 mmol/L (137-145) 11/20/18 06:04 Potassium 4.1 mmol/L (3.6-5.0) D 11/20/18 06:04 Chloride 105.5 mmol/L (98-107) 11/20/18 06:04 Carbon Dioxide 21 mmol/L (22-30) L 11/20/18 06:04 Anion Gap 20 mmol/L 11/20/18 06:04 BUN 28 mg/dL (7-17) H 11/20/18 06:04 Creatinine 1.7 mg/dL (0.7-1.2) H 11/20/18 06:04 Estimated GFR 35 ml/min 11/20/18 06:04 BUN/Creatinine Ratio 16 % 11/20/18 06:04 Glucose 327 mg/dL (65-100) H 11/20/18 06:04 POC Glucose 326 (70-105) H 11/20/18 11:32 Lactic Acid 0.40 mmol/L (0.7-2.0) L 11/19/18 10:23 Calcium 8.7 mg/dL (8.4-10.2) 11/20/18 06:04 Total Bilirubin 0.50 mg/dL (0.1-1.2) 11/19/18 10:23 AST 34 units/L (5-40) 11/19/18 10:23 ALT 38 units/L (7-56) 11/19/18 10:23 Alkaline Phosphatase 302 units/L (35-129) H 11/19/18 10:23 Ammonia 35.0 umol/L (25-60) 11/19/18 10:23 Total Protein 7.7 g/dL (6.3-8.2) 11/19/18 10:23 Albumin 3.7 g/dL (3.9-5) L 11/19/18 10:23 Albumin/Globulin Ratio 0.9 % 11/19/18 10:23 TSH 1.120 mlU/mL (0.270-4.200) 11/19/18 10:23 Plasma/Serum Alcohol < 0.01 % (0-0.07) 11/19/18 10:23 Active Medications - Current Medications Current Medications: Generic Name Dose Route Start Last Admin Trade Name Freq PRN Reason Stop Dose Admin Acetaminophen 650 mg 11/19/18 15:11 Tylenol PO Q4H PRN Pain MILD(1-3)/Fever >100.5/ALVARADO Albuterol 2.5 mg 11/19/18 15:11 Proventil IH Q4HRT PRN Shortness Of Breath Amlodipine Besylate 5 mg 11/20/18 10:00 11/20/18 09:36 Norvasc PO 5 mg DAILY MUNA Administration Carvedilol 6.25 mg 11/19/18 22:00 11/20/18 09:36 Coreg PO 6.25 mg BID MUNA Administration Dextrose 50 ml 11/20/18 09:30 D50w (25gm) Syringe IV PRN PRN Hypoglycemia Donepezil HCl 10 mg 11/19/18 22:00 11/19/18 21:56 Aricept PO 10 mg QHS MUNA Administration Furosemide 40 mg 11/20/18 10:00 11/20/18 09:36 Lasix PO 40 mg DAILY MUNA Administration Hydralazine HCl 10 mg 11/19/18 15:50 Apresoline IV Q6HR PRN Hypertension Levofloxacin/Dextrose 250 mg in 50 mls @ 50 mls/hr 11/20/18 10:00 11/20/18 09:37 Levaquin 250mg/50ml IV 50 mls/hr Q24HR MUNA Administration Protocol Sodium Chloride 500 mls @ 50 mls/hr 11/19/18 16:00 Nacl 0.45% IV DIRECT MUNA Insulin Human Lispro 0 unit 11/20/18 11:30 Humalog SUB-Q ACHS MUNA Protocol Lisinopril 20 mg 11/19/18 17:00 11/20/18 09:36 Zestril PO 20 mg QDAY MUNA Administration Miscellaneous Medication 1 each 11/20/18 10:00 L. Acidophilus/Bifid. Animalis [Dialyvite Chewable Probiotic] PO DAILY MUNA Ondansetron HCl 4 mg 11/19/18 15:11 Zofran IV Q8H PRN Nausea And Vomiting Pantoprazole Sodium 40 mg 11/20/18 10:00 11/20/18 09:35 Protonix PO 40 mg QAM MUNA Administration Pneumococcal Polyvalent Vaccine 0.5 ml 11/20/18 12:00 Pneumovax 23 IM 11/20/18 12:01 .ONCE ONE Pravastatin Sodium 40 mg 11/19/18 22:00 11/19/18 21:55 Pravachol PO 40 mg HS MUNA Administration Sodium Chloride 10 ml 11/19/18 22:00 11/20/18 09:38 Sodium Chloride Flush Syringe 10 Ml IV 10 ml BID MUNA Administration Sodium Chloride 10 ml 11/19/18 15:11 Sodium Chloride Flush Syringe 10 Ml IV PRN PRN LINE FLUSH <NALLELY JIMENEZ M - Last Filed: 11/22/18 19:19> Assessment and Plan Assessment and plan: I saw and evaluated the patient. I agree with the findings and the plan of care as documented in the Nurse Practitioner's~note, with the following corrections a nd additions. - CKD who was on HD, (not ESRD), who was taken off HD 2 weeks ago Hyperkalemia-now resolved, sp kayexalate - Htn- cont bp meds -DM- optimize insulins - debility- cont PT -CHF- cont diuretics and fluid restriction, nephrology input appreciated Hospitalist Physical - Constitutional Vitals: Temp Pulse Resp BP Pulse Ox 98.2 F 81 20 166/74 94 11/22/18 07:14 11/22/18 09:46 11/22/18 07:14 11/22/18 09:46 11/22/18 09:17 Results - Labs CBC & Chem 7: 11/20/18 06:04 11/20/18 06:04 Labs: Laboratory Last Values WBC 10.3 K/mm3 (4.5-11.0) 11/20/18 06:04 RBC 3.68 M/mm3 (3.65-5.03) 11/20/18 06:04 Hgb 11.1 gm/dl (10.1-14.3) 11/20/18 06:04 Hct 34.3 % (30.3-42.9) 11/20/18 06:04 MCV 93 fl (79-97) 11/20/18 06:04 MCH 30 pg (28-32) 11/20/18 06:04 MCHC 32 % (30-34) 11/20/18 06:04 RDW 13.9 % (13.2-15.2) 11/20/18 06:04 Plt Count 213 K/mm3 (140-440) 11/20/18 06:04 Lymph % (Auto) 23.2 % (13.4-35.0) 11/19/18 10:23 Waldo % (Auto) 5.9 % (0.0-7.3) 11/19/18 10:23 Eos % (Auto) 4.0 % (0.0-4.3) 11/19/18 10:23 Baso % (Auto) 0.6 % (0.0-1.8) 11/19/18 10:23 Lymph # 1.4 K/mm3 (1.2-5.4) 11/19/18 10:23 Waldo # 0.4 K/mm3 (0.0-0.8) 11/19/18 10:23 Eos # 0.2 K/mm3 (0.0-0.4) 11/19/18 10:23 Baso # 0.0 K/mm3 (0.0-0.1) 11/19/18 10:23 Add Manual Diff Complete 11/20/18 06:04 Total Counted 100 11/20/18 06:04 Seg Neutrophils % 66.3 % (40.0-70.0) 11/19/18 10:23 Seg Neuts % (Manual) 72.0 % (40.0-70.0) H 11/20/18 06:04 Band Neutrophils % 0 % 11/20/18 06:04 Lymphocytes % (Manual) 20.0 % (13.4-35.0) 11/20/18 06:04 Reactive Lymphs % (Man) 0 % 11/20/18 06:04 Monocytes % (Manual) 2.0 % (0.0-7.3) 11/20/18 06:04 Eosinophils % (Manual) 6.0 % (0.0-4.3) H 11/20/18 06:04 Basophils % (Manual) 0 % (0.0-1.8) 11/20/18 06:04 Metamyelocytes % 0 % 11/20/18 06:04 Myelocytes % 0 % 11/20/18 06:04 Promyelocytes % 0 % 11/20/18 06:04 Blast Cells % 0 % 11/20/18 06:04 Nucleated RBC % 1.0 % (0.0-0.9) H 11/20/18 06:04 Seg Neutrophils # 4.0 K/mm3 (1.8-7.7) 11/19/18 10:23 Seg Neutrophils # Man 7.4 K/mm3 (1.8-7.7) 11/20/18 06:04 Band Neutrophils # 0.0 K/mm3 11/20/18 06:04 Lymphocytes # (Manual) 2.1 K/mm3 (1.2-5.4) 11/20/18 06:04 Abs React Lymphs (Man) 0.0 K/mm3 11/20/18 06:04 Monocytes # (Manual) 0.2 K/mm3 (0.0-0.8) 11/20/18 06:04 Eosinophils # (Manual) 0.6 K/mm3 (0.0-0.4) H 11/20/18 06:04 Basophils # (Manual) 0.0 K/mm3 (0.0-0.1) 11/20/18 06:04 Metamyelocytes # 0.0 K/mm3 11/20/18 06:04 Myelocytes # 0.0 K/mm3 11/20/18 06:04 Promyelocytes # 0.0 K/mm3 11/20/18 06:04 Blast Cells # 0.0 K/mm3 11/20/18 06:04 WBC Morphology Not Reportable 11/20/18 06:04 Hypersegmented Neuts Not Reportable 11/20/18 06:04 Hyposegmented Neuts Not Reportable 11/20/18 06:04 Hypogranular Neuts Not Reportable 11/20/18 06:04 Smudge Cells Not Reportable 11/20/18 06:04 Toxic Granulation Not Reportable 11/20/18 06:04 Toxic Vacuolation Not Reportable 11/20/18 06:04 Dohle Bodies Not Reportable 11/20/18 06:04 Pelger-Huet Anomaly Not Reportable 11/20/18 06:04 Anastasiya Rods Not Reportable 11/20/18 06:04 Platelet Estimate Consistent w auto 11/20/18 06:04 Clumped Platelets Not Reportable 11/20/18 06:04 Plt Clumps, EDTA Not Reportable 11/20/18 06:04 Large Platelets Not Reportable 11/20/18 06:04 Giant Platelets Not Reportable 11/20/18 06:04 Platelet Satelliting Not Reportable 11/20/18 06:04 Plt Morphology Comment Not Reportable 11/20/18 06:04 RBC Morphology Normal 11/20/18 06:04 Dimorphic RBCs Not Reportable 11/20/18 06:04 Polychromasia Not Reportable 11/20/18 06:04 Hypochromasia Not Reportable 11/20/18 06:04 Poikilocytosis Not Reportable 11/20/18 06:04 Anisocytosis Not Reportable 11/20/18 06:04 Microcytosis Not Reportable 11/20/18 06:04 Macrocytosis Not Reportable 11/20/18 06:04 Spherocytes Not Reportable 11/20/18 06:04 Pappenheimer Bodies Not Reportable 11/20/18 06:04 Sickle Cells Not Reportable 11/20/18 06:04 Target Cells Not Reportable 11/20/18 06:04 Tear Drop Cells Not Reportable 11/20/18 06:04 Ovalocytes Not Reportable 11/20/18 06:04 Helmet Cells Not Reportable 11/20/18 06:04 [place] Bodies Not Reportable 11/20/18 06:04 [place] Rings Not Reportable 11/20/18 06:04 Adrianne Cells Not Reportable 11/20/18 06:04 Bite Cells Not Reportable 11/20/18 06:04 Crenated Cell Not Reportable 11/20/18 06:04 Elliptocytes Not Reportable 11/20/18 06:04 Acanthocytes (Spur) Not Reportable 11/20/18 06:04 Rouleaux Not Reportable 11/20/18 06:04 Hemoglobin C Crystals Not Reportable 11/20/18 06:04 Schistocytes Not Reportable 11/20/18 06:04 Malaria parasites Not Reportable 11/20/18 06:04 Remberto Bodies Not Reportable 11/20/18 06:04 Hem Pathologist Commnt No 11/20/18 06:04 Sodium 142 mmol/L (137-145) 11/20/18 06:04 Potassium 4.1 mmol/L (3.6-5.0) D 11/20/18 06:04 Chloride 105.5 mmol/L (98-107) 11/20/18 06:04 Carbon Dioxide 21 mmol/L (22-30) L 11/20/18 06:04 Anion Gap 20 mmol/L 11/20/18 06:04 BUN 28 mg/dL (7-17) H 11/20/18 06:04 Creatinine 1.7 mg/dL (0.7-1.2) H 11/20/18 06:04 Estimated GFR 35 ml/min 11/20/18 06:04 BUN/Creatinine Ratio 16 % 11/20/18 06:04 Glucose 327 mg/dL (65-100) H 11/20/18 06:04 POC Glucose 280 (70-105) H 11/22/18 16:40 Hemoglobin A1c 9.0 % (4-6) H 11/21/18 04:50 Lactic Acid 0.40 mmol/L (0.7-2.0) L 11/19/18 10:23 Calcium 8.7 mg/dL (8.4-10.2) 11/20/18 06:04 Total Bilirubin 0.50 mg/dL (0.1-1.2) 11/19/18 10:23 AST 34 units/L (5-40) 11/19/18 10:23 ALT 38 units/L (7-56) 11/19/18 10:23 Alkaline Phosphatase 302 units/L (35-129) H 11/19/18 10:23 Ammonia 35.0 umol/L (25-60) 11/19/18 10:23 Total Protein 7.7 g/dL (6.3-8.2) 11/19/18 10:23 Albumin 3.7 g/dL (3.9-5) L 11/19/18 10:23 Albumin/Globulin Ratio 0.9 % 11/19/18 10:23 TSH 1.120 mlU/mL (0.270-4.200) 11/19/18 10:23 Urine Color Straw (Yellow) 11/20/18 14:47 Urine Turbidity Clear (Clear) 11/20/18 14:47 Urine pH 6.0 (5.0-7.0) 11/20/18 14:47 Ur Specific Harrell 1.009 (1.003-1.030) 11/20/18 14:47 Urine Protein 100 mg/dl mg/dL (Negative) 11/20/18 14:47 Urine Glucose (UA) 50 mg/dL (Negative) 11/20/18 14:47 Urine Ketones Neg mg/dL (Negative) 11/20/18 14:47 Urine Blood Mod (Negative) 11/20/18 14:47 Urine Nitrite Neg (Negative) 11/20/18 14:47 Urine Bilirubin Neg (Negative) 11/20/18 14:47 Urine Urobilinogen < 2.0 mg/dL (<2.0) 11/20/18 14:47 Ur Leukocyte Esterase Neg (Negative) 11/20/18 14:47 Urine WBC (Auto) < 1.0 /HPF (0.0-6.0) 11/20/18 14:47 Urine RBC (Auto) 2.0 /HPF (0.0-6.0) 11/20/18 14:47 U Epithel Cells (Auto) 1.0 /HPF (0-13.0) 11/20/18 14:47 Urine Creatinine 37.6 mg/dL (0.1-20.0) H 11/20/18 14:48 Urine Sodium 129 mmol/L 11/20/18 14:48 Plasma/Serum Alcohol < 0.01 % (0-0.07) 11/19/18 10:23 Active Medications - Current Medications Current Medications: Generic Name Dose Route Start Last Admin Trade Name Freq PRN Reason Stop Dose Admin Acetaminophen 650 mg 11/19/18 15:11 Tylenol PO Q4H PRN Pain MILD(1-3)/Fever >100.5/ALVARADO Albuterol 2.5 mg 11/19/18 15:11 Proventil IH Q4HRT PRN Shortness Of Breath Amlodipine Besylate 5 mg 11/20/18 10:00 11/22/18 09:46 Norvasc PO 5 mg DAILY MUNA Administration Carvedilol 12.5 mg 11/22/18 22:00 Coreg PO BID MUNA Dextrose 50 ml 11/20/18 09:30 D50w (25gm) Syringe IV PRN PRN Hypoglycemia Donepezil HCl 10 mg 11/19/18 22:00 11/21/18 22:14 Aricept PO 10 mg QHS MUNA Administration Furosemide 40 mg 11/20/18 10:00 11/22/18 09:46 Lasix PO 40 mg DAILY MUNA Administration Heparin Sodium (Porcine) 5,000 unit 11/20/18 22:00 11/22/18 09:44 Heparin SUB-Q 5,000 unit Q12HR MUNA Administration Hydralazine HCl 10 mg 11/19/18 15:50 Apresoline IV Q6HR PRN Hypertension Insulin Glargine 15 units 11/20/18 22:00 11/21/18 23:11 Lantus SUB-Q 15 units QHS MUNA Administration Insulin Human Lispro 0 unit 11/20/18 11:30 11/22/18 17:23 Humalog SUB-Q 4 unit ACHS MUNA Administration Protocol Levofloxacin 250 mg 11/22/18 10:00 11/22/18 09:46 Levaquin PO 250 mg DAILY MUNA Administration Lisinopril 20 mg 11/19/18 17:00 11/22/18 09:46 Zestril PO 20 mg QDAY MUNA Administration Ondansetron HCl 4 mg 11/19/18 15:11 11/22/18 12:22 Zofran IV 4 mg Q8H PRN Administration Nausea And Vomiting Pantoprazole Sodium 40 mg 11/20/18 10:00 11/22/18 09:45 Protonix PO 40 mg QAM MUNA Administration Pravastatin Sodium 40 mg 11/19/18 22:00 11/21/18 22:14 Pravachol PO 40 mg HS MUNA Administration Sodium Chloride 10 ml 11/19/18 22:00 11/22/18 09:45 Sodium Chloride Flush Syringe 10 Ml IV 10 ml BID MUNA Administration Sodium Chloride 10 ml 11/19/18 15:11 Sodium Chloride Flush Syringe 10 Ml IV PRN PRN LINE FLUSH Nutrition/Malnutrition Assess - Dietary Evaluation Nutrition/Malnutrition Findings: Nutrition Notes Start: 11/20/18 13:33 Freq: Status: Active Protocol: Document 11/20/18 13:33 RM (Rec: 11/20/18 13:43 RM [id number]) Nutrition Notes 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 Pt stated that her appetite is good and that she eats most of her meals. Denied chewing difficulty. Pt tech confirmed that pt ate all of breakfast this morning but only ate 25% of lunch. Stated that pt said she was full. Burn Absent Trauma Absent #1 Nutrition Diagnosis Inadequate oral intake Etiology dementia, encephalopathy As Evidenced by Signs and Symptoms pt tech statement that pt ate 25% of lunch Is patient on ventilator? No Is Patient Ambulatory and/or Out of Bed Yes REE-([facility]-ambulatory/OOB) [ [id number] [id number]] Calculation Used for Recommendations [facility] Additional Notes Protein Needs: 75-98g (1-1.3g/ kg) Fluid Needs: 1 ml/kcal Nutrition Intervention Change Diet Order: Continue current Add Supplement/Snack (indicate name/kcal Glucerna 1 daily /protein ) Provides kCal: 220 Provides Protein (gm) 10 Goal #1 Meet at least 75% of calorie and protein needs via PO and ONS intakes Anticipated Discharge Needs: Renal Follow-Up By: 11/25/18 Additional Comments Follow for PO and ONS intakes
[2018-11-20] MEDS: HumaLOG SUB-Q SCH ×3 (11:51→22:47)
[2018-11-20] MEDS ORDERED: PNEUMOVAX 23 IM ONE ×2 (12:00→17:00)
--- NOTE | 2018-11-20 13:39 | Consultation ---
History of Present Illness - Reason for Consult Consult date: 11/20/18 chronic renal failure, hyperkalemia Requesting physician: DEEPIKA SANTOS - History of Present Illness This is a 77 yo F with PMHx of hypertension, diabetes, complicated by neuropathy and nephropathy, peripheral vascular disease, history of nephrectomy, CKD who was on HD until 09/2018, then was taken off HD due to renal recovery, currently at CKD stage 3, who now presents to [facility] ER with complaints of confusion, worsening short term memory loss, generalized weakness for the past 1 month. Pt is required increased assistance with activities of daily living as well as increased verbal prompting and redirection. In ER CT head showed no acute findings. labs showed elevated K at 5.5, elevated, but stable renal function with Cr around 1.7- 1.8mg/dl. renal consult is requested for management of CKD and electrolyte imbalance. Past History Past Medical History: diabetes, ESRD, heart failure, hypertension, other (Dementia, Debility) Past Surgical History: hysterectomy, Other (Left Nephrectomy) Social history: , lives with family. denies: smoking, alcohol abuse, prescription drug abuse, IV drug use Family history: diabetes, hypertension Medications and Allergies Allergies Allergy/AdvReac Type Severity Reaction Status Date / Time methadone AdvReac Vomiting Verified 08/08/17 20:43 tramadol AdvReac Vomiting Verified 08/08/17 20:43 unknown Allergy Unknown Uncoded 08/08/17 20:43 Home Medications Medication Instructions Recorded Confirmed Last Taken Type Pantoprazole Sodium [Protonix] 40 mg PO QAM 01/19/15 11/19/18 06/20/16 History Carvedilol [Coreg] 6.25 mg PO BID #60 tablet 05/22/18 11/19/18 Unknown Rx Pravastatin Sodium [Pravachol] 40 mg PO HS #30 tablet 05/22/18 11/19/18 Unknown Rx Furosemide [Lasix TAB] 40 mg PO DAILY 11/19/18 11/19/18 Unknown History L. Acidophilus/Bifid. Animalis 1 each PO DAILY 11/19/18 11/19/18 Unknown History [Dialyvite Chewable Probiotic] Lisinopril/Hydrochlorothiazide 1 tab PO DAILY 11/19/18 11/19/18 Unknown History [Zestoretic 20-25 mg] amLODIPine [Norvasc] 5 mg PO DAILY 11/19/18 11/19/18 Unknown History Active Meds: Active Medications Acetaminophen (Tylenol) 650 mg PO Q4H PRN PRN Reason: Pain MILD(1-3)/Fever >100.5/ALVARADO Albuterol (Proventil) 2.5 mg IH Q4HRT PRN PRN Reason: Shortness Of Breath Amlodipine Besylate (Norvasc) 5 mg PO DAILY [facility] Last Admin: 11/20/18 09:36 Dose: 5 mg Documented by: Carvedilol (Coreg) 6.25 mg PO BID [facility] Last Admin: 11/20/18 09:36 Dose: 6.25 mg Documented by: Dextrose (D50w (25gm) Syringe) 50 ml IV PRN PRN PRN Reason: Hypoglycemia Donepezil HCl (Aricept) 10 mg PO QHS [facility] Last Admin: 11/19/18 21:56 Dose: 10 mg Documented by: Furosemide (Lasix) 40 mg PO DAILY [facility] Last Admin: 11/20/18 09:36 Dose: 40 mg Documented by: Hydralazine HCl (Apresoline) 10 mg IV Q6HR PRN PRN Reason: Hypertension Levofloxacin/Dextrose (Levaquin 250mg/50ml) 250 mg in 50 mls @ 50 mls/hr IV Q24HR [facility]; Protocol Last Admin: 11/20/18 09:37 Dose: 50 mls/hr Documented by: Sodium Chloride (Nacl 0.45%) 500 mls @ 50 mls/hr IV DIRECT [facility] Insulin Human Lispro (Humalog) 0 unit SUB-Q ACHS [facility]; Protocol Last Admin: 11/20/18 11:51 Dose: 6 unit Documented by: Lisinopril (Zestril) 20 mg PO QDAY [facility] Last Admin: 11/20/18 09:36 Dose: 20 mg Documented by: Miscellaneous Medication (L. Acidophilus/Bifid. Animalis [Dialyvite Chewable Probiotic]) 1 each PO DAILY [facility] Ondansetron HCl (Zofran) 4 mg IV Q8H PRN PRN Reason: Nausea And Vomiting Pantoprazole Sodium (Protonix) 40 mg PO QAM [facility] Last Admin: 11/20/18 09:35 Dose: 40 mg Documented by: Pravastatin Sodium (Pravachol) 40 mg PO HS [facility] Last Admin: 11/19/18 21:55 Dose: 40 mg Documented by: Sodium Chloride (Sodium Chloride Flush Syringe 10 Ml) 10 ml IV BID [facility] Last Admin: 11/20/18 09:38 Dose: 10 ml Documented by: Sodium Chloride (Sodium Chloride Flush Syringe 10 Ml) 10 ml IV PRN PRN PRN Reason: LINE FLUSH Review of Systems All systems: negative Constitutional: fatigue, weakness, malaise Cardiovascular: shortness of breath Exam - Vital Signs Vital signs: Vital Signs Temp Pulse Resp BP Pulse Ox 98.7 F 71 16 115/39 96 11/19/18 10:08 11/19/18 10:08 11/19/18 10:08 11/19/18 10:08 11/19/18 10:08 - General Appearance General appearance: well-developed, well-nourished, appears stated age EENT: ATNC, PERRL, mucous membranes moist Neck: Present: neck supple Respiratory: Decreased Breath Sounds Heart: regular, S1S2 Gastrointestinal: Present: normoactive bowel sounds Integumentary: no rash, other Neurologic: no focal deficit, alert and oriented x3, strength 5/5, CN 3-12 intact Psychiatric: mood/affect appropriate, cooperative Results - Lab Results 11/20/18 06:04 11/20/18 06:04 Most recent lab results Calcium 8.7 mg/dL (8.4-10.2) 11/20/18 06:04 Assessment and Plan - Patient Problems (1) Hyperkalemia Current Visit: Yes Status: Acute Plan to address problem: K improved s/p treatment with Kayexalate, cont lasix 40mg po qd. cont 2g K renal diet. (2) Encephalopathy Current Visit: Yes Status: Acute Plan to address problem: CT head without acute findings, cont neuro checks, aspiration precautions, fall precautions. (3) Hypertensive chronic kidney disease with stage 1 through stage 4 chronic kidney disease, or unspecified chronic kidney disease Current Visit: Yes Status: Acute Plan to address problem: monitor BP on current meds (4) Chronic kidney disease, stage III (moderate) Current Visit: Yes Status: Acute Plan to address problem: stable renal function, cont supportive care for CKD, avoid nephrotoxins, NSAIDs IV contrast. no acute need for renal replacement therapy. Recommend to continue lisinopril 20mg po qd for now, since K is controlled. (5) Diastolic CHF Current Visit: Yes Status: Acute Qualifiers: Heart failure chronicity: chronic Qualified Code(s): I50.32 - Chronic diastolic (congestive) heart failure Plan to address problem: cont lasix 40mg po qd. fluid restriction to 1,5L/day
[2018-11-20 15:01] LABS: Bilirubin,Urine NEG (Negative); Blood,Urine MOD (Negative); Color,Urine Straw (Yellow); Urobilinogen,Urine < 2.0 mg/dL (<2.0); WBC,Urine < 1.0 /HPF (0.0-6.0)
[2018-11-20 15:15] LABS: Creatinine,Urine 37.6 mg/dL (0.1-20.0)
[2018-11-20] MEDS: HEPARIN SUB-Q SCH (21:47)
[2018-11-20] MEDS: ARICEPT PO SCH (21:48)
[2018-11-20] MEDS: PRAVACHOL PO SCH (21:48)
[2018-11-20] MEDS: LANTUS SUB-Q SCH (21:49)
[2018-11-20] MEDS: ZOFRAN IV PRN (23:49)
[2018-11-21] MEDS: HumaLOG SUB-Q SCH ×4 (07:17→23:15)
[2018-11-21] MEDS: LEVAQUIN 250MG/50ML 250 MG/50 ML BAG IV SCH (09:40)
[2018-11-21] MEDS: HEPARIN SUB-Q SCH ×2 (09:40→22:18)
[2018-11-21] MEDS: PROTONIX PO SCH (09:41)
[2018-11-21] MEDS: ZESTRIL PO SCH (09:41)
[2018-11-21] MEDS: LASIX PO SCH (09:41)
[2018-11-21] MEDS: NORVASC PO SCH (09:42)
[2018-11-21] MEDS: SODIUM CHLORIDE FLUSH SYRINGE 10 ML IV SCH ×2 (09:42→22:20)
[2018-11-21] MEDS: COREG PO SCH ×2 (09:42→22:14)
--- NOTE | 2018-11-21 13:49 | Progress Note ---
<CALVIN FIGUEROA - Last Filed: 11/21/18 13:58> Assessment and Plan Assessment and plan: 77 YO Female with DM, HTN, Dementia, Debility, ESRD on HD (Discontinued 2 weeks ago), CHF, DM2 with neuropathy, who presented to ED for evaluation. Pt is confused and unable to provide detailed history. Pt history provided by her who is at bedside during exam and interview. Pt reports that patient has experienced worsening confusion, worsening short term memory loss, generalized weakness over the past 1 month with progressively worsening symptoms over the past 2 weeks. Pt is requires increased assistance with activities of daily living as well as increased verbal prompting and redirection. Pt transported to [facility] via private vehicle. Pt seen and evaluated in ED and found to have Encephalopathy, ARF, Hyperkalemia, and Sinusitis. Pt admitted to [facility] unit and initiated on IV antibiotic therapy. Nephrology consulted in ED. Prior admission on 09/22/[address] head unrevealing for any acute intracranial CT abnormality with extensive, and showed left maxillary sinus disease . Acute Metabolic Encephalopthy EDRD- previously on HD; Lt AV fistula CKD3 Diastolic CHF Hyperkalemia Sinusitis Dementia DM 2 wit neuropathy Plan: POC BG Moniroting SSI and scheduled Lantus HgbA1c 9.0 Monitor BP Continue antihypertensive medications to optimize BP Continue IV hydralazine prn Continue IV Levaquin Received kayexelate Monitor electrolytes Continue fall precautions Continue neuro checks Continue aspiration precautions Continue Renal diet Fluid restriction 1.5L per day Continue po Lasix Nephrology consulted DVT PPX on heparin History Interval history: Pt is seen on the [facility] unit this morning. Pt was given kayexelate, and had 3 episodes of soft formed bowel movements. At baseline she is a poor historian and her is not at the bedside. She has no complaints at this time. She denies cough, dyspnea, n/v/, and pain. Hospitalist Physical - Physical exam Narrative exam: General appearance: Present: no acute distress - EENT Eyes: Present: PERRL, EOM intact ENT: hearing intact, clear oral mucosa, poor dentition - Neck Neck: Present: supple, normal ROM - Respiratory Respiratory effort: normal Respiratory: bilateral: diminished - Cardiovascular Heart rate: 87 (bpm) Rhythm: regular Heart Sounds: Present: S1 & S2 - Extremities Extremities: pulses intact, abnormal (BAKARI AV fistula) Extremity abnormal: edema - Peripheral Assessment Lower Extremity Edema Type: Pitting Edema Degree: 1+ Skin Temperature: Warm - Abdominal General gastrointestinal: soft, non-tender, normal bowel sounds - Integumentary Integumentary: Present: warm, dry - Psychiatric Psychiatric: appropriate mood/affect, cooperative, other (poor historian) - Constitutional Vitals: Temp Pulse Resp BP Pulse Ox 98.0 F 87 20 141/71 91 11/21/18 07:10 11/21/18 10:00 11/21/18 07:10 11/21/18 09:41 11/21/18 10:00 General appearance: Present: no acute distress Results - Labs CBC & Chem 7: 11/20/18 06:04 11/20/18 06:04 Labs: Laboratory Last Values WBC 10.3 K/mm3 (4.5-11.0) 11/20/18 06:04 RBC 3.68 M/mm3 (3.65-5.03) 11/20/18 06:04 Hgb 11.1 gm/dl (10.1-14.3) 11/20/18 06:04 Hct 34.3 % (30.3-42.9) 11/20/18 06:04 MCV 93 fl (79-97) 11/20/18 06:04 MCH 30 pg (28-32) 11/20/18 06:04 MCHC 32 % (30-34) 11/20/18 06:04 RDW 13.9 % (13.2-15.2) 11/20/18 06:04 Plt Count 213 K/mm3 (140-440) 11/20/18 06:04 Lymph % (Auto) 23.2 % (13.4-35.0) 11/19/18 10:23 [place] % (Auto) 5.9 % (0.0-7.3) 11/19/18 10:23 Eos % (Auto) 4.0 % (0.0-4.3) 11/19/18 10:23 Baso % (Auto) 0.6 % (0.0-1.8) 11/19/18 10:23 Lymph # 1.4 K/mm3 (1.2-5.4) 11/19/18 10:23 [place] # 0.4 K/mm3 (0.0-0.8) 11/19/18 10:23 Eos # 0.2 K/mm3 (0.0-0.4) 11/19/18 10:23 Baso # 0.0 K/mm3 (0.0-0.1) 11/19/18 10:23 Add Manual Diff Complete 11/20/18 06:04 Total Counted 100 11/20/18 06:04 Seg Neutrophils % 66.3 % (40.0-70.0) 11/19/18 10:23 Seg Neuts % (Manual) 72.0 % (40.0-70.0) H 11/20/18 06:04 Band Neutrophils % 0 % 11/20/18 06:04 Lymphocytes % (Manual) 20.0 % (13.4-35.0) 11/20/18 06:04 Reactive Lymphs % (Man) 0 % 11/20/18 06:04 Monocytes % (Manual) 2.0 % (0.0-7.3) 11/20/18 06:04 Eosinophils % (Manual) 6.0 % (0.0-4.3) H 11/20/18 06:04 Basophils % (Manual) 0 % (0.0-1.8) 11/20/18 06:04 Metamyelocytes % 0 % 11/20/18 06:04 Myelocytes % 0 % 11/20/18 06:04 Promyelocytes % 0 % 11/20/18 06:04 Blast Cells % 0 % 11/20/18 06:04 Nucleated RBC % 1.0 % (0.0-0.9) H 11/20/18 06:04 Seg Neutrophils # 4.0 K/mm3 (1.8-7.7) 11/19/18 10:23 Seg Neutrophils # Man 7.4 K/mm3 (1.8-7.7) 11/20/18 06:04 Band Neutrophils # 0.0 K/mm3 11/20/18 06:04 Lymphocytes # (Manual) 2.1 K/mm3 (1.2-5.4) 11/20/18 06:04 Abs React Lymphs (Man) 0.0 K/mm3 11/20/18 06:04 Monocytes # (Manual) 0.2 K/mm3 (0.0-0.8) 11/20/18 06:04 Eosinophils # (Manual) 0.6 K/mm3 (0.0-0.4) H 11/20/18 06:04 Basophils # (Manual) 0.0 K/mm3 (0.0-0.1) 11/20/18 06:04 Metamyelocytes # 0.0 K/mm3 11/20/18 06:04 Myelocytes # 0.0 K/mm3 11/20/18 06:04 Promyelocytes # 0.0 K/mm3 11/20/18 06:04 Blast Cells # 0.0 K/mm3 11/20/18 06:04 WBC Morphology Not Reportable 11/20/18 06:04 Hypersegmented Neuts Not Reportable 11/20/18 06:04 Hyposegmented Neuts Not Reportable 11/20/18 06:04 Hypogranular Neuts Not Reportable 11/20/18 06:04 Smudge Cells Not Reportable 11/20/18 06:04 Toxic Granulation Not Reportable 11/20/18 06:04 Toxic Vacuolation Not Reportable 11/20/18 06:04 Dohle Bodies Not Reportable 11/20/18 06:04 Pelger-Huet Anomaly Not Reportable 11/20/18 06:04 Anastasiya Rods Not Reportable 11/20/18 06:04 Platelet Estimate Consistent w auto 11/20/18 06:04 Clumped Platelets Not Reportable 11/20/18 06:04 Plt Clumps, EDTA Not Reportable 11/20/18 06:04 Large Platelets Not Reportable 11/20/18 06:04 Giant Platelets Not Reportable 11/20/18 06:04 Platelet Satelliting Not Reportable 11/20/18 06:04 Plt Morphology Comment Not Reportable 11/20/18 06:04 RBC Morphology Normal 11/20/18 06:04 Dimorphic RBCs Not Reportable 11/20/18 06:04 Polychromasia Not Reportable 11/20/18 06:04 Hypochromasia Not Reportable 11/20/18 06:04 Poikilocytosis Not Reportable 11/20/18 06:04 Anisocytosis Not Reportable 11/20/18 06:04 Microcytosis Not Reportable 11/20/18 06:04 Macrocytosis Not Reportable 11/20/18 06:04 Spherocytes Not Reportable 11/20/18 06:04 Pappenheimer Bodies Not Reportable 11/20/18 06:04 Sickle Cells Not Reportable 11/20/18 06:04 Target Cells Not Reportable 11/20/18 06:04 Tear Drop Cells Not Reportable 11/20/18 06:04 Ovalocytes Not Reportable 11/20/18 06:04 Helmet Cells Not Reportable 11/20/18 06:04 Cornelius-Steward Bodies Not Reportable 11/20/18 06:04 [place] Rings Not Reportable 11/20/18 06:04 [place] Cells Not Reportable 11/20/18 06:04 Bite Cells Not Reportable 11/20/18 06:04 Crenated Cell Not Reportable 11/20/18 06:04 Elliptocytes Not Reportable 11/20/18 06:04 Acanthocytes (Spur) Not Reportable 11/20/18 06:04 Rouleaux Not Reportable 11/20/18 06:04 Hemoglobin C Crystals Not Reportable 11/20/18 06:04 Schistocytes Not Reportable 11/20/18 06:04 Malaria parasites Not Reportable 11/20/18 06:04 Remberto Bodies Not Reportable 11/20/18 06:04 Hem Pathologist Commnt No 11/20/18 06:04 Sodium 142 mmol/L (137-145) 11/20/18 06:04 Potassium 4.1 mmol/L (3.6-5.0) D 11/20/18 06:04 Chloride 105.5 mmol/L (98-107) 11/20/18 06:04 Carbon Dioxide 21 mmol/L (22-30) L 11/20/18 06:04 Anion Gap 20 mmol/L 11/20/18 06:04 BUN 28 mg/dL (7-17) H 11/20/18 06:04 Creatinine 1.7 mg/dL (0.7-1.2) H 11/20/18 06:04 Estimated GFR 35 ml/min 11/20/18 06:04 BUN/Creatinine Ratio 16 % 11/20/18 06:04 Glucose 327 mg/dL (65-100) H 11/20/18 06:04 POC Glucose 194 (70-105) H 11/21/18 11:49 Hemoglobin A1c 9.0 % (4-6) H 11/21/18 04:50 Lactic Acid 0.40 mmol/L (0.7-2.0) L 11/19/18 10:23 Calcium 8.7 mg/dL (8.4-10.2) 11/20/18 06:04 Total Bilirubin 0.50 mg/dL (0.1-1.2) 11/19/18 10:23 AST 34 units/L (5-40) 11/19/18 10:23 ALT 38 units/L (7-56) 11/19/18 10:23 Alkaline Phosphatase 302 units/L (35-129) H 11/19/18 10:23 Ammonia 35.0 umol/L (25-60) 11/19/18 10:23 Total Protein 7.7 g/dL (6.3-8.2) 11/19/18 10:23 Albumin 3.7 g/dL (3.9-5) L 11/19/18 10:23 Albumin/Globulin Ratio 0.9 % 11/19/18 10:23 TSH 1.120 mlU/mL (0.270-4.200) 11/19/18 10:23 Urine Color Straw (Yellow) 11/20/18 14:47 Urine Turbidity Clear (Clear) 11/20/18 14:47 Urine pH 6.0 (5.0-7.0) 11/20/18 14:47 Ur Specific [place] 1.009 (1.003-1.030) 11/20/18 14:47 Urine Protein 100 mg/dl mg/dL (Negative) 11/20/18 14:47 Urine Glucose (UA) 50 mg/dL (Negative) 11/20/18 14:47 Urine Ketones Neg mg/dL (Negative) 11/20/18 14:47 Urine Blood Mod (Negative) 11/20/18 14:47 Urine Nitrite Neg (Negative) 11/20/18 14:47 Urine Bilirubin Neg (Negative) 11/20/18 14:47 Urine Urobilinogen < 2.0 mg/dL (<2.0) 11/20/18 14:47 Ur Leukocyte Esterase Neg (Negative) 11/20/18 14:47 Urine WBC (Auto) < 1.0 /HPF (0.0-6.0) 11/20/18 14:47 Urine RBC (Auto) 2.0 /HPF (0.0-6.0) 11/20/18 14:47 U Epithel Cells (Auto) 1.0 /HPF (0-13.0) 11/20/18 14:47 Urine Creatinine 37.6 mg/dL (0.1-20.0) H 11/20/18 14:48 Urine Sodium 129 mmol/L 11/20/18 14:48 Plasma/Serum Alcohol < 0.01 % (0-0.07) 11/19/18 10:23 Active Medications - Current Medications Current Medications: Generic Name Dose Route Start Last Admin Trade Name Freq PRN Reason Stop Dose Admin Acetaminophen 650 mg 11/19/18 15:11 Tylenol PO Q4H PRN Pain MILD(1-3)/Fever >100.5/ALVARADO Albuterol 2.5 mg 11/19/18 15:11 Proventil IH Q4HRT PRN Shortness Of Breath Amlodipine Besylate 5 mg 11/20/18 10:00 11/21/18 09:42 Norvasc PO 5 mg DAILY MUNA Administration Carvedilol 6.25 mg 11/19/18 22:00 11/21/18 09:42 Coreg PO 6.25 mg BID MUNA Administration Dextrose 50 ml 11/20/18 09:30 D50w (25gm) Syringe IV PRN PRN Hypoglycemia Donepezil HCl 10 mg 11/19/18 22:00 11/20/18 21:48 Aricept PO 10 mg QHS MUNA Administration Furosemide 40 mg 11/20/18 10:00 11/21/18 09:41 Lasix PO 40 mg DAILY MUNA Administration Heparin Sodium (Porcine) 5,000 unit 11/20/18 22:00 11/21/18 09:40 Heparin SUB-Q 5,000 unit Q12HR MUNA Administration Hydralazine HCl 10 mg 11/19/18 15:50 Apresoline IV Q6HR PRN Hypertension Levofloxacin/Dextrose 250 mg in 50 mls @ 50 mls/hr 11/20/18 10:00 11/21/18 09:40 Levaquin 250mg/50ml IV 11/21/18 14:00 50 mls/hr Q24HR MUNA Administration Protocol Insulin Glargine 15 units 11/20/18 22:00 11/20/18 21:49 Lantus SUB-Q 15 units QHS MUNA Administration Insulin Human Lispro 0 unit 11/20/18 11:30 11/21/18 07:17 Humalog SUB-Q Not Given ACHS [facility] Protocol Levofloxacin 250 mg 11/22/18 10:00 Levaquin PO DAILY MUNA Lisinopril 20 mg 11/19/18 17:00 11/21/18 09:41 Zestril PO 20 mg QDAY MUNA Administration Ondansetron HCl 4 mg 11/19/18 15:11 11/20/18 23:49 Zofran IV 4 mg Q8H PRN Administration Nausea And Vomiting Pantoprazole Sodium 40 mg 11/20/18 10:00 11/21/18 09:41 Protonix PO 40 mg QAM MUNA Administration Pravastatin Sodium 40 mg 11/19/18 22:00 11/20/18 21:48 Pravachol PO 40 mg HS MUNA Administration Sodium Chloride 10 ml 11/19/18 22:00 11/21/18 09:42 Sodium Chloride Flush Syringe 10 Ml IV 10 ml BID MUNA Administration Sodium Chloride 10 ml 11/19/18 15:11 Sodium Chloride Flush Syringe 10 Ml IV PRN PRN LINE FLUSH Nutrition/Malnutrition Assess - Dietary Evaluation Nutrition/Malnutrition Findings: Nutrition Notes Start: 11/20/18 13:33 Freq: Status: Active Protocol: Document 11/20/18 13:33 RM (Rec: 11/20/18 13:43 RM [id number]) Nutrition Notes Need for Assessment generated from: attending anesthesiologist Initial or Follow up Assessment Current Diagnosis Acute Kidney Injury,Diabetes, Hypertension,Heart Failure Other Pertinent Diagnosis Dementia, Debility, Encephalopathy Current Diet Renal Labs/Tests Reviewed Pertinent Medications Lasix Height 5 ft 5 in Weight 75.2 kg [place] Body Weight (kg) 56.81 BMI 27.6 Subjective/Other Information Screened for chewing difficulty. Pt stated that her appetite is good and that she eats most of her meals. Denied chewing difficulty. Pt tech confirmed that pt ate all of breakfast this morning but only ate 25% of lunch. Stated that pt said she was full. Burn Absent Trauma Absent #1 Nutrition Diagnosis Inadequate oral intake Etiology dementia, encephalopathy As Evidenced by Signs and Symptoms pt tech statement that pt ate 25% of lunch Is patient on ventilator? No Is Patient Ambulatory and/or Out of Bed Yes REE-([facility]-amb[facility]/OOB) [ [id number] [id number]] Calculation [facility] Additional Notes Protein Needs: 75-98g (1-1.3g/ kg) Fluid Needs: 1 ml/kcal Nutrition Intervention Change Diet Order: Continue current Add Supplement/Snack (indicate name/kcal Glucerna 1 daily /protein ) Provides kCal: 220 Provides Protein (gm) 10 Goal #1 Meet at least 75% of calorie and protein needs via PO and ONS intakes Anticipated Discharge Needs: Renal Follow-Up By: 11/25/18 Additional Comments Follow for PO and ONS intakes <NALLELY JIMENEZ - Last Filed: 11/23/18 23:02> Assessment and Plan Assessment and plan: I saw and evaluated the patient. I agree with the findings and the plan of care as documented in the Nurse Practitioner's~note, with the following corrections and additions. cont PT, dispo home vs [place] Hospitalist Physical - Constitutional Vitals: Temp Pulse Resp BP Pulse Ox 98.2 F 70 18 146/53 99 11/23/18 13:32 11/23/18 21:35 11/23/18 13:32 11/23/18 21:35 11/23/18 13:32 Results - Labs CBC & Chem 7: 11/22/18 18:35 11/23/18 15:23 Labs: Laboratory Last Values WBC 6.9 K/mm3 (4.5-11.0) 11/22/18 18:35 RBC 3.68 M/mm3 (3.65-5.03) 11/22/18 18:35 Hgb 11.6 gm/dl (10.1-14.3) 11/22/18 18:35 Hct 36.6 % (30.3-42.9) 11/22/18 18:35 MCV 100 fl (79-97) H 11/22/18 18:35 MCH 32 pg (28-32) 11/22/18 18:35 MCHC 32 % (30-34) 11/22/18 18:35 RDW 15.4 % (13.2-15.2) H 11/22/18 18:35 Plt Count 237 K/mm3 (140-440) 11/22/18 18:35 Lymph % (Auto) [employer] Platform Developer 11/22/18 18:35 [place] % (Auto) Android Platform Developer 11/22/18 18:35 Eos % (Auto) Android Platform Developer 11/22/18 18:35 Baso % (Auto) Android Platform Developer 11/22/18 18:35 Lymph # Android Platform Developer 11/22/18 18:35 [place] # Android Platform Developer 11/22/18 18:35 Eos # Android Platform Developer 11/22/18 18:35 Baso # Android Platform Developer 11/22/18 18:35 Add Manual Diff Complete 11/20/18 06:04 Total Counted 100 11/20/18 06:04 Seg Neutrophils % Android Platform Developer 11/22/18 18:35 Seg Neuts % (Manual) 72.0 % (40.0-70.0) H 11/20/18 06:04 Band Neutrophils % 0 % 11/20/18 06:04 Lymphocytes % (Manual) 20.0 % (13.4-35.0) 11/20/18 06:04 Reactive Lymphs % (Man) 0 % 11/20/18 06:04 Monocytes % (Manual) 2.0 % (0.0-7.3) 11/20/18 06:04 Eosinophils % (Manual) 6.0 % (0.0-4.3) H 11/20/18 06:04 Basophils % (Manual) 0 % (0.0-1.8) 11/20/18 06:04 Metamyelocytes % 0 % 11/20/18 06:04 Myelocytes % 0 % 11/20/18 06:04 Promyelocytes % 0 % 11/20/18 06:04 Blast Cells % 0 % 11/20/18 06:04 Nucleated RBC % 1.0 % (0.0-0.9) H 11/20/18 06:04 Seg Neutrophils # Android Platform Developer 11/22/18 18:35 Seg Neutrophils # Man 7.4 K/mm3 (1.8-7.7) 11/20/18 06:04 Band Neutrophils # 0.0 K/mm3 11/20/18 06:04 Lymphocytes # (Manual) 2.1 K/mm3 (1.2-5.4) 11/20/18 06:04 Abs React Lymphs (Man) 0.0 K/mm3 11/20/18 06:04 Monocytes # (Manual) 0.2 K/mm3 (0.0-0.8) 11/20/18 06:04 Eosinophils # (Manual) 0.6 K/mm3 (0.0-0.4) H 11/20/18 06:04 Basophils # (Manual) 0.0 K/mm3 (0.0-0.1) 11/20/18 06:04 Metamyelocytes # 0.0 K/mm3 11/20/18 06:04 Myelocytes # 0.0 K/mm3 11/20/18 06:04 Promyelocytes # 0.0 K/mm3 11/20/18 06:04 Blast Cells # 0.0 K/mm3 11/20/18 06:04 WBC Morphology Not Reportable 11/20/18 06:04 Hypersegmented Neuts Not Reportable 11/20/18 06:04 Hyposegmented Neuts Not Reportable 11/20/18 06:04 Hypogranular Neuts Not Reportable 11/20/18 06:04 Smudge Cells Not Reportable 11/20/18 06:04 Toxic Granulation Not Reportable 11/20/18 06:04 Toxic Vacuolation Not Reportable 11/20/18 06:04 Dohle Bodies Not Reportable 11/20/18 06:04 Pelger-Huet Anomaly Not Reportable 11/20/18 06:04 Anastasiya Rods Not Reportable 11/20/18 06:04 Platelet Estimate Consistent w auto 11/20/18 06:04 Clumped Platelets Not Reportable 11/20/18 06:04 Plt Clumps, EDTA Not Reportable 11/20/18 06:04 Large Platelets Not Reportable 11/20/18 06:04 Giant Platelets Not Reportable 11/20/18 06:04 Platelet Satelliting Not Reportable 11/20/18 06:04 Plt Morphology Comment Not Reportable 11/20/18 06:04 RBC Morphology Normal 11/20/18 06:04 Dimorphic RBCs Not Reportable 11/20/18 06:04 Polychromasia Not Reportable 11/20/18 06:04 Hypochromasia Not Reportable 11/20/18 06:04 Poikilocytosis Not Reportable 11/20/18 06:04 Anisocytosis Not Reportable 11/20/18 06:04 Microcytosis Not Reportable 11/20/18 06:04 Macrocytosis Not Reportable 11/20/18 06:04 Spherocytes Not Reportable 11/20/18 06:04 Pappenheimer Bodies Not Reportable 11/20/18 06:04 Sickle Cells Not Reportable 11/20/18 06:04 Target Cells Not Reportable 11/20/18 06:04 Tear Drop Cells Not Reportable 11/20/18 06:04 Ovalocytes Not Reportable 11/20/18 06:04 Helmet Cells Not Reportable 11/20/18 06:04 Cornelius-Steward Bodies Not Reportable 11/20/18 06:04 [place] Rings Not Reportable 11/20/18 06:04 [place] Cells Not Reportable 11/20/18 06:04 Bite Cells Not Reportable 11/20/18 06:04 Crenated Cell Not Reportable 11/20/18 06:04 Elliptocytes Not Reportable 11/20/18 06:04 Acanthocytes (Spur) Not Reportable 11/20/18 06:04 Rouleaux Not Reportable 11/20/18 06:04 Hemoglobin C Crystals Not Reportable 11/20/18 06:04 Schistocytes Not Reportable 11/20/18 06:04 Malaria parasites Not Reportable 11/20/18 06:04 Remberto Bodies Not Reportable 11/20/18 06:04 Hem Pathologist Commnt No 11/20/18 06:04 Sodium 142 mmol/L (137-145) 11/23/18 15:23 Potassium 3.6 mmol/L (3.6-5.0) 11/23/18 15:23 Chloride 104.0 mmol/L (98-107) 11/23/18 15:23 Carbon Dioxide 23 mmol/L (22-30) 11/23/18 15:23 Anion Gap 19 mmol/L 11/23/18 15:23 BUN 34 mg/dL (7-17) H 11/23/18 15:23 Creatinine 2.3 mg/dL (0.7-1.2) H 11/23/18 15:23 Estimated GFR 25 ml/min 11/23/18 15:23 BUN/Creatinine Ratio 15 % 11/23/18 15:23 Glucose 125 mg/dL (65-100) H 11/23/18 15:23 POC Glucose 188 (70-105) H 11/23/18 21:22 Hemoglobin A1c 9.0 % (4-6) H 11/21/18 04:50 Lactic Acid 0.40 mmol/L (0.7-2.0) L 11/19/18 10:23 Calcium 8.2 mg/dL (8.4-10.2) L 11/23/18 15:23 Phosphorus 3.80 mg/dL (2.5-4.5) 11/22/18 18:35 Magnesium 1.70 mg/dL (1.7-2.3) 11/22/18 18:35 Total Bilirubin 0.50 mg/dL (0.1-1.2) 11/19/18 10:23 AST 34 units/L (5-40) 11/19/18 10:23 ALT 38 units/L (7-56) 11/19/18 10:23 Alkaline Phosphatase 302 units/L (35-129) H 11/19/18 10:23 Ammonia 35.0 umol/L (25-60) 11/19/18 10:23 Total Protein 7.7 g/dL (6.3-8.2) 11/19/18 10:23 Albumin 3.7 g/dL (3.9-5) L 11/19/18 10:23 Albumin/Globulin Ratio 0.9 % 11/19/18 10:23 TSH 1.120 mlU/mL (0.270-4.200) 11/19/18 10:23 Urine Color Straw (Yellow) 11/20/18 14:47 Urine Turbidity Clear (Clear) 11/20/18 14:47 Urine pH 6.0 (5.0-7.0) 11/20/18 14:47 Ur Specific [place] 1.009 (1.003-1.030) 11/20/18 14:47 Urine Protein 100 mg/dl mg/dL (Negative) 11/20/18 14:47 Urine Glucose (UA) 50 mg/dL (Negative) 11/20/18 14:47 Urine Ketones Neg mg/dL (Negative) 11/20/18 14:47 Urine Blood Mod (Negative) 11/20/18 14:47 Urine Nitrite Neg (Negative) 11/20/18 14:47 Urine Bilirubin Neg (Negative) 11/20/18 14:47 Urine Urobilinogen < 2.0 mg/dL (<2.0) 11/20/18 14:47 Ur Leukocyte Esterase Neg (Negative) 11/20/18 14:47 Urine WBC (Auto) < 1.0 /HPF (0.0-6.0) 11/20/18 14:47 Urine RBC (Auto) 2.0 /HPF (0.0-6.0) 11/20/18 14:47 U Epithel Cells (Auto) 1.0 /HPF (0-13.0) 11/20/18 14:47 Urine Creatinine 37.6 mg/dL (0.1-20.0) H 11/20/18 14:48 Urine Sodium 129 mmol/L 11/20/18 14:48 Plasma/Serum Alcohol < 0.01 % (0-0.07) 11/19/18 10:23 Active Medications - Current Medications Current Medications: Generic Name Dose Route Start Last Admin Trade Name Freq PRN Reason Stop Dose Admin Acetaminophen 650 mg 11/19/18 15:11 Tylenol PO Q4H PRN Pain MILD(1-3)/Fever >100.5/ALVARADO Albuterol 2.5 mg 11/19/18 15:11 Proventil IH Q4HRT PRN Shortness Of Breath Amlodipine Besylate 5 mg 11/20/18 10:00 11/23/18 10:53 Norvasc PO 5 mg DAILY MUNA Administration Carvedilol 12.5 mg 11/22/18 22:00 11/23/18 21:35 Coreg PO 12.5 mg BID MUNA Administration Dextrose 50 ml 11/20/18 09:30 D50w (25gm) Syringe IV PRN PRN Hypoglycemia Donepezil HCl 10 mg 11/19/18 22:00 11/23/18 21:36 Aricept PO 10 mg QHS MUNA Administration Furosemide 40 mg 11/20/18 10:00 11/23/18 10:53 Lasix PO 40 mg DAILY MUNA Administration Heparin Sodium (Porcine) 5,000 unit 11/20/18 22:00 11/23/18 21:35 Heparin SUB-Q 5,000 unit Q12HR MUNA Administration Hydralazine HCl 10 mg 11/19/18 15:50 Apresoline IV Q6HR PRN Hypertension Insulin Glargine 15 units 11/20/18 22:00 11/23/18 21:38 Lantus SUB-Q 15 units QHS MUNA Administration Insulin Human Lispro 0 unit 11/20/18 11:30 11/23/18 22:57 Humalog SUB-Q 2 unit ACHS MUNA Administration Protocol Levofloxacin 250 mg 11/22/18 10:00 11/23/18 10:53 Levaquin PO 250 mg DAILY MUNA Administration Lisinopril 20 mg 11/19/18 17:00 11/23/18 10:54 Zestril PO 20 mg QDAY MUNA Administration Ondansetron HCl 4 mg 11/19/18 15:11 11/23/18 01:32 Zofran IV 4 mg Q8H PRN Administration Nausea And Vomiting Pantoprazole Sodium 40 mg 11/20/18 10:00 11/23/18 10:53 Protonix PO 40 mg QAM MUNA Administration Pravastatin Sodium 40 mg 11/19/18 22:00 11/23/18 21:35 Pravachol PO 40 mg HS MUNA Administration Sodium Chloride 10 ml 11/19/18 22:00 11/23/18 21:36 Sodium Chloride Flush Syringe 10 Ml IV 10 ml BID MUNA Administration Sodium Chloride 10 ml 11/19/18 15:11 Sodium Chloride Flush Syringe 10 Ml IV PRN PRN LINE FLUSH Nutrition/Malnutrition Assess - Dietary Evaluation Nutrition/Malnutrition Findings: Nutrition Notes Start: 11/20/18 13:33 Freq: Status: Active Protocol: Document 11/20/18 13:33 RM (Rec: 11/20/18 13:43 RM [id number]) Nutrition Notes Need for Assessment generated from: attending anesthesiologist Initial or Follow up Assessment Current Diagnosis Acute Kidney Injury,Diabetes, Hypertension,Heart Failure Other Pertinent Diagnosis Dementia, Debility, Encephalopathy Current Diet Renal Labs/Tests Reviewed Pertinent Medications Lasix Height 5 ft 5 in Weight 75.2 kg [place] Body Weight (kg) 56.81 BMI 27.6 Subjective/Other Information Screened for chewing difficulty. Pt stated that her appetite is good and that she eats most of her meals. Denied chewing difficulty. Pt tech confirmed that pt ate all of breakfast this morning but only ate 25% of lunch. Stated that pt said she was full. Burn Absent Trauma Absent #1 Nutrition Diagnosis Inadequate oral intake Etiology dementia, encephalopathy As Evidenced by Signs and Symptoms pt tech statement that pt ate 25% of lunch Is patient on ventilator? No Is Patient Ambulatory and/or Out of Bed Yes REE-([facility]-ambulatory/OOB) [ [id number] [id number]] Calculation Used for Recommendations [facility] Additional Notes Protein Needs: 75-98g (1-1.3g/ kg) Fluid Needs: 1 ml/kcal Nutrition Intervention Change Diet Order: Continue current Add Supplement/Snack (indicate name/kcal Glucerna 1 daily /protein ) Provides kCal: 220 Provides Protein (gm) 10 Goal #1 Meet at least 75% of calorie and protein needs via PO and ONS intakes Anticipated Discharge Needs: Renal Follow-Up By: 11/25/18 Additional Comments Follow for PO and ONS intakes
--- NOTE | 2018-11-21 15:48 | Progress Note ---
Assessment and Plan - Patient Problems (1) Hyperkalemia Current Visit: Yes Status: Acute Plan to address problem: K improved s/p treatment with Kayexalate, cont lasix 40mg po qd. cont 2g K renal diet. (2) Encephalopathy Current Visit: Yes Status: Acute Plan to address problem: CT head without acute findings, cont neuro checks, aspiration precautions, fall precautions. Suspect progressive dementia. (3) Hypertensive chronic kidney disease with stage 1 through stage 4 chronic kidney disease, or unspecified chronic kidney disease Current Visit: Yes Status: Acute Plan to address problem: monitor BP on current meds (4) Chronic kidney disease, stage III (moderate) Current Visit: Yes Status: Acute Plan to address problem: stable renal function, cont supportive care for CKD, avoid nephrotoxins, NSAIDs IV contrast. no acute need for renal replacement therapy. Recommend to continue lisinopril 20mg po qd for now, since K is controlled. (5) Diastolic CHF Current Visit: Yes Status: Acute Qualifiers: Heart failure chronicity: chronic Qualified Code(s): I50.32 - Chronic diastolic (congestive) heart failure Plan to address problem: cont lasix 40mg po qd. fluid restriction to 1,5L/day Subjective Date of service: 11/21/18 Principal diagnosis: CKD Interval history: patient awake, alert, however still lethargic, confused at times, reports decreased appetite. Objective - Vital Signs Vital signs: Vital Signs - 12hr 11/21/18 11/21/18 11/21/18 07:10 09:41 10:00 Temperature 98.0 F Pulse Rate 83 87 Pulse Rate [ 87 From Monitor] Respiratory 20 Rate Blood Pressure 152/78 141/71 Blood Pressure [Right] O2 Sat by Pulse 91 91 Oximetry 11/21/18 11/21/18 13:28 14:41 Temperature 98.0 F Pulse Rate 82 89 Pulse Rate [ From Monitor] Respiratory 20 Rate Blood Pressure 187/81 Blood Pressure 123/50 [Right] O2 Sat by Pulse 91 Oximetry - General Appearance General appearance: well-developed, well-nourished, appears stated age EENT: ATNC, PERRL, mucous membranes moist Neck: no JVD Respiratory: Present: Clear to Ascultation Cardiology: regular, S1S2 Gastrointestinal: normoactive bowel sounds Integumentary: no rash Neurologic: no focal deficit, alert and oriented x3, strength 5/5, CN 3-12 intact Psychiatric: mood/affect appropriate, cooperative - Lab 11/20/18 06:04 11/20/18 06:04 Most recent lab results Calcium 8.7 mg/dL (8.4-10.2) 11/20/18 06:04 Urine Creatinine 37.6 mg/dL (0.1-20.0) H 11/20/18 14:48 Urine Sodium 129 mmol/L 11/20/18 14:48 Medications & Allergies - Medications Allergies/Adverse Reactions: Allergies methadone Adverse Reaction (Verified 08/08/17 20:43) Vomiting tramadol Adverse Reaction (Verified 08/08/17 20:43) Vomiting unknown Allergy (Uncoded 08/08/17 20:43) Unknown PT DOES NOT NAME OR TYPE OF MEDICATION THAT SHE IS ALLERGIC TO. Home Medications: Home Medications Medication Instructions Recorded Confirmed Last Taken Type Pantoprazole Sodium [Protonix] 40 mg PO QAM 01/19/15 11/19/18 06/20/16 History Carvedilol [Coreg] 6.25 mg PO BID #60 tablet 05/22/18 11/19/18 Unknown Rx Pravastatin Sodium [Pravachol] 40 mg PO HS #30 tablet 05/22/18 11/19/18 Unknown Rx Furosemide [Lasix TAB] 40 mg PO DAILY 11/19/18 11/19/18 Unknown History L. Acidophilus/Bifid. Animalis 1 each PO DAILY 11/19/18 11/19/18 Unknown History [Dialyvite Chewable Probiotic] Lisinopril/Hydrochlorothiazide 1 tab PO DAILY 11/19/18 11/19/18 Unknown History [Zestoretic 20-25 mg] amLODIPine [Norvasc] 5 mg PO DAILY 11/19/18 11/19/18 Unknown History Active Medications: Generic Name Dose Route Start Last Admin Trade Name Freq PRN Reason Stop Dose Admin Acetaminophen 650 mg 11/19/18 15:11 Tylenol PO Q4H PRN Pain MILD(1-3)/Fever >100.5/ALVARADO Albuterol 2.5 mg 11/19/18 15:11 Proventil IH Q4HRT PRN Shortness Of Breath Amlodipine Besylate 5 mg 11/20/18 10:00 11/21/18 09:42 Norvasc PO 5 mg DAILY MUNA Administration Carvedilol 6.25 mg 11/19/18 22:00 11/21/18 09:42 Coreg PO 6.25 mg BID MUNA Administration Dextrose 50 ml 11/20/18 09:30 D50w (25gm) Syringe IV PRN PRN Hypoglycemia Donepezil HCl 10 mg 11/19/18 22:00 11/20/18 21:48 Aricept PO 10 mg QHS MUNA Administration Furosemide 40 mg 11/20/18 10:00 11/21/18 09:41 Lasix PO 40 mg DAILY MUNA Administration Heparin Sodium (Porcine) 5,000 unit 11/20/18 22:00 11/21/18 09:40 Heparin SUB-Q 5,000 unit Q12HR MUNA Administration Hydralazine HCl 10 mg 11/19/18 15:50 Apresoline IV Q6HR PRN Hypertension Insulin Glargine 15 units 11/20/18 22:00 11/20/18 21:49 Lantus SUB-Q 15 units QHS MUNA Administration Insulin Human Lispro 0 unit 11/20/18 11:30 11/21/18 15:05 Humalog SUB-Q Not Given ACHS [facility] Protocol Levofloxacin 250 mg 11/22/18 10:00 Levaquin PO DAILY [facility] Lisinopril 20 mg 11/19/18 17:00 11/21/18 09:41 Zestril PO 20 mg QDAY MUNA Administration Ondansetron HCl 4 mg 11/19/18 15:11 11/20/18 23:49 Zofran IV 4 mg Q8H PRN Administration Nausea And Vomiting Pantoprazole Sodium 40 mg 11/20/18 10:00 11/21/18 09:41 Protonix PO 40 mg QAM MUNA Administration Pravastatin Sodium 40 mg 11/19/18 22:00 11/20/18 21:48 Pravachol PO 40 mg HS MUNA Administration Sodium Chloride 10 ml 11/19/18 22:00 11/21/18 09:42 Sodium Chloride Flush Syringe 10 Ml IV 10 ml BID MUNA Administration Sodium Chloride 10 ml 11/19/18 15:11 Sodium Chloride Flush Syringe 10 Ml IV PRN PRN LINE FLUSH
[2018-11-21] MEDS: PRAVACHOL PO SCH (22:14)
[2018-11-21] MEDS: ARICEPT PO SCH (22:14)
[2018-11-21] MEDS: LANTUS SUB-Q SCH (23:11)
[2018-11-22] MEDS: HumaLOG SUB-Q SCH ×4 (08:30→22:32)
[2018-11-22] MEDS: HEPARIN SUB-Q SCH ×2 (09:44→22:31)
[2018-11-22] MEDS: PROTONIX PO SCH (09:45)
[2018-11-22] MEDS: SODIUM CHLORIDE FLUSH SYRINGE 10 ML IV SCH ×2 (09:45→22:33)
[2018-11-22] MEDS: ZESTRIL PO SCH (09:46)
[2018-11-22] MEDS: LEVAQUIN PO SCH (09:46)
[2018-11-22] MEDS: LASIX PO SCH (09:46)
[2018-11-22] MEDS: NORVASC PO SCH (09:46)
[2018-11-22] MEDS: COREG PO SCH ×2 (09:46→22:32)
--- NOTE | 2018-11-22 10:21 | Progress Note ---
Assessment and Plan Assessment and plan: 77 YO Female with DM, HTN, Dementia, Debility, CKD on HD (Discontinued 2 weeks ago), CHF, DM2 with neuropathy, who presented to ED for evaluation. she was brought to hospital by her . Pt reports that patient has experienced worsening confusion, lethargy, worsening short term memory loss, generalized weakness over the past 1 month with progressively worsening symptoms over the past 2 weeks. Pt is requires increased assistance with activities of daily living as well as increased verbal prompting and redirection. Acute Metabolic Encephalopthy EDRD- previously on HD; Lt AV fistula CKD3 acute on chronic Diastolic CHF Hyperkalemia Sinusitis Dementia DM 2 wit neuropathy ataxia, debility hospital course she was diuresed, her insulins were optimized, BP meds were adjusted she received kayexalate for high K she received PT, FATOUMATA was offered to patient and her dvt History Interval history: Review of systems Constitutional: No fevers, no malaise, no joint pains CVS: No chest pain, no orthopnea, no dyspnea on exertion, no pedal edema GI: No abdominal pain, no diarrhea, no vomiting, no constipation Respiratory: No shortness of breath, no wheezing, no coughing Hospitalist Physical - Physical exam Narrative exam: General.: Appears well, no distress, nontoxic HEENT: Moist mucous membranes, extraocular muscles intact, no lymphadenopathy Neck: supple Cardiac: S1-S2 heard Lungs: clear to auscultation bilaterally Abdomen: soft , nontender, nondistended, bowel sounds positive Extremities: no edema clubbing or cyanosis Skin: no rash or lesions Neurologic: no gross focal deficits Psych: calm, and cooperative - Constitutional Vitals: Temp Pulse Resp BP Pulse Ox 98.2 F 81 20 166/74 94 11/22/18 07:14 11/22/18 09:46 11/22/18 07:14 11/22/18 09:46 11/22/18 09:17 General appearance: Present: no acute distress Results - Labs CBC & Chem 7: 11/22/18 18:35 11/24/18 02:44 Labs: Laboratory Last Values WBC 10.3 K/mm3 (4.5-11.0) 11/20/18 06:04 RBC 3.68 M/mm3 (3.65-5.03) 11/20/18 06:04 Hgb 11.1 gm/dl (10.1-14.3) 11/20/18 06:04 Hct 34.3 % (30.3-42.9) 11/20/18 06:04 MCV 93 fl (79-97) 11/20/18 06:04 MCH 30 pg (28-32) 11/20/18 06:04 MCHC 32 % (30-34) 11/20/18 06:04 RDW 13.9 % (13.2-15.2) 11/20/18 06:04 Plt Count 213 K/mm3 (140-440) 11/20/18 06:04 Lymph % (Auto) 23.2 % (13.4-35.0) 11/19/18 10:23 [place] % (Auto) 5.9 % (0.0-7.3) 11/19/18 10:23 Eos % (Auto) 4.0 % (0.0-4.3) 11/19/18 10:23 Baso % (Auto) 0.6 % (0.0-1.8) 11/19/18 10:23 Lymph # 1.4 K/mm3 (1.2-5.4) 11/19/18 10:23 [place] # 0.4 K/mm3 (0.0-0.8) 11/19/18 10:23 Eos # 0.2 K/mm3 (0.0-0.4) 11/19/18 10:23 Baso # 0.0 K/mm3 (0.0-0.1) 11/19/18 10:23 Add Manual Diff Complete 11/20/18 06:04 Total Counted 100 11/20/18 06:04 Seg Neutrophils % 66.3 % (40.0-70.0) 11/19/18 10:23 Seg Neuts % (Manual) 72.0 % (40.0-70.0) H 11/20/18 06:04 Band Neutrophils % 0 % 11/20/18 06:04 Lymphocytes % (Manual) 20.0 % (13.4-35.0) 11/20/18 06:04 Reactive Lymphs % (Man) 0 % 11/20/18 06:04 Monocytes % (Manual) 2.0 % (0.0-7.3) 11/20/18 06:04 Eosinophils % (Manual) 6.0 % (0.0-4.3) H 11/20/18 06:04 Basophils % (Manual) 0 % (0.0-1.8) 11/20/18 06:04 Metamyelocytes % 0 % 11/20/18 06:04 Myelocytes % 0 % 11/20/18 06:04 Promyelocytes % 0 % 11/20/18 06:04 Blast Cells % 0 % 11/20/18 06:04 Nucleated RBC % 1.0 % (0.0-0.9) H 11/20/18 06:04 Seg Neutrophils # 4.0 K/mm3 (1.8-7.7) 11/19/18 10:23 Seg Neutrophils # Man 7.4 K/mm3 (1.8-7.7) 11/20/18 06:04 Band Neutrophils # 0.0 K/mm3 11/20/18 06:04 Lymphocytes # (Manual) 2.1 K/mm3 (1.2-5.4) 11/20/18 06:04 Abs React Lymphs (Man) 0.0 K/mm3 11/20/18 06:04 Monocytes # (Manual) 0.2 K/mm3 (0.0-0.8) 11/20/18 06:04 Eosinophils # (Manual) 0.6 K/mm3 (0.0-0.4) H 11/20/18 06:04 Basophils # (Manual) 0.0 K/mm3 (0.0-0.1) 11/20/18 06:04 Metamyelocytes # 0.0 K/mm3 11/20/18 06:04 Myelocytes # 0.0 K/mm3 11/20/18 06:04 Promyelocytes # 0.0 K/mm3 11/20/18 06:04 Blast Cells # 0.0 K/mm3 11/20/18 06:04 WBC Morphology Not Reportable 11/20/18 06:04 Hypersegmented Neuts Not Reportable 11/20/18 06:04 Hyposegmented Neuts Not Reportable 11/20/18 06:04 Hypogranular Neuts Not Reportable 11/20/18 06:04 Smudge Cells Not Reportable 11/20/18 06:04 Toxic Granulation Not Reportable 11/20/18 06:04 Toxic Vacuolation Not Reportable 11/20/18 06:04 Dohle Bodies Not Reportable 11/20/18 06:04 Pelger-Huet Anomaly Not Reportable 11/20/18 06:04 Anastasiya Rods Not Reportable 11/20/18 06:04 Platelet Estimate Consistent w auto 11/20/18 06:04 Clumped Platelets Not Reportable 11/20/18 06:04 Plt Clumps, EDTA Not Reportable 11/20/18 06:04 Large Platelets Not Reportable 11/20/18 06:04 Giant Platelets Not Reportable 11/20/18 06:04 Platelet Satelliting Not Reportable 11/20/18 06:04 Plt Morphology Comment Not Reportable 11/20/18 06:04 RBC Morphology Normal 11/20/18 06:04 Dimorphic RBCs Not Reportable 11/20/18 06:04 Polychromasia Not Reportable 11/20/18 06:04 Hypochromasia Not Reportable 11/20/18 06:04 Poikilocytosis Not Reportable 11/20/18 06:04 Anisocytosis Not Reportable 11/20/18 06:04 Microcytosis Not Reportable 11/20/18 06:04 Macrocytosis Not Reportable 11/20/18 06:04 Spherocytes Not Reportable 11/20/18 06:04 Pappenheimer Bodies Not Reportable 11/20/18 06:04 Sickle Cells Not Reportable 11/20/18 06:04 Target Cells Not Reportable 11/20/18 06:04 Tear Drop Cells Not Reportable 11/20/18 06:04 Ovalocytes Not Reportable 11/20/18 06:04 Helmet Cells Not Reportable 11/20/18 06:04 [place] Bodies Not Reportable 11/20/18 06:04 [place] Rings Not Reportable 11/20/18 06:04 Adrianne Cells Not Reportable 11/20/18 06:04 Bite Cells Not Reportable 11/20/18 06:04 Crenated Cell Not Reportable 11/20/18 06:04 Elliptocytes Not Reportable 11/20/18 06:04 Acanthocytes (Spur) Not Reportable 11/20/18 06:04 Rouleaux Not Reportable 11/20/18 06:04 Hemoglobin C Crystals Not Reportable 11/20/18 06:04 Schistocytes Not Reportable 11/20/18 06:04 Malaria parasites Not Reportable 11/20/18 06:04 [place] Bodies Not Reportable 11/20/18 06:04 Hem Pathologist Commnt No 11/20/18 06:04 Sodium 142 mmol/L (137-145) 11/20/18 06:04 Potassium 4.1 mmol/L (3.6-5.0) D 11/20/18 06:04 Chloride 105.5 mmol/L (98-107) 11/20/18 06:04 Carbon Dioxide 21 mmol/L (22-30) L 11/20/18 06:04 Anion Gap 20 mmol/L 11/20/18 06:04 BUN 28 mg/dL (7-17) H 11/20/18 06:04 Creatinine 1.7 mg/dL (0.7-1.2) H 11/20/18 06:04 Estimated GFR 35 ml/min 11/20/18 06:04 BUN/Creatinine Ratio 16 % 11/20/18 06:04 Glucose 327 mg/dL (65-100) H 11/20/18 06:04 POC Glucose 160 (70-105) H 11/22/18 07:19 Hemoglobin A1c 9.0 % (4-6) H 11/21/18 04:50 Lactic Acid 0.40 mmol/L (0.7-2.0) L 11/19/18 10:23 Calcium 8.7 mg/dL (8.4-10.2) 11/20/18 06:04 Total Bilirubin 0.50 mg/dL (0.1-1.2) 11/19/18 10:23 AST 34 units/L (5-40) 11/19/18 10:23 ALT 38 units/L (7-56) 11/19/18 10:23 Alkaline Phosphatase 302 units/L (35-129) H 11/19/18 10:23 Ammonia 35.0 umol/L (25-60) 11/19/18 10:23 Total Protein 7.7 g/dL (6.3-8.2) 11/19/18 10:23 Albumin 3.7 g/dL (3.9-5) L 11/19/18 10:23 Albumin/Globulin Ratio 0.9 % 11/19/18 10:23 TSH 1.120 mlU/mL (0.270-4.200) 11/19/18 10:23 Urine Color Straw (Yellow) 11/20/18 14:47 Urine Turbidity Clear (Clear) 11/20/18 14:47 Urine pH 6.0 (5.0-7.0) 11/20/18 14:47 Ur Specific [place] 1.009 (1.003-1.030) 11/20/18 14:47 Urine Protein 100 mg/dl mg/dL (Negative) 11/20/18 14:47 Urine Glucose (UA) 50 mg/dL (Negative) 11/20/18 14:47 Urine Ketones Neg mg/dL (Negative) 11/20/18 14:47 Urine Blood Mod (Negative) 11/20/18 14:47 Urine Nitrite Neg (Negative) 11/20/18 14:47 Urine Bilirubin Neg (Negative) 11/20/18 14:47 Urine Urobilinogen < 2.0 mg/dL (<2.0) 11/20/18 14:47 Ur Leukocyte Esterase Neg (Negative) 11/20/18 14:47 Urine WBC (Auto) < 1.0 /HPF (0.0-6.0) 11/20/18 14:47 Urine RBC (Auto) 2.0 /HPF (0.0-6.0) 11/20/18 14:47 U Epithel Cells (Auto) 1.0 /HPF (0-13.0) 11/20/18 14:47 Urine Creatinine 37.6 mg/dL (0.1-20.0) H 11/20/18 14:48 Urine Sodium 129 mmol/L 11/20/18 14:48 Plasma/Serum Alcohol < 0.01 % (0-0.07) 11/19/18 10:23 Active Medications - Current Medications Current Medications: Generic Name Dose Route Start Last Admin Trade Name Freq PRN Reason Stop Dose Admin Acetaminophen 650 mg 11/19/18 15:11 Tylenol PO Q4H PRN Pain MILD(1-3)/Fever >100.5/ALVARADO Albuterol 2.5 mg 11/19/18 15:11 Proventil IH Q4HRT PRN Shortness Of Breath Amlodipine Besylate 5 mg 11/20/18 10:00 11/22/18 09:46 Norvasc PO 5 mg DAILY MUNA Administration Carvedilol 6.25 mg 11/19/18 22:00 11/22/18 09:46 Coreg PO 6.25 mg BID MUNA Administration Dextrose 50 ml 11/20/18 09:30 D50w (25gm) Syringe IV PRN PRN Hypoglycemia Donepezil HCl 10 mg 11/19/18 22:00 11/21/18 22:14 Aricept PO 10 mg QHS MUNA Administration Furosemide 40 mg 11/20/18 10:00 11/22/18 09:46 Lasix PO 40 mg DAILY MUNA Administration Heparin Sodium (Porcine) 5,000 unit 11/20/18 22:00 11/22/18 09:44 Heparin SUB-Q 5,000 unit Q12HR MUNA Administration Hydralazine HCl 10 mg 11/19/18 15:50 Apresoline IV Q6HR PRN Hypertension Insulin Glargine 15 units 11/20/18 22:00 11/21/18 23:11 Lantus SUB-Q 15 units QHS MUNA Administration Insulin Human Lispro 0 unit 11/20/18 11:30 11/22/18 08:30 Humalog SUB-Q 2 unit ACHS MUNA Administration Protocol Levofloxacin 250 mg 11/22/18 10:00 11/22/18 09:46 Levaquin PO 250 mg DAILY MUNA Administration Lisinopril 20 mg 11/19/18 17:00 11/22/18 09:46 Zestril PO 20 mg QDAY MUNA Administration Ondansetron HCl 4 mg 11/19/18 15:11 11/20/18 23:49 Zofran IV 4 mg Q8H PRN Administration Nausea And Vomiting Pantoprazole Sodium 40 mg 11/20/18 10:00 11/22/18 09:45 Protonix PO 40 mg QAM MUNA Administration Pravastatin Sodium 40 mg 11/19/18 22:00 11/21/18 22:14 Pravachol PO 40 mg HS MUNA Administration Sodium Chloride 10 ml 11/19/18 22:00 11/22/18 09:45 Sodium Chloride Flush Syringe 10 Ml IV 10 ml BID MUNA Administration Sodium Chloride 10 ml 11/19/18 15:11 Sodium Chloride Flush Syringe 10 Ml IV PRN PRN LINE FLUSH Nutrition/Malnutrition Assess - Dietary Evaluation Nutrition/Malnutrition Findings: Nutrition Notes Start: 11/20/18 13:33 Freq: Status: Active Protocol: Document 11/20/18 13:33 RM (Rec: 11/20/18 13:43 RM [id number]) Nutrition Notes 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 Pt stated that her appetite is good and that she eats most of her meals. Denied chewing difficulty. Pt tech confirmed that pt ate all of breakfast this morning but only ate 25% of lunch. Stated that pt said she was full. Burn Absent Trauma Absent #1 Nutrition Diagnosis Inadequate oral intake Etiology dementia, encephalopathy As Evidenced by Signs and Symptoms pt tech statement that pt ate 25% of lunch Is patient on ventilator? No Is Patient Ambulatory and/or Out of Bed Yes REE-(Armstrong-St. Jeor-ambulatory/OOB) [ 1615.744 [id number]] Calculation Used for Recommendations [facility] Additional Notes Protein Needs: 75-98g (1-1.3g/ kg) Fluid Needs: 1 ml/kcal Nutrition Intervention Change Diet Order: Continue current Add Supplement/Snack (indicate name/kcal Glucerna 1 daily /protein ) Provides kCal: 220 Provides Protein (gm) 10 Goal #1 Meet at least 75% of calorie and protein needs via PO and ONS intakes Anticipated Discharge Needs: Renal Follow-Up By: 11/25/18 Additional Comments Follow for PO and ONS intakes
[2018-11-22] MEDS: ZOFRAN IV PRN (12:22)
--- NOTE | 2018-11-22 15:23 | Progress Note ---
Assessment and Plan - Patient Problems (1) Altered mental status Current Visit: Yes Status: Acute Qualifiers: Altered mental status type: unspecified Qualified Code(s): R41.82 - Altered mental status, unspecified Plan to address problem: Resolved. Patient back to close to baseline (2) Chronic kidney disease, stage III (moderate) Current Visit: Yes Status: Acute Plan to address problem: Patient's was on hemodialysis in the past but kidney function improved to stage III chronic kidney disease. Kidney function is stable at baseline. (3) Diastolic CHF Current Visit: Yes Status: Acute Qualifiers: Heart failure chronicity: chronic Qualified Code(s): I50.32 - Chronic diastolic (congestive) heart failure Plan to address problem: Stable. No volume overload now (4) Hyperkalemia Current Visit: Yes Status: Acute Plan to address problem: Potassium was high on presentation. Improved with medical management. (5) Hypertensive chronic kidney disease with stage 1 through stage 4 chronic kidney disease, or unspecified chronic kidney disease Current Visit: Yes Status: Acute Plan to address problem: Systolic blood pressure is a bit elevated. Adjust medications and follow blood pressure Subjective Date of service: 11/22/18 Principal diagnosis: CKD Interval history: Patient seen lying in bed. No C/o Wants to go home and at bedside Objective - Exam Narrative Exam: Elderly -[place] female lying in bed in no acute distress HEENT: NCAT, pink oral mucous membrane Neck: Supple, no venous distention CVS: S1S2 RRR with no murmur, rub or gallop Chest: Clear to auscultation Abdomen: Protuberant, soft, nontender, no organomegaly, bowel sounds are present Extremities: No edema Neuro: Awake, alert no focal deficits - Vital Signs Vital signs: Vital Signs - 12hr 11/22/18 11/22/18 11/22/18 07:14 08:53 09:17 Temperature 98.2 F Pulse Rate 81 Pulse Rate [ 86 Apical] Respiratory 20 Rate Blood Pressure 166/74 O2 Sat by Pulse 95 94 94 Oximetry 11/22/18 09:46 Temperature Pulse Rate 81 Pulse Rate [ Apical] Respiratory Rate Blood Pressure 166/74 O2 Sat by Pulse Oximetry - Lab 11/20/18 06:04 11/20/18 06:04 Most recent lab results Calcium 8.7 mg/dL (8.4-10.2) 11/20/18 06:04 Urine Creatinine 37.6 mg/dL (0.1-20.0) H 11/20/18 14:48 Urine Sodium 129 mmol/L 11/20/18 14:48 Medications & Allergies - Medications Allergies/Adverse Reactions: Allergies methadone Adverse Reaction (Verified 08/08/17 20:43) Vomiting tramadol Adverse Reaction (Verified 08/08/17 20:43) Vomiting unknown Allergy (Uncoded 08/08/17 20:43) Unknown PT DOES NOT NAME OR TYPE OF MEDICATION THAT SHE IS ALLERGIC TO. Home Medications: Home Medications Medication Instructions Recorded Confirmed Last Taken Type RX: Pantoprazole Sodium [Protonix] 40 mg PO QAM 01/19/15 11/19/18 06/20/16 History RX: Carvedilol [Coreg] 6.25 mg PO BID #60 tablet 05/22/18 11/19/18 Unknown Rx RX: Pravastatin Sodium [Pravachol] 40 mg PO HS #30 tablet 05/22/18 11/19/18 Unknown Rx L. Acidophilus/Bifid. Animalis 1 each PO DAILY 11/19/18 11/19/18 Unknown History [Dialyvite Chewable Probiotic] Lisinopril/Hydrochlorothiazide 1 tab PO DAILY 11/19/18 11/19/18 Unknown History [Zestoretic 20-25 mg] RX: Furosemide [Lasix TAB] 40 mg PO DAILY 11/19/18 11/19/18 Unknown History amLODIPine [Norvasc] 5 mg PO DAILY 11/19/18 11/19/18 Unknown History Active Medications: Generic Name Dose Route Start Last Admin Trade Name Freq PRN Reason Stop Dose Admin Acetaminophen 650 mg 11/19/18 15:11 Tylenol PO Q4H PRN Pain MILD(1-3)/Fever >100.5/ALVARADO Albuterol 2.5 mg 11/19/18 15:11 Proventil IH Q4HRT PRN Shortness Of Breath Amlodipine Besylate 5 mg 11/20/18 10:00 11/22/18 09:46 Norvasc PO 5 mg DAILY MUNA Administration Carvedilol 6.25 mg 11/19/18 22:00 11/22/18 09:46 Coreg PO 6.25 mg BID MUNA Administration Dextrose 50 ml 11/20/18 09:30 D50w (25gm) Syringe IV PRN PRN Hypoglycemia Donepezil HCl 10 mg 11/19/18 22:00 11/21/18 22:14 Aricept PO 10 mg QHS MUNA Administration Furosemide 40 mg 11/20/18 10:00 11/22/18 09:46 Lasix PO 40 mg DAILY MUNA Administration Heparin Sodium (Porcine) 5,000 unit 11/20/18 22:00 11/22/18 09:44 Heparin SUB-Q 5,000 unit Q12HR MUNA Administration Hydralazine HCl 10 mg 11/19/18 15:50 Apresoline IV Q6HR PRN Hypertension Insulin Glargine 15 units 11/20/18 22:00 11/21/18 23:11 Lantus SUB-Q 15 units QHS MUNA Administration Insulin Human Lispro 0 unit 11/20/18 11:30 11/22/18 08:30 Humalog SUB-Q 2 unit ACHS MUNA Administration Protocol Levofloxacin 250 mg 11/22/18 10:00 11/22/18 09:46 Levaquin PO 250 mg DAILY MUNA Administration Lisinopril 20 mg 11/19/18 17:00 11/22/18 09:46 Zestril PO 20 mg QDAY MUNA Administration Ondansetron HCl 4 mg 11/19/18 15:11 11/22/18 12:22 Zofran IV 4 mg Q8H PRN Administration Nausea And Vomiting Pantoprazole Sodium 40 mg 11/20/18 10:00 11/22/18 09:45 Protonix PO 40 mg QAM MUNA Administration Pravastatin Sodium 40 mg 11/19/18 22:00 11/21/18 22:14 Pravachol PO 40 mg HS MUNA Administration Sodium Chloride 10 ml 11/19/18 22:00 11/22/18 09:45 Sodium Chloride Flush Syringe 10 Ml IV 10 ml BID MUNA Administration Sodium Chloride 10 ml 11/19/18 15:11 Sodium Chloride Flush Syringe 10 Ml IV PRN PRN LINE FLUSH
[2018-11-22 19:38] LABS: Calcium 8.6 mg/dL (8.4-10.2)
[2018-11-22 19:40] LABS: Hematocrit 36.6 % (30.3-42.9); Hemoglobin 11.6 gm/dl (10.1-14.3); Mean Corpuscular HGB Conc 32 % (30-34); Mean Corpuscular Volume 100 fl (79-97); Platelet Count 237 K/mm3 (140-440); Red Blood Count 3.68 M/mm3 (3.65-5.03); Red Cell Distribution Width 15.4 % (13.2-15.2)
[2018-11-22] MEDS: ARICEPT PO SCH (22:31)
[2018-11-22] MEDS: PRAVACHOL PO SCH (22:32)
[2018-11-22] MEDS: LANTUS SUB-Q SCH (22:32)
[2018-11-23] MEDS: ZOFRAN IV PRN (01:32)
[2018-11-23] MEDS: HumaLOG SUB-Q SCH ×4 (08:13→22:57)
[2018-11-23] MEDS: NORVASC PO SCH (10:53)
[2018-11-23] MEDS: LEVAQUIN PO SCH (10:53)
[2018-11-23] MEDS: LASIX PO SCH (10:53)
[2018-11-23] MEDS: PROTONIX PO SCH (10:53)
[2018-11-23] MEDS: ZESTRIL PO SCH (10:54)
[2018-11-23] MEDS: COREG PO SCH ×2 (10:54→21:35)
[2018-11-23] MEDS: HEPARIN SUB-Q SCH ×2 (10:54→21:35)
[2018-11-23] MEDS: SODIUM CHLORIDE FLUSH SYRINGE 10 ML IV SCH ×2 (10:55→21:36)
--- NOTE | 2018-11-23 14:52 | Progress Note ---
Assessment and Plan Assessment and plan: 77 YO Female with DM, HTN, Dementia, Debility, CKD on HD (Discontinued 2 weeks ago), CHF, DM2 with neuropathy, who presented to ED for evaluation. she was brought to hospital by her . Pt reports that patient has experienced worsening confusion, lethargy, worsening short term memory loss, generalized weakness over the past 1 month with progressively worsening symptoms over the past 2 weeks. Pt is requires increased assistance with activities of daily living as well as increased verbal prompting and redirection. Acute Metabolic Encephalopthy EDRD- previously on HD; Lt AV fistula CKD3 acute on chronic Diastolic CHF Hyperkalemia Sinusitis Dementia DM 2 wit neuropathy ataxia, debility hospital course she was diuresed, her insulins were optimized, BP meds were adjusted she received kayexalate for high K she received PT, FATOUMATA was offered to patient and her dvt History Interval history: Review of systems Constitutional: No fevers, no malaise, no joint pains CVS: No chest pain, no orthopnea, no dyspnea on exertion, no pedal edema GI: No abdominal pain, no diarrhea, no vomiting, no constipation Respiratory: No shortness of breath, no wheezing, no coughing Hospitalist Physical - Physical exam Narrative exam: General.: Appears well, no distress, nontoxic HEENT: Moist mucous membranes, extraocular muscles intact, no lymphadenopathy Neck: supple Cardiac: S1-S2 heard Lungs: clear to auscultation bilaterally Abdomen: soft , nontender, nondistended, bowel sounds positive Extremities: no edema clubbing or cyanosis Skin: no rash or lesions Neurologic: no gross focal deficits Psych: calm, and cooperative - Constitutional Vitals: Temp Pulse Resp BP Pulse Ox 98.2 F 70 18 146/53 99 11/23/18 13:32 11/23/18 13:32 11/23/18 13:32 11/23/18 13:32 11/23/18 13:32 General appearance: Present: no acute distress Results - Labs CBC & Chem 7: 11/22/18 18:35 11/24/18 02:44 Labs: Laboratory Last Values WBC 6.9 K/mm3 (4.5-11.0) 11/22/18 18:35 RBC 3.68 M/mm3 (3.65-5.03) 11/22/18 18:35 Hgb 11.6 gm/dl (10.1-14.3) 11/22/18 18:35 Hct 36.6 % (30.3-42.9) 11/22/18 18:35 MCV 100 fl (79-97) H 11/22/18 18:35 MCH 32 pg (28-32) 11/22/18 18:35 MCHC 32 % (30-34) 11/22/18 18:35 RDW 15.4 % (13.2-15.2) H 11/22/18 18:35 Plt Count 237 K/mm3 (140-440) 11/22/18 18:35 Lymph % (Auto) Strip Machine Operator 11/22/18 18:35 Gillespie % (Auto) Strip Machine Operator 11/22/18 18:35 Eos % (Auto) Strip Machine Operator 11/22/18 18:35 Baso % (Auto) Strip Machine Operator 11/22/18 18:35 Lymph # Strip Machine Operator 11/22/18 18:35 Gillespie # Strip Machine Operator 11/22/18 18:35 Eos # Strip Machine Operator 11/22/18 18:35 Baso # Strip Machine Operator 11/22/18 18:35 Add Manual Diff Complete 11/20/18 06:04 Total Counted 100 11/20/18 06:04 Seg Neutrophils % Strip Machine Operator 11/22/18 18:35 Seg Neuts % (Manual) 72.0 % (40.0-70.0) H 11/20/18 06:04 Band Neutrophils % 0 % 11/20/18 06:04 Lymphocytes % (Manual) 20.0 % (13.4-35.0) 11/20/18 06:04 Reactive Lymphs % (Man) 0 % 11/20/18 06:04 Monocytes % (Manual) 2.0 % (0.0-7.3) 11/20/18 06:04 Eosinophils % (Manual) 6.0 % (0.0-4.3) H 11/20/18 06:04 Basophils % (Manual) 0 % (0.0-1.8) 11/20/18 06:04 Metamyelocytes % 0 % 11/20/18 06:04 Myelocytes % 0 % 11/20/18 06:04 Promyelocytes % 0 % 11/20/18 06:04 Blast Cells % 0 % 11/20/18 06:04 Nucleated RBC % 1.0 % (0.0-0.9) H 11/20/18 06:04 Seg Neutrophils # Strip Machine Operator 11/22/18 18:35 Seg Neutrophils # Man 7.4 K/mm3 (1.8-7.7) 11/20/18 06:04 Band Neutrophils # 0.0 K/mm3 11/20/18 06:04 Lymphocytes # (Manual) 2.1 K/mm3 (1.2-5.4) 11/20/18 06:04 Abs React Lymphs (Man) 0.0 K/mm3 11/20/18 06:04 Monocytes # (Manual) 0.2 K/mm3 (0.0-0.8) 11/20/18 06:04 Eosinophils # (Manual) 0.6 K/mm3 (0.0-0.4) H 11/20/18 06:04 Basophils # (Manual) 0.0 K/mm3 (0.0-0.1) 11/20/18 06:04 Metamyelocytes # 0.0 K/mm3 11/20/18 06:04 Myelocytes # 0.0 K/mm3 11/20/18 06:04 Promyelocytes # 0.0 K/mm3 11/20/18 06:04 Blast Cells # 0.0 K/mm3 11/20/18 06:04 WBC Morphology Not Reportable 11/20/18 06:04 Hypersegmented Neuts Not Reportable 11/20/18 06:04 Hyposegmented Neuts Not Reportable 11/20/18 06:04 Hypogranular Neuts Not Reportable 11/20/18 06:04 Smudge Cells Not Reportable 11/20/18 06:04 Toxic Granulation Not Reportable 11/20/18 06:04 Toxic Vacuolation Not Reportable 11/20/18 06:04 Dohle Bodies Not Reportable 11/20/18 06:04 Pelger-Huet Anomaly Not Reportable 11/20/18 06:04 Anastasiya Rods Not Reportable 11/20/18 06:04 Platelet Estimate Consistent w auto 11/20/18 06:04 Clumped Platelets Not Reportable 11/20/18 06:04 Plt Clumps, EDTA Not Reportable 11/20/18 06:04 Large Platelets Not Reportable 11/20/18 06:04 Giant Platelets Not Reportable 11/20/18 06:04 Platelet Satelliting Not Reportable 11/20/18 06:04 Plt Morphology Comment Not Reportable 11/20/18 06:04 RBC Morphology Normal 11/20/18 06:04 Dimorphic RBCs Not Reportable 11/20/18 06:04 Polychromasia Not Reportable 11/20/18 06:04 Hypochromasia Not Reportable 11/20/18 06:04 Poikilocytosis Not Reportable 11/20/18 06:04 Anisocytosis Not Reportable 11/20/18 06:04 Microcytosis Not Reportable 11/20/18 06:04 Macrocytosis Not Reportable 11/20/18 06:04 Spherocytes Not Reportable 11/20/18 06:04 Pappenheimer Bodies Not Reportable 11/20/18 06:04 Sickle Cells Not Reportable 11/20/18 06:04 Target Cells Not Reportable 11/20/18 06:04 Tear Drop Cells Not Reportable 11/20/18 06:04 Ovalocytes Not Reportable 11/20/18 06:04 Helmet Cells Not Reportable 11/20/18 06:04 [place] Bodies Not Reportable 11/20/18 06:04 [place] Rings Not Reportable 11/20/18 06:04 [place] Cells Not Reportable 11/20/18 06:04 Bite Cells Not Reportable 11/20/18 06:04 Crenated Cell Not Reportable 11/20/18 06:04 Elliptocytes Not Reportable 11/20/18 06:04 Acanthocytes (Spur) Not Reportable 11/20/18 06:04 Rouleaux Not Reportable 11/20/18 06:04 Hemoglobin C Crystals Not Reportable 11/20/18 06:04 Schistocytes Not Reportable 11/20/18 06:04 Malaria parasites Not Reportable 11/20/18 06:04 Remberto Bodies Not Reportable 11/20/18 06:04 Hem Pathologist Commnt No 11/20/18 06:04 Sodium 139 mmol/L (137-145) 11/22/18 18:35 Potassium 4.0 mmol/L (3.6-5.0) 11/22/18 18:35 Chloride 101.9 mmol/L (98-107) 11/22/18 18:35 Carbon Dioxide 21 mmol/L (22-30) L 11/22/18 18:35 Anion Gap 20 mmol/L 11/22/18 18:35 BUN 36 mg/dL (7-17) H 11/22/18 18:35 Creatinine 2.4 mg/dL (0.7-1.2) H 11/22/18 18:35 Estimated GFR 24 ml/min 11/22/18 18:35 BUN/Creatinine Ratio 15 % 11/22/18 18:35 Glucose 181 mg/dL (65-100) H 11/22/18 18:35 POC Glucose 230 (70-105) H 11/23/18 11:47 Hemoglobin A1c 9.0 % (4-6) H 11/21/18 04:50 Lactic Acid 0.40 mmol/L (0.7-2.0) L 11/19/18 10:23 Calcium 8.6 mg/dL (8.4-10.2) 11/22/18 18:35 Phosphorus 3.80 mg/dL (2.5-4.5) 11/22/18 18:35 Magnesium 1.70 mg/dL (1.7-2.3) 11/22/18 18:35 Total Bilirubin 0.50 mg/dL (0.1-1.2) 11/19/18 10:23 AST 34 units/L (5-40) 11/19/18 10:23 ALT 38 units/L (7-56) 11/19/18 10:23 Alkaline Phosphatase 302 units/L (35-129) H 11/19/18 10:23 Ammonia 35.0 umol/L (25-60) 11/19/18 10:23 Total Protein 7.7 g/dL (6.3-8.2) 11/19/18 10:23 Albumin 3.7 g/dL (3.9-5) L 11/19/18 10:23 Albumin/Globulin Ratio 0.9 % 11/19/18 10:23 TSH 1.120 mlU/mL (0.270-4.200) 11/19/18 10:23 Urine Color Straw (Yellow) 11/20/18 14:47 Urine Turbidity Clear (Clear) 11/20/18 14:47 Urine pH 6.0 (5.0-7.0) 11/20/18 14:47 Ur Specific [place] 1.009 (1.003-1.030) 11/20/18 14:47 Urine Protein 100 mg/dl mg/dL (Negative) 11/20/18 14:47 Urine Glucose (UA) 50 mg/dL (Negative) 11/20/18 14:47 Urine Ketones Neg mg/dL (Negative) 11/20/18 14:47 Urine Blood Mod (Negative) 11/20/18 14:47 Urine Nitrite Neg (Negative) 11/20/18 14:47 Urine Bilirubin Neg (Negative) 11/20/18 14:47 Urine Urobilinogen < 2.0 mg/dL (<2.0) 11/20/18 14:47 Ur Leukocyte Esterase Neg (Negative) 11/20/18 14:47 Urine WBC (Auto) < 1.0 /HPF (0.0-6.0) 11/20/18 14:47 Urine RBC (Auto) 2.0 /HPF (0.0-6.0) 11/20/18 14:47 U Epithel Cells (Auto) 1.0 /HPF (0-13.0) 11/20/18 14:47 Urine Creatinine 37.6 mg/dL (0.1-20.0) H 11/20/18 14:48 Urine Sodium 129 mmol/L 11/20/18 14:48 Plasma/Serum Alcohol < 0.01 % (0-0.07) 11/19/18 10:23 Active Medications - Current Medications Current Medications: Generic Name Dose Route Start Last Admin Trade Name Freq PRN Reason Stop Dose Admin Acetaminophen 650 mg 11/19/18 15:11 Tylenol PO Q4H PRN Pain MILD(1-3)/Fever >100.5/ALVARADO Albuterol 2.5 mg 11/19/18 15:11 Proventil IH Q4HRT PRN Shortness Of Breath Amlodipine Besylate 5 mg 11/20/18 10:00 11/23/18 10:53 Norvasc PO 5 mg DAILY MUNA Administration Carvedilol 12.5 mg 11/22/18 22:00 11/23/18 10:54 Coreg PO 12.5 mg BID MUNA Administration Dextrose 50 ml 11/20/18 09:30 D50w (25gm) Syringe IV PRN PRN Hypoglycemia Donepezil HCl 10 mg 11/19/18 22:00 11/22/18 22:31 Aricept PO 10 mg QHS MUNA Administration Furosemide 40 mg 11/20/18 10:00 11/23/18 10:53 Lasix PO 40 mg DAILY MUNA Administration Heparin Sodium (Porcine) 5,000 unit 11/20/18 22:00 11/23/18 10:54 Heparin SUB-Q 5,000 unit Q12HR MUNA Administration Hydralazine HCl 10 mg 11/19/18 15:50 Apresoline IV Q6HR PRN Hypertension Insulin Glargine 15 units 11/20/18 22:00 11/22/18 22:32 Lantus SUB-Q 15 units QHS MUNA Administration Insulin Human Lispro 0 unit 11/20/18 11:30 11/23/18 08:13 Humalog SUB-Q Not Given ACHS [facility] Protocol Levofloxacin 250 mg 11/22/18 10:00 11/23/18 10:53 Levaquin PO 250 mg DAILY MUNA Administration Lisinopril 20 mg 11/19/18 17:00 11/23/18 10:54 Zestril PO 20 mg QDAY MUNA Administration Ondansetron HCl 4 mg 11/19/18 15:11 11/23/18 01:32 Zofran IV 4 mg Q8H PRN Administration Nausea And Vomiting Pantoprazole Sodium 40 mg 11/20/18 10:00 11/23/18 10:53 Protonix PO 40 mg QAM MUNA Administration Pravastatin Sodium 40 mg 11/19/18 22:00 11/22/18 22:32 Pravachol PO 40 mg HS MUNA Administration Sodium Chloride 10 ml 11/19/18 22:00 11/23/18 10:55 Sodium Chloride Flush Syringe 10 Ml IV 10 ml BID MUNA Administration Sodium Chloride 10 ml 11/19/18 15:11 Sodium Chloride Flush Syringe 10 Ml IV PRN PRN LINE FLUSH Nutrition/Malnutrition Assess - Dietary Evaluation Nutrition/Malnutrition Findings: Nutrition Notes Start: 11/20/18 13:33 Freq: Status: Active Protocol: Document 11/20/18 13:33 RM (Rec: 11/20/18 13:43 RM [id number]) Nutrition Notes 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 Pt stated that her appetite is good and that she eats most of her meals. Denied chewing difficulty. Pt tech confirmed that pt ate all of breakfast this morning but only ate 25% of lunch. Stated that pt said she was full. Burn Absent Trauma Absent #1 Nutrition Diagnosis Inadequate oral intake Etiology dementia, encephalopathy As Evidenced by Signs and Symptoms pt tech statement that pt ate 25% of lunch Is patient on ventilator? No Is Patient Ambulatory and/or Out of Bed Yes REE-([facility]-ambulatory/OOB) [ [id number] [id number]] Calculation Used for Recommendations [facility] Additional Notes Protein Needs: 75-98g (1-1.3g/ kg) Fluid Needs: 1 ml/kcal Nutrition Intervention Change Diet Order: Continue current Add Supplement/Snack (indicate name/kcal Glucerna 1 daily /protein ) Provides kCal: 220 Provides Protein (gm) 10 Goal #1 Meet at least 75% of calorie and protein needs via PO and ONS intakes Anticipated Discharge Needs: Renal Follow-Up By: 11/25/18 Additional Comments Follow for PO and ONS intakes
[2018-11-23 16:13] LABS: Calcium 8.2 mg/dL (8.4-10.2)
--- NOTE | 2018-11-23 16:33 | Progress Note ---
Assessment and Plan - Patient Problems (1) Altered mental status Current Visit: Yes Status: Acute Qualifiers: Altered mental status type: unspecified Qualified Code(s): R41.82 - Altered mental status, unspecified Plan to address problem: Resolved. Patient back to about baseline. DC planning per Kailyn SHAY MD (2) Chronic kidney disease, stage III (moderate) Current Visit: Yes Status: Acute Plan to address problem: Patient's was on hemodialysis in the past but kidney function improved to stage III chronic kidney disease. Kidney function is stable at baseline. (3) Diastolic CHF Current Visit: Yes Status: Acute Qualifiers: Heart failure chronicity: chronic Qualified Code(s): I50.32 - Chronic diastolic (congestive) heart failure Plan to address problem: Stable. No volume overload now (4) Hyperkalemia Current Visit: Yes Status: Acute Plan to address problem: Potassium was high on presentation. Improved with medical management. (5) Hypertensive chronic kidney disease with stage 1 through stage 4 chronic kidney disease, or unspecified chronic kidney disease Current Visit: Yes Status: Acute Plan to address problem: BP has improved. Follow up BP on current medications Subjective Date of service: 11/23/18 Principal diagnosis: CKD Interval history: Patient seen lying in bed. No C/o. Wants to go home Objective - Exam Narrative Exam: Elderly -[place] female lying in bed in no acute distress HEENT: NCAT, pink oral mucous membrane Neck: Supple, no venous distention CVS: S1S2 RRR with no murmur, rub or gallop Chest: Clear to auscultation Abdomen: Protuberant, soft, nontender, no organomegaly, bowel sounds are present Extremities: No edema Neuro: Awake, alert no focal deficits - Vital Signs Vital signs: Vital Signs - 12hr 11/23/18 11/23/18 11/23/18 07:34 07:35 10:00 Temperature 98.3 F Pulse Rate 70 Respiratory 17 18 Rate Blood Pressure 134/57 O2 Sat by Pulse 95 90 94 Oximetry 11/23/18 11/23/18 11/23/18 10:53 10:54 13:32 Temperature 98.2 F Pulse Rate 70 70 70 Respiratory 18 Rate Blood Pressure 134/57 134/57 146/53 O2 Sat by Pulse 99 Oximetry - Lab 11/22/18 18:35 11/23/18 15:23 Most recent lab results Calcium 8.2 mg/dL (8.4-10.2) L 11/23/18 15:23 Phosphorus 3.80 mg/dL (2.5-4.5) 11/22/18 18:35 Magnesium 1.70 mg/dL (1.7-2.3) 11/22/18 18:35 Urine Creatinine 37.6 mg/dL (0.1-20.0) H 11/20/18 14:48 Urine Sodium 129 mmol/L 11/20/18 14:48 Medications & Allergies - Medications Allergies/Adverse Reactions: Allergies methadone Adverse Reaction (Verified 08/08/17 20:43) Vomiting tramadol Adverse Reaction (Verified 08/08/17 20:43) Vomiting unknown Allergy (Uncoded 08/08/17 20:43) Unknown PT DOES NOT NAME OR TYPE OF MEDICATION THAT SHE IS ALLERGIC TO. Home Medications: Home Medications Medication Instructions Recorded Confirmed Last Taken Type Pantoprazole Sodium [Protonix] 40 mg PO QAM 01/19/15 11/19/18 06/20/16 History Carvedilol [Coreg] 6.25 mg PO BID #60 tablet 05/22/18 11/19/18 Unknown Rx Pravastatin Sodium [Pravachol] 40 mg PO HS #30 tablet 05/22/18 11/19/18 Unknown Rx Furosemide [Lasix TAB] 40 mg PO DAILY 11/19/18 11/19/18 Unknown History L. Acidophilus/Bifid. Animalis 1 each PO DAILY 11/19/18 11/19/18 Unknown History [Dialyvite Chewable Probiotic] Lisinopril/Hydrochlorothiazide 1 tab PO DAILY 11/19/18 11/19/18 Unknown History [Zestoretic 20-25 mg] amLODIPine [Norvasc] 5 mg PO DAILY 11/19/18 11/19/18 Unknown History Active Medications: Generic Name Dose Route Start Last Admin Trade Name Freq PRN Reason Stop Dose Admin Acetaminophen 650 mg 11/19/18 15:11 Tylenol PO Q4H PRN Pain MILD(1-3)/Fever >100.5/ALVARADO Albuterol 2.5 mg 11/19/18 15:11 Proventil IH Q4HRT PRN Shortness Of Breath Amlodipine Besylate 5 mg 11/20/18 10:00 11/23/18 10:53 Norvasc PO 5 mg DAILY MUNA Administration Carvedilol 12.5 mg 11/22/18 22:00 11/23/18 10:54 Coreg PO 12.5 mg BID MUNA Administration Dextrose 50 ml 11/20/18 09:30 D50w (25gm) Syringe IV PRN PRN Hypoglycemia Donepezil HCl 10 mg 11/19/18 22:00 11/22/18 22:31 Aricept PO 10 mg QHS MUNA Administration Furosemide 40 mg 11/20/18 10:00 11/23/18 10:53 Lasix PO 40 mg DAILY MUNA Administration Heparin Sodium (Porcine) 5,000 unit 11/20/18 22:00 11/23/18 10:54 Heparin SUB-Q 5,000 unit Q12HR MUNA Administration Hydralazine HCl 10 mg 11/19/18 15:50 Apresoline IV Q6HR PRN Hypertension Insulin Glargine 15 units 11/20/18 22:00 11/22/18 22:32 Lantus SUB-Q 15 units QHS MUNA Administration Insulin Human Lispro 0 unit 11/20/18 11:30 11/23/18 08:13 Humalog SUB-Q Not Given ACHS [facility] Protocol Levofloxacin 250 mg 11/22/18 10:00 11/23/18 10:53 Levaquin PO 250 mg DAILY MUNA Administration Lisinopril 20 mg 11/19/18 17:00 11/23/18 10:54 Zestril PO 20 mg QDAY MUNA Administration Ondansetron HCl 4 mg 11/19/18 15:11 11/23/18 01:32 Zofran IV 4 mg Q8H PRN Administration Nausea And Vomiting Pantoprazole Sodium 40 mg 11/20/18 10:00 11/23/18 10:53 Protonix PO 40 mg QAM MUNA Administration Pravastatin Sodium 40 mg 11/19/18 22:00 11/22/18 22:32 Pravachol PO 40 mg HS MUNA Administration Sodium Chloride 10 ml 11/19/18 22:00 11/23/18 10:55 Sodium Chloride Flush Syringe 10 Ml IV 10 ml BID MUNA Administration Sodium Chloride 10 ml 11/19/18 15:11 Sodium Chloride Flush Syringe 10 Ml IV PRN PRN LINE FLUSH
[2018-11-23] MEDS: PRAVACHOL PO SCH (21:35)
[2018-11-23] MEDS: ARICEPT PO SCH (21:36)
[2018-11-23] MEDS: LANTUS SUB-Q SCH (21:38)
[2018-11-24 03:33] LABS: Calcium 8.2 mg/dL (8.4-10.2)
[2018-11-24 08:31] VITALS: BP 150/57
[2018-11-24] MEDS: HumaLOG SUB-Q SCH ×2 (08:42→11:46)
[2018-11-24] MEDS: LEVAQUIN PO SCH (10:07)
[2018-11-24] MEDS: PROTONIX PO SCH (10:07)
[2018-11-24] MEDS: ZESTRIL PO SCH (10:07)
[2018-11-24] MEDS: LASIX PO SCH (10:07)
[2018-11-24] MEDS: COREG PO SCH (10:07)
[2018-11-24] MEDS: NORVASC PO SCH (10:07)
[2018-11-24] MEDS: HEPARIN SUB-Q SCH (10:08)
--- NOTE | 2018-11-24 10:35 | Progress Note ---
Assessment and Plan - Patient Problems (1) Altered mental status Current Visit: Yes Status: Acute Qualifiers: Altered mental status type: unspecified Qualified Code(s): R41.82 - Altered mental status, unspecified Plan to address problem: Overall mental status is back to her baseline. (2) Chronic kidney disease, stage III (moderate) Current Visit: Yes Status: Acute Plan to address problem: Renal function remains stable at this time. Stable for DC from nephrology standpoint. Follow up in clinic in 2-3 weeks post discharge. (3) Diastolic CHF Current Visit: Yes Status: Chronic Qualifiers: Heart failure chronicity: chronic Qualified Code(s): I50.32 - Chronic diastolic (congestive) heart failure Plan to address problem: She is euvolemic and stable at present time. (4) Hyperkalemia Current Visit: Yes Status: Acute Plan to address problem: Resolved at present time. (5) Hypertensive chronic kidney disease with stage 1 through stage 4 chronic kidney disease, or unspecified chronic kidney disease Current Visit: Yes Status: Chronic Plan to address problem: Monitor on current regimen. Subjective Date of service: 11/24/18 Principal diagnosis: CKD Interval history: No acute issues overnight. Labs noted and overall renal function remains stable. Objective - Vital Signs Vital signs: Vital Signs - 12hr 11/24/18 11/24/18 11/24/18 02:55 08:14 10:07 Temperature 98.8 F 98.5 F Pulse Rate 64 61 61 Respiratory 20 20 Rate Blood Pressure 144/61 150/57 150/57 O2 Sat by Pulse 98 100 Oximetry - General Appearance General appearance: appears stated age, chronically ill, frail EENT: ATNC, PERRL Neck: no JVD, no thyromegaly Respiratory: Present: Clear to Ascultation, Normal Exam Cardiology: regular, S1S2 Gastrointestinal: normal, normoactive bowel sounds Integumentary: warm and dry Neurologic: no focal deficit Musculoskeletal: deferred Psychiatric: mood/affect appropriate - Lab 11/22/18 18:35 11/24/18 02:44 Most recent lab results Calcium 8.2 mg/dL (8.4-10.2) L 11/24/18 02:44 Phosphorus 3.80 mg/dL (2.5-4.5) 11/22/18 18:35 Magnesium 1.70 mg/dL (1.7-2.3) 11/22/18 18:35 Urine Creatinine 37.6 mg/dL (0.1-20.0) H 11/20/18 14:48 Urine Sodium 129 mmol/L 11/20/18 14:48 - Allied health notes Allied health notes reviewed: nursing Medications & Allergies - Medications Allergies/Adverse Reactions: Allergies methadone Adverse Reaction (Verified 08/08/17 20:43) Vomiting tramadol Adverse Reaction (Verified 08/08/17 20:43) Vomiting unknown Allergy (Uncoded 08/08/17 20:43) Unknown PT DOES NOT NAME OR TYPE OF MEDICATION THAT SHE IS ALLERGIC TO. Home Medications: Home Medications Medication Instructions Recorded Confirmed Last Taken Type Pantoprazole Sodium [Protonix] 40 mg PO QAM 01/19/15 11/19/18 06/20/16 History Carvedilol [Coreg] 6.25 mg PO BID #60 tablet 05/22/18 11/19/18 Unknown Rx Pravastatin Sodium [Pravachol] 40 mg PO HS #30 tablet 05/22/18 11/19/18 Unknown Rx Furosemide [Lasix TAB] 40 mg PO DAILY 11/19/18 11/19/18 Unknown History L. Acidophilus/Bifid. Animalis 1 each PO DAILY 11/19/18 11/19/18 Unknown History [Dialyvite Chewable Probiotic] Lisinopril/Hydrochlorothiazide 1 tab PO DAILY 11/19/18 11/19/18 Unknown History [Zestoretic 20-25 mg] amLODIPine [Norvasc] 5 mg PO DAILY 11/19/18 11/19/18 Unknown History Active Medications: Generic Name Dose Route Start Last Admin Trade Name Roseanne PRN Reason Stop Dose Admin Acetaminophen 650 mg 11/19/18 15:11 11/24/18 10:06 Tylenol PO 650 mg Q4H PRN Administration Pain MILD(1-3)/Fever >100.5/ALVARADO Albuterol 2.5 mg 11/19/18 15:11 Proventil IH Q4HRT PRN Shortness Of Breath Amlodipine Besylate 5 mg 11/20/18 10:00 11/24/18 10:07 Norvasc PO 5 mg DAILY MUNA Administration Carvedilol 12.5 mg 11/22/18 22:00 11/24/18 10:07 Coreg PO 12.5 mg BID MUNA Administration Dextrose 50 ml 11/20/18 09:30 D50w (25gm) Syringe IV PRN PRN Hypoglycemia Donepezil HCl 10 mg 11/19/18 22:00 11/23/18 21:36 Aricept PO 10 mg QHS MUNA Administration Furosemide 40 mg 11/20/18 10:00 11/24/18 10:07 Lasix PO 40 mg DAILY MUNA Administration Heparin Sodium (Porcine) 5,000 unit 11/20/18 22:00 11/24/18 10:08 Heparin SUB-Q 5,000 unit Q12HR MUNA Administration Hydralazine HCl 10 mg 11/19/18 15:50 Apresoline IV Q6HR PRN Hypertension Insulin Glargine 15 units 11/20/18 22:00 11/23/18 21:38 Lantus SUB-Q 15 units QHS MUNA Administration Insulin Human Lispro 0 unit 11/20/18 11:30 11/24/18 08:42 Humalog SUB-Q Not Given ACHS [facility] Protocol Levofloxacin 250 mg 11/22/18 10:00 11/24/18 10:07 Levaquin PO 250 mg DAILY MUNA Administration Lisinopril 20 mg 11/19/18 17:00 11/24/18 10:07 Zestril PO 20 mg QDAY MUNA Administration Ondansetron HCl 4 mg 11/19/18 15:11 11/23/18 01:32 Zofran IV 4 mg Q8H PRN Administration Nausea And Vomiting Pantoprazole Sodium 40 mg 11/20/18 10:00 11/24/18 10:07 Protonix PO 40 mg QAM MUNA Administration Pravastatin Sodium 40 mg 11/19/18 22:00 11/23/18 21:35 Pravachol PO 40 mg HS MUNA Administration Sodium Chloride 10 ml 11/19/18 22:00 11/23/18 21:36 Sodium Chloride Flush Syringe 10 Ml IV 10 ml BID MUNA Administration Sodium Chloride 10 ml 11/19/18 15:11 Sodium Chloride Flush Syringe 10 Ml IV PRN PRN LINE FLUSH
[2018-11-24] MEDS: SODIUM CHLORIDE FLUSH SYRINGE 10 ML IV SCH (11:47)
--- NOTE | 2018-11-24 12:22 | Discharge Summary ---
Providers - Providers Date of Admission: 11/19/18 15:11 Attending physician: NALLELY JIMENEZ MD 11/19/18 15:11 Consult to Physician [CONS] Routine Comment: Called to [facility] @ 11/19/18 @ 0195 Consulting Provider: ELLE PARKS Physician Instructions: Reason For Exam: arf 11/20/18 20:00 Physical Therapy Evaluation and Treat [CONS] Routine Comment: Reason For Exam: weakness [facility] Condition: Fair Hospital course: 77 YO Female with DM, HTN, Dementia, Debility, CKD on HD (Discontinued 2 weeks ago), CHF, DM2 with neuropathy, who presented to ED for evaluation. she was brought to hospital by her . Pt reports that patient has experienced worsening confusion, lethargy, worsening short term memory loss, generalized weakness over the past 1 month with progressively worsening symptoms over the past 2 weeks. Pt is requires increased assistance with activities of daily living as well as increased verbal prompting and redirection. Acute Metabolic Encephalopthy EDRD- previously on HD; Lt AV fistula CKD3 acute on chronic Diastolic CHF Hyperkalemia Sinusitis Dementia DM 2 wit neuropathy ataxia, debility hospital course she was diuresed, her insulins were optimized, BP meds were adjusted she received kayexalate for high K she received PT, FATOUMATA was offered to patient and her , but they elected to continue home health and will consider it if she does not improve, they will fup with her PCP for thi Disposition: DC/TX-06 HOME UNDER HOME HL Time spent for discharge: 33 mins Core Measure Documentation - Palliative Care Palliative Care/ Comfort Measures: Not Applicable - Core Measures Any of the following diagnoses?: heart failure - Heart Failure Discharge Requirements CANDACE/ARB for LVSD if EF <40%: Not Applicable Beta james at discharge: Yes Exam - Constitutional Vitals: Temp Pulse Resp BP Pulse Ox 98.5 F 61 20 150/57 98 11/24/18 08:14 11/24/18 10:07 11/24/18 08:14 11/24/18 10:07 11/24/18 10:47 General appearance: Present: no acute distress, well-nourished - EENT Eyes: Present: PERRL ENT: hearing intact, clear oral mucosa - Neck Neck: Present: supple, normal ROM - Respiratory Respiratory effort: normal Respiratory: bilateral: CTA - Cardiovascular Heart Sounds: Present: S1 & S2. Absent: rub, click - Extremities Extremities: pulses symmetrical, No edema Peripheral Pulses: within normal limits - Abdominal General gastrointestinal: Present: soft, non-tender, non-distended, normal bowel sounds Female genitourinary: Present: normal - Integumentary Integumentary: Present: clear, warm, dry - Musculoskeletal Musculoskeletal: gait normal, strength equal bilaterally - Psychiatric Psychiatric: appropriate mood/affect, intact judgment & insight - Neurologic Neurologic: CNII-XII intact, moves all extremities Plan Follow up with: MEKHI BAKERCOUDERSPORT MD NSÉTOR [Primary Care Provider] - 3-5 Days Prescriptions: Insulin Glargine,Hum.rec.anlog [Lantus Solostar] 10 units SQ QHS #5 pen Carvedilol [Coreg] 12.5 mg PO BID #60 tablet Lisinopril [Zestril TAB] 20 mg PO QDAY #30 tablet Other Discharge Orders: Glucometer (Amb) Location: None Selected Glucometer supplies[Amb] Location: None Selected
== END 2018-11-24 14:00 | disposition home health service (06) | DRG 682 ==
LOC: ED 09:55 → 2B-ACE 15:11
PROVIDERS: ADMIT Internal Medicine; ATTEND Internal Medicine
DX: N17.9 Acute kidney failure, unspecified (principal); G93.41 Metabolic encephalopathy; I50.32 Chronic diastolic (congestive) heart failure; I13.0 Hypertensive heart and chronic kidney disease with heart failure and stage 1 through stage 4 chronic kidney disease, or unspecified chronic kidney disease; J32.0 Chronic maxillary sinusitis; E11.40 Type 2 diabetes mellitus with diabetic neuropathy, unspecified; E11.21 Type 2 diabetes mellitus with diabetic nephropathy; E87.5 Hyperkalemia; N18.3 Chronic kidney disease, stage 3 (moderate); E11.22 Type 2 diabetes mellitus with diabetic chronic kidney disease; Z90.710 Acquired absence of both cervix and uterus; Z90.5 Acquired absence of kidney; Z88.8 Allergy status to other drugs, medicaments and biological substances; Z83.3 Family history of diabetes mellitus; Z82.49 Family history of ischemic heart disease and other diseases of the circulatory system; Z79.84 Long term (current) use of oral hypoglycemic drugs
CPT/HCPCS: 36415; 70450; 71045; 80048; 80053; 80320; 81001; 82140; 82570; 82962; 83036; 83735; 84100; 84132; 84300; 84443; 85007; 85025; 87116; 90732; 93005; 93010; 94760; 99285; G0378; A9270-GY; G0480; J1644; J1815; J1956; J2405; J3246

== ENCOUNTER 2019-06-09 09:39 | Inpatient (IN) | payer MEDICARE ==
--- NOTE | 2019-06-09 11:04 | Emergency Department Report ---
HPI - General Chief Complaint: Dyspnea/Respdistress Time Seen by Provider: 06/09/19 10:38 - HPI HPI: Room 6 The patient is a 78-year-old female presenting with a chief complaint of shortness of breath. The patient has a history of stage renal disease however states she was taken off hemodialysis for a little over 2 months. Patient states the past 3 days she's had shortness of breath/dyspnea on exertion. Patient denies orthopnea. Patient states she also began passing urine frequently for the past 2-3 days. Patient denies chest pain or fever. Patient missed occasional cough since yesterday that is nonproductive. Location: [See above] Duration: [See above] Quality: [See above] Severity: [See above] Timing: [See above] Context: [See above] Modifying factors: [See above] Associated signs and symptoms: [see above] ED Past Medical Hx - Past Medical History Previous Medical History?: Yes Hx Hypertension: Yes Hx Congestive Heart Failure: Yes Hx Diabetes: Yes Hx Renal Disease: Yes (M,W,F) - Surgical History Additional Surgical History: L kidney removed, Back surgery, Hysterectomy. fistula to LUE - Family History Family history: no significant - Social History Smoking Status: Never Smoker Substance Use Type: None - Medications Home Medications: Home Medications Medication Instructions Recorded Confirmed Last Taken Type Pantoprazole Sodium [Protonix] 40 mg PO QAM 01/19/15 11/19/18 06/20/16 History Pravastatin Sodium [Pravachol] 40 mg PO HS #30 tablet 05/22/18 11/19/18 Unknown Rx Furosemide [Lasix TAB] 40 mg PO DAILY 11/19/18 11/19/18 Unknown History L. Acidophilus/Bifid. Animalis 1 each PO DAILY 11/19/18 11/19/18 Unknown History [Dialyvite Chewable Probiotic] amLODIPine 5 mg PO DAILY 11/19/18 11/19/18 Unknown History Insulin Glargine,Hum.rec.anlog 10 units SQ QHS #5 pen 11/24/18 Unknown Rx [Lantus Solostar] Lisinopril [Zestril TAB] 20 mg PO QDAY #30 tablet 11/24/18 Unknown Rx carvediloL [Coreg] 12.5 mg PO BID #60 tablet 11/24/18 Unknown Rx ED Review of Systems ROS: Stated complaint: SOB Other details as noted in HPI Constitutional: denies: fever Eyes: denies: eye pain ENT: denies: throat pain Respiratory: cough, shortness of breath Cardiovascular: denies: chest pain Endocrine: no symptoms reported Gastrointestinal: denies: abdominal pain Genitourinary: denies: dysuria Musculoskeletal: denies: back pain Neurological: denies: headache Physical Exam - Physical Exam Vital Signs: Vital Signs 06/09/19 06/09/19 06/09/19 09:49 10:18 10:44 Temperature 97.2 F L Pulse Rate 71 75 Respiratory 17 19 Rate Blood Pressure 131/50 Blood Pressure 149/77 [Right] O2 Sat by Pulse 83 L 93 93 Oximetry Physical Exam: GENERAL: The patient is well-developed well-nourished female lying on stretcher not appearing to be in acute distress. [] HEENT: Normocephalic. Atraumatic. Extraocular motions are intact. Patient has moist mucous membranes. NECK: Supple. Trachea midline CHEST/LUNGS: Bibasilar crackles. There is no respiratory distress noted. HEART/CARDIOVASCULAR: Regular. There is no tachycardia. There is no gallop rub or murmur. ABDOMEN: Abdomen is soft, nontender. Patient has normal bowel sounds. There is no abdominal distention. SKIN: There is no rash. There is no diaphoresis. NEURO: The patient is awake, alert, and oriented. The patient is cooperative. The patient has normal speech MUSCULOSKELETAL: There is no evidence of acute injury. ED Course Vital Signs 06/09/19 06/09/19 06/09/19 09:49 10:18 10:44 Temperature 97.2 F L Pulse Rate 71 75 Respiratory 17 19 Rate Blood Pressure 131/50 Blood Pressure 149/77 [Right] O2 Sat by Pulse 83 L 93 93 Oximetry - Consultations Consultation #1: 06/09/19 12:09 Nephrology paged 06/09/19 12:[address] Alie estrada to administer Lasix 20-40 mg IV ED Medical Decision Making - Lab Data Result diagrams: 06/09/19 11:05 06/09/19 11:05 Laboratory Tests 06/09/19 06/09/19 06/09/19 11:05 11:05 11:05 WBC 5.8 RBC 4.15 Hgb 12.7 Hct 39.0 MCV 94 MCH 31 MCHC 33 RDW 15.8 H Plt Count 236 Add Manual Diff Complete Total Counted 100 Seg Neuts % (Manual) 90.0 H Band Neutrophils % 0 Lymphocytes % (Manual) 5.0 L Reactive Lymphs % (Man) 0 Monocytes % (Manual) 3.0 Eosinophils % (Manual) 1.0 Basophils % (Manual) 0 Metamyelocytes % 1.0 Myelocytes % 0 Promyelocytes % 0 Blast Cells % 0 Nucleated RBC % Not Reportable Seg Neutrophils # Man 5.2 Band Neutrophils # 0.0 Lymphocytes # (Manual) 0.3 L Abs React Lymphs (Man) 0.0 Monocytes # (Manual) 0.2 Eosinophils # (Manual) 0.1 Basophils # (Manual) 0.0 Metamyelocytes # 0.1 Myelocytes # 0.0 Promyelocytes # 0.0 Blast Cells # 0.0 WBC Morphology Not Reportable Hypersegmented Neuts Not Reportable Hyposegmented Neuts Not Reportable Hypogranular Neuts Not Reportable Smudge Cells Not Reportable Toxic Granulation Not Reportable Toxic Vacuolation Not Reportable Dohle Bodies Not Reportable Pelger-Huet Anomaly Not Reportable Anastasiya Rods Not Reportable Platelet Estimate Consistent w auto Clumped Platelets Not Reportable Plt Clumps, EDTA Not Reportable Large Platelets Not Reportable Giant Platelets Not Reportable Platelet Satelliting Not Reportable Plt Morphology Comment Not Reportable RBC Morphology Normal Dimorphic RBCs Not Reportable Polychromasia Not Reportable Hypochromasia Not Reportable Poikilocytosis Not Reportable Anisocytosis Not Reportable Microcytosis Not Reportable Macrocytosis Not Reportable Spherocytes Not Reportable Pappenheimer Bodies Not Reportable Sickle Cells Not Reportable Target Cells Not Reportable Tear Drop Cells Not Reportable Ovalocytes Not Reportable Helmet Cells Not Reportable Cornelius-Bondville Bodies Not Reportable Lawson Rings Not Reportable Kensett Cells Not Reportable Bite Cells Not Reportable Crenated Cell Not Reportable Elliptocytes Not Reportable Acanthocytes (Spur) Not Reportable Rouleaux Not Reportable Hemoglobin C Crystals Not Reportable Schistocytes Not Reportable Malaria parasites Not Reportable Remberto Bodies Not Reportable Hem Pathologist Commnt No PT 14.7 INR 1.16 H Sodium 140 Potassium 4.8 Chloride 104.1 Carbon Dioxide 20 L Anion Gap 21 BUN 25 H Creatinine 1.9 H Estimated GFR 31 BUN/Creatinine Ratio 13 Glucose 248 H Calcium 8.8 Total Bilirubin 0.60 AST 45 H ALT 33 Alkaline Phosphatase 177 H Total Creatine Kinase 128 CK-MB (CK-2) 2.5 CK-MB (CK-2) Rel Index 1.9 Troponin T < 0.010 NT-Pro-B Natriuret Pep 2131 H Total Protein 8.0 Albumin 3.8 L Albumin/Globulin Ratio 0.9 - EKG Data -: EKG Interpreted by Me EKG shows normal: sinus rhythm Rate: normal - EKG Data When compared to previous EKG there are: previous EKG unavailable Interpretation: other (no ischemic changes. Shortened PA) - Radiology Data Radiology results: report reviewed (chest x-ray), image reviewed (chest x-ray) interpreted by me: Chest x-ray-right heart border obscured, infiltrate versus vascular congestion. Left costophrenic angle obscured [facility] [address] [place] [address] XRay Report Signed Patient: SURYA JOINER MR#: [id number] 9 : 1940 Acct:[id number] Age/Sex: 78 / F ADM Date: 06/09/19 Loc: ED Attending Dr: Ordering Physician: DEISY SOL MD Date of Service: 06/09/19 Procedure(s): XR chest 1V ap Accession Number(s): [id number] cc: DEISY SOL MD Fluoro Time In Minutes: CHEST 1 VIEW INDICATION: shortness of breath, dyspnea on exertion. COMPARISON: 11/19/2018 and 05/20/2018 FINDINGS: Support devices: None. Heart: Stable cardiomegaly. Pulmonary vasculature: Central vascular congestion but improvement compared to previous exams. Lungs/Pleura: Right basal airspace disease with air bronchograms is new compared to previous exams. Partial silhouetting of the right heart border and the right hemidiaphragm. Mild blunting of the costophrenic angles is unchanged compared to previous exams. Additional findings: None. IMPRESSION: 1. Acute right middle lobe and right lower lobe pneumonia. 2. Mild CHF which is improved compared to previous exams. Signer Name: Corky Sharif MD Signed: 06/09/2019 11:14 AM Workstation Name: [id number] Transcribed By: REF Dictated By: CORKY SHARIF MD Electronically Authenticated By: CORKY SHARIF MD Signed Date/Time: 06/09/19 1114 DD/ 1109 TD/TT: - Differential Diagnosis renal failure, CHF, pneumonia Critical care attestation.: If time is entered above; I have spent that time in minutes in the direct care of this critically ill patient, excluding procedure time. ED Disposition Clinical Impression: Shortness of breath, Pneumonia, CHF (congestive heart failure), Hypoxia Disposition: OP ADMIT IP TO THIS HOSP Is pt being admited?: Yes Does the pt Need Aspirin: No Condition: Fair Instructions: Bacterial Pneumonia (ED) Referrals: PRIMARY CARE, [Primary Care Provider] - 3-5 Days Time of Disposition: 12:26 (hospitalist paged (Dr Real))
--- NOTE | 2019-06-09 11:18 | XRay Report ---
CHEST 1 VIEW INDICATION: shortness of breath, dyspnea on exertion. COMPARISON: 11/19/2018 and 05/20/2018 FINDINGS: Support devices: None. Heart: Stable cardiomegaly. Pulmonary vasculature: Central vascular congestion but improvement compared to previous exams. Lungs/Pleura: Right basal airspace disease with air bronchograms is new compared to previous exams. P artial silhouetting of the right heart border and the right hemidiaphragm. Mild blunting of the costo phrenic angles is unchanged compared to previous exams. Additional findings: None. IMPRESSION: 1. Acute right middle lobe and right lower lobe pneumonia. 2. Mild CHF which is improved compared to previous exams. Signer Name: Dez Mckeon MD Signed: 06/09/2019 11:14 AM Workstation Name: [id number]
[2019-06-09 11:20] LABS: Hemoglobin 12.7 gm/dl (10.1-14.3); Mean Corpuscular HGB Conc 33 % (30-34); Mean Corpuscular Volume 94 fl (79-97); Platelet Count 236 K/mm3 (140-440); Red Blood Count 4.15 M/mm3 (3.65-5.03); Red Cell Distribution Width 15.8 % (13.2-15.2)
[2019-06-09 11:30] LABS: INR 1.16 (0.87-1.13)
[2019-06-09 11:49] LABS: Creatine Kinase MB 2.5 ng/mL (0.0-4.0)
[2019-06-09 11:50] LABS: Alanine Aminotransferase 33 units/L (7-56); Albumin 3.8 g/dL (3.9-5); BUN/Creatinine Ratio 13; Blood Urea Nitrogen 25 mg/dL (7-17); Calcium 8.8 mg/dL (8.4-10.2); Hemolysis Index 28
[2019-06-09 12:09] LABS: Basophils % (Manual) 0 % (0.0-1.8); Platelet Estimate Consistent w Auto; RBC Morphology Normal; Total Cells Counted 100
[2019-06-09] MEDS ORDERED: FUROSEMIDE 40 MG/4 ML INJ IV ONE (12:24)
[2019-06-09] MEDS ORDERED: cefTRIAXone/NS 1 GM/50 ML 1 GM/50 ML BAG IV ONE ×2 (12:25→13:40)
--- NOTE | 2019-06-09 12:58 | History and Physical Report ---
History of Present Illness Date of examination: 06/09/19 Date of admission: 06/09/19 Chief complaint: SOB History of present illness: The patient is a 78-year-old female with h/o DM, CKD with h/o HD but now off, HTN, CHF presenting with a chief complaint of shortness of breath. The patient has a history of end stage renal disease however states she was taken off h emodialysis for a little over 2 months. Patient states the past 3 days she's developed progressive shortness of breath/dyspnea on exertion. Patient denies orthopnea. Patient states she also began passing urine frequently for the past 2-3 days. Patient denies chest pain or fever. Patient had occasional cough since yesterday that is nonproductive. In the ER her O2 sat was 83% on RA, CXR showed rightsided PNA and mild CHF, Cr 1.9. She was given nebs, empiric abx, iv lasix placed on O2 n/c and called for admission for further evaluation and Mx. Review of System: Constitutional: no fever, no chills, no weight loss Ears, eyes, nose, mouth and throat: no nasal congestion, no nasal discharge, no sinus pressure, no vision change, no red eye. Neck: No neck pain or rigidity. Cardiovascular: No chest pain, no orthopnea, no palpitations, no leg swelling Respiratory: + shortness of breath, + cough, + congestion, + wheezing Gastrointestinal: no abdominal pain, no nausea, no vomiting Genitourinary : no dysuria, no hematuria Musculoskeletal: no joint swelling or muscle ache Integumentary: no rash, no pruritis Neurological: no parathesias, no numbness, no tingling Endocrine: no cold or heat intolerance, + polyuria but polydipsia Hematologic/Lymphatic: no easy bruising, no easy bleeding, no gland swelling Allergic/Immunologic: no urticaria, no angioedema. Past History Past Medical History: diabetes, ESRD (but now off HD), heart failure, hypertension, hyperlipidemia Past Surgical History: hysterectomy Social history: lives with family. denies: smoking, alcohol abuse, IV drug use Family history: diabetes, hypertension Medications and Allergies Allergies Allergy/AdvReac Type Severity Reaction Status Date / Time methadone AdvReac Vomiting Verified 08/08/17 20:43 tramadol AdvReac Vomiting Verified 08/08/17 20:43 unknown Allergy Unknown Uncoded 08/08/17 20:43 Home Medications Medication Instructions Recorded Confirmed Last Taken Type Pantoprazole Sodium [Protonix] 40 mg PO QAM 01/19/15 11/19/18 06/20/16 History Pravastatin Sodium [Pravachol] 40 mg PO HS #30 tablet 05/22/18 11/19/18 Unknown Rx Furosemide [Lasix TAB] 40 mg PO DAILY 11/19/18 11/19/18 Unknown History L. Acidophilus/Bifid. Animalis 1 each PO DAILY 11/19/18 11/19/18 Unknown History [Dialyvite Chewable Probiotic] amLODIPine 5 mg PO DAILY 11/19/18 11/19/18 Unknown History Insulin Glargine,Hum.rec.anlog 10 units SQ QHS #5 pen 11/24/18 Unknown Rx [Lantus Solostar] Lisinopril [Zestril TAB] 20 mg PO QDAY #30 tablet 11/24/18 Unknown Rx carvediloL [Coreg] 12.5 mg PO BID #60 tablet 11/24/18 Unknown Rx Active Meds: Active Medications Ceftriaxone Sodium (Rocephin/Ns 1 Gm/50 Ml) 1 gm in 50 mls @ 100 mls/hr IV ONCE ONE; Protocol Stop: 06/09/19 12:54 Exam - Physical Exam Narrative exam: GENERAL: well-developed and well-nourished AAF lying on bed appeared to be in no discomfort. HEENT: Normocephalic. Atraumatic. No conjunctival congestion or icterus. Patient has moist mucous membranes. NECK: Supple. Trachea midline. CHEST/LUNGS: BS auscultated bilaterally, breathing nonlabored. No wheezes crackles, + rhonchi. HEART/CARDIOVASCULAR: Regular in rate and rhythm. S1 and S2 positive. ABDOMEN: Abdomen is soft, nontender. Patient has normal bowel sounds. SKIN: There is no rash. Warm and dry. NEURO: No focal motor deficit. Follows command. MUSCULOSKELETAL: No joint effusion or tenderness. EXTRIMITY: + trace edema, no cyanosis or clubbing. PSYCH: Cooperative. - Constitutional Vitals: Temp Pulse Resp BP Pulse Ox 97.2 F L 75 19 149/77 93 06/09/19 09:49 06/09/19 10:18 06/09/19 10:18 06/09/19 10:18 06/09/19 10:44 Results - Labs CBC & Chem 7: 06/09/19 11:05 06/10/19 06:20 Labs: Abnormal lab results 06/09/19 06/09/19 06/09/19 Range/Units 11:05 11:05 11:05 RDW 15.8 H (13.2-15.2) % Seg Neuts % (Manual) 90.0 H (40.0-70.0) % Lymphocytes % (Manual) 5.0 L (13.4-35.0) % Lymphocytes # (Manual) 0.3 L (1.2-5.4) K/mm3 INR 1.16 H (0.87-1.13) Carbon Dioxide 20 L (22-30) mmol/L BUN 25 H (7-17) mg/dL Creatinine 1.9 H (0.7-1.2) mg/dL Glucose 248 H (65-100) mg/dL AST 45 H (5-40) units/L Alkaline Phosphatase 177 H (35-129) units/L NT-Pro-B Natriuret Pep 2131 H (0-900) pg/mL Albumin 3.8 L (3.9-5) g/dL Assessment and Plan Acute hypoxic respiratory failure - due to underlying PNA and CHF - start on empiric abx, nebs, supplemental O2 - pulmonary consult if no improvement in next 24h Right multilober PNA, sputum cx, blood cx, empiric abx PORSHA on CKD stage 4, monitor renal function - could be from medication vs vasomotor nephropathy vs volume overload - consult nephrology CHF with mild exacerbation - h/o diastolic dysfunction per chart review, no record of 2d echo - daily wt, fluid restriction, monitor ins/os, low dose lasix - obtain 2d echo, cardiology consult HTN, resume home meds DM type 2, consistent carb diet, SSI h/o dementia, supportive care Dvt Px, heparin Radiological data: Chest x-ray: 1. Acute right middle lobe and right lower lobe pneumonia. 2. Mild CHF which is improved compared to previous exams.
[2019-06-09] MEDS ORDERED: FUROSEMIDE 40 MG/4 ML INJ ONE (13:40)
[2019-06-09] MEDS ORDERED: IPRATROPIUM/ALBUTEROL SULFATE 3 ML AMPUL.NEB IH ONE (13:54)
[2019-06-09] MEDS ORDERED: IPRATROPIUM/ALBUTEROL SULFATE 3 ML AMPUL.NEB IH SCH (14:00)
[2019-06-09 17:51] LABS: Hepatitis B Surface Antigen Non-Reactive (Negative); Hepatitis C Virus Antibody Non-Reactive (NonReactive)
[2019-06-09] MEDS ORDERED: ACETAMINOPHEN 325 MG TAB PO PRN (18:31)
[2019-06-09] MEDS ORDERED: ONDANSETRON 4 MG/2 ML INJ IV PRN (18:31)
[2019-06-09] MEDS: IPRATROPIUM/ALBUTEROL SULFATE 3 ML AMPUL.NEB IH SCH ×2 (20:00→21:57)
[2019-06-09] MEDS: HEPARIN 5,000 UNIT/1 ML VIAL SUB-Q SCH (21:35)
[2019-06-09] MEDS: DOCUSATE SODIUM 100 MG CAP PO SCH (21:35)
[2019-06-09] MEDS: carvediloL 12.5 MG TAB PO SCH (21:35)
[2019-06-09] MEDS: PRAVASTATIN 40 MG TAB PO SCH (21:35)
[2019-06-09] MEDS: INSULIN GLARGINE 100 UNITS/ML SUB-Q SCH (21:36)
[2019-06-09] MEDS: INSULIN REGULAR, HUMAN 100 UNITS/1 ML SUB-Q SCH (21:37)
[2019-06-09] MEDS ORDERED: INSULIN GLARGINE HUM REC ANLOG 10 UNIT SQ SCH (22:00)
[2019-06-09] MEDS ORDERED: cefTRIAXone/NS 1 GM/50 ML 1 GM/50 ML BAG IV SCH (22:00)
--- NOTE | 2019-06-09 22:54 | Consultation ---
History of Present Illness - Reason for Consult Consult date: 06/09/19 chronic renal failure Requesting physician: DEISY SOL - History of Present Illness 78-year-old lady who is well-known to me with a history of chronic kidney disease and was on hemodialysis but had improvement in kidney function and has stabilized at stage IV chronic kidney disease. On Her last office follow-up about 6 weeks ago, BUN/creatinine were 33/2.39 mg/dL. Blood pressure was elevated and she had lower extremity o edema and so was started on furosemide 40 mg every other day. She and was doing well until about 3 days ago when she developed progressively worsening shortness of breath with increased urinary frequency for the last 3 days. She also had orthopnea. She's been coughing but it is nonproductive and has had some wheezing. Her was treated for bronchitis/pneumonia less than a month ago. She denies any fever or chills. She has some chest pain and palpitations. Patient wants home oxygen because she believes that she would do better at home if she was on oxygen at home. She has been adhering to low sodium diet and her only makes fresh chicken and fish and vegetables at home with no added salt. She has also been taking her medications as prescribed. Past History Past Medical History: diabetes, hypertension, hyperlipidemia, renal failure Past Surgical History: No surgical history Social history: , lives with family. denies: smoking, alcohol abuse, prescription drug abuse, IV drug use Family history: no significant family history Medications and Allergies Allergies Allergy/AdvReac Type Severity Reaction Status Date / Time methadone AdvReac Vomiting Verified 08/08/17 20:43 tramadol AdvReac Vomiting Verified 08/08/17 20:43 unknown Allergy Unknown Uncoded 08/08/17 20:43 Home Medications Medication Instructions Recorded Confirmed Last Taken Type Pantoprazole Sodium [Protonix] 40 mg PO QAM 01/19/15 11/19/18 06/20/16 History Pravastatin Sodium [Pravachol] 40 mg PO HS #30 tablet 05/22/18 11/19/18 Unknown Rx Furosemide [Lasix TAB] 40 mg PO DAILY 11/19/18 11/19/18 Unknown History L. Acidophilus/Bifid. Animalis 1 each PO DAILY 11/19/18 11/19/18 Unknown History [Dialyvite Chewable Probiotic] amLODIPine 5 mg PO DAILY 11/19/18 11/19/18 Unknown History Insulin Glargine,Hum.rec.anlog 10 units SQ QHS #5 pen 11/24/18 Unknown Rx [Lantus Solostar] Lisinopril [Zestril TAB] 20 mg PO QDAY #30 tablet 11/24/18 Unknown Rx carvediloL [Coreg] 12.5 mg PO BID #60 tablet 11/24/18 Unknown Rx Active Meds: Active Medications Acetaminophen (Tylenol) 650 mg PO Q4H PRN PRN Reason: Pain MILD(1-3)/Fever >100.5/ALVARADO Albuterol/Ipratropium (Duoneb *Not For Prn Use*) 1 ampul IH Q6HRT [facility] Amlodipine Besylate (Amlodipine) 5 mg PO DAILY [facility] Carvedilol (Coreg) 12.5 mg PO BID [facility] Last Admin: 06/09/19 21:35 Dose: 12.5 mg Documented by: Docusate Sodium (Colace) 100 mg PO BID [facility] Last Admin: 06/09/19 21:35 Dose: 100 mg Documented by: Furosemide (Lasix) 40 mg PO DAILY [facility] Heparin Sodium (Porcine) (Heparin) 5,000 unit SUB-Q Q12HR [facility] Last Admin: 06/09/19 21:35 Dose: 5,000 unit Documented by: Ceftriaxone Sodium (Rocephin/Ns 1 Gm/50 Ml) 1 gm in 50 mls @ 100 mls/hr IV Q12HR [facility]; Protocol Last Admin: 06/09/19 21:34 Dose: 100 mls/hr Documented by: Insulin Glargine (Lantus) 10 units SUB-Q QHS [facility] Last Admin: 06/09/19 21:36 Dose: 10 units Documented by: Insulin Human Regular (Humulin R) 0 units SUB-Q ACHS [facility]; Protocol Last Admin: 06/09/19 21:37 Dose: 2 units Documented by: Ondansetron HCl (Zofran) 4 mg IV Q8H PRN PRN Reason: N/V unrelieved by Reglan Pantoprazole Sodium (Protonix) 40 mg PO QAM [facility] Pravastatin Sodium (Pravachol) 40 mg PO HS [facility] Last Admin: 06/09/19 21:35 Dose: 40 mg Documented by: Review of Systems All systems: negative (Constitutional: no fever or chills. No anorexia or weight loss. HEENT: No sore throat or sinus drainage no hearing or vision impairment . Cardiovascular: See history of present illness. No Dizziness. Respiratory: See history of present illness. Gastrointestinal: No nausea, vomiting, he had diarrhea twice this week, not bloody or mucoid, has burning abdominal pain after urinating, hematemesis or melena. Genitourinary: No frequency urgency dysuria or hematuria. hematologic: No abnormal bleeding or bruising. Integumentary: no pruritus or rash. Neurological: No headache no focal weakness or numbness, no syncope or seizures. Musculoskeletal: No joint pains no stiffness. Psychiatry: no anxiety but admits to depression) Exam - Vital Signs Vital signs: Vital Signs Temp Pulse Resp BP Pulse Ox 97.2 F L 71 17 131/50 83 L 06/09/19 09:49 06/09/19 09:49 06/09/19 09:49 06/09/19 09:49 06/09/19 09:49 - Physical Exam Narrative exam: Elderly -Dominican female lying in bed in mild respiratory distress HEENT: NCAT, pink oral mucous membrane Neck: Supple, no venous distention CVS: S1S2 RRR with no murmur, rub or gallop Chest: His breath sounds with rales worse on the right lower zone Abdomen: Distended, soft, nontender, no organomegaly, bowel sounds are present Extremities: Mild bilateral lower extremity edema, Genitourinary deferred, Skin warm and dry with no rash Neuro: Awake, alert no focal deficits Results - Lab Results 06/09/19 11:05 06/09/19 11:05 Most recent lab results Calcium 8.8 mg/dL (8.4-10.2) 06/09/19 11:05 Assessment and Plan - Patient Problems (1) Type 2 diabetes mellitus with diabetic chronic kidney disease Current Visit: Yes Status: Acute Plan to address problem: Blood sugar management by primary attending (2) Hypertensive chronic kidney disease with stage 1 through stage 4 chronic kidney disease, or unspecified chronic kidney disease Current Visit: Yes Status: Acute Plan to address problem: Follow-up blood pressure on current medications (3) Acute hypoxemic respiratory failure Current Visit: No Status: Acute Plan to address problem: Acute respiratory failure Secondary to acute pulmonary edema and/or pneumonia. Patient getting IV diuretics and antibiotics. Continue bronchodilator nebulizer treatments and supplemental oxygen. (4) Chronic kidney disease, stage 4 (severe) Current Visit: No Status: Acute Plan to address problem: Chronic kidney disease secondary to solitary kidney and diabetic nephropathy/hypertensive nephrosclerosis. Kidney function appears better than baseline probably secondary to hemodilution with fluid overload.
[2019-06-10] MEDS ORDERED: ALBUTEROL 2.5 MG/3 ML NEBU IH PRN (01:42)
[2019-06-10 07:00] LABS: Calcium 8.7 mg/dL (8.4-10.2)
[2019-06-10] MEDS: INSULIN REGULAR, HUMAN 100 UNITS/1 ML SUB-Q SCH ×4 (07:30→21:43)
[2019-06-10] MEDS: IPRATROPIUM/ALBUTEROL SULFATE 3 ML AMPUL.NEB IH SCH ×3 (07:58→20:54)
[2019-06-10] MEDS ORDERED: FUROSEMIDE 40 MG TAB PO SCH (10:00)
[2019-06-10] MEDS ORDERED: [UNRECOGNIZED DRUG - OTHER] PO SCH (10:00)
[2019-06-10] MEDS: AZITHROMYCIN 500 MG in SODIUM CHLORIDE 0.9% 250ML 250 ML IV SCH (10:49)
[2019-06-10] MEDS: DOCUSATE SODIUM 100 MG CAP PO SCH ×2 (10:50→21:31)
[2019-06-10] MEDS: carvediloL 12.5 MG TAB PO SCH ×2 (10:51→21:31)
[2019-06-10] MEDS: amLODIPine 5 MG TAB PO SCH (10:52)
[2019-06-10] MEDS: HEPARIN 5,000 UNIT/1 ML VIAL SUB-Q SCH ×2 (10:52→21:31)
[2019-06-10] MEDS: PANTOPRAZOLE 40 MG TAB PO SCH (10:52)
--- NOTE | 2019-06-10 11:34 | Consultation ---
History of Present Illness Consult date: 06/10/19 Requesting physician: PEDRO LUIS REYES Consult reason: congestive heart failure, shortness of breath History of present illness: The patient is a rather poor historian and cannot remember most of the symptoms that brought her to the hospital. She only contributed partially to the history. The rest of the history was obtained from a review of the medical chart. She has a history of CKD and was previously on hemodialysis which was discontinued about 2 months ago. She apparently presented to the emergency department with progressive dyspnea. For the past 2-3 days, she has been experiencing frequency of urination. There is no dysuria. She denies chest pain. Her CXR showed pulmonary vascular congestion. Notably, she had a negative stress MPI in 2014. Echocardiogram in July 2017 revealed an ejection fra ction of 55-60% with RVSP of 64 mmHg. Past History Past Medical History: diabetes, heart failure, hypertension, hyperlipidemia, renal failure Past Surgical History: hysterectomy Social history: denies: smoking, alcohol abuse Family history: diabetes, hypertension Medications and Allergies Allergies Allergy/AdvReac Type Severity Reaction Status Date / Time methadone AdvReac Vomiting Verified 08/08/17 20:43 tramadol AdvReac Vomiting Verified 08/08/17 20:43 unknown Allergy Unknown Uncoded 08/08/17 20:43 Home Medications Medication Instructions Recorded Confirmed Last Taken Type Pantoprazole Sodium [Protonix] 40 mg PO QAM 01/19/15 11/19/18 06/20/16 History Pravastatin Sodium [Pravachol] 40 mg PO HS #30 tablet 05/22/18 11/19/18 Unknown Rx Furosemide [Lasix TAB] 40 mg PO DAILY 11/19/18 11/19/18 Unknown History L. Acidophilus/Bifid. Animalis 1 each PO DAILY 11/19/18 11/19/18 Unknown History [Dialyvite Chewable Probiotic] amLODIPine 5 mg PO DAILY 11/19/18 11/19/18 Unknown History Insulin Glargine,Hum.rec.anlog 10 units SQ QHS #5 pen 11/24/18 Unknown Rx [Lantus Solostar] Lisinopril [Zestril TAB] 20 mg PO QDAY #30 tablet 11/24/18 Unknown Rx carvediloL [Coreg] 12.5 mg PO BID #60 tablet 11/24/18 Unknown Rx Active Meds: Active Medications Acetaminophen (Tylenol) 650 mg PO Q4H PRN PRN Reason: Pain MILD(1-3)/Fever >100.5/ALVARADO Albuterol (Proventil) 2.5 mg IH Q4HRT PRN PRN Reason: Shortness Of Breath Albuterol/Ipratropium (Duoneb *Not For Prn Use*) 1 ampul IH TIDRT [facility] Last Admin: 06/10/19 07:58 Dose: 1 ampul Documented by: Amlodipine Besylate (Amlodipine) 5 mg PO DAILY [facility] Last Admin: 06/10/19 10:52 Dose: 5 mg Documented by: Carvedilol (Coreg) 12.5 mg PO BID [facility] Last Admin: 06/10/19 10:51 Dose: 12.5 mg Documented by: Docusate Sodium (Colace) 100 mg PO BID [facility] Last Admin: 06/10/19 10:50 Dose: 100 mg Documented by: Heparin Sodium (Porcine) (Heparin) 5,000 unit SUB-Q Q12HR [facility] Last Admin: 06/10/19 10:52 Dose: 5,000 unit Documented by: Azithromycin 500 mg/ Sodium (Chloride) 250 mls @ 250 mls/hr IV Q24HR [facility]; Protocol Last Admin: 06/10/19 10:49 Dose: 250 mls/hr Documented by: Ceftriaxone Sodium (Rocephin/Ns 1 Gm/50 Ml) 1 gm in 50 mls @ 100 mls/hr IV Q24HR [facility]; Protocol Insulin Glargine (Lantus) 10 units SUB-Q QHS [facility] Last Admin: 06/09/19 21:36 Dose: 10 units Documented by: Insulin Human Regular (Humulin R) 0 units SUB-Q ACHS [facility]; Protocol Last Admin: 06/10/19 07:30 Dose: Not Given Documented by: Ondansetron HCl (Zofran) 4 mg IV Q8H PRN PRN Reason: N/V unrelieved by Reglan Pantoprazole Sodium (Protonix) 40 mg PO QAM [facility] Last Admin: 06/10/19 10:52 Dose: 40 mg Documented by: Pravastatin Sodium (Pravachol) 40 mg PO HS [facility] Last Admin: 06/09/19 21:35 Dose: 40 mg Documented by: Review of Systems Constitutional: no fever, no chills Ears, nose, mouth and throat: no ear pain, no sore throat Cardiovascular: orthopnea, shortness of breath, no chest pain, no palpitations, no lightheadedness Respiratory: shortness of breath, no cough, no hemoptysis Gastrointestinal: no abdominal pain, no nausea, no vomiting, no diarrhea, no constipation Genitourinary Female: urinary frequency, no dysuria Rectal: no pain, no bleeding Musculoskeletal: no neck stiffness, no neck pain, no myalgias Integumentary: no rash, no pruritis Neurological: no weakness, no parathesias, no headaches Endocrine: no cold intolerance, no heat intolerance Hematologic/Lymphatic: no easy bruising, no easy bleeding Allergic/Immunologic: no urticaria, no wheezing Physical Examination Vital Signs Last Vital Signs Temp 98.6 F 06/10/19 08:29 Pulse 75 06/10/19 10:52 Resp 18 06/10/19 08:29 BP 165/67 06/10/19 10:52 Pulse Ox 89 06/10/19 08:29 General appearance: no acute distress HEENT: Positive: Normocephaly, Mucus Membranes Moist Neck: Positive: neck supple, trachea midline Cardiac: Positive: Reg Rate and Rhythm, S1/S2 Lungs: Positive: clear to auscultation Neuro: Positive: Grossly Intact Abdomen: Positive: Soft, Active Bowel Sounds. Negative: Tender Skin: Positive: Clear. Negative: Rash Musculoskeletal: Normal Range of Motion Extremities: Present: normal. Absent: edema Results 06/09/19 11:05 06/10/19 06:20 Cardiac Enzymes 06/09/19 Range/Units 11:05 AST 45 H (5-40) units/L CK-MB (CK-2) 2.5 (0.0-4.0) ng/mL Coagulation 06/09/19 Range/Units 11:05 PT 14.7 (12.2-14.9) Sec. INR 1.16 H (0.87-1.13) CBC 06/09/19 Range/Units 11:05 WBC 5.8 (4.5-11.0) K/mm3 RBC 4.15 (3.65-5.03) M/mm3 Hgb 12.7 (10.1-14.3) gm/dl Hct 39.0 (30.3-42.9) % Plt Count 236 (140-440) K/mm3 Comprehensive Metabolic Panel 06/09/19 06/10/19 Range/Units 11:05 06:20 Sodium 140 147 H (137-145) mmol/L Potassium 4.8 5.2 H (3.6-5.0) mmol/L Chloride 104.1 109.0 H (98-107) mmol/L Carbon Dioxide 20 L 23 (22-30) mmol/L BUN 25 H 31 H (7-17) mg/dL Creatinine 1.9 H 2.0 H (0.7-1.2) mg/dL Glucose 248 H 127 H (65-100) mg/dL Calcium 8.8 8.7 (8.4-10.2) mg/dL AST 45 H (5-40) units/L ALT 33 (7-56) units/L Alkaline Phosphatase 177 H (35-129) units/L Total Protein 8.0 (6.3-8.2) g/dL Albumin 3.8 L (3.9-5) g/dL - Imaging and Cardiology EKG: image reviewed EKG interpretations - Telemetry EKG Rhythm: Sinus Rhythm - EKG Sinus rhythms and dysrhythmias: sinus rhythm Assessment and Plan Initiate intravenous diuretics. Obtain echocardiogram. - Patient Problems (1) Acute heart failure with preserved ejection fraction (HFpEF) Current Visit: Yes Status: Acute (2) HTN (hypertension) Current Visit: Yes Status: Chronic Qualifiers: Hypertension type: essential hypertension Qualified Code(s): I10 - Essential (primary) hypertension (3) Pulmonary hypertension Current Visit: Yes Status: Chronic (4) CKD (chronic kidney disease) Current Visit: Yes Status: Chronic Qualifiers: Chronic kidney disease stage: stage 4 (severe) Qualified Code(s): N18.4 - Chronic kidney disease, stage 4 (severe) (5) Diabetes mellitus Current Visit: Yes Status: Chronic
[2019-06-10 11:45] LABS: Bilirubin,Urine NEG (Negative); Blood,Urine NEG (Negative); Color,Urine Yellow (Yellow); Mucus,Urine FEW /HPF; Urobilinogen,Urine < 2.0 mg/dL (<2.0)
[2019-06-10] MEDS ORDERED: FLU VACC QUAD 2019-20 (3 YR UP)/PF 60 MCG/0.5 ML SYRINGE IM ONE (12:00)
[2019-06-10] MEDS ORDERED: FUROSEMIDE 40 MG/4 ML INJ IV SCH (18:00)
[2019-06-10] MEDS: cefTRIAXone/NS 1 GM/50 ML 1 GM/50 ML BAG IV SCH (18:23)
--- NOTE | 2019-06-10 19:33 | Progress Note ---
Assessment and Plan Assessment and plan: Patient is a 78-year-old woman with history of Dementia, type 2 DM, HTN, CHF and prior ESRD on HD who presents to [facility] ED with SOB and cough. Patient was on HD up until 3 days ago but was doing well and Broker Assistant took her off Hemodialysis. In the ER her O2 sat was 83% on RA, CXR showed rightsided PNA and mild CHF, Cr 1.9. She was given nebs, empiric abx, iv lasix placed on O2 n/c and called for admission for further evaluation and Mx. * pChest x-ray: 1. Acute right middle lobe and right lower lobe pneumonia. 2. Mild CHF which is improved compared to previous exams. Acute hypoxic respiratory failure - due to underlying PNA and CHF - start on empiric abx, nebs, supplemental O2 - pulmonary consult if no improvement in next 24h Right multilober PNA, sputum cx, blood cx, treat with IV abx PORSHA on CKD stage 5, monitor renal function - suspected vasomotor nephropathy vs volume overload - consult nephrology Acute on chronic diastolic heart failure exacerbation - h/o diastolic dysfunction per chart review, no record of 2d echo - daily wt, fluid restriction, monitor ins/os, low dose lasix - obtain 2d echo, cardiology consult - treat with diuretics. HTN, resume home meds DM type 2, consistent carb diet, SSI H/O dementia, supportive care Dvt Px, heparin History Interval history: Patient was seen and examined. Follow-up on current diagnosis CHF and pna. No overnight events reported to me. Patient denies any chest pain, nausea/vomiting or severe headaches. Imaging, nursing note, chart, labs and old chart reviewed. Discussed with patient. Hospitalist Physical - Physical exam Narrative exam: Gen: WDWN, NAD, Awake, Alert, Orientated x 2 HEENT: NCAT, EOMI, PERRL, OP Clear Neck: supple, no adenopathy, no thyromegaly, no JVD CVS/Heart: RRR, normal S1S2, pulses present bilaterally Chest/Lungs: diminished bs bilateral, Symmetrical chest expansion, good air entry bilaterally GI/Abdomen: soft, NTND, good bowel sounds, no guarding or rebound /Bladder: no suprapubic tenderness, no CVA or paraspinal tenderness Extermity/Skin: no c/c/e, no obvious rash MSK: FROM x 4 Neuro: CN 2-12 grossly intact, no new focal deficits Psych: calm - Constitutional Vitals: Temp Pulse Resp BP Pulse Ox 98.6 F 81 18 141/66 100 06/10/19 08:29 06/10/19 17:02 06/10/19 13:52 06/10/19 17:02 06/10/19 17:02 General appearance: Present: no acute distress Results - Labs CBC & Chem 7: 06/09/19 11:05 06/10/19 06:20 Labs: Laboratory Last Values WBC 5.8 K/mm3 (4.5-11.0) 06/09/19 11:05 RBC 4.15 M/mm3 (3.65-5.03) 06/09/19 11:05 Hgb 12.7 gm/dl (10.1-14.3) 06/09/19 11:05 Hct 39.0 % (30.3-42.9) 06/09/19 11:05 MCV 94 fl (79-97) 06/09/19 11:05 MCH 31 pg (28-32) 06/09/19 11:05 MCHC 33 % (30-34) 06/09/19 11:05 RDW 15.8 % (13.2-15.2) H 06/09/19 11:05 Plt Count 236 K/mm3 (140-440) 06/09/19 11:05 Add Manual Diff Complete 06/09/19 11:05 Total Counted 100 06/09/19 11:05 Seg Neuts % (Manual) 90.0 % (40.0-70.0) H 06/09/19 11:05 Band Neutrophils % 0 % 06/09/19 11:05 Lymphocytes % (Manual) 5.0 % (13.4-35.0) L 06/09/19 11:05 Reactive Lymphs % (Man) 0 % 06/09/19 11:05 Monocytes % (Manual) 3.0 % (0.0-7.3) 06/09/19 11:05 Eosinophils % (Manual) 1.0 % (0.0-4.3) 06/09/19 11:05 Basophils % (Manual) 0 % (0.0-1.8) 06/09/19 11:05 Metamyelocytes % 1.0 % 06/09/19 11:05 Myelocytes % 0 % 06/09/19 11:05 Promyelocytes % 0 % 06/09/19 11:05 Blast Cells % 0 % 06/09/19 11:05 Nucleated RBC % Not Reportable 06/09/19 11:05 Seg Neutrophils # Man 5.2 K/mm3 (1.8-7.7) 06/09/19 11:05 Band Neutrophils # 0.0 K/mm3 06/09/19 11:05 Lymphocytes # (Manual) 0.3 K/mm3 (1.2-5.4) L 06/09/19 11:05 Abs React Lymphs (Man) 0.0 K/mm3 06/09/19 11:05 Monocytes # (Manual) 0.2 K/mm3 (0.0-0.8) 06/09/19 11:05 Eosinophils # (Manual) 0.1 K/mm3 (0.0-0.4) 06/09/19 11:05 Basophils # (Manual) 0.0 K/mm3 (0.0-0.1) 06/09/19 11:05 Metamyelocytes # 0.1 K/mm3 06/09/19 11:05 Myelocytes # 0.0 K/mm3 06/09/19 11:05 Promyelocytes # 0.0 K/mm3 06/09/19 11:05 Blast Cells # 0.0 K/mm3 06/09/19 11:05 WBC Morphology Not Reportable 06/09/19 11:05 Hypersegmented Neuts Not Reportable 06/09/19 11:05 Hyposegmented Neuts Not Reportable 06/09/19 11:05 Hypogranular Neuts Not Reportable 06/09/19 11:05 Smudge Cells Not Reportable 06/09/19 11:05 Toxic Granulation Not Reportable 06/09/19 11:05 Toxic Vacuolation Not Reportable 06/09/19 11:05 Dohle Bodies Not Reportable 06/09/19 11:05 Pelger-Huet Anomaly Not Reportable 06/09/19 11:05 Anastasiya Rods Not Reportable 06/09/19 11:05 Platelet Estimate Consistent w auto 06/09/19 11:05 Clumped Platelets Not Reportable 06/09/19 11:05 Plt Clumps, EDTA Not Reportable 06/09/19 11:05 Large Platelets Not Reportable 06/09/19 11:05 Giant Platelets Not Reportable 06/09/19 11:05 Platelet Satelliting Not Reportable 06/09/19 11:05 Plt Morphology Comment Not Reportable 06/09/19 11:05 RBC Morphology Normal 06/09/19 11:05 Dimorphic RBCs Not Reportable 06/09/19 11:05 Polychromasia Not Reportable 06/09/19 11:05 Hypochromasia Not Reportable 06/09/19 11:05 Poikilocytosis Not Reportable 06/09/19 11:05 Anisocytosis Not Reportable 06/09/19 11:05 Microcytosis Not Reportable 06/09/19 11:05 Macrocytosis Not Reportable 06/09/19 11:05 Spherocytes Not Reportable 06/09/19 11:05 Pappenheimer Bodies Not Reportable 06/09/19 11:05 Sickle Cells Not Reportable 06/09/19 11:05 Target Cells Not Reportable 06/09/19 11:05 Tear Drop Cells Not Reportable 06/09/19 11:05 Ovalocytes Not Reportable 06/09/19 11:05 Helmet Cells Not Reportable 06/09/19 11:05 [place]el[place] Bodies Not Reportable 06/09/19 11:05 [place] Rings Not Reportable 06/09/19 11:05 Adrianne Cells Not Reportable 06/09/19 11:05 Bite Cells Not Reportable 06/09/19 11:05 Crenated Cell Not Reportable 06/09/19 11:05 Elliptocytes Not Reportable 06/09/19 11:05 Acanthocytes (Spur) Not Reportable 06/09/19 11:05 Rouleaux Not Reportable 06/09/19 11:05 Hemoglobin C Crystals Not Reportable 06/09/19 11:05 Schistocytes Not Reportable 06/09/19 11:05 Malaria parasites Not Reportable 06/09/19 11:05 Remberto Bodies Not Reportable 06/09/19 11:05 Hem Pathologist Commnt No 06/09/19 11:05 PT 14.7 Sec. (12.2-14.9) 06/09/19 11:05 INR 1.16 (0.87-1.13) H 06/09/19 11:05 Sodium 147 mmol/L (137-145) H 06/10/19 06:20 Potassium 5.2 mmol/L (3.6-5.0) H 06/10/19 06:20 Chloride 109.0 mmol/L (98-107) H 06/10/19 06:20 Carbon Dioxide 23 mmol/L (22-30) 06/10/19 06:20 Anion Gap 20 mmol/L 06/10/19 06:20 BUN 31 mg/dL (7-17) H 06/10/19 06:20 Creatinine 2.0 mg/dL (0.7-1.2) H 06/10/19 06:20 Estimated GFR 29 ml/min 06/10/19 06:20 BUN/Creatinine Ratio 16 % 06/10/19 06:20 Glucose 127 mg/dL (65-100) H 06/10/19 06:20 POC Glucose 103 (70-105) 06/10/19 17:12 Calcium 8.7 mg/dL (8.4-10.2) 06/10/19 06:20 Total Bilirubin 0.60 mg/dL (0.1-1.2) 06/09/19 11:05 AST 45 units/L (5-40) H 06/09/19 11:05 ALT 33 units/L (7-56) 06/09/19 11:05 Alkaline Phosphatase 177 units/L (35-129) H 06/09/19 11:05 Total Creatine Kinase 128 units/L (30-135) 06/09/19 11:05 CK-MB (CK-2) 2.5 ng/mL (0.0-4.0) 06/09/19 11:05 CK-MB (CK-2) Rel Index 1.9 (0-4) 06/09/19 11:05 Troponin T < 0.010 ng/mL (0.00-0.029) 06/09/19 11:05 NT-Pro-B Natriuret Pep 2131 pg/mL (0-900) H 06/09/19 11:05 Total Protein 8.0 g/dL (6.3-8.2) 06/09/19 11:05 Albumin 3.8 g/dL (3.9-5) L 06/09/19 11:05 Albumin/Globulin Ratio 0.9 % 06/09/19 11:05 Urine Color Yellow (Yellow) 06/09/19 11:33 Urine Turbidity Clear (Clear) 06/09/19 11:33 Urine pH 6.0 (5.0-7.0) 06/09/19 11:33 Ur Specific [place] 1.012 (1.003-1.030) 06/09/19 11:33 Urine Protein 100 mg/dl mg/dL (Negative) 06/09/19 11:33 Urine Glucose (UA) Neg mg/dL (Negative) 06/09/19 11:33 Urine Ketones Neg mg/dL (Negative) 06/09/19 11:33 Urine Blood Neg (Negative) 06/09/19 11:33 Urine Nitrite Neg (Negative) 06/09/19 11:33 Urine Bilirubin Neg (Negative) 06/09/19 11:33 Urine Urobilinogen < 2.0 mg/dL (<2.0) 06/09/19 11:33 Ur Leukocyte Esterase Neg (Negative) 06/09/19 11:33 Urine WBC (Auto) 1.0 /HPF (0.0-6.0) 06/09/19 11:33 Urine RBC (Auto) 2.0 /HPF (0.0-6.0) 06/09/19 11:33 U Epithel Cells (Auto) < 1.0 /HPF (0-13.0) 06/09/19 11:33 Urine Mucus Few /HPF 06/09/19 11:33 Hepatitis A IgM Ab Non-reactive (NonReactive) 06/09/19 17:08 Hep Bs Antigen Non-reactive (Negative) 06/09/19 17:08 Hep B Core IgM Ab Non-reactive (NonReactive) 06/09/19 17:08 Hepatitis C Antibody Non-reactive (NonReactive) 06/09/19 17:08 Active Medications - Current Medications Current Medications: Generic Name Dose Route Start Last Admin Trade Name Freq PRN Reason Stop Dose Admin Acetaminophen 650 mg 06/09/19 18:31 Tylenol PO Q4H PRN Pain MILD(1-3)/Fever >100.5/ALVARADO Albuterol 2.5 mg 06/10/19 01:42 Proventil IH Q4HRT PRN Shortness Of Breath Albuterol/Ipratropium 1 ampul 06/10/19 08:00 06/10/19 13:52 Duoneb *Not For Prn Use* IH 1 ampul TIDRT [facility] Administration Amlodipine Besylate 5 mg 06/10/19 10:00 06/10/19 10:52 Amlodipine PO 5 mg DAILY [facility] Administration Carvedilol 12.5 mg 06/09/19 22:00 06/10/19 10:51 Coreg PO 12.5 mg BID [facility] Administration Docusate Sodium 100 mg 06/09/19 22:00 06/10/19 10:50 Colace PO 100 mg BID [facility] Administration Furosemide 40 mg 06/10/19 18:00 Lasix IV 0600,1800 [facility] Heparin Sodium (Porcine) 5,000 unit 06/09/19 22:00 06/10/19 10:52 Heparin SUB-Q 5,000 unit Q12HR [facility] Administration Azithromycin 500 mg/ Sodium 250 mls @ 250 mls/hr 06/10/19 10:00 06/10/19 10:49 Chloride IV 250 mls/hr Q24HR [facility] Administration Protocol Ceftriaxone Sodium 1 gm in 50 mls @ 100 mls/hr 06/10/19 10:00 06/10/19 18:23 Rocephin/Ns 1 Gm/50 Ml IV 100 mls/hr Q24HR [facility] Administration Protocol Insulin Glargine 10 units 06/09/19 22:00 06/09/19 21:36 Lantus SUB-Q 10 units QHS [facility] Administration Insulin Human Regular 0 units 06/09/19 22:00 06/10/19 16:30 Humulin R SUB-Q Not Given ACHS [facility] Protocol Ondansetron HCl 4 mg 06/09/19 18:31 Zofran IV Q8H PRN N/V unrelieved by Stan Pantoprazole Sodium 40 mg 06/10/19 10:00 06/10/19 10:52 Protonix PO 40 mg QAM [facility] Administration Pravastatin Sodium 40 mg 06/09/19 22:00 06/09/19 21:35 Pravachol PO 40 mg HS [facility] Administration
--- NOTE | 2019-06-10 20:12 | Progress Note ---
Assessment and Plan - Patient Problems (1) Chronic kidney disease, stage 4 (severe) Current Visit: No Status: Acute Plan to address problem: Chronic kidney disease secondary to solitary kidney and diabetic nephropathy/hypertensive nephrosclerosis. Kidney function appears better than baseline probably secondary to hemodilution with fluid overload. (2) Acute hypoxemic respiratory failure Current Visit: No Status: Acute Plan to address problem: Acute respiratory failure Secondary to acute pulmonary edema and/or pneumonia. Patient getting IV diuretics and antibiotics. Continue bronchodilator nebulizer treatments and supplemental oxygen. (3) Hypernatremia Current Visit: Yes Status: Acute Plan to address problem: Decrease furosemide to once daily. Follow up sodium in the morning (4) Acute hyperkalemia Current Visit: No Status: Acute Plan to address problem: Give a dose of Kayexalate and follow potassium tomorrow. (5) Type 2 diabetes mellitus with diabetic chronic kidney disease Current Visit: Yes Status: Acute Plan to address problem: Blood sugar management by primary attending (6) Hypertensive chronic kidney disease with stage 1 through stage 4 chronic kidney disease, or unspecified chronic kidney disease Current Visit: Yes Status: Acute Plan to address problem: Follow-up blood pressure on current medications Subjective Date of service: 06/10/19 Principal diagnosis: chronic kidney disease stage IV, Interval history: Patient seen lying in bed. She feels better today. Still short of breath on exertion but improving. at the bedside Objective - Exam Narrative Exam: Elderly -Gren[place] female lying in bed in mild respiratory distress HEENT: NCAT, pink oral mucous membrane Neck: Supple, no venous distention CVS: S1S2 RRR with no murmur, rub or gallop Chest: Coarse breath sounds with rales worse on the right lower zone Abdomen: Distended, soft, nontender, no organomegaly, bowel sounds are present Extremities: trace bilateral lower extremity edema, Genitourinary deferred, Skin warm and dry with no rash Neuro: Awake, alert no focal deficits - Vital Signs Vital signs: Vital Signs - 12hr 06/10/19 06/10/19 06/10/19 08:29 10:51 10:52 Temperature 98.6 F Pulse Rate 75 75 75 Pulse Rate [ Bilateral] Respiratory 18 Rate Respiratory Rate [Bilateral ] Blood Pressure 165/67 165/67 165/67 O2 Sat by Pulse 89 Oximetry 06/10/19 06/10/19 13:52 17:02 Temperature Pulse Rate 81 Pulse Rate [ 80 Bilateral] Respiratory Rate Respiratory 18 Rate [Bilateral ] Blood Pressure 141/66 O2 Sat by Pulse 100 Oximetry - Lab 06/09/19 11:05 06/10/19 06:20 Most recent lab results Calcium 8.7 mg/dL (8.4-10.2) 06/10/19 06:20 Medications & Allergies - Medications Allergies/Adverse Reactions: Allergies methadone Adverse Reaction (Verified 08/08/17 20:43) Vomiting tramadol Adverse Reaction (Verified 08/08/17 20:43) Vomiting unknown Allergy (Uncoded 08/08/17 20:43) Unknown PT DOES NOT NAME OR TYPE OF MEDICATION THAT SHE IS ALLERGIC TO. Home Medications: Home Medications Medication Instructions Recorded Confirmed Last Taken Type Pantoprazole Sodium [Protonix] 40 mg PO QAM 01/19/15 11/19/18 06/20/16 History Pravastatin Sodium [Pravachol] 40 mg PO HS #30 tablet 05/22/18 11/19/18 Unknown Rx Furosemide [Lasix TAB] 40 mg PO DAILY 11/19/18 11/19/18 Unknown History L. Acidophilus/Bifid. Animalis 1 each PO DAILY 11/19/18 11/19/18 Unknown History [Dialyvite Chewable Probiotic] amLODIPine 5 mg PO DAILY 11/19/18 11/19/18 Unknown History Insulin Glargine,Hum.rec.anlog 10 units SQ QHS #5 pen 11/24/18 Unknown Rx [Lantus Solostar] Lisinopril [Zestril TAB] 20 mg PO QDAY #30 tablet 11/24/18 Unknown Rx carvediloL [Coreg] 12.5 mg PO BID #60 tablet 11/24/18 Unknown Rx Active Medications: Generic Name Dose Route Start Last Admin Trade Name Freq PRN Reason Stop Dose Admin Acetaminophen 650 mg 06/09/19 18:31 Tylenol PO Q4H PRN Pain MILD(1-3)/Fever >100.5/ALVARADO Albuterol 2.5 mg 06/10/19 01:42 Proventil IH Q4HRT PRN Shortness Of Breath Albuterol/Ipratropium 1 ampul 06/10/19 08:00 06/10/19 13:52 Duoneb *Not For Prn Use* IH 1 ampul TIDRT MUNA Administration Amlodipine Besylate 5 mg 06/10/19 10:00 06/10/19 10:52 Amlodipine PO 5 mg DAILY MUNA Administration Carvedilol 12.5 mg 06/09/19 22:00 06/10/19 10:51 Coreg PO 12.5 mg BID MUNA Administration Docusate Sodium 100 mg 06/09/19 22:00 06/10/19 10:50 Colace PO 100 mg BID MUNA Administration Furosemide 40 mg 06/10/19 18:00 06/10/19 19:39 Lasix IV 40 mg 0600,1800 MUNA Administration Heparin Sodium (Porcine) 5,000 unit 06/09/19 22:00 06/10/19 10:52 Heparin SUB-Q 5,000 unit Q12HR MUNA Administration Azithromycin 500 mg/ Sodium 250 mls @ 250 mls/hr 06/10/19 10:00 06/10/19 10:49 Chloride IV 250 mls/hr Q24HR MUNA Administration Protocol Ceftriaxone Sodium 1 gm in 50 mls @ 100 mls/hr 06/10/19 10:00 06/10/19 18:23 Rocephin/Ns 1 Gm/50 Ml IV 100 mls/hr Q24HR MUNA Administration Protocol Insulin Glargine 10 units 06/09/19 22:00 06/09/19 21:36 Lantus SUB-Q 10 units QHS MUNA Administration Insulin Human Regular 0 units 06/09/19 22:00 06/10/19 16:30 Humulin R SUB-Q Not Given ACHS [facility] Protocol Ondansetron HCl 4 mg 06/09/19 18:31 Zofran IV Q8H PRN N/V unrelieved by Stan Pantoprazole Sodium 40 mg 06/10/19 10:00 06/10/19 10:52 Protonix PO 40 mg QAM MUNA Administration Pravastatin Sodium 40 mg 06/09/19 22:00 06/09/19 21:35 Pravachol PO 40 mg HS MUNA Administration
[2019-06-10] MEDS: PRAVASTATIN 40 MG TAB PO SCH (21:31)
[2019-06-10] MEDS: INSULIN GLARGINE 100 UNITS/ML SUB-Q SCH (21:42)
[2019-06-11 06:18] LABS: Hemoglobin 11.2 gm/dl (10.1-14.3); Mean Corpuscular HGB Conc 33 % (30-34); Mean Corpuscular Volume 94 fl (79-97); Platelet Count 215 K/mm3 (140-440); Red Blood Count 3.62 M/mm3 (3.65-5.03); Red Cell Distribution Width 15.9 % (13.2-15.2)
[2019-06-11 06:45] LABS: Calcium 8.4 mg/dL (8.4-10.2)
[2019-06-11] MEDS: INSULIN REGULAR, HUMAN 100 UNITS/1 ML SUB-Q SCH ×2 (07:30→21:51)
[2019-06-11] MEDS: IPRATROPIUM/ALBUTEROL SULFATE 3 ML AMPUL.NEB IH SCH ×3 (07:41→20:30)
[2019-06-11] MEDS: AZITHROMYCIN 500 MG in SODIUM CHLORIDE 0.9% 250ML 250 ML IV SCH (10:56)
[2019-06-11] MEDS: DOCUSATE SODIUM 100 MG CAP PO SCH ×2 (10:56→21:50)
[2019-06-11] MEDS: FUROSEMIDE 40 MG/4 ML INJ IV SCH (10:56)
[2019-06-11] MEDS: PANTOPRAZOLE 40 MG TAB PO SCH (10:57)
[2019-06-11] MEDS: carvediloL 12.5 MG TAB PO SCH ×2 (10:57→21:50)
[2019-06-11] MEDS: amLODIPine 5 MG TAB PO SCH (10:58)
[2019-06-11] MEDS: HEPARIN 5,000 UNIT/1 ML VIAL SUB-Q SCH ×2 (10:58→21:50)
--- NOTE | 2019-06-11 11:15 | Progress Note ---
Assessment and Plan Echo reviewed - EF 50-55%, RA mildly dilated, mild MR, mod TR, severe pulm HTN with RVSP 79mmHg, small to mod pericardial effusion with no evidence of tamponade. Will obtain V/Q scan to r/o chronic pulmonary thromboembolism. Cont present cardiac management. The patient has been seen in conjunction with Dr. Park who agrees with the assessment and plan of care. - Patient Problems (1) Acute heart failure with preserved ejection fraction (HFpEF) Current Visit: Yes Status: Acute (2) HTN (hypertension) Current Visit: Yes Status: Chronic Qualifiers: Hypertension type: essential hypertension Qualified Code(s): I10 - Essential (primary) hypertension (3) Pulmonary hypertension Current Visit: Yes Status: Chronic (4) CKD (chronic kidney disease) Current Visit: Yes Status: Chronic Qualifiers: Chronic kidney disease stage: stage 4 (severe) Qualified Code(s): N18.4 - Chronic kidney disease, stage 4 (severe) (5) Diabetes mellitus Current Visit: Yes Status: Chronic Subjective Date of service: 06/11/19 Principal diagnosis: chronic kidney disease stage IV, Interval history: pt resting in bed, states she is feeling "ok" although her at bedside states that is her standard reply regardless of how she is actually feeling. in SR. Objective Last Vital Signs Temp 99.1 F 06/11/19 05:15 Pulse 70 06/11/19 10:58 Resp 18 06/11/19 08:27 BP 151/61 06/11/19 10:58 Pulse Ox 92 06/11/19 08:27 - Physical Examination General: No Apparent Distress HEENT: Positive: Normocephaly, Mucus Membranes Moist Neck: Positive: neck supple, trachea midline Cardiac: Positive: Reg Rate and Rhythm, S1/S2 Lungs: Positive: Decreased Breath Sounds Neuro: Positive: Grossly Intact Abdomen: Positive: Soft, Active Bowel Sounds. Negative: Tender Skin: Positive: Clear. Negative: Rash Musculoskeletal: Normal Range of Motion Extremities: Present: normal, edema (trace BLE) - Labs and Meds CBC 06/11/19 Range/Units 05:40 WBC 4.6 (4.5-11.0) K/mm3 RBC 3.62 L (3.65-5.03) M/mm3 Hgb 11.2 (10.1-14.3) gm/dl Hct 34.0 (30.3-42.9) % Plt Count 215 (140-440) K/mm3 Comprehensive Metabolic Panel 06/11/19 Range/Units 05:40 Sodium 146 H (137-145) mmol/L Potassium 4.5 (3.6-5.0) mmol/L Chloride 106.9 (98-107) mmol/L Carbon Dioxide 22 (22-30) mmol/L BUN 30 H (7-17) mg/dL Creatinine 2.1 H (0.7-1.2) mg/dL Glucose 52 L (65-100) mg/dL Calcium 8.4 (8.4-10.2) mg/dL - Imaging and Cardiology EKG: image reviewed - Telemetry EKG Rhythm: Sinus Rhythm - EKG Sinus rhythms and dysrhythmias: sinus rhythm
--- NOTE | 2019-06-11 11:42 | Progress Note ---
Assessment and Plan - Patient Problems (1) Chronic kidney disease, stage 4 (severe) Current Visit: No Status: Acute Plan to address problem: Chronic kidney disease secondary to solitary kidney and diabetic nephropathy/hypertensive nephrosclerosis. Kidney function appears better than baseline probably secondary to hemodilution with fluid overload. (2) Acute hypoxemic respiratory failure Current Visit: No Status: Acute Plan to address problem: Acute respiratory failure Secondary to acute pulmonary edema and/or pneumonia. Patient getting IV diuretics and antibiotics. Continue bronchodilator nebulizer treatments and supplemental oxygen. (3) Hypernatremia Current Visit: Yes Status: Acute Plan to address problem: Sodium improved. Follow up sodium in the morning (4) Acute hyperkalemia Current Visit: No Status: Acute Plan to address problem: Potassium has improved to normal. Follow potassium (5) Type 2 diabetes mellitus with diabetic chronic kidney disease Current Visit: Yes Status: Acute Plan to address problem: Blood sugar management by primary attending (6) Hypertensive chronic kidney disease with stage 1 through stage 4 chronic kidney disease, or unspecified chronic kidney disease Current Visit: Yes Status: Acute Plan to address problem: Follow-up blood pressure on current medications Subjective Date of service: 06/11/19 Principal diagnosis: chronic kidney disease stage IV, Interval history: Patient seen lying in bed. She feels better today. Shortness of breath improving. at the bedside Objective - Exam Narrative Exam: Elderly -Malagasy female lying in bed in mild respiratory distress HEENT: NCAT, pink oral mucous membrane Neck: Supple, no venous distention CVS: S1S2 RRR with no murmur, rub or gallop Chest: Coarse breath sounds with rales worse on the right lower zone Abdomen: Distended, soft, nontender, no organomegaly, bowel sounds are present Extremities: trace bilateral lower extremity edema, Genitourinary deferred, Skin warm and dry with no rash Neuro: Awake, alert no focal deficits - Vital Signs Vital signs: Vital Signs - 12hr 06/11/19 06/11/19 06/11/19 00:10 02:00 05:15 Temperature 99.4 F 99.1 F Pulse Rate 92 H 92 H 88 Pulse Rate [ Bilateral] Respiratory 18 24 Rate Respiratory Rate [Bilateral ] Blood Pressure 92/54 138/70 O2 Sat by Pulse 91 97 Oximetry 06/11/19 06/11/19 06/11/19 07:43 08:27 10:57 Temperature Pulse Rate 70 70 Pulse Rate [ 86 Bilateral] Respiratory 18 Rate Respiratory 20 Rate [Bilateral ] Blood Pressure 151/61 151/61 O2 Sat by Pulse 92 Oximetry 06/11/19 10:58 Temperature Pulse Rate 70 Pulse Rate [ Bilateral] Respiratory Rate Respiratory Rate [Bilateral ] Blood Pressure 151/61 O2 Sat by Pulse Oximetry - Lab 06/11/19 05:40 06/11/19 05:40 Most recent lab results Calcium 8.4 mg/dL (8.4-10.2) 06/11/19 05:40 Medications & Allergies - Medications Allergies/Adverse Reactions: Allergies methadone Adverse Reaction (Verified 08/08/17 20:43) Vomiting tramadol Adverse Reaction (Verified 08/08/17 20:43) Vomiting unknown Allergy (Uncoded 08/08/17 20:43) Unknown PT DOES NOT NAME OR TYPE OF MEDICATION THAT SHE IS ALLERGIC TO. Home Medications: Home Medications Medication Instructions Recorded Confirmed Last Taken Type Pantoprazole Sodium [Protonix] 40 mg PO QAM 01/19/15 11/19/18 06/20/16 History Pravastatin Sodium [Pravachol] 40 mg PO HS #30 tablet 05/22/18 11/19/18 Unknown Rx Furosemide [Lasix TAB] 40 mg PO DAILY 11/19/18 11/19/18 Unknown History L. Acidophilus/Bifid. Animalis 1 each PO DAILY 11/19/18 11/19/18 Unknown History [Dialyvite Chewable Probiotic] amLODIPine 5 mg PO DAILY 11/19/18 11/19/18 Unknown History Insulin Glargine,Hum.rec.anlog 10 units SQ QHS #5 pen 11/24/18 Unknown Rx [Lantus Solostar] Lisinopril [Zestril TAB] 20 mg PO QDAY #30 tablet 11/24/18 Unknown Rx carvediloL [Coreg] 12.5 mg PO BID #60 tablet 11/24/18 Unknown Rx Active Medications: Generic Name Dose Route Start Last Admin Trade Name Freq PRN Reason Stop Dose Admin Acetaminophen 650 mg 06/09/19 18:31 Tylenol PO Q4H PRN Pain MILD(1-3)/Fever >100.5/ALVARADO Albuterol 2.5 mg 06/10/19 01:42 Proventil IH Q4HRT PRN Shortness Of Breath Albuterol/Ipratropium 1 ampul 06/10/19 08:00 06/11/19 07:41 Duoneb *Not For Prn Use* IH 1 ampul TIDRT MUNA Administration Amlodipine Besylate 5 mg 06/10/19 10:00 06/11/19 10:58 Amlodipine PO 5 mg DAILY MUNA Administration Carvedilol 12.5 mg 06/09/19 22:00 06/11/19 10:57 Coreg PO 12.5 mg BID MUNA Administration Docusate Sodium 100 mg 06/09/19 22:00 06/11/19 10:56 Colace PO 100 mg BID MUNA Administration Furosemide 40 mg 06/11/19 10:00 06/11/19 10:56 Lasix IV 40 mg DAILY MUNA Administration Heparin Sodium (Porcine) 5,000 unit 06/09/19 22:00 06/11/19 10:58 Heparin SUB-Q 5,000 unit Q12HR MUNA Administration Azithromycin 500 mg/ Sodium 250 mls @ 250 mls/hr 06/10/19 10:00 06/11/19 10:56 Chloride IV 250 mls/hr Q24HR [facility] Administration Protocol Ceftriaxone Sodium 1 gm in 50 mls @ 100 mls/hr 06/10/19 10:00 06/10/19 18:23 Rocephin/Ns 1 Gm/50 Ml IV 100 mls/hr Q24HR [facility] Administration Protocol Insulin Glargine 10 units 06/09/19 22:00 06/10/19 21:42 Lantus SUB-Q 10 units QHS MUNA Administration Insulin Human Regular 0 units 06/09/19 22:00 06/11/19 07:30 Humulin R SUB-Q Not Given ACHS [facility] Protocol Ondansetron HCl 4 mg 06/09/19 18:31 Zofran IV Q8H PRN N/V unrelieved by Reglan Pantoprazole Sodium 40 mg 06/10/19 10:00 06/11/19 10:57 Protonix PO 40 mg QAM MUNA Administration Pravastatin Sodium 40 mg 06/09/19 22:00 06/10/19 21:31 Pravachol PO 40 mg HS MUNA Administration
--- NOTE | 2019-06-11 12:20 | Nuclear Medicine Report ---
Nuclear medicine VQ scan INDICATION: pulm HTN. TECHNIQUE: 26.8 mCi of xenon-133 gas and 4.7 mCi of technetium 99m leveled MAA were administered COMPARISON: Chest radiograph dated 06/09/2019 FINDINGS: There is a matched ventilation/perfusion defect in the left lower lung zone which appears to be due t o enlargement of the heart. The ventilation/perfusion studies are matched. There is some air trapping noted bilaterally. IMPRESSION: 1. VQ scan is low probability for pulmonary embolus.. There is some air trapping noted bilaterally Signer Name: Kaden Matias MD Signed: 06/11/2019 12:16 PM Workstation Name: [id number]
--- NOTE | 2019-06-11 12:35 | Consultation ---
History of Present Illness Consult date: 06/11/19 Reason for consult: pulmonary hypertension History of present illness: patient admitted with shortness of breath. FAmily not at bedside to help with history. Echo done which shows an RVSP of 74 so pulmonary consulted for this. Past History Past Medical History: diabetes, heart failure, hypertension, hyperlipidemia, renal failure Past Surgical History: hysterectomy Social history: denies: smoking, alcohol abuse Family history: diabetes, hypertension Medications and Allergies Allergies Allergy/AdvReac Type Severity Reaction Status Date / Time methadone AdvReac Vomiting Verified 08/08/17 20:43 tramadol AdvReac Vomiting Verified 08/08/17 20:43 unknown Allergy Unknown Uncoded 08/08/17 20:43 Home Medications Medication Instructions Recorded Confirmed Last Taken Type Pantoprazole Sodium [Protonix] 40 mg PO QAM 01/19/15 11/19/18 06/20/16 History Pravastatin Sodium [Pravachol] 40 mg PO HS #30 tablet 05/22/18 11/19/18 Unknown Rx Furosemide [Lasix TAB] 40 mg PO DAILY 11/19/18 11/19/18 Unknown History L. Acidophilus/Bifid. Animalis 1 each PO DAILY 11/19/18 11/19/18 Unknown History [Dialyvite Chewable Probiotic] amLODIPine 5 mg PO DAILY 11/19/18 11/19/18 Unknown History Insulin Glargine,Hum.rec.anlog 10 units SQ QHS #5 pen 11/24/18 Unknown Rx [Lantus Solostar] Lisinopril [Zestril TAB] 20 mg PO QDAY #30 tablet 11/24/18 Unknown Rx carvediloL [Coreg] 12.5 mg PO BID #60 tablet 11/24/18 Unknown Rx Active Meds: Active Medications Acetaminophen (Tylenol) 650 mg PO Q4H PRN PRN Reason: Pain MILD(1-3)/Fever >100.5/ALVARADO Albuterol (Proventil) 2.5 mg IH Q4HRT PRN PRN Reason: Shortness Of Breath Albuterol/Ipratropium (Duoneb *Not For Prn Use*) 1 ampul IH TIDRT [facility] Last Admin: 06/11/19 07:41 Dose: 1 ampul Documented by: Amlodipine Besylate (Amlodipine) 5 mg PO DAILY [facility] Last Admin: 06/11/19 10:58 Dose: 5 mg Documented by: Carvedilol (Coreg) 12.5 mg PO BID [facility] Last Admin: 06/11/19 10:57 Dose: 12.5 mg Documented by: Docusate Sodium (Colace) 100 mg PO BID [facility] Last Admin: 06/11/19 10:56 Dose: 100 mg Documented by: Furosemide (Lasix) 40 mg IV DAILY [facility] Last Admin: 06/11/19 10:56 Dose: 40 mg Documented by: Heparin Sodium (Porcine) (Heparin) 5,000 unit SUB-Q Q12HR [facility] Last Admin: 06/11/19 10:58 Dose: 5,000 unit Documented by: Azithromycin 500 mg/ Sodium (Chloride) 250 mls @ 250 mls/hr IV Q24HR [facility]; Protocol Last Admin: 06/11/19 10:56 Dose: 250 mls/hr Documented by: Ceftriaxone Sodium (Rocephin/Ns 1 Gm/50 Ml) 1 gm in 50 mls @ 100 mls/hr IV Q24HR [facility]; Protocol Last Admin: 06/10/19 18:23 Dose: 100 mls/hr Documented by: Insulin Glargine (Lantus) 10 units SUB-Q QHS [facility] Last Admin: 06/10/19 21:42 Dose: 10 units Documented by: Insulin Human Regular (Humulin R) 0 units SUB-Q ACHS [facility]; Protocol Last Admin: 06/11/19 07:30 Dose: Not Given Documented by: Ondansetron HCl (Zofran) 4 mg IV Q8H PRN PRN Reason: N/V unrelieved by Reggreg Pantoprazole Sodium (Protonix) 40 mg PO QAM [facility] Last Admin: 06/11/19 10:57 Dose: 40 mg Documented by: Pravastatin Sodium (Pravachol) 40 mg PO HS [facility] Last Admin: 06/10/19 21:31 Dose: 40 mg Documented by: Review of Systems All systems: negative Physical Examination Vital signs: Vital Signs Temp Pulse Resp BP Pulse Ox 97.2 F L 71 17 131/50 83 L 06/09/19 09:49 06/09/19 09:49 06/09/19 09:49 06/09/19 09:49 06/09/19 09:49 Results - Laboratory Findings CBC and BMP: 06/11/19 05:40 06/11/19 05:40 PT/INR, D-dimer PT 14.7 Sec. (12.2-14.9) 06/09/19 11:05 INR 1.16 (0.87-1.13) H 06/09/19 11:05 Abnormal lab findings: Abnormal Labs 06/09/19 06/09/19 06/09/19 11:05 11:05 11:05 RBC RDW 15.8 H Seg Neuts % (Manual) 90.0 H Lymphocytes % (Manual) 5.0 L Lymphocytes # (Manual) 0.3 L INR 1.16 H Sodium Potassium Chloride Carbon Dioxide 20 L BUN 25 H Creatinine 1.9 H Glucose 248 H POC Glucose AST 45 H Alkaline Phosphatase 177 H NT-Pro-B Natriuret Pep 2131 H Albumin 3.8 L 06/09/19 06/09/19 06/10/19 16:08 20:42 06:20 RBC RDW Seg Neuts % (Manual) Lymphocytes % (Manual) Lymphocytes # (Manual) INR Sodium 147 H Potassium 5.2 H Chloride 109.0 H Carbon Dioxide BUN 31 H Creatinine 2.0 H Glucose 127 H POC Glucose 230 H 222 H AST Alkaline Phosphatase NT-Pro-B Natriuret Pep Albumin 06/10/19 06/10/19 06/11/19 13:40 21:32 05:40 RBC RDW Seg Neuts % (Manual) Lymphocytes % (Manual) Lymphocytes # (Manual) INR Sodium 146 H Potassium Chloride Carbon Dioxide BUN 30 H Creatinine 2.1 H Glucose 52 L POC Glucose 124 H 151 H AST Alkaline Phosphatase NT-Pro-B Natriuret Pep Albumin 06/11/19 06/11/19 06/11/19 05:40 08:53 11:04 RBC 3.62 L RDW 15.9 H Seg Neuts % (Manual) Lymphocytes % (Manual) Lymphocytes # (Manual) INR Sodium Potassium Chloride Carbon Dioxide BUN Creatinine Glucose POC Glucose 53 L 213 H AST Alkaline Phosphatase NT-Pro-B Natriuret Pep Albumin Assessment and Plan 78 y/o female admitted with dyspnea, found to have pulmonary hypertension with RVSP estimated at 79 1. Pulm HTN is not new. Patients RVSP was 64 in July of last year. So wore but most likely appropriate rise over time if not on adequate therapy. 2. Likely multifactorial given renal disease, heart disease and maybe some SANDRA with COPD 3. She will be seen in our office and attempts will be made to evaluate her for COPD 4. We will also screen her for SANDRA 5. pending the remainder of the work up, would need RHC at some point but this could be done as an out patient.
--- NOTE | 2019-06-11 18:09 | Progress Note ---
Assessment and Plan Assessment and plan: Patient is a 78-year-old woman with history of Dementia, type 2 DM, HTN, CHF and prior ESRD on HD who presents to [facility] ED with SOB and cough. Patient was on HD up until 3 days ago but was doing well and [employer] took her off Hemodialysis. In the ER her O2 sat was 83% on RA, CXR showed rightsided PNA and mild CHF, Cr 1.9. She was given nebs, empiric abx, iv lasix placed on O2 n/c and called for admission for further evaluation and Mx. * pChest x-ray: 1. Acute right middle lobe and right lower lobe pneumonia. 2. Mild CHF which is improved compared to previous exams. Acute hypoxic respiratory failure - due to underlying PNA and CHF - start on empiric abx, nebs, supplemental O2 - pulmonary consult if no improvement in next 24h Right multilober PNA, sputum cx, blood cx, treat with IV abx PORSHA on CKD stage 5, monitor renal function - suspected vasomotor nephropathy vs volume overload - consult nephrology Acute on chronic diastolic heart failure exacerbation - h/o diastolic dysfunction per chart review, no record of 2d echo - daily wt, fluid restriction, monitor ins/os, low dose lasix - obtain 2d echo, cardiology consult - treat with diuretics. HTN, resume home meds DM type 2, consistent carb diet, SSI H/O dementia, supportive care Dvt Px, heparin anticipate home tomorrow, need home O2 evaluation History Interval history: Patient was seen and examined. Follow-up on current diagnosis CHF and pna. No overnight events reported to me. Patient denies any chest pain, nausea/vomiting or severe headaches. Imaging, nursing note, chart, labs and old chart reviewed. Discussed with patient. Hospitalist Physical - Physical exam Narrative exam: Gen: WDWN, NAD, Awake, Alert, Orientated x 2 HEENT: NCAT, EOMI, PERRL, OP Clear Neck: supple, no adenopathy, no thyromegaly, no JVD CVS/Heart: RRR, normal S1S2, pulses present bilaterally Chest/Lungs: diminished bs bilateral, Symmetrical chest expansion, good air entry bilaterally GI/Abdomen: soft, NTND, good bowel sounds, no guarding or rebound /Bladder: no suprapubic tenderness, no CVA or paraspinal tenderness Extermity/Skin: no c/c/e, no obvious rash MSK: FROM x 4 Neuro: CN 2-12 grossly intact, no new focal deficits Psych: calm - Constitutional Vitals: Temp Pulse Resp BP Pulse Ox 99.1 F 86 20 151/61 92 06/11/19 05:15 06/11/19 14:00 06/11/19 14:00 06/11/19 10:58 06/11/19 10:00 General appearance: Present: no acute distress Results - Labs CBC & Chem 7: 06/11/19 05:40 06/11/19 05:40 Labs: Laboratory Last Values WBC 4.6 K/mm3 (4.5-11.0) 06/11/19 05:40 RBC 3.62 M/mm3 (3.65-5.03) L 06/11/19 05:40 Hgb 11.2 gm/dl (10.1-14.3) 06/11/19 05:40 Hct 34.0 % (30.3-42.9) 06/11/19 05:40 MCV 94 fl (79-97) 06/11/19 05:40 MCH 31 pg (28-32) 06/11/19 05:40 MCHC 33 % (30-34) 06/11/19 05:40 RDW 15.9 % (13.2-15.2) H 06/11/19 05:40 Plt Count 215 K/mm3 (140-440) 06/11/19 05:40 Add Manual Diff Complete 06/09/19 11:05 Total Counted 100 06/09/19 11:05 Seg Neuts % (Manual) 90.0 % (40.0-70.0) H 06/09/19 11:05 Band Neutrophils % 0 % 06/09/19 11:05 Lymphocytes % (Manual) 5.0 % (13.4-35.0) L 06/09/19 11:05 Reactive Lymphs % (Man) 0 % 06/09/19 11:05 Monocytes % (Manual) 3.0 % (0.0-7.3) 06/09/19 11:05 Eosinophils % (Manual) 1.0 % (0.0-4.3) 06/09/19 11:05 Basophils % (Manual) 0 % (0.0-1.8) 06/09/19 11:05 Metamyelocytes % 1.0 % 06/09/19 11:05 Myelocytes % 0 % 06/09/19 11:05 Promyelocytes % 0 % 06/09/19 11:05 Blast Cells % 0 % 06/09/19 11:05 Nucleated RBC % Not Reportable 06/09/19 11:05 Seg Neutrophils # Man 5.2 K/mm3 (1.8-7.7) 06/09/19 11:05 Band Neutrophils # 0.0 K/mm3 06/09/19 11:05 Lymphocytes # (Manual) 0.3 K/mm3 (1.2-5.4) L 06/09/19 11:05 Abs React Lymphs (Man) 0.0 K/mm3 06/09/19 11:05 Monocytes # (Manual) 0.2 K/mm3 (0.0-0.8) 06/09/19 11:05 Eosinophils # (Manual) 0.1 K/mm3 (0.0-0.4) 06/09/19 11:05 Basophils # (Manual) 0.0 K/mm3 (0.0-0.1) 06/09/19 11:05 Metamyelocytes # 0.1 K/mm3 06/09/19 11:05 Myelocytes # 0.0 K/mm3 06/09/19 11:05 Promyelocytes # 0.0 K/mm3 06/09/19 11:05 Blast Cells # 0.0 K/mm3 06/09/19 11:05 WBC Morphology Not Reportable 06/09/19 11:05 Hypersegmented Neuts Not Reportable 06/09/19 11:05 Hyposegmented Neuts Not Reportable 06/09/19 11:05 Hypogranular Neuts Not Reportable 06/09/19 11:05 Smudge Cells Not Reportable 06/09/19 11:05 Toxic Granulation Not Reportable 06/09/19 11:05 Toxic Vacuolation Not Reportable 06/09/19 11:05 Dohle Bodies Not Reportable 06/09/19 11:05 Pelger-Huet Anomaly Not Reportable 06/09/19 11:05 Anastasiya Rods Not Reportable 06/09/19 11:05 Platelet Estimate Consistent w auto 06/09/19 11:05 Clumped Platelets Not Reportable 06/09/19 11:05 Plt Clumps, EDTA Not Reportable 06/09/19 11:05 Large Platelets Not Reportable 06/09/19 11:05 Giant Platelets Not Reportable 06/09/19 11:05 Platelet Satelliting Not Reportable 06/09/19 11:05 Plt Morphology Comment Not Reportable 06/09/19 11:05 RBC Morphology Normal 06/09/19 11:05 Dimorphic RBCs Not Reportable 06/09/19 11:05 Polychromasia Not Reportable 06/09/19 11:05 Hypochromasia Not Reportable 06/09/19 11:05 Poikilocytosis Not Reportable 06/09/19 11:05 Anisocytosis Not Reportable 06/09/19 11:05 Microcytosis Not Reportable 06/09/19 11:05 Macrocytosis Not Reportable 06/09/19 11:05 Spherocytes Not Reportable 06/09/19 11:05 Pappenheimer Bodies Not Reportable 06/09/19 11:05 Sickle Cells Not Reportable 06/09/19 11:05 Target Cells Not Reportable 06/09/19 11:05 Tear Drop Cells Not Reportable 06/09/19 11:05 Ovalocytes Not Reportable 06/09/19 11:05 Helmet Cells Not Reportable 06/09/19 11:05 [place] Bodies Not Reportable 06/09/19 11:05 [place] Rings Not Reportable 06/09/19 11:05 [place] Cells Not Reportable 06/09/19 11:05 Bite Cells Not Reportable 06/09/19 11:05 Crenated Cell Not Reportable 06/09/19 11:05 Elliptocytes Not Reportable 06/09/19 11:05 Acanthocytes (Spur) Not Reportable 06/09/19 11:05 Rouleaux Not Reportable 06/09/19 11:05 Hemoglobin C Crystals Not Reportable 06/09/19 11:05 Schistocytes Not Reportable 06/09/19 11:05 Malaria parasites Not Reportable 06/09/19 11:05 [place] Bodies Not Reportable 06/09/19 11:05 Hem Pathologist Commnt No 06/09/19 11:05 PT 14.7 Sec. (12.2-14.9) 06/09/19 11:05 INR 1.16 (0.87-1.13) H 06/09/19 11:05 Sodium 146 mmol/L (137-145) H 06/11/19 05:40 Potassium 4.5 mmol/L (3.6-5.0) 06/11/19 05:40 Chloride 106.9 mmol/L (98-107) 06/11/19 05:40 Carbon Dioxide 22 mmol/L (22-30) 06/11/19 05:40 Anion Gap 22 mmol/L 06/11/19 05:40 BUN 30 mg/dL (7-17) H 06/11/19 05:40 Creatinine 2.1 mg/dL (0.7-1.2) H 06/11/19 05:40 Estimated GFR 28 ml/min 06/11/19 05:40 BUN/Creatinine Ratio 14 % 06/11/19 05:40 Glucose 52 mg/dL (65-100) L 06/11/19 05:40 POC Glucose 111 (70-105) H 06/11/19 16:35 Calcium 8.4 mg/dL (8.4-10.2) 06/11/19 05:40 Total Bilirubin 0.60 mg/dL (0.1-1.2) 06/09/19 11:05 AST 45 units/L (5-40) H 06/09/19 11:05 ALT 33 units/L (7-56) 06/09/19 11:05 Alkaline Phosphatase 177 units/L (35-129) H 06/09/19 11:05 Total Creatine Kinase 128 units/L (30-135) 06/09/19 11:05 CK-MB (CK-2) 2.5 ng/mL (0.0-4.0) 06/09/19 11:05 CK-MB (CK-2) Rel Index 1.9 (0-4) 06/09/19 11:05 Troponin T < 0.010 ng/mL (0.00-0.029) 06/09/19 11:05 NT-Pro-B Natriuret Pep 2131 pg/mL (0-900) H 06/09/19 11:05 Total Protein 8.0 g/dL (6.3-8.2) 06/09/19 11:05 Albumin 3.8 g/dL (3.9-5) L 06/09/19 11:05 Albumin/Globulin Ratio 0.9 % 06/09/19 11:05 Urine Color Yellow (Yellow) 06/09/19 11:33 Urine Turbidity Clear (Clear) 06/09/19 11:33 Urine pH 6.0 (5.0-7.0) 06/09/19 11:33 Ur Specific [place] 1.012 (1.003-1.030) 06/09/19 11:33 Urine Protein 100 mg/dl mg/dL (Negative) 06/09/19 11:33 Urine Glucose (UA) Neg mg/dL (Negative) 06/09/19 11:33 Urine Ketones Neg mg/dL (Negative) 06/09/19 11:33 Urine Blood Neg (Negative) 06/09/19 11:33 Urine Nitrite Neg (Negative) 06/09/19 11:33 Urine Bilirubin Neg (Negative) 06/09/19 11:33 Urine Urobilinogen < 2.0 mg/dL (<2.0) 06/09/19 11:33 Ur Leukocyte Esterase Neg (Negative) 06/09/19 11:33 Urine WBC (Auto) 1.0 /HPF (0.0-6.0) 06/09/19 11:33 Urine RBC (Auto) 2.0 /HPF (0.0-6.0) 06/09/19 11:33 U Epithel Cells (Auto) < 1.0 /HPF (0-13.0) 06/09/19 11:33 Urine Mucus Few /HPF 06/09/19 11:33 Hepatitis A IgM Ab Non-reactive (NonReactive) 06/09/19 17:08 Hep Bs Antigen Non-reactive (Negative) 06/09/19 17:08 Hep B Core IgM Ab Non-reactive (NonReactive) 06/09/19 17:08 Hepatitis C Antibody Non-reactive (NonReactive) 06/09/19 17:08 Active Medications - Current Medications Current Medications: Generic Name Dose Route Start Last Admin Trade Name Freq PRN Reason Stop Dose Admin Acetaminophen 650 mg 06/09/19 18:31 Tylenol PO Q4H PRN Pain MILD(1-3)/Fever >100.5/ALVARADO Albuterol 2.5 mg 06/10/19 01:42 Proventil IH Q4HRT PRN Shortness Of Breath Albuterol/Ipratropium 1 ampul 06/10/19 08:00 06/11/19 14:44 Duoneb *Not For Prn Use* IH 1 ampul TIDRT MUNA Administration Amlodipine Besylate 5 mg 06/10/19 10:00 06/11/19 10:58 Amlodipine PO 5 mg DAILY MUNA Administration Carvedilol 12.5 mg 06/09/19 22:00 06/11/19 10:57 Coreg PO 12.5 mg BID MUNA Administration Docusate Sodium 100 mg 06/09/19 22:00 06/11/19 10:56 Colace PO 100 mg BID MUNA Administration Furosemide 40 mg 06/11/19 10:00 06/11/19 10:56 Lasix IV 40 mg DAILY MUNA Administration Heparin Sodium (Porcine) 5,000 unit 06/09/19 22:00 06/11/19 10:58 Heparin SUB-Q 5,000 unit Q12HR MUNA Administration Azithromycin 500 mg/ Sodium 250 mls @ 250 mls/hr 06/10/19 10:00 06/11/19 10:56 Chloride IV 250 mls/hr Q24HR [facility] Administration Protocol Ceftriaxone Sodium 1 gm in 50 mls @ 100 mls/hr 06/10/19 10:00 06/10/19 18:23 Rocephin/Ns 1 Gm/50 Ml IV 100 mls/hr Q24HR [facility] Administration Protocol Insulin Glargine 10 units 06/09/19 22:00 06/10/19 21:42 Lantus SUB-Q 10 units QHS MUNA Administration Insulin Human Regular 0 units 06/09/19 22:00 06/11/19 07:30 Humulin R SUB-Q Not Given ACHS [facility] Protocol Ondansetron HCl 4 mg 06/09/19 18:31 Zofran IV Q8H PRN N/V unrelieved by Reggreg Pantoprazole Sodium 40 mg 06/10/19 10:00 06/11/19 10:57 Protonix PO 40 mg QAM MUNA Administration Pravastatin Sodium 40 mg 06/09/19 22:00 06/10/19 21:31 Pravachol PO 40 mg HS MUNA Administration
[2019-06-11] MEDS: PRAVASTATIN 40 MG TAB PO SCH (21:50)
[2019-06-11] MEDS: INSULIN GLARGINE 100 UNITS/ML SUB-Q SCH (21:51)
[2019-06-12] MEDS: IPRATROPIUM/ALBUTEROL SULFATE 3 ML AMPUL.NEB IH SCH ×3 (08:19→21:18)
[2019-06-12] MEDS: INSULIN REGULAR, HUMAN 100 UNITS/1 ML SUB-Q SCH ×5 (08:30→21:57)
[2019-06-12] MEDS: AZITHROMYCIN 500 MG in SODIUM CHLORIDE 0.9% 250ML 250 ML IV SCH (09:16)
[2019-06-12] MEDS: DOCUSATE SODIUM 100 MG CAP PO SCH ×2 (09:17→21:56)
[2019-06-12] MEDS: cefTRIAXone/NS 1 GM/50 ML 1 GM/50 ML BAG IV SCH ×2 (09:17)
[2019-06-12] MEDS: PANTOPRAZOLE 40 MG TAB PO SCH (09:17)
[2019-06-12] MEDS: HEPARIN 5,000 UNIT/1 ML VIAL SUB-Q SCH ×2 (09:18→21:56)
[2019-06-12] MEDS: carvediloL 12.5 MG TAB PO SCH ×2 (09:18→21:56)
[2019-06-12] MEDS: amLODIPine 5 MG TAB PO SCH (09:18)
[2019-06-12] MEDS: FUROSEMIDE 40 MG/4 ML INJ IV SCH (10:30)
--- NOTE | 2019-06-12 12:01 | Progress Note ---
Assessment and Plan V/Q scan low prob for PE. Currently stable cardiac status. Cont present cardiac management. Volume optimization per nephrology. Will follow peripherally. The patient has been seen in conjunction with Dr. Park who agrees with the assessment and plan of care. - Patient Problems (1) Acute heart failure with preserved ejection fraction (HFpEF) Current Visit: Yes Status: Acute (2) HTN (hypertension) Current Visit: Yes Status: Chronic Qualifiers: Hypertension type: essential hypertension Qualified Code(s): I10 - Essential (primary) hypertension (3) Pulmonary hypertension Current Visit: Yes Status: Chronic (4) CKD (chronic kidney disease) Current Visit: Yes Status: Chronic Qualifiers: Chronic kidney disease stage: stage 4 (severe) Qualified Code(s): N18.4 - Chronic kidney disease, stage 4 (severe) (5) Diabetes mellitus Current Visit: Yes Status: Chronic Subjective Date of service: 06/12/19 Principal diagnosis: chronic kidney disease stage IV, Interval history: pt resting in bed, no current complaints. in SR. Objective Last Vital Signs Temp 98.7 F 06/12/19 08:11 Pulse 81 06/12/19 08:20 Resp 20 06/12/19 08:20 BP 145/71 06/12/19 08:11 Pulse Ox 100 06/12/19 04:14 - Physical Examination General: No Apparent Distress HEENT: Positive: Normocephaly, Mucus Membranes Moist Neck: Positive: neck supple, trachea midline Cardiac: Positive: Reg Rate and Rhythm, S1/S2 Lungs: Positive: Decreased Breath Sounds Neuro: Positive: Grossly Intact Abdomen: Positive: Soft, Active Bowel Sounds. Negative: Tender Skin: Positive: Clear. Negative: Rash Musculoskeletal: Normal Range of Motion Extremities: Present: normal, edema (trace BLE) - Imaging and Cardiology EKG: image reviewed Echo: report reviewed (EF 50-55%, RA mildly dilated, mild MR, mod TR, severe pulm HTN with RVSP 79mmHg, small to mod pericardial effusion with no evidence of tamponade. ) - Telemetry EKG Rhythm: Sinus Rhythm - EKG Sinus rhythms and dysrhythmias: sinus rhythm
--- NOTE | 2019-06-12 12:50 | Progress Note ---
Assessment and Plan 78 y/o female admitted with dyspnea, found to have pulmonary hypertension with RVSP estimated at 79 No new recommendations for today. Will arrange follow up in our office to evaluate for COPD 1. Pulm HTN is not new. Patients RVSP was 64 in July of last year. So wore but most likely appropriate rise over time if not on adequate therapy. 2. Likely multifactorial given renal disease, heart disease and maybe some SANDRA with COPD 3. She will be seen in our office and attempts will be made to evaluate her for COPD 4. We will also screen her for SANDRA 5. pending the remainder of the work up, would need RHC at some point but this could be done as an out patient. Subjective Date of service: 06/12/19 Principal diagnosis: chronic kidney disease stage IV, Interval history: No acute events. Pulm status is stable. Objective Vital Signs - 12hr 06/12/19 06/12/19 06/12/19 02:00 04:14 08:11 Temperature 98.2 F 98.7 F Pulse Rate 83 70 Pulse Rate [ Bilateral] Respiratory 18 18 Rate Respiratory Rate [Bilateral ] Blood Pressure 139/54 145/71 O2 Sat by Pulse 100 Oximetry 06/12/19 06/12/19 08:20 10:00 Temperature Pulse Rate 70 Pulse Rate [ 81 Bilateral] Respiratory Rate Respiratory 20 Rate [Bilateral ] Blood Pressure O2 Sat by Pulse Oximetry CBC and BMP: 06/11/19 05:40 06/11/19 05:40 ABG, PT/INR, D-dimer: PT/INR, D-dimer PT 14.7 Sec. (12.2-14.9) 06/09/19 11:05 INR 1.16 (0.87-1.13) H 06/09/19 11:05 Abnormal lab findings: Abnormal Labs 06/09/19 06/09/19 06/09/19 11:05 11:05 11:05 RBC RDW 15.8 H Seg Neuts % (Manual) 90.0 H Lymphocytes % (Manual) 5.0 L Lymphocytes # (Manual) 0.3 L INR 1.16 H Sodium Potassium Chloride Carbon Dioxide 20 L BUN 25 H Creatinine 1.9 H Glucose 248 H POC Glucose AST 45 H Alkaline Phosphatase 177 H NT-Pro-B Natriuret Pep 2131 H Albumin 3.8 L 06/09/19 06/09/19 06/10/19 16:08 20:42 06:20 RBC RDW Seg Neuts % (Manual) Lymphocytes % (Manual) Lymphocytes # (Manual) INR Sodium 147 H Potassium 5.2 H Chloride 109.0 H Carbon Dioxide BUN 31 H Creatinine 2.0 H Glucose 127 H POC Glucose 230 H 222 H AST Alkaline Phosphatase NT-Pro-B Natriuret Pep Albumin 06/10/19 06/10/19 06/11/19 13:40 21:32 05:40 RBC RDW Seg Neuts % (Manual) Lymphocytes % (Manual) Lymphocytes # (Manual) INR Sodium 146 H Potassium Chloride Carbon Dioxide BUN 30 H Creatinine 2.1 H Glucose 52 L POC Glucose 124 H 151 H AST Alkaline Phosphatase NT-Pro-B Natriuret Pep Albumin 06/11/19 06/11/19 06/11/19 05:40 08:53 11:04 RBC 3.62 L RDW 15.9 H Seg Neuts % (Manual) Lymphocytes % (Manual) Lymphocytes # (Manual) INR Sodium Potassium Chloride Carbon Dioxide BUN Creatinine Glucose POC Glucose 53 L 213 H AST Alkaline Phosphatase NT-Pro-B Natriuret Pep Albumin 06/11/19 06/12/19 06/12/19 16:35 08:15 09:44 RBC RDW Seg Neuts % (Manual) Lymphocytes % (Manual) Lymphocytes # (Manual) INR Sodium Potassium Chloride Carbon Dioxide BUN Creatinine Glucose POC Glucose 111 H 63 L 175 H AST Alkaline Phosphatase NT-Pro-B Natriuret Pep Albumin 06/12/19 12:34 RBC RDW Seg Neuts % (Manual) Lymphocytes % (Manual) Lymphocytes # (Manual) INR Sodium Potassium Chloride Carbon Dioxide BUN Creatinine Glucose POC Glucose 122 H AST Alkaline Phosphatase NT-Pro-B Natriuret Pep Albumin
--- NOTE | 2019-06-12 17:38 | Progress Note ---
Assessment and Plan Assessment and plan: Patient is a 78-year-old woman with history of Dementia, type 2 DM, HTN, CHF and prior ESRD on HD who presents to [facility] ED with SOB and cough. Patient was on HD up until 3 days ago but was doing well and Delivery Truck Driver took her off Hemodialysis. In the ER her O2 sat was 83% on RA, CXR showed rightsided PNA and mild CHF, Cr 1.9. She was given nebs, empiric abx, iv lasix placed on O2 n/c and called for admission for further evaluation and Mx. * pChest x-ray: 1. Acute right middle lobe and right lower lobe pneumonia. 2. Mild CHF which is improved compared to previous exams. Acute hypoxic respiratory failure - due to underlying PNA and CHF - start on empiric abx, nebs, supplemental O2 - pulmonary consult if no improvement in next 24h Right multilober PNA, sputum cx, blood cx, treat with IV abx PORSHA on CKD stage 5, monitor renal function - suspected vasomotor nephropathy vs volume overload - consult nephrology Acute on chronic diastolic heart failure exacerbation - h/o diastolic dysfunction per chart review, no record of 2d echo - daily wt, fluid restriction, monitor ins/os, low dose lasix - reviewed 2d echo, cardiology consulted - treat with diuretics. HTN, resume home meds DM type 2, consistent carb diet, SSI H/O dementia, supportive care Severe pulmonary hypertension: consulted Pulm, input noted Dvt Px, heparin Disposition: still on O2, family wants home O2, still need home o2 evaluation History Interval history: Patient was seen and examined. Follow-up on current diagnosis CHF and pna. No overnight events reported to me. Patient denies any chest pain, nausea/vomiting or severe headaches. Imaging, nursing note, chart, labs and old chart reviewed. Discussed with patient. Hospitalist Physical - Physical exam Narrative exam: Gen: WDWN, NAD, Awake, Alert, Orientated x 2 HEENT: NCAT, EOMI, PERRL, OP Clear Neck: supple, no adenopathy, no thyromegaly, no JVD CVS/Heart: RRR, normal S1S2, pulses present bilaterally Chest/Lungs: diminished bs bilateral, Symmetrical chest expansion, good air entry bilaterally GI/Abdomen: soft, NTND, good bowel sounds, no guarding or rebound /Bladder: no suprapubic tenderness, no CVA or paraspinal tenderness Extermity/Skin: no c/c/e, no obvious rash MSK: FROM x 4 Neuro: CN 2-12 grossly intact, no new focal deficits Psych: calm - Constitutional Vitals: Temp Pulse Resp BP Pulse Ox 98.8 F 72 18 148/76 100 06/12/19 13:14 06/12/19 13:14 06/12/19 13:14 06/12/19 13:14 06/12/19 13:14 General appearance: Present: no acute distress Results - Labs CBC & Chem 7: 06/11/19 05:40 06/11/19 05:40 Labs: Laboratory Last Values WBC 4.6 K/mm3 (4.5-11.0) 06/11/19 05:40 RBC 3.62 M/mm3 (3.65-5.03) L 06/11/19 05:40 Hgb 11.2 gm/dl (10.1-14.3) 06/11/19 05:40 Hct 34.0 % (30.3-42.9) 06/11/19 05:40 MCV 94 fl (79-97) 06/11/19 05:40 MCH 31 pg (28-32) 06/11/19 05:40 MCHC 33 % (30-34) 06/11/19 05:40 RDW 15.9 % (13.2-15.2) H 06/11/19 05:40 Plt Count 215 K/mm3 (140-440) 06/11/19 05:40 Add Manual Diff Complete 06/09/19 11:05 Total Counted 100 06/09/19 11:05 Seg Neuts % (Manual) 90.0 % (40.0-70.0) H 06/09/19 11:05 Band Neutrophils % 0 % 06/09/19 11:05 Lymphocytes % (Manual) 5.0 % (13.4-35.0) L 06/09/19 11:05 Reactive Lymphs % (Man) 0 % 06/09/19 11:05 Monocytes % (Manual) 3.0 % (0.0-7.3) 06/09/19 11:05 Eosinophils % (Manual) 1.0 % (0.0-4.3) 06/09/19 11:05 Basophils % (Manual) 0 % (0.0-1.8) 06/09/19 11:05 Metamyelocytes % 1.0 % 06/09/19 11:05 Myelocytes % 0 % 06/09/19 11:05 Promyelocytes % 0 % 06/09/19 11:05 Blast Cells % 0 % 06/09/19 11:05 Nucleated RBC % Not Reportable 06/09/19 11:05 Seg Neutrophils # Man 5.2 K/mm3 (1.8-7.7) 06/09/19 11:05 Band Neutrophils # 0.0 K/mm3 06/09/19 11:05 Lymphocytes # (Manual) 0.3 K/mm3 (1.2-5.4) L 06/09/19 11:05 Abs React Lymphs (Man) 0.0 K/mm3 06/09/19 11:05 Monocytes # (Manual) 0.2 K/mm3 (0.0-0.8) 06/09/19 11:05 Eosinophils # (Manual) 0.1 K/mm3 (0.0-0.4) 06/09/19 11:05 Basophils # (Manual) 0.0 K/mm3 (0.0-0.1) 06/09/19 11:05 Metamyelocytes # 0.1 K/mm3 06/09/19 11:05 Myelocytes # 0.0 K/mm3 06/09/19 11:05 Promyelocytes # 0.0 K/mm3 06/09/19 11:05 Blast Cells # 0.0 K/mm3 06/09/19 11:05 WBC Morphology Not Reportable 06/09/19 11:05 Hypersegmented Neuts Not Reportable 06/09/19 11:05 Hyposegmented Neuts Not Reportable 06/09/19 11:05 Hypogranular Neuts Not Reportable 06/09/19 11:05 Smudge Cells Not Reportable 06/09/19 11:05 Toxic Granulation Not Reportable 06/09/19 11:05 Toxic Vacuolation Not Reportable 06/09/19 11:05 Dohle Bodies Not Reportable 06/09/19 11:05 Pelger-Huet Anomaly Not Reportable 06/09/19 11:05 Anastasiya Rods Not Reportable 06/09/19 11:05 Platelet Estimate Consistent w auto 06/09/19 11:05 Clumped Platelets Not Reportable 06/09/19 11:05 Plt Clumps, EDTA Not Reportable 06/09/19 11:05 Large Platelets Not Reportable 06/09/19 11:05 Giant Platelets Not Reportable 06/09/19 11:05 Platelet Satelliting Not Reportable 06/09/19 11:05 Plt Morphology Comment Not Reportable 06/09/19 11:05 RBC Morphology Normal 06/09/19 11:05 Dimorphic RBCs Not Reportable 06/09/19 11:05 Polychromasia Not Reportable 06/09/19 11:05 Hypochromasia Not Reportable 06/09/19 11:05 Poikilocytosis Not Reportable 06/09/19 11:05 Anisocytosis Not Reportable 06/09/19 11:05 Microcytosis Not Reportable 06/09/19 11:05 Macrocytosis Not Reportable 06/09/19 11:05 Spherocytes Not Reportable 06/09/19 11:05 Pappenheimer Bodies Not Reportable 06/09/19 11:05 Sickle Cells Not Reportable 06/09/19 11:05 Target Cells Not Reportable 06/09/19 11:05 Tear Drop Cells Not Reportable 06/09/19 11:05 Ovalocytes Not Reportable 06/09/19 11:05 Helmet Cells Not Reportable 06/09/19 11:05 Cornelius-Shinglehouse Bodies Not Reportable 06/09/19 11:05 Lake Rings Not Reportable 06/09/19 11:05 Adrianne Cells Not Reportable 06/09/19 11:05 Bite Cells Not Reportable 06/09/19 11:05 Crenated Cell Not Reportable 06/09/19 11:05 Elliptocytes Not Reportable 06/09/19 11:05 Acanthocytes (Spur) Not Reportable 06/09/19 11:05 Rouleaux Not Reportable 06/09/19 11:05 Hemoglobin C Crystals Not Reportable 06/09/19 11:05 Schistocytes Not Reportable 06/09/19 11:05 Malaria parasites Not Reportable 06/09/19 11:05 Remberto Bodies Not Reportable 06/09/19 11:05 Hem Pathologist Commnt No 06/09/19 11:05 PT 14.7 Sec. (12.2-14.9) 06/09/19 11:05 INR 1.16 (0.87-1.13) H 06/09/19 11:05 Sodium 146 mmol/L (137-145) H 06/11/19 05:40 Potassium 4.5 mmol/L (3.6-5.0) 06/11/19 05:40 Chloride 106.9 mmol/L (98-107) 06/11/19 05:40 Carbon Dioxide 22 mmol/L (22-30) 06/11/19 05:40 Anion Gap 22 mmol/L 06/11/19 05:40 BUN 30 mg/dL (7-17) H 06/11/19 05:40 Creatinine 2.1 mg/dL (0.7-1.2) H 06/11/19 05:40 Estimated GFR 28 ml/min 06/11/19 05:40 BUN/Creatinine Ratio 14 % 06/11/19 05:40 Glucose 52 mg/dL (65-100) L 06/11/19 05:40 POC Glucose 122 (70-105) H 06/12/19 12:34 Calcium 8.4 mg/dL (8.4-10.2) 06/11/19 05:40 Total Bilirubin 0.60 mg/dL (0.1-1.2) 06/09/19 11:05 AST 45 units/L (5-40) H 06/09/19 11:05 ALT 33 units/L (7-56) 06/09/19 11:05 Alkaline Phosphatase 177 units/L (35-129) H 06/09/19 11:05 Total Creatine Kinase 128 units/L (30-135) 06/09/19 11:05 CK-MB (CK-2) 2.5 ng/mL (0.0-4.0) 06/09/19 11:05 CK-MB (CK-2) Rel Index 1.9 (0-4) 06/09/19 11:05 Troponin T < 0.010 ng/mL (0.00-0.029) 06/09/19 11:05 NT-Pro-B Natriuret Pep 2131 pg/mL (0-900) H 06/09/19 11:05 Total Protein 8.0 g/dL (6.3-8.2) 06/09/19 11:05 Albumin 3.8 g/dL (3.9-5) L 06/09/19 11:05 Albumin/Globulin Ratio 0.9 % 06/09/19 11:05 Urine Color Yellow (Yellow) 06/09/19 11:33 Urine Turbidity Clear (Clear) 06/09/19 11:33 Urine pH 6.0 (5.0-7.0) 06/09/19 11:33 Ur Specific Ald[place] 1.012 (1.003-1.030) 06/09/19 11:33 Urine Protein 100 mg/dl mg/dL (Negative) 06/09/19 11:33 Urine Glucose (UA) Neg mg/dL (Negative) 06/09/19 11:33 Urine Ketones Neg mg/dL (Negative) 06/09/19 11:33 Urine Blood Neg (Negative) 06/09/19 11:33 Urine Nitrite Neg (Negative) 06/09/19 11:33 Urine Bilirubin Neg (Negative) 06/09/19 11:33 Urine Urobilinogen < 2.0 mg/dL (<2.0) 06/09/19 11:33 Ur Leukocyte Esterase Neg (Negative) 06/09/19 11:33 Urine WBC (Auto) 1.0 /HPF (0.0-6.0) 06/09/19 11:33 Urine RBC (Auto) 2.0 /HPF (0.0-6.0) 06/09/19 11:33 U Epithel Cells (Auto) < 1.0 /HPF (0-13.0) 06/09/19 11:33 Urine Mucus Few /HPF 06/09/19 11:33 Hepatitis A IgM Ab Non-reactive (NonReactive) 06/09/19 17:08 Hep Bs Antigen Non-reactive (Negative) 06/09/19 17:08 Hep B Core IgM Ab Non-reactive (NonReactive) 06/09/19 17:08 Hepatitis C Antibody Non-reactive (NonReactive) 06/09/19 17:08 Active Medications - Current Medications Current Medications: Generic Name Dose Route Start Last Admin Trade Name Freq PRN Reason Stop Dose Admin Acetaminophen 650 mg 06/09/19 18:31 Tylenol PO Q4H PRN Pain MILD(1-3)/Fever >100.5/ALVARADO Albuterol 2.5 mg 06/10/19 01:42 Proventil IH Q4HRT PRN Shortness Of Breath Albuterol/Ipratropium 1 ampul 06/10/19 08:00 06/12/19 14:22 Duoneb *Not For Prn Use* IH Not Given TIDRT [facility] Amlodipine Besylate 5 mg 06/10/19 10:00 06/12/19 09:18 Amlodipine PO 5 mg DAILY [facility] Administration Carvedilol 12.5 mg 06/09/19 22:00 06/12/19 09:18 Coreg PO 12.5 mg BID [facility] Administration Docusate Sodium 100 mg 06/09/19 22:00 06/12/19 09:17 Colace PO 100 mg BID [facility] Administration Furosemide 40 mg 06/11/19 10:00 06/12/19 10:30 Lasix IV 40 mg DAILY [facility] Administration Heparin Sodium (Porcine) 5,000 unit 06/09/19 22:00 06/12/19 09:18 Heparin SUB-Q 5,000 unit Q12HR [facility] Administration Azithromycin 500 mg/ Sodium 250 mls @ 250 mls/hr 06/10/19 10:00 06/12/19 09:16 Chloride IV 250 mls/hr Q24HR [facility] Administration Protocol Ceftriaxone Sodium 1 gm in 50 mls @ 100 mls/hr 06/10/19 10:00 06/12/19 09:17 Rocephin/Ns 1 Gm/50 Ml IV 100 mls/hr Q24HR [facility] Administration Protocol Insulin Glargine 10 units 06/09/19 22:00 06/11/19 21:51 Lantus SUB-Q Not Given QHS [facility] Insulin Human Regular 0 units 06/09/19 22:00 06/12/19 12:42 Humulin R SUB-Q Not Given ACHS [facility] Protocol Ondansetron HCl 4 mg 06/09/19 18:31 Zofran IV Q8H PRN N/V unrelieved by Reglan Pantoprazole Sodium 40 mg 06/10/19 10:00 06/12/19 09:17 Protonix PO 40 mg QAM [facility] Administration Pravastatin Sodium 40 mg 06/09/19 22:00 06/11/19 21:50 Pravachol PO 40 mg HS [facility] Administration
--- NOTE | 2019-06-12 18:34 | Progress Note ---
Assessment and Plan - Patient Problems (1) Chronic kidney disease, stage 4 (severe) Current Visit: No Status: Acute Plan to address problem: Chronic kidney disease secondary to solitary kidney and diabetic nephropathy/hypertensive nephrosclerosis. Kidney function appears better than baseline probably secondary to hemodilution with fluid overload. Now marginally worse with diuresis. Follow-up electrolytes and renal function (2) Acute hypoxemic respiratory failure Current Visit: No Status: Acute Plan to address problem: Acute respiratory failure Secondary to acute pulmonary edema and/or pneumonia. Patient getting IV diuretics and antibiotics. Improving. Continue bronchodilator nebulizer treatments and supplemental oxygen. (3) Hypernatremia Current Visit: Yes Status: Acute Plan to address problem: Sodium improved. Follow up sodium in the morning (4) Acute hyperkalemia Current Visit: No Status: Acute Plan to address problem: Potassium has improved to normal. Follow potassium (5) Type 2 diabetes mellitus with diabetic chronic kidney disease Current Visit: Yes Status: Acute Plan to address problem: Blood sugar management by primary attending (6) Hypertensive chronic kidney disease with stage 1 through stage 4 chronic kidney disease, or unspecified chronic kidney disease Current Visit: Yes Status: Acute Plan to address problem: Follow-up blood pressure on current medications Subjective Date of service: 06/12/19 Principal diagnosis: chronic kidney disease stage IV, Interval history: Patient seen lying in bed. She again feels better today. Shortness of breath improving. at the bedside Objective - Exam Narrative Exam: Elderly -[place] female lying in bed in mild respiratory distress HEENT: NCAT, pink oral mucous membrane Neck: Supple, no venous distention CVS: S1S2 RRR with no murmur, rub or gallop Chest: Coarse breath sounds with mildly diminished breath sounds in lower zones Abdomen: Distended, soft, nontender, no organomegaly, bowel sounds are present Extremities: trace bilateral lower extremity edema, Genitourinary deferred, Skin warm and dry with no rash Neuro: Awake, alert no focal deficits - Vital Signs Vital signs: Vital Signs - 12hr 06/12/19 06/12/19 06/12/19 08:11 08:20 10:00 Temperature 98.7 F Pulse Rate 70 Pulse Rate [ 81 Bilateral] Respiratory 18 Rate Respiratory 20 Rate [Bilateral ] Blood Pressure 145/71 O2 Sat by Pulse Oximetry 06/12/19 13:14 Temperature 98.8 F Pulse Rate 72 Pulse Rate [ Bilateral] Respiratory 18 Rate Respiratory Rate [Bilateral ] Blood Pressure 148/76 O2 Sat by Pulse 100 Oximetry - Lab 06/11/19 05:40 06/11/19 05:40 Most recent lab results Calcium 8.4 mg/dL (8.4-10.2) 06/11/19 05:40 Medications & Allergies - Medications Allergies/Adverse Reactions: Allergies methadone Adverse Reaction (Verified 08/08/17 20:43) Vomiting tramadol Adverse Reaction (Verified 08/08/17 20:43) Vomiting unknown Allergy (Uncoded 08/08/17 20:43) Unknown PT DOES NOT NAME OR TYPE OF MEDICATION THAT SHE IS ALLERGIC TO. Home Medications: Home Medications Medication Instructions Recorded Confirmed Last Taken Type Pantoprazole Sodium [Protonix] 40 mg PO QAM 01/19/15 11/19/18 06/20/16 History Pravastatin Sodium [Pravachol] 40 mg PO HS #30 tablet 05/22/18 11/19/18 Unknown Rx Furosemide [Lasix TAB] 40 mg PO DAILY 11/19/18 11/19/18 Unknown History L. Acidophilus/Bifid. Animalis 1 each PO DAILY 11/19/18 11/19/18 Unknown History [Dialyvite Chewable Probiotic] amLODIPine 5 mg PO DAILY 11/19/18 11/19/18 Unknown History Insulin Glargine,Hum.rec.anlog 10 units SQ QHS #5 pen 11/24/18 Unknown Rx [Lantus Solostar] Lisinopril [Zestril TAB] 20 mg PO QDAY #30 tablet 11/24/18 Unknown Rx carvediloL [Coreg] 12.5 mg PO BID #60 tablet 11/24/18 Unknown Rx Active Medications: Generic Name Dose Route Start Last Admin Trade Name Freq PRN Reason Stop Dose Admin Acetaminophen 650 mg 06/09/19 18:31 Tylenol PO Q4H PRN Pain MILD(1-3)/Fever >100.5/ALVARADO Albuterol 2.5 mg 06/10/19 01:42 Proventil IH Q4HRT PRN Shortness Of Breath Albuterol/Ipratropium 1 ampul 06/10/19 08:00 06/12/19 14:22 Duoneb *Not For Prn Use* IH Not Given TIDRT [facility] Amlodipine Besylate 5 mg 06/10/19 10:00 06/12/19 09:18 Amlodipine PO 5 mg DAILY [facility] Administration Carvedilol 12.5 mg 06/09/19 22:00 06/12/19 09:18 Coreg PO 12.5 mg BID [facility] Administration Docusate Sodium 100 mg 06/09/19 22:00 06/12/19 09:17 Colace PO 100 mg BID [facility] Administration Furosemide 40 mg 06/11/19 10:00 06/12/19 10:30 Lasix IV 40 mg DAILY [facility] Administration Heparin Sodium (Porcine) 5,000 unit 06/09/19 22:00 06/12/19 09:18 Heparin SUB-Q 5,000 unit Q12HR [facility] Administration Azithromycin 500 mg/ Sodium 250 mls @ 250 mls/hr 06/10/19 10:00 06/12/19 09:16 Chloride IV 250 mls/hr Q24HR [facility] Administration Protocol Ceftriaxone Sodium 1 gm in 50 mls @ 100 mls/hr 06/10/19 10:00 06/12/19 09:17 Rocephin/Ns 1 Gm/50 Ml IV 100 mls/hr Q24HR [facility] Administration Protocol Insulin Glargine 10 units 06/09/19 22:00 06/11/19 21:51 Lantus SUB-Q Not Given QHS [facility] Insulin Human Regular 0 units 06/09/19 22:00 06/12/19 17:58 Humulin R SUB-Q Not Given ACHS [facility] Protocol Ondansetron HCl 4 mg 06/09/19 18:31 Zofran IV Q8H PRN N/V unrelieved by Stan Pantoprazole Sodium 40 mg 06/10/19 10:00 06/12/19 09:17 Protonix PO 40 mg QAM [facility] Administration Pravastatin Sodium 40 mg 06/09/19 22:00 06/11/19 21:50 Pravachol PO 40 mg HS [facility] Administration
[2019-06-12] MEDS: PRAVASTATIN 40 MG TAB PO SCH (21:56)
[2019-06-12] MEDS: INSULIN GLARGINE 100 UNITS/ML SUB-Q SCH (21:57)
[2019-06-13 06:45] LABS: Hematocrit 38.4 % (30.3-42.9); Hemoglobin 12.6 gm/dl (10.1-14.3); Mean Corpuscular HGB Conc 33 % (30-34); Mean Corpuscular Volume 95 fl (79-97); Platelet Count 220 K/mm3 (140-440); Red Blood Count 4.07 M/mm3 (3.65-5.03); Red Cell Distribution Width 15.4 % (13.2-15.2)
[2019-06-13 07:08] LABS: Calcium 8.6 mg/dL (8.4-10.2)
[2019-06-13 09:39] VITALS: BP 161/74
[2019-06-13] MEDS: INSULIN REGULAR, HUMAN 100 UNITS/1 ML SUB-Q SCH (10:09)
--- NOTE | 2019-06-13 10:53 | Progress Note ---
Assessment and Plan - Patient Problems (1) Chronic kidney disease, stage 4 (severe) Current Visit: No Status: Acute Plan to address problem: Chronic kidney disease secondary to solitary kidney and diabetic nephropathy/hypertensive nephrosclerosis. Kidney function appears better than baseline probably secondary to hemodilution with fluid overload. Stable on diuretics. Follow-up electrolytes and renal function. DC planning per Prjasmin SHAY MD (2) Acute hypoxemic respiratory failure Current Visit: No Status: Acute Plan to address problem: Acute respiratory failure Secondary to acute pulmonary edema and/or pneumonia. Patient getting IV diuretics and antibiotics. Improving. Continue bronchodilator nebulizer treatments and supplemental oxygen. Change to po Diuretics. DC planning per Prjasmin SHAY MD (3) Hypernatremia Current Visit: Yes Status: Acute Plan to address problem: Sodium improved back to normal (4) Acute hyperkalemia Current Visit: No Status: Acute Plan to address problem: Potassium has improved to normal. (5) Type 2 diabetes mellitus with diabetic chronic kidney disease Current Visit: Yes Status: Acute Plan to address problem: Blood sugar management by primary attending (6) Hypertensive chronic kidney disease with stage 1 through stage 4 chronic kidney disease, or unspecified chronic kidney disease Current Visit: Yes Status: Acute Plan to address problem: Follow-up blood pressure on current medications Subjective Date of service: 06/13/19 Principal diagnosis: chronic kidney disease stage IV, Interval history: Patient seen lying in bed. She again feels better today. Shortness of breath improving. at the bedside Objective - Exam Narrative Exam: Elderly -[place] female lying in bed in mild respiratory distress HEENT: NCAT, pink oral mucous membrane Neck: Supple, no venous distention CVS: S1S2 RRR with no murmur, rub or gallop Chest: mildly diminished breath sounds in lower zones Abdomen: Distended, soft, nontender, no organomegaly, bowel sounds are present Extremities: No edema, Genitourinary deferred, Skin warm and dry with no rash Neuro: Awake, alert no focal deficits - Vital Signs Vital signs: Vital Signs - 12hr 06/12/19 06/12/19 06/13/19 23:49 23:50 00:00 Temperature 98.7 F Pulse Rate 69 71 Respiratory 18 Rate Blood Pressure 136/58 O2 Sat by Pulse 97 Oximetry 06/13/19 06/13/19 06/13/19 04:50 04:52 09:19 Temperature 98.8 F 98.4 F Pulse Rate 66 63 Respiratory 18 18 Rate Blood Pressure 159/68 161/74 O2 Sat by Pulse 100 94 Oximetry - Lab 06/13/19 05:51 06/13/19 05:51 Most recent lab results Calcium 8.6 mg/dL (8.4-10.2) 06/13/19 05:51 Medications & Allergies - Medications Allergies/Adverse Reactions: Allergies methadone Adverse Reaction (Verified 08/08/17 20:43) Vomiting tramadol Adverse Reaction (Verified 08/08/17 20:43) Vomiting unknown Allergy (Uncoded 08/08/17 20:43) Unknown PT DOES NOT NAME OR TYPE OF MEDICATION THAT SHE IS ALLERGIC TO. Home Medications: Home Medications Medication Instructions Recorded Confirmed Last Taken Type Pantoprazole Sodium [Protonix] 40 mg PO QAM 01/19/15 11/19/18 06/20/16 History Pravastatin Sodium [Pravachol] 40 mg PO HS #30 tablet 05/22/18 11/19/18 Unknown Rx Furosemide [Lasix TAB] 40 mg PO DAILY 11/19/18 11/19/18 Unknown History L. Acidophilus/Bifid. Animalis 1 each PO DAILY 11/19/18 11/19/18 Unknown History [Dialyvite Chewable Probiotic] amLODIPine 5 mg PO DAILY 11/19/18 11/19/18 Unknown History Insulin Glargine,Hum.rec.anlog 10 units SQ QHS #5 pen 11/24/18 Unknown Rx [Lantus Solostar] Lisinopril [Zestril TAB] 20 mg PO QDAY #30 tablet 11/24/18 Unknown Rx carvediloL [Coreg] 12.5 mg PO BID #60 tablet 11/24/18 Unknown Rx Active Medications: Generic Name Dose Route Start Last Admin Trade Name Freq PRN Reason Stop Dose Admin Acetaminophen 650 mg 06/09/19 18:31 Tylenol PO Q4H PRN Pain MILD(1-3)/Fever >100.5/ALVARADO Albuterol 2.5 mg 06/10/19 01:42 Proventil IH Q4HRT PRN Shortness Of Breath Albuterol/Ipratropium 1 ampul 06/10/19 08:00 06/12/19 21:18 Duoneb *Not For Prn Use* IH 1 ampul TIDRT [facility] Administration Amlodipine Besylate 5 mg 06/10/19 10:00 06/12/19 09:18 Amlodipine PO 5 mg DAILY [facility] Administration Carvedilol 12.5 mg 06/09/19 22:00 06/12/19 21:56 Coreg PO 12.5 mg BID [facility] Administration Docusate Sodium 100 mg 06/09/19 22:00 06/12/19 21:56 Colace PO 100 mg BID [facility] Administration Furosemide 40 mg 06/11/19 10:00 06/12/19 10:30 Lasix IV 40 mg DAILY [facility] Administration Heparin Sodium (Porcine) 5,000 unit 06/09/19 22:00 06/12/19 21:56 Heparin SUB-Q 5,000 unit Q12HR [facility] Administration Azithromycin 500 mg/ Sodium 250 mls @ 250 mls/hr 06/10/19 10:00 06/12/19 09:16 Chloride IV 250 mls/hr Q24HR [facility] Administration Protocol Ceftriaxone Sodium 1 gm in 50 mls @ 100 mls/hr 06/10/19 10:00 06/12/19 09:17 Rocephin/Ns 1 Gm/50 Ml IV 100 mls/hr Q24HR [facility] Administration Protocol Insulin Glargine 10 units 06/09/19 22:00 06/12/19 21:57 Lantus SUB-Q Not Given QHS [facility] Insulin Human Regular 0 units 06/09/19 22:00 06/13/19 10:09 Humulin R SUB-Q Not Given ACHS [facility] Protocol Ondansetron HCl 4 mg 06/09/19 18:31 Zofran IV Q8H PRN N/V unrelieved by Stan Pantoprazole Sodium 40 mg 06/10/19 10:00 06/12/19 09:17 Protonix PO 40 mg QAM [facility] Administration Pravastatin Sodium 40 mg 06/09/19 22:00 06/12/19 21:56 Pravachol PO 40 mg HS [facility] Administration
[2019-06-13] MEDS: FUROSEMIDE 40 MG/4 ML INJ IV SCH (10:58)
[2019-06-13] MEDS: PANTOPRAZOLE 40 MG TAB PO SCH (10:58)
[2019-06-13] MEDS: HEPARIN 5,000 UNIT/1 ML VIAL SUB-Q SCH (10:58)
[2019-06-13] MEDS: carvediloL 12.5 MG TAB PO SCH (10:59)
[2019-06-13] MEDS: amLODIPine 5 MG TAB PO SCH (10:59)
[2019-06-13] MEDS: cefTRIAXone/NS 1 GM/50 ML 1 GM/50 ML BAG IV SCH (11:00)
[2019-06-13] MEDS: AZITHROMYCIN 500 MG in SODIUM CHLORIDE 0.9% 250ML 250 ML IV SCH (11:32)
[2019-06-13] MEDS: IPRATROPIUM/ALBUTEROL SULFATE 3 ML AMPUL.NEB IH SCH ×2 (11:55→15:21)
--- NOTE | 2019-06-13 13:41 | Discharge Summary ---
Providers - Providers Date of Admission: 06/09/19 12:30 Date of discharge: 06/13/19 Attending physician: JOSEMANUEL HAUSER 06/09/19 12:24 Consult to Physician [CONS] Urgent Comment: Consulting Provider: BRAXTON DOUGLAS Physician Instructions: Reason For Exam: renal insufficiency, shortness of breath 06/10/19 08:19 Consult to Physician [CONS] Routine Comment: Consulting Provider: LEANDRA VILLALOBOS Physician Instructions: Reason For Exam: CHF 06/10/19 19:38 Consult to Physician [CONS] Routine Comment: Consulting Provider: EVANGELISTA FOREMAN Physician Instructions: Reason For Exam: severe pulmonary hypertension Primary care physician: JOSEMANUEL HAUSER Hospitalization Condition: Fair Disposition: DC-30 STILL A PATIENT Core Measure Documentation - Palliative Care Palliative Care/ Comfort Measures: Not Applicable - Core Measures Any of the following diagnoses?: none Exam - Constitutional Vitals: Temp Pulse Resp BP Pulse Ox 98.4 F 63 18 161/74 94 06/13/19 09:19 06/13/19 10:59 06/13/19 09:19 06/13/19 10:59 06/13/19 09:19 Plan Follow up with: PRIMARY CARE, [Referring] - 3-5 Days Prescriptions: amLODIPine 5 mg PO DAILY #30 Azithromycin 500 mg PO DAILY #7 tablet carvediloL [Coreg] 12.5 mg PO BID #60 tablet Ipratropium/Albuterol Sulfate [DUONEB *Not for PRN Use*] 1 ampul IH TIDRT #10 ampul.neb Insulin Glargine [Lantus VIAL] 10 units SUB-Q QHS #1 units
== END 2019-06-13 15:00 | disposition home health service (06) | DRG 291 ==
LOC: ED 09:39 → 4A 12:30
PROVIDERS: ADMIT Internal Medicine; ATTEND Internal Medicine
DX: I13.2 Hypertensive heart and chronic kidney disease with heart failure and with stage 5 chronic kidney disease, or end stage renal disease (principal); I50.33 Acute on chronic diastolic (congestive) heart failure; J96.01 Acute respiratory failure with hypoxia; J18.1 Lobar pneumonia, unspecified organism; N18.6 End stage renal disease; E87.0 Hyperosmolality and hypernatremia; N17.9 Acute kidney failure, unspecified; E11.21 Type 2 diabetes mellitus with diabetic nephropathy; E87.5 Hyperkalemia; E11.22 Type 2 diabetes mellitus with diabetic chronic kidney disease; I27.20 Pulmonary hypertension, unspecified; F03.90 Unspecified dementia, unspecified severity, without behavioral disturbance, psychotic disturbance, mood disturbance, and anxiety; Z99.2 Dependence on renal dialysis; Z90.710 Acquired absence of both cervix and uterus; Z83.3 Family history of diabetes mellitus; Z82.49 Family history of ischemic heart disease and other diseases of the circulatory system; Z79.899 Other long term (current) drug therapy; Z79.4 Long term (current) use of insulin
CPT/HCPCS: 36415; 71045; 78582; 80048; 80053; 80074; 81001; 82550; 82553; 82962; 83880; 84484; 85007; 85025; 85027; 85610; 87040; 90686; 93005; 93010; 93306; 94640; 96360; G0378; A9270-GY; A9540; A9558; J0456; J0696; J1644; J1815; J1940; J7050

== ENCOUNTER 2019-11-02 11:49 | Observation (INO) | payer MEDICARE ==
[2019-11-02] MEDS ORDERED: SODIUM CHLORIDE 0.9% 1000 ML 1,000 ML IV ONE (13:03)
--- NOTE | 2019-11-02 13:03 | Emergency Department Report ---
ED Altered Mental Status HPI - General Chief Complaint: Altered Mental Status Stated Complaint: DIALYSIS TREATMENT Time Seen by Provider: 11/02/19 12:51 Source: family Mode of arrival: Wheelchair Limitations: Physical Limitation - History of Present Illness Initial Comments: Patient is 78 years old female with history of end-stage renal disease, current ly not on dialysis according to patient daughter report. Patient also have history of hypertension and congestive heart failure. Patient brought to the emergency room by her daughter stating that she has been confused for the last week. She denied any fever or chills. She admitted that she is having frequent urination. Patient denied any chest pain, nausea or vomiting. In the ER patient is alert but confused. Patient is not oriented to time place and person. Patient is moving all her extremities with no focal weakness observed. MD Complaint: altered mental status, confusion -: week(s) (1) Severity: moderate Consistency of Symptoms: waxing and waning - Related Data Home Medications Medication Instructions Recorded Confirmed Last Taken Pantoprazole Sodium [Protonix] 40 mg PO QAM 01/19/15 11/19/18 06/20/16 Furosemide [Lasix TAB] 40 mg PO DAILY 11/19/18 11/19/18 Unknown L. Acidophilus/Bifid. Animalis 1 each PO DAILY 11/19/18 11/19/18 Unknown [Dialyvite Chewable Probiotic] Previous Rx's Medication Instructions Recorded Last Taken Type Pravastatin Sodium [Pravachol] 40 mg PO HS #30 tablet 05/22/18 Unknown Rx Insulin Glargine,Hum.rec.anlog 10 units SQ QHS #5 pen 11/24/18 Unknown Rx [Lantus Solostar] lisinopriL [Zestril TAB] 20 mg PO QDAY #30 tablet 11/24/18 Unknown Rx Azithromycin 500 mg PO DAILY #7 tablet 06/13/19 Unknown Rx Docusate Sodium [Colace CAP] 100 mg PO BID capsule 06/13/19 Unknown Rx Insulin Glargine [Lantus VIAL] 10 units SUB-Q QHS #1 units 06/13/19 Unknown Rx Ipratropium/Albuterol Sulfate 1 ampul IH TIDRT #10 ampul.neb 06/13/19 Unknown Rx [DUONEB *Not for PRN Use*] amLODIPine 5 mg PO DAILY #30 06/13/19 Unknown Rx carvediloL [Coreg] 12.5 mg PO BID #60 tablet 06/13/19 Unknown Rx Allergies Allergy/AdvReac Type Severity Reaction Status Date / Time methadone AdvReac Vomiting Verified 08/08/17 20:43 tramadol AdvReac Vomiting Verified 08/08/17 20:43 unknown Allergy Unknown Uncoded 08/08/17 20:43 ED Review of Systems ROS: Stated complaint: DIALYSIS TREATMENT Other details as noted in HPI Comment: All other systems reviewed and negative Constitutional: denies: chills, fever Respiratory: denies: cough, shortness of breath Gastrointestinal: denies: abdominal pain, nausea Musculoskeletal: denies: back pain Neurological: confusion. denies: headache ED Past Medical Hx - Past Medical History Hx Hypertension: Yes Hx Heart Attack/AMI: No Hx Congestive Heart Failure: Yes Hx Diabetes: Yes Hx Deep Vein Thrombosis: No Hx Pulmonary Embolism: No Hx Liver Disease: No Hx Renal Disease: Yes (M,W,F) Hx Sickle Cell Disease: No Hx Arthritis: No Hx Seizures: No Hx Kidney Stones: No Hx Asthma: No Hx COPD: No Hx Tuberculosis: No Hx Dementia: No Hx HIV: No - Surgical History Hx Coronary Stent: No Hx Pacemaker: No Hx Internal Defibrillator: No Additional Surgical History: L kidney removed, Back surgery, Hysterectomy. fistula to LUE - Social History Smoking Status: Never Smoker - Medications Home Medications: Home Medications Medication Instructions Recorded Confirmed Last Taken Type Pantoprazole Sodium [Protonix] 40 mg PO QAM 01/19/15 11/19/18 06/20/16 History Pravastatin Sodium [Pravachol] 40 mg PO HS #30 tablet 05/22/18 11/19/18 Unknown Rx Furosemide [Lasix TAB] 40 mg PO DAILY 11/19/18 11/19/18 Unknown History L. Acidophilus/Bifid. Animalis 1 each PO DAILY 11/19/18 11/19/18 Unknown History [Dialyvite Chewable Probiotic] Insulin Glargine,Hum.rec.anlog 10 units SQ QHS #5 pen 11/24/18 Unknown Rx [Lantus Solostar] lisinopriL [Zestril TAB] 20 mg PO QDAY #30 tablet 11/24/18 Unknown Rx Azithromycin 500 mg PO DAILY #7 tablet 06/13/19 Unknown Rx Docusate Sodium [Colace CAP] 100 mg PO BID capsule 06/13/19 Unknown Rx Insulin Glargine [Lantus VIAL] 10 units SUB-Q QHS #1 units 06/13/19 Unknown Rx Ipratropium/Albuterol Sulfate 1 ampul IH TIDRT #10 ampul.neb 06/13/19 Unknown Rx [DUONEB *Not for PRN Use*] amLODIPine 5 mg PO DAILY #30 06/13/19 Unknown Rx carvediloL [Coreg] 12.5 mg PO BID #60 tablet 06/13/19 Unknown Rx ED Physical Exam - General Limitations: Physical Limitation General appearance: alert - Head Head exam: Present: atraumatic, normocephalic, normal inspection - Eye Eye exam: Present: normal appearance - ENT ENT exam: Present: mucous membranes dry - Neck Neck exam: Present: normal inspection, full ROM. Absent: tenderness, m eningismus, lymphadenopathy, thyromegaly - Respiratory Respiratory exam: Present: normal lung sounds bilaterally - Cardiovascular Cardiovascular Exam: Present: regular rate, normal rhythm, normal heart sounds - GI/Abdominal GI/Abdominal exam: Present: soft, normal bowel sounds. Absent: distended, tenderness, guarding, rebound, rigid, organomegaly, mass, bruit, pulsatile mass, hernia - Extremities Exam Extremities exam: Present: normal inspection, full ROM, normal capillary refill - Back Exam Back exam: Present: normal inspection, full ROM. Absent: CVA tenderness (R), CVA tenderness (L) - Neurological Exam Neurological exam: Present: alert, altered - Psychiatric Psychiatric exam: Present: normal mood - Skin Skin exam: Present: warm, dry, intact - Assessment Assessment Interval: Baseline - Level of Consciousness 1a. Level of Consciousness: alert/keenly responsive - LOC Questions 1b. LOC Questions: answers no questions correctly - LOC Command 1c. LOC Commands: performs tasks correctly - Best Gaze 2. Best Gaze: normal - Visual 3. Visual: no visual loss - Facial Palsy 4. Facial Palsy: normal symmetrical movement - Motor Arm 5a. Motor Arm Left: no drift 5b. Motor Arm Right: no drift - Motor Leg 6a. Motor Leg Left: no drift 6b. Motor Leg Right: no drift - Limb Ataxia 7. Limb Ataxia: absent - Sensory 8. Sensory: normal - Best Language 9. Best Language: no aphasia - Dysarthria 10. Dysarthria: normal - Extinction and Inattention 11. Extinction/Inattention: no abnormality - Scoring Total Score: 2 Stroke Severity: Minor Stroke ED Course Vital Signs 11/02/19 11/02/19 11/02/19 11:59 13:07 13:15 Temperature 98.5 F Pulse Rate 84 83 Respiratory 20 23 Rate Blood Pressure 99/61 163/66 O2 Sat by Pulse 95 92 94 Oximetry 11/02/19 11/02/19 11/02/19 13:31 19:43 19:45 Temperature Pulse Rate 86 91 H 87 Respiratory 21 21 15 Rate Blood Pressure 161/66 161/66 164/127 O2 Sat by Pulse 93 89 Oximetry 11/02/19 11/02/19 11/02/19 20:01 20:15 20:31 Temperature Pulse Rate 92 H 95 H 86 Respiratory 22 19 20 Rate Blood Pressure 112/92 112/92 112/92 O2 Sat by Pulse 97 100 97 Oximetry 11/02/19 11/02/19 11/02/19 20:45 21:01 21:15 Temperature Pulse Rate 102 H 94 H 75 Respiratory 14 22 18 Rate Blood Pressure 112/92 156/81 156/81 O2 Sat by Pulse 93 95 98 Oximetry 11/02/19 11/02/19 11/02/19 21:31 21:45 22:01 Temperature Pulse Rate 89 85 98 H Respiratory 20 22 22 Rate Blood Pressure 156/81 156/81 156/81 O2 Sat by Pulse 98 99 98 Oximetry 11/02/19 11/02/19 11/02/19 22:15 22:31 22:45 Temperature Pulse Rate 91 H 81 91 H Respiratory 17 19 24 Rate Blood Pressure 156/81 156/81 156/81 O2 Sat by Pulse 98 99 96 Oximetry 11/02/19 11/02/19 11/02/19 23:01 23:15 23:21 Temperature Pulse Rate 104 H 84 83 Respiratory 36 H 20 18 Rate Blood Pressure 156/81 168/87 168/87 O2 Sat by Pulse 89 100 100 Oximetry 11/02/19 11/02/19 11/02/19 23:31 23:37 23:45 Temperature Pulse Rate 86 83 82 Respiratory 15 20 21 Rate Blood Pressure 168/87 168/87 168/87 O2 Sat by Pulse 100 100 100 Oximetry 11/03/19 11/03/19 11/03/19 00:01 00:15 00:31 Temperature Pulse Rate 88 83 82 Respiratory 23 23 20 Rate Blood Pressure 162/67 162/67 162/67 O2 Sat by Pulse 100 100 100 Oximetry 11/03/19 11/03/19 11/03/19 00:45 00:51 01:01 Temperature Pulse Rate 93 H Respiratory 28 H Rate Blood Pressure 162/67 162/67 179/129 O2 Sat by Pulse 99 98 95 Oximetry 11/03/19 11/03/19 11/03/19 01:11 01:21 01:31 Temperature Pulse Rate 84 82 85 Respiratory 17 19 22 Rate Blood Pressure 179/129 179/129 179/129 O2 Sat by Pulse 97 97 98 Oximetry 11/03/19 11/03/19 01:41 01:51 Temperature Pulse Rate 89 90 Respiratory 22 19 Rate Blood Pressure 179/129 179/129 O2 Sat by Pulse 95 97 Oximetry - Lab Data Result diagrams: 11/04/19 03:36 11/04/19 03:36 Lab Results 11/02/19 11/02/19 11/02/19 Range/Units 14:10 14:10 14:10 WBC (4.5-11.0) K/mm3 RBC (3.65-5.03) M/mm3 Hgb (10.1-14.3) gm/dl Hct (30.3-42.9) % MCV (79-97) fl MCH (28-32) pg MCHC (30-34) % RDW (13.2-15.2) % Plt Count (140-440) K/mm3 Add Manual Diff Total Counted Seg Neuts % (Manual) (40.0-70.0) % Band Neutrophils % % Lymphocytes % (Manual) (13.4-35.0) % Reactive Lymphs % (Man) % Monocytes % (Manual) (0.0-7.3) % Eosinophils % (Manual) (0.0-4.3) % Basophils % (Manual) (0.0-1.8) % Metamyelocytes % % Myelocytes % % Promyelocytes % % Blast Cells % % Nucleated RBC % Seg Neutrophils # Man (1.8-7.7) K/mm3 Band Neutrophils # K/mm3 Lymphocytes # (Manual) (1.2-5.4) K/mm3 Abs React Lymphs (Man) K/mm3 Monocytes # (Manual) (0.0-0.8) K/mm3 Eosinophils # (Manual) (0.0-0.4) K/mm3 Basophils # (Manual) (0.0-0.1) K/mm3 Metamyelocytes # K/mm3 Myelocytes # K/mm3 Promyelocytes # K/mm3 Blast Cells # K/mm3 WBC Morphology Hypersegmented Neuts Hyposegmented Neuts Hypogranular Neuts Smudge Cells Toxic Granulation Toxic Vacuolation Dohle Bodies Pelger-Huet Anomaly Anastasiya Rods Platelet Estimate Clumped Platelets Plt Clumps, EDTA Large Platelets Giant Platelets Platelet Satelliting Plt Morphology Comment RBC Morphology Dimorphic RBCs Polychromasia Hypochromasia Poikilocytosis Anisocytosis Microcytosis Macrocytosis Spherocytes Pappenheimer Bodies Sickle Cells Target Cells Tear Drop Cells Ovalocytes Helmet Cells Cornelius-[place] Bodies [place] Rings Prosser Cells Bite Cells Crenated Cell Elliptocytes Acanthocytes (Spur) Rouleaux Hemoglobin C Crystals Schistocytes Malaria parasites Remberto Bodies Hem Pathologist Commnt PT 16.3 H (12.2-14.9) Sec. INR 1.29 H (0.87-1.13) APTT 30.5 (24.2-36.6) Sec. Sodium (137-145) mmol/L Potassium (3.6-5.0) mmol/L Chloride (98-107) mmol/L Carbon Dioxide (22-30) mmol/L Anion Gap mmol/L BUN (7-17) mg/dL Creatinine (0.7-1.2) mg/dL Estimated GFR ml/min BUN/Creatinine Ratio % Glucose (65-100) mg/dL Lactic Acid 1.10 (0.7-2.0) mmol/L Calcium (8.4-10.2) mg/dL Total Bilirubin (0.1-1.2) mg/dL Direct Bilirubin (0-0.2) mg/dL Indirect Bilirubin mg/dL AST (5-40) units/L ALT (7-56) units/L Alkaline Phosphatase (35-129) units/L Ammonia (25-60) umol/L Total Creatine Kinase (30-135) units/L Troponin T < 0.010 (0.00-0.029) ng/mL Total Protein (6.3-8.2) g/dL Albumin (3.9-5) g/dL Albumin/Globulin Ratio % TSH (0.270-4.200) mlU/mL 11/02/19 11/02/19 11/02/19 Range/Units 14:10 14:10 14:10 WBC (4.5-11.0) K/mm3 RBC (3.65-5.03) M/mm3 Hgb (10.1-14.3) gm/dl Hct (30.3-42.9) % MCV (79-97) fl MCH (28-32) pg MCHC (30-34) % RDW (13.2-15.2) % Plt Count (140-440) K/mm3 Add Manual Diff Total Counted Seg Neuts % (Manual) (40.0-70.0) % Band Neutrophils % % Lymphocytes % (Manual) (13.4-35.0) % Reactive Lymphs % (Man) % Monocytes % (Manual) (0.0-7.3) % Eosinophils % (Manual) (0.0-4.3) % Basophils % (Manual) (0.0-1.8) % Metamyelocytes % % Myelocytes % % Promyelocytes % % Blast Cells % % Nucleated RBC % Seg Neutrophils # Man (1.8-7.7) K/mm3 Band Neutrophils # K/mm3 Lymphocytes # (Manual) (1.2-5.4) K/mm3 Abs React Lymphs (Man) K/mm3 Monocytes # (Manual) (0.0-0.8) K/mm3 Eosinophils # (Manual) (0.0-0.4) K/mm3 Basophils # (Manual) (0.0-0.1) K/mm3 Metamyelocytes # K/mm3 Myelocytes # K/mm3 Promyelocytes # K/mm3 Blast Cells # K/mm3 WBC Morphology Hypersegmented Neuts Hyposegmented Neuts Hypogranular Neuts Smudge Cells Toxic Granulation Toxic Vacuolation Dohle Bodies Pelger-Huet Anomaly Anastasiya Rods Platelet Estimate Clumped Platelets Plt Clumps, EDTA Large Platelets Giant Platelets Platelet Satelliting Plt Morphology Comment RBC Morphology Dimorphic RBCs Polychromasia Hypochromasia Poikilocytosis Anisocytosis Microcytosis Macrocytosis Spherocytes Pappenheimer Bodies Sickle Cells Target Cells Tear Drop Cells Ovalocytes Helmet Cells Cornelius-[place] Bodies [place] Rings Prosser Cells Bite Cells Crenated Cell Elliptocytes Acanthocytes (Spur) Rouleaux Hemoglobin C Crystals Schistocytes Malaria parasites Remberto Bodies Hem Pathologist Commnt PT (12.2-14.9) Sec. INR (0.87-1.13) APTT (24.2-36.6) Sec. Sodium (137-145) mmol/L Potassium (3.6-5.0) mmol/L Chloride (98-107) mmol/L Carbon Dioxide (22-30) mmol/L Anion Gap mmol/L BUN (7-17) mg/dL Creatinine (0.7-1.2) mg/dL Estimated GFR ml/min BUN/Creatinine Ratio % Glucose (65-100) mg/dL Lactic Acid (0.7-2.0) mmol/L Calcium (8.4-10.2) mg/dL Total Bilirubin 0.80 (0.1-1.2) mg/dL Direct Bilirubin 0.2 (0-0.2) mg/dL Indirect Bilirubin 0.6 mg/dL AST 40 (5-40) units/L ALT 70 H (7-56) units/L Alkaline Phosphatase 214 H (35-129) units/L Ammonia 35.0 (25-60) umol/L Total Creatine Kinase 168 H (30-135) units/L Troponin T < 0.010 (0.00-0.029) ng/mL Total Protein 7.6 (6.3-8.2) g/dL Albumin 4.0 (3.9-5) g/dL Albumin/Globulin Ratio 1.1 % TSH (0.270-4.200) mlU/mL 11/02/19 11/02/19 11/02/19 Range/Units 14:10 15:08 15:44 WBC 4.5 (4.5-11.0) K/mm3 RBC 3.83 (3.65-5.03) M/mm3 Hgb 12.1 (10.1-14.3) gm/dl Hct 37.2 (30.3-42.9) % MCV 97 (79-97) fl MCH 32 (28-32) pg MCHC 33 (30-34) % RDW 17.5 H (13.2-15.2) % Plt Count 214 (140-440) K/mm3 Add Manual Diff Complete Total Counted 100 Seg Neuts % (Manual) 69.0 (40.0-70.0) % Band Neutrophils % 0 % Lymphocytes % (Manual) 19.0 (13.4-35.0) % Reactive Lymphs % (Man) 0 % Monocytes % (Manual) 5.0 (0.0-7.3) % Eosinophils % (Manual) 5.0 H (0.0-4.3) % Basophils % (Manual) 2.0 H (0.0-1.8) % Metamyelocytes % 0 % Myelocytes % 0 % Promyelocytes % 0 % Blast Cells % 0 % Nucleated RBC % Not Reportable Seg Neutrophils # Man 3.1 (1.8-7.7) K/mm3 Band Neutrophils # 0.0 K/mm3 Lymphocytes # (Manual) 0.9 L (1.2-5.4) K/mm3 Abs React Lymphs (Man) 0.0 K/mm3 Monocytes # (Manual) 0.2 (0.0-0.8) K/mm3 Eosinophils # (Manual) 0.2 (0.0-0.4) K/mm3 Basophils # (Manual) 0.1 (0.0-0.1) K/mm3 Metamyelocytes # 0.0 K/mm3 Myelocytes # 0.0 K/mm3 Promyelocytes # 0.0 K/mm3 Blast Cells # 0.0 K/mm3 WBC Morphology Not Reportable Hypersegmented Neuts Not Reportable Hyposegmented Neuts Not Reportable Hypogranular Neuts Not Reportable Smudge Cells Not Reportable Toxic Granulation Not Reportable Toxic Vacuolation Not Reportable Dohle Bodies Not Reportable Pelger-Huet Anomaly Not Reportable Anastasiya Rods Not Reportable Platelet Estimate Not Reportable Clumped Platelets Not Reportable Plt Clumps, EDTA Not Reportable Large Platelets Not Reportable Giant Platelets Not Reportable Platelet Satelliting Not Reportable Plt Morphology Comment Not Reportable RBC Morphology Normal Dimorphic RBCs Not Reportable Polychromasia Not Reportable Hypochromasia Not Reportable Poikilocytosis Not Reportable Anisocytosis Not Reportable Microcytosis Not Reportable Macrocytosis Not Reportable Spherocytes Not Reportable Pappenheimer Bodies Not Reportable Sickle Cells Not Reportable Target Cells Not Reportable Tear Drop Cells Not Reportable Ovalocytes Not Reportable Helmet Cells Not Reportable Cornelius-[place] Bodies Not Reportable [place] Rings Not Reportable Prosser Cells Not Reportable Bite Cells Not Reportable Crenated Cell Not Reportable Elliptocytes Not Reportable Acanthocytes (Spur) Not Reportable Rouleaux Not Reportable Hemoglobin C Crystals Not Reportable Schistocytes Not Reportable Malaria parasites Not Reportable Remberto Bodies Not Reportable Hem Pathologist Commnt No PT (12.2-14.9) Sec. INR (0.87-1.13) APTT (24.2-36.6) Sec. Sodium 141 (137-145) mmol/L Potassium 4.2 (3.6-5.0) mmol/L Chloride 109.3 H (98-107) mmol/L Carbon Dioxide 15 L (22-30) mmol/L Anion Gap 21 mmol/L BUN 26 H (7-17) mg/dL Creatinine 1.9 H (0.7-1.2) mg/dL Estimated GFR 31 ml/min BUN/Creatinine Ratio 14 % Glucose 168 H (65-100) mg/dL Lactic Acid (0.7-2.0) mmol/L Calcium 9.0 (8.4-10.2) mg/dL Total Bilirubin (0.1-1.2) mg/dL Direct Bilirubin (0-0.2) mg/dL Indirect Bilirubin mg/dL AST (5-40) units/L ALT (7-56) units/L Alkaline Phosphatase (35-129) units/L Ammonia (25-60) umol/L Total Creatine Kinase (30-135) units/L Troponin T (0.00-0.029) ng/mL Total Protein (6.3-8.2) g/dL Albumin (3.9-5) g/dL Albumin/Globulin Ratio % TSH 1.720 (0.270-4.200) mlU/mL - EKG Data -: EKG Interpreted by Ga EKG shows normal: sinus rhythm Rate: normal Interpretation: no acute changes - Radiology Data Radiology results: report reviewed - Medical Decision Making Patient is 78 years old female with history of end-stage renal disease, currently not on dialysis according to patient daughter report. Patient also have history of hypertension and congestive heart failure. Patient brought to the emergency room by her daughter stating that she has been confused for the last week. She denied any fever or chills. She admitted that she is having frequent urination. Patient denied any chest pain, nausea or vomiting. In the ER patient is alert but confused. Patient is not oriented to time place and person. Patient is moving all her extremities with no focal weakness observed. I discussed the patient with Dr. Botello, he agreed to admit the patient to medical service for further management. Critical Care Time: Yes Critical care time in (mins) excluding proc time.: 30 Critical care attestation.: If time is entered above; I have spent that time in minutes in the direct care of this critically ill patient, excluding procedure time. ED Disposition Clinical Impression: Confusion Altered mental status Qualifiers: Altered mental status type: unspecified Qualified Code(s): R41.82 - Altered mental status, unspecified Disposition: [id number] OP ADMIT IP TO THIS HOSP Is pt being admited?: Yes Condition: Stable
--- NOTE | 2019-11-02 14:00 | XRay Report ---
CHEST 1 VIEW INDICATION: Altered Mental Status /pneumonia. COMPARISON: 06/09/2019 FINDINGS: Support devices: None. Heart: Borderline to mild cardiomegaly has decreased since the previous exam. Lungs/Pleura: No acute air space or interstitial disease. Pulmonary venous congestion and trace pleur al effusions have resolved since the previous exam. Additional findings: None. IMPRESSION: No acute findings. Signer Name: Leandro Calvo Jr, MD Signed: 11/02/2019 1:56 PM Workstation Name: [email or web address]
[2019-11-02 14:54] LABS: INR 1.29 (0.87-1.13)
[2019-11-02 14:55] LABS: Partial Thromboplastin Time 30.5 Sec. (24.2-36.6)
[2019-11-02 15:07] LABS: Bilirubin,Direct 0.2 mg/dL (0-0.2)
--- NOTE | 2019-11-02 15:21 | Cat Scan Report ---
CT head/brain wo con INDICATION / CLINICAL INFORMATION: 78 years Female; AMS. TECHNIQUE: Routine CT head without contrast. All CT scans at this location are performed using CT dos e reduction for ALARA by means of automated exposure control. Motion artifact. Suboptimal positioning . COMPARISON: 11/19/2018 FINDINGS: BRAIN / INTRACRANIAL CONTENTS: No acute hemorrhage, mass effect, midline shift, hydrocephalus, or acu te, large territorial infarct. Minimal cerebral and cerebellar atrophy. There are minimal areas of decreased attenuation in the white matter of the cerebral hemispheres. The se are nonspecific findings and may be related to microangiopathy (hypertension, diabetes, atheroscle rosis), given the patient's age. It might be difficult to evaluate for small areas of ischemia withou t diffusion imaging by MRI. CRANIOCERVICAL JUNCTION: No significant abnormality. ORBITS: No significant abnormality of visualized orbits. SINUSES / MASTOIDS: There is moderate opacification of the left maxillary antrum with high attenuatio n material, most likely related to chronic sinus disease or perhaps a fungal/hemorrhagic component of sinus disease. Similar type findings seen on prior. ADDITIONAL FINDINGS: Atherosclerotic disease is seen in the anterior and posterior circulation. IMPRESSION: 1. No focal mass, hemorrhage, hydrocephalus, or acute, large territorial infarct. 2. Sinus disease noted. Signer Name: Tae De La Cruz MD, III Signed: 11/02/2019 3:17 PM Workstation Name: [id number]
[2019-11-02 15:36] LABS: Hematocrit 37.2 % (30.3-42.9); Hemoglobin 12.1 gm/dl (10.1-14.3); Mean Corpuscular HGB Conc 33 % (30-34); Mean Corpuscular Volume 97 fl (79-97); Platelet Count 214 K/mm3 (140-440); Red Blood Count 3.83 M/mm3 (3.65-5.03); Red Cell Distribution Width 17.5 % (13.2-15.2)
--- NOTE | 2019-11-02 15:37 | Cat Scan Report ---
CT ABDOMEN AND PELVIS WITHOUT CONTRAST HISTORY: ABDOMINAL PAIN COMPARISON: 05/20/2018 TECHNIQUE: Axial CT images were obtained through the abdomen and pelvis without IV contrast. Sagittal and coronal reformatted images. All CT scans at this location are performed using CT dose reduction for ALARA by means of automated exposure control. FINDINGS: Comment: Many of the images are limited secondary to patient motion breathing artifact. CT ABDOMEN: Lung Bases: Trace bilateral pleural effusions and pericardial effusion are identified. Heart size suzy ears normal. The visualized lung bases are adequately aerated. Liver: No significant abnormality. Biliary: Multiple large gallstones are identified with the largest measuring up to centimeters in the fundus. No CT findings to suggest acute cholecystitis. The common bile duct appears normal caliber. Spleen: No significant abnormality. Unenlarged. Pancreas: No significant abnormality. Adrenals: No significant abnormality. Kidneys: Severely atrophic left kidney. There is mild compensatory enlargement of the right kidney wi th mild perinephric stranding. No focal renal lesion is appreciated. Lymphatics: No lymphadenopathy. Vasculature: Mild diffuse aortic calcifications. No aneurysm. Bowel/Peritoneum: No significant abnormality. No free air. No free fluid. Normal appendix. CT PELVIS: : No significant abnormality. Osseous Structures: Moderate thoracolumbar spondylosis. Additional Findings: None IMPRESSION: Trace pleural effusions and pericardial effusion. Mild right perinephric stranding is again seen of uncertain significance. Correlate for renal symptom s. No obstructive uropathy is identified. Cholelithiasis. No acute inflammatory process is identified. Signer Name: Leandro Calvo Jr, MD Signed: 11/02/2019 3:33 PM Workstation Name: [id number]
[2019-11-02 18:12] LABS: RBC Morphology Normal; Total Cells Counted 100
[2019-11-03] MEDS ORDERED: ACETAMINOPHEN 325 MG TAB PO PRN (00:11)
[2019-11-03] MEDS ORDERED: oxyCODONE /ACETAMINOPHEN 5-325MG TAB PO PRN (00:11)
[2019-11-03] MEDS ORDERED: HYDROmorphone 1 MG/1 ML INJ IV PRN (00:11)
[2019-11-03] MEDS ORDERED: ONDANSETRON 4 MG/2 ML INJ IV PRN (00:11)
[2019-11-03] MEDS ORDERED: SODIUM CHLORIDE 0.9% 1000 ML 1,000 ML IV SCH (00:15)
[2019-11-03] MEDS ORDERED: INSULIN LISPRO 100 UNIT/ML SUB-Q ONE ×2 (00:26→00:56)
[2019-11-03 01:31] LABS: Bilirubin,Urine NEG (Negative); Blood,Urine SM (Negative); Color,Urine Straw (Yellow); Hyaline Casts,Urine 1 /LPF; Urobilinogen,Urine < 2.0 mg/dL (<2.0)
--- NOTE | 2019-11-03 07:02 | Event Note ---
Date: 11/02/19 See H/p in reports Uncontrolled DM PORSHA
--- NOTE | 2019-11-03 08:01 | History and Physical Report ---
CHIEF COMPLAINT: Altered mental status for 1 ____. HISTORY OF PRESENT ILLNESS: This is a 78-year-old female who presents with chronic kidney disease, not on dialysis; brought into the Emergency Room by the daughter for being confused for the last 1 week. No fever or chills. ____ frequent urination. No chest pain. No shortness of breath. In the Emergency Room, the patient is alert, but confused. The patient is not oriented to time, place and person. No focal weaknesses. PAST MEDICAL HISTORY: Significant for insulin-dependent diabetes, hypertension and hyperlipidemia. PAST SURGICAL HISTORY: Left kidney removed, back surgery, hysterectomy, fistula to the left upper extremity. SOCIAL HISTORY: Does not smoke. FAMILY HISTORY: Hypertension. CURRENT MEDICATIONS: On the chart including Lantus 10 units subcutaneously at bedtime, also Lasix 40 mg p.o. at bedtime. REVIEW OF SYSTEMS: Significant for altered sensorium and decreased alertness for the last 1 week. In the ER the patient was alert, but not oriented to time, place and person. PHYSICAL EXAMINATION: VITAL SIGNS: Blood pressure was 172/129; initial blood pressure was 99/61 and went up to 163/66; temperature 98.5, respiratory rate is 20, pulse rate is 84; O2 sats were 95%, dropped down to 92%. HEENT: Unremarkable. Pupils are equal and reactive. NECK: Supple. No lymphadenopathy, no thyromegaly. LUNGS: Clear to auscultation and percussion. Good air entry. CARDIOVASCULAR SYSTEM: S1, S2 heard. No gallop, no murmur, no rub. Apical impulse in the left fifth intercostal space, midclavicular line. ABDOMEN: Soft and benign. Bowel sounds are normal. EXTREMITIES: Good pedal pulses. No pedal edema. CENTRAL NERVOUS SYSTEM: Alert, but oriented to time, place and person. SKIN: Normal. IMAGING STUDIES: CT abdomen and CT pelvis; trace pleural effusions and pericardial effusion, mild right perinephric stranding of uncertain significance. lower obstructive uropathy. No active inflammatory process was identified. Chest x-ray shows bilaterally no acute findings. Head CT with no acute findings; no focal mass, hemorrhage, hydrocephalus or acute large territorial infarct. EKG reviewed. LABORATORY DATA: Significant for normal CBC and creatinine kinase of 168 and troponin being normal. BUN and creatinine is 26 and 1.9. Hemoglobin A1c is 8.7 and glucose is 256. ALT is slightly high at 70. ASSESSMENT AND PLAN: 1. Acute encephalopathy. The patient has been confused and not oriented to time, place and person for the last 1 week. The patient may have acute frontal stroke. MRI of the brain ordered to rule out frontal stroke. Neurology consult requested. 2. Uncontrolled diabetes. Insulin coverage and insulin initiated. 3. Chronic kidney disease. The patient is not on hemodialysis. Creatinine is 1.9, which may be at baseline. We will get a Nephrology consult. 4. Hypertension. Continue Coreg and amlodipine. We will hold the lisinopril because of the statin. 5. Insulin-dependent diabetes. Continue Lantus and coverage. 6. Congestive heart failure. We will hold the Lasix for the time being because of the creatinine of 1.9. She will be continued on DuoNeb. 7. Gastroesophageal reflux disease. Continue Protonix. 8. Hyperlipidemia. Continue pravastatin. 9. Deep venous thrombosis prophylaxis, heparin 5000 q. 12. In summary, the patient has acute encephalopathy which may be because of a frontal stroke; the patient is alert but not oriented to time, place and person; and uncontrolled diabetes and hypertension. JOB# [id number] XU/SIMÓN HAWK
[2019-11-03] MEDS: IPRATROPIUM/ALBUTEROL SULFATE 3 ML AMPUL.NEB IH SCH ×3 (08:08→21:38)
[2019-11-03] MEDS: amLODIPine 5 MG TAB PO SCH (10:53)
[2019-11-03] MEDS: DOCUSATE SODIUM 100 MG CAP PO SCH ×2 (10:53→21:50)
--- NOTE | 2019-11-03 10:53 | Consultation ---
History of Present Illness Reason for Consult: Progressive confusion Chief complaint: Progressive confusion History of present illness: Patient is 78 years old female with history of end-stage renal disease, currently not on dialysis.The patient was admitted because it was reported by her daughter that she has been more confused than usual. She admitted that she is having frequent urination. Patient denied any chest pain, nausea or vomiting. Home Medications Medication Instructions Recorded Confirmed Last Taken Pantoprazole Sodium [Protonix] 40 mg PO QAM 01/19/15 11/19/18 06/20/16 Furosemide [Lasix TAB] 40 mg PO DAILY 11/19/18 11/19/18 Unknown L. Acidophilus/Bifid. Animalis 1 each PO DAILY 11/19/18 11/19/18 Unknown [Dialyvite Chewable Probiotic] Previous Rx's Medication Instructions Recorded Last Taken Type Pravastatin Sodium [Pravachol] 40 mg PO HS #30 tablet 05/22/18 Unknown Rx Insulin Glargine,Hum.rec.anlog 10 units SQ QHS #5 pen 11/24/18 Unknown Rx [Lantus Solostar] lisinopriL [Zestril TAB] 20 mg PO QDAY #30 tablet 11/24/18 Unknown Rx Azithromycin 500 mg PO DAILY #7 tablet 06/13/19 Unknown Rx Docusate Sodium [Colace CAP] 100 mg PO BID capsule 06/13/19 Unknown Rx Insulin Glargine [Lantus VIAL] 10 units SUB-Q QHS #1 units 06/13/19 Unknown Rx Ipratropium/Albuterol Sulfate 1 ampul IH TIDRT #10 ampul.neb 06/13/19 Unknown Rx [DUONEB *Not for PRN Use*] amLODIPine 5 mg PO DAILY #30 06/13/19 Unknown Rx carvediloL [Coreg] 12.5 mg PO BID #60 tablet 06/13/19 Unknown Rx Allergies Allergy/AdvReac Type Severity Reaction Status Date / Time methadone AdvReac Vomiting Verified 08/08/17 20:43 tramadol AdvReac Vomiting Verified 08/08/17 20:43 unknown Allergy Unknown Uncoded 08/08/17 20:43 ED Review of Systems ROS: Stated complaint: DIALYSIS TREATMENT Other details as noted in HPI Comment: All other systems reviewed and negative Constitutional: denies: chills, fever Respiratory: denies: cough, shortness of breath Gastrointestinal: denies: abdominal pain, nausea Musculoskeletal: denies: back pain Neurological: confusion. denies: headache Medications and Allergies Allergies Allergy/AdvReac Type Severity Reaction Status Date / Time methadone AdvReac Vomiting Verified 08/08/17 20:43 tramadol AdvReac Vomiting Verified 08/08/17 20:43 unknown Allergy Unknown Uncoded 08/08/17 20:43 Home Medications Medication Instructions Recorded Confirmed Last Taken Type Pantoprazole Sodium [Protonix] 40 mg PO QAM 01/19/15 11/19/18 06/20/16 History Pravastatin Sodium [Pravachol] 40 mg PO HS #30 tablet 05/22/18 11/19/18 Unknown Rx Furosemide [Lasix TAB] 40 mg PO DAILY 11/19/18 11/19/18 Unknown History L. Acidophilus/Bifid. Animalis 1 each PO DAILY 11/19/18 11/19/18 Unknown History [Dialyvite Chewable Probiotic] Insulin Glargine,Hum.rec.anlog 10 units SQ QHS #5 pen 11/24/18 Unknown Rx [Lantus Solostar] lisinopriL [Zestril TAB] 20 mg PO QDAY #30 tablet 11/24/18 Unknown Rx Azithromycin 500 mg PO DAILY #7 tablet 06/13/19 Unknown Rx Docusate Sodium [Colace CAP] 100 mg PO BID capsule 06/13/19 Unknown Rx Insulin Glargine [Lantus VIAL] 10 units SUB-Q QHS #1 units 06/13/19 Unknown Rx Ipratropium/Albuterol Sulfate 1 ampul IH TIDRT #10 ampul.neb 06/13/19 Unknown Rx [DUONEB *Not for PRN Use*] amLODIPine 5 mg PO DAILY #30 06/13/19 Unknown Rx carvediloL [Coreg] 12.5 mg PO BID #60 tablet 06/13/19 Unknown Rx Active Meds: Active Medications Acetaminophen (Tylenol) 650 mg PO Q4H PRN PRN Reason: Pain MILD(1-3)/Fever >100.5/ALVARADO Albuterol/Ipratropium (Duoneb *Not For Prn Use*) 1 ampul IH TIDRT [facility] Last Admin: 11/03/19 08:08 Dose: 1 ampul Documented by: Amlodipine Besylate (Amlodipine) 5 mg PO DAILY [facility] Carvedilol (Coreg) 12.5 mg PO BID [facility] Docusate Sodium (Colace) 100 mg PO BID [facility] Hydromorphone HCl (Dilaudid) 0.5 mg IV Q3H PRN PRN Reason: Pain , Severe (7-10) Sodium Chloride (Nacl 0.9% 1000 Ml) 1,000 mls @ 75 mls/hr IV DIRECT [facility] Last Admin: 11/03/19 03:03 Dose: 75 mls/hr Documented by: Insulin Glargine (Lantus) 10 units SUB-Q QHS [facility] Lactobacillus Acidophilus (Lactinex) 1 each PO DAILY [facility] Lisinopril (Zestril) 20 mg PO QDAY [facility] Ondansetron HCl (Zofran) 4 mg IV Q8H PRN PRN Reason: Nausea And Vomiting Oxycodone/Acetaminophen (Percocet 5/325) 1 tab PO Q6H PRN PRN Reason: Pain, Moderate (4-6) Pantoprazole Sodium (Protonix) 40 mg PO QAM [facility] Pravastatin Sodium (Pravachol) 40 mg PO HS [facility] Sodium Chloride (Sodium Chloride Flush Syringe 10 Ml) 10 ml IV BID [facility] Sodium Chloride (Sodium Chloride Flush Syringe 10 Ml) 10 ml IV PRN PRN PRN Reason: LINE FLUSH Physical Examination - Vital Signs Vital Signs: Vital Signs Temp Pulse Resp BP Pulse Ox 98.5 F 84 20 99/61 95 11/02/19 11:59 11/02/19 11:59 11/02/19 11:59 11/02/19 11:59 11/02/19 11:59 - Physical Exam Narrative exam: Neurologic examination She is awake alert. She has good eye contact. She can tell her name and she can tell that it is Easter time. She cannot tell the date time or year. She does not look confused but has dementia. PERRLA EOMI. No arm drift no facial asymmetry. Results - Laboratory Findings CBC and BMP: 11/02/19 15:08 11/02/19 15:44 Abnormal Lab Findings: Abnormal Labs 11/02/19 11/02/19 11/02/19 14:10 14:10 15:08 RDW 17.5 H Eosinophils % (Manual) 5.0 H Basophils % (Manual) 2.0 H Lymphocytes # (Manual) 0.9 L PT 16.3 H INR 1.29 H Chloride Carbon Dioxide BUN Creatinine Glucose POC Glucose Hemoglobin A1c ALT 70 H Alkaline Phosphatase 214 H Total Creatine Kinase 168 H 11/02/19 11/03/19 11/03/19 15:44 00:14 00:17 RDW Eosinophils % (Manual) Basophils % (Manual) Lymphocytes # (Manual) PT INR Chloride 109.3 H Carbon Dioxide 15 L BUN 26 H Creatinine 1.9 H Glucose 168 H POC Glucose 256 H Hemoglobin A1c 8.7 H ALT Alkaline Phosphatase Total Creatine Kinase Assessment and Plan The patient examination shows that she is awake alert. She more likely has dementia which may be getting worse. Agree to have the MRI of the brain to look for any evidence for new stroke. CT brain without contrast shows atrophy. Further management after the MRI brain. Thank you
[2019-11-03] MEDS: carvediloL 12.5 MG TAB PO SCH ×2 (10:54→21:50)
[2019-11-03] MEDS: PANTOPRAZOLE 40 MG TAB PO SCH (10:54)
[2019-11-03] MEDS: LACTINEX CHEW TAB PO SCH (11:10)
[2019-11-03] MEDS: LISINOPRIL 20 MG TAB PO SCH (12:33)
--- NOTE | 2019-11-03 13:38 | Event Note ---
Date: 11/03/19 Pt states she is followed by Dr Yanes (teletype operator) who came by and saw her this morning I called Dr Yanes who confirmed this is an established pt of his practice and he rounded on her today We will sign off
--- NOTE | 2019-11-03 14:51 | Consultation ---
History of Present Illness - Reason for Consult Consult date: 11/03/19 acute renal failure, chronic renal failure Requesting physician: MICKY EMMANUEL - History of Present Illness 78-year-old lady who is well known to me with a history of type 2 diabetes mellitus, hypertension and chronic kidney disease. Patient was on hemodialysislast year but had improvement in kidney function and has been off of dialysis for most ENL. Patient stabilized at stage III's/4 chronic kidney disease. She also has a history of congestive heart failure. On her most recent office visits in July 2019, I GFR was 29 g/min. Patient was doing well. About a week ago when she started having intermittent episodes of confusion. Daughter also noticed increased urinary frequency. They were concerned about urinary tract infection causing alteration in mental status. They have not observed any focal weakness or numbness. Patient notes that "I am in the hospital". She does not recall why she was brought to the hospital. She states that her daughter and brought her care. The daughter who I spoke to on the Phone also stated that patient's blood sugar was 100 mg/dL at home. She did not have any episodes of hypoglycemia. Patient appears to be close to her baseline mental status when I examined her. Past History Past Medical History: diabetes, hypertension, hyperlipidemia, renal failure Past Surgical History: Other (AV access placement) Social history: lives with family. denies: smoking, alcohol abuse, prescription drug abuse, full code Family history: other (Unknown) Medications and Allergies Allergies Allergy/AdvReac Type Severity Reaction Status Date / Time methadone AdvReac Vomiting Verified 08/08/17 20:43 tramadol AdvReac Vomiting Verified 08/08/17 20:43 unknown Allergy Unknown Uncoded 08/08/17 20:43 Home Medications Medication Instructions Recorded Confirmed Last Taken Type Pantoprazole Sodium [Protonix] 40 mg PO QAM 01/19/15 11/19/18 06/20/16 History Pravastatin Sodium [Pravachol] 40 mg PO HS #30 tablet 05/22/18 11/19/18 Unknown Rx Furosemide [Lasix TAB] 40 mg PO DAILY 11/19/18 11/19/18 Unknown History L. Acidophilus/Bifid. Animalis 1 each PO DAILY 11/19/18 11/19/18 Unknown History [Dialyvite Chewable Probiotic] Insulin Glargine,Hum.rec.anlog 10 units SQ QHS #5 pen 11/24/18 Unknown Rx [Lantus Solostar] lisinopriL [Zestril TAB] 20 mg PO QDAY #30 tablet 11/24/18 Unknown Rx Azithromycin 500 mg PO DAILY #7 tablet 06/13/19 Unknown Rx Docusate Sodium [Colace CAP] 100 mg PO BID capsule 06/13/19 Unknown Rx Insulin Glargine [Lantus VIAL] 10 units SUB-Q QHS #1 units 06/13/19 Unknown Rx Ipratropium/Albuterol Sulfate 1 ampul IH TIDRT #10 ampul.neb 06/13/19 Unknown Rx [DUONEB *Not for PRN Use*] amLODIPine 5 mg PO DAILY #30 06/13/19 Unknown Rx carvediloL [Coreg] 12.5 mg PO BID #60 tablet 06/13/19 Unknown Rx Active Meds: Active Medications Acetaminophen (Tylenol) 650 mg PO Q4H PRN PRN Reason: Pain MILD(1-3)/Fever >100.5/ALVARADO Albuterol/Ipratropium (Duoneb *Not For Prn Use*) 1 ampul IH TIDRT [facility] Last Admin: 11/03/19 08:08 Dose: 1 ampul Documented by: Amlodipine Besylate (Amlodipine) 5 mg PO DAILY [facility] Last Admin: 11/03/19 10:53 Dose: 5 mg Documented by: Carvedilol (Coreg) 12.5 mg PO BID [facility] Last Admin: 11/03/19 10:54 Dose: 12.5 mg Documented by: Docusate Sodium (Colace) 100 mg PO BID [facility] Last Admin: 11/03/19 10:53 Dose: 100 mg Documented by: Hydromorphone HCl (Dilaudid) 0.5 mg IV Q3H PRN PRN Reason: Pain , Severe (7-10) Sodium Chloride (Nacl 0.9% 1000 Ml) 1,000 mls @ 75 mls/hr IV DIRECT [facility] Last Admin: 11/03/19 03:03 Dose: 75 mls/hr Documented by: Insulin Glargine (Lantus) 10 units SUB-Q QHS [facility] Lactobacillus Acidophilus (Lactinex) 1 each PO DAILY [facility] Last Admin: 11/03/19 11:10 Dose: 1 each Documented by: Lisinopril (Zestril) 20 mg PO QDAY [facility] Last Admin: 11/03/19 12:33 Dose: 20 mg Documented by: Ondansetron HCl (Zofran) 4 mg IV Q8H PRN PRN Reason: Nausea And Vomiting Oxycodone/Acetaminophen (Percocet 5/325) 1 tab PO Q6H PRN PRN Reason: Pain, Moderate (4-6) Pantoprazole Sodium (Protonix) 40 mg PO QAM [facility] Last Admin: 11/03/19 10:54 Dose: 40 mg Documented by: Pravastatin Sodium (Pravachol) 40 mg PO HS [facility] Sodium Chloride (Sodium Chloride Flush Syringe 10 Ml) 10 ml IV BID [facility] Last Admin: 11/03/19 10:55 Dose: 10 ml Documented by: Sodium Chloride (Sodium Chloride Flush Syringe 10 Ml) 10 ml IV PRN PRN PRN Reason: LINE FLUSH Review of Systems ROS unobtainable: due to mental status (patient states no to everything. Unclear if accurate) Exam - Vital Signs Vital signs: Vital Signs Temp Pulse Resp BP Pulse Ox 98.5 F 84 20 99/61 95 11/02/19 11:59 11/02/19 11:59 11/02/19 11:59 11/02/19 11:59 11/02/19 11:59 - Physical Exam Narrative exam: Elderly AAF in no acute distress HEENT: Normocephalic atraumatic, pupils equal round reactive to light Normal oropharynx, Neck: Supple, no venous distention, no goiter CVS: S1S2 RRR systolic murmur, No rub or gallop Lungs: Clear to auscultation, no use of accessory muscles of respiration Abdomen: Full, soft, nontender, no organomegaly no bruit, bowel sounds are present Extremities: No edema, no cyanosis or clubbing Urinary: Deferred Musculo-skeletal: No joint deformities or swelling Neuro: Awake, alert, no focal deficits Results - Lab Results 11/02/19 15:08 11/02/19 15:44 Most recent lab results Calcium 9.0 mg/dL (8.4-10.2) 11/02/19 15:44 Assessment and Plan - Patient Problems (1) Chronic kidney disease, stage 4 (severe) Current Visit: Yes Status: Acute Plan to address problem: chronic kidney disease presumably secondary to diabetic nephropathy/hypertensive nephrosclerosis. Kidney function is stable at baseline. (2) Acute delirium Current Visit: No Status: Acute Plan to address problem: acute delirium etiology uncertain. I agree with the MRI of the brain. No documented episodes of hypoglycemia that I was concerned about this. (3) Chronic kidney disease, stage III (moderate) Current Visit: No Status: Acute (4) Hypertensive chronic kidney disease with stage 1 through stage 4 chronic kidney disease, or unspecified chronic kidney disease Current Visit: No Status: Acute Plan to address problem: follow blood pressure on current medications (5) Type 2 diabetes mellitus with diabetic chronic kidney disease Current Visit: No Status: Acute Plan to address problem: blood sugar management by primary attending
--- NOTE | 2019-11-03 16:41 | Progress Note ---
Assessment and Plan Assessment and plan: Patient is 78 years old female with history of end-stage renal disease, currently not on dialysis according to patient daughter report. Patient also have history of hypertension and congestive heart failure. Patient brought to the emergency room by her daughter stating that she has been confused for the last week. She denied any fever or chills. She admitted that she is having frequent urination. Patient denied any chest pain, nausea or vomiting. In the ER patient is alert but confused. Patient is not oriented to time place and person. Patient is moving all her extremities with no focal weakness observed. In the ER there was no noted nausea vomiting or diarrhea fever. None was also reported at home. 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 if all remains stable. History Interval history: Patient seen and examined today resting comfortably. She answers all my que stions appropriately. Although she is tells me that she has not been on dialysis for some time. I am unsure as to the accuracy of this statement. Hospitalist Physical - Physical exam Narrative exam: VITAL SIGNS: Reviewed. GENERAL: The patient appears normally developed, Vital signs as documented. HEAD: No signs of head trauma. EYES: Pupils are equal. Extraocular motions intact. EARS: Hearing grossly intact. MOUTH: Oropharynx is normal. NECK: No adenopathy, no JVD. CHEST: Chest with clear breath sounds bilaterally. No wheezes, rales, or rhonchi. CARDIAC: Regular rate and rhythm. S1 and S2, without murmurs, gallops, or rubs. VASCULAR: No Edema. Peripheral pulses normal and equal in all extremities. ABDOMEN: Soft, non tender and non distended. No rebound or guarding, and no masses palpated. Bowel Sounds normal. MUSCULOSKELETAL: Good range of motion of all major joints. Extremities without clubbing, cyanosis or edema. NEUROLOGIC EXAM: Alert and oriented x 3 No focal sensory or strength deficits. Speech normal. Follows commands. PSYCHIATRIC: Mood normal. SKIN: detial exam as documented in skin assessment - Constitutional Vitals: Temp Pulse Resp BP Pulse Ox 99.1 F 82 18 176/81 96 11/03/19 12:28 11/03/19 14:59 11/03/19 14:59 11/03/19 12:33 11/03/19 12:28 Results - Labs CBC & Chem 7: 11/02/19 15:08 11/02/19 15:44 Labs: Laboratory Last Values WBC 4.5 K/mm3 (4.5-11.0) 11/02/19 15:08 RBC 3.83 M/mm3 (3.65-5.03) 11/02/19 15:08 Hgb 12.1 gm/dl (10.1-14.3) 11/02/19 15:08 Hct 37.2 % (30.3-42.9) 11/02/19 15:08 MCV 97 fl (79-97) 11/02/19 15:08 MCH 32 pg (28-32) 11/02/19 15:08 MCHC 33 % (30-34) 11/02/19 15:08 RDW 17.5 % (13.2-15.2) H 11/02/19 15:08 Plt Count 214 K/mm3 (140-440) 11/02/19 15:08 Add Manual Diff Complete 11/02/19 15:08 Total Counted 100 11/02/19 15:08 Seg Neuts % (Manual) 69.0 % (40.0-70.0) 11/02/19 15:08 Band Neutrophils % 0 % 11/02/19 15:08 Lymphocytes % (Manual) 19.0 % (13.4-35.0) 11/02/19 15:08 Reactive Lymphs % (Man) 0 % 11/02/19 15:08 Monocytes % (Manual) 5.0 % (0.0-7.3) 11/02/19 15:08 Eosinophils % (Manual) 5.0 % (0.0-4.3) H 11/02/19 15:08 Basophils % (Manual) 2.0 % (0.0-1.8) H 11/02/19 15:08 Metamyelocytes % 0 % 11/02/19 15:08 Myelocytes % 0 % 11/02/19 15:08 Promyelocytes % 0 % 11/02/19 15:08 Blast Cells % 0 % 11/02/19 15:08 Nucleated RBC % Not Reportable 11/02/19 15:08 Seg Neutrophils # Man 3.1 K/mm3 (1.8-7.7) 11/02/19 15:08 Band Neutrophils # 0.0 K/mm3 11/02/19 15:08 Lymphocytes # (Manual) 0.9 K/mm3 (1.2-5.4) L 11/02/19 15:08 Abs React Lymphs (Man) 0.0 K/mm3 11/02/19 15:08 Monocytes # (Manual) 0.2 K/mm3 (0.0-0.8) 11/02/19 15:08 Eosinophils # (Manual) 0.2 K/mm3 (0.0-0.4) 11/02/19 15:08 Basophils # (Manual) 0.1 K/mm3 (0.0-0.1) 11/02/19 15:08 Metamyelocytes # 0.0 K/mm3 11/02/19 15:08 Myelocytes # 0.0 K/mm3 11/02/19 15:08 Promyelocytes # 0.0 K/mm3 11/02/19 15:08 Blast Cells # 0.0 K/mm3 11/02/19 15:08 WBC Morphology Not Reportable 11/02/19 15:08 Hypersegmented Neuts Not Reportable 11/02/19 15:08 Hyposegmented Neuts Not Reportable 11/02/19 15:08 Hypogranular Neuts Not Reportable 11/02/19 15:08 Smudge Cells Not Reportable 11/02/19 15:08 Toxic Granulation Not Reportable 11/02/19 15:08 Toxic Vacuolation Not Reportable 11/02/19 15:08 Dohle Bodies Not Reportable 11/02/19 15:08 Pelger-Huet Anomaly Not Reportable 11/02/19 15:08 Anastasiya Rods Not Reportable 11/02/19 15:08 Platelet Estimate Not Reportable 11/02/19 15:08 Clumped Platelets Not Reportable 11/02/19 15:08 Plt Clumps, EDTA Not Reportable 11/02/19 15:08 Large Platelets Not Reportable 11/02/19 15:08 Giant Platelets Not Reportable 11/02/19 15:08 Platelet Satelliting Not Reportable 11/02/19 15:08 Plt Morphology Comment Not Reportable 11/02/19 15:08 RBC Morphology Normal 11/02/19 15:08 Dimorphic RBCs Not Reportable 11/02/19 15:08 Polychromasia Not Reportable 11/02/19 15:08 Hypochromasia Not Reportable 11/02/19 15:08 Poikilocytosis Not Reportable 11/02/19 15:08 Anisocytosis Not Reportable 11/02/19 15:08 Microcytosis Not Reportable 11/02/19 15:08 Macrocytosis Not Reportable 11/02/19 15:08 Spherocytes Not Reportable 11/02/19 15:08 Pappenheimer Bodies Not Reportable 11/02/19 15:08 Sickle Cells Not Reportable 11/02/19 15:08 Target Cells Not Reportable 11/02/19 15:08 Tear Drop Cells Not Reportable 11/02/19 15:08 Ovalocytes Not Reportable 11/02/19 15:08 Helmet Cells Not Reportable 11/02/19 15:08 [place] Bodies Not Reportable 11/02/19 15:08 [place] Rings Not Reportable 11/02/19 15:08 [place] Cells Not Reportable 11/02/19 15:08 Bite Cells Not Reportable 11/02/19 15:08 Crenated Cell Not Reportable 11/02/19 15:08 Elliptocytes Not Reportable 11/02/19 15:08 Acanthocytes (Spur) Not Reportable 11/02/19 15:08 Rouleaux Not Reportable 11/02/19 15:08 Hemoglobin C Crystals Not Reportable 11/02/19 15:08 Schistocytes Not Reportable 11/02/19 15:08 Malaria parasites Not Reportable 11/02/19 15:08 Remberto Bodies Not Reportable 11/02/19 15:08 Hem Pathologist Commnt No 11/02/19 15:08 PT 16.3 Sec. (12.2-14.9) H 11/02/19 14:10 INR 1.29 (0.87-1.13) H 11/02/19 14:10 APTT 30.5 Sec. (24.2-36.6) 11/02/19 14:10 Sodium 141 mmol/L (137-145) 11/02/19 15:44 Potassium 4.2 mmol/L (3.6-5.0) 11/02/19 15:44 Chloride 109.3 mmol/L (98-107) H 11/02/19 15:44 Carbon Dioxide 15 mmol/L (22-30) L 11/02/19 15:44 Anion Gap 21 mmol/L 11/02/19 15:44 BUN 26 mg/dL (7-17) H 11/02/19 15:44 Creatinine 1.9 mg/dL (0.7-1.2) H 11/02/19 15:44 Estimated GFR 31 ml/min 11/02/19 15:44 BUN/Creatinine Ratio 14 % 11/02/19 15:44 Glucose 168 mg/dL (65-100) H 11/02/19 15:44 POC Glucose 154 (70-105) H 11/03/19 12:41 Hemoglobin A1c 8.7 % (4-6) H 11/03/19 00:14 Lactic Acid 1.10 mmol/L (0.7-2.0) 11/02/19 14:10 Calcium 9.0 mg/dL (8.4-10.2) 11/02/19 15:44 Total Bilirubin 0.80 mg/dL (0.1-1.2) 11/02/19 14:10 Direct Bilirubin 0.2 mg/dL (0-0.2) 11/02/19 14:10 Indirect Bilirubin 0.6 mg/dL 11/02/19 14:10 AST 40 units/L (5-40) 11/02/19 14:10 ALT 70 units/L (7-56) H 11/02/19 14:10 Alkaline Phosphatase 214 units/L (35-129) H 11/02/19 14:10 Ammonia 35.0 umol/L (25-60) 11/02/19 14:10 Total Creatine Kinase 168 units/L (30-135) H 11/02/19 14:10 Troponin T < 0.010 ng/mL (0.00-0.029) 11/02/19 14:10 Troponin T < 0.010 ng/mL (0.00-0.029) 11/02/19 14:10 Total Protein 7.6 g/dL (6.3-8.2) 11/02/19 14:10 Albumin 4.0 g/dL (3.9-5) 11/02/19 14:10 Albumin/Globulin Ratio 1.1 % 11/02/19 14:10 TSH 1.720 mlU/mL (0.270-4.200) 11/02/19 14:10 Urine Color Straw (Yellow) 11/03/19 00:46 Urine Turbidity Clear (Clear) 11/03/19 00:46 Urine pH 6.0 (5.0-7.0) 11/03/19 00:46 Ur Specific [place] 1.011 (1.003-1.030) 11/03/19 00:46 Urine Protein 100 mg/dl mg/dL (Negative) 11/03/19 00:46 Urine Glucose (UA) 50 mg/dL (Negative) 11/03/19 00:46 Urine Ketones Neg mg/dL (Negative) 11/03/19 00:46 Urine Blood Sm (Negative) 11/03/19 00:46 Urine Nitrite Neg (Negative) 11/03/19 00:46 Urine Bilirubin Neg (Negative) 11/03/19 00:46 Urine Urobilinogen < 2.0 mg/dL (<2.0) 11/03/19 00:46 Ur Leukocyte Esterase Neg (Negative) 11/03/19 00:46 Urine WBC (Auto) 1.0 /HPF (0.0-6.0) 11/03/19 00:46 Urine RBC (Auto) 3.0 /HPF (0.0-6.0) 11/03/19 00:46 U Epithel Cells (Auto) 1.0 /HPF (0-13.0) 11/03/19 00:46 Hyaline Casts 1 /LPF 11/03/19 00:46 Microbiology: Microbiology 11/02/19 Unknown Peripheral/Venous Blood Culture - Preliminary NO GROWTH AFTER 24 HOURS 11/02/19 Unknown Peripheral/Venous Blood Culture - Preliminary NO GROWTH AFTER 24 HOURS Cohen/IV: Voiding Method Bedside Commode IV Catheter Type [Right Peripheral IV Antecubital] Active Medications - Current Medications Current Medications: Generic Name Dose Route Start Last Admin Trade Name Freq PRN Reason Stop Dose Admin Acetaminophen 650 mg 11/03/19 00:11 Tylenol PO Q4H PRN Pain MILD(1-3)/Fever >100.5/AVLARADO Albuterol/Ipratropium 1 ampul 11/03/19 08:00 11/03/19 14:55 Duoneb *Not For Prn Use* IH 1 ampul TIDRT MUNA Administration Amlodipine Besylate 5 mg 11/03/19 10:00 11/03/19 10:53 Amlodipine PO 5 mg DAILY MUNA Administration Carvedilol 12.5 mg 11/03/19 10:00 11/03/19 10:54 Coreg PO 12.5 mg BID MUNA Administration Docusate Sodium 100 mg 11/03/19 10:00 11/03/19 10:53 Colace PO 100 mg BID MUNA Administration Hydromorphone HCl 0.5 mg 11/03/19 00:11 Dilaudid IV Q3H PRN Pain , Severe (7-10) Sodium Chloride 1,000 mls @ 75 mls/hr 11/03/19 00:15 11/03/19 03:03 Nacl 0.9% 1000 Ml IV 75 mls/hr DIRECT MUNA Administration Insulin Glargine 10 units 11/03/19 22:00 Lantus SUB-Q QHS MUNA Lactobacillus Acidophilus 1 each 11/03/19 10:00 11/03/19 11:10 Lactinex PO 1 each DAILY MUNA Administration Lisinopril 20 mg 11/03/19 10:00 11/03/19 12:33 Zestril PO 20 mg QDAY MUNA Administration Ondansetron HCl 4 mg 11/03/19 00:11 Zofran IV Q8H PRN Nausea And Vomiting Oxycodone/Acetaminophen 1 tab 11/03/19 00:11 Percocet 5/325 PO Q6H PRN Pain, Moderate (4-6) Pantoprazole Sodium 40 mg 11/03/19 10:00 11/03/19 10:54 Protonix PO 40 mg QAM MUNA Administration Pravastatin Sodium 40 mg 11/03/19 22:00 Pravachol PO HS MUNA Sodium Chloride 10 ml 11/03/19 10:00 11/03/19 10:55 Sodium Chloride Flush Syringe 10 Ml IV 10 ml BID MUNA Administration Sodium Chloride 10 ml 11/03/19 00:11 Sodium Chloride Flush Syringe 10 Ml IV PRN PRN LINE FLUSH
--- NOTE | 2019-11-03 17:09 | Magnetic Resonance Report ---
NONENHANCED MR SCAN OF THE BRAIN: INDICATION / CLINICAL INFORMATION: MAIN: Encephalopathy, WEAKNESS, CONFUSION. TECHNIQUE: Multiplanar, multisequence MR images of the brain obtained. COMPARISON: CT scan of the head from 11/02/2019 FINDINGS: BRAIN / INTRACRANIAL CONTENTS: No acute ischemia, acute hemorrhage, mass effect, midline shift, or hy drocephalus. No acute parenchymal lesion in the brain especially in the temporal lobes. No chronic in farct or focal area of encephalomalacia; mild cortical involution; moderate volume loss in the hippoc ampal head bilaterally. Confluent periventricular white matter hyperintensity (moderate); deep hemisp heric white matter lesions ([place] 2) CRANIOCERVICAL JUNCTION: No significant abnormality. VASCULAR FLOW-VOIDS: No significant abnormality. ORBITS: No significant abnormality of visualized orbits. SINUSES / MASTOIDS: Moderate mucosal thickening in the left maxillary sinus ADDITIONAL FINDINGS: Spondylotic changes in the mid cervical spine; ligamentous hypertrophy and narro wing the odontoid process IMPRESSION: No acute parenchymal lesion in the brain Signer Name: Kermit Garcia MD Signed: 11/03/2019 5:05 PM Workstation Name: [id number]
[2019-11-03] MEDS ORDERED: PRAVASTATIN 40 MG TAB PO SCH (22:00)
[2019-11-03] MEDS ORDERED: INSULIN GLARGINE 100 UNITS/ML SUB-Q SCH (22:00)
[2019-11-04 04:19] LABS: Basophils % (Auto) 0.6 % (0.0-1.8); Eosinophils # (Auto) 0.2 K/mm3 (0.0-0.4); Hematocrit 34.1 % (30.3-42.9); Hemoglobin 11.4 gm/dl (10.1-14.3); Lymphocytes # (Auto) 1.2 K/mm3 (1.2-5.4); Lymphocytes % (Auto) 24.8 % (13.4-35.0); Mean Corpuscular HGB Conc 34 % (30-34); Mean Corpuscular Volume 97 fl (79-97); Monocytes # (Auto) 0.4 K/mm3 (0.0-0.8); Monocytes % (Auto) 9.1 % (0.0-7.3); Platelet Count 224 K/mm3 (140-440); Red Blood Count 3.52 M/mm3 (3.65-5.03); Red Cell Distribution Width 17.6 % (13.2-15.2)
[2019-11-04 04:40] LABS: Albumin 3.7 g/dL (3.9-5); Calcium 8.4 mg/dL (8.4-10.2)
[2019-11-04] MEDS: IPRATROPIUM/ALBUTEROL SULFATE 3 ML AMPUL.NEB IH SCH ×2 (08:06→14:34)
[2019-11-04] MEDS: carvediloL 12.5 MG TAB PO SCH (09:35)
[2019-11-04] MEDS: LACTINEX CHEW TAB PO SCH (09:35)
[2019-11-04] MEDS: LISINOPRIL 20 MG TAB PO SCH (09:35)
[2019-11-04] MEDS: DOCUSATE SODIUM 100 MG CAP PO SCH (09:35)
[2019-11-04] MEDS: amLODIPine 5 MG TAB PO SCH (09:35)
[2019-11-04] MEDS: PANTOPRAZOLE 40 MG TAB PO SCH (09:35)
[2019-11-04 12:06] VITALS: BP 155/69
--- NOTE | 2019-11-04 12:48 | Progress Note ---
Assessment and Plan The patient examination shows that she is awake alert. She more likely has dementia which may be getting worse. MRI brain without contrast did not show any acute stroke. CT brain without contrast shows atrophy. . No further neurologic intervention at this time. The patient should go to long- term facility or to home. Should be followed by our neurologist as an outpatient. Signing off the patient from the neurology service. Please call neurology whenever required. Thank you. Subjective Interval history: Patient is 78 years old female with history of end-stage renal disease, currentl y not on dialysis.The patient was admitted because it was reported by her daughter that she has been more confused than usual. She admitted that she is having frequent urination. Patient denied any chest pain, nausea or vomiting. The patient is doing well she has been walking. Objective - Exam Narrative Exam: The patient is alert awake. She went to the bathroom and she is changing her clothes. She can talk. She is following the commands. She has dementia. Cranial nerves II to XII normal. Motor examination seems to be have good bilateral upper and lower extremities. - Vital Sign Vital Signs - 12hr 11/04/19 11/04/19 11/04/19 05:00 08:00 08:38 Temperature 98 F 97.9 F Pulse Rate 60 58 L Pulse Rate [ Anterior Bilateral Throughout] Respiratory 20 18 Rate Respiratory Rate [Anterior Bilateral Throughout] Blood Pressure 116/92 Blood Pressure 154/71 [Left] O2 Sat by Pulse 95 77 L 97 Oximetry 11/04/19 11/04/19 11/04/19 08:39 09:00 09:35 Temperature Pulse Rate 73 58 L Pulse Rate [ 68 Anterior Bilateral Throughout] Respiratory Rate Respiratory 18 Rate [Anterior Bilateral Throughout] Blood Pressure 116/92 Blood Pressure [Left] O2 Sat by Pulse Oximetry 11/04/19 11:59 Temperature 98.8 F Pulse Rate 76 Pulse Rate [ Anterior Bilateral Throughout] Respiratory 18 Rate Respiratory Rate [Anterior Bilateral Throughout] Blood Pressure 155/69 Blood Pressure [Left] O2 Sat by Pulse 100 Oximetry - Laboratory Findings CBC and BMP: 11/04/19 03:36 11/04/19 03:36 Abnormal Lab Findings: Abnormal Labs 11/02/19 11/02/19 11/02/19 14:10 14:10 15:08 RBC MCH RDW 17.5 H [place] % (Auto) Eos % (Auto) Eosinophils % (Manual) 5.0 H Basophils % (Manual) 2.0 H Lymphocytes # (Manual) 0.9 L PT 16.3 H INR 1.29 H Chloride Carbon Dioxide BUN Creatinine Glucose POC Glucose Hemoglobin A1c ALT 70 H Alkaline Phosphatase 214 H Total Creatine Kinase 168 H Albumin 11/02/19 11/03/19 11/03/19 15:44 00:14 00:17 RBC MCH RDW [place] % (Auto) Eos % (Auto) Eosinophils % (Manual) Basophils % (Manual) Lymphocytes # (Manual) PT INR Chloride 109.3 H Carbon Dioxide 15 L BUN 26 H Creatinine 1.9 H Glucose 168 H POC Glucose 256 H Hemoglobin A1c 8.7 H ALT Alkaline Phosphatase Total Creatine Kinase Albumin 11/03/19 11/03/19 11/03/19 12:41 17:35 21:33 RBC MCH RDW [place] % (Auto) Eos % (Auto) Eosinophils % (Manual) Basophils % (Manual) Lymphocytes # (Manual) PT INR Chloride Carbon Dioxide BUN Creatinine Glucose POC Glucose 154 H 163 H 321 H Hemoglobin A1c ALT Alkaline Phosphatase Total Creatine Kinase Albumin 11/04/19 11/04/19 11/04/19 00:55 03:36 03:36 RBC 3.52 L MCH 33 H RDW 17.6 H [place] % (Auto) 9.1 H Eos % (Auto) 5.0 H Eosinophils % (Manual) Basophils % (Manual) Lymphocytes # (Manual) PT INR Chloride 114.0 H Carbon Dioxide 20 L BUN 25 H Creatinine 1.6 H Glucose 126 H POC Glucose 223 H Hemoglobin A1c ALT Alkaline Phosphatase 161 H Total Creatine Kinase Albumin 3.7 L 11/04/19 11/04/19 11/04/19 08:10 10:13 11:57 RBC MCH RDW [place] % (Auto) Eos % (Auto) Eosinophils % (Manual) Basophils % (Manual) Lymphocytes # (Manual) PT INR Chloride Carbon Dioxide BUN Creatinine Glucose POC Glucose 67 L 129 H 144 H Hemoglobin A1c ALT Alkaline Phosphatase Total Creatine Kinase Albumin
--- NOTE | 2019-11-04 13:23 | Discharge Summary ---
Providers - Providers Date of Admission: 11/02/19 23:00 Attending physician: MICKY EMMANUEL MD 11/03/19 00:11 Consult to Physician [CONS] Routine Comment: Consulting Provider: BRAXTON DOUGLAS Physician Instructions: Reason For Exam: PORSHA 11/03/19 07:11 Consult to Physician [CONS] Routine Comment: Consulting Provider: KATHY WILLETT Physician Instructions: Reason For Exam: Encephalopathy Primary care physician: [facility] [employer] [facility]ER [id number] Hospitalization Reason for admission: encephalopathy Condition: Stable Hospital course: Patient is 78 years old female with history of end-stage renal disease, currently not on dialysis according to patient daughter report. Patient also have history of hypertension and congestive heart failure. Patient brought to the emergency room by her daughter stating that she has been confused for the last week. She denied any fever or chills. She admitted that she is having frequent urination. Patient denied any chest pain, nausea or vomiting. In the ER patient is alert but confused. Patient is not oriented to time place and person. Patient is moving all her extremities with no focal weakness observed. In the ER there was no noted nausea vomiting or diarrhea fever. None was also reported at home. Patient underwent dialysis and with control of BG. She is currently stable for discharge. MRI was done and was negative. 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 GENERAL: The patient appears normally developed, Vital signs as documented. HEAD: No signs of head trauma. EYES: Pupils are equal. Extraocular motions intact. EARS: Hearing grossly intact. MOUTH: Oropharynx is normal. NECK: No adenopathy, no JVD. CHEST: Chest with clear breath sounds bilaterally. No wheezes, rales, or rhonchi. CARDIAC: Regular rate and rhythm. S1 and S2, without murmurs, gallops, or rubs. VASCULAR: No Edema. Peripheral pulses normal and equal in all extremities. ABDOMEN: Soft, non tender and non distended. No rebound or guarding, and no masses palpated. Bowel Sounds normal. MUSCULOSKELETAL: Good range of motion of all major joints. Extremities without clubbing, cyanosis or edema. NEUROLOGIC EXAM: Alert and oriented x 3 No focal sensory or strength deficits. Speech normal. Follows commands. PSYCHIATRIC: Mood normal. SKIN: detial exam as documented in skin assessment - Constitutional Vitals: Temp Pulse Resp BP Pulse Ox 98.8 F 76 18 155/69 100 11/04/19 11:59 11/04/19 11:59 11/04/19 11:59 11/04/19 11:59 11/04/19 11:59 Plan Activity: advance as tolerated, fall precautions Diet: low fat, diabetic, renal Special Instructions: record daily weights, record daily BP diary, record blood sugar diary Follow up with: PRIMARY MD KURT [Primary Care Provider] - 3-5 Days ELLE PARKS MD [Staff Physician] - 7 Days
== END 2019-11-04 14:15 | disposition home or self-care (01) ==
LOC: ED 11:49 → 4A 23:00
PROVIDERS: ADMIT Internal Medicine; ATTEND Internal Medicine
DX: G93.40 Encephalopathy, unspecified (principal); I13.2 Hypertensive heart and chronic kidney disease with heart failure and with stage 5 chronic kidney disease, or end stage renal disease; I50.9 Heart failure, unspecified; N18.6 End stage renal disease; E11.22 Type 2 diabetes mellitus with diabetic chronic kidney disease; R41.0 Disorientation, unspecified; E11.65 Type 2 diabetes mellitus with hyperglycemia; K21.9 Gastro-esophageal reflux disease without esophagitis; E78.5 Hyperlipidemia, unspecified; Z79.899 Other long term (current) drug therapy; Z98.890 Other specified postprocedural states; Z98.891 History of uterine scar from previous surgery; Z79.4 Long term (current) use of insulin
CPT/HCPCS: 36415; 70450; 70551; 71045; 74176; 80048; 80053; 80076; 81001; 82140; 82550; 82962; 83036; 84443; 84484; 85007; 85025; 85610; 85730; 87040; 87086; 93005; 93010; 94640; 94760; 96360; 96361; 99291; A9270; G0378; J7030; J1815